=== PATIENT | female | born 1960 ===

== ENCOUNTER 2017-07-20 13:53 | Inpatient (IN) | payer MEDICARE, MEDICAID ==
[2017-07-20 13:53] VITALS: BMI 21.1
[2017-07-20] MEDS ORDERED: Sodium Chloride 0.9% 1,000 ML IV ONE ×2 (14:57→16:52)
--- NOTE | 2017-07-20 15:04 | C.PDOC ---
History Of Present Illness Patient is a 56 y/o F with hx of HIV, CD4 unknown (documented in chart but no positive serology, non-compliant with meds x 2 weeks, SVT (documented on 2016 in chart, no prior EKG to confirm), schizophrenia c/o "pain all over." When attempting to further elicit complaints she reports new R sided foot pain, L foot pain x 6 years, and palpitations. Patient is agitated, with flight of ideas , and nonsensical speech hence further history is unable to be obtained. Time Seen by Provider: 07/20/17 14:16 Chief Complaint (Nursing): Lower Extremity Problem/Injury History Per: Patient History/Exam Limitations: other (agitation, nonsensical speech) Onset/Duration Of Symptoms: Days Current Symptoms Are (Timing): Still Present Recent travel outside of the [place]: No Additional History Per: Patient Past Medical History Reviewed: Historical Data, Nursing Documentation, Vital Signs Vital Signs: Last Vital Signs Temp 101.7 F H 07/20/17 15:20 Pulse 94 H 07/20/17 15:57 Resp 14 07/20/17 15:57 BP 106/69 07/20/17 15:57 Pulse Ox 100 07/20/17 17:10 - Medical History PMH: Anxiety, Bipolar Disorder, HIV, Schizophrenia Denies: Diabetes, Hepatitis, HTN, Seizures, Sexually Transmitted Disease Surgical History: No Surg Hx Family History: States: Unknown Family Hx - Social History Hx Tobacco Use: Yes Hx Alcohol Use: No Hx Substance Use: Yes (LAST USE 5 WEEKS AGO) - Immunization History Hx Tetanus Toxoid Vaccination: No Hx Influenza Vaccination: No Hx Pneumococcal Vaccination: No Review Of Systems Review Of Systems: ROS cannot be obtained secondary to pt's inabilty to answer questions. Physical Exam - Physical Exam Appears: Non-toxic, Agitated, Other (nonsensical speech) Skin: Normal Color, Warm, Dry Head: Atraumatic, Normacephalic Eye(s): bilateral: Normal Inspection, PERRL, EOMI Nose: No Discharge Oral Mucosa: Moist Neck: Normal ROM, Supple Chest: Symmetrical Cardiovascular: Rhythm Regular (Tachycardic), No Murmur Respiratory: Normal Breath Sounds, No Rales, No Rhonchi, No Wheezing Gastrointestinal/Abdominal: Soft, No Tenderness, No Distention, No Rebound Back: Normal Inspection, No CVA Tenderness Extremity: Normal ROM ( X4), No Pedal Edema, No Calf Tenderness, Capillary Refill (< 2 seconds), No Deformity, No Swelling, Other (well healed right toe amputation, no cellulitis, edema, tenderness. distal pulses intact.) Neurological/Psych: Other (flight of ideas, non-sensical speech, emotionally labile, agitated) Disoriented To: Place, Time ED Course And Treatment - Laboratory Results Result Diagrams: 07/20/17 15:07 07/20/17 15:07 O2 Sat by Pulse Oximetry: 100 (On RA) Pulse Ox Interpretation: Normal - Other Rad Foot X-Ray X-Ray: Interpreted by Me, Viewed By Me Interpretation: HISTORY: R foot pain. COMPARISON: 12/05/2014. FINDINGS: BONES: Interval amputation -mid 1st proximal phalangeal shaft level. No periosteal reaction. No subcutaneous emphysema. JOINTS: Normal. SOFT TISSUES : Normal. OTHER FINDINGS: None. IMPRESSION: Interval amputation 1st digit as above. Otherwise unremarkable Progress Note: Plan: -VBG shock panel, EKG, CXR, adenosine 6 mg IVP, IV fluids , Tylenol 650 mg PO, Blood culture, urine culture, Foot X-Ray, UA Critical Care Time - Critical Care Note Total Time (in mins): 30 Documented critical care: time excludes all time spent performing seperately billable procedures. Medical Decision Making Medical Decision Making: MD was called to bed site immediately on triage. EKG showed SVT at 204 bpm, adenosine was given with repeat EKG now showing NSR at 99 BPM, with incomplete RBBB, non specific ST changes, and isolated ST depression in V4 less than 2 mm. Repeat BP was 100/67. Rectal temp showed temp:101.7. Blood and urine cultures ordered. Vbg with lactate ordered. 3:52PM Cxray shows R sided infiltrate. Read officially as "Interval bilateral patchy infiltrate -more conspicuous in the mid right lung zone" LDH WNL. Covered with azithromycin and ceftriaxone. Flu negative. Lactate WNL. Normal O2 saturation. BP WNL. 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 ID and pysch consult placed. Patient is less agitated on reevaluation and seems to understand the need for admission for pneumonia. She reports that she usually follows up at [facility] Disposition - Disposition Disposition: HOSPITALIZED Disposition Time: 14:25 Condition: FAIR Forms: [facility] (Uzbek) - Clinical Impression Clinical Impression: Fever, SVT (supraventricular tachycardia), Schizophrenia, Pneumonia - Scribe Statement The provider has reviewed the documentation as recorded by the Scribe Derrick Mendes All medical record entries made by the Scribe were at my direction and personally dictated by me. I have reviewed the chart and agree that the record accurately reflects my personal performance of the history, physical exam, medical decision making, and the department course for this patient. I have also personally directed, reviewed, and agree with the discharge instructions and disposition.
[2017-07-20 15:12] LABS: BASO # 0.1 K/uL (0.0-0.2); BASO % 0.7 % (0.0-2.0); EOS % 0.1 % (0.0-4.0); HEMATOCRIT 31.6 % (34.0-47.0); LYMPH # 2.8 K/uL (1.0-4.3); LYMPH % 24.3 % (20.0-40.0); MEAN CELL VOLUME 85.7 fL (81.0-99.0); MEAN CORPUSCULAR HEMOGLOBIN 27.9 pg (27.0-31.0); MEAN CORPUSCULAR HGB CONC 32.5 g/dL (33.0-37.0); MEAN PLATELET VOLUME 7.9 fL (7.2-11.7); MONO # 1.2 K/uL (0.0-0.8); MONO % 10.1 % (0.0-10.0); NRBC % 0.1 % (0.0-2.0); WHITE BLOOD COUNT 11.7 K/uL (4.8-10.8)
[2017-07-20 15:28] LABS: ALCOHOL SERUM < 10 mg/dl (0-10); BILIRUBIN,TOTAL 0.7 mg/dL (0.2-1.3); CALCIUM 7.9 mg/dl (8.6-10.4); GFR AFRICAN-AMERICAN > 60; GLUCOSE,RANDOM 99 mg/dL (65-105)
[2017-07-20 15:31] LABS: ALB/GLOB RATIO 0.8 (1.0-2.1); INR 1.2
[2017-07-20 15:33] LABS: AST/SGOT 63 U/L (14-36); BLOOD UREA NITROGEN 29 mg/dL (7-17); CARBON DIOXIDE 22 mmol/L (22-30); CHLORIDE 103 mmol/L (98-107); MAGNESIUM 1.9 mg/dL (1.6-2.3); PHOSPHOROUS 4.5 mg/dL (2.5-4.5); POTASSIUM 5.2 mmol/L (3.6-5.2); SODIUM 133 mmol/L (132-148); TOTAL PROTEIN 7.1 g/dL (6.3-8.3)
[2017-07-20 15:34] LABS: ALKALINE PHOSPHATASE 91 U/L (38-126); ALT/SGPT 54 U/L (9-52)
[2017-07-20] MEDS ORDERED: cefTRIAXone IV 1 gm in Dextros 50 ML IVPB ONE (15:51)
[2017-07-20] MEDS ORDERED: Azithromycin 500 MG in Sodium Chloride 0.9% 250 ML IVPB STA (15:51)
[2017-07-20 16:23] LABS: VENOUS BLOOD GAS BASE EXCESS -7.1 mmol/L (0.0-2.0); VENOUS BLOOD GAS PCO2 29 mmHg (40-60); VENOUS BLOOD PH 7.37 (7.32-7.43)
--- NOTE | 2017-07-20 16:28 | RAD ---
PROCEDURE: Right Foot Radiographs. HISTORY: R foot pain COMPARISON: 12/05/2014 FINDINGS: BONES: Interval amputation -mid 1st proximal phalangeal shaft level. No periosteal reaction. No subcutaneous emphysema. JOINTS: Normal. SOFT TISSUES: Normal. OTHER FINDINGS: None. IMPRESSION: Interval amputation 1st digit as above. Otherwise unremarkable
--- NOTE | 2017-07-20 16:40 | RAD ---
HISTORY: chest tightness COMPARISON: 08/28/2015 FINDINGS: LUNGS: Interval patchy infiltrates -mid right lung zone and left lung base noted PLEURA: No significant pleural effusion identified, no pneumothorax apparent. CARDIOVASCULAR: Minimal cardiomegaly-similar OSSEOUS STRUCTURES: No significant abnormalities. VISUALIZED UPPER ABDOMEN: Normal. OTHER FINDINGS: None. IMPRESSION: Interval bilateral patchy infiltrate -more conspicuous in the mid right lung zone
[2017-07-20 16:54] LABS: RBC URINE < 1 /hpf (0-3); URINE BACTERIA RARE (<OCC); URINE BILIRUBIN NEGATIVE (NEGATIVE); URINE BLOOD NEGATIVE (NEGATIVE); URINE COLOR Yellow (YELLOW); URINE GLUCOSE (UA) NORMAL (Normal); URINE KETONE TRACE mg/dL (NEGATIVE); URINE LEUKOCYTE ESTERASE NEG Leu/uL (Negative); URINE PROTEIN 1+ mg/dL (NEGATIVE); WBC URINE 1 /hpf (0-5)
[2017-07-21 07:51] LABS: BASO % 0.5 % (0.0-2.0); EOS # 0.1 K/uL (0.0-0.7); EOS % 1.2 % (0.0-4.0); HEMATOCRIT 31.1 % (34.0-47.0); LYMPH # 1.3 K/uL (1.0-4.3); LYMPH % 24.7 % (20.0-40.0); MEAN CELL VOLUME 86.5 fL (81.0-99.0); MEAN CORPUSCULAR HEMOGLOBIN 27.8 pg (27.0-31.0); MEAN CORPUSCULAR HGB CONC 32.1 g/dL (33.0-37.0); MEAN PLATELET VOLUME 7.8 fL (7.2-11.7); MONO # 0.5 K/uL (0.0-0.8); MONO % 9.2 % (0.0-10.0)
[2017-07-21 07:54] LABS: WHITE BLOOD COUNT 5.5 K/uL (4.8-10.8)
[2017-07-21 08:27] LABS: ALB/GLOB RATIO 0.9 (1.0-2.1); ALKALINE PHOSPHATASE 90 U/L (38-126); ALT/SGPT 57 U/L (9-52); AST/SGOT 44 U/L (14-36); BILIRUBIN,TOTAL 0.2 mg/dL (0.2-1.3); BLOOD UREA NITROGEN 19 mg/dL (7-17); CALCIUM 7.9 mg/dl (8.6-10.4); CARBON DIOXIDE 24 mmol/L (22-30); CHLORIDE 112 mmol/L (98-107); GFR AFRICAN-AMERICAN > 60; GLUCOSE,RANDOM 129 mg/dL (65-105); POTASSIUM 3.9 mmol/L (3.6-5.2); SODIUM 142 mmol/L (132-148); TOTAL PROTEIN 5.9 g/dL (6.3-8.3)
[2017-07-21] MEDS: Enoxaparin 40 mg Syringe SC SCH (10:47)
--- NOTE | 2017-07-21 15:02 | PCM.PSYCH ---
Initial Psychiatric Evaluation - Initial Psychiatric Evaluation Type of Admission: Voluntary Legal Status: Capacity Chief Complaint (in patient's own words): " My foot just hurts" History of Present Illness and Precipitating Events: The pt is seen, chart reviewed, case discussed with staff Pt is a 56 y/o single female with a history HIV, SVT, Schizophrenia presents to the ED for generalized pain. As per the ED note, Patient c/o "pain all over." When attempting to further elicit complaints she reports new R sided foot pain, L foot pain x 6 years, and palpitations. Patient is agitated, with flight of ideas, and nonsensical speech hence further history is unable to be obtained Pt reports that she is homeless and unemployed. Pt appears disorganized, disheveled, and experiencing Tardive Dyskinesia. Pt reports feelings of anxiety. Pt denies suicidal and homicidal ideations. Pt denies feleing depressed and paranoia at the moment. Pt stated that she slept great and her appetite was good. The pt is a poor historian. Pt reports crack cocaine use 5 weeks ago. She used to smoke "$20-40 worth of crack cocaine for 5 and 1/2 years occasionally. Pt reports smoking 1/2 pack of cigarettes a day for an unspecified amount of time. Pt denies use of other illicit drugs. Pt has a constricted affect and disorganized speech pattern. Pt is AAOx3. Past MHX: HIV, SVT, Schizophrenia Current Medications: Active Medications Generic Name Dose Route Start Last Admin Trade Name Freq PRN Reason Stop Dose Admin Acetaminophen 650 mg 07/20/17 22:59 Tylenol 325mg Tab PO Q6 PRN temp >100.4 or pain Albuterol Sulfate 1.25 mg 07/21/17 16:00 Albuterol 0.042% Inhal Nicol (1.25mg/3ml) Ud INH RQ6 [facility] Enoxaparin Sodium 40 mg 07/21/17 10:30 07/21/17 10:47 Lovenox SC 40 mg DAILY [facility]I Administration Azithromycin 500 mg/ Sodium 250 mls @ 250 mls/hr 07/21/17 17:00 Chloride IVPB DAILY@1700 [facility] Ceftriaxone Sodium 1 gm/ 100 mls @ 100 mls/hr 07/21/17 18:00 Sodium Chloride IVPB BID [facility] Pneumococcal Polyvalent Vaccine 0.5 ml 07/24/17 10:00 Pneumovax 23 Vaccine IM 07/24/17 10:01 .ONCE ONE Past Psychiatric History - Past Psychiatric History Previous Treatment History: Inpatient Pertinent Medical Hx (Current Medical&Sleep Prob, Allergies): Allergies Allergy/AdvReac Type Severity Reaction Status Date / Time ibuprofen Allergy ANAPHYLAXIS Verified 07/20/17 14:48 Gabapentin 300 tab PO TID 06/06/14 Adderall 30 mg PO BID 01/29/15 Ibuprofen 1 tab PO Q6H PRN #15 tab 01/29/15 Benztropine [Cogentin] 1 mg PO BID #60 tab 07/29/15 QUEtiapine [Seroquel] 100 mg PO HS #30 tab 07/29/15 fluPHENAZine [Prolixin] 10 mg PO BID #60 tab 07/29/15 Ibuprofen [Motrin] 400 mg PO Q6 #30 tab 06/11/16 Naproxen [Naprosyn] 1 tab PO BID PRN #25 tab 12/20/16 Unobtainable 03/20/17 Review of Systems - Review of Systems All systems: reviewed and no additional remarkable complaints except - Psychiatric Psychiatric: Anxiety, Irritability, Mood Swings, Paranoia Mental Status Examination - Personal Presentation Personal Presentation: Looks stated age - Affect Affect: Constricted - Motor Activity Motor Activity: Calm - Reliability in Providing Information Reliability in Providing Information: Poor, due to altered mood - Speech Speech: Disorganized - Mood Mood: Depressed - Formal Thought Process Formal Thought Process: Loosening of associations - Obsessions/Compulsions Obsessions: No Compulsions: No - Cognitive Functions Orientation: Person, Place, Situation, Time Sensorium: Alert Attention/Concentration: Attentive Abstract Thinking: [place] Estimate of Intelligence: Below average Judgement: Imparied, as evidence by: Poor judgement, Imparied, as evidence by: Lack of insight into illness - Risk Risk: Diminished functioning DSM 5 DX - DSM 5 DSM 5 Diagnosis: Cocaine use disorder SCPT - Recommended/Plan of Treatment Treatment Recommendations and Plan of Treatment: Hold all psych meds. - Smoking Cessation Smoking Cessation Initiated: No
[2017-07-21] MEDS: Albuterol 0.042% Inhal Sol (1.25 mg/3 mL) UD INH SCH ×2 (16:23→19:34)
[2017-07-21] MEDS: Azithromycin 500 MG in Sodium Chloride 0.9% 250 ML IVPB SCH (17:20)
--- NOTE | 2017-07-21 22:12 | CP.PCM.CON ---
History of Present Illness - History of Present Illness History of Present Illness: dictated Past Patient History - Infectious Disease Hx of Infectious Diseases: None - Past Social History Smoking Status: Heavy Smoker > 10 Cigarettes Daily - CARDIAC Hx Cardiac Disorders: No Hx Hypertension: No - PULMONARY Hx Respiratory Disorders: No Hx Tuberculosis: No - NEUROLOGICAL Hx Neurological Disorder: No Hx Seizures: No - HEENT Hx HEENT Problems: No - RENAL Hx Chronic Kidney Disease: No - ENDOCRINE/METABOLIC Hx Endocrine Disorders: No - HEMATOLOGICAL/ONCOLOGICAL Hx Blood Disorders: Yes Hx Human Immunodeficiency Virus (HIV): Yes - INTEGUMENTARY Hx Dermatological Problems: No - MUSCULOSKELETAL/RHEUMATOLOGICAL Hx Musculoskeletal Disorders: No Hx Falls: No - GASTROINTESTINAL Hx Gastrointestinal Disorders: No - GENITOURINARY/GYNECOLOGICAL Hx Genitourinary Disorders: No Hx Sexually Transmitted Disorders: No - PSYCHIATRIC Hx Anxiety: Yes Hx Bipolar Disorder: Yes Hx Paranoia: Yes Hx Schizophrenia: Yes Hx Substance Use: Yes (Per pt) - SURGICAL HISTORY Hx Surgeries: No - ANESTHESIA Hx Anesthesia: No Meds Allergies/Adverse Reactions: Allergies Allergy/AdvReac Type Severity Reaction Status Date / Time ibuprofen Allergy ANAPHYLAXIS Verified 07/20/17 14:48 - Medications Medications: Current Medications Acetaminophen (Tylenol 325mg Tab) 650 mg PO Q6 PRN PRN Reason: temp >100.4 or pain Albuterol Sulfate (Albuterol 0.042% Inhal Nicol (1.25mg/3ml) Ud) 1.25 mg INH RQ6 [facility] Last Admin: 07/21/17 19:34 Dose: 1.25 mg Enoxaparin Sodium (Lovenox) 40 mg SC DAILY [facility] Last Admin: 07/21/17 10:47 Dose: 40 mg Azithromycin 500 mg/ Sodium (Chloride) 250 mls @ 250 mls/hr IVPB DAILY@1700 [facility] Last Admin: 07/21/17 17:20 Dose: 250 mls/hr Ceftriaxone Sodium 1 gm/ (Sodium Chloride) 100 mls @ 100 mls/hr IVPB BID [facility] Last Admin: 07/21/17 17:19 Dose: 100 mls/hr Pneumococcal Polyvalent Vaccine (Pneumovax 23 Vaccine) 0.5 ml IM .ONCE ONE Stop: 07/24/17 10:01 Results - Vital Signs Recent Vital Signs: Last Vital Signs Temp 98.6 F 07/21/17 15:00 Pulse 93 H 07/21/17 16:25 Resp 20 07/21/17 15:00 BP 105/68 07/21/17 15:00 Pulse Ox 97 07/21/17 15:00 - Labs Result Diagrams: 07/21/17 07:18 07/21/17 07:18 Labs: Laboratory Results - last 24 hr 07/21/17 07/21/17 07/21/17 07:18 07:18 11:34 WBC 5.5 D RBC 3.59 L Hgb 10.0 L Hct 31.1 L MCV 86.5 MCH 27.8 MCHC 32.1 L RDW 14.0 Plt Count 324 MPV 7.8 Neut % (Auto) 64.4 Lymph % (Auto) 24.7 [place] % (Auto) 9.2 Eos % (Auto) 1.2 Baso % (Auto) 0.5 Neut # 3.5 Lymph # 1.3 [place] # 0.5 Eos # 0.1 Baso # 0.0 Sodium 142 Potassium 3.9 Chloride 112 H Carbon Dioxide 24 Anion Gap 10 BUN 19 H Creatinine 0.7 Est GFR ( Amer) > 60 Est GFR (Non-Af Amer) > 60 POC Glucose (mg/dL) 102 Random Glucose 129 H Calcium 7.9 L Total Bilirubin 0.2 AST 44 H D ALT 57 H Alkaline Phosphatase 90 Total Protein 5.9 L Albumin 2.7 L Globulin 3.2 Albumin/Globulin Ratio 0.9 L
[2017-07-22] MEDS: Albuterol 0.042% Inhal Sol (1.25 mg/3 mL) UD INH SCH ×4 (01:31→19:28)
--- NOTE | 2017-07-22 05:57 | CON ---
INFECTIOUS DISEASE CONSULTATION REQUESTED BY: Precious Cannon MD HISTORY OF PRESENT ILLNESS: This patient is a 56-year-old female. She has a history of HIV disease. She does not remember her CD4 count. She states she ran out of her prescriptions; her prescriptions come from [facility] she states which is close by. She was not able to tell me the town. She was awake and alert when I saw her today and she states she has also had SVT in 2013 and schizophrenia. She came in with pain allover, and she states she has right side foot pain. She showed me her second toe with the ulcer and was painful. She is status post amputation of the great toe, but that was also soft. She also has had previously foot pain on the left side six years ago. She does complain of some cough, denies any fevers, and comes in with lower extremity pain and she was able to give me that history. She did have a fever of 101.7. She also gives me a history of being homeless. Pulse is 94 and blood pressure was 106/69 in the emergency room. PAST MEDICAL HISTORY: Significant for bipolar disorder, HIV, schizophrenia, and anxiety, and there is no history of diabetes. She denies any STDs. She does admit to having HIV disease. PAST SURGICAL HISTORY: Great toe amputation on the right foot. FAMILY HISTORY: Unknown. SOCIAL HISTORY: Significant for tobacco use. She also said she smoked coke and denied any alcohol abuse. Substance abuse, she has not done for the last five weeks. REVIEW OF SYSTEMS: She denied any headaches, denies any nose or throat problems. Did have cough, denies chest pain. Denies any abdominal pain. No nausea, no vomiting. She did complain of pain allover, more on the right foot and she said she stepped on somebody and then she was putting BenGay and after that not much, and we will try to reach the [facility] tomorrow. MEDICATIONS: She is on Tylenol, she is on albuterol, Zithromax, and Rocephin and on Lovenox. She got a Pneumovax vaccine today, which is active. She did not get it; I think she is going to get it on . PHYSICAL EXAMINATION: VITAL SIGNS: T-max is 98.6, pulse is 93, blood pressure 105/68, and respirations are 20. HEENT: Head is atraumatic, normocephalic. Pupils are reacting to light. Eye movements are unremarkable. NECK: Supple. LUNGS: Clear. Decreased breath sounds bilaterally. HEART: S1 and S2 are regular. No murmurs appreciated, ABDOMEN: Soft, nontender. No guarding. No rigidity present. PSYCHIATRIC: She is depressed. EXTREMITIES: Right foot second toe has tenderness, ulcer, and even the first toe post amputation shows bogginess. Left foot is unremarkable, so we will get x-ray of the foot done and may be an MRI later. LABORATORY DATA: White count is 5.5, hemoglobin 10, hematocrit 31.1, and platelet count is 324. She had an ABG done, which was 7.37, CO2 was 29, and pO2 was 27, it is probably venous. Lactate level was 1.5. Sodium 142, potassium 3.9, chloride is 112, anion gap is 10, BUN is 19 today, it was 29, and creatinine is 0.7. Her liver enzymes are elevated. AST is 44, ALT is 57, potassium was 3.2 yesterday, it is 3.9 today. LDH level is 618, and 618 is the higher; normal range, it is from 313 to 618, so that is normal. Her chest x-ray shows interval bilateral fatty infiltrate, diffuse, more conspicuous in the mid-right lung field. The foot x-ray shows interval amputation of the first digit, otherwise unremarkable. So it does not say anything about the second toe, which appears to be more tender and bent over with ulcer, but we will re-evaluate and treat her for pneumonia. ASSESSMENT AND PLAN: She does have leg ulcer and status post amputation of the first toe, and human immunodeficiency virus. Plan to get a CD4 and CD8 count, HIV viral load, hepatitis profile, and we will see if we can get hold of the pharmacy, and find out what antiviral she was on, to restart that and see with the CD4 count, what opportunistic infections we can prevent by giving prophylaxis. We will follow. Izabel Roberto MD
--- NOTE | 2017-07-22 09:02 | CP.PCM.PN ---
Subjective - Date & Time of Evaluation Date of Evaluation: 07/22/17 Time of Evaluation: 08:59 - Subjective Subjective: still coughing sob has pain both legs and thigh Objective - Vital Signs/Intake and Output Vital Signs (last 24 hours): Temp Pulse Resp BP Pulse Ox 99.3 F 85 20 99/62 L 97 07/21/17 23:00 07/22/17 00:00 07/21/17 23:00 07/21/17 23:00 07/21/17 23:00 Intake and Output: 07/22/17 07/22/17 06:59 18:59 Intake Total 880 Output Total 800 Balance 80 - Medications Medications: Current Medications Acetaminophen (Tylenol 325mg Tab) 650 mg PO Q6 PRN PRN Reason: temp >100.4 or pain Albuterol Sulfate (Albuterol 0.042% Inhal Nicol (1.25mg/3ml) Ud) 1.25 mg INH RQ6 [facility] Last Admin: 07/22/17 01:31 Dose: 1.25 mg Enoxaparin Sodium (Lovenox) 40 mg SC DAILY [facility] Last Admin: 07/21/17 10:47 Dose: 40 mg Azithromycin 500 mg/ Sodium (Chloride) 250 mls @ 250 mls/hr IVPB DAILY@1700 [facility] Last Admin: 07/21/17 17:20 Dose: 250 mls/hr Ceftriaxone Sodium 1 gm/ (Sodium Chloride) 100 mls @ 100 mls/hr IVPB BID [facility] Last Admin: 07/21/17 17:19 Dose: 100 mls/hr Pneumococcal Polyvalent Vaccine (Pneumovax 23 Vaccine) 0.5 ml IM .ONCE ONE Stop: 07/24/17 10:01 - Labs Labs: 07/21/17 07:18 07/21/17 07:18 PT 13.2 SECONDS (9.7-12.2) H 07/20/17 15:07 INR 1.2 07/20/17 15:07 APTT 32 SECONDS (21-34) 07/20/17 15:07 - Constitutional Appears: Non-toxic, In Acute Distress - Head Exam Head Exam: NORMOCEPHALIC - Eye Exam Eye Exam: Normal appearance Pupil Exam: NORMAL ACCOMODATION - ENT Exam ENT Exam: Mucous Membranes Moist - Neck Exam Neck Exam: Full ROM - Respiratory Exam Respiratory Exam: Decreased Breath Sounds, Rales - Cardiovascular Exam Cardiovascular Exam: REGULAR RHYTHM - GI/Abdominal Exam GI & Abdominal Exam: Soft - Rectal Exam Rectal Exam: NORMAL INSPECTION - Extremities Exam Extremities Exam: Calf Tenderness - Back Exam Back Exam: NORMAL INSPECTION - Neurological Exam Neurological Exam: Normal Gait - Psychiatric Exam Psychiatric exam: Normal Affect - Skin Skin Exam: Pallor Assessment and Plan - Assessment and Plan (Free Text) Assessment: ac bilateral pnumonia chf pain legs Plan: as per orders
[2017-07-22] MEDS: Enoxaparin 40 mg Syringe SC SCH (10:40)
[2017-07-22] MEDS: Azithromycin 500 MG in Sodium Chloride 0.9% 250 ML IVPB SCH (17:31)
[2017-07-22 18:59] LABS: % CD3 (MATURE T CELL) 74 Percent (57-85)
[2017-07-23] MEDS: Albuterol 0.042% Inhal Sol (1.25 mg/3 mL) UD INH SCH ×4 (01:54→19:41)
--- NOTE | 2017-07-23 03:49 | CON ---
DATE: CARDIOLOGY CONSULTATION REASON FOR CONSULTATION: SVT. HISTORY OF PRESENT ILLNESS: The patient is a 56-year-old homeless female who has a history of HIV, history of schizophrenia, who presented because of right foot pain as well as left foot pain and palpitationIn the ER, the patient was noted to be in SVT with a heart rate of 204, which was terminated with IV adenosine. When the patient was asked about any prior cardiac history or history of palpitation, the patient was not cooperative in answering my questions. SOCIAL HISTORY: The patient is a smoker, occasional drinker. MEDICATIONS: Albuterol inhaler q. 6 hours, Zithromax 500 mg intravenously daily, Rocephin 1 g intravenously twice a day, Lovenox 40 mg subcutaneously once a day. Pneumococcal vaccine was given. Tylenol 650 mg q. 6 hours p.r.n. for fever. REVIEW OF SYSTEMS: The patient was reported to have had fever of 101.7 yesterday. No reported ventricular tachycardia. No reported hypotension. No reported suicidal ideations. PAST MEDICAL HISTORY: Schizophrenia, HIV positive. PHYSICAL EXAMINATION GENERAL: The patient is a middle-aged female, who is restless and cooperative but does not appear to be in any respiratory distress. VITAL SIGNS: Blood pressure 101/67, heart rate 76, temperature 97.8, respirations 18. HEENT: Pale conjunctivae. CHEST: Bilateral rhonchi. HEART: S1 and S2 regular. ABDOMEN: Soft. EXTREMITIES: No edema. LABORATORY DATA: Yesterday's hemoglobin and hematocrit 10 and 31.1, white count and platelet count are within normal limits. Yesterday's SMA-7: Sodium 142, potassium 3.9, chloride 112, CO2 24, glucose 129, BUN 19, creatinine 0.7. INR is 1.2. Urine drug screen is negative. HIV-1 and 2 antibody screen is reactive. I did review the initial EKG in the Emergency Room, which revealed SVT at the rate of 104, incomplete right bundle-branch block and lateral ST segment depression. Foot x-ray revealed an interval amputation at the mid first proximal phalangeal shaft level of the right foot. Chest x-ray revealed prominent bronchovascular markings. ASSESSMENT: 1. Reentrant supraventricular tachycardia. 2. Schizophrenia. 3. Consider underlying pneumonia. RECOMMENDATIONS: Continue current IV Zithromax and IV Rocephin. I will start Cardizem at 60 mg p.o. q. 8 hours. Obtain an echocardiogram and TSH level. Cornelio Degroot MD
[2017-07-23] MEDS: Enoxaparin 40 mg Syringe SC SCH (10:12)
--- NOTE | 2017-07-23 10:47 | CP.PCM.PN ---
Subjective - Date & Time of Evaluation Date of Evaluation: 07/23/17 Time of Evaluation: 10:44 - Subjective Subjective: pt roshni all night sob weeke Objective - Vital Signs/Intake and Output Vital Signs (last 24 hours): Temp Pulse Resp BP Pulse Ox 97.6 F 80 20 115/76 96 07/23/17 08:51 07/23/17 08:51 07/23/17 08:51 07/23/17 08:51 07/23/17 08:51 Intake and Output: 07/23/17 07/23/17 06:59 18:59 Intake Total 750 Output Total 700 Balance 50 - Medications Medications: Current Medications Acetaminophen (Tylenol 325mg Tab) 650 mg PO Q6 PRN PRN Reason: temp >100.4 or pain Albuterol Sulfate (Albuterol 0.042% Inhal Nicol (1.25mg/3ml) Ud) 1.25 mg INH RQ6 [facility]S AT [facility] Last Admin: 07/23/17 08:48 Dose: Not Given Diltiazem HCl (Cardizem) 60 mg PO TID [facility]S [facility]CLUDE 234 BEDS AT THE [facility] Last Admin: 07/23/17 10:10 Dose: 60 mg Enoxaparin Sodium (Lovenox) 40 mg SC DAILY [facility]S [facility]CLUDE 234 BEDS AT THE [facility] Last Admin: 07/23/17 10:12 Dose: Not Given Azithromycin 500 mg/ Sodium (Chloride) 250 mls @ 250 mls/hr IVPB DAILY@1700 [facility]CLUDE 234 BEDS AT THE [facility] Last Admin: 07/22/17 17:31 Dose: 250 mls/hr Ceftriaxone Sodium 1 gm/ (Sodium Chloride) 100 mls @ 100 mls/hr IVPB BID [facility]S [facility]CLUDE 234 BEDS AT THE [facility] Last Admin: 07/23/17 10:10 Dose: 100 mls/hr Pneumococcal Polyvalent Vaccine (Pneumovax 23 Vaccine) 0.5 ml IM .ONCE ONE Stop: 07/24/17 10:01 - Labs Labs: 07/21/17 07:18 07/21/17 07:18 PT 13.2 SECONDS (9.7-12.2) H 07/20/17 15:07 INR 1.2 07/20/17 15:07 APTT 32 SECONDS (21-34) 07/20/17 15:07 - Constitutional Appears: Non-toxic - Head Exam Head Exam: ATRAUMATIC - Eye Exam Eye Exam: Normal appearance Pupil Exam: NORMAL ACCOMODATION - ENT Exam ENT Exam: Normal Exam - Neck Exam Neck Exam: Full ROM - Respiratory Exam Respiratory Exam: Decreased Breath Sounds, Rales - Cardiovascular Exam Cardiovascular Exam: REGULAR RHYTHM - GI/Abdominal Exam GI & Abdominal Exam: Soft - Rectal Exam Rectal Exam: NORMAL INSPECTION - Extremities Exam Extremities Exam: Normal Inspection - Neurological Exam Neurological Exam: Oriented x3 - Psychiatric Exam Psychiatric exam: Normal Mood - Skin Skin Exam: Pallor Assessment and Plan - Assessment and Plan (Free Text) Assessment: ac bilateral pnumonia hiv malnutrition Plan: as per orders
--- NOTE | 2017-07-23 16:41 | PN ---
DATE: FOLLOWUP SUBJECTIVE: There is no reported SVT. The patient denies any chest pain. PHYSICAL EXAMINATION: VITAL SIGNS: Blood pressure 150/76, heart rate 80, temperature 97.6, respirations 20. HEENT: Normocephalic. CHEST: Clear. HEART: S1 and S2 regular. EXTREMITIES: No edema. ASSESSMENT: 1. Paroxysmal reentrant supraventricular tachycardia. 2. Schizophrenia. 3. Consider underlying pneumonia. RECOMMENDATIONS: Continue current albuterol inhaler, IV Zithromax 500 mg daily, IV Rocephin at 1 g twice a day, subcutaneous Lovenox is 40 mg once a day. Oral Cardizem three times a day. Awaiting to see the family to discuss the further medical details of the patient's condition. Cornelio Dgeroot MD
[2017-07-23] MEDS: Azithromycin 500 MG in Sodium Chloride 0.9% 250 ML IVPB SCH (18:35)
[2017-07-24] MEDS: Albuterol 0.042% Inhal Sol (1.25 mg/3 mL) UD INH SCH ×5 (01:44→20:25)
[2017-07-24] MEDS ORDERED: Pneumococcal 23-Valent Vaccine IM ONE (10:00)
[2017-07-24] MEDS ORDERED: Influenza Vaccine 60 mcg/0.5 mL SYR (4YR UP) IM ONE (10:00)
[2017-07-24] MEDS: Enoxaparin 40 mg Syringe SC SCH (11:00)
--- NOTE | 2017-07-24 12:42 | CARD ---
APPROVED REPORT EXAM: Two-dimensional and M-mode echocardiogram with Doppler and color Doppler. Other Information Quality : GoodRhythm : INDICATION Congestive Heart Failure 2D DIMENSIONS IVSd0.9 (0.7-1.1cm)LVDd3.8 (3.9-5.9cm) PWd0.8 (0.7-1.1cm)LVDs2.0 (2.5-4.0cm) FS (%) 46.1 %LVEF (%)78.2 (>50%) M-Mode DIMENSIONS RVDd2.23 (2.1-3.2cm)Left Atrium (MM)3.11 (2.5-4.0cm) IVSd0.93 (0.7-1.1cm)Aortic Root3.07 (2.2-3.7cm) LVDd4.03 (4.0-5.6cm)Aortic Cusp Exc.1.85 (1.5-2.0cm) PWd0.85 (0.7-1.1cm)FS (%) 44 % LVDs2.26 (2.0-3.8cm)LVEF (%)76 (>50%) Aortic Valve AI P 1/2 [id number] Mitral Valve MV E Leagtsfy17.4cm/sMV A Fmqykomz36.7cm/sE/A ratio1.1 TDI E/Lateral E'0.0E/Medial E'0.0 Tricuspid Valve TR Peak [id number]/sTR Peak Gr.[id number] LEFT VENTRICLE The left ventricle is normal size. There is normal left ventricular wall thickness. Left ventricle systolic function is normal. The Ejection Fraction is 65-70%. There is normal LV segmental wall motion. The left ventricular diastolic function is normal. There is no ventricular septal defect visualized. RIGHT VENTRICLE The right ventricle is normal size. The right ventricular systolic function is normal. ATRIA The left atrium size is normal. The right atrium size is normal. AORTIC VALVE The aortic valve is mildly sclerotic. The aortic valve is tri-cuspid. There is mild to moderate aortic regurgitation. There is no aortic valvular stenosis. MITRAL VALVE The mitral valve is normal in structure. There is no evidence of mitral valve prolapse. Mitral regurgitation is mild. TRICUSPID VALVE The tricuspid valve is normal in structure. There is trace to mild tricuspid regurgitation. Right ventricular systolic pressure is estimated at 40-50 mmHg. There is mild-moderate pulmonary hypertension. PULMONIC VALVE The pulmonary valve is normal in structure. There is no pulmonic valvular regurgitation. GREAT VESSELS The aortic root is normal in size. The ascending aorta is normal in size. The IVC is normal in size and collapses >50% with inspiration. PERICARDIAL EFFUSION There is no pericardial effusion. <Conclusion> Left ventricle systolic function is normal. The Ejection Fraction is 65-70%. The left ventricular diastolic function is normal. There is mild to moderate aortic regurgitation. Mitral regurgitation is mild. There is mild-moderate pulmonary hypertension.
--- NOTE | 2017-07-24 17:35 | CP.PCM.PN ---
Subjective - Date & Time of Evaluation Date of Evaluation: 07/24/17 Time of Evaluation: 17:32 - Subjective Subjective: pt feels bad still has alot of cough sob bacl pain leg pain Objective - Vital Signs/Intake and Output Vital Signs (last 24 hours): Temp Pulse Resp BP Pulse Ox 97.3 F L 99 H 20 94/60 L 97 07/24/17 16:00 07/24/17 16:00 07/24/17 16:00 07/24/17 16:00 07/24/17 16:00 Intake and Output: 07/24/17 07/24/17 06:59 18:59 Intake Total 1300 Output Total 1550 Balance -250 - Medications Medications: Current Medications Acetaminophen (Tylenol 325mg Tab) 650 mg PO Q6 PRN PRN Reason: temp >100.4 or pain Albuterol Sulfate (Albuterol 0.042% Inhal Nicol (1.25mg/3ml) Ud) 1.25 mg INH RQ6 [facility] Last Admin: 07/24/17 14:14 Dose: 1.25 mg Enoxaparin Sodium (Lovenox) 40 mg SC DAILY [facility] Last Admin: 07/24/17 11:00 Dose: Not Given Azithromycin 500 mg/ Sodium (Chloride) 250 mls @ 250 mls/hr IVPB DAILY@1700 [facility] Last Admin: 07/23/17 18:35 Dose: 250 mls/hr Ceftriaxone Sodium 1 gm/ (Sodium Chloride) 100 mls @ 100 mls/hr IVPB BID [facility] Last Admin: 07/24/17 13:49 Dose: 100 mls/hr - Labs Labs: 07/21/17 07:18 07/21/17 07:18 PT 13.2 SECONDS (9.7-12.2) H 07/20/17 15:07 INR 1.2 07/20/17 15:07 APTT 32 SECONDS (21-34) 07/20/17 15:07 - Constitutional Appears: In Acute Distress - Head Exam Head Exam: NORMAL INSPECTION - Eye Exam Eye Exam: EOMI Pupil Exam: NORMAL ACCOMODATION - ENT Exam ENT Exam: Mucous Membranes Moist - Neck Exam Neck Exam: Full ROM - Respiratory Exam Respiratory Exam: Clear to Ausculation Bilateral - Cardiovascular Exam Cardiovascular Exam: REGULAR RHYTHM - GI/Abdominal Exam GI & Abdominal Exam: Normal Bowel Sounds - Rectal Exam Rectal Exam: NORMAL INSPECTION - Exam Exam: NORMAL INSPECTION - Extremities Exam Extremities Exam: Normal Inspection - Back Exam Back Exam: NORMAL INSPECTION - Neurological Exam Neurological Exam: Normal Gait - Psychiatric Exam Psychiatric exam: Normal Affect - Skin Skin Exam: Pallor Assessment and Plan - Assessment and Plan (Free Text) Assessment: ac persistant cough bilateral pnumonia sob hiv back pain leg pain Plan: as per orders
[2017-07-24] MEDS: Azithromycin 500 MG in Sodium Chloride 0.9% 250 ML IVPB SCH (17:55)
--- NOTE | 2017-07-24 19:18 | CARD ---
APPROVED REPORT EKG Measurement Heart [id number] NJ [id number] <Conclusion> Sinus rhythm with short NJ Right atrial enlargement Incomplete right bundle branch block Nonspecific ST abnormality Abnormal ECG
--- NOTE | 2017-07-24 19:18 | CARD ---
APPROVED REPORT EKG Measurement Heart [id number] <Conclusion> Supraventricular tachycardia ST & T wave abnormality, consider inferior ischemia Abnormal ECG
--- NOTE | 2017-07-24 19:50 | CP.PCM.PN ---
Subjective - Date & Time of Evaluation Date of Evaluation: 07/24/17 Time of Evaluation: 03:00 - Subjective Subjective: dictated Objective - Vital Signs/Intake and Output Vital Signs (last 24 hours): Temp Pulse Resp BP Pulse Ox 97.3 F L 99 H 20 94/60 L 97 07/24/17 16:00 07/24/17 16:00 07/24/17 16:00 07/24/17 16:00 07/24/17 16:00 - Medications Medications: Current Medications Acetaminophen (Tylenol 325mg Tab) 650 mg PO Q6 PRN PRN Reason: temp >100.4 or pain Last Admin: 07/24/17 17:53 Dose: 650 mg Albuterol Sulfate (Albuterol 0.042% Inhal Nicol (1.25mg/3ml) Ud) 1.25 mg INH RQ6 [facility] Last Admin: 07/24/17 14:14 Dose: 1.25 mg Enoxaparin Sodium (Lovenox) 40 mg SC DAILY [facility] Last Admin: 07/24/17 11:00 Dose: Not Given Azithromycin 500 mg/ Sodium (Chloride) 250 mls @ 250 mls/hr IVPB DAILY@1700 [facility] Last Admin: 07/24/17 17:55 Dose: 250 mls/hr Ceftriaxone Sodium 1 gm/ (Sodium Chloride) 100 mls @ 100 mls/hr IVPB BID [facility] Last Admin: 07/24/17 17:54 Dose: 100 mls/hr - Labs Labs: 07/21/17 07:18 07/21/17 07:18 PT 13.2 SECONDS (9.7-12.2) H 07/20/17 15:07 INR 1.2 07/20/17 15:07 APTT 32 SECONDS (21-34) 07/20/17 15:07
--- NOTE | 2017-07-24 21:47 | PN ---
SUBJECTIVE: The patient is uncooperative today. No reported SVT. PHYSICAL EXAMINATION: VITAL SIGNS: Blood pressure 94/60, heart rate 99, temperature 97.3, respirations 20. HEENT: Normocephalic. CHEST: Bilateral rhonchi. HEART: S1 and S2 regular. EXTREMITIES: No edema. ASSESSMENT: 1. Paroxysmal reentrant supraventricular tachycardia. 2. Schizophrenia. 3. Human immunodeficiency virus positive. 4. Ouzq-df-jwzxxvgx pulmonary hypertension. 5. Tqck-jb-xkuxpwam aortic insufficiency. 6. Reduced left ventricular diastolic dysfunction. RECOMMENDATIONS: Continue albuterol inhaler, reduce Cardizem to 30 mg t.i.d. Continue IV Rocephin and IV Zithromax. I attempted to call the patient's mother with the phone number listed on the chart; however, that number is not functioning and I did ask if the patient can search for the correct number and inform the [employer]. Cornelio Degroot MD
--- NOTE | 2017-07-24 23:12 | PN ---
DATE: SUBJECTIVE: The patient was seen today. She still continues to cough and she was getting her medicines. I found out from her pharmacy that she was on Complera. We will give her a prescription tomorrow as this is nonformulary in [facility] and she can get it filled up. Her relative can get it filled up. PHYSICAL EXAMINATION: VITAL SIGNS: T-max is 97.3, pulse 99, blood pressure 94/64, respirations are 20. HEENT: Head is atraumatic, normocephalic. NECK: Supple. LUNGS: Decreased breath sounds bilaterally. ABDOMEN: Soft, nontender. No guarding. No rigidity present. EXTREMITIES: She still has a lot of pain in the right foot. We will get an MRI done of the right foot to rule out any infection as she is very tender in the second toe. PSYCHIATRIC: She has psych issues also. LABORATORY DATA: At this time, labs are noted. Labs show white count is 5.5, hemoglobin 10, hematocrit 31.1, platelet count is 324 and BUN is 19, creatinine 0.7. AST, ALT are elevated a little bit. Her potassium was better today at 3.9. New orders, we will do MRI of the right leg as well to rule out any osteomyelitis on the second toe, which is also curved and bent and also to continue present antibiotics for the pneumonia and we are waiting for the CD4, CD8 count. If that was done, we will need the CD4, CD8 count and HIV viral load, so we will order that and we will follow. Izabel Roberto MD
[2017-07-25] MEDS: Albuterol 0.042% Inhal Sol (1.25 mg/3 mL) UD INH SCH ×4 (01:12→19:49)
--- NOTE | 2017-07-25 02:26 | PCM.RRT ---
<Jessica Corey - Last Filed: 07/25/17 02:32> [employer] Nurses Assessment - Situation Date: 07/25/17 [employer] Called By: RN New IV Insertion Tolerance: Good - Ventilator Settings SAO2 %: 95 I.Reason for [employer] - A) Acute Change in Patient: (Select all that apply): Acute change in heart rate less than 50 or greater than 120 Subjective: Rapid response was called at 02:10 by Jodi, the patient's nurse for SVT. Upon arrival patient says she was having substernal chest pain and could feel her heart beating fast. Vitals were as follows: BP: 92/66, P: 204, O2: 100% TYLER and EKG were ordered. Adenosine 6mg IV given. Vitals taken after adenosine were as follows: BP: 125/86, P: 82, O2:100% - Constitutional Appears: Non-toxic Additional Comments: combative - Head Head Exam: NORMAL INSPECTION - Eyes Eye Exam: EOMI, PERRL - Respiratory Exam Respiratory Exam: Clear to Ausculation Bilateral, NORMAL BREATHING PATTERN - Cardiovascular Exam Cardiovascular Exam: Tachycardia, +S1, +S2 - Neurological Exam Neurological Exam: Alert, Oriented x3 - Extremities Exam Extremities Exam: Normal Inspection Plan - Assessment of Findings&Treatment Plan 6 mg Adenosine given during rapid Continue to monitor on telemetry <Tomas Zhou - Last Filed: 07/25/17 06:32> [employer] Nurses Assessment - Vital Signs Vital Signs: Rapid Response Vital Sign Blood Pressure 92/66 Pulse Rate 206 Respiratory Rate 20 Temperature 98.2 F Oxygen Saturation 100 - Vital Signs at end of [employer] Vital Signs at end of [employer]: Rapid Response End Vital Sign Blood Pressure 115/68 Pulse Rate 86 Respiratory Rate 20 Temperature 98.3 F O2 Sat by Pulse Oximetry 100 Attending/Attestation - Attestation I have personally seen and examined this patient.: Yes I have fully participated in the care of the patient.: Yes I have reviewed all pertinent clinical information, including history, physical exam and plan: Yes Notes (Text): Primary team will be informed by nursing, may need preventive meds or EP studies.
[2017-07-25] MEDS: Enoxaparin 40 mg Syringe SC SCH (10:32)
--- NOTE | 2017-07-25 10:44 | CP.PCM.PN ---
Subjective - Date & Time of Evaluation Date of Evaluation: 07/25/17 Time of Evaluation: 10:41 - Subjective Subjective: had rapid respose her ht rate was 200 still sob cough weeke pain Objective - Vital Signs/Intake and Output Vital Signs (last 24 hours): Temp Pulse Resp BP Pulse Ox 97.8 F 79 18 94/63 L 98 07/25/17 07:00 07/25/17 07:00 07/25/17 07:00 07/25/17 07:00 07/25/17 07:00 - Medications Medications: Current Medications Acetaminophen (Tylenol 325mg Tab) 650 mg PO Q6 PRN PRN Reason: temp >100.4 or pain Last Admin: 07/25/17 10:28 Dose: 650 mg Albuterol Sulfate (Albuterol 0.042% Inhal Nicol (1.25mg/3ml) Ud) 1.25 mg INH RQ6 [facility] Last Admin: 07/25/17 07:20 Dose: 1.25 mg Diltiazem HCl (Cardizem) 30 mg PO TID [facility] Last Admin: 07/25/17 10:29 Dose: 30 mg Enoxaparin Sodium (Lovenox) 40 mg SC DAILY [facility] Last Admin: 07/25/17 10:32 Dose: Not Given Azithromycin 500 mg/ Sodium (Chloride) 250 mls @ 250 mls/hr IVPB DAILY@1700 [facility] Last Admin: 07/24/17 17:55 Dose: 250 mls/hr Ceftriaxone Sodium 1 gm/ (Sodium Chloride) 100 mls @ 100 mls/hr IVPB BID [facility] Last Admin: 07/25/17 10:29 Dose: 100 mls/hr - Labs Labs: 07/21/17 07:18 07/21/17 07:18 PT 13.2 SECONDS (9.7-12.2) H 07/20/17 15:07 INR 1.2 07/20/17 15:07 APTT 32 SECONDS (21-34) 07/20/17 15:07 - Constitutional Appears: In Acute Distress - Head Exam Head Exam: NORMAL INSPECTION - Eye Exam Eye Exam: Normal appearance - ENT Exam ENT Exam: Mucous Membranes Moist - Neck Exam Neck Exam: Full ROM - Respiratory Exam Respiratory Exam: Decreased Breath Sounds, Rales - Cardiovascular Exam Cardiovascular Exam: Tachycardia - GI/Abdominal Exam GI & Abdominal Exam: Normal Bowel Sounds - Rectal Exam Rectal Exam: Deferred - Extremities Exam Extremities Exam: Normal Inspection - Back Exam Back Exam: NORMAL INSPECTION - Neurological Exam Neurological Exam: Oriented x3 - Psychiatric Exam Psychiatric exam: Normal Affect - Skin Skin Exam: Warm Assessment and Plan - Assessment and Plan (Free Text) Assessment: bilateral pnumonia aneamia tachycardia hiv Plan: seen by pulmonary consult cont as per ordees
--- NOTE | 2017-07-25 15:13 | CT ---
CT chest without IV contrast Indication: Pneumonia Technique: Contiguous axial images were obtained through the chest without intravenous contrast enhancement. Sagittal and coronal reconstructions were generated and reviewed. This CT exam was performed using 1 or more of the falling dose reduction techniques: Automated exposure control, adjustment of the MAA and/or kV according to patient size, and/or use of iterative reconstruction technique. Radiation dose (DLP): 310.90 MGy-cm. Comparison: Chest x-ray performed 07/20/17 Findings: Visualized portions of the inferior thyroid gland appear unremarkable. The unenhanced mediastinal and hilar vascular structures appear grossly unremarkable. The heart appears within normal limits of size. Right middle lobe and left lower lobe consolidations consistent with pneumonia. Correlate clinically. No pleural effusion. No pneumothorax. 3 mm right upper lobe calcified granuloma. Limited visualization of the noncontrast upper abdomen demonstrates evidence of cholelithiasis. Ingested debris within and visualized portions of the stomach. No acute osseous abnormality is detected. Impression: Right middle lobe and left lower lobe consolidations consistent with pneumonia. Correlate clinically. Recommend follow-up upon completion of treatment of acute symptoms in order to assess for complete resolution.
--- NOTE | 2017-07-25 16:00 | PN ---
DATE: FOLLOWUP SUBJECTIVE: The patient developed some left ventricular tachycardia early this morning at the rate of total of 102, which was terminated by IV adenosine. The patient refused to take her oral Cardizem the day before. She is still uncooperative and refuses to keep telemetry most of the time. PHYSICAL EXAMINATION: VITAL SIGNS: Blood pressure 94/63, heart rate 79, temperature 97.8, respirations 18. HEENT: Normocephalic. CHEST: Clear. HEART: S1 and S2 regular. EXTREMITIES: No edema. LABORATORY DATA: Chest CT scan was performed, the report is still pending. Echocardiographic study revealed normal ejection fraction. Otcn-wo-useqikts aortic insufficiency. Iaiu-tb-rghvvqiu pulmonary hypertension. ASSESSMENT: 1. Paroxysmal reentrant supraventricular tachycardia. 2. Schizophrenia. 3. Lqzt-zg-ktazamqt aortic insufficiency. 4. Gtzu-bh-thvherir pulmonary hypertension. RECOMMENDATIONS: Continue current albuterol inhaler, continue IV Zithromax 500 mg daily. I did restart Cardizem at 300 mg p.o. t.i.d. Continue IV Rocephin 1 g daily, subcutaneous Lovenox is 40 mg once a day. Cornelio Degroot MD
[2017-07-25] MEDS: Azithromycin 500 MG in Sodium Chloride 0.9% 250 ML IVPB SCH (17:40)
[2017-07-26] MEDS: Albuterol 0.042% Inhal Sol (1.25 mg/3 mL) UD INH SCH ×4 (01:10→19:26)
--- NOTE | 2017-07-26 07:16 | CON ---
DATE: 07/25/2017 HISTORY OF PRESENT ILLNESS: A 56-year-old female, active HIV, schizophrenia, chief complaint weakness, fatigue, tiredness, supraventricular tachycardia. Patient came to the ER, advised admission. Patient was admitted to the ICU. Patient was transferred to the floor. Patient is a smoker. PHYSICAL EXAMINATION: GENERAL: Patient is awake, alert, oriented. VITAL SIGNS: Temperature 98, pulse 70. HEENT: Within normal limits. NECK: Supple. CHEST: Symmetrical with diffuse air entry. HEART: Regular. ABDOMEN: Soft. EXTREMITIES: No edema. IMPRESSION: The patient suffers from pneumonia, began IV antibiotics. CT of the chest, bronchodilators. Dari García MD
[2017-07-26] MEDS: COMPLERA PO SCH (09:34)
[2017-07-26] MEDS: Enoxaparin 40 mg Syringe SC SCH (09:34)
[2017-07-26 10:48] LABS: % CD3 (MATURE T CELL) 78 Percent (57-85)
--- NOTE | 2017-07-26 11:27 | CP.PCM.PN ---
Subjective - Date & Time of Evaluation Date of Evaluation: 07/26/17 Time of Evaluation: 11:23 - Subjective Subjective: less cough less pain less sob Objective - Vital Signs/Intake and Output Vital Signs (last 24 hours): Temp Pulse Resp BP Pulse Ox 98 F 92 H 20 96/64 L 100 07/26/17 07:00 07/26/17 07:00 07/26/17 07:00 07/26/17 07:00 07/26/17 07:00 - Medications Medications: Current Medications Acetaminophen (Tylenol 325mg Tab) 650 mg PO Q6 PRN PRN Reason: temp >100.4 or pain Last Admin: 07/25/17 10:28 Dose: 650 mg Albuterol Sulfate (Albuterol 0.042% Inhal Nicol (1.25mg/3ml) Ud) 1.25 mg INH RQ6 [facility] Last Admin: 07/26/17 07:15 Dose: 1.25 mg Diltiazem HCl (Cardizem) 30 mg PO TID [facility] Last Admin: 07/26/17 09:34 Dose: 30 mg Enoxaparin Sodium (Lovenox) 40 mg SC DAILY [facility] Last Admin: 07/26/17 09:34 Dose: 40 mg Home Med (Patient's Own Medication) 1 tab PO DAILY [facility] Last Admin: 07/26/17 09:34 Dose: 1 tab Azithromycin 500 mg/ Sodium (Chloride) 250 mls @ 250 mls/hr IVPB DAILY@1700 [facility] Last Admin: 07/25/17 17:40 Dose: 250 mls/hr Ceftriaxone Sodium 1 gm/ (Sodium Chloride) 100 mls @ 100 mls/hr IVPB BID [facility] Last Admin: 07/26/17 09:34 Dose: 100 mls/hr - Labs Labs: 07/21/17 07:18 07/21/17 07:18 PT 13.2 SECONDS (9.7-12.2) H 07/20/17 15:07 INR 1.2 07/20/17 15:07 APTT 32 SECONDS (21-34) 07/20/17 15:07 - Constitutional Appears: Non-toxic - Head Exam Head Exam: NORMAL INSPECTION - ENT Exam ENT Exam: Normal Exam - Neck Exam Neck Exam: Normal Inspection - Respiratory Exam Respiratory Exam: NORMAL BREATHING PATTERN - Cardiovascular Exam Cardiovascular Exam: REGULAR RHYTHM - GI/Abdominal Exam GI & Abdominal Exam: Normal Bowel Sounds - Rectal Exam Rectal Exam: NORMAL INSPECTION - Exam External exam: NORMAL EXTERNAL EXAM - Back Exam Back Exam: NORMAL INSPECTION - Neurological Exam Neurological Exam: Normal Gait - Psychiatric Exam Psychiatric exam: Normal Affect - Skin Skin Exam: Pallor Assessment and Plan - Assessment and Plan (Free Text) Assessment: s/p tachy arrythmia bilateral pnumonia improvind hiv aneamia hyperglyceamia cont current treatment and my d/c soon soscial servisce consult
[2017-07-26] MEDS ORDERED: diltiaZEM 180 mg/24 Hours CD Cap PO SCH (16:45)
[2017-07-26] MEDS: Azithromycin 500 MG in Sodium Chloride 0.9% 250 ML IVPB SCH (17:00)
--- NOTE | 2017-07-26 21:52 | PN ---
SUBJECTIVE: The patient denies any chest pain or shortness of breath. No reported supraventricular tachycardia. PHYSICAL EXAMINATION: VITAL SIGNS: Blood pressure 96/64, heart rate 92, temperature 98, respirations 20. HEENT: Normocephalic. CHEST: Clear. HEART: S1 and S2 regular. EXTREMITIES: No edema. LABORATORY DATA: Chest CT scan, right middle lobe and lower lobe consolidation consistent with pneumonia. ASSESSMENT AND PLAN: 1. Paroxysmal reentrant supraventricular tachycardia. 2. Right middle and lower lobe pneumonia. 3. Schizophrenia. 4. Human immunodeficiency virus positive. RECOMMENDATIONS: Continue current IV Zithromax and IV Rocephin. Continue albuterol inhaler. Continue subcutaneous Lovenox mg once a day. Change Cardizem to CD at 180 because of the patient's poor cooperation with all medications while on inpatient. The patient is still not able to provide the phone number of her mother. Cornelio Degroot MD
[2017-07-27] MEDS: Albuterol 0.042% Inhal Sol (1.25 mg/3 mL) UD INH SCH ×5 (01:10→19:27)
[2017-07-27] MEDS: Enoxaparin 40 mg Syringe SC SCH (10:27)
[2017-07-27] MEDS: COMPLERA PO SCH (10:38)
[2017-07-27] MEDS ORDERED: diltiaZEM 120 mg/24 Hours CD Cap PO SCH (10:51)
--- NOTE | 2017-07-27 16:53 | CP.PCM.PN ---
Subjective - Date & Time of Evaluation Date of Evaluation: 07/27/17 Time of Evaluation: 16:50 - Subjective Subjective: no cough less sob no tachycardia oob ambulatory foot pain toe deformity Objective - Vital Signs/Intake and Output Vital Signs (last 24 hours): Temp Pulse Resp BP Pulse Ox 98.0 F 81 20 95/57 L 99 07/27/17 07:35 07/27/17 10:59 07/27/17 10:25 07/27/17 10:59 07/27/17 10:25 Intake and Output: 07/27/17 07/27/17 06:59 18:59 Intake Total 850 900 Output Total 1100 Balance 850 -200 - Medications Medications: Current Medications Acetaminophen (Tylenol 325mg Tab) 650 mg PO Q6 PRN PRN Reason: temp >100.4 or pain Last Admin: 07/25/17 10:28 Dose: 650 mg Albuterol Sulfate (Albuterol 0.042% Inhal Nicol (1.25mg/3ml) Ud) 1.25 mg INH RQ6 [facility] Last Admin: 07/27/17 13:33 Dose: 1.25 mg Diltiazem HCl (Cardizem Cd) 120 mg PO DAILY [facility] Last Admin: 07/27/17 10:59 Dose: 120 mg Enoxaparin Sodium (Lovenox) 40 mg SC DAILY [facility] Last Admin: 07/27/17 10:27 Dose: 40 mg Home Med (Patient's Own Medication) 1 tab PO DAILY [facility] Last Admin: 07/27/17 10:38 Dose: 1 tab Azithromycin 500 mg/ Sodium (Chloride) 250 mls @ 250 mls/hr IVPB DAILY@1700 [facility] Last Admin: 07/26/17 17:00 Dose: 250 mls/hr Ceftriaxone Sodium 1 gm/ (Sodium Chloride) 100 mls @ 100 mls/hr IVPB BID [facility] Last Admin: 07/27/17 10:27 Dose: 100 mls/hr - Labs Labs: 07/21/17 07:18 07/21/17 07:18 PT 13.2 SECONDS (9.7-12.2) H 07/20/17 15:07 INR 1.2 07/20/17 15:07 APTT 32 SECONDS (21-34) 07/20/17 15:07 - Constitutional Appears: Non-toxic - Head Exam Head Exam: NORMAL INSPECTION - Eye Exam Eye Exam: Normal appearance Pupil Exam: NORMAL ACCOMODATION - ENT Exam ENT Exam: Mucous Membranes Moist - Neck Exam Neck Exam: Full ROM - Respiratory Exam Respiratory Exam: Clear to Ausculation Bilateral - Cardiovascular Exam Cardiovascular Exam: REGULAR RHYTHM - GI/Abdominal Exam GI & Abdominal Exam: Normal Bowel Sounds - Rectal Exam Rectal Exam: NORMAL INSPECTION - Exam Exam: NORMAL INSPECTION External exam: NORMAL EXTERNAL EXAM - Extremities Exam Extremities Exam: Normal Inspection Additional comments: toe deformity - Back Exam Back Exam: NORMAL INSPECTION - Neurological Exam Neurological Exam: Alert, Normal Gait, Oriented x3 - Psychiatric Exam Psychiatric exam: Normal Affect - Skin Skin Exam: Normal Color Assessment and Plan - Assessment and Plan (Free Text) Assessment: s/p bilateral pnumonia hiv hack pain toe deformiy Plan: as per orders
--- NOTE | 2017-07-27 17:44 | PN ---
DATE: SUBJECTIVE: There is no reported supraventricular tachycardia. PHYSICAL EXAMINATION VITAL SIGNS: Blood pressure 95/57, heart rate 81, temperature 98, respirations 20. HEENT: Normocephalic. NECK: No JVD. CHEST: Clear. HEART: S1 and S2 regular. EXTREMITIES: No edema. ASSESSMENT: 1. Paroxysmal reentrant supraventricular tachycardia. 2. Human immunodeficiency virus positive. 3. Schizophrenia. 4. Homelessness. 5. [id number] pulmonary hypertension. RECOMMENDATIONS: Continue albuterol inhaler. Continue IV Zithromax at 500 mg daily. I did reduce the Cardizem CD 120 mg once a day. Continue subcutaneous Lovenox 20 mg once a day. I had a lengthy discussion with the nurse case manager. The patient before discharge needs clearance for competence by psychiatrist. Otherwise, the patient may require long-term placement in view of her psychological and cardiac problems. Cornelio Degroot MD
[2017-07-27] MEDS: Azithromycin 500 MG in Sodium Chloride 0.9% 250 ML IVPB SCH (18:00)
[2017-07-27] MEDS ORDERED: Calamine-Zinc Oxide Lotion (120 ml) TOP SCH (19:43)
[2017-07-27] MEDS ORDERED: Calamine-Zinc Oxide Lotion (120 ml) TOP PRN (20:00)
[2017-07-28] MEDS: Albuterol 0.042% Inhal Sol (1.25 mg/3 mL) UD INH SCH ×4 (01:30→19:53)
[2017-07-28] MEDS: COMPLERA PO SCH (09:48)
[2017-07-28] MEDS: Enoxaparin 40 mg Syringe SC SCH (09:48)
--- NOTE | 2017-07-28 12:54 | CP.PCM.PN ---
Subjective - Date & Time of Evaluation Date of Evaluation: 07/28/17 Time of Evaluation: 12:51 - Subjective Subjective: has chest pain today back pain sorness and deformity toes Objective - Vital Signs/Intake and Output Vital Signs (last 24 hours): Temp Pulse Resp BP Pulse Ox 98.3 F 69 20 103/62 97 07/28/17 07:00 07/28/17 07:00 07/28/17 07:00 07/28/17 07:00 07/28/17 07:00 - Medications Medications: Current Medications Acetaminophen (Tylenol 325mg Tab) 650 mg PO Q6 PRN PRN Reason: temp >100.4 or pain Last Admin: 07/28/17 00:56 Dose: 650 mg Albuterol Sulfate (Albuterol 0.042% Inhal Nicol (1.25mg/3ml) Ud) 1.25 mg INH RQ6 [facility] Last Admin: 07/28/17 07:16 Dose: 1.25 mg Calamine (Calamine Lotion) 1 ml TOP Q8 PRN Last Admin: 07/27/17 20:37 Dose: 1 ml Home Med (Patient's Own Medication) 1 tab PO DAILY [facility] Last Admin: 07/28/17 09:48 Dose: 1 tab Azithromycin 500 mg/ Sodium (Chloride) 250 mls @ 250 mls/hr IVPB DAILY@1700 [facility] Last Admin: 07/27/17 18:00 Dose: 250 mls/hr Ceftriaxone Sodium 1 gm/ (Sodium Chloride) 100 mls @ 100 mls/hr IVPB BID [facility] Last Admin: 07/28/17 09:47 Dose: 100 mls/hr - Labs Labs: 07/21/17 07:18 07/21/17 07:18 PT 13.2 SECONDS (9.7-12.2) H 07/20/17 15:07 INR 1.2 07/20/17 15:07 APTT 32 SECONDS (21-34) 07/20/17 15:07 - Constitutional Appears: Non-toxic - Head Exam Head Exam: NORMAL INSPECTION - Eye Exam Eye Exam: Periorbital tenderness - ENT Exam ENT Exam: Normal Exam - Respiratory Exam Respiratory Exam: Decreased Breath Sounds - Cardiovascular Exam Cardiovascular Exam: REGULAR RHYTHM - GI/Abdominal Exam GI & Abdominal Exam: Normal Bowel Sounds - Rectal Exam Rectal Exam: NORMAL INSPECTION - Exam Speculum exam: NORMAL SPECULUM EXAM - Extremities Exam Extremities Exam: Normal Capillary Refill Additional comments: small ulcer and toe defprmity and painful - Neurological Exam Neurological Exam: Normal Gait - Psychiatric Exam Psychiatric exam: Normal Affect - Skin Skin Exam: Normal Color Assessment and Plan - Assessment and Plan (Free Text) Assessment: s/p bilateral ac pnumonia chf back pain toe ulcer and debormity hiv infection Plan: as per orders
[2017-07-28] MEDS ORDERED: Gadodiamide 287 MG/ML VIAL (15ML) IV ONE (14:35)
--- NOTE | 2017-07-28 15:27 | CP.PCM.CON ---
History of Present Illness - History of Present Illness History of Present Illness: Podiatry Consult note for Dr. Lyn 56 year old female with PMHx including HIV, schizophrenia was seen regarding right 2nd digit pain. She states that her toe has been bothering her for years but has gotten worse in the past 8 months. 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 She states that she is currently homeless and walks a lot on her feet. She states that when she wears 3 pairs of socks her feet hurt the most. Admits to wearing sneakers. States that tylenol helps her pain. She currently denies any n/v/f/sob/cp but admits to some chills Past Patient History - Infectious Disease Hx of Infectious Diseases: None - Past Social History Smoking Status: Heavy Smoker > 10 Cigarettes Daily - CARDIAC Hx Cardiac Disorders: No Hx Hypertension: No - PULMONARY Hx Respiratory Disorders: No Hx Tuberculosis: No - NEUROLOGICAL Hx Neurological Disorder: No Hx Seizures: No - HEENT Hx HEENT Problems: No - RENAL Hx Chronic Kidney Disease: No - ENDOCRINE/METABOLIC Hx Endocrine Disorders: No - HEMATOLOGICAL/ONCOLOGICAL Hx Blood Disorders: Yes Hx Human Immunodeficiency Virus (HIV): Yes - INTEGUMENTARY Hx Dermatological Problems: No - MUSCULOSKELETAL/RHEUMATOLOGICAL Hx Musculoskeletal Disorders: No Hx Falls: No - GASTROINTESTINAL Hx Gastrointestinal Disorders: No - GENITOURINARY/GYNECOLOGICAL Hx Genitourinary Disorders: No Hx Sexually Transmitted Disorders: No - PSYCHIATRIC Hx Anxiety: Yes Hx Bipolar Disorder: Yes Hx Paranoia: Yes Hx Schizophrenia: Yes Hx Substance Use: Yes (Per pt) - SURGICAL HISTORY Hx Surgeries: No - ANESTHESIA Hx Anesthesia: No Meds Allergies/Adverse Reactions: Allergies Allergy/AdvReac Type Severity Reaction Status Date / Time ibuprofen Allergy ANAPHYLAXIS Verified 07/20/17 14:48 - Medications Medications: Current Medications Acetaminophen (Tylenol 325mg Tab) 650 mg PO Q6 PRN PRN Reason: temp >100.4 or pain Last Admin: 07/28/17 00:56 Dose: 650 mg Albuterol Sulfate (Albuterol 0.042% Inhal Nicol (1.25mg/3ml) Ud) 1.25 mg INH RQ6 [facility] Last Admin: 07/28/17 13:38 Dose: 1.25 mg Calamine (Calamine Lotion) 1 ml TOP Q8 PRN Last Admin: 07/27/17 20:37 Dose: 1 ml Digoxin (Lanoxin) 0.25 mg PO DAILY@1800 [facility] Home Med (Patient's Own Medication) 1 tab PO DAILY [facility] Last Admin: 07/28/17 09:48 Dose: 1 tab Azithromycin 500 mg/ Sodium (Chloride) 250 mls @ 250 mls/hr IVPB DAILY@1700 [facility] Last Admin: 07/27/17 18:00 Dose: 250 mls/hr Ceftriaxone Sodium 1 gm/ (Sodium Chloride) 100 mls @ 100 mls/hr IVPB BID [facility] Last Admin: 07/28/17 09:47 Dose: 100 mls/hr Physical Exam - Constitutional Appears: Well, Non-toxic, No Acute Distress - Extremities Exam Additional comments: lower extremity focused exam: Vasc:DP pulses palpable 2/4 b/l, PT pulses palpble 1/4 b/l. CFT < 3 seconds to all digits b/l. Skin temperature warm to warm from proximal to distal b/l. Neuro: Gross sensation intact b/l. Derm: Skin is dry, nails are trimmed to a hygenic length 1-5 L, 2-5 R. No open lesions noted Ortho: Right foot 2nd digit is contracted. Amputation noted to right hallux. Tenderness on palpation to all digits and plantar aspect of metatarsal heads 1- 5 on the right. - Neurological Exam Neurological exam: Alert, Oriented x3 - Psychiatric Exam Psychiatric exam: Normal Affect, Normal Mood Results - Vital Signs Recent Vital Signs: Last Vital Signs Temp 98.3 F 07/28/17 07:00 Pulse 69 07/28/17 07:00 Resp 20 07/28/17 07:00 BP 103/62 07/28/17 07:00 Pulse Ox 97 07/28/17 07:00 - Labs Result Diagrams: 07/21/17 07:18 07/21/17 07:18 Assessment & Plan - Assessment and Plan (Free Text) Assessment: 56 year old female with right foot 2nd contracted digit and diffuse pain to digits Plan: patient examined and evaluated discussed in detail with attending, Dr. Lyn lab, chart, vitals reviewed radiographs reviewed: impressions:interval amputation of right 1st digit, otherwise unremarkable MRI pending cont IV abx per ID podiatry will continue to follow patient while in house
--- NOTE | 2017-07-28 15:47 | PN ---
DATE: SUBJECTIVE: The patient denies chest pain. No reported SVT. PHYSICAL EXAMINATION VITAL SIGNS: Blood pressure , heart rate 69, temperature 98.3 and respirations 20. HEENT: Normocephalic. CHEST: Clear. HEART: S1 and S2 regular. EXTREMITIES: No edema. ASSESSMENT: 1. Paroxysmal reentrant supraventricular tachycardia. 2. Human immunodeficiency virus positive. 3. Homelessness. RECOMMENDATIONS: Continue IV Zithromax and IV Rocephin. Cardizem was discontinued. I will start digoxin 0.25 mg orally daily. Cornelio Degroot MD
--- NOTE | 2017-07-28 16:34 | MRI ---
PROCEDURE: MRI of the right foot without and with IV contrast administration HISTORY: right foot 2nd toe r/o fracture r/o osteomyelitis COMPARISON: Comparison is made to the previous x-ray of the right foot dated 07/20/2017. No prior MRI available for comparison. TECHNIQUE: Axial coronal and sagittal MRI images of the right foot were obtained before and after IV contrast administration. 12 mL of Omniscan was injected intravenously. FINDINGS: The patient is status post amputation of the 1st toe through the mid to distal proximal phalanx of the big toe. No evidence of significant bone marrow edema at the proximal phalanx of the big toe. No evidence of bony destruction or significant bone marrow edema at the 2nd 3rd 4th and 5th toes. There are subluxation at the interphalangeal joint of the toes more prominent at the 2nd and 3rd toes. Mild heterogeneous increased signal in the soft tissue around the 1st and 2nd toe may represent inflammatory changes. There is no evidence of drainable fluid collection. Subcutaneous inflammatory changes and trace of fluid noted at the lateral aspect of the proximal Navjot toe adjacent to the site of the amputation. The possibility of infectious process is not totally excluded. IMPRESSION: No evidence of cortical erosion or bone marrow edema at the 2nd toe to suggest active osteomyelitis.Heterogeneous increase signal and enhancement noted in the soft tissue of the 1st and 2nd toe more prominent at the lateral and distal portion of the 1st toe adjacent to the site of the previous amputation through the proximal phalanx of the big toe. The possibility of infection or inflammatory process should be excluded. No definite evidence of osteomyelitis at the right foot in this exam.
[2017-07-28] MEDS: Azithromycin 500 MG in Sodium Chloride 0.9% 250 ML IVPB SCH (18:21)
[2017-07-28] MEDS: Digoxin 250 mcg (0.25 mg) Tab PO SCH (18:21)
[2017-07-29] MEDS: Albuterol 0.042% Inhal Sol (1.25 mg/3 mL) UD INH SCH ×4 (02:08→20:27)
[2017-07-29] MEDS: COMPLERA PO SCH (10:28)
--- NOTE | 2017-07-29 10:42 | CP.PCM.PN ---
Subjective - Date & Time of Evaluation Date of Evaluation: 07/29/17 Time of Evaluation: 10:35 - Subjective Subjective: Podiatry Progress note for Dr. Lyn 56 year old female with PMHx including HIV, schizophrenia seen at bedside. Patient is seen resting comfortably in bed, in NAD, and AAOx3. She denies any overnight acute events. Patient reports that her pain today has gotten better. She denies n/v/sob/cp/chills/f or d. Objective - Vital Signs/Intake and Output Vital Signs (last 24 hours): Temp Pulse Resp BP Pulse Ox 97.6 F 83 20 97/56 L 100 07/29/17 08:50 07/29/17 08:50 07/29/17 08:50 07/29/17 08:50 07/29/17 08:50 Intake and Output: 07/29/17 07/29/17 06:59 18:59 Intake Total 780 Balance 780 - Medications Medications: Current Medications Acetaminophen (Tylenol 325mg Tab) 650 mg PO Q6 PRN PRN Reason: temp >100.4 or pain Last Admin: 07/28/17 18:29 Dose: 650 mg Albuterol Sulfate (Albuterol 0.042% Inhal Nicol (1.25mg/3ml) Ud) 1.25 mg INH RQ6 [facility] Last Admin: 07/29/17 07:24 Dose: 1.25 mg Calamine (Calamine Lotion) 1 ml TOP Q8 PRN Last Admin: 07/27/17 20:37 Dose: 1 ml Digoxin (Lanoxin) 0.25 mg PO DAILY@1800 [facility] Last Admin: 07/28/17 18:21 Dose: 0.25 mg Home Med (Patient's Own Medication) 1 tab PO DAILY [facility] Last Admin: 07/29/17 10:28 Dose: 1 tab Azithromycin 500 mg/ Sodium (Chloride) 250 mls @ 250 mls/hr IVPB DAILY@1700 [facility] Last Admin: 07/28/17 18:21 Dose: 250 mls/hr Ceftriaxone Sodium 1 gm/ (Sodium Chloride) 100 mls @ 100 mls/hr IVPB BID [facility] Last Admin: 07/29/17 10:29 Dose: 100 mls/hr - Labs Labs: 07/21/17 07:18 07/21/17 07:18 PT 13.2 SECONDS (9.7-12.2) H 07/20/17 15:07 INR 1.2 07/20/17 15:07 APTT 32 SECONDS (21-34) 07/20/17 15:07 - Constitutional Appears: Well, Non-toxic, No Acute Distress - Extremities Exam Additional comments: Lower extremity focused exam: Vasc:DP pulses palpable 2/4 b/l, PT pulses palpble 1/4 b/l. CFT < 3 seconds to all digits b/l. Skin temperature warm to warm from proximal to distal b/l. Neuro: Gross sensation intact b/l. Derm: Skin is dry, nails are trimmed to a hygenic length 1-5 L, 2-5 R. No open lesions noted Ortho: Right foot 2nd digit is contracted. Amputation noted to right hallux. Tenderness on palpation to all digits and plantar aspect of metatarsal heads 1- 5 on the right.l Assessment and Plan - Assessment and Plan (Free Text) Assessment: 56 year old female with right foot 2nd contracted digit and diffuse pain to digits Plan: Patient examined and evaluated at bedside Discussed in detail with attending, Dr. Lyn Lab, chart, vitals reviewed X-ray reviewed: impressions:interval amputation of right 1st digit, otherwise unremarkable MRI results- no OM, no infection/inflammatory process cont IV abx per ID podiatry will continue to follow patient while in house
--- NOTE | 2017-07-29 11:35 | CP.PCM.PN ---
Subjective - Date & Time of Evaluation Date of Evaluation: 07/29/17 Time of Evaluation: 11:32 - Subjective Subjective: still has cough chest pain pain toes Objective - Vital Signs/Intake and Output Vital Signs (last 24 hours): Temp Pulse Resp BP Pulse Ox 97.6 F 83 20 97/56 L 100 07/29/17 08:50 07/29/17 08:50 07/29/17 08:50 07/29/17 08:50 07/29/17 08:50 Intake and Output: 07/29/17 07/29/17 06:59 18:59 Intake Total 780 Balance 780 - Medications Medications: Current Medications Acetaminophen (Tylenol 325mg Tab) 650 mg PO Q6 PRN PRN Reason: temp >100.4 or pain Last Admin: 07/28/17 18:29 Dose: 650 mg Albuterol Sulfate (Albuterol 0.042% Inhal Nicol (1.25mg/3ml) Ud) 1.25 mg INH RQ6 [facility] Last Admin: 07/29/17 07:24 Dose: 1.25 mg Calamine (Calamine Lotion) 1 ml TOP Q8 PRN Last Admin: 07/27/17 20:37 Dose: 1 ml Digoxin (Lanoxin) 0.25 mg PO DAILY@1800 [facility] Last Admin: 07/28/17 18:21 Dose: 0.25 mg Home Med (Patient's Own Medication) 1 tab PO DAILY [facility] Last Admin: 07/29/17 10:28 Dose: 1 tab Azithromycin 500 mg/ Sodium (Chloride) 250 mls @ 250 mls/hr IVPB DAILY@1700 [facility] Last Admin: 07/28/17 18:21 Dose: 250 mls/hr Ceftriaxone Sodium 1 gm/ (Sodium Chloride) 100 mls @ 100 mls/hr IVPB BID [facility] Last Admin: 07/29/17 10:29 Dose: 100 mls/hr - Labs Labs: 07/21/17 07:18 07/21/17 07:18 PT 13.2 SECONDS (9.7-12.2) H 07/20/17 15:07 INR 1.2 07/20/17 15:07 APTT 32 SECONDS (21-34) 07/20/17 15:07 - Constitutional Appears: Non-toxic - Head Exam Head Exam: NORMAL INSPECTION - Eye Exam Eye Exam: Normal appearance Pupil Exam: NORMAL ACCOMODATION - ENT Exam ENT Exam: Normal Exam - Neck Exam Neck Exam: Normal Inspection - Respiratory Exam Respiratory Exam: Decreased Breath Sounds, Rales - Cardiovascular Exam Cardiovascular Exam: REGULAR RHYTHM - GI/Abdominal Exam GI & Abdominal Exam: Soft, Tenderness - Rectal Exam Rectal Exam: NORMAL INSPECTION - Extremities Exam Additional comments: toe 2 and 3 swalen painful - Back Exam Back Exam: CVA tenderness (L) - Neurological Exam Neurological Exam: Normal Gait - Psychiatric Exam Psychiatric exam: Normal Affect - Skin Skin Exam: Normal Color, Pallor Assessment and Plan - Assessment and Plan (Free Text) Assessment: pnumonia persistant midle and uper lobe inflamation toes hiv back pain abd pain Plan: cont treatment
[2017-07-29] MEDS: Tmp-Smz 800 mg-160 mg DS Tab PO SCH ×2 (12:40→21:36)
--- NOTE | 2017-07-29 16:03 | PN ---
DATE: SUBJECTIVE: No reported supraventricular arrhythmia. PHYSICAL EXAMINATION VITAL SIGNS: Blood pressure 97/56, heart rate 83, temperature 97.6, respiration 20. HEENT: Normocephalic. CHEST: Bilateral rhonchi. HEART: S1 and S2 regular. EXTREMITIES: No edema. ASSESSMENT: 1. Paroxysmal reentrant supraventricular tachycardia. 2. Schizophrenia. RECOMMENDATIONS: I did review the lower extremity MRI, which revealed no evidence of cortical erosion or bone marrow edema at the second toe to suggest osteomyelitis. and enhancement noted in the soft tissue of the first and second toe, more prominent at the lateral and distal portion of the first toe adjacent to the site of the previous amputation through the proximal phalanx of the big toe. The possibility of infection or inflammation process should be excluded. Continue current IV Zithromax and IV Rocephin. Continue digoxin 0.25 mg daily. I discussed the case with the Psychiatrist, Dr. Quintero, who will evaluated the patient at a later time. In the meantime, I will obtain serum digoxin level in the a.m. Cornelio Degroot MD
[2017-07-29] MEDS: Digoxin 250 mcg (0.25 mg) Tab PO SCH (17:21)
[2017-07-29] MEDS: Azithromycin 500 MG in Sodium Chloride 0.9% 250 ML IVPB SCH (17:22)
[2017-07-30] MEDS: Albuterol 0.042% Inhal Sol (1.25 mg/3 mL) UD INH SCH ×4 (01:49→19:34)
--- NOTE | 2017-07-30 09:42 | CARD ---
APPROVED REPORT EKG Measurement Heart [id number] <Conclusion> Normal sinus rhythm Possible Left atrial enlargement Borderline ECG
[2017-07-30] MEDS: COMPLERA PO SCH (09:53)
[2017-07-30] MEDS: Tmp-Smz 800 mg-160 mg DS Tab PO SCH (09:53)
--- NOTE | 2017-07-30 11:57 | PN ---
DATE: FOLLOWUP SUBJECTIVE: No reported SVT. PHYSICAL EXAMINATION: VITAL SIGNS: Blood pressure 99/63, heart rate 61, temperature 98, respirations 20. HEENT: Normocephalic. NECK: No JVD. CHEST: Minimal rhonchi. HEART: S1 and S2 regular. EXTREMITIES: No edema. ASSESSMENT: 1. Paroxysmal reentrant supraventricular tachycardia. 2. Schizophrenia. 3. Mild to moderate pulmonary hypertension. 4. Mild to moderate aortic insufficiency. 5. Diastolic left ventricular dysfunction. 6. Human immunodeficiency virus positive. RECOMMENDATIONS: Continue albuterol inhaler. Continue IV Zithromax and IV Rocephin. Continue Bactrim at 1 tablet twice a day. Digoxin 0.25 mg daily. Cornelio Degroot MD
--- NOTE | 2017-07-30 12:29 | CP.PCM.PN ---
Subjective - Date & Time of Evaluation Date of Evaluation: 07/30/17 Time of Evaluation: 12:26 - Subjective Subjective: c/o pain foot less cough less sob Objective - Vital Signs/Intake and Output Vital Signs (last 24 hours): Temp Pulse Resp BP Pulse Ox 98 F 61 20 99/63 L 0 L 07/30/17 08:00 07/30/17 08:00 07/30/17 08:00 07/30/17 08:00 07/30/17 08:00 - Medications Medications: Current Medications Acetaminophen (Tylenol 325mg Tab) 650 mg PO Q6 PRN PRN Reason: temp >100.4 or pain Last Admin: 07/29/17 12:40 Dose: 650 mg Albuterol Sulfate (Albuterol 0.042% Inhal Nicol (1.25mg/3ml) Ud) 1.25 mg INH RQ6 [facility] Last Admin: 07/30/17 07:21 Dose: 1.25 mg Calamine (Calamine Lotion) 1 ml TOP Q8 PRN Last Admin: 07/27/17 20:37 Dose: 1 ml Digoxin (Lanoxin) 0.25 mg PO DAILY@1800 [facility] Last Admin: 07/29/17 17:21 Dose: 0.25 mg Home Med (Patient's Own Medication) 1 tab PO DAILY [facility] Last Admin: 07/30/17 09:53 Dose: 1 tab Azithromycin 500 mg/ Sodium (Chloride) 250 mls @ 250 mls/hr IVPB DAILY@1700 [facility] Last Admin: 07/29/17 17:22 Dose: 250 mls/hr Ceftriaxone Sodium 1 gm/ (Dextrose) 50 mls @ 100 mls/hr IVPB Q12 [facility] Last Admin: 07/30/17 09:55 Dose: 100 mls/hr Ibuprofen (Motrin Tab) 400 mg PO TIDPC [facility] Last Admin: 07/30/17 10:00 Dose: 400 mg Trimethoprim/Sulfamethoxazole (Bactrim Ds Tab) 1 tab PO Q12 [facility] Last Admin: 07/30/17 09:53 Dose: 1 tab - Labs Labs: 07/21/17 07:18 07/21/17 07:18 PT 13.2 SECONDS (9.7-12.2) H 07/20/17 15:07 INR 1.2 07/20/17 15:07 APTT 32 SECONDS (21-34) 07/20/17 15:07 - Constitutional Appears: Non-toxic - Head Exam Head Exam: NORMAL INSPECTION - Eye Exam Eye Exam: Normal appearance Pupil Exam: NORMAL ACCOMODATION - ENT Exam ENT Exam: Mucous Membranes Moist - Respiratory Exam Respiratory Exam: Decreased Breath Sounds, Rales - Cardiovascular Exam Cardiovascular Exam: REGULAR RHYTHM - GI/Abdominal Exam GI & Abdominal Exam: Normal Bowel Sounds - Rectal Exam Rectal Exam: NORMAL INSPECTION - Extremities Exam Extremities Exam: Full ROM Additional comments: toe deformity ulcer and pain - Psychiatric Exam Psychiatric exam: Normal Affect - Skin Skin Exam: Pallor Assessment and Plan - Assessment and Plan (Free Text) Assessment: pnumonia hiv toe inflamation aneamia Plan: cont treatmenrt
[2017-07-30] MEDS: Digoxin 250 mcg (0.25 mg) Tab PO SCH (18:57)
[2017-07-30 18:59] VITALS: PULSE 90
[2017-07-30] MEDS: Azithromycin 500 MG in Sodium Chloride 0.9% 250 ML IVPB SCH ×2 (18:59→19:00)
[2017-07-31] MEDS: cefTRIAXone 1 gm in Water For Injection 2.1 ML IM SCH ×3 (00:01→21:42)
[2017-07-31] MEDS: Albuterol 0.042% Inhal Sol (1.25 mg/3 mL) UD INH SCH ×2 (01:44→07:43)
[2017-07-31 08:43] VITALS: RESP 20
--- NOTE | 2017-07-31 09:29 | CP.PCM.PN ---
Subjective - Date & Time of Evaluation Date of Evaluation: 07/31/17 Time of Evaluation: 09:29 - Subjective Subjective: Podiatry Progress note for Dr. Lyn 56 year old female was seen at bedside with attending, Dr. Lyn regarding bilateral foot pain. Patient is seen resting comfortably in bed, in NAD, and AAOx3. She denies any overnight acute events. Patient reports that her pain today has gotten better on the right side, but hurts more on the left. She denies any n/v/f/c/sob/cp. Objective - Vital Signs/Intake and Output Vital Signs (last 24 hours): Temp Pulse Resp BP Pulse Ox 97.5 F L 69 20 104/69 100 07/31/17 08:00 07/31/17 08:00 07/31/17 08:00 07/31/17 08:00 07/31/17 08:00 - Medications Medications: Current Medications Acetaminophen (Tylenol 325mg Tab) 650 mg PO Q6 PRN PRN Reason: temp >100.4 or pain Last Admin: 07/30/17 19:08 Dose: 650 mg Albuterol Sulfate (Albuterol 0.042% Inhal Nicol (1.25mg/3ml) Ud) 1.25 mg INH RQ6 [facility] Last Admin: 07/31/17 07:43 Dose: Not Given Azithromycin (Zithromax) 500 mg PO DAILY [facility] Last Admin: 07/31/17 00:01 Dose: 500 mg Calamine (Calamine Lotion) 1 ml TOP Q8 PRN Last Admin: 07/27/17 20:37 Dose: 1 ml Digoxin (Lanoxin) 0.25 mg PO DAILY@1800 [facility] Last Admin: 07/30/17 18:57 Dose: 0.25 mg Home Med (Patient's Own Medication) 1 tab PO DAILY [facility] Last Admin: 07/30/17 09:53 Dose: 1 tab Ceftriaxone Sodium 1 gm/ (Sterile Water) 2.1 mls @ 0 mls/hr IM Q12H [facility] Last Admin: 07/31/17 00:01 Dose: 1 mls/hr Ibuprofen (Motrin Tab) 400 mg PO TIDPC [facility] Last Admin: 07/30/17 19:02 Dose: Not Given Trimethoprim/Sulfamethoxazole (Bactrim Ds Tab) 1 tab PO Q12 [facility] Last Admin: 07/31/17 00:00 Dose: 1 tab - Labs Labs: 07/21/17 07:18 07/21/17 07:18 PT 13.2 SECONDS (9.7-12.2) H 07/20/17 15:07 INR 1.2 07/20/17 15:07 APTT 32 SECONDS (21-34) 07/20/17 15:07 - Constitutional Appears: Non-toxic, No Acute Distress - Extremities Exam Additional comments: Lower extremity focused exam: Vasc: DP pulses palpable 2/4 b/l, PT pulses palpable 1/4 b/l. CFT < 3 seconds to all digits b/l. Skin temperature warm to warm from proximal to distal b/l. Neuro: Gross sensation intact b/l. Derm: Skin is dry, nails are trimmed to a hygenic length 1-5 L, 2-5 R. No open lesions noted. Ortho: Right foot 2nd digit is contracted. Amputation noted to right hallux. Tenderness on palpation to all digits and plantar aspect of metatarsal heads 1- 5 on the right and all digits on the left. - Neurological Exam Neurological Exam: Alert, Awake, Oriented x3 - Psychiatric Exam Psychiatric exam: Normal Affect, Normal Mood Assessment and Plan - Assessment and Plan (Free Text) Assessment: 56 year old female with right foot 2nd contracted digit and diffuse pain to digits Plan: Patient examined and evaluated with attending, Dr. Lyn Lab, chart, vitals reviewed X-ray reviewed: impressions:interval amputation of right 1st digit, otherwise unremarkable MRI results- no OM, no infection/inflammatory process cont IV abx per ID cont pain medication per primary No surgical intervention at this time Patient to follow up on an out patient bases Please re-consult as necessary
[2017-07-31] MEDS: Tmp-Smz 800 mg-160 mg DS Tab PO SCH ×2 (09:56)
[2017-07-31] MEDS: COMPLERA PO SCH (09:57)
--- NOTE | 2017-07-31 11:31 | CON ---
DATE: REQUESTING PHYSICIAN: Dr. Precious Cannon. This is a 56-year-old female with a history of pain and discomfort about both lower extremities. Upon evaluation of both lower extremities, we find that she has had a prior hallux amputation at [facility] in the past. Neurovascular structures to the lower extremities appear to be intact with palpable dorsalis pedis and tibialis posterior pulses. No signs of obvious ulcerations or ischemic changes. Hammer toe deformities are noted about the right second and third digit. No open ulcers, no signs of trauma. No significant surgical procedures should be entertained at this particular time. We will follow up her on an outpatient basis. Johann Lion DPM
[2017-07-31] MEDS ORDERED: Tmp-Smz 800 mg-160 mg DS Tab PO SCH (16:00)
--- NOTE | 2017-07-31 16:07 | CP.PCM.PN ---
Subjective - Date & Time of Evaluation Date of Evaluation: 07/31/17 Time of Evaluation: 04:00 - Subjective Subjective: dictated Objective - Vital Signs/Intake and Output Vital Signs (last 24 hours): Temp Pulse Resp BP Pulse Ox 97.5 F L 69 20 104/69 100 07/31/17 08:00 07/31/17 08:00 07/31/17 08:00 07/31/17 08:00 07/31/17 08:00 - Medications Medications: Current Medications Acetaminophen (Tylenol 325mg Tab) 650 mg PO Q6 PRN PRN Reason: temp >100.4 or pain Last Admin: 07/30/17 19:08 Dose: 650 mg Azithromycin (Zithromax) 500 mg PO DAILY [facility] Last Admin: 07/31/17 09:56 Dose: 500 mg Calamine (Calamine Lotion) 1 ml TOP Q8 PRN Last Admin: 07/27/17 20:37 Dose: 1 ml Digoxin (Lanoxin) 0.25 mg PO DAILY@1800 [facility] Last Admin: 07/30/17 18:57 Dose: 0.25 mg Home Med (Patient's Own Medication) 1 tab PO DAILY [facility] Last Admin: 07/31/17 09:57 Dose: 1 tab Ceftriaxone Sodium 1 gm/ (Sterile Water) 2.1 mls @ 0 mls/hr IM Q12H [facility] Last Admin: 07/31/17 09:58 Dose: 2.1 mls/hr Ibuprofen (Motrin Tab) 400 mg PO TIDPC [facility] Last Admin: 07/31/17 13:57 Dose: Not Given Trimethoprim/Sulfamethoxazole (Bactrim Ds Tab) 1 tab PO Q24H [facility] - Labs Labs: 07/21/17 07:18 07/21/17 07:18 PT 13.2 SECONDS (9.7-12.2) H 07/20/17 15:07 INR 1.2 07/20/17 15:07 APTT 32 SECONDS (21-34) 07/20/17 15:07
--- NOTE | 2017-07-31 16:27 | RAD ---
PROCEDURE: CHEST RADIOGRAPH, 1 VIEW HISTORY: follow up COMPARISON: 07/20/2017. FINDINGS: LUNGS: There are low lung volumes. There is interval improvement in right lower lobe airspace disease. There is no focal consolidation in the left lung. Interval improved aeration in the left lung base. PLEURA: No pneumothorax or pleural fluid seen. CARDIOVASCULAR: Normal. OSSEOUS STRUCTURES: No significant abnormalities. VISUALIZED UPPER ABDOMEN: Normal. OTHER FINDINGS: None. IMPRESSION: Improving right lower lobe pneumonia. Interval resolution of left basilar atelectasis.
--- NOTE | 2017-07-31 16:27 | PN ---
FOLLOWUP SUBJECTIVE: The patient denies chest pain. No reported SVT. PHYSICAL EXAMINATION: VITAL SIGNS: Blood pressure 104/69, heart rate 69, temperature 97.5, respirations 20. HEENT: Normocephalic. CHEST: Clear. HEART: S1 and S2 regular. EXTREMITIES: No edema. ASSESSMENT: 1. Paroxysmal reentrant supraventricular tachycardia. 2. Human immunodeficiency virus positive. 3. Schizophrenia. 4. Homelessness. RECOMMENDATIONS: Continue digoxin 0.25 mg daily. Continue IV Rocephin and oral Zithromax. Continue Bactrim at 1 tablet twice a day. Cornelio Degroot MD
--- NOTE | 2017-07-31 17:11 | PN ---
INFECTIOUS DISEASE FOLLOWUP SUBJECTIVE: I was away from Monday until today and Ms. Aiken was covered by Dr. Rosenbaum; however she has been on IV antibiotics and is improving right now. She denies any cough, but she has removed all her clothing. She says it is too hot and she does have psych issues, so I am not sure. I do want a chest x-ray to follow up on the chest PT, which was abnormal and was being treated for pneumonia. She also has HIV disease. Her medicine used to be Complera 1 tablet daily and that tablet was not available on our formulary. Hence, when she goes, she can start on Complera and right now she also had foot problems as the second toe has a hammertoe, but has no ulcers and is nontender, but she does not want me to me to remove the stocks at this time. I had seen it before. 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 PHYSICAL EXAMINATION: GENERAL: She is awake, alert, appears to be in no acute respiratory distress. VITAL SIGNS: T-max is 97.5, pulse 69, blood pressure 104/69, respirations are 20. HEENT: Tongue is moist. No thrush noted. NECK: Supple. JVP is flat. LUNGS: Have coarse breath sounds, however. HEART: S1, S2 is regular. ABDOMEN: Soft, nontender. No guarding. No rigidity present. EXTREMITIES: She has amputation of the right first toe. Second toe appears hammertoed that we know of and left foot is unremarkable at this time. LABORATORY DATA: Labs are noted. Labs show white count was only done on 07/21/2017. I am going to repeat those labs tomorrow and I would decrease the Bactrim to 1 tablet daily, which is for the prophylaxis per PCP. Her labs show HIV viral load is 1.30, not detected. CD4 count is 201 and 181, so it may be good to leave her on Bactrim once a day. Her CAT scan which we did to chest, chest CT showed on 07/25/2017 right middle lobe and left lower lobe consolidation consistent with pneumonia. Hence I am going to repeat it. ASSESSMENT AND PLAN: She is homeless. She is going to go to the half-way, that is what she tells me once she is released, MRI shows no osteomyelitis. There is no open wound. She was seen by Dr. Gipson also and he will call her as an outpatient if she does go to his office. At this time, I am going to repeat just the labs since we have no new labs done after 07/21/2017. I will discuss the plan with the nurse practitioner. Izabel Roberto MD
--- NOTE | 2017-07-31 17:50 | CP.PCM.PN ---
Subjective - Date & Time of Evaluation Date of Evaluation: 07/31/17 Time of Evaluation: 17:47 - Subjective Subjective: pain back and foot less cough less soh Objective - Vital Signs/Intake and Output Vital Signs (last 24 hours): Temp Pulse Resp BP Pulse Ox 97.5 F L 69 20 104/69 100 07/31/17 08:00 07/31/17 08:00 07/31/17 08:00 07/31/17 08:00 07/31/17 08:00 - Medications Medications: Current Medications Acetaminophen (Tylenol 325mg Tab) 650 mg PO Q6 PRN PRN Reason: temp >100.4 or pain Last Admin: 07/30/17 19:08 Dose: 650 mg Azithromycin (Zithromax) 500 mg PO DAILY [facility] Last Admin: 07/31/17 09:56 Dose: 500 mg Calamine (Calamine Lotion) 1 ml TOP Q8 PRN Last Admin: 07/27/17 20:37 Dose: 1 ml Digoxin (Lanoxin) 0.25 mg PO DAILY@1800 [facility] Last Admin: 07/30/17 18:57 Dose: 0.25 mg Home Med (Patient's Own Medication) 1 tab PO DAILY [facility] Last Admin: 07/31/17 09:57 Dose: 1 tab Ceftriaxone Sodium 1 gm/ (Sterile Water) 2.1 mls @ 0 mls/hr IM Q12H [facility] Last Admin: 07/31/17 09:58 Dose: 2.1 mls/hr Ibuprofen (Motrin Tab) 400 mg PO TIDPC [facility] Last Admin: 07/31/17 13:57 Dose: Not Given Trimethoprim/Sulfamethoxazole (Bactrim Ds Tab) 1 tab PO Q24H [facility] - Labs Labs: 07/21/17 07:18 07/21/17 07:18 PT 13.2 SECONDS (9.7-12.2) H 07/20/17 15:07 INR 1.2 07/20/17 15:07 APTT 32 SECONDS (21-34) 07/20/17 15:07 - Constitutional Appears: Non-toxic - Head Exam Head Exam: NORMAL INSPECTION - Eye Exam Eye Exam: Normal appearance Pupil Exam: NORMAL ACCOMODATION - ENT Exam ENT Exam: Normal Exam - Respiratory Exam Respiratory Exam: Decreased Breath Sounds, Rales - Cardiovascular Exam Cardiovascular Exam: REGULAR RHYTHM - GI/Abdominal Exam GI & Abdominal Exam: Soft - Rectal Exam Rectal Exam: NORMAL INSPECTION - Extremities Exam Extremities Exam: Normal Capillary Refill Additional comments: toe deformity cmall ulcer - Neurological Exam Neurological Exam: Alert, Normal Gait, Oriented x3 - Psychiatric Exam Psychiatric exam: Normal Mood - Skin Skin Exam: Normal Color, Pallor Assessment and Plan - Assessment and Plan (Free Text) Assessment: bilateral pnumonia hiv toe arthritis aneamia Plan: cont rx as ordered
[2017-07-31] MEDS: Digoxin 250 mcg (0.25 mg) Tab PO SCH (18:36)
[2017-08-01 08:16] VITALS: BP 103/66; PULSE 63; TEMP 98; O2SAT 98
[2017-08-01 08:36] LABS: BASO % 0.9 % (0.0-2.0); EOS # 0.1 K/uL (0.0-0.7); EOS % 2.3 % (0.0-4.0); HEMATOCRIT 38.9 % (34.0-47.0); LYMPH # 1.7 K/uL (1.0-4.3); LYMPH % 41.3 % (20.0-40.0); MEAN CELL VOLUME 86.9 fL (81.0-99.0); MEAN CORPUSCULAR HEMOGLOBIN 28.3 pg (27.0-31.0); MEAN CORPUSCULAR HGB CONC 32.5 g/dL (33.0-37.0); MEAN PLATELET VOLUME 7.3 fL (7.2-11.7); MONO # 0.5 K/uL (0.0-0.8); MONO % 11.6 % (0.0-10.0); NRBC % 0.1 % (0.0-2.0); RED CELL DISTRIBUTION WIDTH 14.7 % (11.5-14.5); WHITE BLOOD COUNT 4.1 K/uL (4.8-10.8)
[2017-08-01 09:04] LABS: ALB/GLOB RATIO 0.7 (1.0-2.1); ALKALINE PHOSPHATASE 101 U/L (38-126); ALT/SGPT 43 U/L (9-52); AST/SGOT 28 U/L (14-36); BILIRUBIN,TOTAL 0.3 mg/dL (0.2-1.3); BLOOD UREA NITROGEN 30 mg/dL (7-17); CALCIUM 9.1 mg/dl (8.6-10.4); CARBON DIOXIDE 26 mmol/L (22-30); CHLORIDE 101 mmol/L (98-107); GFR AFRICAN-AMERICAN > 60; GLUCOSE,RANDOM 87 mg/dL (65-105); POTASSIUM 4.4 mmol/L (3.6-5.2); SODIUM 135 mmol/L (132-148); TOTAL PROTEIN 9.3 g/dL (6.3-8.3)
[2017-08-01] MEDS: COMPLERA PO SCH (09:26)
[2017-08-01] MEDS: cefTRIAXone 1 gm in Water For Injection 2.1 ML IM SCH (09:30)
[2017-08-01] MEDS ORDERED: Pneumococcal 23-Valent Vaccine IM ONE (10:24)
[2017-08-01] MEDS ORDERED: Influenza Vaccine 60 mcg/0.5 mL SYR (4YR UP) IM ONE (10:24)
--- NOTE | 2017-08-01 10:27 | CP.PCM.PN ---
Subjective - Date & Time of Evaluation Date of Evaluation: 08/01/17 Time of Evaluation: 10:24 - Subjective Subjective: pt feels beter afebrile no discomfort no cough no sob Objective - Vital Signs/Intake and Output Vital Signs (last 24 hours): Temp Pulse Resp BP Pulse Ox 98 F 63 20 103/66 98 08/01/17 07:00 08/01/17 07:00 08/01/17 07:00 08/01/17 07:00 08/01/17 07:00 Intake and Output: 08/01/17 08/01/17 06:59 18:59 Intake Total 480 Balance 480 - Medications Medications: Current Medications Acetaminophen (Tylenol 325mg Tab) 650 mg PO Q6 PRN PRN Reason: temp >100.4 or pain Last Admin: 07/30/17 19:08 Dose: 650 mg Azithromycin (Zithromax) 500 mg PO DAILY [facility] Last Admin: 08/01/17 09:38 Dose: 500 mg Calamine (Calamine Lotion) 1 ml TOP Q8 PRN Last Admin: 07/27/17 20:37 Dose: 1 ml Digoxin (Lanoxin) 0.25 mg PO DAILY@1800 [facility] Last Admin: 07/31/17 18:36 Dose: 0.25 mg Home Med (Patient's Own Medication) 1 tab PO DAILY [facility] Last Admin: 08/01/17 09:26 Dose: 1 tab Ceftriaxone Sodium 1 gm/ (Sterile Water) 2.1 mls @ 0 mls/hr IM Q12H [facility] Last Admin: 08/01/17 09:30 Dose: 2.1 mls/hr Ibuprofen (Motrin Tab) 400 mg PO TIDPC [facility] Last Admin: 08/01/17 09:39 Dose: 400 mg Trimethoprim/Sulfamethoxazole (Bactrim Ds Tab) 1 tab PO Q24H [facility] Last Admin: 07/31/17 16:45 Dose: 1 tab - Labs Labs: 08/01/17 08:17 08/01/17 08:28 PT 13.2 SECONDS (9.7-12.2) H 07/20/17 15:07 INR 1.2 07/20/17 15:07 APTT 32 SECONDS (21-34) 07/20/17 15:07 - Constitutional Appears: Non-toxic - Head Exam Head Exam: NORMAL INSPECTION - Eye Exam Eye Exam: Normal appearance Pupil Exam: NORMAL ACCOMODATION - ENT Exam ENT Exam: Normal Exam - Respiratory Exam Respiratory Exam: Clear to Ausculation Bilateral - Cardiovascular Exam Cardiovascular Exam: REGULAR RHYTHM - Rectal Exam Rectal Exam: NORMAL INSPECTION - Exam Exam: NORMAL INSPECTION - Neurological Exam Neurological Exam: Alert, Awake, Normal Gait, Oriented x3 - Psychiatric Exam Psychiatric exam: Normal Affect - Skin Skin Exam: Normal Color Assessment and Plan - Assessment and Plan (Free Text) Assessment: s/p ac pnumonia hiv toe pain and small clean ylcer arthritis toe Plan: d/c today with med f/u by her
--- NOTE | 2017-08-01 11:52 | CP.PCM.PN ---
Subjective - Date & Time of Evaluation Date of Evaluation: 08/01/17 Time of Evaluation: 11:52 - Subjective Subjective: PT SEEN BY DR. ROBERTS AND CLEARED FOR D/C TO THE [facility] TODAY. I SPOKE WITH DR. CLEMENTS AND SHE IS ALSO CLEARING THE PT. PER DR. ROBERTS, RX BACTRIM DS 1 TAB PO BID X2 WEEKS AND COMPLERA QD. OK PER DR. CLEMENTS, AND WILL CONTINUE BACTRIM DS 1 TAB PO QD FOR LIFE AFTER THE 2 WEEK REGIMEN. PT TO ALSO F/U WITH PODIATRY IN THE OFFICE. THE FOLLOWING INFORMATION GIVEN TO PT ON D/C PAPERWORK AND DISCUSSED WITH PT. VERBALIZES UNDERSTANDING. NO FURTHER ORDERS. FOLLOW UP WITH DR. ROBERTS OR THE CLINIC WITHIN 1 WEEK---CALL FOR APPT TIME. FOLLOW UP WITH THE HIV CLINIC WITHIN [address] UP WITH DR. PA (PODIATRY) IN THE OFFICE WITHIN 1-2 WEEKS FOR YOUR TOE PROBLEM---CALL FOR APPT TIME. YOU HAVE BEEN PRESCRIBED AN ANTIBIOTIC. TAKE EXACTLY PRESCRIBED: BACTRIM DS (TAKE 1 TABLET) BY MOUTH EVERY 12 HOURS FOR 2 WEEKS (START ON 08/01/17 AND LAST DOSE TO BE TAKEN ON 08/15/17). STARTING ON 08/16/17, YOU WILL TAKE BACTRIM DS (TAKE 1 TABLET) BY MOUTH EVERY DAY FOR THE REST OF YOUR LIFE. YOU HAVE BEEN GIVEN A 1 MONTH PRESCRIPTION OF THIS, BEFORE YOU RUN OUT YOU HAVE TO SEE THE CLINIC!!! FOR YOU HIV, YOU MUST TAKE COMPLERA 1 TABLET EVERY DAY. IF YOU HAVE ANY FURTHER QUESTIONS OR CONCERNS, CONTACT DR. ROBERTS OR THE HIV CLINIC. Objective - Vital Signs/Intake and Output Vital Signs (last 24 hours): Temp Pulse Resp BP Pulse Ox 98 F 63 20 103/66 98 08/01/17 07:00 08/01/17 07:00 08/01/17 07:00 08/01/17 07:00 08/01/17 07:00 Intake and Output: 08/01/17 08/01/17 06:59 18:59 Intake Total 480 Balance 480 - Medications Medications: Current Medications Acetaminophen (Tylenol 325mg Tab) 650 mg PO Q6 PRN PRN Reason: temp >100.4 or pain Last Admin: 07/30/17 19:08 Dose: 650 mg Azithromycin (Zithromax) 500 mg PO DAILY [facility] Last Admin: 08/01/17 09:38 Dose: 500 mg Calamine (Calamine Lotion) 1 ml TOP Q8 PRN Last Admin: 07/27/17 20:37 Dose: 1 ml Digoxin (Lanoxin) 0.25 mg PO DAILY@1800 [facility] Last Admin: 07/31/17 18:36 Dose: 0.25 mg Home Med (Patient's Own Medication) 1 tab PO DAILY [facility] Last Admin: 08/01/17 09:26 Dose: 1 tab Ceftriaxone Sodium 1 gm/ (Sterile Water) 2.1 mls @ 0 mls/hr IM Q12H [facility] Last Admin: 08/01/17 09:30 Dose: 2.1 mls/hr Ibuprofen (Motrin Tab) 400 mg PO TIDPC [facility] Last Admin: 08/01/17 09:39 Dose: 400 mg Trimethoprim/Sulfamethoxazole (Bactrim Ds Tab) 1 tab PO Q24H [facility] Last Admin: 07/31/17 16:45 Dose: 1 tab - Labs Labs: 08/01/17 08:17 08/01/17 08:28 PT 13.2 SECONDS (9.7-12.2) H 07/20/17 15:07 INR 1.2 07/20/17 15:07 APTT 32 SECONDS (21-34) 07/20/17 15:07
--- NOTE | 2017-08-09 18:06 | HP ---
HISTORY OF PRESENT ILLNESS: The patient came into the emergency room and admitted on 07/20/2017. She came in with palpitation and she was having short of breath and she has a little bit of chest discomfort and coughing. She had history of HIV and she went into rapid heart rate up to 100 and she had rapid response on the floor. She was taking acetaminophen and albuterol and diltiazem and antibiotics. She was started on Rocephin and Zithromax on admission because of possible bilateral pneumonia. Her x-ray and her CAT scan of the chest so beside that she was feeling weak. Her CAT scan shows normal, but she has right lobe pneumonia. She was started on Rocephin and Zithromax and oxygen and her medications. ASSESSMENT: On admission, acute pneumonia and palpitation and human immunodeficiency virus. Precious Terrazas MD
--- NOTE | 2017-08-10 03:42 | DS ---
HOSPITAL COURSE: She came in because she was feeling weak, coughing, and was short of breath, and she has pneumonia on her x-ray. She has also HIV history. She was started on Zithromax and Rocephin. She was seen in consultation by . She had pain in her foot and had an MRI of her foot, which showed some deformities of the toes and some arthritis. There was not any osteomyelitis. She has inflammation. No osteomyelitis as I said. She was seen by Infectious Disease as well. She was improving with treatment and she was seen by Dr. Lion for her foot ulcer. She has less shortness of breath. She was comfortable. She has vital signs stable. Her lungs were more clear. CBC was normal. Her sugar was normal. Her BUN was 30, and creatinine 0.9. This is the last blood test before she leaves. She has arrangements done by the Social Service to help her on discharge and she was discharged on the medications. To be followed up by her Infectious Disease doctor, in the medical center. She will continue on Bactrim Double Strength twice a day for two more weeks. FINAL DIAGNOSES: 1. Acute pneumonia. 2. Acute arrhythmia. 3. Generalized weakness. 4. Human immunodeficiency virus. Precious Terrazas MD
== END 2017-08-01 13:38 | disposition home or self-care (01) | DRG 975 ==
LOC: C.ER 13:53 → C.9E 16:44 → C.6T 20:11
PROVIDERS: ADMIT Internal Medicine; ATTEND Internal Medicine
DX: J18.9 Pneumonia, unspecified organism (principal); B20 Human immunodeficiency virus [HIV] disease; I47.1 Supraventricular tachycardia; E46 Unspecified protein-calorie malnutrition; I11.0 Hypertensive heart disease with heart failure; I50.9 Heart failure, unspecified; I27.20 Pulmonary hypertension, unspecified; F20.9 Schizophrenia, unspecified; Z21 Asymptomatic human immunodeficiency virus [HIV] infection status; F31.9 Bipolar disorder, unspecified; F41.9 Anxiety disorder, unspecified; F17.210 Nicotine dependence, cigarettes, uncomplicated; F14.10 Cocaine abuse, uncomplicated; Z59.0 Homelessness; L97.519 Non-pressure chronic ulcer of other part of right foot with unspecified severity; I35.1 Nonrheumatic aortic (valve) insufficiency; L97.509 Non-pressure chronic ulcer of other part of unspecified foot with unspecified severity

== ENCOUNTER 2017-10-17 19:09 | Inpatient (IN) | payer MEDICARE, MEDICAID ==
[2017-10-17 19:09] VITALS: PULSE 90; BMI 21.1
[2017-10-17 20:00] LABS: BASO % 0.7 % (0.0-2.0); EOS % 0.7 % (0.0-4.0); HEMOGLOBIN 11.4 g/dL (11.0-16.0); LYMPH # 2.5 K/uL (1.0-4.3); LYMPH % 40.7 % (20.0-40.0); MEAN CELL VOLUME 85.7 fL (81.0-99.0); MEAN CORPUSCULAR HEMOGLOBIN 27.6 pg (27.0-31.0); MEAN CORPUSCULAR HGB CONC 32.3 g/dL (33.0-37.0); MEAN PLATELET VOLUME 7.4 fL (7.2-11.7); MONO # 0.5 K/uL (0.0-0.8); MONO % 8.5 % (0.0-10.0); NEUT # 3.1 K/uL (1.8-7.0); NEUT % 49.4 % (50.0-75.0); RBC 4.12 Mil/uL (3.80-5.20); RED CELL DISTRIBUTION WIDTH 14.3 % (11.5-14.5); WHITE BLOOD COUNT 6.2 K/uL (4.8-10.8)
[2017-10-17 20:02] LABS: HCG,QUALITATIVE URINE NEGATIVE (NEGATIVE)
[2017-10-17 20:03] LABS: SQUAMOUS EPITHIAL 4 /hpf (0-5); URINE BILIRUBIN NEGATIVE (NEGATIVE); URINE BLOOD NEGATIVE (NEGATIVE); URINE CLARITY Hazy (Clear); URINE COLOR Yellow (YELLOW); URINE GLUCOSE (UA) NORMAL (Normal); URINE LEUKOCYTE ESTERASE TRACE Leu/uL (Negative); URINE PROTEIN NEGATIVE (NEGATIVE); URINE UROBILINOGEN NORMAL mg/dL (0.2-1.0)
[2017-10-17 20:14] LABS: ALB/GLOB RATIO 0.7 (1.0-2.1); ALBUMIN 3.6 g/dL (3.5-5.0); ALT/SGPT 32 U/L (9-52); AST/SGOT 38 U/L (14-36); BLOOD UREA NITROGEN 20 mg/dL (7-17); CALCIUM 9.1 mg/dl (8.6-10.4); GFR AFRICAN-AMERICAN > 60; GFR NON-AFRICAN AMERICAN > 60
[2017-10-17 20:19] LABS: BARBITURATES, UR NEGATIVE (NEGATIVE); BENZODIAZEPINES, UR NEGATIVE (NEGATIVE); OPIATES, UR NEGATIVE (NEGATIVE); PHENCYCLIDINE, UR NEGATIVE (NEGATIVE)
--- NOTE | 2017-10-17 21:38 | C.PDOC ---
History Of Present Illness <Kayla Reddy - Last Filed: 10/17/17 22:15> <Remy Harding - Last Filed: 10/18/17 00:03> 56-year-old female, presents to the emergency department complaining of not feeling well. Patient has not taken psychiatric meds in a few days. Admits to being homeless and states it is cold outside. Denies following with psychiatrist since prior admission. Patient denies any SI/HI, auditory or visual hallucinations. (Kayla Reddy) History Per: Patient History/Exam Limitations: no limitations Onset/Duration Of Symptoms: Days <Kayla Reddy - Last Filed: 10/17/17 22:15> <Remy Harding - Last Filed: 10/18/17 00:03> Time Seen by Provider: 10/17/17 19:34 Chief Complaint (Nursing): Med Refill Past Medical History Reviewed: Historical Data, Nursing Documentation, Vital Signs - Medical History PMH: Anxiety, Bipolar Disorder, HIV, Paranoia, Schizophrenia Family History: States: No Known Family Hx - Social History Hx Tobacco Use: Yes Hx Alcohol Use: No (Per pt) Hx Substance Use: Yes (Per pt) - Immunization History Hx Tetanus Toxoid Vaccination: No Hx Influenza Vaccination: No Hx Pneumococcal Vaccination: No <FrankdebKayla - Last Filed: 10/17/17 22:15> Vital Signs: Last Vital Signs Temp 98.8 F 10/17/17 19:38 Pulse 100 H 10/17/17 19:38 Resp 20 10/17/17 19:38 BP 104/72 10/17/17 19:38 Pulse Ox 100 10/17/17 22:17 - [facility] Procedures INDIVIDUAL PSYCHOTHERAPY, SUPPORTIVE (09/06/17) Review Of Systems Cardiovascular: Negative for: Chest Pain Respiratory: Negative for: Shortness of Breath Gastrointestinal: Negative for: Vomiting Psych: Negative for: Psychosis, Suicidal ideation <FrankKayla boyd - Last Filed: 10/17/17 22:15> Physical Exam - Physical Exam Appears: Non-toxic, No Acute Distress, Unkempt Skin: Warm, No Diaphoretic, No Jaundice Head: Normacephalic Eye(s): bilateral: Normal Inspection, EOMI Nose: Normal Oral Mucosa: Moist Neck: Normal ROM Chest: Symmetrical Cardiovascular: Rhythm Regular Respiratory: Normal Breath Sounds, No Accessory Muscle Use Extremity: Normal ROM, Capillary Refill (<2 seconds), No Deformity, No Swelling Neurological/Psych: Normal Speech (flight of ideas) <Kayla Reddy - Last Filed: 10/17/17 22:15> ED Course And Treatment - Laboratory Results Result Diagrams: 10/17/17 19:56 10/17/17 19:56 O2 Sat by Pulse Oximetry: 100 (RA) Pulse Ox Interpretation: Normal Progress Note: Bloodwork ordered and reviewed. Pending crisis evaluation. Dr Harding took over pts care at 10pm. <Kayla Reddy - Last Filed: 10/17/17 22:15> - Laboratory Results Result Diagrams: 10/17/17 19:56 10/17/17 19:56 <Remy Harding - Last Filed: 10/18/17 00:03> Medical Decision Making <Kayla Reddy - Last Filed: 10/17/17 22:15> <Remy Harding - Last Filed: 10/18/17 00:03> Medical Decision Making: discussed with Dr. Singh and will admit to psych unit. patient evaluated by crisis team. (Remy Harding) Disposition - Disposition Disposition Time: 22:16 <Kayla Reddy - Last Filed: 10/17/17 22:15> Discussed With DrRosalva: Meño Singh Doctor Will See Patient In The: Hospital Counseled Patient/Family Regarding: Studies Performed, Diagnosis - Disposition Disposition Time: 23:58 <Remy Harding - Last Filed: 10/18/17 00:03> - Disposition Disposition: HOSPITALIZED Condition: FAIR Forms: [employer] (Thai) - Clinical Impression Clinical Impression: Schizophrenia, Cocaine abuse - Scribe Statement The provider has reviewed the documentation as recorded by the Scribe (Renato Damon) <Kayla eRddy - Last Filed: 10/17/17 22:15> <Remy Harding - Last Filed: 10/18/17 00:03> - Scribe Statement All medical record entries made by the Scribe were at my direction and personally dictated by me. I have reviewed the chart and agree that the record accurately reflects my personal performance of the history, physical exam, medical decision making, and the department course for this patient. I have also personally directed, reviewed, and agree with the discharge instructions and disposition. (Kayla Reddy)
--- NOTE | 2017-10-18 01:59 | PCM.BM ---
<Gonzalo Srinivasan - Last Filed: 10/18/17 01:56> Treatment Plan Problems - Problems identified on initial assessmt HOPELESSNESS/ HELPLESSNESS Date Initiated: 10/18/17 Time Initiated: 01:10 Assessment reference: NA Status: Active SUBSTANCE ABUSE Date Initiated: 10/18/17 Time Initiated: 01:10 Assessment reference: NA Status: Active Treatment assets and liabiliti Patient Assests: cooperative, self-reliant, ADL independent, negotiates basic needs Patient Liabilities: live alone, financial problems, poor support system, substance abuse, medical problems - Milieu Protocol Maintain good personal hygiene: daily Encourage regular showers, daily Remind patient to perform daily oral care, daily Assist patient to perform ADL's Maintain personal safety: every shift Educate patient to report safety concerns to staff, every shift Monitor environment for contraband/sharps Medication safety: Monitor for expected outcome, potential side effects: every shift, Assess barriers to learning: every shift, Assess readiness for medication education: every shift <Jocelyn Mitchell - Last Filed: 10/18/17 16:37> - Diagnosis (1) Schizoaffective disorder Status: Acute Interventions: 10/18/17 16:40 * Assess/adjust medications daily and /or as needed * Discuss risks, benefits, sided effects and alternatives of medications * See patient on an individual basis 7x/week to assess level of delusional thoughts/ideation * * Assess/adjust medications daily and /or as needed * See patient on an individual basis 7x/week to assess symptoms of depression * Monitor for side effects & effectiveness of medications * (2) Cocaine use disorder, severe, dependence Status: Acute Interventions: 10/18/17 16:41 * Assess 7x/week regarding severity of withdrawal * Educate regarding risks, benefits, side effects and alternatives of medications * Use Motivational Interviewing for abstinence * Use CBT for relapse prevention * Medication management for withdrawal symptoms * Encourage medication assisted treatment * <Marija Almeida - Last Filed: 10/20/17 10:55> Family Contact Family involvement: Famliy/SO not involved - Goals for Treatment Patient goals for treatment: "I don't know." Discharge/Continuing Care - Education Needs Education Needs: Patient Medication, Patient Coping Skills, Patient Placement options, Patient Community resources - Discharge Discharge Criteria: Tolerates medication w/o severe side effects, Reduction of target symptoms Discharge to:: Senior Living - Treatment Team Participation Discussed with Family/SO: No Was Patient/Family/SO present at Treatment Team Meeting: Yes
--- NOTE | 2017-10-18 12:49 | PCM.PSYCH ---
Initial Psychiatric Evaluation - Initial Psychiatric Evaluation Type of Admission: Voluntary Legal Status: Capacity Chief Complaint (in patient's own words): "I was cold and they stole my medications" History of Present Illness and Precipitating Events: 56 yo F, homeless, with PMHx significant for schizophrenia, cocaine abuse, SVT and HIV, who presented to the ED last night stating that she was cold and hasn' t been able to take her medications over the last few days. This morning when asked about why she came in she said "They stole my medication, I went to get coffee and they just...". Patient remains very drowsy and lethargic and responds minimally to questioning. She denies feeling depressed, having SI/HI or any hallucinations at this time. As per chart review, patient has been admitted here back in August and July, for schizophrenia. At that time, patient was found by police, naked, disorganized and with bizarre behavior. She was admitted to our service, where she progressively improved, mood was stabilized and she began attending group therapy sessions and socializing well. Patient was subsequently discharged with prescriptions for Paxil, Prolixin, Neurontin, Trazodone and Cogentin, and referred to follow-up with various clinical social worker. At this time, patient is in NAD. No other complaints are noted. Current Medications: Active Medications Generic Name Dose Route Start Last Admin Trade Name Freq PRN Reason Stop Dose Admin Benztropine Mesylate 1 mg 10/18/17 18:00 Cogentin PO BID KHARI Escitalopram Oxalate 5 mg 10/18/17 11:45 Lexapro PO DAILY KHARI Hydroxyzine HCl 25 mg 10/18/17 01:49 Atarax PO Q6 PRN Anxiety Pneumococcal Polyvalent Vaccine 0.5 ml 10/20/17 10:30 Pneumovax 23 Vaccine IM 10/20/17 10:31 .ONCE ONE Risperidone 1 mg 10/18/17 18:00 Risperdal Tab PO BID KHARI Trazodone HCl 100 mg 10/18/17 22:00 Desyrel PO HS PRN Sleep Past Psychiatric History - Past Psychiatric History Pertinent Medical Hx (Current Medical&Sleep Prob, Allergies): Allergies Allergy/AdvReac Type Severity Reaction Status Date / Time ibuprofen Allergy ANAPHYLAXIS Verified 10/17/17 19:41 Gabapentin [Neurontin] 300 mg PO BID #60 cap 09/11/17 PARoxetine [Paxil] 10 mg PO DAILY #30 tab 09/11/17 fluPHENAZine [Prolixin] 10 mg PO BID #60 tab 09/11/17 traZODone [Desyrel] 50 mg PO HS #30 tab 09/11/17 Divalproex [Depakote ER(ONCE DAILY)] 1 tab PO BID 10/17/17 Risperidone [Risperdal] 1 tab PO DAILY 10/17/17 Review of Systems - Psychiatric Psychiatric: absent: Confusion, Depression, Hallucinations, Homicidal Ideation, Irritability, Paranoia, Suicidal Ideation, Visual Hallucinations Mental Status Examination - Personal Presentation Personal Presentation: Looks older than stated age - Affect Affect: Constricted - Motor Activity Motor Activity: Calm - Reliability in Providing Information Reliability in Providing Information: Poor, due to altered mood - Speech Speech: Irrelevant, Incoherent - Mood Mood: Depressed - Formal Thought Process Formal Thought Process: Loosening of associations - Obsessions/Compulsions Obsessions: No Compulsions: No - Cognitive Functions Orientation: Person, Place Sensorium: Drowsy, Lethargic Estimate of Intelligence: Below average Judgement: Imparied, as evidence by: Lack of insight into illness Memory: Recent impaired, as evidence by: Inability to recall events of the day, Remote impaired as evidenced by: Inability to recall sig life events - Risk Risk: Withdrawal, Diminished functioning - Strength & Assets Inventory Strength & Assets Inventory: Cooperative - Limitations Limitations: Living alone, Other (homeless) DSM 5 DX - DSM 5 DSM 5 Diagnosis: Schizoaffective d/o - depressed Cocaine use d/o - severe - Recommended/Plan of Treatment Treatment Recommendations and Plan of Treatment: Schizoaffective d/o: Risperidone/cogentin for psychosis Lexapro fr depression As needed medications Will monitor for acute changes Will re-evaluate after patient's orientation improves Attend groups and activities Therapy Cocaine use d/o: Gabpentin if needed SC for abstinence Refer to rehab 34 min Projected ELOS: 6 days Prognosis: Good with treatment - Smoking Cessation Smoking Cessation Initiated: No
--- NOTE | 2017-10-19 13:05 | PCM.PYCHPN ---
Psychiatric Progress Note - Psychiatric Progress Note Patient seen today, length of contact: 15 min Patient Chief Complaint: "I slept okay" Problems Identified/Issues Discussed: The pt is seen, chart reviewed, case discussed with staff. The pt is compliant with medications and reports no side-effects. Patient reports sleeping fine last night and that her mood is okay today. She does admit to some feelings of depression but denies any SI or hallucinations. Additionally patient, admits to mild, intermittent palpitations that occurred this morning, but have spontaneously resolved. Denies any chest pain, SOB, n/v/d, abdominal pain, diaphoresis or any other complaints. Symptoms otherwise improving and patient needs more time to stabilize. After care discussed, support and psychoeducation given. Medication Change: Yes (psych changes daily) Medical Record Reviewed: Yes Mental Status Examination - Cognitive Function Orientation: Person, Place Attention: Poor Concentration: Poor Association: Loose Fund of Knowledge: Poor - Mood Mood: Depressed - Affect Affect: Constricted - Speech Speech: Slurred, Soft - Language Language: Word Retrieval - Formal Thought Process Formal Thought Process: Loosening of associations - Homicidal Ideation Homicidal Ideation: No Goal/Treatment Plan - Goal/Treatment Plan Need for Continued Stay: Remain at risks for inpatient hospitalization, Severe depression anxiety, Discharge may exacerbated symptoms, Severe functional impairment Progress Toward Problem(s) and Goals/Treatment Plan: Schizoaffective d/o: Risperidone/cogentin for psychosis Lexapro for depression As needed medications Will monitor for acute changes Will re-evaluate after patient's orientation improves Attend groups and activities Therapy Cocaine use d/o: Gabapentin if needed NC for abstinence Refer to rehab - Smoking Cessation Smoking Cessation Initiated: No
[2017-10-20] MEDS ORDERED: Influenza Vaccine 60 mcg/0.5 mL SYR (4YR UP) IM ONE (10:10)
[2017-10-20] MEDS ORDERED: Pneumococcal 23-Valent Vaccine IM ONE (10:30)
--- NOTE | 2017-10-20 11:07 | PCM.PYCHPN ---
Psychiatric Progress Note - Psychiatric Progress Note Patient seen today, length of contact: 15 min Patient Chief Complaint: "I am better" Problems Identified/Issues Discussed: The pt is seen, chart reviewed, case discussed with staff. Support given, CBT and NE used briefly No new symptoms reported, improving slowly and needs more time No SEs from medications, risks discussed. After care discussed - she claims to be enrolled with an outpt clinic but doesn' t recall name: "[facility]?" Likely [facility] [place] Medication Change: Yes (psych changes daily) Medical Record Reviewed: Yes Mental Status Examination - Cognitive Function Orientation: Person, Place Attention: Poor Concentration: Poor Association: Loose Fund of Knowledge: Poor - Mood Mood: Depressed - Affect Affect: Constricted - Speech Speech: Slurred, Soft - Language Language: Word Retrieval - Formal Thought Process Formal Thought Process: Loosening of associations - Homicidal Ideation Homicidal Ideation: No Goal/Treatment Plan - Goal/Treatment Plan Need for Continued Stay: Remain at risks for inpatient hospitalization, Severe depression anxiety, Discharge may exacerbated symptoms, Severe functional impairment Progress Toward Problem(s) and Goals/Treatment Plan: Schizoaffective d/o: Risperidone/cogentin for psychosis Lexapro for depression As needed medications Will monitor for acute changes Will re-evaluate after patient's orientation improves Attend groups and activities Therapy Cocaine use d/o: Gabapentin if needed NE for abstinence Refer to rehab Estimated Date of D/C: 10/23/17
[2017-10-20 14:00] LABS: ALB/GLOB RATIO 0.8 (1.0-2.1); ALBUMIN 3.6 g/dL (3.5-5.0); ALT/SGPT 27 U/L (9-52); AST/SGOT 27 U/L (14-36); BLOOD UREA NITROGEN 18 mg/dL (7-17); CALCIUM 8.8 mg/dl (8.6-10.4); GFR AFRICAN-AMERICAN > 60; GFR NON-AFRICAN AMERICAN > 60
[2017-10-20 14:19] LABS: FREE T4 1.07 ng/dL (0.78-2.19)
[2017-10-22 07:16] VITALS: RESP 20; O2SAT 100
[2017-10-22] MEDS: Naproxen 275 mg Tab PO SCH (18:21)
--- NOTE | 2017-10-22 23:04 | CARD ---
APPROVED REPORT EKG Measurement Heart [id number] <Conclusion> Normal sinus rhythm Normal ECG
[2017-10-23 05:48] VITALS: BP 104/64; PULSE 80; TEMP 98.5
--- NOTE | 2017-10-23 10:12 | PCM.PYCHPN ---
Psychiatric Progress Note - Psychiatric Progress Note Patient seen today, length of contact: 15 min Patient Chief Complaint: "I am better" Problems Identified/Issues Discussed: The pt is seen, chart reviewed, case discussed with staff. Support given, CBT and IA used briefly No new symptoms reported, improving slowly and needs more time No SEs from medications, risks discussed. After care discussed - she claims to be enrolled with an outpt clinic but doesn' t recall name: "[facility]?" Likely [facility] [place] Medication Change: Yes (psych changes daily) Medical Record Reviewed: Yes Mental Status Examination - Cognitive Function Orientation: Person, Place Attention: Poor Concentration: Poor Association: Loose Fund of Knowledge: Poor - Mood Mood: Depressed - Affect Affect: Constricted - Speech Speech: Slurred, Soft - Language Language: Word Retrieval - Formal Thought Process Formal Thought Process: Loosening of associations - Homicidal Ideation Homicidal Ideation: No Goal/Treatment Plan - Goal/Treatment Plan Need for Continued Stay: Remain at risks for inpatient hospitalization, Severe depression anxiety, Discharge may exacerbated symptoms, Severe functional impairment Progress Toward Problem(s) and Goals/Treatment Plan: Schizoaffective d/o: Risperidone/cogentin for psychosis Lexapro for depression As needed medications Will monitor for acute changes Will re-evaluate after patient's orientation improves Attend groups and activities Therapy Cocaine use d/o: Gabapentin if needed IA for abstinence Refer to rehab Estimated Date of D/C: 10/23/17
[2017-10-23] MEDS: Naproxen 275 mg Tab PO SCH (10:27)
--- NOTE | 2017-10-23 12:54 | PCM.PYCHDC ---
Mental Status Examination - Mental Status Examination Orientation: Person Discharge Summary - Discharge Note Consultations:: List each consultation separately and include: 1. Reason for request. 2. Findings. 3. Follow-up Summary of Hospital Course include:: 1. Description of specific treatment plan utilized for patients during their course of treatmen. 2. Summarize the time- course for resolution of acute symptoms and/or regressed behaviors. 3. Describe issues identified and worked on during hospitalization. 4. Describe medication utilized. 5. Describe medical problems identified and treated. 6. Reassessment of suicide risk Summary of Hospital Course: 56 yo F, homeless, with PMHx significant for schizophrenia, cocaine abuse, SVT and HIV, who presented to the ED last night stating that she was cold and hasn' t been able to take her medications over the last few days. This morning when asked about why she came in she said "They stole my medication, I went to get coffee and they just...". Patient remains very drowsy and lethargic and responds minimally to questioning. She denies feeling depressed, having SI/HI or any hallucinations at this time. As per chart review, patient has been admitted here back in August and July, for schizophrenia. At that time, patient was found by police, naked, disorganized and with bizarre behavior. She was admitted to our service, where she progressively improved, mood was stabilized and she began attending group therapy sessions and socializing well. Patient was subsequently discharged with prescriptions for Paxil, Prolixin, Neurontin, Trazodone and Cogentin, and referred to follow-up with various psychiatric social worker supervisor. At this time, patient is in NAD. No other complaints are noted. - Diagnosis (1) Schizoaffective disorder Current Visit: Yes Status: Acute (2) Cocaine use disorder, severe, dependence Current Visit: No Status: Acute - Final Diagnosis (DSM 5) Condition upon Discharge: FAIR Disposition: HOME/ ROUTINE Prescriptions/Medication Reconciliation: Benztropine [Cogentin] 1 mg PO DAILY #30 tab Escitalopram [Lexapro] 10 mg PO DAILY #30 tab OLANZapine [Zyprexa] 10 mg PO QPM #30 tab
== END 2017-10-23 13:00 | disposition home or self-care (01) | DRG 885 ==
LOC: C.ER 19:09 → C.5E 23:57
PROC: GZ3ZZZZ Medication Management (ICD-10-PCS; principal; 2017-10-17)
PROC: GZHZZZZ Group Psychotherapy (ICD-10-PCS; 2017-10-17)
PROC: GZ56ZZZ Individual Psychotherapy, Supportive (ICD-10-PCS; 2017-10-17)
PROC: HZ89ZZZ Medication Management for Substance Abuse Treatment, Other Replacement Medication (ICD-10-PCS; 2017-10-17)
DX: F25.1 Schizoaffective disorder, depressive type (principal); F14.20 Cocaine dependence, uncomplicated; F17.210 Nicotine dependence, cigarettes, uncomplicated; Z59.0 Homelessness

== ENCOUNTER 2017-11-16 18:17 | Inpatient (IN) | payer MEDICARE, MEDICAID ==
[2017-11-16 18:17] VITALS: PULSE 90; BMI 21.1
--- NOTE | 2017-11-16 19:08 | C.PDOC ---
History Of Present Illness Patient presents to the ER stating she has not taken her meds in approximately 6 weeks and has been experiencing some chest discomfort. Patient is also requesting a refill of his psych meds. Patient is homeless, pleasant, and cooperative. Denies fever, chills, nausea, or vomiting. Time Seen by Provider: 11/16/17 19:07 Chief Complaint (Nursing): Chest Pain History Per: Patient History/Exam Limitations: no limitations Onset/Duration Of Symptoms: Days Current Symptoms Are (Timing): Still Present Context: Other Severity: Mild Pain Scale Rating Of: 4 Quality: Other (Discomfort) Associated Symptoms: denies: Nausea, Dyspnea, Diaphoresis, Syncope Modifying Factors: None Exacerbating Factors: None Alleviating Factors: None Recent travel outside of the [place]: No Additional History Per: Patient Past Medical History Reviewed: Historical Data, Nursing Documentation, Vital Signs Vital Signs: Last Vital Signs Temp 101.2 F H 11/16/17 20:09 Pulse 120 H 11/16/17 18:55 Resp 20 11/16/17 18:55 BP 117/77 11/16/17 18:55 Pulse Ox 97 11/16/17 19:56 - Medical History PMH: Anxiety, Bipolar Disorder, HIV, Paranoia, Schizophrenia - [facility] Procedures GROUP PSYCHOTHERAPY (10/17/17) INDIVIDUAL PSYCHOTHERAPY, SUPPORTIVE (10/17/17) MEDICATION MANAGEMENT (10/17/17) MEDS MGMT FOR SUBSTANCE ABUSE TREATMENT, OTH REPL MED (10/17/17) Family History: States: No Known Family Hx - Social History Hx Tobacco Use: Yes Hx Alcohol Use: No Hx Substance Use: Yes - Immunization History Hx Tetanus Toxoid Vaccination: No Hx Influenza Vaccination: No Hx Pneumococcal Vaccination: No Review Of Systems Constitutional: Negative for: Fever, Chills Cardiovascular: Positive for: Other (Chest discomfort) Respiratory: Negative for: Shortness of Breath Gastrointestinal: Negative for: Nausea, Vomiting Physical Exam - Physical Exam Appears: Non-toxic, Other (Flat affect) Skin: Warm, Dry Head: Normacephalic Eye(s): bilateral: Normal Inspection Oral Mucosa: Moist Teeth: Other (poor dentition) Neck: Trachea Midline, Supple Chest: Symmetrical, No Tenderness Cardiovascular: Rhythm Regular Respiratory: No Rales, No Rhonchi, No Wheezing Gastrointestinal/Abdominal: Bowel Sounds (Active), Soft, No Tenderness Back: No CVA Tenderness Extremity: No Tenderness Extremity: Bilateral: Atraumatic, Normal Color And Temperature Pulses: Left Dorsalis Pedis: Normal, Right Dorsalis Pedis: Normal Neurological/Psych: Oriented x3 Gait: Steady ED Course And Treatment - Laboratory Results Result Diagrams: 11/16/17 19:27 11/16/17 19:27 ECG: Interpreted By Me, Viewed By Me ECG Rhythm: Sinus Rhythm (119), Nonspecific Changes O2 Sat by Pulse Oximetry: 97 (Room air) Pulse Ox Interpretation: Normal - Radiology CXR: Interpreted by Me, Viewed By Me CXR Interpretation: Yes: Infiltrates (rll infiltrate). No: COPD, Cardiomegaly Progress Note: Blood work, CXR, EKG, and urinalysis ordered. Tylenol administered. Crisis notified. Disposition Discussed With : Isiah Tapia Comment: accepted the pt on his service and took over the care at 9:20 PM Doctor Will See Patient In The: Hospital Counseled Patient/Family Regarding: Studies Performed, Diagnosis - Disposition Disposition: HOSPITALIZED Disposition Time: 19:08 Condition: FAIR Forms: [employer] ([employer]) - Clinical Impression Clinical Impression: Chest pain, Schizophrenia, CHF (congestive heart failure), Pneumonia - Scribe Statement The provider has reviewed the documentation as recorded by the Scribkaitlyn Sevilla All medical record entries made by the Scribe were at my direction and personally dictated by me. I have reviewed the chart and agree that the record accurately reflects my personal performance of the history, physical exam, medical decision making, and the department course for this patient. I have also personally directed, reviewed, and agree with the discharge instructions and disposition. Decision To Admit - Pt Status Changed To: Hospital Disposition Of: Inpatient - Admit Certification Admit to Inpatient:: After my assessment, the patient will require hospitalization for at least two midnights. This is because of the severity of symptoms shown, intensity of services needed, and/or the medical risk in this patient being treated as an outpatient. - InPatient: Physician Admission Certification: I certify that this patient requires 2 or more midnights of care for the following reason:: After my assessment, the patient will require hospitalization for at least two midnights. This is because of the severity of symptoms shown, intensity of services needed, and/or the medical risk in this patient being treated as an outpatient. - . Bed Request Type: Telemetry Admitting Physician: Isiah Tapia Patient Diagnosis: Chest pain, Schizophrenia, CHF (congestive heart failure)
[2017-11-16 19:30] LABS: BASO # 0.1 K/uL (0.0-0.2); BASO % 0.5 % (0.0-2.0); HEMOGLOBIN 11.5 g/dL (11.0-16.0); MEAN CELL VOLUME 84.4 fL (81.0-99.0); MEAN CORPUSCULAR HGB CONC 33.2 g/dL (33.0-37.0); MEAN PLATELET VOLUME 7.9 fL (7.2-11.7); MONO # 1.1 K/uL (0.0-0.8); MONO % 7.8 % (0.0-10.0); NEUT # 7.5 K/uL (1.8-7.0); NEUT % 54.7 % (50.0-75.0); RBC 4.12 Mil/uL (3.80-5.20); RED CELL DISTRIBUTION WIDTH 14.1 % (11.5-14.5); WHITE BLOOD COUNT 13.6 K/uL (4.8-10.8)
[2017-11-16 19:42] LABS: INR 1.2; PROTHROMBIN TIME 13.1 SECONDS (9.7-12.2)
[2017-11-16 19:43] LABS: ALB/GLOB RATIO 0.7 (1.0-2.1); ALBUMIN 3.8 g/dL (3.5-5.0); ALT/SGPT 19 U/L (9-52); AST/SGOT 33 U/L (14-36); BLOOD UREA NITROGEN 15 mg/dL (7-17); CALCIUM 8.7 mg/dl (8.6-10.4); GFR AFRICAN-AMERICAN > 60; GFR NON-AFRICAN AMERICAN > 60
[2017-11-16 19:55] LABS: B-TYPE NATRIURETIC PEPTIDE 1100 pg/mL (0-900)
[2017-11-16 19:59] LABS: VENOUS BLOOD GAS BASE EXCESS -3.4 mmol/L (0.0-2.0); VENOUS BLOOD GAS PCO2 32 mmHg (40-60); VENOUS BLOOD GAS PO2 46 mm/Hg (30-55); VENOUS BLOOD PH 7.41 (7.32-7.43)
[2017-11-16] MEDS ORDERED: Piperacillin/Tazobact 3.375 gm 100 ML IVPB STA (19:59)
[2017-11-16] MEDS ORDERED: Piperacillin/Tazobact 3.375 gm 100 ML IVPB ONE (20:07)
[2017-11-16 20:08] LABS: HCG,QUALITATIVE URINE NEGATIVE (NEGATIVE)
[2017-11-16 20:11] LABS: URINE BILIRUBIN NEGATIVE (NEGATIVE); URINE CLARITY Clear (Clear); URINE COLOR Yellow (YELLOW); URINE GLUCOSE (UA) NORMAL (Normal); URINE LEUKOCYTE ESTERASE NEG Leu/uL (Negative); URINE PROTEIN NEGATIVE (NEGATIVE); URINE UROBILINOGEN NORMAL mg/dL (0.2-1.0)
[2017-11-16 20:16] LABS: URINE BLOOD NEGATIVE (NEGATIVE)
[2017-11-16 20:22] LABS: BARBITURATES, UR NEGATIVE (NEGATIVE); BENZODIAZEPINES, UR NEGATIVE (NEGATIVE); OPIATES, UR NEGATIVE (NEGATIVE); PHENCYCLIDINE, UR NEGATIVE (NEGATIVE)
[2017-11-17] MEDS ORDERED: Azithromycin 500mg/250ML NS 500 MG/250 ML BAG IVPB ONE (00:10)
[2017-11-17] MEDS: Azithromycin 500 MG in Sodium Chloride 0.9% 250 ML IVPB SCH (01:11)
[2017-11-17 04:16] LABS: CK-MB 0.49 ng/mL (0.0-3.38); TROPONIN I 0.024 ng/mL (0.00-0.120)
--- NOTE | 2017-11-17 08:33 | RAD ---
Chest x-ray single frontal view History: Chest pain. Comparison: 07/20/2017 Findings: Patchy increased markings at the lung bases which may represent mild atelectasis and or infiltrate. Clinical correlation. Persistent small nodular density at the right lung apex. Heart size within normal limits. Impression: Patchy increased markings at the lung bases which may represent mild atelectasis and or infiltrate. Clinical correlation. Persistent small nodular density at the right lung apex.
[2017-11-17] MEDS ORDERED: Azithromycin 500 MG in Sodium Chloride 0.9% 250 ML IVPB SCH (10:00)
[2017-11-17] MEDS: cefTRIAXone IV 1 gm in Dextros 50 ML IVPB SCH (10:00)
[2017-11-17] MEDS: Pantoprazole 40 mg EC Tab PO SCH (10:51)
[2017-11-17] MEDS: Enoxaparin 40 mg Syringe SC SCH (10:55)
--- NOTE | 2017-11-17 15:05 | PCM.PSYCH ---
Initial Psychiatric Evaluation - Initial Psychiatric Evaluation Type of Admission: Voluntary Legal Status: Capacity Chief Complaint (in patient's own words): Consult for History of Schizophrenia History of Present Illness and Precipitating Events: Patient seen, chart reviewed, and discussed with staff. This is a 57 year old female, who is unemployed and homeless, who came to the ED on 11/16/2017 for chest pain. Patient states she has been homeless and not been taking her medications. Patient has a past history of Schizophrenia and has not been taking her medications. Patient states she also used [facility]. Patient states she has not been using any other substances. Patient denies alcohol use and tobacco use. Patient states she has not heard any voices. Patient denies depression, anxiety, hallucinations, paranoia, or suicidal ideation. Patient has past history of hospitalization for Schizophrenia. According to EMR , patient has been hospitalized her in August and July for Schizophrenia. psych history: Schizophrenia, Cocaine Use Disorder medial history: SVT, HIV Allergies: Ibuprofen Current Medications: Active Medications Generic Name Dose Route Start Last Admin Trade Name Ramanaq PRN Reason Stop Dose Admin Aspirin 81 mg 11/18/17 10:00 Aspirin Chewable PO DAILY KHARI Benztropine Mesylate 1 mg 11/17/17 18:00 Cogentin PO BID KHARI Enoxaparin Sodium 40 mg 11/17/17 10:00 11/17/17 10:55 Lovenox SC 40 mg DAILY KHARI Administration Escitalopram Oxalate 10 mg 11/17/17 10:00 11/17/17 10:55 Lexapro PO 10 mg DAILY KHARI Administration Fluphenazine HCl 5 mg 11/17/17 14:01 Prolixin PO BID KHARI Gabapentin 300 mg 11/17/17 10:00 11/17/17 10:51 Neurontin PO 300 mg BID KHARI Administration Ceftriaxone Sodium 50 mls @ 50 mls/30 min 11/17/17 10:00 11/17/17 10:00 Rocephin Iv 1 Gm Duplex IVPB 50 mls/30 min DAILY KHARI Administration Protocol Azithromycin 500 mg/ Sodium 250 mls @ 250 mls/hr 11/17/17 00:00 11/17/17 01: 11 Chloride IVPB 250 mls/hr Q24H KHARI Administration Protocol Olanzapine 10 mg 11/17/17 22:00 Zyprexa PO HS KHARI Pantoprazole Sodium 40 mg 11/17/17 10:00 11/17/17 10:51 Protonix Ec Tab PO 40 mg DAILY [facility] Administration Pneumococcal Polyvalent Vaccine 0.5 ml 11/18/17 10:00 Pneumovax 23 Vaccine SC 11/18/17 10:01 .ONCE ONE Trazodone HCl 50 mg 11/17/17 22:00 Desyrel PO HS [facility] Past Psychiatric History - Past Psychiatric History Previous Treatment History: Inpatient At [facility]: [facility] Nature of Treatment: Schizophrenia History of ETOH/Drug Use: Cocaine Use Pertinent Medical Hx (Current Medical&Sleep Prob, Allergies): Allergies Allergy/AdvReac Type Severity Reaction Status Date / Time ibuprofen Allergy ANAPHYLAXIS Verified 10/17/17 19:41 Gabapentin [Neurontin] 300 mg PO BID #60 cap 09/11/17 PARoxetine [Paxil] 10 mg PO DAILY #30 tab 09/11/17 fluPHENAZine [Prolixin] 10 mg PO BID #60 tab 09/11/17 traZODone [Desyrel] 50 mg PO HS #30 tab 09/11/17 Divalproex [Depakote ER(ONCE DAILY)] 1 tab PO BID 10/17/17 Risperidone [Risperdal] 1 tab PO DAILY 10/17/17 Benztropine [Cogentin] 1 mg PO DAILY #30 tab 10/23/17 Escitalopram [Lexapro] 10 mg PO DAILY #30 tab 10/23/17 OLANZapine [Zyprexa] 10 mg PO QPM #30 tab 10/23/17 Review of Systems - Review of Systems All systems: reviewed and no additional remarkable complaints except - Psychiatric Psychiatric: absent: Anxiety, Depression, Hallucinations, Hopelessness, Paranoia , Suicidal Ideation Mental Status Examination - Personal Presentation Personal Presentation: Looks older than stated age - Affect Affect: Flat - Motor Activity Motor Activity: Calm - Reliability in Providing Information Reliability in Providing Information: Fair - Speech Speech: Disorganized - Mood Mood: Neutral - Formal Thought Process Formal Thought Process: Loosening of associations - Obsessions/Compulsions Obsessions: No Compulsions: No - Cognitive Functions Orientation: Person, Place, Situation Sensorium: Drowsy - Limitations Limitations: Living alone DSM 5 DX - DSM 5 DSM 5 Diagnosis: Schizophrenia Cocaine Use Disorder - Recommended/Plan of Treatment Treatment Recommendations and Plan of Treatment: Start Lexapro 10mg Start Zyprexa 10mg Start Prolixin 5mg BID and cogentin All risks, benefits and alternatives of the meds discussed, and the pt agreed and understood. Psychoeducation and support daily Encourage compliance with meds and after care Refer to outpatient program with addiction component Teach healthy lifestyle methods, i.e. diet, exercise, meditation 32 min
--- NOTE | 2017-11-17 18:00 | CP.PCM.HP ---
Past Patient History - Infectious Disease Hx of Infectious Diseases: None - Past Medical History & Family History Past Medical History?: Yes - Past Social History Smoking Status: Heavy Smoker > 10 Cigarettes Daily - CARDIAC Hx Hypertension: No - PULMONARY Hx Respiratory Disorders: No Hx Tuberculosis: No - NEUROLOGICAL Hx Seizures: No - HEENT Hx HEENT Problems: No - RENAL Hx Chronic Kidney Disease: No - ENDOCRINE/METABOLIC Hx Endocrine Disorders: No - HEMATOLOGICAL/ONCOLOGICAL Hx Human Immunodeficiency Virus (HIV): Yes - INTEGUMENTARY Hx Dermatological Problems: No - MUSCULOSKELETAL/RHEUMATOLOGICAL Hx Musculoskeletal Disorders: No Hx Falls: No - GASTROINTESTINAL Hx Gastrointestinal Disorders: No - GENITOURINARY/GYNECOLOGICAL Hx Sexually Transmitted Disorders: No - PSYCHIATRIC Hx Anxiety: Yes Hx Bipolar Disorder: Yes Hx Paranoia: Yes Hx Schizophrenia: Yes Hx Substance Use: Yes (cocaine) - SURGICAL HISTORY Hx Amputation: Yes (R Big Toe) - ANESTHESIA Hx Anesthesia: Yes Hx Anesthesia Reactions: No Meds Allergies/Adverse Reactions: Allergies Allergy/AdvReac Type Severity Reaction Status Date / Time ibuprofen Allergy ANAPHYLAXIS Verified 10/17/17 19:41 Physical Exam - Constitutional Appears: Well - Head Exam Head Exam: ATRAUMATIC, NORMAL INSPECTION, NORMOCEPHALIC - Eye Exam Eye Exam: EOMI, Normal appearance, PERRL Pupil Exam: NORMAL ACCOMODATION, PERRL - ENT Exam ENT Exam: Mucous Membranes Moist, Normal Exam - Neck Exam Neck exam: Positive for: Normal Inspection - Respiratory Exam Respiratory Exam: Decreased Breath Sounds - Cardiovascular Exam Cardiovascular Exam: REGULAR RHYTHM, +S1, +S2 - GI/Abdominal Exam GI & Abdominal Exam: Diminished Bowel Sounds, Soft - Rectal Exam Rectal Exam: Deferred Results - Vital Signs Recent Vital Signs: Last Vital Signs Temp 97.4 F L 11/17/17 15:05 Pulse 91 H 11/17/17 15:05 Resp 20 11/17/17 15:05 BP 90/54 L 11/17/17 15:05 Pulse Ox 98 11/17/17 15:05 - Labs Result Diagrams: 11/16/17 19:27 11/16/17 19:27 Labs: Laboratory Results - last 24 hr 11/16/17 11/16/17 11/16/17 19:27 19:27 19:27 WBC 13.6 H D RBC 4.12 Hgb 11.5 Hct 34.7 MCV 84.4 MCH 28.0 MCHC 33.2 RDW 14.1 Plt Count 250 MPV 7.9 Neut % (Auto) 54.7 Lymph % (Auto) 37.0 [place] % (Auto) 7.8 Eos % (Auto) 0.0 Baso % (Auto) 0.5 Neut # (Auto) 7.5 H Lymph # (Auto) 5.0 H [place] # (Auto) 1.1 H Eos # (Auto) 0.0 Baso # (Auto) 0.1 PT 13.1 H INR 1.2 APTT 34 pO2 VBG pH VBG pCO2 VBG HCO3 VBG Total CO2 VBG O2 Sat (Calc) VBG Base Excess VBG Potassium Glucose Lactate Sodium 136 Potassium 3.5 L Chloride 103 Carbon Dioxide 22 Anion Gap 15 BUN 15 Creatinine 0.8 Est GFR ( Amer) > 60 Est GFR (Non-Af Amer) > 60 Random Glucose 80 Calcium 8.7 Total Bilirubin 0.4 AST 33 ALT 19 Alkaline Phosphatase 90 Total Creatine Kinase CK-MB (Mass) Troponin I 0.0230 NT-Pro-B Natriuret Pep 1100 H Total Protein 9.5 H Albumin 3.8 Globulin 5.7 H Albumin/Globulin Ratio 0.7 L Venous Blood Potassium Urine Color Urine Clarity Urine pH Ur Specific [place] Urine Protein Urine Glucose (UA) Urine Ketones Urine Blood Urine Nitrate Urine Bilirubin Urine Urobilinogen Ur Leukocyte Esterase Urine WBC (Auto) Urine RBC (Auto) Urine HCG, Qual Urine Opiates Screen Urine Methadone Screen Ur Barbiturates Screen Ur Phencyclidine Scrn Ur Amphetamines Screen U Benzodiazepines Scrn U Oth Cocaine Metabols U Cannabinoids Screen 11/16/17 11/16/17 11/16/17 19:50 19:50 19:56 WBC RBC Hgb Hct MCV MCH MCHC RDW Plt Count MPV Neut % (Auto) Lymph % (Auto) [place] % (Auto) Eos % (Auto) Baso % (Auto) Neut # (Auto) Lymph # (Auto) [place] # (Auto) Eos # (Auto) Baso # (Auto) PT INR APTT pO2 46 VBG pH 7.41 VBG pCO2 32 L VBG HCO3 21.9 VBG Total CO2 21.3 L VBG O2 Sat (Calc) 88.0 H VBG Base Excess -3.4 L VBG Potassium 3.1 L Glucose 112 H Lactate 1.1 Sodium 134.0 Potassium Chloride 108.0 H Carbon Dioxide Anion Gap BUN Creatinine Est GFR ( Amer) Est GFR (Non-Af Amer) Random Glucose Calcium Total Bilirubin AST ALT Alkaline Phosphatase Total Creatine Kinase CK-MB (Mass) Troponin I NT-Pro-B Natriuret Pep Total Protein Albumin Globulin Albumin/Globulin Ratio Venous Blood Potassium 3.1 L Urine Color Yellow Urine Clarity Clear Urine pH 5.0 Ur Specific [place] 1.015 Urine Protein Negative Urine Glucose (UA) Normal Urine Ketones Negative Urine Blood Negative Urine Nitrate Negative Urine Bilirubin Negative Urine Urobilinogen Normal Ur Leukocyte Esterase Neg Urine WBC (Auto) < 1 Urine RBC (Auto) < 1 Urine HCG, Qual Negative Urine Opiates Screen Negative Urine Methadone Screen Negative Ur Barbiturates Screen Negative Ur Phencyclidine Scrn Negative Ur Amphetamines Screen Negative U Benzodiazepines Scrn Negative U Oth Cocaine Metabols Positive H U Cannabinoids Screen Negative 11/17/17 11/17/17 03:46 11:09 WBC RBC Hgb Hct MCV MCH MCHC RDW Plt Count MPV Neut % (Auto) Lymph % (Auto) [place] % (Auto) Eos % (Auto) Baso % (Auto) Neut # (Auto) Lymph # (Auto) [place] # (Auto) Eos # (Auto) Baso # (Auto) PT INR APTT pO2 VBG pH VBG pCO2 VBG HCO3 VBG Total CO2 VBG O2 Sat (Calc) VBG Base Excess VBG Potassium Glucose Lactate Sodium Potassium Chloride Carbon Dioxide Anion Gap BUN Creatinine Est GFR ( Amer) Est GFR (Non-Af Amer) Random Glucose Calcium Total Bilirubin AST ALT Alkaline Phosphatase Total Creatine Kinase 108 86 CK-MB (Mass) 0.49 0.30 Troponin I 0.0240 < 0.0120 NT-Pro-B Natriuret Pep Total Protein Albumin Globulin Albumin/Globulin Ratio Venous Blood Potassium Urine Color Urine Clarity Urine pH Ur Specific [place] Urine Protein Urine Glucose (UA) Urine Ketones Urine Blood Urine Nitrate Urine Bilirubin Urine Urobilinogen Ur Leukocyte Esterase Urine WBC (Auto) Urine RBC (Auto) Urine HCG, Qual Urine Opiates Screen Urine Methadone Screen Ur Barbiturates Screen Ur Phencyclidine Scrn Ur Amphetamines Screen U Benzodiazepines Scrn U Oth Cocaine Metabols U Cannabinoids Screen
[2017-11-17] MEDS: Dextrose 5%/0.45% NS 1,000 ML IV SCH (18:18)
[2017-11-17] MEDS ORDERED: Naloxone 0.4 mg/ml Inj (Adult) IVP ONE (18:22)
[2017-11-17 18:29] LABS: ABG ALLEN TEST POS; ARTERIAL BLOOD GAS HCO3 25.1 mmol/L (21-28); ARTERIAL BLOOD GAS O2 SAT 99.6 % (95-98); ARTERIAL BLOOD GAS PCO2 35 mm/Hg (35-45); ARTERIAL BLOOD GAS PH 7.44 (7.35-7.45); ARTERIAL BLOOD GAS PO2 126 mm/Hg (80-100); ARTERIAL BLOOD GAS TCO2 24.9 mmol/L (22-28)
--- NOTE | 2017-11-17 18:39 | CP.PCM.CON ---
History of Present Illness - History of Present Illness History of Present Illness: 57 y/o female with pmx of cocaine abuse, h/o hiv, h/o schizophrenia [facility]. Patient was started on her anti-psychotic medications and was later found to be drowsy. ICU consulted for evaluation. Patient drowsy. opens eyes, did not verbalize, follows simple commands. limited history 2nd above clinical findings Review of Systems - Review of Systems Review of Systems: ROS reviwed: limited - Constitutional Constitutional: As Per HPI Past Patient History - Infectious Disease Hx of Infectious Diseases: None - Tetanus Immunizations Tetanus Immunization: Unknown - Past Medical History & Family History Past Medical History?: Yes Past Family History: Reviewed and not pertinent - Past Social History Smoking Status: Heavy Smoker > 10 Cigarettes Daily - CARDIAC Hx Hypertension: No - PULMONARY Hx Respiratory Disorders: No Hx Tuberculosis: No - NEUROLOGICAL Hx Seizures: No - HEENT Hx HEENT Problems: No - RENAL Hx Chronic Kidney Disease: No - ENDOCRINE/METABOLIC Hx Endocrine Disorders: No - HEMATOLOGICAL/ONCOLOGICAL Hx Human Immunodeficiency Virus (HIV): Yes - INTEGUMENTARY Hx Dermatological Problems: No - MUSCULOSKELETAL/RHEUMATOLOGICAL Hx Musculoskeletal Disorders: No Hx Falls: No - GASTROINTESTINAL Hx Gastrointestinal Disorders: No - GENITOURINARY/GYNECOLOGICAL Hx Sexually Transmitted Disorders: No - PSYCHIATRIC Hx Anxiety: Yes Hx Bipolar Disorder: Yes Hx Paranoia: Yes Hx Schizophrenia: Yes Hx Substance Use: Yes (cocaine) - SURGICAL HISTORY Hx Amputation: Yes (R Big Toe) - ANESTHESIA Hx Anesthesia: Yes Hx Anesthesia Reactions: No Meds Allergies/Adverse Reactions: Allergies Allergy/AdvReac Type Severity Reaction Status Date / Time ibuprofen Allergy ANAPHYLAXIS Verified 10/17/17 19:41 - Medications Medications: Current Medications Aspirin (Aspirin Chewable) 81 mg PO DAILY [facility] Benztropine Mesylate (Cogentin) 1 mg PO BID [facility] Enoxaparin Sodium (Lovenox) 40 mg SC DAILY [facility] Last Admin: 11/17/17 10:55 Dose: 40 mg Escitalopram Oxalate (Lexapro) 10 mg PO DAILY [facility] Last Admin: 11/17/17 10:55 Dose: 10 mg Fluphenazine HCl (Prolixin) 5 mg PO BID [facility] Gabapentin (Neurontin) 300 mg PO BID [facility] Last Admin: 11/17/17 10:51 Dose: 300 mg Ceftriaxone Sodium (Rocephin Iv 1 Gm Duplex) 50 mls @ 50 mls/30 min IVPB DAILY KHARI PRN Reason: Protocol Last Admin: 11/17/17 10:00 Dose: 50 mls/30 min Azithromycin 500 mg/ Sodium (Chloride) 250 mls @ 250 mls/hr IVPB Q24H KHARI PRN Reason: Protocol Last Admin: 11/17/17 01:11 Dose: 250 mls/hr Dextrose/Sodium Chloride (Dextrose 5%/0.45% Ns 1000 Ml) 1,000 mls @ 100 mls/hr IV .Q10H [facility] Last Admin: 11/17/17 18:18 Dose: 100 mls/hr Olanzapine (Zyprexa) 10 mg PO HS [facility] Pantoprazole Sodium (Protonix Ec Tab) 40 mg PO DAILY [facility] Last Admin: 11/17/17 10:51 Dose: 40 mg Pneumococcal Polyvalent Vaccine (Pneumovax 23 Vaccine) 0.5 ml SC .ONCE ONE Stop: 11/18/17 10:01 Trazodone HCl (Desyrel) 50 mg PO [facility] Physical Exam - Head Exam Head Exam: ATRAUMATIC, NORMAL INSPECTION, NORMOCEPHALIC - Eye Exam Eye Exam: EOMI Pupil Exam: NORMAL ACCOMODATION - ENT Exam ENT Exam: Mucous Membranes Moist - Neck Exam Neck exam: Negative for: Meningismus - Respiratory Exam Respiratory Exam: NORMAL BREATHING PATTERN - Cardiovascular Exam Cardiovascular Exam: REGULAR RHYTHM, +S1, +S2, +S4 - GI/Abdominal Exam GI & Abdominal Exam: Normal Bowel Sounds, Soft - Extremities Exam Extremities exam: Positive for: normal inspection Results - Vital Signs Recent Vital Signs: Last Vital Signs Temp 97.4 F L 11/17/17 15:05 Pulse 91 H 11/17/17 15:05 Resp 20 11/17/17 15:05 BP 90/54 L 11/17/17 15:05 Pulse Ox 98 11/17/17 15:05 - Labs Result Diagrams: 11/16/17 19:27 11/16/17 19:27 Labs: Laboratory Results - last 24 hr 11/16/17 11/16/17 11/16/17 19:27 19:27 19:27 WBC 13.6 H D RBC 4.12 Hgb 11.5 Hct 34.7 MCV 84.4 MCH 28.0 MCHC 33.2 RDW 14.1 Plt Count 250 MPV 7.9 Neut % (Auto) 54.7 Lymph % (Auto) 37.0 [place] % (Auto) 7.8 Eos % (Auto) 0.0 Baso % (Auto) 0.5 Neut # (Auto) 7.5 H Lymph # (Auto) 5.0 H [place] # (Auto) 1.1 H Eos # (Auto) 0.0 Baso # (Auto) 0.1 PT 13.1 H INR 1.2 APTT 34 Puncture Site pCO2 pO2 HCO3 ABG pH ABG Total CO2 ABG O2 Saturation ABG Base Excess [place] Test ABG Potassium VBG pH VBG pCO2 VBG HCO3 VBG Total CO2 VBG O2 Sat (Calc) VBG Base Excess VBG Potassium A-a O2 Difference Respiratory Index Glucose Lactate Liter Flow FiO2 Sodium 136 Potassium 3.5 L Chloride 103 Carbon Dioxide 22 Anion Gap 15 BUN 15 Creatinine 0.8 Est GFR ( Amer) > 60 Est GFR (Non-Af Amer) > 60 Random Glucose 80 Calcium 8.7 Total Bilirubin 0.4 AST 33 ALT 19 Alkaline Phosphatase 90 Total Creatine Kinase CK-MB (Mass) Troponin I 0.0230 NT-Pro-B Natriuret Pep 1100 H Total Protein 9.5 H Albumin 3.8 Globulin 5.7 H Albumin/Globulin Ratio 0.7 L Arterial Blood Potassium Venous Blood Potassium Urine Color Urine Clarity Urine pH Ur Specific [place] Urine Protein Urine Glucose (UA) Urine Ketones Urine Blood Urine Nitrate Urine Bilirubin Urine Urobilinogen Ur Leukocyte Esterase Urine WBC (Auto) Urine RBC (Auto) Urine HCG, Qual Urine Opiates Screen Urine Methadone Screen Ur Barbiturates Screen Ur Phencyclidine Scrn Ur Amphetamines Screen U Benzodiazepines Scrn U Oth Cocaine Metabols U Cannabinoids Screen 11/16/17 11/16/17 11/16/17 19:50 19:50 19:56 WBC RBC Hgb Hct MCV MCH MCHC RDW Plt Count MPV Neut % (Auto) Lymph % (Auto) [place] % (Auto) Eos % (Auto) Baso % (Auto) Neut # (Auto) Lymph # (Auto) [place] # (Auto) Eos # (Auto) Baso # (Auto) PT INR APTT Puncture Site pCO2 pO2 46 HCO3 ABG pH ABG Total CO2 ABG O2 Saturation ABG Base Excess [place] Test ABG Potassium VBG pH 7.41 VBG pCO2 32 L VBG HCO3 21.9 VBG Total CO2 21.3 L VBG O2 Sat (Calc) 88.0 H VBG Base Excess -3.4 L VBG Potassium 3.1 L A-a O2 Difference Respiratory Index Glucose 112 H Lactate 1.1 Liter Flow FiO2 Sodium 134.0 Potassium Chloride 108.0 H Carbon Dioxide Anion Gap BUN Creatinine Est GFR ( Amer) Est GFR (Non-Af Amer) Random Glucose Calcium Total Bilirubin AST ALT Alkaline Phosphatase Total Creatine Kinase CK-MB (Mass) Troponin I NT-Pro-B Natriuret Pep Total Protein Albumin Globulin Albumin/Globulin Ratio Arterial Blood Potassium Venous Blood Potassium 3.1 L Urine Color Yellow Urine Clarity Clear Urine pH 5.0 Ur Specific [place] 1.015 Urine Protein Negative Urine Glucose (UA) Normal Urine Ketones Negative Urine Blood Negative Urine Nitrate Negative Urine Bilirubin Negative Urine Urobilinogen Normal Ur Leukocyte Esterase Neg Urine WBC (Auto) < 1 Urine RBC (Auto) < 1 Urine HCG, Qual Negative Urine Opiates Screen Negative Urine Methadone Screen Negative Ur Barbiturates Screen Negative Ur Phencyclidine Scrn Negative Ur Amphetamines Screen Negative U Benzodiazepines Scrn Negative U Oth Cocaine Metabols Positive H U Cannabinoids Screen Negative 11/17/17 11/17/17 11/17/17 03:46 11:09 16:25 WBC RBC Hgb Hct MCV MCH MCHC RDW Plt Count MPV Neut % (Auto) Lymph % (Auto) [place] % (Auto) Eos % (Auto) Baso % (Auto) Neut # (Auto) Lymph # (Auto) [place] # (Auto) Eos # (Auto) Baso # (Auto) PT INR APTT Puncture Site Rra pCO2 35 pO2 126 H HCO3 25.1 ABG pH 7.44 ABG Total CO2 24.9 ABG O2 Saturation 99.6 H ABG Base Excess 0.1 [place] Test Pos ABG Potassium 3.1 L VBG pH VBG pCO2 VBG HCO3 VBG Total CO2 VBG O2 Sat (Calc) VBG Base Excess VBG Potassium A-a O2 Difference 30.0 Respiratory Index 0.2 Glucose 97 Lactate 0.5 L Liter Flow 2.0 FiO2 28.0 Sodium 138.0 Potassium Chloride 108.0 H Carbon Dioxide Anion Gap BUN Creatinine Est GFR ( Amer) Est GFR (Non-Af Amer) Random Glucose Calcium Total Bilirubin AST ALT Alkaline Phosphatase Total Creatine Kinase 108 86 CK-MB (Mass) 0.49 0.30 Troponin I 0.0240 < 0.0120 NT-Pro-B Natriuret Pep Total Protein Albumin Globulin Albumin/Globulin Ratio Arterial Blood Potassium 3.1 L Venous Blood Potassium Urine Color Urine Clarity Urine pH Ur Specific [place] Urine Protein Urine Glucose (UA) Urine Ketones Urine Blood Urine Nitrate Urine Bilirubin Urine Urobilinogen Ur Leukocyte Esterase Urine WBC (Auto) Urine RBC (Auto) Urine HCG, Qual Urine Opiates Screen Urine Methadone Screen Ur Barbiturates Screen Ur Phencyclidine Scrn Ur Amphetamines Screen U Benzodiazepines Scrn U Oth Cocaine Metabols U Cannabinoids Screen Assessment & Plan - Assessment and Plan (Free Text) Assessment: AMS: suspect 2nd medications: hold all antipsychotic medications as all can cause drowsiness, obtain utox, drugn serum screen, CT head, motor function intact, -Leukocytosis: suspect sepsis: however lactic normal, check UA/urine culure, procalcitonin, rx empirically as PNA: with vanco/zosyn/doxy -h/o HIV: obtain infectious disease consult -COPD: no wheezing, breathing without difficulty, obtain pulmonary consult -continue bronchodilators -narcan pushed with good response. -Patient remains hemodyanmically stable. Please obtain End Tidal CO2 q4hrs Multiple diagnostic tests pending, inclduing CT head, trop/ekg and drug screen Patient remains hemodynamically stable -keep NC to 2 liters to keep saturation b.w 90-92 (NOT 100% SPO2) Please call ICU if patient's clinical status worsens. d/w nursing - Date & Time Date: 11/17/17 Time: 18:43
--- NOTE | 2017-11-17 19:26 | CT ---
EXAM: CT Head Without Intravenous Contrast EXAM DATE/TIME: Exam ordered 11/17/2017 6:11 PM CLINICAL HISTORY: 57 years old, female; Signs and symptoms; Altered mental status/memory loss and weakness, extremity; Additional info: AMS TECHNIQUE: Axial computed tomography images of the head/brain without intravenous contrast. All CT scans at this facility use one or more dose reduction techniques, viz.: automated exposure control; ma/kV adjustment per patient size (including targeted exams where dose is matched to indication; i.e. head); or iterative reconstruction technique. COMPARISON: CT - HEAD W/O CONTRAST 2015-08-28 13:33 FINDINGS: Brain: The the calcifications are seen in the basal ganglia on the right. No hemorrhage. No significant white matter disease. Ventricles: Unremarkable. No ventriculomegaly. Bones/joints: Unremarkable. No acute fracture. Soft tissues: Unremarkable. Sinuses: There is severe mucosal thickening in the right maxillary sinus. Mild mucosal thickening is seen in the ethmoid air cells Mastoid air cells: Unremarkable as visualized. No mastoid effusion. IMPRESSION: 1. No acute findings. 2. Chronic sinusitis in the right maxillary and the ethmoid air cells and the
--- NOTE | 2017-11-17 22:26 | CARD ---
APPROVED REPORT EKG Measurement Heart [id number] <Conclusion> Sinus tachycardia Possible Left atrial enlargement Borderline ECG
--- NOTE | 2017-11-17 23:17 | CP.PCM.CON ---
History of Present Illness - History of Present Illness History of Present Illness: INFECTIOUS DISEASE CONSULT; SEE REPORT. dICTATED DICTATION NUMBER; [id number]. SEE ORDERS Past Patient History - Infectious Disease Hx of Infectious Diseases: None - Tetanus Immunizations Tetanus Immunization: Unknown - Past Medical History & Family History Past Medical History?: Yes Past Family History: Reviewed and not pertinent - Past Social History Smoking Status: Heavy Smoker > 10 Cigarettes Daily - CARDIAC Hx Hypertension: No - PULMONARY Hx Respiratory Disorders: No Hx Tuberculosis: No - NEUROLOGICAL Hx Seizures: No - HEENT Hx HEENT Problems: No - RENAL Hx Chronic Kidney Disease: No - ENDOCRINE/METABOLIC Hx Endocrine Disorders: No - HEMATOLOGICAL/ONCOLOGICAL Hx Human Immunodeficiency Virus (HIV): Yes - INTEGUMENTARY Hx Dermatological Problems: No - MUSCULOSKELETAL/RHEUMATOLOGICAL Hx Musculoskeletal Disorders: No Hx Falls: No - GASTROINTESTINAL Hx Gastrointestinal Disorders: No - GENITOURINARY/GYNECOLOGICAL Hx Sexually Transmitted Disorders: No - PSYCHIATRIC Hx Anxiety: Yes Hx Bipolar Disorder: Yes Hx Paranoia: Yes Hx Schizophrenia: Yes Hx Substance Use: Yes (cocaine) - SURGICAL HISTORY Hx Amputation: Yes (R Big Toe) - ANESTHESIA Hx Anesthesia: Yes Hx Anesthesia Reactions: No Meds Allergies/Adverse Reactions: Allergies Allergy/AdvReac Type Severity Reaction Status Date / Time ibuprofen Allergy ANAPHYLAXIS Verified 10/17/17 19:41 - Medications Medications: Current Medications Aspirin (Aspirin Chewable) 81 mg PO DAILY [facility] Benztropine Mesylate (Cogentin) 1 mg PO BID [facility] Last Admin: 11/17/17 18:00 Dose: Not Given Enoxaparin Sodium (Lovenox) 40 mg SC DAILY [facility] Last Admin: 11/17/17 10:55 Dose: 40 mg Escitalopram Oxalate (Lexapro) 10 mg PO DAILY [facility] Last Admin: 11/17/17 10:55 Dose: 10 mg Ceftriaxone Sodium (Rocephin Iv 1 Gm Duplex) 50 mls @ 50 mls/30 min IVPB DAILY [facility] PRN Reason: Protocol Last Admin: 11/17/17 10:00 Dose: 50 mls/30 min Azithromycin 500 mg/ Sodium (Chloride) 250 mls @ 250 mls/hr IVPB Q24H [facility] PRN Reason: Protocol Last Admin: 11/17/17 01:11 Dose: 250 mls/hr Dextrose/Sodium Chloride (Dextrose 5%/0.45% Ns 1000 Ml) 1,000 mls @ 100 mls/hr IV .Q10H [facility] Last Admin: 11/17/17 18:18 Dose: 100 mls/hr Pantoprazole Sodium (Protonix Ec Tab) 40 mg PO DAILY [facility] Last Admin: 11/17/17 10:51 Dose: 40 mg Pneumococcal Polyvalent Vaccine (Pneumovax 23 Vaccine) 0.5 ml SC .ONCE ONE Stop: 11/18/17 10:01 Results - Vital Signs Recent Vital Signs: Last Vital Signs Temp 97.4 F L 11/17/17 15:05 Pulse 91 H 11/17/17 15:05 Resp 22 11/17/17 19:43 BP 90/54 L 11/17/17 15:05 Pulse Ox 99 11/17/17 19:43 - Labs Result Diagrams: 11/16/17 19:27 11/16/17 19:27 Labs: Laboratory Results - last 24 hr 11/17/17 11/17/17 11/17/17 03:46 11:09 16:25 Puncture Site Rra pCO2 35 pO2 126 H HCO3 25.1 ABG pH 7.44 ABG Total CO2 24.9 ABG O2 Saturation 99.6 H ABG Base Excess 0.1 Blayne Test Pos ABG Potassium 3.1 L A-a O2 Difference 30.0 Respiratory Index 0.2 Sodium 138.0 Chloride 108.0 H Glucose 97 Lactate 0.5 L Liter Flow 2.0 FiO2 28.0 POC Glucose (mg/dL) Total Creatine Kinase 108 86 CK-MB (Mass) 0.49 0.30 Troponin I 0.0240 < 0.0120 Arterial Blood Potassium 3.1 L 11/17/17 11/17/17 17:02 19:01 Puncture Site pCO2 pO2 HCO3 ABG pH ABG Total CO2 ABG O2 Saturation ABG Base Excess Blayne Test ABG Potassium A-a O2 Difference Respiratory Index Sodium Chloride Glucose Lactate Liter Flow FiO2 POC Glucose (mg/dL) 86 Total Creatine Kinase CK-MB (Mass) Troponin I < 0.0120 Arterial Blood Potassium
[2017-11-18] MEDS: Azithromycin 500 MG in Sodium Chloride 0.9% 250 ML IVPB SCH (00:16)
[2017-11-18] MEDS: Sulfamethoxazole/Trimethoprim 160 MG in Dextrose 5% In Water 250 ML IVPB SCH ×3 (02:07→17:24)
[2017-11-18] MEDS: Dextrose 5%/0.45% NS 1,000 ML IV SCH ×2 (05:27→14:10)
[2017-11-18 07:02] LABS: ALB/GLOB RATIO 0.6 (1.0-2.1); ALBUMIN 3.2 g/dL (3.5-5.0); BILIRUBIN,DIRECT 0.3 mg/dL (0.0-0.4)
[2017-11-18 07:14] LABS: BASO % 0.3 % (0.0-2.0); EOS % 0.6 % (0.0-4.0); HEMOGLOBIN 11.3 g/dL (11.0-16.0); LYMPH % 28.1 % (20.0-40.0); MEAN CELL VOLUME 84.3 fL (81.0-99.0); MEAN CORPUSCULAR HEMOGLOBIN 27.8 pg (27.0-31.0); MEAN PLATELET VOLUME 8.1 fL (7.2-11.7); MONO # 0.4 K/uL (0.0-0.8); MONO % 5.6 % (0.0-10.0); NEUT # 4.8 K/uL (1.8-7.0); NEUT % 65.4 % (50.0-75.0); NRBC % 0.1 % (0.0-2.0); RBC 4.04 Mil/uL (3.80-5.20); WHITE BLOOD COUNT 7.3 K/uL (4.8-10.8)
--- NOTE | 2017-11-18 08:07 | CON ---
DATE: INFECTIOUS DISEASE CONSULTATION REQUESTED BY: Dr. Barbra Tapia. REASON FOR CONSULTATION: HIV positive, schizophrenia, congestive heart failure, and chest pain. HISTORY OF PRESENT ILLNESS: The patient is a 57-year-old female with known history of HIV, on questionable Complera as revealed from her old chart, presently came in [facility], complaining of chest pain. The patient was started on her anti-psych medications as she has history of schizophrenia and was later found to be very drowsy. The details cannot be obtained. The patient was very drowsy and not answering verbally or by touch. Opens eyes for a little while but does not concentrate or follows any commands. History obtained mainly from the chart whichever is available from the clinical findings. The patient has never been seen by me before. PAST MEDICAL HISTORY: As above, history of bipolar disorder, schizophrenia, also history of cocaine abuse, HIV positive, how long not known. REVIEW OF SYSTEMS: Cannot be obtained, very limited. The patient is poorly arousable with no concentration, mostly drowsy. Reported by the nurse that she woke up for a while and had breakfast and then went to sleep. Presently not able to arouse, except opens her eyes and closes them. RN was with me while doing the examination. ALLERGIES: NOTED, THE PATIENT IS ALLERGIC TO IBUPROFEN. SOCIAL HISTORY: As reported, probably history of drug abuse, cocaine abuse, smoking as noted by chart, heavy smoker, more than 10 cigarettes daily. IMMUNIZATIONS: Unknown. PAST MEDICAL HISTORY: Limited as reported by the chart. PHYSICAL EXAMINATION: GENERAL: The patient is drowsy, poorly arousable. VITAL SIGNS: Blood pressure 105/70, respirations 20, pulse of 91 per minute, T-max of 98.3. Oxygen saturation 98% to 99% on room air. HEENT: Pupils equal and reactive to light and accommodation. Extraocular movements could not be tested. NECK: Appears to be supple. LUNGS: Diminished breath sounds at the bases. CARDIOVASCULAR SYSTEM: Sinus tachycardia, regular. S1, S2. No murmur or gallop. ABDOMEN: Soft, nontender. No masses. Bowel sounds are present. EXTREMITIES: No cyanosis, clubbing, or edema. No calf tenderness noted. VEGETABLE BUNCHER: Difficult to evaluate. Withdrawal reflex present. VEGETABLE BUNCHER examination is limited. LABORATORY DATA: WBC 13.6, H and H of 11.5 and 34.7, platelets are 250. Creatinine 0.8, BUN of 15. Liver function tests are normal. Pro-BNP is 1100. Serum lactate was 1.1, presently 0.5. Blood gases as noted, pH of 7.41, pCO2 of 32, and pO2 of 88. Chest x-ray, reported patchy interstitial markings at lung bases consistent with atelectasis versus infiltrate, also noted persistent small nodular densities, right lung apex as reported by chest x-ray. CT of the head on the patient without contrast showed no acute findings except for chronic sinusitis, right maxillary and ethmoid air cells. IMPRESSION: 1. Altered mental status, most likely secondary to polypharmacy psych medications. Questionable cocaine abuse. 2. Human immunodeficiency virus positive. Human immunodeficiency virus viral load unknown, lymphocyte count unknown. Medication, questionable Complera in the past as noted. 3. Leukocytosis, possible source pneumonia, rule out atypical pneumonia. 4. Right maxillary sinusitis, chronic as reported by CT scan of the head. 5. Bipolar disorder and schizophrenia by history. PLAN: Pancultures, UA and urine cultures. We will also get cryptococcal antigen, VDRL, FTA, sed rate. Continue IV ceftriaxone 1 gm every 24 hours for now and IV Zithromax 500 every 24 hours as ordered, day 1. We will add IV Bactrim one 60 mg (trimethoprim-sulfamethoxazole) every 8 hours for pneumocystis jiroveci coverage. Follow up HIV-1 RNA quantitative levels and lymphocyte subset studies. Hold all psych medications as noted and suggested by judicial clerk on-call. As reported multiple diagnostic tests have been sent and pending. Hold ICU eval as noted. Case discussed with the staff and nursing on-call. We will follow along with you and make any further recommendations as needed. Please get old chart if possible from medical center. Jolly Wolfe MD
[2017-11-18] MEDS: Pantoprazole 40 mg EC Tab PO SCH (09:45)
[2017-11-18] MEDS: Enoxaparin 40 mg Syringe SC SCH (09:45)
[2017-11-18] MEDS: cefTRIAXone IV 1 gm in Dextros 50 ML IVPB SCH (09:45)
[2017-11-18] MEDS ORDERED: Pneumococcal 23-Valent Vaccine SC ONE (10:00)
[2017-11-18 16:28] VITALS: RESP 20
--- NOTE | 2017-11-18 18:16 | CP.PCM.PN ---
Subjective - Date & Time of Evaluation Date of Evaluation: 11/18/17 Time of Evaluation: 13:20 - Subjective Subjective: clinically same Objective - Vital Signs/Intake and Output Vital Signs (last 24 hours): Temp Pulse Resp BP Pulse Ox 99.1 F 88 20 89/53 L 99 11/18/17 15:27 11/18/17 15:27 11/18/17 15:27 11/18/17 15:27 11/18/17 15:27 Intake and Output: 11/18/17 11/18/17 06:59 18:59 Intake Total 650 Balance 650 - Medications Medications: Current Medications Aspirin (Aspirin Chewable) 81 mg PO DAILY [facility] Last Admin: 11/18/17 09:45 Dose: 81 mg Benztropine Mesylate (Cogentin) 1 mg PO BID [facility] Last Admin: 11/18/17 17:51 Dose: 1 mg Enoxaparin Sodium (Lovenox) 40 mg SC DAILY [facility] Last Admin: 11/18/17 09:45 Dose: 40 mg Escitalopram Oxalate (Lexapro) 10 mg PO DAILY [facility] Last Admin: 11/18/17 09:42 Dose: 10 mg Ceftriaxone Sodium (Rocephin Iv 1 Gm Duplex) 50 mls @ 50 mls/30 min IVPB DAILY [facility] PRN Reason: Protocol Last Admin: 11/18/17 09:45 Dose: 50 mls/30 min Azithromycin 500 mg/ Sodium (Chloride) 250 mls @ 250 mls/hr IVPB Q24H [facility] PRN Reason: Protocol Last Admin: 11/18/17 00:16 Dose: 250 mls/hr Dextrose/Sodium Chloride (Dextrose 5%/0.45% Ns 1000 Ml) 1,000 mls @ 100 mls/hr IV .Q10H [facility] Last Admin: 11/18/17 14:10 Dose: 100 mls/hr Trimethoprim/Sulfamethoxazole (160 mg/ Dextrose) 250 mls @ 250 mls/hr IVPB Q8H [facility] PRN Reason: Protocol Last Admin: 11/18/17 17:24 Dose: 250 mls/hr Potassium Chloride (Potassium Chloride 20 Meq/100 Ml) 20 meq in 100 mls @ 50 mls/hr IVPB ONCE ONE Stop: 11/18/17 19:37 Pantoprazole Sodium (Protonix Ec Tab) 40 mg PO DAILY [facility] Last Admin: 11/18/17 09:45 Dose: 40 mg - Labs Labs: 11/18/17 06:30 11/16/17 19:27 PT 13.1 SECONDS (9.7-12.2) H 11/16/17 19:27 INR 1.2 11/16/17 19:27 APTT 34 SECONDS (21-34) 11/16/17 19:27 - Constitutional Appears: Well - Head Exam Head Exam: ATRAUMATIC, NORMAL INSPECTION, NORMOCEPHALIC - Eye Exam Eye Exam: EOMI, Normal appearance, PERRL Pupil Exam: NORMAL ACCOMODATION, PERRL - ENT Exam ENT Exam: Mucous Membranes Moist, Normal Exam - Neck Exam Neck Exam: Full ROM, Normal Inspection. absent: Lymphadenopathy - Respiratory Exam Respiratory Exam: Decreased Breath Sounds - Cardiovascular Exam Cardiovascular Exam: REGULAR RHYTHM, +S1, +S2 - GI/Abdominal Exam GI & Abdominal Exam: Soft, Diminished Bowel Sounds - Rectal Exam Rectal Exam: Deferred
[2017-11-18] MEDS ORDERED: Metoprolol 1 mg/ml Inj IVP ONE (21:15)
[2017-11-18 21:53] LABS: ALB/GLOB RATIO 0.6 (1.0-2.1); ALBUMIN 3.1 g/dL (3.5-5.0); ALT/SGPT 14 U/L (9-52); AST/SGOT 21 U/L (14-36); BLOOD UREA NITROGEN 14 mg/dL (7-17); GFR AFRICAN-AMERICAN > 60; GFR NON-AFRICAN AMERICAN > 60
--- NOTE | 2017-11-18 21:54 | CP.PCM.PN ---
Subjective - Date & Time of Evaluation Date of Evaluation: 11/18/17 Time of Evaluation: 09:30 - Subjective Subjective: House Doctor Note: I was paged for this patient with tachycardia in the 180s. Stat EKG revealed supraventricular tachycardia. Patient was placed on a monitor and Lopressor 2.5 mg IV followed by Adenosine 6 mg IV were given which converted the patient back to NSR which was confirmed with follow up EKG. Nursing staff notified admitting provider Dr. Nicholas Tapia. Boom Worker on the case Dr. Abrams was notified by me and requested morning labs as well as changing the patient's fluids to D5 NS @100cc/hr for 24 hours and adding Cardizem 30 mg PO Q6H with holding parameters. He also requested an echocardiogram as well. All order requests were carried out. Objective - Vital Signs/Intake and Output Vital Signs (last 24 hours): Temp Pulse Resp BP Pulse Ox 99.1 F 88 20 89/53 L 99 11/18/17 15:27 11/18/17 15:27 11/18/17 15:27 11/18/17 15:27 11/18/17 15:27 - Medications Medications: Current Medications Aspirin (Aspirin Chewable) 81 mg PO DAILY [facility] Last Admin: 11/18/17 09:45 Dose: 81 mg Benztropine Mesylate (Cogentin) 1 mg PO BID [facility] Last Admin: 11/18/17 17:51 Dose: 1 mg Enoxaparin Sodium (Lovenox) 40 mg SC DAILY [facility] Last Admin: 11/18/17 09:45 Dose: 40 mg Escitalopram Oxalate (Lexapro) 10 mg PO DAILY [facility] Last Admin: 11/18/17 09:42 Dose: 10 mg Ceftriaxone Sodium (Rocephin Iv 1 Gm Duplex) 50 mls @ 50 mls/30 min IVPB DAILY [facility] PRN Reason: Protocol Last Admin: 11/18/17 09:45 Dose: 50 mls/30 min Azithromycin 500 mg/ Sodium (Chloride) 250 mls @ 250 mls/hr IVPB Q24H [facility] PRN Reason: Protocol Last Admin: 11/18/17 00:16 Dose: 250 mls/hr Trimethoprim/Sulfamethoxazole (160 mg/ Dextrose) 250 mls @ 250 mls/hr IVPB Q8H [facility] PRN Reason: Protocol Last Admin: 11/18/17 17:24 Dose: 250 mls/hr Pantoprazole Sodium (Protonix Ec Tab) 40 mg PO DAILY [facility] Last Admin: 11/18/17 09:45 Dose: 40 mg - Labs Labs: 11/18/17 06:30 11/16/17 19:27 PT 13.1 SECONDS (9.7-12.2) H 11/16/17 19:27 INR 1.2 11/16/17 19:27 APTT 34 SECONDS (21-34) 11/16/17 19:27
[2017-11-18 22:04] LABS: CK-MB 0.34 ng/mL (0.0-3.38)
[2017-11-18] MEDS: Dextrose 5%/0.9% NS 1,000 ML IV SCH (23:30)
--- NOTE | 2017-11-18 23:48 | CP.PCM.PN ---
Subjective - Date & Time of Evaluation Date of Evaluation: 11/18/17 Time of Evaluation: 23:48 - Subjective Subjective: CHIEF COMPLAINTS TODAY : EVENTS NOTED. S/P VT. More awake and responsive. C/O COUGH Denies headache or any visual problems States has not taken her HIV meds for 3 months f/u at [facility]. ? ON COMPLERA. ROS. HEENT : N. Resp : +VE DRY COUGH , NO wheezing ,pleuritic CP ,or hemoptysis Cardio : No anginal CP, PND, orthopnea, palpitation GI : No abd.pain, n/v ,diarrhea or GI bleeding . 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 Musculoskel : No joint swelling , Derm : No rash Psych : Normal affect. Ext : No swelling ,calf pain PE. Pt. is alert awake in no distress. V.S As noted in the chart Head ,ear nose,throat and eyes : Normal. Neck : Supple with normal carotids. Lungs: SCATTERED RHONCHI Heart : S1 & S2 normal with S4. No murmur. Abd : Soft non tender with normal bowel sounds. Neuro : Moves all ext. with no localized deficit. Ext : No edema with intact pulses.Non tender calves Derm : No rashes or decubitus ulcer. LABS/RADIOLOGY: LABS REVIEWED BLOOD CULTURES NEGATIVE TO DATE. Objective - Vital Signs/Intake and Output Vital Signs (last 24 hours): Temp Pulse Resp BP Pulse Ox 99.1 F 88 20 89/53 L 99 11/18/17 15:27 11/18/17 15:27 11/18/17 15:27 11/18/17 15:27 11/18/17 15:27 - Medications Medications: Current Medications Aspirin (Aspirin Chewable) 81 mg PO DAILY [facility] Last Admin: 11/18/17 09:45 Dose: 81 mg Benztropine Mesylate (Cogentin) 1 mg PO BID [facility] Last Admin: 11/18/17 17:51 Dose: 1 mg Diltiazem HCl (Cardizem) 30 mg PO QID [facility] Last Admin: 11/18/17 23:27 Dose: 30 mg Enoxaparin Sodium (Lovenox) 40 mg SC DAILY [facility] Last Admin: 11/18/17 09:45 Dose: 40 mg Escitalopram Oxalate (Lexapro) 10 mg PO DAILY [facility] Last Admin: 11/18/17 09:42 Dose: 10 mg Ceftriaxone Sodium (Rocephin Iv 1 Gm Duplex) 50 mls @ 50 mls/30 min IVPB DAILY [facility] PRN Reason: Protocol Last Admin: 11/18/17 09:45 Dose: 50 mls/30 min Azithromycin 500 mg/ Sodium (Chloride) 250 mls @ 250 mls/hr IVPB Q24H [facility] PRN Reason: Protocol Last Admin: 11/18/17 00:16 Dose: 250 mls/hr Trimethoprim/Sulfamethoxazole (160 mg/ Dextrose) 250 mls @ 250 mls/hr IVPB Q8H [facility] PRN Reason: Protocol Last Admin: 11/18/17 17:24 Dose: 250 mls/hr Dextrose/Sodium Chloride (Dextrose 5%/0.9% Ns 1000 Ml) 1,000 mls @ 100 mls/hr IV .Q10H [facility] Stop: 11/19/17 22:00 Last Admin: 11/18/17 23:30 Dose: 100 mls/hr Pantoprazole Sodium (Protonix Ec Tab) 40 mg PO DAILY [facility] Last Admin: 11/18/17 09:45 Dose: 40 mg - Labs Labs: 11/18/17 06:30 11/18/17 21:37 PT 13.1 SECONDS (9.7-12.2) H 11/16/17 19:27 INR 1.2 11/16/17 19:27 APTT 34 SECONDS (21-34) 11/16/17 19:27 - Constitutional Appears: No Acute Distress - Head Exam Head Exam: NORMAL INSPECTION - Eye Exam Eye Exam: EOMI, PERRL - ENT Exam ENT Exam: Mucous Membranes Moist, Normal Oropharynx Additional comments: NO THRUSH. - Neck Exam Neck Exam: Normal Inspection. absent: Lymphadenopathy, Meningismus - Respiratory Exam Respiratory Exam: Clear to Ausculation Bilateral - Cardiovascular Exam Cardiovascular Exam: REGULAR RHYTHM, +S1, +S2 - GI/Abdominal Exam GI & Abdominal Exam: Soft, Normal Bowel Sounds - Extremities Exam Extremities Exam: absent: Calf Tenderness, Pedal Edema - Neurological Exam Neurological Exam: Awake, CN II-XII Intact, Oriented x3, Reflexes Normal - Psychiatric Exam Psychiatric exam: Normal Mood - Skin Skin Exam: Normal Color, Warm Assessment and Plan (1) HIV (human immunodeficiency virus infection) Status: Acute (2) Altered mental state Status: Acute (3) Fever Status: Acute (4) Pneumonia Status: Acute (5) Schizophrenia Status: Acute (6) Cocaine use disorder, severe, dependence Status: Acute - Assessment and Plan (Free Text) Plan: HIV W/U IN PROGRESS. ALL PSYCH MEDS ON HOLD. WILL NEED TO GET HER HAART RX INFO FROM [facility]OR PHARMACY SHE USES. SPUTUM CULTURE/GM STAIN. CONTINUE IV ZOSYN 3.375 EVERY 8 HOURLY 11/17/17 CONTINUE iv BACTRIM 160 MG TMP/SMX iv PIGGYBACK EVERY 8 HOURLY. 11/17/17. DC ZITHROMAX IN VIEW OF CARDIAC ARRHYTHMIA START IV DOXYCYCLINE 100MG IV Q 12HRLY. 11/19/17
[2017-11-19] MEDS: Azithromycin 500 MG in Sodium Chloride 0.9% 250 ML IVPB SCH (00:48)
[2017-11-19] MEDS: Sulfamethoxazole/Trimethoprim 160 MG in Dextrose 5% In Water 250 ML IVPB SCH ×3 (00:58→16:53)
[2017-11-19] MEDS: Dextrose 5%/0.9% NS 1,000 ML IV SCH ×2 (08:00→17:02)
[2017-11-19 08:47] LABS: BASO % 0.5 % (0.0-2.0); EOS % 0.8 % (0.0-4.0); HEMOGLOBIN 10.6 g/dL (11.0-16.0); LYMPH # 2.1 K/uL (1.0-4.3); LYMPH % 47.5 % (20.0-40.0); MEAN CELL VOLUME 84.1 fL (81.0-99.0); MEAN CORPUSCULAR HEMOGLOBIN 27.4 pg (27.0-31.0); MEAN CORPUSCULAR HGB CONC 32.6 g/dL (33.0-37.0); MEAN PLATELET VOLUME 7.8 fL (7.2-11.7); MONO # 0.4 K/uL (0.0-0.8); NEUT # 1.8 K/uL (1.8-7.0); NEUT % 42.2 % (50.0-75.0); NRBC % 0.1 % (0.0-2.0); RBC 3.88 Mil/uL (3.80-5.20); RED CELL DISTRIBUTION WIDTH 13.7 % (11.5-14.5); WHITE BLOOD COUNT 4.4 K/uL (4.8-10.8)
[2017-11-19 09:12] LABS: ALB/GLOB RATIO 0.7 (1.0-2.1); ALBUMIN 3.1 g/dL (3.5-5.0); ALT/SGPT 14 U/L (9-52); AST/SGOT 21 U/L (14-36); BLOOD UREA NITROGEN 10 mg/dL (7-17); CALCIUM 8.8 mg/dl (8.6-10.4); GFR AFRICAN-AMERICAN > 60; GFR NON-AFRICAN AMERICAN > 60
[2017-11-19] MEDS: cefTRIAXone IV 1 gm in Dextros 50 ML IVPB SCH (10:00)
[2017-11-19 10:41] LABS: BARBITURATES, UR NEGATIVE (NEGATIVE); BENZODIAZEPINES, UR NEGATIVE (NEGATIVE); OPIATES, UR NEGATIVE (NEGATIVE); PHENCYCLIDINE, UR NEGATIVE (NEGATIVE)
[2017-11-19] MEDS: Pantoprazole 40 mg EC Tab PO SCH (10:50)
[2017-11-19] MEDS: Enoxaparin 40 mg Syringe SC SCH (10:59)
--- NOTE | 2017-11-19 15:28 | CP.PCM.PN ---
Subjective - Date & Time of Evaluation Date of Evaluation: 11/19/17 Time of Evaluation: 12:40 - Subjective Subjective: clinically same Objective - Vital Signs/Intake and Output Vital Signs (last 24 hours): Temp Pulse Resp BP Pulse Ox 98.6 F 86 20 102/61 98 11/19/17 09:00 11/19/17 09:00 11/19/17 09:00 11/19/17 09:00 11/19/17 09:00 - Medications Medications: Current Medications Aspirin (Aspirin Chewable) 81 mg PO DAILY [facility] Last Admin: 11/19/17 11:10 Dose: 81 mg Benztropine Mesylate (Cogentin) 1 mg PO BID [facility] Last Admin: 11/19/17 10:59 Dose: 1 mg Diltiazem HCl (Cardizem) 30 mg PO QID [facility] Last Admin: 11/19/17 11:10 Dose: 30 mg Enoxaparin Sodium (Lovenox) 40 mg SC DAILY [facility] Last Admin: 11/19/17 10:59 Dose: 40 mg Escitalopram Oxalate (Lexapro) 10 mg PO DAILY [facility] Last Admin: 11/19/17 10:59 Dose: 10 mg Ceftriaxone Sodium (Rocephin Iv 1 Gm Duplex) 50 mls @ 50 mls/30 min IVPB DAILY [facility] PRN Reason: Protocol Last Admin: 11/19/17 10:00 Dose: 50 mls/30 min Trimethoprim/Sulfamethoxazole (160 mg/ Dextrose) 250 mls @ 250 mls/hr IVPB Q8H [facility] PRN Reason: Protocol Last Admin: 11/19/17 10:57 Dose: 250 mls/hr Dextrose/Sodium Chloride (Dextrose 5%/0.9% Ns 1000 Ml) 1,000 mls @ 100 mls/hr IV .Q10H [facility] Stop: 11/19/17 22:00 Last Admin: 11/19/17 08:00 Dose: 100 mls/hr Doxycycline Hyclate 100 mg/ (Sodium Chloride) 100 mls @ 100 mls/hr IVPB Q12H [facility] PRN Reason: Protocol Last Admin: 11/19/17 10:00 Dose: 100 mls/hr Pantoprazole Sodium (Protonix Ec Tab) 40 mg PO DAILY [facility] Last Admin: 11/19/17 10:50 Dose: 40 mg - Labs Labs: 11/19/17 08:40 11/19/17 08:40 PT 13.1 SECONDS (9.7-12.2) H 11/16/17 19:27 INR 1.2 11/16/17 19:27 APTT 34 SECONDS (21-34) 11/16/17 19:27 - Constitutional Appears: Well - Head Exam Head Exam: ATRAUMATIC, NORMAL INSPECTION, NORMOCEPHALIC - Eye Exam Eye Exam: EOMI, Normal appearance, PERRL Pupil Exam: NORMAL ACCOMODATION, PERRL - ENT Exam ENT Exam: Mucous Membranes Moist, Normal Exam - Neck Exam Neck Exam: Full ROM, Normal Inspection. absent: Lymphadenopathy - Respiratory Exam Respiratory Exam: Decreased Breath Sounds - Cardiovascular Exam Cardiovascular Exam: REGULAR RHYTHM, +S1, +S2 - GI/Abdominal Exam GI & Abdominal Exam: Soft, Diminished Bowel Sounds - Rectal Exam Rectal Exam: Deferred
--- NOTE | 2017-11-19 22:57 | CP.PCM.CON ---
History of Present Illness - History of Present Illness History of Present Illness: Patient seen and evaluated Episode of SVT On Cardizem stable Chest pain. Troponin negative Check ECHO and stress test Past Patient History - Infectious Disease Hx of Infectious Diseases: None - Tetanus Immunizations Tetanus Immunization: Unknown - Past Medical History & Family History Past Medical History?: Yes Past Family History: Reviewed and not pertinent - Past Social History Smoking Status: Heavy Smoker > 10 Cigarettes Daily - CARDIAC Hx Hypertension: No - PULMONARY Hx Respiratory Disorders: No Hx Tuberculosis: No - NEUROLOGICAL Hx Seizures: No - HEENT Hx HEENT Problems: No - RENAL Hx Chronic Kidney Disease: No - ENDOCRINE/METABOLIC Hx Endocrine Disorders: No - HEMATOLOGICAL/ONCOLOGICAL Hx Human Immunodeficiency Virus (HIV): Yes - INTEGUMENTARY Hx Dermatological Problems: No - MUSCULOSKELETAL/RHEUMATOLOGICAL Hx Musculoskeletal Disorders: No Hx Falls: No - GASTROINTESTINAL Hx Gastrointestinal Disorders: No - GENITOURINARY/GYNECOLOGICAL Hx Sexually Transmitted Disorders: No - PSYCHIATRIC Hx Anxiety: Yes Hx Bipolar Disorder: Yes Hx Paranoia: Yes Hx Schizophrenia: Yes Hx Substance Use: Yes (cocaine) - SURGICAL HISTORY Hx Amputation: Yes (R Big Toe) - ANESTHESIA Hx Anesthesia: Yes Hx Anesthesia Reactions: No Meds Allergies/Adverse Reactions: Allergies Allergy/AdvReac Type Severity Reaction Status Date / Time ibuprofen Allergy ANAPHYLAXIS Verified 10/17/17 19:41 - Medications Medications: Current Medications Aspirin (Aspirin Chewable) 81 mg PO DAILY [facility] Last Admin: 11/19/17 11:10 Dose: 81 mg Benztropine Mesylate (Cogentin) 1 mg PO BID [facility] Last Admin: 11/19/17 20:51 Dose: 1 mg Diltiazem HCl (Cardizem) 30 mg PO QID [facility] Last Admin: 11/19/17 22:17 Dose: Not Given Enoxaparin Sodium (Lovenox) 40 mg SC DAILY [facility] Last Admin: 11/19/17 10:59 Dose: 40 mg Escitalopram Oxalate (Lexapro) 10 mg PO DAILY [facility] Last Admin: 11/19/17 10:59 Dose: 10 mg Ceftriaxone Sodium (Rocephin Iv 1 Gm Duplex) 50 mls @ 50 mls/30 min IVPB DAILY [facility] PRN Reason: Protocol Last Admin: 11/19/17 10:00 Dose: 50 mls/30 min Trimethoprim/Sulfamethoxazole (160 mg/ Dextrose) 250 mls @ 250 mls/hr IVPB Q8H [facility] PRN Reason: Protocol Last Admin: 11/19/17 16:53 Dose: 250 mls/hr Doxycycline Hyclate 100 mg/ (Sodium Chloride) 100 mls @ 100 mls/hr IVPB Q12H [facility] PRN Reason: Protocol Last Admin: 11/19/17 22:18 Dose: 100 mls/hr Pantoprazole Sodium (Protonix Ec Tab) 40 mg PO DAILY [facility] Last Admin: 11/19/17 10:50 Dose: 40 mg Results - Vital Signs Recent Vital Signs: Last Vital Signs Temp 98.6 F 11/19/17 09:00 Pulse 86 11/19/17 09:00 Resp 20 11/19/17 09:00 BP 102/61 11/19/17 09:00 Pulse Ox 98 11/19/17 09:00 - Labs Result Diagrams: 11/19/17 08:40 11/19/17 08:40 Labs: Laboratory Results - last 24 hr 11/19/17 11/19/17 11/19/17 05:00 08:40 08:40 WBC 4.4 L RBC 3.88 Hgb 10.6 L Hct 32.6 L MCV 84.1 MCH 27.4 MCHC 32.6 L RDW 13.7 Plt Count 218 MPV 7.8 Neut % (Auto) 42.2 L Lymph % (Auto) 47.5 H [place] % (Auto) 9.0 Eos % (Auto) 0.8 Baso % (Auto) 0.5 Neut # (Auto) 1.8 Lymph # (Auto) 2.1 [place] # (Auto) 0.4 Eos # (Auto) 0.0 Baso # (Auto) 0.0 Sodium 142 Potassium 4.1 Chloride 111 H Carbon Dioxide 21 L Anion Gap 14 BUN 10 Creatinine 0.7 Est GFR ( Amer) > 60 Est GFR (Non-Af Amer) > 60 Random Glucose 130 H Calcium 8.8 Magnesium 1.9 Total Bilirubin 0.3 AST 21 ALT 14 Alkaline Phosphatase 63 Total Protein 7.8 Albumin 3.1 L Globulin 4.6 H Albumin/Globulin Ratio 0.7 L TSH 3rd Generation 1.99 Urine Opiates Screen Negative Urine Methadone Screen Negative Ur Barbiturates Screen Negative Ur Phencyclidine Scrn Negative Ur Amphetamines Screen Negative U Benzodiazepines Scrn Negative U Oth Cocaine Metabols Negative U Cannabinoids Screen Negative
--- NOTE | 2017-11-19 23:03 | CP.PCM.PN ---
Subjective - Date & Time of Evaluation Date of Evaluation: 11/19/17 Time of Evaluation: 14:10 - Subjective Subjective: Patient for stress test in am Comfortable Objective - Vital Signs/Intake and Output Vital Signs (last 24 hours): Temp Pulse Resp BP Pulse Ox 98.6 F 83 20 97/60 L 98 11/19/17 09:00 11/19/17 20:30 11/19/17 20:30 11/19/17 20:30 11/19/17 09:00 - Medications Medications: Current Medications Aspirin (Aspirin Chewable) 81 mg PO DAILY [facility] Last Admin: 11/19/17 11:10 Dose: 81 mg Benztropine Mesylate (Cogentin) 1 mg PO BID [facility] Last Admin: 11/19/17 20:51 Dose: 1 mg Diltiazem HCl (Cardizem) 30 mg PO QID [facility] Last Admin: 11/19/17 22:17 Dose: Not Given Enoxaparin Sodium (Lovenox) 40 mg SC DAILY [facility] Last Admin: 11/19/17 10:59 Dose: 40 mg Escitalopram Oxalate (Lexapro) 10 mg PO DAILY [facility] Last Admin: 11/19/17 10:59 Dose: 10 mg Ceftriaxone Sodium (Rocephin Iv 1 Gm Duplex) 50 mls @ 50 mls/30 min IVPB DAILY [facility] PRN Reason: Protocol Last Admin: 11/19/17 10:00 Dose: 50 mls/30 min Trimethoprim/Sulfamethoxazole (160 mg/ Dextrose) 250 mls @ 250 mls/hr IVPB Q8H [facility] PRN Reason: Protocol Last Admin: 11/19/17 16:53 Dose: 250 mls/hr Doxycycline Hyclate 100 mg/ (Sodium Chloride) 100 mls @ 100 mls/hr IVPB Q12H [facility] PRN Reason: Protocol Last Admin: 11/19/17 22:18 Dose: 100 mls/hr Pantoprazole Sodium (Protonix Ec Tab) 40 mg PO DAILY [facility] Last Admin: 11/19/17 10:50 Dose: 40 mg - Labs Labs: 11/19/17 08:40 11/19/17 08:40 PT 13.1 SECONDS (9.7-12.2) H 11/16/17 19:27 INR 1.2 11/16/17 19:27 APTT 34 SECONDS (21-34) 11/16/17 19:27
[2017-11-20] MEDS: Sulfamethoxazole/Trimethoprim 160 MG in Dextrose 5% In Water 250 ML IVPB SCH ×2 (07:59)
[2017-11-20 08:13] LABS: HEPATITIS B SURFACE AG Negative (NEGATIVE)
[2017-11-20 08:18] LABS: HEPATITIS A IGM NEGATIVE (NEGATIVE); HEPATITIS B CORE AB NEGATIVE (NEGATIVE)
[2017-11-20 08:18] LABS: OXYCODONE SCREEN negative
[2017-11-20 08:30] LABS: HEPATITIS C ANTIBODY NEGATIVE (NEGATIVE)
[2017-11-20] MEDS: cefTRIAXone IV 1 gm in Dextros 50 ML IVPB SCH (10:50)
[2017-11-20] MEDS: Pantoprazole 40 mg EC Tab PO SCH (10:53)
[2017-11-20] MEDS: Enoxaparin 40 mg Syringe SC SCH (10:53)
[2017-11-20 16:00] VITALS: BP 96/61; PULSE 68; TEMP 97.6; O2SAT 100
--- NOTE | 2017-11-20 17:04 | CARD ---
APPROVED REPORT EKG Measurement Heart [id number] IA [id number] [id number] <Conclusion> Normal sinus rhythm Prolonged QT Abnormal ECG
--- NOTE | 2017-11-21 02:48 | CARD ---
APPROVED REPORT EXAM: Two-dimensional and M-mode echocardiogram with Doppler and color Doppler. Other Information Quality : GoodRhythm : INDICATION Abnormal EKG/Arrhythmia Congestive Heart Failure HIV RISK FACTORS Hypertension Smoking 2D DIMENSIONS IVSd0.9 (0.7-1.1cm)LVDd4.2 (3.9-5.9cm) PWd0.7 (0.7-1.1cm)LVDs3.0 (2.5-4.0cm) FS (%) 27.8 %LVEF (%)54.2 (>50%) M-Mode DIMENSIONS RVDd2.51 (2.1-3.2cm)Left Atrium (MM)2.88 (2.5-4.0cm) IVSd0.91 (0.7-1.1cm)Aortic Root3.13 (2.2-3.7cm) LVDd4.68 (4.0-5.6cm)Aortic Cusp Exc.2.08 (1.5-2.0cm) PWd0.59 (0.7-1.1cm)FS (%) 40 % LVDs2.83 (2.0-3.8cm)LVEF (%)70 (>50%) Aortic Valve AI P 1/2 Mcve150im Mitral Valve MV E Szwubokk68.8cm/sMV A Nwlqyccs69.3cm/sE/A ratio1.2 TDI E/Lateral E'0.0E/Medial E'0.0 Tricuspid Valve TR Peak Chldtffm127cr/sTR Peak Gr.01mvDdAYYB22roGm LEFT VENTRICLE The left ventricle is normal size. There is normal left ventricular wall thickness. Left ventricle systolic function is normal. The Ejection Fraction is 65-70%. There is normal LV segmental wall motion. The left ventricular diastolic function is normal. No left ventricle thrombus noted on this study. RIGHT VENTRICLE The right ventricle is normal size. The right ventricular systolic function is normal. ATRIA The left atrium size is normal. The right atrium size is normal. AORTIC VALVE The aortic valve is mildly thickened. The aortic valve is trileaflet. There is mild aortic regurgitation. There is no aortic valvular stenosis. There is no aortic valvular vegetation. MITRAL VALVE Mitral annular calcification is mild. There is no evidence of mitral valve prolapse. There is no mitral valve stenosis. Mitral regurgitation is mild. TRICUSPID VALVE The tricuspid valve is normal in structure. There is mild to moderate tricuspid regurgitation. Right ventricular systolic pressure is estimated at 30-40 mmHg. There is no pulmonary hypertension. There is no tricuspid valve prolapse or vegetation. There is no tricuspid valve stenosis. PULMONIC VALVE The pulmonary valve is normal in structure. There is no pulmonic valvular regurgitation. GREAT VESSELS The aortic root is normal in size. The IVC is normal in size and collapses >50% with inspiration. PERICARDIAL EFFUSION There is no pericardial effusion. There is no pleural effusion. <Conclusion> The left ventricle is normal size. Left ventricle systolic function is normal. The Ejection Fraction is 65-70%. The left ventricular diastolic function is normal. The right ventricle is normal size. The right ventricular systolic function is normal. The left atrium size is normal. The right atrium size is normal. There is mild aortic regurgitation. Mitral regurgitation is mild. There is mild to moderate tricuspid regurgitation.
[2017-11-21 07:38] LABS: % CD4 (T HELPER CELL) 4 Percent (30-61); % CD8 (SUPPRESSOR T CELL) 87 Percent (12-42); ABSOLUTE CD4 CELLS 64 Cells/mcL (490-1740); ABSOLUTE CD8 CELLS 1375 Cells/mcL (180-1170); ABSOLUTE LYMPHOCYTES 1581 Cells/mcL (850-3900); HELPER/SUPPRESSOR RATIO 0.05 Ratio (0.86-5.00)
--- NOTE | 2017-11-21 08:17 | CARD ---
APPROVED REPORT Protocol: LEXISCAN Test Type: LEXISCAN STRESS Test Indications: CHEST PAIN Medical History: CHEST PAIN Target HR: 165 bpm Resting ECG: NSR Resting Heart Rate: 76 bpm Resting Blood Pressure: 128/80mmHg submaximum (85%): 140 bpm TEST SUMMARY PREINFSNHYPERV.16:[id number]/80.0. INFUSIONDOSE 100:300.00.01.075/.0. MSKCLYPDL73:[id number]/80.0. PROCEDURE Pharmacologic stress testing was performed using 0.4mg per 5ml of regadenoson given intravenously over 7-10 seconds. Reversal agent aminophyline 100 mg, given intravenously for Headache. POST EXERCISE Reason for Termination: Protocol Completed Target HR: No Max HR: 75 bpm 69% of Maximum Predicted HR: 165 bpm Exercise duration: 00:30 min:sec, 0 Stage Exercise capacity: 1.0METs Max Blood Pressure: 128/80mmHg Blood Pressure response to exercise: normal resting BP - appropriate response Heart Rate response to exercise: appropriate Chest Pain: No, none Angina index: 0 Arrhythmia: No, none ST Change: No, none Deviation: 0 mm INTERPRETATION Stress EKG Conclusion: NEGATIVE LEXISCAN STRESS TEST NORMAL BP RESPONSE TO LEXISCAN NUCLEAR STUDIES TO BE READ SEPARATELY EXAM: Myocardial Perfusion STRESS/REST Imaging Protocol The imaging protocol used to acquire images was Stress Tc-99m/rest Tc-99m 1 day Stress Spect myocardial perfusion imaging was performed in supine position 45 minutes following the injection of 13.2 mCi of Tc-99 Myoview. Gated Rest Spect was performed 42 minutes after intravenous 32.4 mCi Tc-99 Myoview injection. The images were gated to evaluate regional wall motion and calculate ventricular ejection fraction.Images were reconstructed using backfilter projection method in short horizontal and verticle long axis. Spect slices were generated. RESTING DATA EDV73.32syFD8.70L/min ESV19.00mlMyocardial Xqxt921.00g Av. Heart Rate68.00bpm EF74.00% STRESS DATA EDV81.69vjGK2.90L/min ESV24.00mlMyocardial Vkup586.00g EF70.00% Regional WT score at stress:0.00 Regional WM score at stress:0.00 Summed WT score at stress:3.00 Av. Heart Rate68.00bpmSummed WM score at stress:0.00 LV Perf. Quant 17 Seg. SSS0.00 17 Seg. SRS0.00 17 Seg. SDS0.00 Stress Defect Extent (% LAD)0.00Rest Defect Extent (% LAD)0.00Rev. Defect Extent (% LAD)0.00 Stress Defect Extent (% LCX)0.00Rest Defect Extent (% LCX)0.00Rev. Defect Extent (% LCX)0.00 Stress Defect Extent (% RCA)0.00Rest Defect Extent (% RCA)0.00Rev. Defect Extent (% RCA)0.00 Stress Defect Extent (% RAFY)0.00Rest Defect Extent (% RAFY)0.00Rev. Defect Extent (% RAFY)0.00 IMPRESSION Normal Myocardial Perfusion exercise stress study Left Ventricle LV Size/Shape: The left ventricle is normal size. LV Function:Left ventricle systolic function is normal. The Ejection Fraction is 70%. Regional Wall Motion:There is normal left ventricular wall motion. Metabolism/Perfusion Defects: There is no scan evidence of reversible ischemia noted. There are no perfusion/metabolism defects. Conclusion 1. There is no scan evidence of reversible ischemia noted. 2. Left ventricle systolic function is normal. 3. The Ejection Fraction is 70%.
== END 2017-11-20 17:00 | disposition left against medical advice (07) | DRG 975 ==
LOC: C.ER 18:17 → C.6T 21:20
PROVIDERS: ADMIT Internal Medicine Nephrology; ATTEND Internal Medicine Nephrology
DX: J18.9 Pneumonia, unspecified organism (principal); B20 Human immunodeficiency virus [HIV] disease; F14.20 Cocaine dependence, uncomplicated; J44.0 Chronic obstructive pulmonary disease with (acute) lower respiratory infection; I47.1 Supraventricular tachycardia; F20.9 Schizophrenia, unspecified; Z59.0 Homelessness; F17.210 Nicotine dependence, cigarettes, uncomplicated; J32.0 Chronic maxillary sinusitis; I50.9 Heart failure, unspecified

== ENCOUNTER 2017-12-17 08:53 | Emergency (ER) | payer MEDICARE, MEDICAID ==
[2017-12-17 08:54] VITALS: PULSE 90; BMI 21.1
--- NOTE | 2017-12-17 09:02 | C.PDOC ---
History Of Present Illness 57-YEAR-OLD FEMALE, PRESENTS TO THE EMERGENCY DEPARTMENT WITH COMPLAINTS OF SVT LOIN TRIMMER. PER EMS, PT FOUND IN SVT AND SBP @ 90. S/P ADENOSINE 6 MG LOIN TRIMMER NOW IN NSR. PT IMPROVED PER EMS. ADMISSION 11/2017 FOR SVT. S/P NUCLEAR STRESS, ECHO. EXAM NAD NONTOXIC CV RRR Time Seen by Provider: 12/17/17 08:57 History Per: Patient History/Exam Limitations: no limitations Past Medical History Reviewed: Historical Data, Nursing Documentation, Vital Signs Vital Signs: Last Vital Signs Temp 98.3 F 12/17/17 09:06 Pulse 102 H 12/17/17 09:06 Resp 18 12/17/17 09:06 BP 98/65 L 12/17/17 09:06 Pulse Ox 95 12/17/17 09:06 - Medical History PMH: Anxiety, Bipolar Disorder, HIV, Paranoia, Schizophrenia Denies: Diabetes, Hepatitis, HTN, Chronic Kidney Disease, Seizures, Sexually Transmitted Disease - [facility] Procedures GROUP PSYCHOTHERAPY (10/17/17) INDIVIDUAL PSYCHOTHERAPY, SUPPORTIVE (10/17/17) MEDICATION MANAGEMENT (10/17/17) MEDS MGMT FOR SUBSTANCE ABUSE TREATMENT, OTH REPL MED (10/17/17) Family History: States: No Known Family Hx - Social History Hx Tobacco Use: Yes Hx Alcohol Use: No Hx Substance Use: Yes (cocaine) - Immunization History Hx Tetanus Toxoid Vaccination: No Hx Influenza Vaccination: No Hx Pneumococcal Vaccination: No Review Of Systems Cardiovascular: Positive for: Other (SVT). Negative for: Chest Pain Respiratory: Negative for: Shortness of Breath Gastrointestinal: Negative for: Vomiting Physical Exam - Physical Exam Appears: Non-toxic, No Acute Distress Skin: Normal Color, Warm, Dry, No Rash Head: Normacephalic Eye(s): bilateral: PERRL Nose: Normal Oral Mucosa: Moist Lips: Normal Appearing Neck: Normal ROM Cardiovascular: Rhythm Regular, No Murmur Respiratory: Normal Breath Sounds, No Accessory Muscle Use Gastrointestinal/Abdominal: Soft, No Tenderness Extremity: Normal ROM, No Deformity, No Swelling Neurological/Psych: Oriented x3, Normal Speech ED Course And Treatment - Laboratory Results Result Diagrams: 12/17/17 09:32 12/17/17 09:32 ECG: Interpreted By Me ECG Rhythm: Sinus Tachycardia ECG Interpretation: Normal Rate From EC Progress - Re-Evaluation Re-evaluation Note: 12/17/17 11:16 APPEARS COMFORTABLE NAD REMAINS NSR. OLD RECORDS REVIEWED: PT BASELINE SBP AVG 98. - Data Reviewed Data Reviewed: Lab, Diagnostic imaging, EKG, Old records Disposition Counseled Patient/Family Regarding: Studies Performed, Diagnosis, Need For Followup - Disposition Referrals: Isiah Tapia MD [Staff Provider] - Disposition: HOME/ ROUTINE Disposition Time: 11:17 Condition: IMPROVED Instructions: Supraventricular Tachycardia (SVT) - Clinical Impression Clinical Impression: SVT (supraventricular tachycardia) - Scribe Statement The provider has reviewed the documentation as recorded by the Scribe (Renato Damon) All medical record entries made by the Scribe were at my direction and personally dictated by me. I have reviewed the chart and agree that the record accurately reflects my personal performance of the history, physical exam, medical decision making, and the department course for this patient. I have also personally directed, reviewed, and agree with the discharge instructions and disposition.
[2017-12-17 09:14] VITALS: TEMP 98.3
[2017-12-17 09:40] LABS: BASO % 0.2 % (0.0-2.0); EOS % 0.7 % (0.0-4.0); HEMOGLOBIN 13.1 g/dL (11.0-16.0); LYMPH # 2.4 K/uL (1.0-4.3); LYMPH % 46.2 % (20.0-40.0); MEAN CELL VOLUME 84.3 fL (81.0-99.0); MEAN CORPUSCULAR HEMOGLOBIN 27.8 pg (27.0-31.0); MEAN PLATELET VOLUME 7.7 fL (7.2-11.7); MONO # 0.6 K/uL (0.0-0.8); MONO % 11.9 % (0.0-10.0); NEUT # 2.1 K/uL (1.8-7.0); NRBC % 0.1 % (0.0-2.0); RBC 4.71 Mil/uL (3.80-5.20); WHITE BLOOD COUNT 5.1 K/uL (4.8-10.8)
[2017-12-17 10:34] LABS: ALB/GLOB RATIO 0.7 (1.0-2.1); ALBUMIN 3.8 g/dL (3.5-5.0); ALT/SGPT 28 U/L (9-52); AST/SGOT 43 U/L (14-36); BLOOD UREA NITROGEN 13 mg/dL (7-17); CALCIUM 9.1 mg/dl (8.6-10.4); GFR AFRICAN-AMERICAN > 60; GFR NON-AFRICAN AMERICAN > 60
--- NOTE | 2017-12-17 10:56 | RAD ---
PROCEDURE: CHEST RADIOGRAPH, 1 VIEW HISTORY: Palpations COMPARISON: 11/16/2017 FINDINGS: LUNGS: Interval improvement of right lower lobe infiltrate Minor bibasilar atelectasis. There is a small calcified granuloma again seen right lung apex. PLEURA: No pneumothorax or pleural fluid seen. CARDIOVASCULAR: Normal. OSSEOUS STRUCTURES: No significant abnormalities. VISUALIZED UPPER ABDOMEN: Normal. OTHER FINDINGS: None. IMPRESSION: Interval improvement of right lower lobe infiltrate Minor bibasilar atelectasis. There is a small calcified granuloma again seen right lung apex.
[2017-12-17 11:51] VITALS: BP 97/59; PULSE 79; RESP 20; O2SAT 99
--- NOTE | 2017-12-18 16:19 | CARD ---
APPROVED REPORT EKG Measurement Heart Tiop701BYPE NE 132P-9 [id number] <Conclusion> Sinus tachycardia Otherwise normal ECG
== END 2017-12-17 12:05 | disposition home or self-care (01) ==
LOC: C.ER 08:53
DX: I47.1 Supraventricular tachycardia (principal); F20.9 Schizophrenia, unspecified; Z72.0 Tobacco use
CPT/HCPCS: 71045; 80053; 84484; 85025; 93005; 99285; G0480

== ENCOUNTER 2018-06-24 20:54 | Inpatient (IN) | payer MEDICARE, MEDICAID ==
[2018-06-24 20:54] VITALS: PULSE 90; BMI 21.1
[2018-06-24] MEDS ORDERED: Sodium Chloride 0.9% 1,000 ML IV ONE ×3 (22:11→23:45)
[2018-06-24] MEDS ORDERED: Cefepime IV 2 gm in Dextrose 2 GM/100 ML BAG IVPB STA (22:16)
[2018-06-24] MEDS ORDERED: Sodium Chloride 0.9% 1,000 ML ONE (22:38)
[2018-06-24 22:46] LABS: BASO % 0.1 % (0.0-2.0); HEMOGLOBIN 10.7 g/dL (11.0-16.0); LYMPH # 0.2 K/uL (1.0-4.3); LYMPH % 6.6 % (20.0-40.0); MEAN CELL VOLUME 83.5 fL (81.0-99.0); MEAN CORPUSCULAR HEMOGLOBIN 27.5 pg (27.0-31.0); MEAN PLATELET VOLUME 8.7 fL (7.2-11.7); MONO # 0.5 K/uL (0.0-0.8); NEUT # 2.9 K/uL (1.8-7.0); NEUT % 79.3 % (50.0-75.0); NRBC % 0.1 % (0.0-2.0); PLATELET COUNT 279 K/uL (130-400); RBC 3.88 Mil/uL (3.80-5.20); RED CELL DISTRIBUTION WIDTH 14.4 % (11.5-14.5); WHITE BLOOD COUNT 3.6 K/uL (4.8-10.8)
[2018-06-24 22:46] LABS: VENOUS BLOOD GAS BASE EXCESS -5.3 mmol/L (0.0-2.0); VENOUS BLOOD GAS PCO2 44 mmHg (40-60); VENOUS BLOOD GAS PO2 22 mm/Hg (30-55); VENOUS BLOOD PH 7.29 (7.32-7.43)
[2018-06-24 22:47] LABS: LYMPHOCYTE 6 % (20-40); MONOCYTE 12 % (0-10); NEUTROPHIL 82 % (50-75); PLATELET ESTIMATE NORMAL (NORMAL); TOTAL CELLS COUNTED 100
[2018-06-24 22:52] LABS: INR 1.2; PROTHROMBIN TIME 13.4 SECONDS (9.7-12.2)
--- NOTE | 2018-06-24 22:54 | C.PDOC ---
History Of Present Illness 57 year old female with PMHx of schizophrenia, HIV, and bipolar disorder presents to the ED BIBA status post being found outside on the curb shivering. Patient arrived tachycardic and SVT. Denies any sore throat, fever, chills, cough, SOB, or any other symptoms. Time Seen by Provider: 06/24/18 21:56 Chief Complaint (Nursing): Medical Clearance History Per: Patient, EMS History/Exam Limitations: no limitations Onset/Duration Of Symptoms: Hrs Current Symptoms Are (Timing): Still Present Past Medical History Reviewed: Historical Data, Nursing Documentation, Vital Signs Vital Signs: Last Vital Signs Temp 103.0 F H 06/24/18 22:28 Pulse 234 H 06/24/18 21:35 Resp 28 H 06/24/18 21:35 BP 103/64 06/24/18 22:10 Pulse Ox 92 L 06/24/18 21:35 - Medical History PMH: Anxiety, Bipolar Disorder, HIV, Paranoia, Schizophrenia Denies: Diabetes, Hepatitis, HTN, Chronic Kidney Disease, Seizures, Sexually Transmitted Disease Surgical History: No Surg Hx - [facility] Procedures GROUP PSYCHOTHERAPY (10/17/17) INDIVIDUAL PSYCHOTHERAPY, SUPPORTIVE (10/17/17) MEDICATION MANAGEMENT (10/17/17) MEDS MGMT FOR SUBSTANCE ABUSE TREATMENT, OTH REPL MED (10/17/17) Family History: States: No Known Family Hx, Unknown Family Hx - Social History Hx Tobacco Use: Yes Hx Alcohol Use: No Hx Substance Use: Yes (cocaine) - Immunization History Hx Tetanus Toxoid Vaccination: No Hx Influenza Vaccination: No Hx Pneumococcal Vaccination: No Review Of Systems Except As Marked, All Systems Reviewed And Found Negative. Constitutional: Negative for: Fever, Chills ENT: Negative for: Throat Pain Respiratory: Negative for: Cough, Shortness of Breath Physical Exam - Physical Exam Appears: Non-toxic Skin: Warm, Dry, No Rash Head: Normacephalic Eye(s): bilateral: Normal Inspection Nose: Normal Oral Mucosa: Dry, Other (pink) Neck: Normal ROM, Supple Chest: Symmetrical Cardiovascular: Rhythm Regular, Other (tachycardic) Respiratory: Rales (bibasilar crackles b/l) Gastrointestinal/Abdominal: Soft, No Tenderness Extremity: Normal ROM Neurological/Psych: Oriented x3, Normal Speech Gait: Steady ED Course And Treatment - Laboratory Results Result Diagrams: 07/02/18 06:05 07/02/18 06:03 ECG: Interpreted By Me, Viewed By Me ECG Rhythm: SVT ECG Interpretation: Abnormal Rate From EC O2 Sat by Pulse Oximetry: 92 (RA) Pulse Ox Interpretation: Normal Medical Decision Making Medical Decision Making: Plan - Bloodwork - EKG - CXR - Tylenol 975mg PO - Adenosine 6mg IVP - IV fluids - Cefepime IVPB - O2 via NC - UA Results: EKG after Adenosine 6mg IVP - Sinus Tachycardia, 131 bpm, Normal intervals. Normal axis. No ST elevations. Labs - Hgb 10.7, BMP 29.8, Magnesium 2.7, AST 64, Creatinine 1.5. [address] Tapia, IM. Agrees to admit patient under his service. 2340 Patient is SVT. Administered Adenosine 6mg IVP. 2348 Patient still SVT. Administered Adenosine 12mg IVP. 2350 Patient now hypotensive, Dr. Zhou, [facility] evaluating patient at bedside, recommends Cardizem 5mg every 10 minutes. Patient will be admitted to ICU. Disposition - Disposition Disposition: HOSPITALIZED Disposition Time: 23:50 Condition: FAIR - Clinical Impression Clinical Impression: SVT (supraventricular tachycardia), ARF (acute renal failure), Anemia - Scribe Statement The provider has reviewed the documentation as recorded by the Scribkaitlyn Stallings All medical record entries made by the Scribe were at my direction and per sonally dictated by me. I have reviewed the chart and agree that the record accurately reflects my personal performance of the history, physical exam, medical decision making, and the department course for this patient. I have also personally directed, reviewed, and agree with the discharge instructions and disposition.
[2018-06-24 23:03] LABS: ALB/GLOB RATIO 0.7 (1.0-2.1); ALBUMIN 3.4 g/dL (3.5-5.0); CALCIUM 8.4 mg/dl (8.6-10.4)
[2018-06-24 23:17] LABS: TROPONIN I 0.054 ng/mL (0.00-0.120)
[2018-06-24 23:34] LABS: HCG,QUALITATIVE URINE NEGATIVE (NEGATIVE); SQUAMOUS EPITHIAL 1 /hpf (0-5); URINE BACTERIA OCC (<OCC); URINE BILIRUBIN NEGATIVE (NEGATIVE); URINE BLOOD 2+ (NEGATIVE); URINE CLARITY Hazy (Clear); URINE COLOR Yellow (YELLOW); URINE GLUCOSE (UA) NORMAL (Normal); URINE LEUKOCYTE ESTERASE NEG Leu/uL (Negative); URINE PROTEIN 2+ mg/dL (NEGATIVE); URINE UROBILINOGEN NORMAL mg/dL (0.2-1.0)
[2018-06-24 23:45] LABS: BARBITURATES, UR NEGATIVE (NEGATIVE); BENZODIAZEPINES, UR NEGATIVE (NEGATIVE); OPIATES, UR NEGATIVE (NEGATIVE); PHENCYCLIDINE, UR NEGATIVE (NEGATIVE)
[2018-06-25] MEDS ORDERED: Metoprolol 1 mg/ml Inj IVP ONE (00:15)
[2018-06-25] MEDS ORDERED: Metoprolol 1 mg/ml Inj ONE (00:16)
[2018-06-25] MEDS ORDERED: Sodium Chloride 0.9% 1,000 ML IV ONE ×2 (00:19→02:35)
[2018-06-25] MEDS ORDERED: Sodium Chloride 0.9% 500 ML IV ONE (00:19)
[2018-06-25 00:54] LABS: ARTERIAL BLOOD GAS HCO3 17.6 mmol/L (21-28); ARTERIAL BLOOD GAS O2 SAT 96.7 % (95-98); ARTERIAL BLOOD GAS PCO2 38 mm/Hg (35-45); ARTERIAL BLOOD GAS PH 7.26 (7.35-7.45); ARTERIAL BLOOD GAS PO2 89 mm/Hg (80-100); ARTERIAL BLOOD GAS TCO2 18.3 mmol/L (22-28)
[2018-06-25] MEDS: Sulfamethoxazole/Trimethoprim 240 MG in Dextrose 5% In Water 250 ML IVPB SCH ×5 (01:15→23:33)
--- NOTE | 2018-06-25 03:03 | CP.PCM.CON ---
History of Present Illness - History of Present Illness History of Present Illness: 57 F with h/o schizophrenia, h/o svt, HIV/AIDS, non compliance with the treatment, tobacco, cocaine abuse, as per information available in the chart as patient was sob and had difficulty in speaking due to dry mouth, she was found in grocery store, sob and EMS called. In ER patient's HR in mid 200s, she was treated with adenosine and initially responded to sinus rhythm but then reverted back and would not respond. She was found to be dehydrated, hypotensive, b/l PNA on the CXR, increased RR, OSVALDO, urine showing cocaine +. In ER I gave her cardizem 5mg x2, followed by metoprolol 2.5mg iv, which broke her rhythm to sinus, still increased RR CT chest done showed motion artifect, multilobar infiltrates, she was dry as well on exam during my eval. PMH as above Family history not contributory Allergies reviewed Meds unknown at time of exam Social tobacco abuse, cocaine abuse Review of Systems - Review of Systems All systems: reviewed and no additional remarkable complaints except (HPI) Past Patient History - Infectious Disease Hx of Infectious Diseases: None - Tetanus Immunizations Tetanus Immunization: Unknown - Past Medical History & Family History Past Medical History?: Yes - Past Social History Smoking Status: Heavy Smoker > 10 Cigarettes Daily Drugs: Cocaine - CARDIAC Hx Hypertension: No - PULMONARY Hx Respiratory Disorders: No Hx Tuberculosis: No - NEUROLOGICAL Hx Seizures: No - HEENT Hx HEENT Problems: No - RENAL Hx Chronic Kidney Disease: No - ENDOCRINE/METABOLIC Hx Endocrine Disorders: No - HEMATOLOGICAL/ONCOLOGICAL Hx Human Immunodeficiency Virus (HIV): Yes - INTEGUMENTARY Hx Dermatological Problems: No - MUSCULOSKELETAL/RHEUMATOLOGICAL Hx Musculoskeletal Disorders: No Hx Falls: No - GASTROINTESTINAL Hx Gastrointestinal Disorders: No - GENITOURINARY/GYNECOLOGICAL Hx Sexually Transmitted Disorders: No - PSYCHIATRIC Hx Anxiety: Yes Hx Bipolar Disorder: Yes Hx Paranoia: Yes Hx Schizophrenia: Yes Hx Substance Use: Yes (cocaine) - SURGICAL HISTORY Hx Amputation: Yes (R Big Toe) - ANESTHESIA Hx Anesthesia: Yes Hx Anesthesia Reactions: No Meds Allergies/Adverse Reactions: Allergies Allergy/AdvReac Type Severity Reaction Status Date / Time ibuprofen Allergy ANAPHYLAXIS Verified 10/17/17 19:41 - Medications Medications: Current Medications Acetaminophen (Tylenol 325mg Tab) 975 mg PO ONCE PRN PRN Reason: Fever >100.4 F Last Admin: 06/24/18 22:28 Dose: 975 mg Heparin Sodium (Porcine) (Heparin) 5,000 units SC Q12 K[facility]I Trimethoprim/Sulfamethoxazole (240 mg/ Dextrose) 250 mls @ 250 mls/hr IVPB Q6H [facility]; Protocol Last Admin: 06/25/18 01:15 Dose: 250 mls/hr Vancomycin HCl 1 gm/ Sodium (Chloride) 250 mls @ 166.7 mls/hr IVPB Q24H [facility]; Protocol Lactated Ringer's (Lactated Ringer's) 1,000 mls @ 100 mls/hr IV .Q10H [facility] Cefepime HCl 1 gm/ Dextrose 50 mls @ 100 mls/hr IVPB Q8H [facility]I; Protocol Methylprednisolone (Solu-Medrol) 40 mg IVP Q12H [facility] Pantoprazole Sodium (Protonix Ec Tab) 40 mg PO DAILY K[facility]I Physical Exam - Additional Findings Additional findings: * HEENT NAILA, no thrush * Neck Supple * Chest b/l some rattling noise in lower lobes, no wheezing, RR in 40's * CVS sinus vs MAT * PA soft, nt bs present * Ext no edema * Skin dry, reduced turgor * [employer] awake oriented x3 no fnd * Results - Vital Signs Recent Vital Signs: Last Vital Signs Temp 100.0 F H 06/24/18 23:55 Pulse 230 H 06/24/18 22:00 Resp 28 H 06/24/18 22:00 BP 103/64 06/24/18 22:10 Pulse Ox 92 L 06/25/18 00:06 - Labs Result Diagrams: 06/24/18 22:42 06/24/18 22:42 Labs: Laboratory Results - last 24 hr 06/24/18 06/24/18 06/24/18 22:40 22:42 22:42 WBC 3.6 L RBC 3.88 Hgb 10.7 L D Hct 32.4 L MCV 83.5 MCH 27.5 MCHC 33.0 RDW 14.4 Plt Count 279 MPV 8.7 Neut % (Auto) 79.3 H Lymph % (Auto) 6.6 L Fleming % (Auto) 14.0 H Eos % (Auto) 0.0 Baso % (Auto) 0.1 Neut # (Auto) 2.9 Lymph # (Auto) 0.2 L Fleming # (Auto) 0.5 Eos # (Auto) 0.0 Baso # (Auto) 0.0 Neutrophils % (Manual) 82 H Lymphocytes % (Manual) 6 L Monocytes % (Manual) 12 H Platelet Estimate Normal PT INR APTT Puncture Site pCO2 pO2 22 L HCO3 ABG pH ABG Total CO2 ABG O2 Saturation ABG Base Excess Blayne Test ABG Potassium VBG pH 7.29 L VBG pCO2 44 VBG HCO3 19.0 VBG Total CO2 22.6 VBG O2 Sat (Calc) 31.0 L VBG Base Excess -5.3 L VBG Potassium 3.2 L Sodium 141.0 140 Chloride 111.0 H 110 H Glucose 102 Lactate 2.1 Liter Flow Potassium 3.5 L Carbon Dioxide 21 L Anion Gap 13 BUN 64 H Creatinine 1.5 H Est GFR ( Amer) 44 Est GFR (Non-Af Amer) 36 Random Glucose 114 H Calcium 8.4 L Phosphorus 2.1 L Magnesium 2.7 H Total Bilirubin 0.6 AST 64 H D ALT 46 Alkaline Phosphatase 84 Troponin I 0.0540 NT-Pro-B Natriuret Pep 2980 H Total Protein 8.4 H Albumin 3.4 L Globulin 4.9 H Albumin/Globulin Ratio 0.7 L Arterial Blood Potassium Venous Blood Potassium 3.2 L Urine Color Urine Clarity Urine pH Ur Specific [place] Urine Protein Urine Glucose (UA) Urine Ketones Urine Blood Urine Nitrate Urine Bilirubin Urine Urobilinogen Ur Leukocyte Esterase Urine WBC (Auto) Urine RBC (Auto) Ur Squamous Epith Cells Urine Bacteria Hyaline Casts Urine HCG, Qual Urine Opiates Screen Urine Methadone Screen Ur Barbiturates Screen Ur Phencyclidine Scrn Ur Amphetamines Screen U Benzodiazepines Scrn U Oth Cocaine Metabols U Cannabinoids Screen 06/24/18 06/24/18 06/24/18 22:42 23:25 23:25 WBC RBC Hgb Hct MCV MCH MCHC RDW Plt Count MPV Neut % (Auto) Lymph % (Auto) Fleming % (Auto) Eos % (Auto) Baso % (Auto) Neut # (Auto) Lymph # (Auto) Fleming # (Auto) Eos # (Auto) Baso # (Auto) Neutrophils % (Manual) Lymphocytes % (Manual) Monocytes % (Manual) Platelet Estimate PT 13.4 H INR 1.2 APTT 29 Puncture Site pCO2 pO2 HCO3 ABG pH ABG Total CO2 ABG O2 Saturation ABG Base Excess Blayne Test ABG Potassium VBG pH VBG pCO2 VBG HCO3 VBG Total CO2 VBG O2 Sat (Calc) VBG Base Excess VBG Potassium Sodium Chloride Glucose Lactate Liter Flow Potassium Carbon Dioxide Anion Gap BUN Creatinine Est GFR ( Amer) Est GFR (Non-Af Amer) Random Glucose Calcium Phosphorus Magnesium Total Bilirubin AST ALT Alkaline Phosphatase Troponin I NT-Pro-B Natriuret Pep Total Protein Albumin Globulin Albumin/Globulin Ratio Arterial Blood Potassium Venous Blood Potassium Urine Color Yellow Urine Clarity Hazy Urine pH 6.0 Ur Specific [place] 1.019 Urine Protein 2+ H Urine Glucose (UA) Normal Urine Ketones Negative Urine Blood 2+ H Urine Nitrate Negative Urine Bilirubin Negative Urine Urobilinogen Normal Ur Leukocyte Esterase Neg Urine WBC (Auto) 3 Urine RBC (Auto) 12 H Ur Squamous Epith Cells 1 Urine Bacteria Occ H Hyaline Casts 3-5 H Urine HCG, Qual Negative Urine Opiates Screen Negative Urine Methadone Screen Negative Ur Barbiturates Screen Negative Ur Phencyclidine Scrn Negative Ur Amphetamines Screen Negative U Benzodiazepines Scrn Negative U Oth Cocaine Metabols Positive H U Cannabinoids Screen Negative 06/25/18 00:43 WBC RBC Hgb Hct MCV MCH MCHC RDW Plt Count MPV Neut % (Auto) Lymph % (Auto) Fleming % (Auto) Eos % (Auto) Baso % (Auto) Neut # (Auto) Lymph # (Auto) Fleming # (Auto) Eos # (Auto) Baso # (Auto) Neutrophils % (Manual) Lymphocytes % (Manual) Monocytes % (Manual) Platelet Estimate PT INR APTT Puncture Site R brac pCO2 38 pO2 89 HCO3 17.6 L ABG pH 7.26 L ABG Total CO2 18.3 L ABG O2 Saturation 96.7 ABG Base Excess -9.3 L Blayne Test Na ABG Potassium 3.2 L VBG pH VBG pCO2 VBG HCO3 VBG Total CO2 VBG O2 Sat (Calc) VBG Base Excess VBG Potassium Sodium 140.0 Chloride 119.0 H Glucose 123 H Lactate 1.0 Liter Flow 3.0 Potassium Carbon Dioxide Anion Gap BUN Creatinine Est GFR ( Amer) Est GFR (Non-Af Amer) Random Glucose Calcium Phosphorus Magnesium Total Bilirubin AST ALT Alkaline Phosphatase Troponin I NT-Pro-B Natriuret Pep Total Protein Albumin Globulin Albumin/Globulin Ratio Arterial Blood Potassium 3.2 L Venous Blood Potassium Urine Color Urine Clarity Urine pH Ur Specific [place] Urine Protein Urine Glucose (UA) Urine Ketones Urine Blood Urine Nitrate Urine Bilirubin Urine Urobilinogen Ur Leukocyte Esterase Urine WBC (Auto) Urine RBC (Auto) Ur Squamous Epith Cells Urine Bacteria Hyaline Casts Urine HCG, Qual Urine Opiates Screen Urine Methadone Screen Ur Barbiturates Screen Ur Phencyclidine Scrn Ur Amphetamines Screen U Benzodiazepines Scrn U Oth Cocaine Metabols U Cannabinoids Screen Assessment & Plan - Assessment and Plan (Free Text) Assessment: * Multilobar pna * Sepsis * HIV/AIDS, noncompliance * SVT, MAT * OSVALDO * Dehydration * Hypotension * Cocaine abuse * Schizopherenia * Immunochrompomised. Plan: * Cefepime, vanco, bactrim * IV steroid * prn, betablocker to control rhythm * CD4 panel * IVF aggressive * GI/DVT prophylaxis * Admit to ICU, see orders for detail.
[2018-06-25] MEDS ORDERED: Lactated Ringer's 1,000 ML IV ONE ×3 (03:27→07:47)
[2018-06-25] MEDS ORDERED: Lactated Ringer's 1,000 ML ONE (03:40)
[2018-06-25] MEDS ORDERED: Dexamethasone 4 mg/1 ml IV STA (04:02)
[2018-06-25] MEDS ORDERED: Dexamethasone 4 mg/1 ml ONE (04:26)
[2018-06-25 05:17] LABS: VENOUS BLOOD GAS BASE EXCESS -11.1 mmol/L (0.0-2.0); VENOUS BLOOD GAS PCO2 44 mmHg (40-60); VENOUS BLOOD GAS PO2 50 mm/Hg (30-55); VENOUS BLOOD PH 7.19 (7.32-7.43)
[2018-06-25 05:26] LABS: BASO % 0.1 % (0.0-2.0); HEMOGLOBIN 8.5 g/dL (11.0-16.0); LYMPH # 0.4 K/uL (1.0-4.3); LYMPH % 8.8 % (20.0-40.0); MEAN CELL VOLUME 85.2 fL (81.0-99.0); MEAN CORPUSCULAR HEMOGLOBIN 26.9 pg (27.0-31.0); MEAN CORPUSCULAR HGB CONC 31.5 g/dL (33.0-37.0); MEAN PLATELET VOLUME 9.2 fL (7.2-11.7); MONO # 0.5 K/uL (0.0-0.8); MONO % 10.6 % (0.0-10.0); NEUT # 3.5 K/uL (1.8-7.0); NEUT % 80.5 % (50.0-75.0); PLATELET COUNT 206 K/uL (130-400); RBC 3.18 Mil/uL (3.80-5.20); RED CELL DISTRIBUTION WIDTH 14.3 % (11.5-14.5); WHITE BLOOD COUNT 4.3 K/uL (4.8-10.8)
[2018-06-25 05:50] LABS: ALB/GLOB RATIO 0.6 (1.0-2.1); ALBUMIN 2.4 g/dL (3.5-5.0); ALT/SGPT 39 U/L (9-52); AST/SGOT 56 U/L (14-36); BLOOD UREA NITROGEN 49 mg/dL (7-17); CALCIUM 6.9 mg/dl (8.6-10.4); GFR NON-AFRICAN AMERICAN > 60
[2018-06-25] MEDS: Lactated Ringer's 1,000 ML IV SCH ×5 (06:07→12:33)
[2018-06-25 08:46] LABS: ANISOCYTOSIS SLIGHT; BANDS 35 % (0-2); BURR CELLS SLIGHT; HYPOCHROMIC SLIGHT; LYMPHOCYTE 6 % (20-40); MONOCYTE 14 % (0-10); NEUTROPHIL 45 % (50-75); OVALOCYTES SLIGHT; PLATELET ESTIMATE NORMAL (NORMAL); POIKILOCYTOSIS SLIGHT; TOTAL CELLS COUNTED 100
--- NOTE | 2018-06-25 09:06 | RAD ---
Date of service: 06/24/2018 HISTORY: Pneumonia COMPARISON: None available. FINDINGS: LUNGS: Diffuse patchy consolidative opacity seen throughout both lungs with associated moderate to severe venous congestion. PLEURA: No significant pleural effusion identified, no pneumothorax apparent. CARDIOVASCULAR: No aortic atherosclerotic calcification present. Tortuous ectatic aorta. Normal cardiac size. OSSEOUS STRUCTURES: No significant abnormalities. VISUALIZED UPPER ABDOMEN: Normal. OTHER FINDINGS: None. IMPRESSION: Diffuse patchy consolidative opacity seen throughout both lungs with associated moderate to severe venous congestion.
[2018-06-25] MEDS ORDERED: Pantoprazole 40 mg EC Tab PO SCH (10:00)
[2018-06-25] MEDS ORDERED: Lactated Ringer's 1,000 ML IV SCH (11:00)
--- NOTE | 2018-06-25 11:05 | CP.CCUPN ---
CCU Subjective - Physician Review Subjective (Free Text): 06/25/18 11:01 Pt seen and examined at bedside. Pt unable to provide adequate ROS but responds to simple questions. CCU Objective - Vital Signs / Intake & Output Vital Signs (Last 4 hours): Vital Signs Temp Pulse Resp BP Pulse Ox 06/25/18 10:45 55 L 06/25/18 10:06 62 36 H 75/50 L 100 06/25/18 10:05 95.9 F L 67 32 H 75/50 L 06/25/18 10:00 70 35 H 100 06/25/18 09:51 70 35 H 73/49 L 100 06/25/18 09:50 95.8 F L 72 39 H 73/49 L 100 06/25/18 09:36 69 38 H 74/47 L 100 06/25/18 09:35 96.0 F L 68 30 H 72/51 L 06/25/18 09:32 60 34 H 72/51 L 100 06/25/18 09:17 68 31 H 84/55 L 100 06/25/18 09:02 61 33 H 80/50 L 100 06/25/18 09:00 95.2 F L 63 33 H 100 06/25/18 08:47 69 32 H 77/40 L 98 06/25/18 08:32 73 28 H 71/46 L 96 06/25/18 08:17 74 39 H 70/43 L 100 06/25/18 08:02 70 33 H 76/44 L 99 06/25/18 08:00 95.7 F L 68 35 H 100 06/25/18 07:47 69 38 H 73/49 L 100 06/25/18 07:36 69 37 H 76/49 L 100 06/25/18 07:32 72 34 H 73/48 L 100 Intake and Output (Last 8hrs): Intake & Output 06/24/18 06/25/18 06/25/18 22:59 06:59 14:59 Intake Total 1350 Output Total 450 150 Balance -450 1200 Weight 145 lb Intake: Intake, IV Amount 1350 Left Hand 350 Left Wrist 1000 Oral 0 Blood Product 0 Red Blood Cells Cpd As1 0 Lr Unit [id number] Output: Urine 450 150 Urethral (Queen) 150 Other: # Bowel Movements 0 - Physical Exam Physical Exam Limitations: Positive for: Altered Mental Status Head: Positive for: Atraumatic, Normocephalic Pupils: Positive for: PERRL Extroacular Muscles: Positive for: EOMI Conjunctiva: Positive for: Normal Mouth: Positive for: Moist Mucous Membranes, Normal Tounge Pharnyx: Negative for: Uvular Deviation Respiratory/Chest: Positive for: Decreased Breath Sounds (bilateral upper lobes). Negative for: Wheezes, Rales, Rhonchi Cardiovascular: Positive for: Regular Rate and Rhythm, Normal S1, S2 Abdomen: Negative for: Tenderness, Distention Upper Extremity: Positive for: Normal Inspection. Negative for: Edema Lower Extremity: Positive for: Normal Inspection. Negative for: Edema Neurological: Positive for: CN II-XII Intact Skin: Positive for: Warm, Diaphoretic Psychiatric: Positive for: Lethargic - Medications Active Medications: Active Medications Generic Name Dose Route Start Last Admin Trade Name Freq PRN Reason Stop Dose Admin Acetaminophen 975 mg 06/24/18 22:16 06/24/18 22:28 Tylenol 325mg Tab PO 975 mg ONCE PRN Administration Fever >100.4 F Albuterol/Ipratropium 3 ml 06/25/18 14:00 Duoneb 3 Mg/0.5 Mg (3 Ml) Ud INH RQ6 KHARI Heparin Sodium (Porcine) 5,000 units 06/25/18 10:00 06/25/18 10:50 Heparin SC 5,000 units Q12 KHARI Administration Trimethoprim/Sulfamethoxazole 250 mls @ 250 mls/hr 06/25/18 00:30 06/25/18 08:03 240 mg/ Dextrose IVPB 250 mls/hr Q6H KHARI Administration Protocol Vancomycin HCl 1 gm/ Sodium 250 mls @ 166.7 mls/hr 06/25/18 00:30 06/25/18 03:10 Chloride IVPB 166.7 mls/hr Q24H KHARI Administration Protocol Lactated Ringer's 1,000 mls @ 100 mls/hr 06/25/18 01:30 06/25/18 06:07 Lactated Ringer's IV 100 mls/hr .Q10H KHARI Administration Cefepime HCl 1 gm/ Dextrose 50 mls @ 100 mls/hr 06/25/18 07:00 06/25/18 07:50 IVPB 100 mls/hr Q8H KHARI Administration Protocol Methylprednisolone 40 mg 06/25/18 12:00 Solu-Medrol IVP Q12H KHARI Pantoprazole Sodium 40 mg 06/25/18 10:45 06/25/18 10:50 Protonix Inj IVP 40 mg DAILY KHARI Administration - Patient Studies Lab Studies: Lab Studies 06/25/18 06/25/18 06/25/18 Range/Units 05:17 05:17 05:17 WBC (4.8-10.8) K/uL RBC (3.80-5.20) Mil/uL Hgb (11.0-16.0) g/dL Hct (34.0-47.0) % MCV (81.0-99.0) fL MCH (27.0-31.0) pg MCHC (33.0-37.0) g/dL RDW (11.5-14.5) % Plt Count (130-400) K/uL MPV (7.2-11.7) fL Neut % (Auto) (50.0-75.0) % Lymph % (Auto) (20.0-40.0) % [place] % (Auto) (0.0-10.0) % Eos % (Auto) (0.0-4.0) % Baso % (Auto) (0.0-2.0) % Neut # (Auto) (1.8-7.0) K/uL Lymph # (Auto) (1.0-4.3) K/uL [place] # (Auto) (0.0-0.8) K/uL Eos # (Auto) (0.0-0.7) K/uL Baso # (Auto) (0.0-0.2) K/uL Neutrophils % (Manual) (50-75) % Band Neutrophils % (0-2) % Lymphocytes % (Manual) (20-40) % Monocytes % (Manual) (0-10) % Platelet Estimate (NORMAL) Hypochromasia (manual) Poikilocytosis (manual Anisocytosis (manual) Ovalocytes [place] Cells PT (9.7-12.2) SECONDS INR APTT (21-34) SECONDS Puncture Site pCO2 (35-45) mm/Hg pO2 (30-55) mm/Hg HCO3 (21-28) mmol/L ABG pH (7.35-7.45) ABG Total CO2 (22-28) mmol/L ABG O2 Saturation (95-98) % ABG Base Excess (-2.0-3.0) mmol/L [place] Test ABG Potassium (3.6-5.2) mmol/L VBG pH (7.32-7.43) VBG pCO2 (40-60) mmHg VBG HCO3 mmol/L VBG Total CO2 (22-28) mmol/L VBG O2 Sat (Calc) (40-65) % VBG Base Excess (0.0-2.0) mmol/L VBG Potassium (3.6-5.2) mmol/L Sodium 140 (132-148) mmol/l Chloride 117 H (98-107) mmol/L Glucose (65-105) mg/dl Lactate (0.7-2.1) mmol/L Liter Flow Blood Gas Comments Crit Value Called To Crit Value Called By Crit Value Read Back Blood Gas Notified Time Potassium 3.7 (3.6-5.2) mmol/L Carbon Dioxide 15 L (22-30) mmol/L Anion Gap 11 (10-20) BUN 49 H (7-17) mg/dL Creatinine 0.9 (0.7-1.2) mg/dL Est GFR ( Amer) > 60 Est GFR (Non-Af Amer) > 60 Random Glucose 124 H (65-105) mg/dL Calcium 6.9 L (8.6-10.4) mg/dl Phosphorus 3.5 (2.5-4.5) mg/dL Magnesium 2.4 H (1.6-2.3) mg/dL Total Bilirubin 0.3 (0.2-1.3) mg/dL AST 56 H (14-36) U/L ALT 39 (9-52) U/L Alkaline Phosphatase 68 (38-126) U/L Troponin I (0.00-0.120) ng/mL NT-Pro-B Natriuret Pep (0-900) pg/mL Total Protein 6.3 (6.3-8.3) g/dL Albumin 2.4 L D (3.5-5.0) g/dL Globulin 3.9 (2.2-3.9) gm/dL Albumin/Globulin Ratio 0.6 L (1.0-2.1) Cortisol AM Sample 43.8 H (4.46-22.7) ug/dL Arterial Blood Potassium (3.6-5.2) mmol/L Venous Blood Potassium (3.6-5.2) mmol/L Urine Color (YELLOW) Urine Clarity (Clear) Urine pH (5.0-8.0) Ur Specific [place] (1.003-1.030) Urine Protein (NEGATIVE) mg/dL Urine Glucose (UA) (Normal) mg/dL Urine Ketones (NEGATIVE) mg/dL Urine Blood (NEGATIVE) Urine Nitrate (NEGATIVE) Urine Bilirubin (NEGATIVE) Urine Urobilinogen (0.2-1.0) mg/dL Ur Leukocyte Esterase (Negative) Lisa/uL Urine WBC (Auto) (0-5) /hpf Urine RBC (Auto) (0-3) /hpf Ur Squamous Epith Cells (0-5) /hpf Urine Bacteria (<OCC) Hyaline Casts (0-2) /lpf Urine HCG, Qual (NEGATIVE) Urine Opiates Screen (NEGATIVE) Urine Methadone Screen (NEGATIVE) Ur Barbiturates Screen (NEGATIVE) Ur Phencyclidine Scrn (NEGATIVE) Ur Amphetamines Screen (NEGATIVE) U Benzodiazepines Scrn (NEGATIVE) U Oth Cocaine Metabols (NEGATIVE) U Cannabinoids Screen (NEGATIVE) Blood Type A POSITIVE Antibody Screen Negative 06/25/18 06/25/18 06/25/18 Range/Units 05:17 05:10 00:43 WBC 4.3 L (4.8-10.8) K/uL RBC 3.18 L (3.80-5.20) Mil/uL Hgb 8.5 L D (11.0-16.0) g/dL Hct 27.1 L (34.0-47.0) % MCV 85.2 (81.0-99.0) fL MCH 26.9 L (27.0-31.0) pg MCHC 31.5 L (33.0-37.0) g/dL RDW 14.3 (11.5-14.5) % Plt Count 206 (130-400) K/uL MPV 9.2 (7.2-11.7) fL Neut % (Auto) 80.5 H (50.0-75.0) % Lymph % (Auto) 8.8 L (20.0-40.0) % [place] % (Auto) 10.6 H (0.0-10.0) % Eos % (Auto) 0.0 (0.0-4.0) % Baso % (Auto) 0.1 (0.0-2.0) % Neut # (Auto) 3.5 (1.8-7.0) K/uL Lymph # (Auto) 0.4 L (1.0-4.3) K/uL [place] # (Auto) 0.5 (0.0-0.8) K/uL Eos # (Auto) 0.0 (0.0-0.7) K/uL Baso # (Auto) 0.0 (0.0-0.2) K/uL Neutrophils % (Manual) 45 L (50-75) % Band Neutrophils % 35 H* (0-2) % Lymphocytes % (Manual) 6 L (20-40) % Monocytes % (Manual) 14 H (0-10) % Platelet Estimate Normal (NORMAL) Hypochromasia (manual) Slight Poikilocytosis (manual Slight Anisocytosis (manual) Slight Ovalocytes Slight [place] Cells Slight PT (9.7-12.2) SECONDS INR APTT (21-34) SECONDS Puncture Site R brac pCO2 38 (35-45) mm/Hg pO2 50 89 (30-55) mm/Hg HCO3 17.6 L (21-28) mmol/L ABG pH 7.26 L (7.35-7.45) ABG Total CO2 18.3 L (22-28) mmol/L ABG O2 Saturation 96.7 (95-98) % ABG Base Excess -9.3 L (-2.0-3.0) mmol/L [place]ne Test Na ABG Potassium 3.2 L (3.6-5.2) mmol/L VBG pH 7.19 L* (7.32-7.43) VBG pCO2 44 (40-60) mmHg VBG HCO3 15.6 mmol/L VBG Total CO2 18.2 L (22-28) mmol/L VBG O2 Sat (Calc) 82.8 H (40-65) % VBG Base Excess -11.1 L (0.0-2.0) mmol/L VBG Potassium 3.3 L (3.6-5.2) mmol/L Sodium 141.0 140.0 (132-148) mmol/l Chloride 118.0 H 119.0 H (98-107) mmol/L Glucose 120 H 123 H (65-105) mg/dl Lactate 1.2 1.0 (0.7-2.1) mmol/L Liter Flow 3.0 Blood Gas Comments Low ph value 7.19 Crit Value Called To Crit Value Called By [place] dash Crit Value Read Back Y Blood Gas Notified Time 516 Potassium (3.6-5.2) mmol/L Carbon Dioxide (22-30) mmol/L Anion Gap (10-20) BUN (7-17) mg/dL Creatinine (0.7-1.2) mg/dL Est GFR ( Amer) Est GFR (Non-Af Amer) Random Glucose (65-105) mg/dL Calcium (8.6-10.4) mg/dl Phosphorus (2.5-4.5) mg/dL Magnesium (1.6-2.3) mg/dL Total Bilirubin (0.2-1.3) mg/dL AST (14-36) U/L ALT (9-52) U/L Alkaline Phosphatase (38-126) U/L Troponin I (0.00-0.120) ng/mL NT-Pro-B Natriuret Pep (0-900) pg/mL Total Protein (6.3-8.3) g/dL Albumin (3.5-5.0) g/dL Globulin (2.2-3.9) gm/dL Albumin/Globulin Ratio (1.0-2.1) Cortisol AM Sample (4.46-22.7) ug/dL Arterial Blood Potassium 3.2 L (3.6-5.2) mmol/L Venous Blood Potassium 3.3 L (3.6-5.2) mmol/L Urine Color (YELLOW) Urine Clarity (Clear) Urine pH (5.0-8.0) Ur Specific [place] (1.003-1.030) Urine Protein (NEGATIVE) mg/dL Urine Glucose (UA) (Normal) mg/dL Urine Ketones (NEGATIVE) mg/dL Urine Blood (NEGATIVE) Urine Nitrate (NEGATIVE) Urine Bilirubin (NEGATIVE) Urine Urobilinogen (0.2-1.0) mg/dL Ur Leukocyte Esterase (Negative) Lisa/uL Urine WBC (Auto) (0-5) /hpf Urine RBC (Auto) (0-3) /hpf Ur Squamous Epith Cells (0-5) /hpf Urine Bacteria (<OCC) Hyaline Casts (0-2) /lpf Urine HCG, Qual (NEGATIVE) Urine Opiates Screen (NEGATIVE) Urine Methadone Screen (NEGATIVE) Ur Barbiturates Screen (NEGATIVE) Ur Phencyclidine Scrn (NEGATIVE) Ur Amphetamines Screen (NEGATIVE) U Benzodiazepines Scrn (NEGATIVE) U Oth Cocaine Metabols (NEGATIVE) U Cannabinoids Screen (NEGATIVE) Blood Type Antibody Screen 06/24/18 06/24/18 06/24/18 Range/Units 23:25 23:25 22:42 WBC (4.8-10.8) K/uL RBC (3.80-5.20) Mil/uL Hgb (11.0-16.0) g/dL Hct (34.0-47.0) % MCV (81.0-99.0) fL MCH (27.0-31.0) pg MCHC (33.0-37.0) g/dL RDW (11.5-14.5) % Plt Count (130-400) K/uL MPV (7.2-11.7) fL Neut % (Auto) (50.0-75.0) % Lymph % (Auto) (20.0-40.0) % [place] % (Auto) (0.0-10.0) % Eos % (Auto) (0.0-4.0) % Baso % (Auto) (0.0-2.0) % Neut # (Auto) (1.8-7.0) K/uL Lymph # (Auto) (1.0-4.3) K/uL [place] # (Auto) (0.0-0.8) K/uL Eos # (Auto) (0.0-0.7) K/uL Baso # (Auto) (0.0-0.2) K/uL Neutrophils % (Manual) (50-75) % Band Neutrophils % (0-2) % Lymphocytes % (Manual) (20-40) % Monocytes % (Manual) (0-10) % Platelet Estimate (NORMAL) Hypochromasia (manual) Poikilocytosis (manual Anisocytosis (manual) Ovalocytes [place] Cells PT 13.4 H (9.7-12.2) SECONDS INR 1.2 APTT 29 (21-34) SECONDS Puncture Site pCO2 (35-45) mm/Hg pO2 (30-55) mm/Hg HCO3 (21-28) mmol/L ABG pH (7.35-7.45) ABG Total CO2 (22-28) mmol/L ABG O2 Saturation (95-98) % ABG Base Excess (-2.0-3.0) mmol/L [place]ne Test ABG Potassium (3.6-5.2) mmol/L VBG pH (7.32-7.43) VBG pCO2 (40-60) mmHg VBG HCO3 mmol/L VBG Total CO2 (22-28) mmol/L VBG O2 Sat (Calc) (40-65) % VBG Base Excess (0.0-2.0) mmol/L VBG Potassium (3.6-5.2) mmol/L Sodium (132-148) mmol/l Chloride (98-107) mmol/L Glucose (65-105) mg/dl Lactate (0.7-2.1) mmol/L Liter Flow Blood Gas Comments Crit Value Called To Crit Value Called By Crit Value Read Back Blood Gas Notified Time Potassium (3.6-5.2) mmol/L Carbon Dioxide (22-30) mmol/L Anion Gap (10-20) BUN (7-17) mg/dL Creatinine (0.7-1.2) mg/dL Est GFR ( Amer) Est GFR (Non-Af Amer) Random Glucose (65-105) mg/dL Calcium (8.6-10.4) mg/dl Phosphorus (2.5-4.5) mg/dL Magnesium (1.6-2.3) mg/dL Total Bilirubin (0.2-1.3) mg/dL AST (14-36) U/L ALT (9-52) U/L Alkaline Phosphatase (38-126) U/L Troponin I (0.00-0.120) ng/mL NT-Pro-B Natriuret Pep (0-900) pg/mL Total Protein (6.3-8.3) g/dL Albumin (3.5-5.0) g/dL Globulin (2.2-3.9) gm/dL Albumin/Globulin Ratio (1.0-2.1) Cortisol AM Sample (4.46-22.7) ug/dL Arterial Blood Potassium (3.6-5.2) mmol/L Venous Blood Potassium (3.6-5.2) mmol/L Urine Color Yellow (YELLOW) Urine Clarity Hazy (Clear) Urine pH 6.0 (5.0-8.0) Ur Specific [place] 1.019 (1.003-1.030) Urine Protein 2+ H (NEGATIVE) mg/dL Urine Glucose (UA) Normal (Normal) mg/dL Urine Ketones Negative (NEGATIVE) mg/dL Urine Blood 2+ H (NEGATIVE) Urine Nitrate Negative (NEGATIVE) Urine Bilirubin Negative (NEGATIVE) Urine Urobilinogen Normal (0.2-1.0) mg/dL Ur Leukocyte Esterase Neg (Negative) Lisa/uL Urine WBC (Auto) 3 (0-5) /hpf Urine RBC (Auto) 12 H (0-3) /hpf Ur Squamous Epith Cells 1 (0-5) /hpf Urine Bacteria Occ H (<OCC) Hyaline Casts 3-5 H (0-2) /lpf Urine HCG, Qual Negative (NEGATIVE) Urine Opiates Screen Negative (NEGATIVE) Urine Methadone Screen Negative (NEGATIVE) Ur Barbiturates Screen Negative (NEGATIVE) Ur Phencyclidine Scrn Negative (NEGATIVE) Ur Amphetamines Screen Negative (NEGATIVE) U Benzodiazepines Scrn Negative (NEGATIVE) U Oth Cocaine Metabols Positive H (NEGATIVE) U Cannabinoids Screen Negative (NEGATIVE) Blood Type Antibody Screen 06/24/18 06/24/18 06/24/18 Range/Units 22:42 22:42 22:40 WBC 3.6 L (4.8-10.8) K/uL RBC 3.88 (3.80-5.20) Mil/uL Hgb 10.7 L D (11.0-16.0) g/dL Hct 32.4 L (34.0-47.0) % MCV 83.5 (81.0-99.0) fL MCH 27.5 (27.0-31.0) pg MCHC 33.0 (33.0-37.0) g/dL RDW 14.4 (11.5-14.5) % Plt Count 279 (130-400) K/uL MPV 8.7 (7.2-11.7) fL Neut % (Auto) 79.3 H (50.0-75.0) % Lymph % (Auto) 6.6 L (20.0-40.0) % [place] % (Auto) 14.0 H (0.0-10.0) % Eos % (Auto) 0.0 (0.0-4.0) % Baso % (Auto) 0.1 (0.0-2.0) % Neut # (Auto) 2.9 (1.8-7.0) K/uL Lymph # (Auto) 0.2 L (1.0-4.3) K/uL [place] # (Auto) 0.5 (0.0-0.8) K/uL Eos # (Auto) 0.0 (0.0-0.7) K/uL Baso # (Auto) 0.0 (0.0-0.2) K/uL Neutrophils % (Manual) 82 H (50-75) % Band Neutrophils % (0-2) % Lymphocytes % (Manual) 6 L (20-40) % Monocytes % (Manual) 12 H (0-10) % Platelet Estimate Normal (NORMAL) Hypochromasia (manual) Poikilocytosis (manual Anisocytosis (manual) Ovalocytes [place] Cells PT (9.7-12.2) SECONDS INR APTT (21-34) SECONDS Puncture Site pCO2 (35-45) mm/Hg pO2 22 L (30-55) mm/Hg HCO3 (21-28) mmol/L ABG pH (7.35-7.45) ABG Total CO2 (22-28) mmol/L ABG O2 Saturation (95-98) % ABG Base Excess (-2.0-3.0) mmol/L [place]ne Test ABG Potassium (3.6-5.2) mmol/L VBG pH 7.29 L (7.32-7.43) VBG pCO2 44 (40-60) mmHg VBG HCO3 19.0 mmol/L VBG Total CO2 22.6 (22-28) mmol/L VBG O2 Sat (Calc) 31.0 L (40-65) % VBG Base Excess -5.3 L (0.0-2.0) mmol/L VBG Potassium 3.2 L (3.6-5.2) mmol/L Sodium 140 141.0 (132-148) mmol/l Chloride 110 H 111.0 H (98-107) mmol/L Glucose 102 (65-105) mg/dl Lactate 2.1 (0.7-2.1) mmol/L Liter Flow Blood Gas Comments Crit Value Called To Crit Value Called By Crit Value Read Back Blood Gas Notified Time Potassium 3.5 L (3.6-5.2) mmol/L Carbon Dioxide 21 L (22-30) mmol/L Anion Gap 13 (10-20) BUN 64 H (7-17) mg/dL Creatinine 1.5 H (0.7-1.2) mg/dL Est GFR ( Amer) 44 Est GFR (Non-Af Amer) 36 Random Glucose 114 H (65-105) mg/dL Calcium 8.4 L (8.6-10.4) mg/dl Phosphorus 2.1 L (2.5-4.5) mg/dL Magnesium 2.7 H (1.6-2.3) mg/dL Total Bilirubin 0.6 (0.2-1.3) mg/dL AST 64 H D (14-36) U/L ALT 46 (9-52) U/L Alkaline Phosphatase 84 (38-126) U/L Troponin I 0.0540 (0.00-0.120) ng/mL NT-Pro-B Natriuret Pep 2980 H (0-900) pg/mL Total Protein 8.4 H (6.3-8.3) g/dL Albumin 3.4 L (3.5-5.0) g/dL Globulin 4.9 H (2.2-3.9) gm/dL Albumin/Globulin Ratio 0.7 L (1.0-2.1) Cortisol AM Sample (4.46-22.7) ug/dL Arterial Blood Potassium (3.6-5.2) mmol/L Venous Blood Potassium 3.2 L (3.6-5.2) mmol/L Urine Color (YELLOW) Urine Clarity (Clear) Urine pH (5.0-8.0) Ur Specific [place] (1.003-1.030) Urine Protein (NEGATIVE) mg/dL Urine Glucose (UA) (Normal) mg/dL Urine Ketones (NEGATIVE) mg/dL Urine Blood (NEGATIVE) Urine Nitrate (NEGATIVE) Urine Bilirubin (NEGATIVE) Urine Urobilinogen (0.2-1.0) mg/dL Ur Leukocyte Esterase (Negative) Lisa/uL Urine WBC (Auto) (0-5) /hpf Urine RBC (Auto) (0-3) /hpf Ur Squamous Epith Cells (0-5) /hpf Urine Bacteria (<OCC) Hyaline Casts (0-2) /lpf Urine HCG, Qual (NEGATIVE) Urine Opiates Screen (NEGATIVE) Urine Methadone Screen (NEGATIVE) Ur Barbiturates Screen (NEGATIVE) Ur Phencyclidine Scrn (NEGATIVE) Ur Amphetamines Screen (NEGATIVE) U Benzodiazepines Scrn (NEGATIVE) U Oth Cocaine Metabols (NEGATIVE) U Cannabinoids Screen (NEGATIVE) Blood Type Antibody Screen Laboratory Results - last 24 hr 06/24/18 06/24/18 06/24/18 22:40 22:42 22:42 WBC 3.6 L RBC 3.88 Hgb 10.7 L D Hct 32.4 L MCV 83.5 MCH 27.5 MCHC 33.0 RDW 14.4 Plt Count 279 MPV 8.7 Neut % (Auto) 79.3 H Lymph % (Auto) 6.6 L [place] % (Auto) 14.0 H Eos % (Auto) 0.0 Baso % (Auto) 0.1 Neut # (Auto) 2.9 Lymph # (Auto) 0.2 L [place] # (Auto) 0.5 Eos # (Auto) 0.0 Baso # (Auto) 0.0 Neutrophils % (Manual) 82 H Band Neutrophils % Lymphocytes % (Manual) 6 L Monocytes % (Manual) 12 H Platelet Estimate Normal Hypochromasia (manual) Poikilocytosis (manual Anisocytosis (manual) Ovalocytes [place] Cells PT INR APTT Puncture Site pCO2 pO2 22 L HCO3 ABG pH ABG Total CO2 ABG O2 Saturation ABG Base Excess [place] Test ABG Potassium VBG pH 7.29 L VBG pCO2 44 VBG HCO3 19.0 VBG Total CO2 22.6 VBG O2 Sat (Calc) 31.0 L VBG Base Excess -5.3 L VBG Potassium 3.2 L Sodium 141.0 140 Chloride 111.0 H 110 H Glucose 102 Lactate 2.1 Liter Flow Blood Gas Comments Crit Value Called To Crit Value Called By Crit Value Read Back Blood Gas Notified Time Potassium 3.5 L Carbon Dioxide 21 L Anion Gap 13 BUN 64 H Creatinine 1.5 H Est GFR ( Amer) 44 Est GFR (Non-Af Amer) 36 Random Glucose 114 H Calcium 8.4 L Phosphorus 2.1 L Magnesium 2.7 H Total Bilirubin 0.6 AST 64 H D ALT 46 Alkaline Phosphatase 84 Troponin I 0.0540 NT-Pro-B Natriuret Pep 2980 H Total Protein 8.4 H Albumin 3.4 L Globulin 4.9 H Albumin/Globulin Ratio 0.7 L Cortisol AM Sample Arterial Blood Potassium Venous Blood Potassium 3.2 L Urine Color Urine Clarity Urine pH Ur Specific [place] Urine Protein Urine Glucose (UA) Urine Ketones Urine Blood Urine Nitrate Urine Bilirubin Urine Urobilinogen Ur Leukocyte Esterase Urine WBC (Auto) Urine RBC (Auto) Ur Squamous Epith Cells Urine Bacteria Hyaline Casts Urine HCG, Qual Urine Opiates Screen Urine Methadone Screen Ur Barbiturates Screen Ur Phencyclidine Scrn Ur Amphetamines Screen U Benzodiazepines Scrn U Oth Cocaine Metabols U Cannabinoids Screen Blood Type Antibody Screen 06/24/18 06/24/18 06/24/18 22:42 23:25 23:25 WBC RBC Hgb Hct MCV MCH MCHC RDW Plt Count MPV Neut % (Auto) Lymph % (Auto) [place] % (Auto) Eos % (Auto) Baso % (Auto) Neut # (Auto) Lymph # (Auto) [place] # (Auto) Eos # (Auto) Baso # (Auto) Neutrophils % (Manual) Band Neutrophils % Lymphocytes % (Manual) Monocytes % (Manual) Platelet Estimate Hypochromasia (manual) Poikilocytosis (manual Anisocytosis (manual) Ovalocytes [place] Cells PT 13.4 H INR 1.2 APTT 29 Puncture Site pCO2 pO2 HCO3 ABG pH ABG Total CO2 ABG O2 Saturation ABG Base Excess [place] Test ABG Potassium VBG pH VBG pCO2 VBG HCO3 VBG Total CO2 VBG O2 Sat (Calc) VBG Base Excess VBG Potassium Sodium Chloride Glucose Lactate Liter Flow Blood Gas Comments Crit Value Called To Crit Value Called By Crit Value Read Back Blood Gas Notified Time Potassium Carbon Dioxide Anion Gap BUN Creatinine Est GFR ( Amer) Est GFR (Non-Af Amer) Random Glucose Calcium Phosphorus Magnesium Total Bilirubin AST ALT Alkaline Phosphatase Troponin I NT-Pro-B Natriuret Pep Total Protein Albumin Globulin Albumin/Globulin Ratio Cortisol AM Sample Arterial Blood Potassium Venous Blood Potassium Urine Color Yellow Urine Clarity Hazy Urine pH 6.0 Ur Specific [place] 1.019 Urine Protein 2+ H Urine Glucose (UA) Normal Urine Ketones Negative Urine Blood 2+ H Urine Nitrate Negative Urine Bilirubin Negative Urine Urobilinogen Normal Ur Leukocyte Esterase Neg Urine WBC (Auto) 3 Urine RBC (Auto) 12 H Ur Squamous Epith Cells 1 Urine Bacteria Occ H Hyaline Casts 3-5 H Urine HCG, Qual Negative Urine Opiates Screen Negative Urine Methadone Screen Negative Ur Barbiturates Screen Negative Ur Phencyclidine Scrn Negative Ur Amphetamines Screen Negative U Benzodiazepines Scrn Negative U Oth Cocaine Metabols Positive H U Cannabinoids Screen Negative Blood Type Antibody Screen 06/25/18 06/25/18 06/25/18 00:43 05:10 05:17 WBC 4.3 L RBC 3.18 L Hgb 8.5 L D Hct 27.1 L MCV 85.2 MCH 26.9 L MCHC 31.5 L RDW 14.3 Plt Count 206 MPV 9.2 Neut % (Auto) 80.5 H Lymph % (Auto) 8.8 L [place] % (Auto) 10.6 H Eos % (Auto) 0.0 Baso % (Auto) 0.1 Neut # (Auto) 3.5 Lymph # (Auto) 0.4 L [place] # (Auto) 0.5 Eos # (Auto) 0.0 Baso # (Auto) 0.0 Neutrophils % (Manual) 45 L Band Neutrophils % 35 H* Lymphocytes % (Manual) 6 L Monocytes % (Manual) 14 H Platelet Estimate Normal Hypochromasia (manual) Slight Poikilocytosis (manual Slight Anisocytosis (manual) Slight Ovalocytes Slight [place] Cells Slight PT INR APTT Puncture Site R brac pCO2 38 pO2 89 50 HCO3 17.6 L ABG pH 7.26 L ABG Total CO2 18.3 L ABG O2 Saturation 96.7 ABG Base Excess -9.3 L Blayne Test Na ABG Potassium 3.2 L VBG pH 7.19 L* VBG pCO2 44 VBG HCO3 15.6 VBG Total CO2 18.2 L VBG O2 Sat (Calc) 82.8 H VBG Base Excess -11.1 L VBG Potassium 3.3 L Sodium 140.0 141.0 Chloride 119.0 H 118.0 H Glucose 123 H 120 H Lactate 1.0 1.2 Liter Flow 3.0 Blood Gas Comments Low ph value 7.19 Crit Value Called To Crit Value Called By [place] dash Crit Value Read Back Y Blood Gas Notified Time 516 Potassium Carbon Dioxide Anion Gap BUN Creatinine Est GFR ( Amer) Est GFR (Non-Af Amer) Random Glucose Calcium Phosphorus Magnesium Total Bilirubin AST ALT Alkaline Phosphatase Troponin I NT-Pro-B Natriuret Pep Total Protein Albumin Globulin Albumin/Globulin Ratio Cortisol AM Sample Arterial Blood Potassium 3.2 L Venous Blood Potassium 3.3 L Urine Color Urine Clarity Urine pH Ur Specific [place] Urine Protein Urine Glucose (UA) Urine Ketones Urine Blood Urine Nitrate Urine Bilirubin Urine Urobilinogen Ur Leukocyte Esterase Urine WBC (Auto) Urine RBC (Auto) Ur Squamous Epith Cells Urine Bacteria Hyaline Casts Urine HCG, Qual Urine Opiates Screen Urine Methadone Screen Ur Barbiturates Screen Ur Phencyclidine Scrn Ur Amphetamines Screen U Benzodiazepines Scrn U Oth Cocaine Metabols U Cannabinoids Screen Blood Type Antibody Screen 06/25/18 06/25/18 06/25/18 05:17 05:17 05:17 WBC RBC Hgb Hct MCV MCH MCHC RDW Plt Count MPV Neut % (Auto) Lymph % (Auto) [place] % (Auto) Eos % (Auto) Baso % (Auto) Neut # (Auto) Lymph # (Auto) [place] # (Auto) Eos # (Auto) Baso # (Auto) Neutrophils % (Manual) Band Neutrophils % Lymphocytes % (Manual) Monocytes % (Manual) Platelet Estimate Hypochromasia (manual) Poikilocytosis (manual Anisocytosis (manual) Ovalocytes [place] Cells PT INR APTT Puncture Site pCO2 pO2 HCO3 ABG pH ABG Total CO2 ABG O2 Saturation ABG Base Excess [place] Test ABG Potassium VBG pH VBG pCO2 VBG HCO3 VBG Total CO2 VBG O2 Sat (Calc) VBG Base Excess VBG Potassium Sodium 140 Chloride 117 H Glucose Lactate Liter Flow Blood Gas Comments Crit Value Called To Crit Value Called By Crit Value Read Back Blood Gas Notified Time Potassium 3.7 Carbon Dioxide 15 L Anion Gap 11 BUN 49 H Creatinine 0.9 Est GFR ( Amer) > 60 Est GFR (Non-Af Amer) > 60 Random Glucose 124 H Calcium 6.9 L Phosphorus 3.5 Magnesium 2.4 H Total Bilirubin 0.3 AST 56 H ALT 39 Alkaline Phosphatase 68 Troponin I NT-Pro-B Natriuret Pep Total Protein 6.3 Albumin 2.4 L D Globulin 3.9 Albumin/Globulin Ratio 0.6 L Cortisol AM Sample 43.8 H Arterial Blood Potassium Venous Blood Potassium Urine Color Urine Clarity Urine pH Ur Specific [place] Urine Protein Urine Glucose (UA) Urine Ketones Urine Blood Urine Nitrate Urine Bilirubin Urine Urobilinogen Ur Leukocyte Esterase Urine WBC (Auto) Urine RBC (Auto) Ur Squamous Epith Cells Urine Bacteria Hyaline Casts Urine HCG, Qual Urine Opiates Screen Urine Methadone Screen Ur Barbiturates Screen Ur Phencyclidine Scrn Ur Amphetamines Screen U Benzodiazepines Scrn U Oth Cocaine Metabols U Cannabinoids Screen Blood Type A POSITIVE Antibody Screen Negative EKG/Cardiology Studies: Cardiology / EKG Studies 06/24/18 22:16 ELECTROCARDIOGRAM Stat Comment: Mode Of Transportation: Reason For Exam: Sepsis Patient Review of Systems - Review of Systems Systems not reviewed;Unavailable: Acuity of Condition Critical Care Progress Note - Prophylaxis GI Prophylaxis GI: PPI - Prophylaxis DVT Prophylaxis DVT: Heparin SQ Assessment/Plan - Assessment and Plan (Free Text) Assessment: 57 yo F bilateral pna code sepsis called Neuro: -Aletered -monitor mental status -not currently on sedation Cardio Vasc: Hypotension -Maintain MAP >60 -Recieved cardizem x2 ivp and toprol 2.5 when admitted -1 L [place] bolus -transfuse 1 unit of PRBCs Pulm: Multilobar pna -Cefepime -Vanco -Bactrim -BIPAP -Duonebs q6 -Solu-medrol 40 IVP -Maintain spO2 >92% -Dr Rosenbaum ID consulted f/u recs: Renal OSVALDO -resolved -monitor I&Os Dehydration -[place] @ 100ml/hr ID Possible sepsis -IV Cefepime, Vanco and Bactrim -Dr Rosenbaum Consulted HIV/AIDS, noncompliance -f/u CD4 Endo -maintain euglycemia 120-180 glucose GI/ PPX -IV ptx -Heparin 5000u sq d/w Dr Eduardo Gallo PGY1
--- NOTE | 2018-06-25 11:26 | CP.PCM.CON ---
History of Present Illness - History of Present Illness History of Present Illness: 57 F with h/o schizophrenia, HIV/AIDS, non compliance cocaine abuse, admitted with sepsis possible drug overdose SVT and abnormal CXR Empiric IV rx in progress Cultures pending Family history N/A Allergies reviewed Meds unknown at time of exam Social tobacco abuse, cocaine abuse Review of Systems - Review of Systems Systems not reviewed;Unavailable: Altered Mental Status All systems: reviewed and no additional remarkable complaints except - Constitutional Constitutional: As Per HPI - EENT Eyes: absent: As Per HPI, Blind Spots, Blurred Vision, Change in Vision, Decreased Night Vision, Diplopia, Discharge, Dry Eye, Exophthalmos, Floaters, Irritation, Itchy Eyes, Loss of Peripheral Vision, Pain, Photophobia, Requires Corrective Lenses, Sees Flashes, Spots in Vision, Tunnel Vision, Other Visual Disturbances, Loss of Vision, Other Ears: absent: As Per HPI, Decreased Hearing, Ear Discharge, Ear Pain, Tinnitus, Abnormal Hearing, Disequilibrium, Dizziness, Other Nose/Mouth/Throat: absent: As Per HPI, Epistaxis, Nasal Congestion, Nasal Discharge, Nasal Obstruction, Nasal Trauma, Nose Pain, Post Nasal Drip, Sinus Pain, Sinus Pressure, Bleeding Gums, Change in Voice, Dental Pain, Dry Mouth, Dysphagia, Halitosis, Hoarsness, Lip Swelling, Mouth Lesions, Mouth Pain, Odynophagia, Sore Throat, Throat Swelling, Tongue Swelling, Facial Pain, Neck Pain, Neck Mass, Other - Breasts Breasts: absent: As Per HPI, Change in Shape, Mass, Pain, Nipple Discharge, Nipp le Inversion, Skin Changes, Swelling, Other - Cardiovascular Cardiovascular: absent: As Per HPI, Acrocyanosis, Chest Pain, Chest Pain at Rest, Chest Pain with Activity, Claudication, Diaphoresis, Dyspnea, Dyspnea on Exertion, Edema, Irregular Heart Rhythm, Pain Radiating to Arm/Neck/Jaw, Leg Edema, Leg Ulcers, Lightheadedness, Orthopnea, Palpitations, Paroxysmal Nocturnal Dyspnea, Pedal Edema, Radiating Pain, Rapid Heart Rate, Slow Heart Rate, Syncope, Other - Respiratory Respiratory: absent: As Per HPI, Cough, Dyspnea, Hemoptysis, Dyspnea on Exertion, Wheezing, Snoring, Stridor, Pain on Inspiration, Chest Congestion, Excessive Mucous Production, Change in Mucous Color, Pain with Coughing, Other - Gastrointestinal Gastrointestinal: absent: As Per HPI, Abdominal Pain, Belching, Bloating, Change in Bowel Habits, Change in Stool Character, Coffee Ground Emesis, Constipation, Cramping, Diarrhea, Dyspepsia, Dysphagia, Early Satiety, Excessive Flatus, Fecal Incontinence, Heartburn, Hematemesis, Hematochezia, Loose Stools, Melena, Nausea, Odynophagia, Temesmus, Vomiting, Other - Reproductive: Female Reproductive:Female: absent: As Per HPI, Amenorrhea, Amenorrhea/ Control, Currently Menstual, Cycle <21 Days, Cycle >35 Days, Cycle Variable, Menses 1-7 Days, Menses >/= 8 Days, Menses Variable, Cycle > 4 Weeks Between, No Menses for 6 Months, Heavy Menses, Light Menses, Normal Menses, Spotting Between Cycles, S/P Hysterectomy, Menopausal, Post Menopausal, Premenarche, Abnormal Vaginal Bleeding, Dysmenorrhea, Dyspareunia, Genital Lesions, Genital Pruritis, Pelvic Pain, Prolapse Symptoms, Sexual Dysfunction, Vaginal Discharge, Vaginal Dryness, Vaginal Odor, Vaginal Pruritis, Other - Menstruation Menstruation: absent: As Per HPI, Amenorrhea, Amenorrhea/ Control, Currently Menstual, Cycle <21 Days, Cycle >35 Days, Cycle Variable, Menses 1-7 Days, Menses >/= 8 Days, Menses Variable, Cycle > 4 Weeks Between, No Menses for 6 Months, Heavy Menses, Light Menses, Normal Menses, Spotting Between Cycles, S/P Hysterectomy, Menopausal, Post Menopausal, Premenarche, Abnormal Vaginal B leeding, Dysmenorrhea, Other - Neurological Neurological: absent: As Per HPI, Abnormal Gait, Abnormal Hearing, Abnormal Movements, Abnormal Speech, Behavioral Changes, Burning Sensations, Confusion, Convulsions, Disequilibrium, Dizziness, Numbness, Focal Weakness, Frequent Falls, Headaches, Lack of Coordination, Loss of Vision, Memory Loss, Paresthesias, Radicular Pain, Restless Legs, Sensory Deficit, Syncope, Tingling, Tremor, Vertigo, Weakness, Other Visual Disturbances, Other - Psychiatric Psychiatric: absent: As Per HPI, Abnormal Sleep Pattern, Anhedonia, Anxiety, Auditory Hallucinations, Behavioral Changes, Change in Appetite, Change in Libido, Confusion, Depression, Difficulty Concentrating, Hallucinations, Homicidal Ideation, Hopelessness, Irritability, Memory Loss, Mood Swings, Panic Attacks, Paranoia, Suicidal Ideation, Visual Hallucinations, Tactile Hallucinations, Other - Endocrine Endocrine: absent: As Per HPI, Change in Body Appearance, Change in Libido, Cold Intolorance, Deepening of Voice, Excessive Sweating, Fatigue, Flushing, Heat Intolorance, Increase in Ring/Shoe/Hat Size, Palpitations, Polydipsia, Polyphagia, Polyuria, Other - Hematologic/Lymphatic Hematologic: absent: As Per HPI, Easy Bleeding, Easy Bruising, Lymphadenopathy, Other Past Patient History - Infectious Disease Hx of Infectious Diseases: None - Tetanus Immunizations Tetanus Immunization: Unknown - Past Medical History & Family History Past Medical History?: Yes - Past Social History Smoking Status: Heavy Smoker > 10 Cigarettes Daily Drugs: Cocaine - CARDIAC Hx Hypertension: No - PULMONARY Hx Respiratory Disorders: No Hx Tuberculosis: No - NEUROLOGICAL Hx Seizures: No - HEENT Hx HEENT Problems: No - RENAL Hx Chronic Kidney Disease: No - ENDOCRINE/METABOLIC Hx Endocrine Disorders: No - HEMATOLOGICAL/ONCOLOGICAL Hx Human Immunodeficiency Virus (HIV): Yes - INTEGUMENTARY Hx Dermatological Problems: No - MUSCULOSKELETAL/RHEUMATOLOGICAL Hx Musculoskeletal Disorders: No Hx Falls: No - GASTROINTESTINAL Hx Gastrointestinal Disorders: No - GENITOURINARY/GYNECOLOGICAL Hx Sexually Transmitted Disorders: No - PSYCHIATRIC Hx Anxiety: Yes Hx Bipolar Disorder: Yes Hx Paranoia: Yes Hx Schizophrenia: Yes Hx Substance Use: Yes (cocaine) - SURGICAL HISTORY Hx Amputation: Yes (R Big Toe) - ANESTHESIA Hx Anesthesia: Yes Hx Anesthesia Reactions: No Meds Allergies/Adverse Reactions: Allergies Allergy/AdvReac Type Severity Reaction Status Date / Time ibuprofen Allergy ANAPHYLAXIS Verified 10/17/17 19:41 - Medications Medications: Current Medications Acetaminophen (Tylenol 325mg Tab) 975 mg PO ONCE PRN PRN Reason: Fever >100.4 F Last Admin: 06/24/18 22:28 Dose: 975 mg Albuterol/Ipratropium (Duoneb 3 Mg/0.5 Mg (3 Ml) Ud) 3 ml INH RQ6 [facility] Heparin Sodium (Porcine) (Heparin) 5,000 units SC Q12 [facility] Last Admin: 06/25/18 10:50 Dose: 5,000 units Trimethoprim/Sulfamethoxazole (240 mg/ Dextrose) 250 mls @ 250 mls/hr IVPB Q6H [facility]; Protocol Last Admin: 06/25/18 08:03 Dose: 250 mls/hr Vancomycin HCl 1 gm/ Sodium (Chloride) 250 mls @ 166.7 mls/hr IVPB Q24H [facility]; Protocol Last Admin: 06/25/18 03:10 Dose: 166.7 mls/hr Lactated Ringer's (Lactated Ringer's) 1,000 mls @ 100 mls/hr IV .Q10H [facility] Last Admin: 06/25/18 06:07 Dose: 100 mls/hr Cefepime HCl 1 gm/ Dextrose 50 mls @ 100 mls/hr IVPB Q8H [facility]; Protocol Last Admin: 06/25/18 07:50 Dose: 100 mls/hr Methylprednisolone (Solu-Medrol) 40 mg IVP Q12H [facility] Pantoprazole Sodium (Protonix Inj) 40 mg IVP DAILY [facility] Last Admin: 06/25/18 10:50 Dose: 40 mg Physical Exam - Constitutional Appears: Confused, Cachectic, Chronically Ill - Head Exam Head Exam: ATRAUMATIC, NORMAL INSPECTION, NORMOCEPHALIC - Eye Exam Eye Exam: PERRL Pupil Exam: NORMAL ACCOMODATION - ENT Exam ENT Exam: Mucous Membranes Dry, Normal External Ear Exam - Neck Exam Neck exam: Positive for: Full Rom - Respiratory Exam Respiratory Exam: Decreased Breath Sounds, Prolonged Expiratory Phase, Rhonchi - Cardiovascular Exam Cardiovascular Exam: Tachycardia, REGULAR RHYTHM, +S1, +S2 - GI/Abdominal Exam GI & Abdominal Exam: Diminished Bowel Sounds, Distended, Soft - Rectal Exam Rectal Exam: Deferred - Exam Exam: NORMAL INSPECTION - Extremities Exam Extremities exam: Positive for: full ROM, pedal pulses present - Back Exam Back exam: NORMAL INSPECTION - Neurological Exam Neurological exam: Alert, Altered, CN II-XII Intact, Reflexes Normal - Psychiatric Exam Psychiatric exam: Depressed - Skin Skin Exam: Dry Results - Vital Signs Recent Vital Signs: Last Vital Signs Temp 95.6 F L 06/25/18 10:35 Pulse 70 06/25/18 11:06 Resp 36 H 06/25/18 11:06 BP 81/57 L 06/25/18 11:06 Pulse Ox 100 06/25/18 11:06 - Labs Result Diagrams: 06/25/18 16:51 06/25/18 16:51 Labs: Laboratory Results - last 24 hr 06/24/18 06/24/18 06/24/18 22:40 22:42 22:42 WBC 3.6 L RBC 3.88 Hgb 10.7 L D Hct 32.4 L MCV 83.5 MCH 27.5 MCHC 33.0 RDW 14.4 Plt Count 279 MPV 8.7 Neut % (Auto) 79.3 H Lymph % (Auto) 6.6 L [place] % (Auto) 14.0 H Eos % (Auto) 0.0 Baso % (Auto) 0.1 Neut # (Auto) 2.9 Lymph # (Auto) 0.2 L [place] # (Auto) 0.5 Eos # (Auto) 0.0 Baso # (Auto) 0.0 Neutrophils % (Manual) 82 H Band Neutrophils % Lymphocytes % (Manual) 6 L Monocytes % (Manual) 12 H Platelet Estimate Normal Hypochromasia (manual) Poikilocytosis (manual Anisocytosis (manual) Ovalocytes [place] Cells PT INR APTT Puncture Site pCO2 pO2 22 L HCO3 ABG pH ABG Total CO2 ABG O2 Saturation ABG Base Excess [place] Test ABG Potassium VBG pH 7.29 L VBG pCO2 44 VBG HCO3 19.0 VBG Total CO2 22.6 VBG O2 Sat (Calc) 31.0 L VBG Base Excess -5.3 L VBG Potassium 3.2 L Sodium 141.0 140 Chloride 111.0 H 110 H Glucose 102 Lactate 2.1 Liter Flow Blood Gas Comments Crit Value Called To Crit Value Called By Crit Value Read Back Blood Gas Notified Time Potassium 3.5 L Carbon Dioxide 21 L Anion Gap 13 BUN 64 H Creatinine 1.5 H Est GFR ( Amer) 44 Est GFR (Non-Af Amer) 36 Random Glucose 114 H Calcium 8.4 L Phosphorus 2.1 L Magnesium 2.7 H Total Bilirubin 0.6 AST 64 H D ALT 46 Alkaline Phosphatase 84 Troponin I 0.0540 NT-Pro-B Natriuret Pep 2980 H Total Protein 8.4 H Albumin 3.4 L Globulin 4.9 H Albumin/Globulin Ratio 0.7 L Cortisol AM Sample Arterial Blood Potassium Venous Blood Potassium 3.2 L Urine Color Urine Clarity Urine pH Ur Specific [place] Urine Protein Urine Glucose (UA) Urine Ketones Urine Blood Urine Nitrate Urine Bilirubin Urine Urobilinogen Ur Leukocyte Esterase Urine WBC (Auto) Urine RBC (Auto) Ur Squamous Epith Cells Urine Bacteria Hyaline Casts Urine HCG, Qual Urine Opiates Screen Urine Methadone Screen Ur Barbiturates Screen Ur Phencyclidine Scrn Ur Amphetamines Screen U Benzodiazepines Scrn U Oth Cocaine Metabols U Cannabinoids Screen Blood Type Antibody Screen 06/24/18 06/24/18 06/24/18 22:42 23:25 23:25 WBC RBC Hgb Hct MCV MCH MCHC RDW Plt Count MPV Neut % (Auto) Lymph % (Auto) [place] % (Auto) Eos % (Auto) Baso % (Auto) Neut # (Auto) Lymph # (Auto) [place] # (Auto) Eos # (Auto) Baso # (Auto) Neutrophils % (Manual) Band Neutrophils % Lymphocytes % (Manual) Monocytes % (Manual) Platelet Estimate Hypochromasia (manual) Poikilocytosis (manual Anisocytosis (manual) Ovalocytes [place] Cells PT 13.4 H INR 1.2 APTT 29 Puncture Site pCO2 pO2 HCO3 ABG pH ABG Total CO2 ABG O2 Saturation ABG Base Excess [place] Test ABG Potassium VBG pH VBG pCO2 VBG HCO3 VBG Total CO2 VBG O2 Sat (Calc) VBG Base Excess VBG Potassium Sodium Chloride Glucose Lactate Liter Flow Blood Gas Comments Crit Value Called To Crit Value Called By Crit Value Read Back Blood Gas Notified Time Potassium Carbon Dioxide Anion Gap BUN Creatinine Est GFR ( Amer) Est GFR (Non-Af Amer) Random Glucose Calcium Phosphorus Magnesium Total Bilirubin AST ALT Alkaline Phosphatase Troponin I NT-Pro-B Natriuret Pep Total Protein Albumin Globulin Albumin/Globulin Ratio Cortisol AM Sample Arterial Blood Potassium Venous Blood Potassium Urine Color Yellow Urine Clarity Hazy Urine pH 6.0 Ur Specific [place] 1.019 Urine Protein 2+ H Urine Glucose (UA) Normal Urine Ketones Negative Urine Blood 2+ H Urine Nitrate Negative Urine Bilirubin Negative Urine Urobilinogen Normal Ur Leukocyte Esterase Neg Urine WBC (Auto) 3 Urine RBC (Auto) 12 H Ur Squamous Epith Cells 1 Urine Bacteria Occ H Hyaline Casts 3-5 H Urine HCG, Qual Negative Urine Opiates Screen Negative Urine Methadone Screen Negative Ur Barbiturates Screen Negative Ur Phencyclidine Scrn Negative Ur Amphetamines Screen Negative U Benzodiazepines Scrn Negative U Oth Cocaine Metabols Positive H U Cannabinoids Screen Negative Blood Type Antibody Screen 06/25/18 06/25/18 06/25/18 00:43 05:10 05:17 WBC 4.3 L RBC 3.18 L Hgb 8.5 L D Hct 27.1 L MCV 85.2 MCH 26.9 L MCHC 31.5 L RDW 14.3 Plt Count 206 MPV 9.2 Neut % (Auto) 80.5 H Lymph % (Auto) 8.8 L [place] % (Auto) 10.6 H Eos % (Auto) 0.0 Baso % (Auto) 0.1 Neut # (Auto) 3.5 Lymph # (Auto) 0.4 L [place] # (Auto) 0.5 Eos # (Auto) 0.0 Baso # (Auto) 0.0 Neutrophils % (Manual) 45 L Band Neutrophils % 35 H* Lymphocytes % (Manual) 6 L Monocytes % (Manual) 14 H Platelet Estimate Normal Hypochromasia (manual) Slight Poikilocytosis (manual Slight Anisocytosis (manual) Slight Ovalocytes Slight [place] Cells Slight PT INR APTT Puncture Site R brac pCO2 38 pO2 89 50 HCO3 17.6 L ABG pH 7.26 L ABG Total CO2 18.3 L ABG O2 Saturation 96.7 ABG Base Excess -9.3 L [place] Test Na ABG Potassium 3.2 L VBG pH 7.19 L* VBG pCO2 44 VBG HCO3 15.6 VBG Total CO2 18.2 L VBG O2 Sat (Calc) 82.8 H VBG Base Excess -11.1 L VBG Potassium 3.3 L Sodium 140.0 141.0 Chloride 119.0 H 118.0 H Glucose 123 H 120 H Lactate 1.0 1.2 Liter Flow 3.0 Blood Gas Comments Low ph value 7.19 Crit Value Called To Crit Value Called By Bonilla dash Crit Value Read Back Y Blood Gas Notified Time 516 Potassium Carbon Dioxide Anion Gap BUN Creatinine Est GFR ( Amer) Est GFR (Non-Af Amer) Random Glucose Calcium Phosphorus Magnesium Total Bilirubin AST ALT Alkaline Phosphatase Troponin I NT-Pro-B Natriuret Pep Total Protein Albumin Globulin Albumin/Globulin Ratio Cortisol AM Sample Arterial Blood Potassium 3.2 L Venous Blood Potassium 3.3 L Urine Color Urine Clarity Urine pH Ur Specific [place] Urine Protein Urine Glucose (UA) Urine Ketones Urine Blood Urine Nitrate Urine Bilirubin Urine Urobilinogen Ur Leukocyte Esterase Urine WBC (Auto) Urine RBC (Auto) Ur Squamous Epith Cells Urine Bacteria Hyaline Casts Urine HCG, Qual Urine Opiates Screen Urine Methadone Screen Ur Barbiturates Screen Ur Phencyclidine Scrn Ur Amphetamines Screen U Benzodiazepines Scrn U Oth Cocaine Metabols U Cannabinoids Screen Blood Type Antibody Screen 06/25/18 06/25/18 06/25/18 05:17 05:17 05:17 WBC RBC Hgb Hct MCV MCH MCHC RDW Plt Count MPV Neut % (Auto) Lymph % (Auto) [place] % (Auto) Eos % (Auto) Baso % (Auto) Neut # (Auto) Lymph # (Auto) [place] # (Auto) Eos # (Auto) Baso # (Auto) Neutrophils % (Manual) Band Neutrophils % Lymphocytes % (Manual) Monocytes % (Manual) Platelet Estimate Hypochromasia (manual) Poikilocytosis (manual Anisocytosis (manual) Ovalocytes [place] Cells PT INR APTT Puncture Site pCO2 pO2 HCO3 ABG pH ABG Total CO2 ABG O2 Saturation ABG Base Excess [place] Test ABG Potassium VBG pH VBG pCO2 VBG HCO3 VBG Total CO2 VBG O2 Sat (Calc) VBG Base Excess VBG Potassium Sodium 140 Chloride 117 H Glucose Lactate Liter Flow Blood Gas Comments Crit Value Called To Crit Value Called By Crit Value Read Back Blood Gas Notified Time Potassium 3.7 Carbon Dioxide 15 L Anion Gap 11 BUN 49 H Creatinine 0.9 Est GFR ( Amer) > 60 Est GFR (Non-Af Amer) > 60 Random Glucose 124 H Calcium 6.9 L Phosphorus 3.5 Magnesium 2.4 H Total Bilirubin 0.3 AST 56 H ALT 39 Alkaline Phosphatase 68 Troponin I NT-Pro-B Natriuret Pep Total Protein 6.3 Albumin 2.4 L D Globulin 3.9 Albumin/Globulin Ratio 0.6 L Cortisol AM Sample 43.8 H Arterial Blood Potassium Venous Blood Potassium Urine Color Urine Clarity Urine pH Ur Specific [place] Urine Protein Urine Glucose (UA) Urine Ketones Urine Blood Urine Nitrate Urine Bilirubin Urine Urobilinogen Ur Leukocyte Esterase Urine WBC (Auto) Urine RBC (Auto) Ur Squamous Epith Cells Urine Bacteria Hyaline Casts Urine HCG, Qual Urine Opiates Screen Urine Methadone Screen Ur Barbiturates Screen Ur Phencyclidine Scrn Ur Amphetamines Screen U Benzodiazepines Scrn U Oth Cocaine Metabols U Cannabinoids Screen Blood Type A POSITIVE Antibody Screen Negative Assessment & Plan (1) Altered mental state Status: Acute (2) CHF (congestive heart failure) Status: Acute (3) Cocaine abuse Status: Acute (4) HIV (human immunodeficiency virus infection) Status: Acute (5) Pneumonia Status: Acute (6) SVT (supraventricular tachycardia) Status: Acute (7) Schizophrenia Status: Acute - Assessment and Plan (Free Text) Assessment: 57 yo female with hx of HIV/ AIDS, schizoaffective disorder is admitted with AMS after being found down by EMS Now in ICU with resp failure secondary to pneumonia and possible sepsis Diagnostic considerations include aspiration syndromne , CAP, as well as PCP pneumonia Cultures and serologies will be sent Will obtain T cell count and HIV Viral RNA will review records and resume HAART rx when stable
[2018-06-25 11:32] LABS: ARTERIAL BLOOD GAS HCO3 17.3 mmol/L (21-28); ARTERIAL BLOOD GAS O2 SAT 98.8 % (95-98); ARTERIAL BLOOD GAS PCO2 35 mm/Hg (35-45); ARTERIAL BLOOD GAS PH 7.27 (7.35-7.45); ARTERIAL BLOOD GAS PO2 194 mm/Hg (80-100); ARTERIAL BLOOD GAS TCO2 17.2 mmol/L (22-28)
--- NOTE | 2018-06-25 12:01 | VASCLAB ---
Date of service: 06/25/2018 PROCEDURE: Lower Extremity Venous Duplex Exam. HISTORY: Shortness of breath. PRIORS: Last exam 07/26/2017, normal. TECHNIQUE: Bilateral common femoral, femoral, popliteal and posterior tibial, peroneal and great saphenous veins were evaluated. Flow was assessed with color Doppler, compressibility, assessment of phasic flow and augmentation response. Report prepared by DILSHAD Alatorre FINDINGS: RIGHT: 1. Common Femoral Vein: 1.1. Compressibility - Fully compressible: Thrombus - None : Flow - Phasic: Augmentation -Normal: Reflux - None. 2. Femoral Vein: 2.1. Compressibility - Fully compressible: Thrombus - None : Flow - Phasic: Augmentation -Normal: Reflux - None. 3. Popliteal Vein: 3.1. Compressibility - Fully compressible: Thrombus - None : Flow - Phasic: Augmentation -Normal: Reflux - None. 4. Posterior Tibial Vein: 4.1. Compressibility - Fully compressible: Thrombus - None: Flow - Phasic: Augmentation -Normal: Reflux - None. 5. Peroneal Vein: 5.1. Compressibility - Fully compressible: Thrombus - None: Flow - Phasic: Augmentation -Normal: Reflux - None. 6. Great Saphenous Vein: 6.1. Compressibility - Fully compressible: Thrombus - None: Flow - Phasic: Augmentation - Normal: Reflux - None. LEFT: 1. Common Femoral Vein: 1.1. Compressibility - Fully compressible: Thrombus - None: Flow - Phasic: Augmentation -Normal: Reflux - None. 2. Femoral Vein: 2.1. Compressibility - Fully compressible: Thrombus - None: Flow - Phasic: Augmentation -Normal: Reflux - None. 3. Popliteal Vein: 3.1. Compressibility - Fully compressible: Thrombus - None : Flow - Phasic: Augmentation -Normal: Reflux - None. 4. Posterior Tibial Vein: 4.1. Compressibility - Fully compressible: Thrombus - None: Flow - Phasic: Augmentation -Normal: Reflux - None. 5. Peroneal Vein: 5.1. Compressibility - Fully compressible: Thrombus - None: Flow - Phasic: Augmentation -Normal: Reflux - None. 6. Great Saphenous Vein: 6.1. Compressibility - Fully compressible: Thrombus - None: Flow - Phasic: Augmentation - Normal: Reflux - None. OTHER FINDINGS: Right: None significant. Left: None significant. IMPRESSION: Right: No evidence of deep or superficial vein thrombosis of the right lower extremity. Normal valve function noted of the right side. Left: No evidence of deep or superficial vein thrombosis of the left lower extremity. Normal valve function noted of the left side.
[2018-06-25] MEDS: MethylPREDNISolone 40 mg Vial IVP SCH ×2 (12:38→23:37)
[2018-06-25] MEDS: Albuterol-Ipratrop 3 mg / 0.5 (3 ml) UD INH SCH ×2 (13:31→20:03)
[2018-06-25] MEDS: Sodium Chloride 0.9% 1,000 ML IV SCH ×2 (14:00→23:15)
--- NOTE | 2018-06-25 14:07 | CT ---
Date of service: 06/25/2018 CT chest without IV contrast Indication: b/l pna, sob Technique: Contiguous axial images were obtained through the chest without intravenous contrast enhancement. Sagittal and coronal reconstructions were generated and reviewed. This CT exam was performed using 1 or more of the following dose reduction techniques: Automated exposure control, adjustment of the MAA and/or kV according to patient size, and/or use of iterative reconstruction technique. Radiation dose (DLP): 293.93 MGy-cm. Comparison: Chest x-ray performed 06/25/18, CT chest without IV contrast performed 06/21/18 Findings: Visualized portions of the inferior thyroid gland appear unremarkable. The unenhanced mediastinal and hilar vascular structures appear grossly unremarkable. The heart appears within normal limits of size. Atherosclerotic calcification of the aorta present. Probable small calcified lymph nodes (right mediastinum, precarinal) The. Diffuse reticular nodular, tree-in-bud, and scattered ground-glass opacities throughout bilateral lung fine. More focal consolidations within the dependent left upper lobe, right middle lobe, and lingula. No pleural effusion. No pneumothorax. 3 mm right upper lobe calcified granuloma. Limited visualization of the noncontrast upper abdomen appears grossly unremarkable. No acute osseous abnormality is detected. Impression: Diffuse reticular nodular, tree-in-bud, and scattered ground-glass opacities throughout bilateral lung fine. More focal consolidations within the dependent left upper lobe, right middle lobe, and lingula. Overall appearance suspected to represent bilateral widespread multifocal bronchopneumonia. Recommend short-term follow-up upon completion of treatment of acute symptoms in order to assess for complete resolution. Preliminary impression was provided by [email or web address].
--- NOTE | 2018-06-25 14:25 | RAD ---
HISTORY: Post TLC insertion COMPARISON: Chest x-ray performed 06/24/18 TECHNIQUE: Chest, one view. FINDINGS: Right IJ approach central venous catheter extends the cavoatrial junction. LUNGS: Moderate pulmonary venous congestion. Patchy right hilar/infrahilar infiltrate or atelectasis. Punctate right upper lobe calcified granuloma. Please note that chest x-ray has limited sensitivity for the detection of pulmonary masses. PLEURA: No significant pleural effusion identified. No definite pneumothorax . CARDIOVASCULAR: Mild cardiomegaly. Faint atherosclerotic calcification present. OSSEOUS STRUCTURES: Degenerative changes. VISUALIZED UPPER ABDOMEN: Unremarkable. OTHER FINDINGS: None. IMPRESSION: Right IJ approach central venous catheter extends to the cavoatrial junction. Moderate pulmonary venous congestion. Patchy right hilar/infrahilar infiltrate or atelectasis. Punctate right upper lobe calcified granuloma.
[2018-06-25 16:58] LABS: BASO % 0.1 % (0.0-2.0); LYMPH # 0.4 K/uL (1.0-4.3); LYMPH % 7.7 % (20.0-40.0); MEAN CELL VOLUME 86.4 fL (81.0-99.0); MEAN CORPUSCULAR HEMOGLOBIN 28.1 pg (27.0-31.0); MEAN CORPUSCULAR HGB CONC 32.5 g/dL (33.0-37.0); MEAN PLATELET VOLUME 8.9 fL (7.2-11.7); MONO # 0.4 K/uL (0.0-0.8); MONO % 6.6 % (0.0-10.0); NEUT # 4.8 K/uL (1.8-7.0); NEUT % 85.6 % (50.0-75.0); NRBC % 0.1 % (0.0-2.0); PLATELET COUNT 253 K/uL (130-400); RBC 4.06 Mil/uL (3.80-5.20); RED CELL DISTRIBUTION WIDTH 15.5 % (11.5-14.5); WHITE BLOOD COUNT 5.6 K/uL (4.8-10.8)
[2018-06-25 16:59] LABS: HEMOGLOBIN 11.4 g/dL (11.0-16.0)
[2018-06-25 17:17] LABS: ALB/GLOB RATIO 0.6 (1.0-2.1); ALBUMIN 2.3 g/dL (3.5-5.0); ALT/SGPT 31 U/L (9-52); AST/SGOT 38 U/L (14-36); BLOOD UREA NITROGEN 39 mg/dL (7-17); CALCIUM 7.5 mg/dl (8.6-10.4); GFR NON-AFRICAN AMERICAN > 60
[2018-06-25 17:31] LABS: ANISOCYTOSIS SLIGHT; BANDS 20 % (0-2); BURR CELLS SLIGHT; LYMPHOCYTE 5 % (20-40); MONOCYTE 4 % (0-10); NEUTROPHIL 70 % (50-75); OVALOCYTES SLIGHT; PLATELET ESTIMATE NORMAL (NORMAL); POIKILOCYTOSIS SLIGHT; REACTIVE LYMPHOCYTES 1 % (0-0); TOTAL CELLS COUNTED 100
--- NOTE | 2018-06-25 18:20 | CP.PCM.HP ---
Past Patient History - Infectious Disease Hx of Infectious Diseases: None - Tetanus Immunizations Tetanus Immunization: Unknown - Past Medical History & Family History Past Medical History?: Yes - Past Social History Smoking Status: Heavy Smoker > 10 Cigarettes Daily Drugs: Cocaine - CARDIAC Hx Congestive Heart Failure: Yes Hx Hypertension: No - PULMONARY Hx Respiratory Disorders: No Hx Tuberculosis: No - NEUROLOGICAL Hx Seizures: No - HEENT Hx HEENT Problems: No - RENAL Hx Chronic Kidney Disease: No - ENDOCRINE/METABOLIC Hx Endocrine Disorders: No - HEMATOLOGICAL/ONCOLOGICAL Hx Human Immunodeficiency Virus (HIV): Yes - INTEGUMENTARY Hx Dermatological Problems: No - MUSCULOSKELETAL/RHEUMATOLOGICAL Hx Falls: No - GASTROINTESTINAL Hx Gastrointestinal Disorders: No - GENITOURINARY/GYNECOLOGICAL Hx Sexually Transmitted Disorders: No - PSYCHIATRIC Hx Anxiety: Yes Hx Bipolar Disorder: Yes Hx Paranoia: Yes Hx Schizophrenia: Yes Hx Substance Use: Yes (cocaine) - SURGICAL HISTORY Hx Amputation: Yes (R [place]) - ANESTHESIA Hx Anesthesia: Yes Hx Anesthesia Reactions: No Meds Allergies/Adverse Reactions: Allergies Allergy/AdvReac Type Severity Reaction Status Date / Time ibuprofen Allergy ANAPHYLAXIS Verified 10/17/17 19:41 Physical Exam - Constitutional Appears: Well - Head Exam Head Exam: ATRAUMATIC, NORMAL INSPECTION, NORMOCEPHALIC - Eye Exam Eye Exam: EOMI, Normal appearance, PERRL Pupil Exam: NORMAL ACCOMODATION, PERRL - ENT Exam ENT Exam: Mucous Membranes Moist, Normal Exam - Neck Exam Neck exam: Positive for: Normal Inspection - Respiratory Exam Respiratory Exam: Decreased Breath Sounds - Cardiovascular Exam Cardiovascular Exam: REGULAR RHYTHM, +S1, +S2 - GI/Abdominal Exam GI & Abdominal Exam: Diminished Bowel Sounds, Soft - Rectal Exam Rectal Exam: Deferred Results - Vital Signs Recent Vital Signs: Last Vital Signs Temp 96.4 F L 06/25/18 16:00 Pulse 56 L 06/25/18 18:00 Resp 28 H 06/25/18 18:00 BP 118/76 06/25/18 17:51 Pulse Ox 100 06/25/18 18:00 - Labs Result Diagrams: 06/25/18 16:51 06/25/18 16:51 Labs: Laboratory Results - last 24 hr 06/24/18 06/24/18 06/24/18 22:40 22:42 22:42 WBC 3.6 L RBC 3.88 Hgb 10.7 L D Hct 32.4 L MCV 83.5 MCH 27.5 MCHC 33.0 RDW 14.4 Plt Count 279 MPV 8.7 Neut % (Auto) 79.3 H Lymph % (Auto) 6.6 L [place] % (Auto) 14.0 H Eos % (Auto) 0.0 Baso % (Auto) 0.1 Neut # (Auto) 2.9 Lymph # (Auto) 0.2 L [place] # (Auto) 0.5 Eos # (Auto) 0.0 Baso # (Auto) 0.0 Neutrophils % (Manual) 82 H Band Neutrophils % Lymphocytes % (Manual) 6 L Reactive Lymphs % Monocytes % (Manual) 12 H Platelet Estimate Normal Hypochromasia (manual) Poikilocytosis (manual Anisocytosis (manual) Ovalocytes [place] Cells PT INR APTT Puncture Site pCO2 pO2 22 L HCO3 ABG pH ABG Total CO2 ABG O2 Saturation ABG Base Excess [place] Test ABG Potassium VBG pH 7.29 L VBG pCO2 44 VBG HCO3 19.0 VBG Total CO2 22.6 VBG O2 Sat (Calc) 31.0 L VBG Base Excess -5.3 L VBG Potassium 3.2 L A-a O2 Difference Respiratory Index Sodium 141.0 140 Chloride 111.0 H 110 H Glucose 102 Lactate 2.1 Liter Flow Vent Mode FiO2 Inspiratory BiPAP Expiratory BiPAP Blood Gas Comments Crit Value Called To Crit Value Called By Crit Value Read Back Blood Gas Notified Time Potassium 3.5 L Carbon Dioxide 21 L Anion Gap 13 BUN 64 H Creatinine 1.5 H Est GFR ( Amer) 44 Est GFR (Non-Af Amer) 36 Random Glucose 114 H Calcium 8.4 L Phosphorus 2.1 L Magnesium 2.7 H Total Bilirubin 0.6 AST 64 H D ALT 46 Alkaline Phosphatase 84 Lactate Dehydrogenase Troponin I 0.0540 NT-Pro-B Natriuret Pep 2980 H Total Protein 8.4 H Albumin 3.4 L Globulin 4.9 H Albumin/Globulin Ratio 0.7 L Cortisol AM Sample Arterial Blood Potassium Venous Blood Potassium 3.2 L Urine Color Urine Clarity Urine pH Ur Specific [place] Urine Protein Urine Glucose (UA) Urine Ketones Urine Blood Urine Nitrate Urine Bilirubin Urine Urobilinogen Ur Leukocyte Esterase Urine WBC (Auto) Urine RBC (Auto) Ur Squamous Epith Cells Urine Bacteria Hyaline Casts Urine HCG, Qual Urine Opiates Screen Urine Methadone Screen Ur Barbiturates Screen Ur Phencyclidine Scrn Ur Amphetamines Screen U Benzodiazepines Scrn U Oth Cocaine Metabols U Cannabinoids Screen Blood Type Blood Type Confirm Antibody Screen 06/24/18 06/24/18 06/24/18 22:42 23:25 23:25 WBC RBC Hgb Hct MCV MCH MCHC RDW Plt Count MPV Neut % (Auto) Lymph % (Auto) [place] % (Auto) Eos % (Auto) Baso % (Auto) Neut # (Auto) Lymph # (Auto) [place] # (Auto) Eos # (Auto) Baso # (Auto) Neutrophils % (Manual) Band Neutrophils % Lymphocytes % (Manual) Reactive Lymphs % Monocytes % (Manual) Platelet Estimate Hypochromasia (manual) Poikilocytosis (manual Anisocytosis (manual) Ovalocytes [place] Cells PT 13.4 H INR 1.2 APTT 29 Puncture Site pCO2 pO2 HCO3 ABG pH ABG Total CO2 ABG O2 Saturation ABG Base Excess [place] Test ABG Potassium VBG pH VBG pCO2 VBG HCO3 VBG Total CO2 VBG O2 Sat (Calc) VBG Base Excess VBG Potassium A-a O2 Difference Respiratory Index Sodium Chloride Glucose Lactate Liter Flow Vent Mode FiO2 Inspiratory BiPAP Expiratory BiPAP Blood Gas Comments Crit Value Called To Crit Value Called By Crit Value Read Back Blood Gas Notified Time Potassium Carbon Dioxide Anion Gap BUN Creatinine Est GFR ( Amer) Est GFR (Non-Af Amer) Random Glucose Calcium Phosphorus Magnesium Total Bilirubin AST ALT Alkaline Phosphatase Lactate Dehydrogenase Troponin I NT-Pro-B Natriuret Pep Total Protein Albumin Globulin Albumin/Globulin Ratio Cortisol AM Sample Arterial Blood Potassium Venous Blood Potassium Urine Color Yellow Urine Clarity Hazy Urine pH 6.0 Ur Specific [place] 1.019 Urine Protein 2+ H Urine Glucose (UA) Normal Urine Ketones Negative Urine Blood 2+ H Urine Nitrate Negative Urine Bilirubin Negative Urine Urobilinogen Normal Ur Leukocyte Esterase Neg Urine WBC (Auto) 3 Urine RBC (Auto) 12 H Ur Squamous Epith Cells 1 Urine Bacteria Occ H Hyaline Casts 3-5 H Urine HCG, Qual Negative Urine Opiates Screen Negative Urine Methadone Screen Negative Ur Barbiturates Screen Negative Ur Phencyclidine Scrn Negative Ur Amphetamines Screen Negative U Benzodiazepines Scrn Negative U Oth Cocaine Metabols Positive H U Cannabinoids Screen Negative Blood Type Blood Type Confirm Antibody Screen 06/25/18 06/25/1818 00:43 05:10 05:17 WBC 4.3 L RBC 3.18 L Hgb 8.5 L D Hct 27.1 L MCV 85.2 MCH 26.9 L MCHC 31.5 L RDW 14.3 Plt Count 206 MPV 9.2 Neut % (Auto) 80.5 H Lymph % (Auto) 8.8 L [place] % (Auto) 10.6 H Eos % (Auto) 0.0 Baso % (Auto) 0.1 Neut # (Auto) 3.5 Lymph # (Auto) 0.4 L [place] # (Auto) 0.5 Eos # (Auto) 0.0 Baso # (Auto) 0.0 Neutrophils % (Manual) 45 L Band Neutrophils % 35 H* Lymphocytes % (Manual) 6 L Reactive Lymphs % Monocytes % (Manual) 14 H Platelet Estimate Normal Hypochromasia (manual) Slight Poikilocytosis (manual Slight Anisocytosis (manual) Slight Ovalocytes Slight [place] Cells Slight PT INR APTT Puncture Site R brac pCO2 38 pO2 89 50 HCO3 17.6 L ABG pH 7.26 L ABG Total CO2 18.3 L ABG O2 Saturation 96.7 ABG Base Excess -9.3 L [place] Test Na ABG Potassium 3.2 L VBG pH 7.19 L* VBG pCO2 44 VBG HCO3 15.6 VBG Total CO2 18.2 L VBG O2 Sat (Calc) 82.8 H VBG Base Excess -11.1 L VBG Potassium 3.3 L A-a O2 Difference Respiratory Index Sodium 140.0 141.0 Chloride 119.0 H 118.0 H Glucose 123 H 120 H Lactate 1.0 1.2 Liter Flow 3.0 Vent Mode FiO2 Inspiratory BiPAP Expiratory BiPAP Blood Gas Comments Low ph value 7.19 Crit Value Called To Crit Value Called By [place] dash Crit Value Read Back Y Blood Gas Notified Time 516 Potassium Carbon Dioxide Anion Gap BUN Creatinine Est GFR ( Amer) Est GFR (Non-Af Amer) Random Glucose Calcium Phosphorus Magnesium Total Bilirubin AST ALT Alkaline Phosphatase Lactate Dehydrogenase Troponin I NT-Pro-B Natriuret Pep Total Protein Albumin Globulin Albumin/Globulin Ratio Cortisol AM Sample Arterial Blood Potassium 3.2 L Venous Blood Potassium 3.3 L Urine Color Urine Clarity Urine pH Ur Specific [place] Urine Protein Urine Glucose (UA) Urine Ketones Urine Blood Urine Nitrate Urine Bilirubin Urine Urobilinogen Ur Leukocyte Esterase Urine WBC (Auto) Urine RBC (Auto) Ur Squamous Epith Cells Urine Bacteria Hyaline Casts Urine HCG, Qual Urine Opiates Screen Urine Methadone Screen Ur Barbiturates Screen Ur Phencyclidine Scrn Ur Amphetamines Screen U Benzodiazepines Scrn U Oth Cocaine Metabols U Cannabinoids Screen Blood Type Blood Type Confirm Antibody Screen 06/25/18 06/25/18 06/25/18 05:17 05:17 05:17 WBC RBC Hgb Hct MCV MCH MCHC RDW Plt Count MPV Neut % (Auto) Lymph % (Auto) [place] % (Auto) Eos % (Auto) Baso % (Auto) Neut # (Auto) Lymph # (Auto) [place] # (Auto) Eos # (Auto) Baso # (Auto) Neutrophils % (Manual) Band Neutrophils % Lymphocytes % (Manual) Reactive Lymphs % Monocytes % (Manual) Platelet Estimate Hypochromasia (manual) Poikilocytosis (manual Anisocytosis (manual) Ovalocytes [place] Cells PT INR APTT Puncture Site pCO2 pO2 HCO3 ABG pH ABG Total CO2 ABG O2 Saturation ABG Base Excess [place] Test ABG Potassium VBG pH VBG pCO2 VBG HCO3 VBG Total CO2 VBG O2 Sat (Calc) VBG Base Excess VBG Potassium A-a O2 Difference Respiratory Index Sodium 140 Chloride 117 H Glucose Lactate Liter Flow Vent Mode FiO2 Inspiratory BiPAP Expiratory BiPAP Blood Gas Comments Crit Value Called To Crit Value Called By Crit Value Read Back Blood Gas Notified Time Potassium 3.7 Carbon Dioxide 15 L Anion Gap 11 BUN 49 H Creatinine 0.9 Est GFR ( Amer) > 60 Est GFR (Non-Af Amer) > 60 Random Glucose 124 H Calcium 6.9 L Phosphorus 3.5 Magnesium 2.4 H Total Bilirubin 0.3 AST 56 H ALT 39 Alkaline Phosphatase 68 Lactate Dehydrogenase 727 H Troponin I NT-Pro-B Natriuret Pep Total Protein 6.3 Albumin 2.4 L D Globulin 3.9 Albumin/Globulin Ratio 0.6 L Cortisol AM Sample 43.8 H Arterial Blood Potassium Venous Blood Potassium Urine Color Urine Clarity Urine pH Ur Specific [place] Urine Protein Urine Glucose (UA) Urine Ketones Urine Blood Urine Nitrate Urine Bilirubin Urine Urobilinogen Ur Leukocyte Esterase Urine WBC (Auto) Urine RBC (Auto) Ur Squamous Epith Cells Urine Bacteria Hyaline Casts Urine HCG, Qual Urine Opiates Screen Urine Methadone Screen Ur Barbiturates Screen Ur Phencyclidine Scrn Ur Amphetamines Screen U Benzodiazepines Scrn U Oth Cocaine Metabols U Cannabinoids Screen Blood Type A POSITIVE Blood Type Confirm A POSITIVE Antibody Screen Negative 06/25/18 06/25/18 06/25/18 11:29 16:51 16:51 WBC 5.6 RBC 4.06 Hgb 11.4 D Hct 35.1 MCV 86.4 MCH 28.1 MCHC 32.5 L RDW 15.5 H Plt Count 253 MPV 8.9 Neut % (Auto) 85.6 H Lymph % (Auto) 7.7 L [place] % (Auto) 6.6 Eos % (Auto) 0.0 Baso % (Auto) 0.1 Neut # (Auto) 4.8 Lymph # (Auto) 0.4 L [place] # (Auto) 0.4 Eos # (Auto) 0.0 Baso # (Auto) 0.0 Neutrophils % (Manual) 70 Band Neutrophils % 20 H* Lymphocytes % (Manual) 5 L Reactive Lymphs % 1 H Monocytes % (Manual) 4 Platelet Estimate Normal Hypochromasia (manual) Poikilocytosis (manual Slight Anisocytosis (manual) Slight Ovalocytes Slight [place] Cells Slight PT INR APTT Puncture Site Rba pCO2 35 pO2 194 H HCO3 17.3 L ABG pH 7.27 L ABG Total CO2 17.2 L ABG O2 Saturation 98.8 H ABG Base Excess -9.9 L [place] Test Na ABG Potassium 3.3 L VBG pH VBG pCO2 VBG HCO3 VBG Total CO2 VBG O2 Sat (Calc) VBG Base Excess VBG Potassium A-a O2 Difference 47.0 Respiratory Index 0.2 Sodium 142.0 139 Chloride 121.0 H 116 H Glucose 128 H Lactate 0.9 Liter Flow Vent Mode Bipap FiO2 40.0 Inspiratory BiPAP 12 Expiratory BiPAP 6 Blood Gas Comments Crit Value Called To Crit Value Called By Crit Value Read Back Blood Gas Notified Time Potassium 3.7 Carbon Dioxide 17 L Anion Gap 9 L BUN 39 H Creatinine 0.8 Est GFR ( Amer) > 60 Est GFR (Non-Af Amer) > 60 Random Glucose 173 H Calcium 7.5 L Phosphorus 3.0 Magnesium 2.3 Total Bilirubin 0.3 AST 38 H D ALT 31 Alkaline Phosphatase 58 Lactate Dehydrogenase Troponin I NT-Pro-B Natriuret Pep Total Protein 6.2 L Albumin 2.3 L Globulin 3.9 Albumin/Globulin Ratio 0.6 L Cortisol AM Sample Arterial Blood Potassium 3.3 L Venous Blood Potassium Urine Color Urine Clarity Urine pH Ur Specific [place] Urine Protein Urine Glucose (UA) Urine Ketones Urine Blood Urine Nitrate Urine Bilirubin Urine Urobilinogen Ur Leukocyte Esterase Urine WBC (Auto) Urine RBC (Auto) Ur Squamous Epith Cells Urine Bacteria Hyaline Casts Urine HCG, Qual Urine Opiates Screen Urine Methadone Screen Ur Barbiturates Screen Ur Phencyclidine Scrn Ur Amphetamines Screen U Benzodiazepines Scrn U Oth Cocaine Metabols U Cannabinoids Screen Blood Type Blood Type Confirm Antibody Screen
[2018-06-25 21:09] LABS: VENOUS BLOOD GAS BASE EXCESS -7.9 mmol/L (0.0-2.0); VENOUS BLOOD GAS PCO2 39 mmHg (40-60); VENOUS BLOOD GAS PO2 43 mm/Hg (30-55); VENOUS BLOOD PH 7.28 (7.32-7.43)
[2018-06-26] MEDS: Albuterol-Ipratrop 3 mg / 0.5 (3 ml) UD INH SCH ×4 (03:12→19:28)
[2018-06-26 05:10] LABS: BASO % 0.3 % (0.0-2.0); HEMOGLOBIN 10.7 g/dL (11.0-16.0); LYMPH # 0.4 K/uL (1.0-4.3); LYMPH % 7.7 % (20.0-40.0); MEAN CORPUSCULAR HEMOGLOBIN 27.9 pg (27.0-31.0); MEAN CORPUSCULAR HGB CONC 32.4 g/dL (33.0-37.0); MONO # 0.4 K/uL (0.0-0.8); MONO % 7.2 % (0.0-10.0); NEUT # 4.8 K/uL (1.8-7.0); NEUT % 84.8 % (50.0-75.0); NRBC % 0.2 % (0.0-2.0); PLATELET COUNT 216 K/uL (130-400); RBC 3.85 Mil/uL (3.80-5.20); RED CELL DISTRIBUTION WIDTH 15.5 % (11.5-14.5); WHITE BLOOD COUNT 5.6 K/uL (4.8-10.8)
[2018-06-26 05:29] LABS: ALB/GLOB RATIO 0.6 (1.0-2.1); ALBUMIN 2.2 g/dL (3.5-5.0); ALT/SGPT 33 U/L (9-52); AST/SGOT 29 U/L (14-36); BLOOD UREA NITROGEN 32 mg/dL (7-17); CALCIUM 7.5 mg/dl (8.6-10.4); GFR NON-AFRICAN AMERICAN > 60
[2018-06-26] MEDS: Sulfamethoxazole/Trimethoprim 240 MG in Dextrose 5% In Water 250 ML IVPB SCH ×3 (05:31→17:36)
[2018-06-26] MEDS: Sodium Chloride 0.9% 1,000 ML IV SCH ×4 (05:34→22:56)
[2018-06-26] MEDS ORDERED: Potassium & Sodium Phosphate PO ONE (08:00)
[2018-06-26 08:23] LABS: ANISOCYTOSIS SLIGHT; BANDS 8 % (0-2); BURR CELLS SLIGHT; HYPOCHROMIC SLIGHT; LYMPHOCYTE 4 % (20-40); MONOCYTE 5 % (0-10); NEUTROPHIL 83 % (50-75); NUCLEATED RED BLOOD CELL 1 % (0-0); OVALOCYTES SLIGHT; PLATELET ESTIMATE NORMAL (NORMAL); POIKILOCYTOSIS SLIGHT; TOTAL CELLS COUNTED 100
[2018-06-26 08:25] LABS: LARGE PLATELETS PRESENT
[2018-06-26] MEDS ORDERED: Acetylcysteine 20% Inhal Soln (4ml) INH SCH (09:00)
[2018-06-26 09:06] LABS: ARTERIAL BLOOD GAS HCO3 18.6 mmol/L (21-28); ARTERIAL BLOOD GAS HEMOGLOBIN 10.7 g/dL (11.7-17.4); ARTERIAL BLOOD GAS O2 SAT 90.7 % (95-98); ARTERIAL BLOOD GAS PCO2 26 mm/Hg (35-45); ARTERIAL BLOOD GAS PH 7.39 (7.35-7.45); ARTERIAL BLOOD GAS PO2 52 mm/Hg (80-100); ARTERIAL BLOOD GAS TCO2 16.5 mmol/L (22-28)
[2018-06-26] MEDS: MethylPREDNISolone 40 mg Vial IVP SCH (12:17)
--- NOTE | 2018-06-26 13:21 | CP.PCM.PN ---
Subjective - Date & Time of Evaluation Date of Evaluation: 06/26/18 Time of Evaluation: 08:00 - Subjective Subjective: less sob weak bedridden Objective - Vital Signs/Intake and Output Vital Signs (last 24 hours): Temp Pulse Resp BP Pulse Ox 97.5 F L 72 28 H 100/53 L 92 L 06/26/18 12:00 06/26/18 12:01 06/26/18 13:17 06/26/18 12:01 06/26/18 12:01 Intake and Output: 06/26/18 06/26/18 06:59 18:59 Intake Total 1858.2 890.2 Output Total 920 280 Balance 938.2 610.2 - Medications Medications: Current Medications Acetaminophen (Tylenol 325mg Tab) 975 mg PO ONCE PRN PRN Reason: Fever >100.4 F Last Admin: 06/24/18 22:28 Dose: 975 mg Acetylcysteine (Acetylcysteine 20%) 4 ml INH Q6H KHARI Last Admin: 06/26/18 13:15 Dose: 4 ml Albuterol/Ipratropium (Duoneb 3 Mg/0.5 Mg (3 Ml) Ud) 3 ml INH RQ6 KHARI Last Admin: 06/26/18 13:15 Dose: 3 ml Guaifenesin (Mucinex [place]) 600 mg PO BID KHARI Heparin Sodium (Porcine) (Heparin) 5,000 units SC Q12 KHARI Last Admin: 06/26/18 09:08 Dose: 5,000 units Trimethoprim/Sulfamethoxazole (240 mg/ Dextrose) 250 mls @ 250 mls/hr IVPB Q6H K[facility]ARI; Protocol Last Admin: 06/26/18 05:31 Dose: 250 mls/hr Cefepime HCl 1 gm/ Dextrose 50 mls @ 100 mls/hr IVPB Q8H [facility]I; Protocol Last Admin: 06/26/18 06:56 Dose: 100 mls/hr Norepinephrine Bitartrate 4 mg (/ Sodium Chloride) 250 mls @ 15 mls/hr IV .[id number] PRN; Protocol PRN Reason: TITRATE PER MD ORDER Last Titration: 06/26/18 05:23 Dose: 1.01 mcg/min, 3.8 mls/hr Sodium Chloride (Sodium Chloride 0.9%) 1,000 mls @ 125 mls/hr IV .Q8H KHARI Last Admin: 06/26/18 05:34 Dose: 125 mls/hr Vancomycin HCl 1 gm/ Sodium (Chloride) 250 mls @ 166.7 mls/hr IVPB Q24H [facility]; Protocol Last Admin: 06/26/18 02:31 Dose: 166.7 mls/hr Influenza Virus Vaccine (Fluzone Quad [id number]) 60 mcg IM .ONCE ONE Stop: 06/27/18 10:01 Methylprednisolone (Solu-Medrol) 40 mg IVP Q12H [facility] Last Admin: 06/26/18 12:17 Dose: 40 mg Pantoprazole Sodium (Protonix Inj) 40 mg IVP DAILY [facility] Last Admin: 06/26/18 09:08 Dose: 40 mg Pneumococcal Polyvalent Vaccine (Pneumovax 23 Vaccine) 0.5 ml IM .ONCE ONE Stop: 06/27/18 10:01 - Labs Labs: 06/26/18 05:03 06/26/18 05:03 PT 13.4 SECONDS (9.7-12.2) H 06/24/18 22:42 INR 1.2 06/24/18 22:42 APTT 29 SECONDS (21-34) 06/24/18 22:42 - Constitutional Appears: Non-toxic, Chronically Ill - Head Exam Head Exam: NORMOCEPHALIC - Eye Exam Eye Exam: absent: Scleral icterus - ENT Exam ENT Exam: Mucous Membranes Dry - Neck Exam Neck Exam: absent: Lymphadenopathy - Respiratory Exam Respiratory Exam: Decreased Breath Sounds - Cardiovascular Exam Cardiovascular Exam: REGULAR RHYTHM - GI/Abdominal Exam GI & Abdominal Exam: Distended Assessment and Plan (1) Altered mental state Status: Acute (2) CHF (congestive heart failure) Status: Acute (3) Cocaine abuse Status: Acute (4) HIV (human immunodeficiency virus infection) Status: Acute (5) Pneumonia Status: Acute (6) SVT (supraventricular tachycardia) Status: Acute (7) Schizophrenia Status: Acute
[2018-06-26] MEDS: guaiFENesin 600 mg ER Tab PO SCH (17:36)
--- NOTE | 2018-06-26 18:05 | CP.CCUPN ---
<Evon Bañuelos - Last Filed: 06/26/18 17:55> CCU Subjective - Physician Review Events Since Last Encounter (Free Text): 06/26/18 17:55 No acute events overnight Subjective (Free Text): 06/26/18 17:55 Patient seen and evaluated at bedside this morning. No acute events. Patient is alert. Patient denies chest pain, shortness of breath, dizziness, fever, chills, nausea and/or vomiting. Levophed is being tapered. Critical Care Time Spent (in minutes): 35 CCU Objective - Vital Signs / Intake & Output Vital Signs (Last 4 hours): Vital Signs Temp Pulse Resp BP Pulse Ox 06/26/18 17:01 95 H 43 H 93/55 L 95 06/26/18 17:00 98 H 45 H 97 06/26/18 16:36 31 H 06/26/18 16:01 99 H 27 H 92/64 L 96 06/26/18 16:00 97.7 F 102 H 13 98 06/26/18 15:15 90 27 H 90/43 L 97 06/26/18 15:01 78 34 H 86/47 L 96 06/26/18 15:00 84 34 H 97 06/26/18 14:01 92 H 24 95/57 L 96 06/26/18 14:00 91 H 43 H 97 Intake and Output (Last 8hrs): Intake & Output 06/26/18 06/26/18 06/26/18 06:59 14:59 22:59 Intake Total 1467.7 1167.2 745 Output Total 700 390 100 Balance 767.7 777.2 645 Weight 138 lb 0.15 oz Intake: IV 65 27 Intake, IV Amount 1402.7 1090.2 375 Left Forearm 0 0 0 Right Distal Port 52.7 15.2 0 Internal Jugular Right Medial Port 1350 1075 375 Internal Jugular Right Wrist 0 0 0 Oral 0 50 370 Output: Urine 700 390 100 Urethral (Queen) 700 390 Urine, Voided 100 Other: # Voids Urine, Voided 0 # Bowel Movements 0 0 0 - Physical Exam Head: Positive for: Atraumatic, Normocephalic Pupils: Positive for: PERRL Extroacular Muscles: Positive for: EOMI Conjunctiva: Positive for: Normal Mouth: Positive for: Moist Mucous Membranes, Normal Tounge Pharnyx: Negative for: Uvular Deviation Respiratory/Chest: Positive for: Decreased Breath Sounds (bilateral upper lobes). Negative for: Wheezes, Rales, Rhonchi Cardiovascular: Positive for: Regular Rate and Rhythm, Normal S1, S2 Abdomen: Negative for: Tenderness, Distention Upper Extremity: Positive for: Normal Inspection. Negative for: Edema Lower Extremity: Positive for: Normal Inspection. Negative for: Edema Neurological: Positive for: CN II-XII Intact Skin: Positive for: Warm, Diaphoretic Psychiatric: Positive for: Lethargic - Medications Active Medications: Active Medications Generic Name Dose Route Start Last Admin Trade Name Freq PRN Reason Stop Dose Admin Acetaminophen 975 mg 06/24/18 22:16 06/24/18 22:28 Tylenol 325mg Tab PO 975 mg ONCE PRN Administration Fever >100.4 F Acetylcysteine 4 ml 06/26/18 20:00 Acetylcysteine 20% INH RQ6 KHARI Albuterol/Ipratropium 3 ml 06/25/18 14:00 06/26/18 13:15 Duoneb 3 Mg/0.5 Mg (3 Ml) Ud INH 3 ml RQ6 KHARI Administration Guaifenesin 600 mg 06/26/18 18:00 06/26/18 17:36 Mucinex La PO 600 mg BID KHARI Administration Heparin Sodium (Porcine) 5,000 units 06/25/18 10:00 06/26/18 09:08 Heparin SC 5,000 units Q12 KHARI Administration Trimethoprim/Sulfamethoxazole 250 mls @ 250 mls/hr 06/25/18 00:30 06/26/18 17:36 240 mg/ Dextrose IVPB 250 mls/hr Q6H KHARI Administration Protocol Cefepime HCl 1 gm/ Dextrose 50 mls @ 100 mls/hr 06/25/18 07:00 06/26/18 15:08 IVPB 100 mls/hr Q8H KHARI Administration Protocol Norepinephrine Bitartrate 4 mg 250 mls @ 15 mls/hr 06/25/18 12:35 06/26/18 11:10 / Sodium Chloride IV 0 mcg/min .[id number] PRN 0 mls/hr TITRATE PER MD ORDER Titration Protocol 4 MCG/MIN Sodium Chloride 1,000 mls @ 125 mls/hr 06/25/18 14:00 06/26/18 17:37 Sodium Chloride 0.9% IV 125 mls/hr .Q8H KHARI Administration Vancomycin HCl 1 gm/ Sodium 250 mls @ 166.7 mls/hr 06/26/18 03:00 06/26/18 02:31 Chloride IVPB 166.7 mls/hr Q24H KHARI Administration Protocol Influenza Virus Vaccine 60 mcg 06/27/18 10:00 Fluzone Quad [id number] IM 06/27/18 10:01 .ONCE ONE Methylprednisolone 40 mg 06/25/18 12:00 06/26/18 12:17 Solu-Medrol IVP 40 mg Q12H KHARI Administration Pantoprazole Sodium 40 mg 06/25/18 10:45 06/26/18 09:08 Protonix Inj IVP 40 mg DAILY KHARI Administration Pneumococcal Polyvalent Vaccine 0.5 ml 06/27/18 10:00 Pneumovax 23 Vaccine IM 06/27/18 10:01 .ONCE ONE - Patient Studies Lab Studies: Microbiology Studies 06/24/18 23:25 Urine Culture - Final Urine,Catheterized No Growth (<1,000 CFU/ML) 06/24/18 20:00 Blood Culture - Preliminary Blood NO GROWTH AFTER 24 HOURS 06/24/18 22:30 Blood Culture - Preliminary Blood NO GROWTH AFTER 24 HOURS 06/25/18 07:41 MRSA Culture (Admit) - Final Naris MRSA NOT DETECTED Lab Studies 06/26/18 06/26/18 06/26/18 Range/Units 09:03 05:03 05:03 WBC 5.6 (4.8-10.8) K/uL RBC 3.85 (3.80-5.20) Mil/uL Hgb 10.7 L (11.0-16.0) g/dL Hct 33.1 L (34.0-47.0) % MCV 86.0 (81.0-99.0) fL MCH 27.9 (27.0-31.0) pg MCHC 32.4 L (33.0-37.0) g/dL RDW 15.5 H (11.5-14.5) % Plt Count 216 (130-400) K/uL MPV 9.0 (7.2-11.7) fL Neut % (Auto) 84.8 H (50.0-75.0) % Lymph % (Auto) 7.7 L (20.0-40.0) % Cherry % (Auto) 7.2 (0.0-10.0) % Eos % (Auto) 0.0 (0.0-4.0) % Baso % (Auto) 0.3 (0.0-2.0) % Neut # (Auto) 4.8 (1.8-7.0) K/uL Lymph # (Auto) 0.4 L (1.0-4.3) K/uL Cherry # (Auto) 0.4 (0.0-0.8) K/uL Eos # (Auto) 0.0 (0.0-0.7) K/uL Baso # (Auto) 0.0 (0.0-0.2) K/uL Neutrophils % (Manual) 83 H (50-75) % Band Neutrophils % 8 H (0-2) % Lymphocytes % (Manual) 4 L (20-40) % Monocytes % (Manual) 5 (0-10) % Nucleated RBC % 1 H (0-0) % Platelet Estimate Normal (NORMAL) Large Platelets Present Hypochromasia (manual) Slight Poikilocytosis (manual Slight Anisocytosis (manual) Slight Ovalocytes Slight [place] Cells Slight Puncture Site Rba pCO2 26 L (35-45) mm/Hg pO2 52 L (30-55) mm/Hg HCO3 18.6 L (21-28) mmol/L ABG pH 7.39 (7.35-7.45) ABG Total CO2 16.5 L (22-28) mmol/L ABG O2 Saturation 90.7 L (95-98) % ABG Base Excess -7.9 L (-2.0-3.0) mmol/L ABG Hemoglobin 10.7 L (11.7-17.4) g/dL ABG Carboxyhemoglobin 1.3 (0.5-1.5) % POC ABG HHb (Measured) 9.1 H (0.0-5.0) % ABG Methemoglobin 1.0 (0.0-3.0) % Blay[place] Test Na VBG pH (7.32-7.43) VBG pCO2 (40-60) mmHg VBG HCO3 mmol/L VBG Total CO2 (22-28) mmol/L VBG O2 Sat (Calc) (40-65) % VBG Base Excess (0.0-2.0) mmol/L VBG Potassium (3.6-5.2) mmol/L A-a O2 Difference 165.0 mm/Hg Respiratory Index 3.2 Hgb O2 Saturation 88.6 L (95.0-98.0) % Sodium 141 (132-148) mmol/l Chloride 119 H (98-107) mmol/L Glucose (65-105) mg/dl Lactate (0.7-2.1) mmol/L Liter Flow 4.0 FiO2 35.0 % Potassium 3.3 L (3.6-5.2) mmol/L Carbon Dioxide 16 L (22-30) mmol/L Anion Gap 10 (10-20) BUN 32 H (7-17) mg/dL Creatinine 0.8 (0.7-1.2) mg/dL Est GFR ( Amer) > 60 Est GFR (Non-Af Amer) > 60 Random Glucose 129 H (65-105) mg/dL Calcium 7.5 L (8.6-10.4) mg/dl Phosphorus 2.2 L (2.5-4.5) mg/dL Magnesium 2.2 (1.6-2.3) mg/dL Total Bilirubin 0.2 (0.2-1.3) mg/dL AST 29 (14-36) U/L ALT 33 (9-52) U/L Alkaline Phosphatase 63 (38-126) U/L Lactate Dehydrogenase 628 H (313-618) U/L Total Protein 5.7 L (6.3-8.3) g/dL Albumin 2.2 L (3.5-5.0) g/dL Globulin 3.5 (2.2-3.9) gm/dL Albumin/Globulin Ratio 0.6 L (1.0-2.1) Venous Blood Potassium (3.6-5.2) mmol/L 06/25/18 Range/Units 21:06 WBC (4.8-10.8) K/uL RBC (3.80-5.20) Mil/uL Hgb (11.0-16.0) g/dL Hct (34.0-47.0) % MCV (81.0-99.0) fL MCH (27.0-31.0) pg MCHC (33.0-37.0) g/dL RDW (11.5-14.5) % Plt Count (130-400) K/uL MPV (7.2-11.7) fL Neut % (Auto) (50.0-75.0) % Lymph % (Auto) (20.0-40.0) % Cherry % (Auto) (0.0-10.0) % Eos % (Auto) (0.0-4.0) % Baso % (Auto) (0.0-2.0) % Neut # (Auto) (1.8-7.0) K/uL Lymph # (Auto) (1.0-4.3) K/uL Cherry # (Auto) (0.0-0.8) K/uL Eos # (Auto) (0.0-0.7) K/uL Baso # (Auto) (0.0-0.2) K/uL Neutrophils % (Manual) (50-75) % Band Neutrophils % (0-2) % Lymphocytes % (Manual) (20-40) % Monocytes % (Manual) (0-10) % Nucleated RBC % (0-0) % Platelet Estimate (NORMAL) Large Platelets Hypochromasia (manual) Poikilocytosis (manual Anisocytosis (manual) Ovalocytes [place] Cells Puncture Site pCO2 (35-45) mm/Hg pO2 43 (30-55) mm/Hg HCO3 (21-28) mmol/L ABG pH (7.35-7.45) ABG Total CO2 (22-28) mmol/L ABG O2 Saturation (95-98) % ABG Base Excess (-2.0-3.0) mmol/L ABG Hemoglobin (11.7-17.4) g/dL ABG Carboxyhemoglobin (0.5-1.5) % POC ABG HHb (Measured) (0.0-5.0) % ABG Methemoglobin (0.0-3.0) % Blayne Test VBG pH 7.28 L (7.32-7.43) VBG pCO2 39 L (40-60) mmHg VBG HCO3 18.1 mmol/L VBG Total CO2 19.5 L (22-28) mmol/L VBG O2 Sat (Calc) 81.6 H (40-65) % VBG Base Excess -7.9 L (0.0-2.0) mmol/L VBG Potassium 3.5 L (3.6-5.2) mmol/L A-a O2 Difference mm/Hg Respiratory Index Hgb O2 Saturation (95.0-98.0) % Sodium 140.0 (132-148) mmol/l Chloride 118.0 H (98-107) mmol/L Glucose 144 H (65-105) mg/dl Lactate 1.1 (0.7-2.1) mmol/L Liter Flow FiO2 % Potassium (3.6-5.2) mmol/L Carbon Dioxide (22-30) mmol/L Anion Gap (10-20) BUN (7-17) mg/dL Creatinine (0.7-1.2) mg/dL Est GFR ( Amer) Est GFR (Non-Af Amer) Random Glucose (65-105) mg/dL Calcium (8.6-10.4) mg/dl Phosphorus (2.5-4.5) mg/dL Magnesium (1.6-2.3) mg/dL Total Bilirubin (0.2-1.3) mg/dL AST (14-36) U/L ALT (9-52) U/L Alkaline Phosphatase (38-126) U/L Lactate Dehydrogenase (313-618) U/L Total Protein (6.3-8.3) g/dL Albumin (3.5-5.0) g/dL Globulin (2.2-3.9) gm/dL Albumin/Globulin Ratio (1.0-2.1) Venous Blood Potassium 3.5 L (3.6-5.2) mmol/L Laboratory Results - last 24 hr 06/25/18 06/26/18 06/26/18 21:06 05:03 05:03 WBC 5.6 RBC 3.85 Hgb 10.7 L Hct 33.1 L MCV 86.0 MCH 27.9 MCHC 32.4 L RDW 15.5 H Plt Count 216 MPV 9.0 Neut % (Auto) 84.8 H Lymph % (Auto) 7.7 L Cherry % (Auto) 7.2 Eos % (Auto) 0.0 Baso % (Auto) 0.3 Neut # (Auto) 4.8 Lymph # (Auto) 0.4 L Cherry # (Auto) 0.4 Eos # (Auto) 0.0 Baso # (Auto) 0.0 Neutrophils % (Manual) 83 H Band Neutrophils % 8 H Lymphocytes % (Manual) 4 L Monocytes % (Manual) 5 Nucleated RBC % 1 H Platelet Estimate Normal Large Platelets Present Hypochromasia (manual) Slight Poikilocytosis (manual Slight Anisocytosis (manual) Slight Ovalocytes Slight [place] Cells Slight Puncture Site pCO2 pO2 43 HCO3 ABG pH ABG Total CO2 ABG O2 Saturation ABG Base Excess ABG Hemoglobin ABG Carboxyhemoglobin POC ABG HHb (Measured) ABG Methemoglobin Blayne Test VBG pH 7.28 L VBG pCO2 39 L VBG HCO3 18.1 VBG Total CO2 19.5 L VBG O2 Sat (Calc) 81.6 H VBG Base Excess -7.9 L VBG Potassium 3.5 L A-a O2 Difference Respiratory Index Hgb O2 Saturation Sodium 140.0 141 Chloride 118.0 H 119 H Glucose 144 H Lactate 1.1 Liter Flow FiO2 Potassium 3.3 L Carbon Dioxide 16 L Anion Gap 10 BUN 32 H Creatinine 0.8 Est GFR ( Amer) > 60 Est GFR (Non-Af Amer) > 60 Random Glucose 129 H Calcium 7.5 L Phosphorus 2.2 L Magnesium 2.2 Total Bilirubin 0.2 AST 29 ALT 33 Alkaline Phosphatase 63 Lactate Dehydrogenase 628 H Total Protein 5.7 L Albumin 2.2 L Globulin 3.5 Albumin/Globulin Ratio 0.6 L Venous Blood Potassium 3.5 L 06/26/18 09:03 WBC RBC Hgb Hct MCV MCH MCHC RDW Plt Count MPV Neut % (Auto) Lymph % (Auto) Cherry % (Auto) Eos % (Auto) Baso % (Auto) Neut # (Auto) Lymph # (Auto) Cherry # (Auto) Eos # (Auto) Baso # (Auto) Neutrophils % (Manual) Band Neutrophils % Lymphocytes % (Manual) Monocytes % (Manual) Nucleated RBC % Platelet Estimate Large Platelets Hypochromasia (manual) Poikilocytosis (manual Anisocytosis (manual) Ovalocytes [place] Cells Puncture Site Rba pCO2 26 L pO2 52 L HCO3 18.6 L ABG pH 7.39 ABG Total CO2 16.5 L ABG O2 Saturation 90.7 L ABG Base Excess -7.9 L ABG Hemoglobin 10.7 L ABG Carboxyhemoglobin 1.3 POC ABG HHb (Measured) 9.1 H ABG Methemoglobin 1.0 Blayne Test Na VBG pH VBG pCO2 VBG HCO3 VBG Total CO2 VBG O2 Sat (Calc) VBG Base Excess VBG Potassium A-a O2 Difference 165.0 Respiratory Index 3.2 Hgb O2 Saturation 88.6 L Sodium Chloride Glucose Lactate Liter Flow 4.0 FiO2 35.0 Potassium Carbon Dioxide Anion Gap BUN Creatinine Est GFR ( Amer) Est GFR (Non-Af Amer) Random Glucose Calcium Phosphorus Magnesium Total Bilirubin AST ALT Alkaline Phosphatase Lactate Dehydrogenase Total Protein Albumin Globulin Albumin/Globulin Ratio Venous Blood Potassium Review of Systems - Review of Systems All systems: reviewed and no additional remarkable complaints except - EENT Eyes: As Per HPI - Cardiovascular Cardiovascular: As Per HPI - Respiratory Respiratory: As Per HPI - Gastrointestinal Gastrointestinal: As Per HPI Critical Care Progress Note - Nutrition Nutrition: Nutrition Category Date Time Status Regular Diet [DIET] Diets 06/26/18 Breakfast Active Assessment/Plan - Assessment and Plan (Free Text) Assessment: 57 yo F presents with bilateral pneumonia shown on CT scan 06/25/18. Patient was treated with Levophed, which was tapered down. Currently off levophed. Patient monitored closely and treated in ICU. Neuro: - Alert and orientedx3 - Monitor mental status - Not currently on sedation Cardio Vasc: Hypotension - Maintain MAP >60 - Recieved cardizem x2 ivp and toprol 2.5 when admitted - 1 L [place] bolus - Transfuse 1 unit of PRBCs Pulm: Multilobar pna - Cefepime - Vanco - Bactrim - BIPAP - Duonebs q6 - Solu-medrol 40 IVP - Maintain spO2 >92% - Dr Rosenbaum ID consulted recommendations appreciated - ABG obtained - Start Mucomist Q6 - Start Guaifenesin 600mg PO BID - Start Chest physical therapy - Start incentive spirometry - Start High Flow O2 Renal OSVALDO - Resolved - Monitor I&Os - ABG obtained - Monitor CMP, Mg, Phos Dehydration - [place] @ 100ml/hr ID Possible sepsis - IV Cefepime, Vanco and Bactrim - Dr Rosenbaum Consulted; Recommendations appreciated - Monitor CBC with diff HIV/AIDS, noncompliance -Follow-up CD4 GI: - No acute issues - Started diet Endo - No acute issues - Maintain euglycemia 120-180 glucose GI/ PPX - Protonix IV - Heparin 5000u sq Patient seen and case discussed in detail with Dr. Pablo Bañuelos PGY1 <Farzad Shah - Last Filed: 06/26/18 20:35> CCU Objective - Vital Signs / Intake & Output Vital Signs (Last 4 hours): Vital Signs Pulse Resp BP Pulse Ox 06/26/18 19:01 85 28 H 101/60 95 06/26/18 19:00 80 37 H 98 06/26/18 18:46 200 H 32 H 92/50 L 98 06/26/18 18:29 91 H 21 105/55 L 99 06/26/18 18:01 80 41 H 87/57 L 96 06/26/18 18:00 94 H 34 H 98 06/26/18 17:01 95 H 43 H 93/55 L 95 06/26/18 17:00 98 H 45 H 97 06/26/18 16:36 31 H Intake and Output (Last 8hrs): Intake & Output 06/26/18 06/26/18 06/26/18 06:59 14:59 22:59 Intake Total 1467.7 1167.2 1240 Output Total 700 390 200 Balance 767.7 777.2 1040 Weight 138 lb 0.15 oz Intake: IV 65 27 Intake, IV Amount 1402.7 1090.2 750 Left Forearm 0 0 0 Right Distal Port 52.7 15.2 0 Internal Jugular Right Medial Port 1350 1075 750 Internal Jugular Right Wrist 0 0 0 Oral 0 50 490 Output: Urine 700 390 200 Urethral (Queen) 700 390 Urine, Voided 200 Other: # Voids Urine, Voided 0 # Bowel Movements 0 0 0 - Medications Active Medications: Active Medications Generic Name Dose Route Start Last Admin Trade Name Freq PRN Reason Stop Dose Admin Acetaminophen 975 mg 06/24/18 22:16 06/24/18 22:28 Tylenol 325mg Tab PO 975 mg ONCE PRN Administration Fever >100.4 F Acetylcysteine 4 ml 06/26/18 20:00 06/26/18 19:28 Acetylcysteine 20% INH 4 ml RQ6 KHARI Administration Albuterol/Ipratropium 3 ml 06/25/18 14:00 06/26/18 19:28 Duoneb 3 Mg/0.5 Mg (3 Ml) Ud INH 3 ml RQ6 KHARI Administration Guaifenesin 600 mg 06/26/18 18:00 06/26/18 17:36 Mucinex La PO 600 mg BID KHARI Administration Heparin Sodium (Porcine) 5,000 units 06/25/18 10:00 06/26/18 09:08 Heparin SC 5,000 units Q12 KHARI Administration Trimethoprim/Sulfamethoxazole 250 mls @ 250 mls/hr 06/25/18 00:30 06/26/18 17:36 240 mg/ Dextrose IVPB 250 mls/hr Q6H KHARI Administration Protocol Cefepime HCl 1 gm/ Dextrose 50 mls @ 100 mls/hr 06/25/18 07:00 06/26/18 15:08 IVPB 100 mls/hr Q8H KHARI Administration Protocol Norepinephrine Bitartrate 4 mg 250 mls @ 15 mls/hr 06/25/18 12:35 06/26/18 11:10 / Sodium Chloride IV 0 mcg/min .[id number] PRN 0 mls/hr TITRATE PER MD ORDER Titration Protocol 4 MCG/MIN Sodium Chloride 1,000 mls @ 125 mls/hr 06/25/18 14:00 06/26/18 17:37 Sodium Chloride 0.9% IV 125 mls/hr .Q8H KHARI Administration Vancomycin HCl 1 gm/ Sodium 250 mls @ 166.7 mls/hr 06/26/18 03:00 06/26/18 02:31 Chloride IVPB 166.7 mls/hr Q24H KHARI Administration Protocol Influenza Virus Vaccine 60 mcg 06/27/18 10:00 Fluzone Quad [id number] IM 06/27/18 10:01 .ONCE ONE Methylprednisolone 40 mg 06/25/18 12:00 06/26/18 12:17 Solu-Medrol IVP 40 mg Q12H KHARI Administration Metoprolol Tartrate 2.5 mg 06/27/18 00:00 Lopressor IVP Q6 KHARI Pantoprazole Sodium 40 mg 06/25/18 10:45 06/26/18 09:08 Protonix Inj IVP 40 mg DAILY KHARI Administration Pneumococcal Polyvalent Vaccine 0.5 ml 06/27/18 10:00 Pneumovax 23 Vaccine IM 06/27/18 10:01 .ONCE ONE - Patient Studies Lab Studies: Microbiology Studies 06/24/18 23:25 Urine Culture - Final Urine,Catheterized No Growth (<1,000 CFU/ML) 06/24/18 20:00 Blood Culture - Preliminary Blood NO GROWTH AFTER 24 HOURS 06/24/18 22:30 Blood Culture - Preliminary Blood NO GROWTH AFTER 24 HOURS Lab Studies 06/26/18 06/26/18 06/26/18 Range/Units 09:03 05:03 05:03 WBC 5.6 (4.8-10.8) K/uL RBC 3.85 (3.80-5.20) Mil/uL Hgb 10.7 L (11.0-16.0) g/dL Hct 33.1 L (34.0-47.0) % MCV 86.0 (81.0-99.0) fL MCH 27.9 (27.0-31.0) pg MCHC 32.4 L (33.0-37.0) g/dL RDW 15.5 H (11.5-14.5) % Plt Count 216 (130-400) K/uL MPV 9.0 (7.2-11.7) fL Neut % (Auto) 84.8 H (50.0-75.0) % Lymph % (Auto) 7.7 L (20.0-40.0) % Cherry % (Auto) 7.2 (0.0-10.0) % Eos % (Auto) 0.0 (0.0-4.0) % Baso % (Auto) 0.3 (0.0-2.0) % Neut # (Auto) 4.8 (1.8-7.0) K/uL Lymph # (Auto) 0.4 L (1.0-4.3) K/uL Cherry # (Auto) 0.4 (0.0-0.8) K/uL Eos # (Auto) 0.0 (0.0-0.7) K/uL Baso # (Auto) 0.0 (0.0-0.2) K/uL Neutrophils % (Manual) 83 H (50-75) % Band Neutrophils % 8 H (0-2) % Lymphocytes % (Manual) 4 L (20-40) % Monocytes % (Manual) 5 (0-10) % Nucleated RBC % 1 H (0-0) % Platelet Estimate Normal (NORMAL) Large Platelets Present Hypochromasia (manual) Slight Poikilocytosis (manual Slight Anisocytosis (manual) Slight Ovalocytes Slight [place] Cells Slight Puncture Site Rba pCO2 26 L (35-45) mm/Hg pO2 52 L (30-55) mm/Hg HCO3 18.6 L (21-28) mmol/L ABG pH 7.39 (7.35-7.45) ABG Total CO2 16.5 L (22-28) mmol/L ABG O2 Saturation 90.7 L (95-98) % ABG Base Excess -7.9 L (-2.0-3.0) mmol/L ABG Hemoglobin 10.7 L (11.7-17.4) g/dL ABG Carboxyhemoglobin 1.3 (0.5-1.5) % POC ABG HHb (Measured) 9.1 H (0.0-5.0) % ABG Methemoglobin 1.0 (0.0-3.0) % Blayne Test Na VBG pH (7.32-7.43) VBG pCO2 (40-60) mmHg VBG HCO3 mmol/L VBG Total CO2 (22-28) mmol/L VBG O2 Sat (Calc) (40-65) % VBG Base Excess (0.0-2.0) mmol/L VBG Potassium (3.6-5.2) mmol/L A-a O2 Difference 165.0 mm/Hg Respiratory Index 3.2 Hgb O2 Saturation 88.6 L (95.0-98.0) % Sodium 141 (132-148) mmol/l Chloride 119 H (98-107) mmol/L Glucose (65-105) mg/dl Lactate (0.7-2.1) mmol/L Liter Flow 4.0 FiO2 35.0 % Potassium 3.3 L (3.6-5.2) mmol/L Carbon Dioxide 16 L (22-30) mmol/L Anion Gap 10 (10-20) BUN 32 H (7-17) mg/dL Creatinine 0.8 (0.7-1.2) mg/dL Est GFR ( Amer) > 60 Est GFR (Non-Af Amer) > 60 Random Glucose 129 H (65-105) mg/dL Calcium 7.5 L (8.6-10.4) mg/dl Phosphorus 2.2 L (2.5-4.5) mg/dL Magnesium 2.2 (1.6-2.3) mg/dL Total Bilirubin 0.2 (0.2-1.3) mg/dL AST 29 (14-36) U/L ALT 33 (9-52) U/L Alkaline Phosphatase 63 (38-126) U/L Lactate Dehydrogenase 628 H (313-618) U/L Total Protein 5.7 L (6.3-8.3) g/dL Albumin 2.2 L (3.5-5.0) g/dL Globulin 3.5 (2.2-3.9) gm/dL Albumin/Globulin Ratio 0.6 L (1.0-2.1) Venous Blood Potassium (3.6-5.2) mmol/L Ur L.pneumophila Ag (NEGATIVE) 06/26/18 06/25/18 Range/Units 00:27 21:06 WBC (4.8-10.8) K/uL RBC (3.80-5.20) Mil/uL Hgb (11.0-16.0) g/dL Hct (34.0-47.0) % MCV (81.0-99.0) fL MCH (27.0-31.0) pg MCHC (33.0-37.0) g/dL RDW (11.5-14.5) % Plt Count (130-400) K/uL MPV (7.2-11.7) fL Neut % (Auto) (50.0-75.0) % Lymph % (Auto) (20.0-40.0) % Cherry % (Auto) (0.0-10.0) % Eos % (Auto) (0.0-4.0) % Baso % (Auto) (0.0-2.0) % Neut # (Auto) (1.8-7.0) K/uL Lymph # (Auto) (1.0-4.3) K/uL Cherry # (Auto) (0.0-0.8) K/uL Eos # (Auto) (0.0-0.7) K/uL Baso # (Auto) (0.0-0.2) K/uL Neutrophils % (Manual) (50-75) % Band Neutrophils % (0-2) % Lymphocytes % (Manual) (20-40) % Monocytes % (Manual) (0-10) % Nucleated RBC % (0-0) % Platelet Estimate (NORMAL) Large Platelets Hypochromasia (manual) Poikilocytosis (manual Anisocytosis (manual) Ovalocytes [place] Cells Puncture Site pCO2 (35-45) mm/Hg pO2 43 (30-55) mm/Hg HCO3 (21-28) mmol/L ABG pH (7.35-7.45) ABG Total CO2 (22-28) mmol/L ABG O2 Saturation (95-98) % ABG Base Excess (-2.0-3.0) mmol/L ABG Hemoglobin (11.7-17.4) g/dL ABG Carboxyhemoglobin (0.5-1.5) % POC ABG HHb (Measured) (0.0-5.0) % ABG Methemoglobin (0.0-3.0) % Blayne Test VBG pH 7.28 L (7.32-7.43) VBG pCO2 39 L (40-60) mmHg VBG HCO3 18.1 mmol/L VBG Total CO2 19.5 L (22-28) mmol/L VBG O2 Sat (Calc) 81.6 H (40-65) % VBG Base Excess -7.9 L (0.0-2.0) mmol/L VBG Potassium 3.5 L (3.6-5.2) mmol/L A-a O2 Difference mm/Hg Respiratory Index Hgb O2 Saturation (95.0-98.0) % Sodium 140.0 (132-148) mmol/l Chloride 118.0 H (98-107) mmol/L Glucose 144 H (65-105) mg/dl Lactate 1.1 (0.7-2.1) mmol/L Liter Flow FiO2 % Potassium (3.6-5.2) mmol/L Carbon Dioxide (22-30) mmol/L Anion Gap (10-20) BUN (7-17) mg/dL Creatinine (0.7-1.2) mg/dL Est GFR ( Amer) Est GFR (Non-Af Amer) Random Glucose (65-105) mg/dL Calcium (8.6-10.4) mg/dl Phosphorus (2.5-4.5) mg/dL Magnesium (1.6-2.3) mg/dL Total Bilirubin (0.2-1.3) mg/dL AST (14-36) U/L ALT (9-52) U/L Alkaline Phosphatase (38-126) U/L Lactate Dehydrogenase (313-618) U/L Total Protein (6.3-8.3) g/dL Albumin (3.5-5.0) g/dL Globulin (2.2-3.9) gm/dL Albumin/Globulin Ratio (1.0-2.1) Venous Blood Potassium 3.5 L (3.6-5.2) mmol/L Ur L.pneumophila Ag Negative (NEGATIVE) Laboratory Results - last 24 hr 06/25/18 06/26/18 06/26/18 21:06 00:27 05:03 WBC 5.6 RBC 3.85 Hgb 10.7 L Hct 33.1 L MCV 86.0 MCH 27.9 MCHC 32.4 L RDW 15.5 H Plt Count 216 MPV 9.0 Neut % (Auto) 84.8 H Lymph % (Auto) 7.7 L Cherry % (Auto) 7.2 Eos % (Auto) 0.0 Baso % (Auto) 0.3 Neut # (Auto) 4.8 Lymph # (Auto) 0.4 L Cherry # (Auto) 0.4 Eos # (Auto) 0.0 Baso # (Auto) 0.0 Neutrophils % (Manual) 83 H Band Neutrophils % 8 H Lymphocytes % (Manual) 4 L Monocytes % (Manual) 5 Nucleated RBC % 1 H Platelet Estimate Normal Large Platelets Present Hypochromasia (manual) Slight Poikilocytosis (manual Slight Anisocytosis (manual) Slight Ovalocytes Slight [place] Cells Slight Puncture Site pCO2 pO2 43 HCO3 ABG pH ABG Total CO2 ABG O2 Saturation ABG Base Excess ABG Hemoglobin ABG Carboxyhemoglobin POC ABG HHb (Measured) ABG Methemoglobin Blayne Test VBG pH 7.28 L VBG pCO2 39 L VBG HCO3 18.1 VBG Total CO2 19.5 L VBG O2 Sat (Calc) 81.6 H VBG Base Excess -7.9 L VBG Potassium 3.5 L A-a O2 Difference Respiratory Index Hgb O2 Saturation Sodium 140.0 Chloride 118.0 H Glucose 144 H Lactate 1.1 Liter Flow FiO2 Potassium Carbon Dioxide Anion Gap BUN Creatinine Est GFR ( Amer) Est GFR (Non-Af Amer) Random Glucose Calcium Phosphorus Magnesium Total Bilirubin AST ALT Alkaline Phosphatase Lactate Dehydrogenase Total Protein Albumin Globulin Albumin/Globulin Ratio Venous Blood Potassium 3.5 L Ur L.pneumophila Ag Negative 06/26/18 06/26/18 05:03 09:03 WBC RBC Hgb Hct MCV MCH MCHC RDW Plt Count MPV Neut % (Auto) Lymph % (Auto) Cherry % (Auto) Eos % (Auto) Baso % (Auto) Neut # (Auto) Lymph # (Auto) Cherry # (Auto) Eos # (Auto) Baso # (Auto) Neutrophils % (Manual) Band Neutrophils % Lymphocytes % (Manual) Monocytes % (Manual) Nucleated RBC % Platelet Estimate Large Platelets Hypochromasia (manual) Poikilocytosis (manual Anisocytosis (manual) Ovalocytes [place] Cells Puncture Site Rba pCO2 26 L pO2 52 L HCO3 18.6 L ABG pH 7.39 ABG Total CO2 16.5 L ABG O2 Saturation 90.7 L ABG Base Excess -7.9 L ABG Hemoglobin 10.7 L ABG Carboxyhemoglobin 1.3 POC ABG HHb (Measured) 9.1 H ABG Methemoglobin 1.0 Blayne Test Na VBG pH VBG pCO2 VBG HCO3 VBG Total CO2 VBG O2 Sat (Calc) VBG Base Excess VBG Potassium A-a O2 Difference 165.0 Respiratory Index 3.2 Hgb O2 Saturation 88.6 L Sodium 141 Chloride 119 H Glucose Lactate Liter Flow 4.0 FiO2 35.0 Potassium 3.3 L Carbon Dioxide 16 L Anion Gap 10 BUN 32 H Creatinine 0.8 Est GFR ( Amer) > 60 Est GFR (Non-Af Amer) > 60 Random Glucose 129 H Calcium 7.5 L Phosphorus 2.2 L Magnesium 2.2 Total Bilirubin 0.2 AST 29 ALT 33 Alkaline Phosphatase 63 Lactate Dehydrogenase 628 H Total Protein 5.7 L Albumin 2.2 L Globulin 3.5 Albumin/Globulin Ratio 0.6 L Venous Blood Potassium Ur L.pneumophila Ag EKG/Cardiology Studies: Cardiology / EKG Studies 06/26/18 18:53 EKG [ELECTROCARDIOGRAM] Stat Comment: Mode Of Transportation: PORTABLE Reason For Exam: SVT Critical Care Progress Note - Nutrition Nutrition: Nutrition Category Date Time Status Regular Diet [DIET] Diets 06/26/18 Breakfast Active Attending/Attestation - Attestation I have personally seen and examined this patient.: Yes I have fully participated in the care of the patient.: Yes I have reviewed all pertinent clinical information: Yes Notes (Text): 06/26/18 20:19 I have seen and examined the patient. Medical records, lab studies, and imaging were reviewed by me and a management plan was formulated on multidisciplinary rounds with resident Dr. Bañuelos. I agree with their documented assessment and plan. Patient has a pneumonia, and is oliguric. added mucolytics, incentive spirometer, cpt. patient also went into SVT today, requiring adenosine, which broke with 6mg; this was not her first run of SVT. Continuing metoprolol 2.5mg IV q6h. When discharging will transition to metoprolol 25mg po bid. Critical Care Time 35 minutes. Multi-disciplinary rounds were performed with house staff, nursing, speech therapy, respiratory therapy, pharmacy and nutrition with integrated input from the primary team/attending and other consulting services. The documented time is cumulative and includes review of patient data/exams/labs/chart review and examination of the patient on rounds and throughout the day; time is exclusive of any procedures or teaching time.
--- NOTE | 2018-06-26 18:22 | CP.PCM.PN ---
Subjective - Date & Time of Evaluation Date of Evaluation: 06/26/18 Time of Evaluation: 13:00 - Subjective Subjective: clinically same Objective - Vital Signs/Intake and Output Vital Signs (last 24 hours): Temp Pulse Resp BP Pulse Ox 97.7 F 80 41 H 87/57 L 96 06/26/18 16:00 06/26/18 18:01 06/26/18 18:01 06/26/18 18:01 06/26/18 18:01 Intake and Output: 06/26/18 06/26/18 06:59 18:59 Intake Total 1858.2 2282.2 Output Total 920 590 Balance 938.2 1692.2 - Medications Medications: Current Medications Acetaminophen (Tylenol 325mg Tab) 975 mg PO ONCE PRN PRN Reason: Fever >100.4 F Last Admin: 06/24/18 22:28 Dose: 975 mg Acetylcysteine (Acetylcysteine 20%) 4 ml INH RQ6 [facility] Albuterol/Ipratropium (Duoneb 3 Mg/0.5 Mg (3 Ml) Ud) 3 ml INH RQ6 [facility] Last Admin: 06/26/18 13:15 Dose: 3 ml Guaifenesin (Mucinex La) 600 mg PO BID [facility] Last Admin: 06/26/18 17:36 Dose: 600 mg Heparin Sodium (Porcine) (Heparin) 5,000 units SC Q12 [facility] Last Admin: 06/26/18 09:08 Dose: 5,000 units Trimethoprim/Sulfamethoxazole (240 mg/ Dextrose) 250 mls @ 250 mls/hr IVPB Q6H [facility]; Protocol Last Admin: 06/26/18 17:36 Dose: 250 mls/hr Cefepime HCl 1 gm/ Dextrose 50 mls @ 100 mls/hr IVPB Q8H [facility]; Protocol Last Admin: 06/26/18 15:08 Dose: 100 mls/hr Norepinephrine Bitartrate 4 mg (/ Sodium Chloride) 250 mls @ 15 mls/hr IV .[id number] PRN; Protocol PRN Reason: TITRATE PER MD ORDER Last Titration: 06/26/18 11:10 Dose: 0 mcg/min, 0 mls/hr Sodium Chloride (Sodium Chloride 0.9%) 1,000 mls @ 125 mls/hr IV .Q8H [facility] Last Admin: 06/26/18 17:37 Dose: 125 mls/hr Vancomycin HCl 1 gm/ Sodium (Chloride) 250 mls @ 166.7 mls/hr IVPB Q24H [facility]; Protocol Last Admin: 06/26/18 02:31 Dose: 166.7 mls/hr Influenza Virus Vaccine (Fluzone Quad [id number]) 60 mcg IM .ONCE ONE Stop: 06/27/18 10:01 Methylprednisolone (Solu-Medrol) 40 mg IVP Q12H [facility] Last Admin: 06/26/18 12:17 Dose: 40 mg Pantoprazole Sodium (Protonix Inj) 40 mg IVP DAILY [facility] Last Admin: 06/26/18 09:08 Dose: 40 mg Pneumococcal Polyvalent Vaccine (Pneumovax 23 Vaccine) 0.5 ml IM .ONCE ONE Stop: 06/27/18 10:01 - Labs Labs: 06/26/18 05:03 06/26/18 05:03 PT 13.4 SECONDS (9.7-12.2) H 06/24/18 22:42 INR 1.2 06/24/18 22:42 APTT 29 SECONDS (21-34) 06/24/18 22:42 - Constitutional Appears: Well - Head Exam Head Exam: ATRAUMATIC, NORMAL INSPECTION, NORMOCEPHALIC - Eye Exam Eye Exam: EOMI, Normal appearance, PERRL Pupil Exam: NORMAL ACCOMODATION, PERRL - ENT Exam ENT Exam: Mucous Membranes Moist, Normal Exam - Neck Exam Neck Exam: Full ROM, Normal Inspection. absent: Lymphadenopathy - Respiratory Exam Respiratory Exam: Decreased Breath Sounds - Cardiovascular Exam Cardiovascular Exam: REGULAR RHYTHM, +S1, +S2 - GI/Abdominal Exam GI & Abdominal Exam: Soft, Diminished Bowel Sounds - Rectal Exam Rectal Exam: Deferred
[2018-06-26] MEDS: Acetylcysteine 20% Inhal Soln (4ml) INH SCH (19:28)
[2018-06-27] MEDS: MethylPREDNISolone 40 mg Vial IVP SCH ×2 (00:20→11:47)
[2018-06-27] MEDS: Metoprolol 1 mg/ml Inj IVP SCH ×2 (00:20→06:22)
[2018-06-27] MEDS: Sulfamethoxazole/Trimethoprim 240 MG in Dextrose 5% In Water 250 ML IVPB SCH ×4 (00:20→19:32)
[2018-06-27] MEDS: Acetylcysteine 20% Inhal Soln (4ml) INH SCH ×4 (01:16→19:33)
[2018-06-27] MEDS: Albuterol-Ipratrop 3 mg / 0.5 (3 ml) UD INH SCH ×4 (01:16→19:33)
[2018-06-27 05:40] LABS: BASO % 0.2 % (0.0-2.0); EOS % 0.1 % (0.0-4.0); HEMOGLOBIN 9.5 g/dL (11.0-16.0); LYMPH # 0.5 K/uL (1.0-4.3); LYMPH % 7.4 % (20.0-40.0); MEAN CELL VOLUME 86.1 fL (81.0-99.0); MEAN CORPUSCULAR HEMOGLOBIN 28.5 pg (27.0-31.0); MEAN CORPUSCULAR HGB CONC 33.1 g/dL (33.0-37.0); MONO # 0.3 K/uL (0.0-0.8); MONO % 5.4 % (0.0-10.0); NEUT # 5.4 K/uL (1.8-7.0); NEUT % 86.9 % (50.0-75.0); NRBC % 0.1 % (0.0-2.0); PLATELET COUNT 236 K/uL (130-400); RBC 3.35 Mil/uL (3.80-5.20); RED CELL DISTRIBUTION WIDTH 15.2 % (11.5-14.5); WHITE BLOOD COUNT 6.2 K/uL (4.8-10.8)
[2018-06-27] MEDS: Sodium Chloride 0.9% 1,000 ML IV SCH ×2 (06:29→17:45)
[2018-06-27 06:37] LABS: ALB/GLOB RATIO 0.6 (1.0-2.1); ALBUMIN 2.1 g/dL (3.5-5.0); ALT/SGPT 35 U/L (9-52); AST/SGOT 32 U/L (14-36); BLOOD UREA NITROGEN 24 mg/dL (7-17); CALCIUM 7.8 mg/dl (8.6-10.4); GFR NON-AFRICAN AMERICAN > 60
[2018-06-27 08:19] LABS: BANDS 9 % (0-2); LYMPHOCYTE 5 % (20-40); METAMYELOCYTE 1 % (0-0); MONOCYTE 6 % (0-10); NEUTROPHIL 77 % (50-75); REACTIVE LYMPHOCYTES 2 % (0-0); TOTAL CELLS COUNTED 100
[2018-06-27 08:20] LABS: ANISOCYTOSIS SLIGHT; PLATELET ESTIMATE NORMAL (NORMAL)
[2018-06-27 08:21] LABS: HYPOCHROMIC SLIGHT; OVALOCYTES SLIGHT
[2018-06-27 08:59] LABS: % CD4 (T HELPER CELL) 2 Percent (30-61); % CD8 (SUPPRESSOR T CELL) 73 Percent (12-42); ABSOLUTE CD4 CELLS <20 Cells/mcL (490-1740); ABSOLUTE CD8 CELLS 304 Cells/mcL (180-1170); ABSOLUTE LYMPHOCYTES 418 Cells/mcL (850-3900); HELPER/SUPPRESSOR RATIO 0.03 Ratio (0.86-5.00)
[2018-06-27] MEDS: guaiFENesin 600 mg ER Tab PO SCH ×2 (09:33→17:50)
[2018-06-27] MEDS ORDERED: Influenza Vaccine 60 MCG/0.5 ML SYR (3 yr & up) IM ONE (10:00)
[2018-06-27] MEDS ORDERED: Pneumococcal 23-Valent Vaccine IM ONE (10:00)
[2018-06-27] MEDS: Pantoprazole 40 mg EC Tab PO SCH (11:47)
--- NOTE | 2018-06-27 15:59 | CP.PCM.PN ---
Subjective - Date & Time of Evaluation Date of Evaluation: 06/27/18 Time of Evaluation: 07:00 - Subjective Subjective: awake alert less SOB no fever Objective - Vital Signs/Intake and Output Vital Signs (last 24 hours): Temp Pulse Resp BP Pulse Ox 97 F L 65 39 H 105/65 99 06/27/18 12:00 06/27/18 15:00 06/27/18 15:00 06/27/18 15:01 06/27/18 15:00 Intake and Output: 06/27/18 06/27/18 06:59 18:59 Intake Total 2215 1490 Output Total 950 500 Balance 1265 990 - Medications Medications: Current Medications Acetaminophen (Tylenol 325mg Tab) 975 mg PO ONCE PRN PRN Reason: Fever >100.4 F Last Admin: 06/24/18 22:28 Dose: 975 mg Acetylcysteine (Acetylcysteine 20%) 4 ml INH RQ6 [facility] Last Admin: 06/27/18 13:11 Dose: Not Given Albuterol/Ipratropium (Duoneb 3 Mg/0.5 Mg (3 Ml) Ud) 3 ml INH RQ6 [facility] Last Admin: 06/27/18 13:11 Dose: Not Given Guaifenesin (Mucinex La) 600 mg PO BID [facility] Last Admin: 06/27/18 09:33 Dose: 600 mg Heparin Sodium (Porcine) (Heparin) 5,000 units SC Q12 [facility] Last Admin: 06/27/18 09:32 Dose: 5,000 units Trimethoprim/Sulfamethoxazole (240 mg/ Dextrose) 250 mls @ 250 mls/hr IVPB Q6H [facility]; Protocol Last Admin: 06/27/18 14:00 Dose: 250 mls/hr Cefepime HCl 1 gm/ Dextrose 50 mls @ 100 mls/hr IVPB Q8H [facility]; Protocol Last Admin: 06/27/18 14:47 Dose: 100 mls/hr Sodium Chloride (Sodium Chloride 0.9%) 1,000 mls @ 125 mls/hr IV .Q8H [facility] Last Admin: 06/27/18 06:29 Dose: 125 mls/hr Vancomycin HCl 1 gm/ Sodium (Chloride) 250 mls @ 166.7 mls/hr IVPB Q24H [facility]; Protocol Last Admin: 06/27/18 03:00 Dose: 166.7 mls/hr Methylprednisolone (Solu-Medrol) 40 mg IVP Q12H [facility] Last Admin: 06/27/18 11:47 Dose: 40 mg Metoprolol Tartrate (Lopressor) 25 mg PO BID [facility] Pantoprazole Sodium (Protonix Ec Tab) 40 mg PO DAILY [facility] Last Admin: 06/27/18 11:47 Dose: 40 mg - Labs Labs: 06/27/18 04:00 06/27/18 05:43 PT 13.4 SECONDS (9.7-12.2) H 06/24/18 22:42 INR 1.2 06/24/18 22:42 APTT 29 SECONDS (21-34) 06/24/18 22:42 - Constitutional Appears: Non-toxic, Chronically Ill - Head Exam Head Exam: NORMOCEPHALIC - Eye Exam Eye Exam: absent: Scleral icterus - ENT Exam ENT Exam: Mucous Membranes Dry - Neck Exam Neck Exam: absent: Lymphadenopathy - Respiratory Exam Respiratory Exam: Decreased Breath Sounds - Cardiovascular Exam Cardiovascular Exam: REGULAR RHYTHM - GI/Abdominal Exam GI & Abdominal Exam: Distended - Rectal Exam Rectal Exam: Deferred - Exam Exam: NORMAL INSPECTION - Extremities Exam Extremities Exam: absent: Pedal Edema - Back Exam Back Exam: absent: CVA tenderness (L), CVA tenderness (R) - Neurological Exam Neurological Exam: Alert, Awake Assessment and Plan (1) Altered mental state Status: Acute (2) CHF (congestive heart failure) Status: Acute (3) Cocaine abuse Status: Acute (4) HIV (human immunodeficiency virus infection) Status: Acute (5) Pneumonia Status: Acute (6) SVT (supraventricular tachycardia) Status: Acute (7) Schizophrenia Status: Acute - Assessment and Plan (Free Text) Assessment: HIV/AIDS CD4 < 20 grave prognosis cont rx pneumonia/ ? PCP add zithromax prophylaxis HAART rx
[2018-06-27] MEDS: Emtricitabine-Tenofovir 200 mg-300 mg Tab PO SCH (17:47)
--- NOTE | 2018-06-27 18:26 | CP.CCUPN ---
<Evon Bañuelos - Last Filed: 06/27/18 18:22> CCU Subjective - Physician Review Events Since Last Encounter (Free Text): 06/27/18 18:26 No acute events overnight Subjective (Free Text): 06/27/18 18:22 PGY1 Critical Care Progress Note for Dr. Hassan Patient seen and evaluated at bedside this morning. No acute events. Patient is alert. Patient denies chest pain, shortness of breath, dizziness, fever, chills, nausea and/or vomiting. Patient currently off pressors. Critical Care Time Spent (in minutes): 35 CCU Objective - Vital Signs / Intake & Output Vital Signs (Last 4 hours): Vital Signs Temp Pulse Resp BP Pulse Ox 06/27/18 17:48 110/50 L 06/27/18 17:01 67 22 110/71 99 06/27/18 17:00 83 24 95 06/27/18 16:01 89 25 H 99/66 L 94 L 06/27/18 16:00 97.3 F L 64 28 H 98 06/27/18 15:01 105/65 06/27/18 15:00 65 39 H 99 Intake and Output (Last 8hrs): Intake & Output 06/27/18 06/27/18 06/27/18 06:59 14:59 22:59 Intake Total 1840 1240 475 Output Total 700 500 200 Balance 1140 740 275 Weight 141 lb 5 oz Intake: Intake, IV Amount 1600 1000 475 Right Medial Port 1600 1000 475 Internal Jugular Oral 240 240 Output: Urine 700 500 200 Urine, Voided 700 500 200 Other: # Bowel Movements 0 - Physical Exam Head: Positive for: Atraumatic, Normocephalic Pupils: Positive for: PERRL Extroacular Muscles: Positive for: EOMI Conjunctiva: Positive for: Normal Mouth: Positive for: Moist Mucous Membranes, Normal Tounge Pharnyx: Negative for: Uvular Deviation Respiratory/Chest: Positive for: Decreased Breath Sounds (bilateral upper lobes). Negative for: Wheezes, Rales, Rhonchi Cardiovascular: Positive for: Regular Rate and Rhythm, Normal S1, S2 Abdomen: Negative for: Tenderness, Distention Upper Extremity: Positive for: Normal Inspection. Negative for: Edema Lower Extremity: Positive for: Normal Inspection. Negative for: Edema Neurological: Positive for: CN II-XII Intact Skin: Positive for: Warm, Diaphoretic Psychiatric: Positive for: Lethargic - Medications Active Medications: Active Medications Generic Name Dose Route Start Last Admin Trade Name Freq PRN Reason Stop Dose Admin Acetaminophen 975 mg 06/24/18 22:16 06/24/18 22:28 Tylenol 325mg Tab PO 975 mg ONCE PRN Administration Fever >100.4 F Acetylcysteine 4 ml 06/26/18 20:00 06/27/18 13:11 Acetylcysteine 20% INH Not Given RQ6 KHARI Albuterol/Ipratropium 3 ml 06/25/18 14:00 06/27/18 13:11 Duoneb 3 Mg/0.5 Mg (3 Ml) Ud INH Not Given RQ6 KHARI Azithromycin 1,200 mg 06/27/18 16:15 06/27/18 17:47 Zithromax PO 1,200 mg Q7D KHARI Administration Protocol Darunavir 600 mg 06/27/18 18:00 06/27/18 17:46 Prezista PO 600 mg BID KHARI Administration Protocol Emtricitabine/Tenofovir 1 tab 06/27/18 16:15 06/27/18 17:47 Truvada 200 Mg-300 Mg PO 1 tab Q24H KHARI Administration Protocol Guaifenesin 600 mg 06/26/18 18:00 06/27/18 17:50 Mucinex La PO 600 mg BID KHARI Administration Heparin Sodium (Porcine) 5,000 units 06/25/18 10:00 06/27/18 09:32 Heparin SC 5,000 units Q12 KHARI Administration Trimethoprim/Sulfamethoxazole 250 mls @ 250 mls/hr 06/25/18 00:30 06/27/18 14:00 240 mg/ Dextrose IVPB 250 mls/hr Q6H KHARI Administration Protocol Cefepime HCl 1 gm/ Dextrose 50 mls @ 100 mls/hr 06/25/18 07:00 06/27/18 14:47 IVPB 100 mls/hr Q8H KHARI Administration Protocol Sodium Chloride 1,000 mls @ 125 mls/hr 06/25/18 14:00 06/27/18 17:45 Sodium Chloride 0.9% IV 125 mls/hr .Q8H KHARI Administration Methylprednisolone 40 mg 06/25/18 12:00 06/27/18 11:47 Solu-Medrol IVP 40 mg Q12H KHARI Administration Metoprolol Tartrate 25 mg 06/27/18 18:00 06/27/18 17:48 Lopressor PO 25 mg BID KHARI Administration Pantoprazole Sodium 40 mg 06/27/18 11:30 06/27/18 11:47 Protonix Ec Tab PO 40 mg DAILY KHARI Administration Ritonavir 100 mg 06/27/18 16:30 06/27/18 17:46 Norvir PO 100 mg BIDBS KHARI Administration Protocol - Patient Studies Lab Studies: Microbiology Studies 06/24/18 20:00 Blood Culture - Preliminary Blood NO GROWTH AFTER 48 HOURS 06/24/18 22:30 Blood Culture - Preliminary Blood NO GROWTH AFTER 48 HOURS 06/24/18 23:25 Urine Culture - Final Urine,Catheterized No Growth (<1,000 CFU/ML) Lab Studies 06/27/18 06/27/18 06/26/18 Range/Units 05:43 04:00 00:27 WBC 6.2 (4.8-10.8) K/uL RBC 3.35 L (3.80-5.20) Mil/uL Hgb 9.5 L (11.0-16.0) g/dL Hct 28.9 L (34.0-47.0) % MCV 86.1 (81.0-99.0) fL MCH 28.5 (27.0-31.0) pg MCHC 33.1 (33.0-37.0) g/dL RDW 15.2 H (11.5-14.5) % Plt Count 236 (130-400) K/uL MPV 9.0 (7.2-11.7) fL Neut % (Auto) 86.9 H (50.0-75.0) % Lymph % (Auto) 7.4 L (20.0-40.0) % [place] % (Auto) 5.4 (0.0-10.0) % Eos % (Auto) 0.1 (0.0-4.0) % Baso % (Auto) 0.2 (0.0-2.0) % Neut # (Auto) 5.4 (1.8-7.0) K/uL Lymph # (Auto) 0.5 L (1.0-4.3) K/uL [place] # (Auto) 0.3 (0.0-0.8) K/uL Eos # (Auto) 0.0 (0.0-0.7) K/uL Baso # (Auto) 0.0 (0.0-0.2) K/uL Neutrophils % (Manual) 77 H (50-75) % Band Neutrophils % 9 H (0-2) % Lymphocytes % (Manual) 5 L (20-40) % Reactive Lymphs % 2 H (0-0) % Monocytes % (Manual) 6 (0-10) % Metamyelocytes % 1 H (0-0) % Platelet Estimate Normal (NORMAL) Hypochromasia (manual) Slight Anisocytosis (manual) Slight Ovalocytes Slight Sodium 139 (132-148) mmol/L Potassium 4.0 (3.6-5.2) mmol/L Chloride 118 H (98-107) mmol/L Carbon Dioxide 16 L (22-30) mmol/L Anion Gap 9 L (10-20) BUN 24 H (7-17) mg/dL Creatinine 0.8 (0.7-1.2) mg/dL Est GFR ( Amer) > 60 Est GFR (Non-Af Amer) > 60 Random Glucose 118 H (65-105) mg/dL Calcium 7.8 L (8.6-10.4) mg/dl Phosphorus 2.3 L (2.5-4.5) mg/dL Magnesium 2.2 (1.6-2.3) mg/dL Total Bilirubin 0.2 (0.2-1.3) mg/dL AST 32 (14-36) U/L ALT 35 (9-52) U/L Alkaline Phosphatase 52 (38-126) U/L Total Protein 5.7 L (6.3-8.3) g/dL Albumin 2.1 L (3.5-5.0) g/dL Globulin 3.6 (2.2-3.9) gm/dL Albumin/Globulin Ratio 0.6 L (1.0-2.1) Absolute Lymphs (Flow) (850-3900) Cells/mcL % CD4 Cells (30-61) Percent Absolute CD4 Count (490-1740) Cells/mcL T-Help/Suppress Ratio (0.86-5.00) Ratio % CD8 Cells (12-42) Percent Absolute CD8 Count (180-1170) Cells/mcL T-Lymph Analys Comment Ur L.pneumophila Ag Negative (NEGATIVE) 06/25/18 Range/Units 05:17 WBC (4.8-10.8) K/uL RBC (3.80-5.20) Mil/uL Hgb (11.0-16.0) g/dL Hct (34.0-47.0) % MCV (81.0-99.0) fL MCH (27.0-31.0) pg MCHC (33.0-37.0) g/dL RDW (11.5-14.5) % Plt Count (130-400) K/uL MPV (7.2-11.7) fL Neut % (Auto) (50.0-75.0) % Lymph % (Auto) (20.0-40.0) % [place] % (Auto) (0.0-10.0) % Eos % (Auto) (0.0-4.0) % Baso % (Auto) (0.0-2.0) % Neut # (Auto) (1.8-7.0) K/uL Lymph # (Auto) (1.0-4.3) K/uL [place] # (Auto) (0.0-0.8) K/uL Eos # (Auto) (0.0-0.7) K/uL Baso # (Auto) (0.0-0.2) K/uL Neutrophils % (Manual) (50-75) % Band Neutrophils % (0-2) % Lymphocytes % (Manual) (20-40) % Reactive Lymphs % (0-0) % Monocytes % (Manual) (0-10) % Metamyelocytes % (0-0) % Platelet Estimate (NORMAL) Hypochromasia (manual) Anisocytosis (manual) Ovalocytes Sodium (132-148) mmol/L Potassium (3.6-5.2) mmol/L Chloride (98-107) mmol/L Carbon Dioxide (22-30) mmol/L Anion Gap (10-20) BUN (7-17) mg/dL Creatinine (0.7-1.2) mg/dL Est GFR ( Amer) Est GFR (Non-Af Amer) Random Glucose (65-105) mg/dL Calcium (8.6-10.4) mg/dl Phosphorus (2.5-4.5) mg/dL Magnesium (1.6-2.3) mg/dL Total Bilirubin (0.2-1.3) mg/dL AST (14-36) U/L ALT (9-52) U/L Alkaline Phosphatase (38-126) U/L Total Protein (6.3-8.3) g/dL Albumin (3.5-5.0) g/dL Globulin (2.2-3.9) gm/dL Albumin/Globulin Ratio (1.0-2.1) Absolute Lymphs (Flow) 418 L (850-3900) Cells/mcL % CD4 Cells 2 L (30-61) Percent Absolute CD4 Count <20 L (490-1740) Cells/mcL T-Help/Suppress Ratio 0.03 L (0.86-5.00) Ratio % CD8 Cells 73 H (12-42) Percent Absolute CD8 Count 304 (180-1170) Cells/mcL T-Lymph Analys Comment See note Ur L.pneumophila Ag (NEGATIVE) Laboratory Results - last 24 hr 06/25/18 06/26/18 06/27/18 05:17 00:27 04:00 WBC 6.2 RBC 3.35 L Hgb 9.5 L Hct 28.9 L MCV 86.1 MCH 28.5 MCHC 33.1 RDW 15.2 H Plt Count 236 MPV 9.0 Neut % (Auto) 86.9 H Lymph % (Auto) 7.4 L [place] % (Auto) 5.4 Eos % (Auto) 0.1 Baso % (Auto) 0.2 Neut # (Auto) 5.4 Lymph # (Auto) 0.5 L [place] # (Auto) 0.3 Eos # (Auto) 0.0 Baso # (Auto) 0.0 Neutrophils % (Manual) 77 H Band Neutrophils % 9 H Lymphocytes % (Manual) 5 L Reactive Lymphs % 2 H Monocytes % (Manual) 6 Metamyelocytes % 1 H Platelet Estimate Normal Hypochromasia (manual) Slight Anisocytosis (manual) Slight Ovalocytes Slight Sodium Potassium Chloride Carbon Dioxide Anion Gap BUN Creatinine Est GFR ( Amer) Est GFR (Non-Af Amer) Random Glucose Calcium Phosphorus Magnesium Total Bilirubin AST ALT Alkaline Phosphatase Total Protein Albumin Globulin Albumin/Globulin Ratio Absolute Lymphs (Flow) 418 L % CD4 Cells 2 L Absolute CD4 Count <20 L T-Help/Suppress Ratio 0.03 L % CD8 Cells 73 H Absolute CD8 Count 304 T-Lymph Analys Comment See note Ur L.pneumophila Ag Negative 06/27/18 05:43 WBC RBC Hgb Hct MCV MCH MCHC RDW Plt Count MPV Neut % (Auto) Lymph % (Auto) [place] % (Auto) Eos % (Auto) Baso % (Auto) Neut # (Auto) Lymph # (Auto) [place] # (Auto) Eos # (Auto) Baso # (Auto) Neutrophils % (Manual) Band Neutrophils % Lymphocytes % (Manual) Reactive Lymphs % Monocytes % (Manual) Metamyelocytes % Platelet Estimate Hypochromasia (manual) Anisocytosis (manual) Ovalocytes Sodium 139 Potassium 4.0 Chloride 118 H Carbon Dioxide 16 L Anion Gap 9 L BUN 24 H Creatinine 0.8 Est GFR ( Amer) > 60 Est GFR (Non-Af Amer) > 60 Random Glucose 118 H Calcium 7.8 L Phosphorus 2.3 L Magnesium 2.2 Total Bilirubin 0.2 AST 32 ALT 35 Alkaline Phosphatase 52 Total Protein 5.7 L Albumin 2.1 L Globulin 3.6 Albumin/Globulin Ratio 0.6 L Absolute Lymphs (Flow) % CD4 Cells Absolute CD4 Count T-Help/Suppress Ratio % CD8 Cells Absolute CD8 Count T-Lymph Analys Comment Ur L.pneumophila Ag EKG/Cardiology Studies: Cardiology / EKG Studies 06/26/18 18:53 EKG [ELECTROCARDIOGRAM] Stat Comment: Mode Of Transportation: PORTABLE Reason For Exam: SVT Review of Systems - Review of Systems All systems: reviewed and no additional remarkable complaints except Critical Care Progress Note - Nutrition Nutrition: Nutrition Category Date Time Status Regular Diet [DIET] Diets 06/26/18 Breakfast Active Assessment/Plan - Assessment and Plan (Free Text) Assessment: 57 yo F presents with bilateral pneumonia shown on CT scan 06/25/18. Patient was treated with Levophed, which was tapered down. Currently off levophed. Patient monitored closely and treated in ICU. PICC line placed 06/27. Central line removed 06/27 Neuro: - Alert and orientedx3 - Monitor mental status - Not currently on sedation Cardio Vasc: Hypotension - Maintain MAP >60 - Recieved cardizem x2 ivp and toprol 2.5 when admitted - 1 L [place] bolus - Transfuse 1 unit of PRBCs Pulm: Multilobar pna - Cefepime - Vanco - Bactrim - BIPAP - Duonebs q6 - Solu-medrol 40 IVP - Maintain spO2 >92% - Dr Rosenbaum ID consulted recommendations appreciated - ABG obtained - Start Mucomist Q6 - Start Guaifenesin 600mg PO BID - Start Chest physical therapy - Start incentive spirometry - Start High Flow O2 Renal OSVALDO - Resolved - Monitor I&Os - ABG obtained - Monitor CMP, Mg, Phos Dehydration - [place] @ 100ml/hr ID Possible sepsis - IV Cefepime, Vanco and Bactrim - Dr Rosenbaum Consulted; Recommendations appreciated - Monitor CBC with diff HIV/AIDS, noncompliance -Follow-up CD4 GI: - No acute issues - Started diet Endo - No acute issues - Maintain euglycemia 120-180 glucose GI/ PPX - Protonix IV - Heparin 5000u sq Patient seen and case discussed in detail with Dr. Mo Bañuelos PGY1 <Smith Hassan S - Last Filed: 06/27/18 18:48> CCU Objective - Vital Signs / Intake & Output Vital Signs (Last 4 hours): Vital Signs Temp Pulse Resp BP Pulse Ox 06/27/18 18:01 88 45 H 117/68 94 L 06/27/18 18:00 89 46 H 100 06/27/18 17:48 110/50 L 06/27/18 17:01 67 22 110/71 99 06/27/18 17:00 83 24 95 06/27/18 16:01 89 25 H 99/66 L 94 L 06/27/18 16:00 97.3 F L 64 28 H 98 06/27/18 15:01 105/65 06/27/18 15:00 65 39 H 99 Intake and Output (Last 8hrs): Intake & Output 06/27/18 06/27/18 06/27/18 06:59 14:59 22:59 Intake Total 1840 1240 1200 Output Total 700 500 400 Balance 1140 740 800 Weight 141 lb 5 oz Intake: Intake, IV Amount 1600 1000 600 Right Medial Port 1600 1000 600 Internal Jugular Oral 240 240 600 Output: Urine 700 500 400 Urine, Voided 700 500 400 Other: # Bowel Movements 0 - Medications Active Medications: Active Medications Generic Name Dose Route Start Last Admin Trade Name Freq PRN Reason Stop Dose Admin Acetaminophen 975 mg 06/24/18 22:16 06/24/18 22:28 Tylenol 325mg Tab PO 975 mg ONCE PRN Administration Fever >100.4 F Acetylcysteine 4 ml 06/26/18 20:00 06/27/18 13:11 Acetylcysteine 20% INH Not Given RQ6 KHARI Albuterol/Ipratropium 3 ml 06/25/18 14:00 06/27/18 13:11 Duoneb 3 Mg/0.5 Mg (3 Ml) Ud INH Not Given RQ6 KHARI Azithromycin 1,200 mg 06/27/18 16:15 06/27/18 17:47 Zithromax PO 1,200 mg Q7D KHARI Administration Protocol Darunavir 600 mg 06/27/18 18:00 06/27/18 17:46 Prezista PO 600 mg BID KHARI Administration Protocol Emtricitabine/Tenofovir 1 tab 06/27/18 16:15 06/27/18 17:47 Truvada 200 Mg-300 Mg PO 1 tab Q24H KHARI Administration Protocol Guaifenesin 600 mg 06/26/18 18:00 06/27/18 17:50 Mucinex La PO 600 mg BID KHARI Administration Heparin Sodium (Porcine) 5,000 units 06/25/18 10:00 06/27/18 09:32 Heparin SC 5,000 units Q12 KHARI Administration Trimethoprim/Sulfamethoxazole 250 mls @ 250 mls/hr 06/25/18 00:30 06/27/18 14:00 240 mg/ Dextrose IVPB 250 mls/hr Q6H KHARI Administration Protocol Cefepime HCl 1 gm/ Dextrose 50 mls @ 100 mls/hr 06/25/18 07:00 06/27/18 14:47 IVPB 100 mls/hr Q8H KHARI Administration Protocol Sodium Chloride 1,000 mls @ 125 mls/hr 06/25/18 14:00 06/27/18 17:45 Sodium Chloride 0.9% IV 125 mls/hr .Q8H KHARI Administration Methylprednisolone 40 mg 06/25/18 12:00 06/27/18 11:47 Solu-Medrol IVP 40 mg Q12H KHARI Administration Metoprolol Tartrate 25 mg 06/27/18 18:00 06/27/18 17:48 Lopressor PO 25 mg BID KHARI Administration Pantoprazole Sodium 40 mg 06/27/18 11:30 06/27/18 11:47 Protonix Ec Tab PO 40 mg DAILY KHARI Administration Ritonavir 100 mg 06/27/18 16:30 06/27/18 17:46 Norvir PO 100 mg BIDBS KHARI Administration Protocol - Patient Studies Lab Studies: Microbiology Studies 06/24/18 20:00 Blood Culture - Preliminary Blood NO GROWTH AFTER 48 HOURS 06/24/18 22:30 Blood Culture - Preliminary Blood NO GROWTH AFTER 48 HOURS 06/24/18 23:25 Urine Culture - Final Urine,Catheterized No Growth (<1,000 CFU/ML) Lab Studies 06/27/18 06/27/18 06/26/18 Range/Units 05:43 04:00 00:27 WBC 6.2 (4.8-10.8) K/uL RBC 3.35 L (3.80-5.20) Mil/uL Hgb 9.5 L (11.0-16.0) g/dL Hct 28.9 L (34.0-47.0) % MCV 86.1 (81.0-99.0) fL MCH 28.5 (27.0-31.0) pg MCHC 33.1 (33.0-37.0) g/dL RDW 15.2 H (11.5-14.5) % Plt Count 236 (130-400) K/uL MPV 9.0 (7.2-11.7) fL Neut % (Auto) 86.9 H (50.0-75.0) % Lymph % (Auto) 7.4 L (20.0-40.0) % [place] % (Auto) 5.4 (0.0-10.0) % Eos % (Auto) 0.1 (0.0-4.0) % Baso % (Auto) 0.2 (0.0-2.0) % Neut # (Auto) 5.4 (1.8-7.0) K/uL Lymph # (Auto) 0.5 L (1.0-4.3) K/uL [place] # (Auto) 0.3 (0.0-0.8) K/uL Eos # (Auto) 0.0 (0.0-0.7) K/uL Baso # (Auto) 0.0 (0.0-0.2) K/uL Neutrophils % (Manual) 77 H (50-75) % Band Neutrophils % 9 H (0-2) % Lymphocytes % (Manual) 5 L (20-40) % Reactive Lymphs % 2 H (0-0) % Monocytes % (Manual) 6 (0-10) % Metamyelocytes % 1 H (0-0) % Platelet Estimate Normal (NORMAL) Hypochromasia (manual) Slight Anisocytosis (manual) Slight Ovalocytes Slight Sodium 139 (132-148) mmol/L Potassium 4.0 (3.6-5.2) mmol/L Chloride 118 H (98-107) mmol/L Carbon Dioxide 16 L (22-30) mmol/L Anion Gap 9 L (10-20) BUN 24 H (7-17) mg/dL Creatinine 0.8 (0.7-1.2) mg/dL Est GFR ( Amer) > 60 Est GFR (Non-Af Amer) > 60 Random Glucose 118 H (65-105) mg/dL Calcium 7.8 L (8.6-10.4) mg/dl Phosphorus 2.3 L (2.5-4.5) mg/dL Magnesium 2.2 (1.6-2.3) mg/dL Total Bilirubin 0.2 (0.2-1.3) mg/dL AST 32 (14-36) U/L ALT 35 (9-52) U/L Alkaline Phosphatase 52 (38-126) U/L Total Protein 5.7 L (6.3-8.3) g/dL Albumin 2.1 L (3.5-5.0) g/dL Globulin 3.6 (2.2-3.9) gm/dL Albumin/Globulin Ratio 0.6 L (1.0-2.1) Absolute Lymphs (Flow) (850-3900) Cells/mcL % CD4 Cells (30-61) Percent Absolute CD4 Count (490-1740) Cells/mcL T-Help/Suppress Ratio (0.86-5.00) Ratio % CD8 Cells (12-42) Percent Absolute CD8 Count (180-1170) Cells/mcL T-Lymph Analys Comment Ur L.pneumophila Ag Negative (NEGATIVE) 06/25/18 Range/Units 05:17 WBC (4.8-10.8) K/uL RBC (3.80-5.20) Mil/uL Hgb (11.0-16.0) g/dL Hct (34.0-47.0) % MCV (81.0-99.0) fL MCH (27.0-31.0) pg MCHC (33.0-37.0) g/dL RDW (11.5-14.5) % Plt Count (130-400) K/uL MPV (7.2-11.7) fL Neut % (Auto) (50.0-75.0) % Lymph % (Auto) (20.0-40.0) % [place] % (Auto) (0.0-10.0) % Eos % (Auto) (0.0-4.0) % Baso % (Auto) (0.0-2.0) % Neut # (Auto) (1.8-7.0) K/uL Lymph # (Auto) (1.0-4.3) K/uL [place] # (Auto) (0.0-0.8) K/uL Eos # (Auto) (0.0-0.7) K/uL Baso # (Auto) (0.0-0.2) K/uL Neutrophils % (Manual) (50-75) % Band Neutrophils % (0-2) % Lymphocytes % (Manual) (20-40) % Reactive Lymphs % (0-0) % Monocytes % (Manual) (0-10) % Metamyelocytes % (0-0) % Platelet Estimate (NORMAL) Hypochromasia (manual) Anisocytosis (manual) Ovalocytes Sodium (132-148) mmol/L Potassium (3.6-5.2) mmol/L Chloride (98-107) mmol/L Carbon Dioxide (22-30) mmol/L Anion Gap (10-20) BUN (7-17) mg/dL Creatinine (0.7-1.2) mg/dL Est GFR ( Amer) Est GFR (Non-Af Amer) Random Glucose (65-105) mg/dL Calcium (8.6-10.4) mg/dl Phosphorus (2.5-4.5) mg/dL Magnesium (1.6-2.3) mg/dL Total Bilirubin (0.2-1.3) mg/dL AST (14-36) U/L ALT (9-52) U/L Alkaline Phosphatase (38-126) U/L Total Protein (6.3-8.3) g/dL Albumin (3.5-5.0) g/dL Globulin (2.2-3.9) gm/dL Albumin/Globulin Ratio (1.0-2.1) Absolute Lymphs (Flow) 418 L (850-3900) Cells/mcL % CD4 Cells 2 L (30-61) Percent Absolute CD4 Count <20 L (490-1740) Cells/mcL T-Help/Suppress Ratio 0.03 L (0.86-5.00) Ratio % CD8 Cells 73 H (12-42) Percent Absolute CD8 Count 304 (180-1170) Cells/mcL T-Lymph Analys Comment See note Ur L.pneumophila Ag (NEGATIVE) Laboratory Results - last 24 hr 06/25/18 06/26/18 06/27/18 05:17 00:27 04:00 WBC 6.2 RBC 3.35 L Hgb 9.5 L Hct 28.9 L MCV 86.1 MCH 28.5 MCHC 33.1 RDW 15.2 H Plt Count 236 MPV 9.0 Neut % (Auto) 86.9 H Lymph % (Auto) 7.4 L [place] % (Auto) 5.4 Eos % (Auto) 0.1 Baso % (Auto) 0.2 Neut # (Auto) 5.4 Lymph # (Auto) 0.5 L [place] # (Auto) 0.3 Eos # (Auto) 0.0 Baso # (Auto) 0.0 Neutrophils % (Manual) 77 H Band Neutrophils % 9 H Lymphocytes % (Manual) 5 L Reactive Lymphs % 2 H Monocytes % (Manual) 6 Metamyelocytes % 1 H Platelet Estimate Normal Hypochromasia (manual) Slight Anisocytosis (manual) Slight Ovalocytes Slight Sodium Potassium Chloride Carbon Dioxide Anion Gap BUN Creatinine Est GFR ( Amer) Est GFR (Non-Af Amer) Random Glucose Calcium Phosphorus Magnesium Total Bilirubin AST ALT Alkaline Phosphatase Total Protein Albumin Globulin Albumin/Globulin Ratio Absolute Lymphs (Flow) 418 L % CD4 Cells 2 L Absolute CD4 Count <20 L T-Help/Suppress Ratio 0.03 L % CD8 Cells 73 H Absolute CD8 Count 304 T-Lymph Analys Comment See note Ur L.pneumophila Ag Negative 06/27/18 05:43 WBC RBC Hgb Hct MCV MCH MCHC RDW Plt Count MPV Neut % (Auto) Lymph % (Auto) [place] % (Auto) Eos % (Auto) Baso % (Auto) Neut # (Auto) Lymph # (Auto) [place] # (Auto) Eos # (Auto) Baso # (Auto) Neutrophils % (Manual) Band Neutrophils % Lymphocytes % (Manual) Reactive Lymphs % Monocytes % (Manual) Metamyelocytes % Platelet Estimate Hypochromasia (manual) Anisocytosis (manual) Ovalocytes Sodium 139 Potassium 4.0 Chloride 118 H Carbon Dioxide 16 L Anion Gap 9 L BUN 24 H Creatinine 0.8 Est GFR ( Amer) > 60 Est GFR (Non-Af Amer) > 60 Random Glucose 118 H Calcium 7.8 L Phosphorus 2.3 L Magnesium 2.2 Total Bilirubin 0.2 AST 32 ALT 35 Alkaline Phosphatase 52 Total Protein 5.7 L Albumin 2.1 L Globulin 3.6 Albumin/Globulin Ratio 0.6 L Absolute Lymphs (Flow) % CD4 Cells Absolute CD4 Count T-Help/Suppress Ratio % CD8 Cells Absolute CD8 Count T-Lymph Analys Comment Ur L.pneumophila Ag EKG/Cardiology Studies: Cardiology / EKG Studies 06/26/18 18:53 EKG [ELECTROCARDIOGRAM] Stat Comment: Mode Of Transportation: PORTABLE Reason For Exam: SVT Critical Care Progress Note - Nutrition Nutrition: Nutrition Category Date Time Status Regular Diet [DIET] Diets 06/26/18 Breakfast Active Attending/Attestation - Attestation I have personally seen and examined this patient.: Yes I have fully participated in the care of the patient.: Yes I have reviewed all pertinent clinical information: Yes Notes (Text): 06/27/18 18:47 patient seen and examined in the intensive care unit. Continue IV antibiotics Patient is off pressors Follow-up chest x-ray and ABG
--- NOTE | 2018-06-27 21:23 | CP.PCM.PN ---
Subjective - Date & Time of Evaluation Date of Evaluation: 06/27/18 Time of Evaluation: 13:15 - Subjective Subjective: clinically same Objective - Vital Signs/Intake and Output Vital Signs (last 24 hours): Temp Pulse Resp BP Pulse Ox 97.7 F 77 40 H 96/53 L 91 L 06/27/18 20:00 06/27/18 20:01 06/27/18 20:01 06/27/18 20:01 06/27/18 20:01 Intake and Output: 06/27/18 06/28/18 18:59 06:59 Intake Total 2440 500 Output Total 900 Balance 1540 500 - Medications Medications: Current Medications Acetaminophen (Tylenol 325mg Tab) 975 mg PO ONCE PRN PRN Reason: Fever >100.4 F Last Admin: 06/24/18 22:28 Dose: 975 mg Acetylcysteine (Acetylcysteine 20%) 4 ml INH RQ6 KHARI Last Admin: 06/27/18 19:33 Dose: Not Given Albuterol/Ipratropium (Duoneb 3 Mg/0.5 Mg (3 Ml) Ud) 3 ml INH RQ6 [facility]I Last Admin: 06/27/18 19:33 Dose: Not Given Azithromycin (Zithromax) 1,200 mg PO Q7D [facility]; Protocol Last Admin: 06/27/18 17:47 Dose: 1,200 mg Darunavir (Prezista) 600 mg PO BID [facility]; Protocol Last Admin: 06/27/18 17:46 Dose: 600 mg Emtricitabine/Tenofovir (Truvada 200 Mg-300 Mg) 1 tab PO Q24H [facility]; Protocol Last Admin: 06/27/18 17:47 Dose: 1 tab Guaifenesin (Mucinex La) 600 mg PO BID [facility] Last Admin: 06/27/18 17:50 Dose: 600 mg Heparin Sodium (Porcine) (Heparin) 5,000 units SC Q12 [facility] Last Admin: 06/27/18 09:32 Dose: 5,000 units Trimethoprim/Sulfamethoxazole (240 mg/ Dextrose) 250 mls @ 250 mls/hr IVPB Q6H [facility]; Protocol Last Admin: 06/27/18 19:32 Dose: 250 mls/hr Cefepime HCl 1 gm/ Dextrose 50 mls @ 100 mls/hr IVPB Q8H [facility]; Protocol Last Admin: 06/27/18 14:47 Dose: 100 mls/hr Sodium Chloride (Sodium Chloride 0.9%) 1,000 mls @ 125 mls/hr IV .Q8H [facility] Last Admin: 06/27/18 17:45 Dose: 125 mls/hr Methylprednisolone (Solu-Medrol) 40 mg IVP Q12H [facility] Last Admin: 06/27/18 11:47 Dose: 40 mg Metoprolol Tartrate (Lopressor) 25 mg PO BID [facility] Last Admin: 06/27/18 17:48 Dose: 25 mg Pantoprazole Sodium (Protonix Ec Tab) 40 mg PO DAILY [facility] Last Admin: 06/27/18 11:47 Dose: 40 mg Ritonavir (Norvir) 100 mg PO BIDBS [facility]; Protocol Last Admin: 06/27/18 17:46 Dose: 100 mg - Labs Labs: 06/27/18 04:00 06/27/18 05:43 PT 13.4 SECONDS (9.7-12.2) H 06/24/18 22:42 INR 1.2 06/24/18 22:42 APTT 29 SECONDS (21-34) 06/24/18 22:42 - Constitutional Appears: Well - Head Exam Head Exam: ATRAUMATIC, NORMAL INSPECTION, NORMOCEPHALIC - Eye Exam Eye Exam: EOMI, Normal appearance, PERRL Pupil Exam: NORMAL ACCOMODATION, PERRL - ENT Exam ENT Exam: Mucous Membranes Moist, Normal Exam - Neck Exam Neck Exam: Full ROM, Normal Inspection. absent: Lymphadenopathy - Respiratory Exam Respiratory Exam: Decreased Breath Sounds - Cardiovascular Exam Cardiovascular Exam: REGULAR RHYTHM, +S1, +S2 - GI/Abdominal Exam GI & Abdominal Exam: Soft, Diminished Bowel Sounds - Rectal Exam Rectal Exam: Deferred
[2018-06-28] MEDS: Sulfamethoxazole/Trimethoprim 240 MG in Dextrose 5% In Water 250 ML IVPB SCH ×3 (00:15→21:12)
[2018-06-28] MEDS: MethylPREDNISolone 40 mg Vial IVP SCH ×3 (00:45→23:53)
[2018-06-28] MEDS: Acetylcysteine 20% Inhal Soln (4ml) INH SCH ×4 (01:08→20:06)
[2018-06-28] MEDS: Albuterol-Ipratrop 3 mg / 0.5 (3 ml) UD INH SCH ×4 (01:24→20:06)
[2018-06-28 05:42] LABS: EOS % 0.1 % (0.0-4.0); HEMOGLOBIN 9.9 g/dL (11.0-16.0); LYMPH # 0.5 K/uL (1.0-4.3); MEAN CELL VOLUME 86.2 fL (81.0-99.0); MEAN CORPUSCULAR HEMOGLOBIN 28.4 pg (27.0-31.0); MEAN CORPUSCULAR HGB CONC 32.9 g/dL (33.0-37.0); MEAN PLATELET VOLUME 8.7 fL (7.2-11.7); MONO # 0.4 K/uL (0.0-0.8); MONO % 5.4 % (0.0-10.0); NEUT # 6.9 K/uL (1.8-7.0); NEUT % 88.5 % (50.0-75.0); NRBC % 0.2 % (0.0-2.0); PLATELET COUNT 239 K/uL (130-400); RBC 3.49 Mil/uL (3.80-5.20); RED CELL DISTRIBUTION WIDTH 15.5 % (11.5-14.5); WHITE BLOOD COUNT 7.8 K/uL (4.8-10.8)
[2018-06-28 06:10] LABS: ALB/GLOB RATIO 0.6 (1.0-2.1); ALBUMIN 2.3 g/dL (3.5-5.0); ALT/SGPT 39 U/L (9-52); AST/SGOT 46 U/L (14-36); BLOOD UREA NITROGEN 22 mg/dL (7-17); CALCIUM 8.1 mg/dl (8.6-10.4); GFR NON-AFRICAN AMERICAN > 60
[2018-06-28] MEDS: Sodium Chloride 0.9% 1,000 ML IV SCH ×3 (07:02→14:00)
[2018-06-28 08:28] LABS: BANDS 2 % (0-2); BASOPHIL 1 % (0-2); EOSINOPHIL 1 % (0-4); LYMPHOCYTE 7 % (20-40); MONOCYTE 5 % (0-10); NEUTROPHIL 84 % (50-75); PLATELET ESTIMATE NORMAL (NORMAL); TOTAL CELLS COUNTED 100
[2018-06-28 08:29] LABS: ANISOCYTOSIS SLIGHT; POIKILOCYTOSIS SLIGHT
--- NOTE | 2018-06-28 08:29 | RAD ---
Chest x-ray single frontal view HISTORY: Post PICC line insertion. COMPARISON: 11/16/2017 FINDINGS: Right PICC line with tip extending to the distal right SVC. Suggestion of an additional right central venous catheter and or tubing projecting over the medial right hemithorax extending to the level of the cavoatrial junction. Clinical correlation. Additional tubing projecting over the right hemithorax. Moderate venous congestion. Prominent patchy bilateral airspace opacities with a suggestion of a small right pleural effusion. Cardiomegaly. Degenerative changes in the spine. Impression: Right PICC line with tip extending to the distal right SVC. Suggestion of an additional right central venous catheter and or tubing projecting over the medial right hemithorax extending to the level of the cavoatrial junction. Clinical correlation. Additional tubing projecting over the right hemithorax. Moderate venous congestion. Prominent patchy bilateral airspace opacities with a suggestion of a small right pleural effusion. Cardiomegaly.
[2018-06-28 08:30] LABS: GIANT PLATELETS PRESENT; HYPOCHROMIC SLIGHT; OVALOCYTES SLIGHT
--- NOTE | 2018-06-28 08:59 | CP.CCUPN ---
<HelenaHolly - Last Filed: 06/28/18 16:13> CCU Subjective - Physician Review Events Since Last Encounter (Free Text): 06/28/18 08:53 no over night events Subjective (Free Text): 06/28/18 16:13 Patient was seen and examined this morning. She has no acute complaints. She is saturating well on vaptherm- no acute distress. She is alert but speech is slow and nonspontaneous. Critical Care Time Spent (in minutes): 35 CCU Objective - Vital Signs / Intake & Output Vital Signs (Last 4 hours): Vital Signs Temp Pulse Resp BP Pulse Ox 06/28/18 08:01 108/70 06/28/18 08:00 97.4 F L 76 38 H 100 06/28/18 07:33 24 06/28/18 07:01 71 15 91/62 L 100 06/28/18 07:00 80 22 99 06/28/18 06:01 64 19 92/62 L 98 06/28/18 06:00 68 28 H 98 06/28/18 05:20 27 H 06/28/18 05:01 61 35 H 105/69 97 06/28/18 05:00 65 33 H Intake and Output (Last 8hrs): Intake & Output 06/27/18 06/28/18 06/28/18 22:59 06:59 14:59 Intake Total 1825 850 250 Output Total 800 750 300 Balance 1025 100 -50 Intake: Intake, IV Amount 1225 850 250 Right Medial Port 1225 850 250 Internal Jugular Oral 600 Output: Urine 800 750 300 Urine, Voided 800 750 300 Other: # Voids Urine, Voided 1 1 - Physical Exam Head: Positive for: Atraumatic, Normocephalic Pupils: Positive for: PERRL Extroacular Muscles: Positive for: EOMI Conjunctiva: Positive for: Normal Mouth: Positive for: Moist Mucous Membranes, Normal Tounge Pharnyx: Negative for: Uvular Deviation Respiratory/Chest: Positive for: Decreased Breath Sounds (bilateral upper lobes). Negative for: Wheezes, Rales, Rhonchi Cardiovascular: Positive for: Regular Rate and Rhythm, Normal S1, S2 Abdomen: Negative for: Tenderness, Distention Upper Extremity: Positive for: Normal Inspection. Negative for: Edema Lower Extremity: Positive for: Normal Inspection. Negative for: Edema Neurological: Positive for: CN II-XII Intact Skin: Positive for: Warm, Diaphoretic Psychiatric: Positive for: Lethargic - Medications Active Medications: Active Medications Generic Name Dose Route Start Last Admin Trade Name Freq PRN Reason Stop Dose Admin Acetaminophen 975 mg 06/24/18 22:16 06/24/18 22:28 Tylenol 325mg Tab PO 975 mg ONCE PRN Administration Fever >100.4 F Acetylcysteine 4 ml 06/26/18 20:00 06/28/18 07:30 Acetylcysteine 20% INH 4 ml RQ6 KHARI Administration Albuterol/Ipratropium 3 ml 06/25/18 14:00 06/28/18 07:30 Duoneb 3 Mg/0.5 Mg (3 Ml) Ud INH 3 ml RQ6 KHARI Administration Azithromycin 1,200 mg 06/27/18 16:15 06/27/18 17:47 Zithromax PO 1,200 mg Q7D KHARI Administration Protocol Darunavir 600 mg 06/27/18 18:00 06/27/18 17:46 Prezista PO 600 mg BID KHARI Administration Protocol Emtricitabine/Tenofovir 1 tab 06/27/18 16:15 06/27/18 17:47 Truvada 200 Mg-300 Mg PO 1 tab Q24H KHARI Administration Protocol Guaifenesin 600 mg 06/26/18 18:00 06/27/18 17:50 Mucinex La PO 600 mg BID KHARI Administration Heparin Sodium (Porcine) 5,000 units 06/25/18 10:00 06/27/18 22:27 Heparin SC 5,000 units Q12 KHARI Administration Cefepime HCl 1 gm/ Dextrose 50 mls @ 100 mls/hr 06/25/18 07:00 06/28/18 06:45 IVPB 100 mls/hr Q8H KHARI Administration Protocol Sodium Chloride 1,000 mls @ 125 mls/hr 06/25/18 14:00 06/28/18 07:02 Sodium Chloride 0.9% IV Not Given .Q8H KHARI Methylprednisolone 40 mg 06/25/18 12:00 06/28/18 00:45 Solu-Medrol IVP 40 mg Q12H KHARI Administration Metoprolol Tartrate 25 mg 06/27/18 18:00 06/27/18 17:48 Lopressor PO 25 mg BID KHARI Administration Pantoprazole Sodium 40 mg 06/27/18 11:30 06/27/18 11:47 Protonix Ec Tab PO 40 mg DAILY KHARI Administration Ritonavir 100 mg 06/27/18 16:30 06/27/18 17:46 Norvir PO 100 mg BIDBS KHARI Administration Protocol - Patient Studies Lab Studies: Microbiology Studies 06/24/18 20:00 Blood Culture - Preliminary Blood NO GROWTH AFTER 3 DAYS 06/24/18 22:30 Blood Culture - Preliminary Blood NO GROWTH AFTER 3 DAYS 06/25/18 21:26 Gram Stain - Final Sputum Induced Lab Studies 06/28/18 06/28/18 06/25/18 Range/Units 05:30 05:30 05:17 WBC 7.8 (4.8-10.8) K/uL RBC 3.49 L (3.80-5.20) Mil/uL Hgb 9.9 L (11.0-16.0) g/dL Hct 30.1 L (34.0-47.0) % MCV 86.2 (81.0-99.0) fL MCH 28.4 (27.0-31.0) pg MCHC 32.9 L (33.0-37.0) g/dL RDW 15.5 H (11.5-14.5) % Plt Count 239 (130-400) K/uL MPV 8.7 (7.2-11.7) fL Neut % (Auto) 88.5 H (50.0-75.0) % Lymph % (Auto) 6.0 L (20.0-40.0) % [place] % (Auto) 5.4 (0.0-10.0) % Eos % (Auto) 0.1 (0.0-4.0) % Baso % (Auto) 0.0 (0.0-2.0) % Neut # (Auto) 6.9 (1.8-7.0) K/uL Lymph # (Auto) 0.5 L (1.0-4.3) K/uL [place] # (Auto) 0.4 (0.0-0.8) K/uL Eos # (Auto) 0.0 (0.0-0.7) K/uL Baso # (Auto) 0.0 (0.0-0.2) K/uL Neutrophils % (Manual) 84 H (50-75) % Band Neutrophils % 2 (0-2) % Lymphocytes % (Manual) 7 L (20-40) % Monocytes % (Manual) 5 (0-10) % Eosinophils % (Manual) 1 (0-4) % Basophils % (Manual) 1 (0-2) % Platelet Estimate Normal (NORMAL) Giant Platelets Present Hypochromasia (manual) Slight Poikilocytosis (manual Slight Anisocytosis (manual) Slight Ovalocytes Slight Sodium 137 (132-148) mmol/L Potassium 4.7 (3.6-5.2) mmol/L Chloride 117 H (98-107) mmol/L Carbon Dioxide 17 L (22-30) mmol/L Anion Gap 8 L (10-20) BUN 22 H (7-17) mg/dL Creatinine 0.7 (0.7-1.2) mg/dL Est GFR ( Amer) > 60 Est GFR (Non-Af Amer) > 60 Random Glucose 114 H (65-105) mg/dL Calcium 8.1 L (8.6-10.4) mg/dl Phosphorus 2.3 L (2.5-4.5) mg/dL Magnesium 2.1 (1.6-2.3) mg/dL Total Bilirubin 0.2 (0.2-1.3) mg/dL AST 46 H D (14-36) U/L ALT 39 (9-52) U/L Alkaline Phosphatase 65 (38-126) U/L Total Protein 5.8 L (6.3-8.3) g/dL Albumin 2.3 L (3.5-5.0) g/dL Globulin 3.5 (2.2-3.9) gm/dL Albumin/Globulin Ratio 0.6 L (1.0-2.1) Absolute Lymphs (Flow) 418 L (850-3900) Cells/mcL % CD4 Cells 2 L (30-61) Percent Absolute CD4 Count <20 L (490-1740) Cells/mcL T-Help/Suppress Ratio 0.03 L (0.86-5.00) Ratio % CD8 Cells 73 H (12-42) Percent Absolute CD8 Count 304 (180-1170) Cells/mcL T-Lymph Analys Comment See note Laboratory Results - last 24 hr 06/25/18 06/28/1806/28/18 05:17 05:30 05:30 WBC 7.8 RBC 3.49 L Hgb 9.9 L Hct 30.1 L MCV 86.2 MCH 28.4 MCHC 32.9 L RDW 15.5 H Plt Count 239 MPV 8.7 Neut % (Auto) 88.5 H Lymph % (Auto) 6.0 L [place] % (Auto) 5.4 Eos % (Auto) 0.1 Baso % (Auto) 0.0 Neut # (Auto) 6.9 Lymph # (Auto) 0.5 L [place] # (Auto) 0.4 Eos # (Auto) 0.0 Baso # (Auto) 0.0 Neutrophils % (Manual) 84 H Band Neutrophils % 2 Lymphocytes % (Manual) 7 L Monocytes % (Manual) 5 Eosinophils % (Manual) 1 Basophils % (Manual) 1 Platelet Estimate Normal Giant Platelets Present Hypochromasia (manual) Slight Poikilocytosis (manual Slight Anisocytosis (manual) Slight Ovalocytes Slight Sodium 137 Potassium 4.7 Chloride 117 H Carbon Dioxide 17 L Anion Gap 8 L BUN 22 H Creatinine 0.7 Est GFR ( Amer) > 60 Est GFR (Non-Af Amer) > 60 Random Glucose 114 H Calcium 8.1 L Phosphorus 2.3 L Magnesium 2.1 Total Bilirubin 0.2 AST 46 H D ALT 39 Alkaline Phosphatase 65 Total Protein 5.8 L Albumin 2.3 L Globulin 3.5 Albumin/Globulin Ratio 0.6 L Absolute Lymphs (Flow) 418 L % CD4 Cells 2 L Absolute CD4 Count <20 L T-Help/Suppress Ratio 0.03 L % CD8 Cells 73 H Absolute CD8 Count 304 T-Lymph Analys Comment See note Results Reviewed to Date: Yes Review of Systems - Review of Systems All systems: reviewed and no additional remarkable complaints except - Constitutional Constitutional: absent: Fever, Chills, Sweats - EENT Eyes: absent: Change in Vision - Cardiovascular Cardiovascular: absent: Chest Pain, Diaphoresis, Dyspnea - Respiratory Respiratory: absent: Cough, Dyspnea - Genitourinary Genitourinary: absent: Dysuria, Hematuria - Musculoskeletal Musculoskeletal: UNREMARKABLE - Integumentary Integumentary: UNREMARKABLE. absent: Lesions - Neurological Neurological: UNREMARKABLE - Psychiatric Psychiatric: UNREMARKABLE - Endocrine Endocrine: UNREMARKABLE - Hematologic/Lymphatic Hematologic: UNREMARKABLE. absent: Easy Bleeding, Easy Bruising, Lymphadenopathy Critical Care Progress Note - Extremities/Vascular Does the Patient have a Central Venous Catheter?: No Does the Patient need a Central Venous Catheter?: No Does the Patient have a Queen Catheter?: No Does the Patient need a Queen Catheter?: No - Prophylaxis GI Prophylaxis GI: PPI - Prophylaxis DVT Prophylaxis DVT: Heparin SQ - Nutrition Nutrition: Nutrition Category Date Time Status Regular Diet [DIET] Diets 06/26/18 Breakfast Active Assessment/Plan - Assessment and Plan (Free Text) Assessment: Patient is a 57 yo female with a history of AIDS, schizophrenia, and cocaine abuse who presented after being found in a store with SOB and elevated HR. Code sepsis was called for fever, hypotension, and AMS. She was found to have multifocal PNA. She required Levophed drip and PRBC transfusion. She is now off pressors. Has R PICC for IV abx. Plan: Neuro: AMS- suspect 2/2 sepsis and/or medication noncompliance - AMS on presentation- improving, still lethargic - Monitor mental status CV: Hypotension - Off pressors - Maintain MAP >60 - Cardiology consulted (Jose Alberto) - B/l LE Dopplers: no DVT Pulm: Multilobar PNA- suspect PCP - CXR: prominent patchy b/l airspace opacities, small R pleural effusion, cardiomegaly - Bactrim 240 mg IV Q6H- started 06/25 (will need 21 days then ppx) - Cefepime 1 g IV Q8H- started 06/25 - Duonebs Q6H - Solu-medrol 40 mg IV Q12H - Maintain spO2 >92% - Acetylcysteine Q6H - Guaifenesin 600mg PO BID - Chest physiotherapy - Incentive spirometry - Maintain spO2>92%- high flow O2 - Consider pulm consult for bronchoscopy GI: - Regular diet : OSVALDO- resolved - Monitor I&Os - Consistently positive- last 24 hrs +905 mL - Replace electrolytes PRN - NS @ 75 mL/hr Endo: - Maintain euglycemia Heme: Anemia - 1 u PRBC (Hgb 8.5->11.4) - Hgb stable at 9.9 - Monitor H&H ID: Septic shock - Temp initially 103, then 94.9, now resolved to 97s - Tylenol 650 mg PO Q6H PRN - Blood Cx no growth >3 days - MRSA screen negative - Bactrim 240 mg IV Q6H- started 06/25 (will need 21 days then ppx) - Cefepime 1 g IV Q8H- started 06/25 - Discontinue vancomycin AIDS - CD4<20 - Truvada 200 mg/300 mg PO daily - Ritanavir 100 mg PO BID - Darunavir 600 mg PO BID - Azithromycin 1200 mg PO QWK - ID consulted (Roib) Psych: Substance use disorder- cocaine, tobacco - UDS positive for cocaine Schizophrenia - Reported h/o schizophrenia and medication noncompliance - Confirmed most recent meds with [facility] - Paxil 40 mg PO daily- will start 10 mg - Olanzapine 20 mg PO QHS- will start 10 mg - Trazodone 100 mg PO QHS- will start 50 mg PPx: VTE: heparin 5000 units SC Q12H GI: PTX 40 mg PO daily Case discussed with attending, Dr. Hidalgo. PGY-1 Holly Malik D.O. <Axel Hidalgo - Last Filed: 06/28/18 21:23> CCU Objective - Vital Signs / Intake & Output Vital Signs (Last 4 hours): Vital Signs Pulse Resp BP Pulse Ox 06/28/18 20:06 22 06/28/18 20:01 63 32 H 100/61 92 L 06/28/18 20:00 66 24 99 06/28/18 19:01 57 L 34 H 99/69 L 100 06/28/18 19:00 53 L 33 H 100 06/28/18 18:01 59 L 34 H 107/65 99 06/28/18 18:00 58 L 30 H 100 Intake and Output (Last 8hrs): Intake & Output 06/28/18 06/28/18 06/28/18 06:59 14:59 22:59 Intake Total 850 1555 965 Output Total 750 650 200 Balance 100 905 765 Intake: Intake, IV Amount 850 1075 525 Right Medial Port 850 1075 525 Internal Jugular Oral 480 440 Output: Urine 750 650 200 Urine, Voided 750 650 200 Other: # Voids Urine, Voided 1 1 # Bowel Movements 1 - Medications Active Medications: Active Medications Generic Name Dose Route Start Last Admin Trade Name Freq PRN Reason Stop Dose Admin Acetaminophen 975 mg 06/24/18 22:16 06/24/18 22:28 Tylenol 325mg Tab PO 975 mg ONCE PRN Administration Fever >100.4 F Acetylcysteine 4 ml 06/26/18 20:00 06/28/18 20:06 Acetylcysteine 20% INH 4 ml RQ6 KHARI Administration Albuterol/Ipratropium 3 ml 06/25/18 14:00 06/28/18 20:06 Duoneb 3 Mg/0.5 Mg (3 Ml) Ud INH 3 ml RQ6 KHARI Administration Azithromycin 1,200 mg 06/27/18 16:15 06/27/18 17:47 Zithromax PO 1,200 mg Q7D KHARI Administration Protocol Darunavir 600 mg 06/27/18 18:00 06/28/18 17:45 Prezista PO Not Given BID [facility] Protocol Diltiazem HCl 30 mg 06/28/18 22:00 06/28/18 21:12 Cardizem PO Not Given Q8H KHARI Emtricitabine/Tenofovir 1 tab 06/27/18 16:15 06/28/18 17:46 Truvada 200 Mg-300 Mg PO Not Given Q24H [facility] Protocol Guaifenesin 600 mg 06/26/18 18:00 06/28/18 17:45 Mucinex La PO Not Given BID [facility] Heparin Sodium (Porcine) 5,000 units 06/28/18 22:00 06/28/18 21:12 Heparin SC Not Given Q12 KHARI Cefepime HCl 1 gm/ Dextrose 50 mls @ 100 mls/hr 06/25/18 07:00 06/28/18 16:53 IVPB 100 mls/hr Q8H KHARI Administration Protocol Sodium Chloride 1,000 mls @ 75 mls/hr 06/28/18 12:33 06/28/18 14:00 Sodium Chloride 0.9% IV 75 mls/hr .[id number] KHARI Administration Trimethoprim/Sulfamethoxazole 250 mls @ 100 mls/hr 06/28/18 14:00 06/28/18 21:12 240 mg/ Dextrose IVPB 100 mls/hr Q6H KHARI Administration Protocol Methylprednisolone 40 mg 06/25/18 12:00 06/28/18 12:04 Solu-Medrol IVP 40 mg Q12H KHARI Administration Olanzapine 10 mg 06/28/18 18:00 06/28/18 17:46 Zyprexa PO Not Given QPM KHARI Pantoprazole Sodium 40 mg 06/27/18 11:30 06/28/18 09:40 Protonix Ec Tab PO 40 mg DAILY KHARI Administration Paroxetine HCl 10 mg 06/29/18 10:00 Paxil PO DAILY KHARI Ritonavir 100 mg 06/27/18 16:30 06/28/18 16:54 Norvir PO 100 mg BIDBS KHARI Administration Protocol Trazodone HCl 50 mg 06/28/18 22:00 06/28/18 21:12 Desyrel PO Not Given HS KHARI - Patient Studies Lab Studies: Microbiology Studies 06/24/18 20:00 Blood Culture - Preliminary Blood NO GROWTH AFTER 3 DAYS 06/24/18 22:30 Blood Culture - Preliminary Blood NO GROWTH AFTER 3 DAYS 06/25/18 21:26 Gram Stain - Final Sputum Induced Lab Studies 06/28/18 06/28/18 Range/Units 05:30 05:30 WBC 7.8 (4.8-10.8) K/uL RBC 3.49 L (3.80-5.20) Mil/uL Hgb 9.9 L (11.0-16.0) g/dL Hct 30.1 L (34.0-47.0) % MCV 86.2 (81.0-99.0) fL MCH 28.4 (27.0-31.0) pg MCHC 32.9 L (33.0-37.0) g/dL RDW 15.5 H (11.5-14.5) % Plt Count 239 (130-400) K/uL MPV 8.7 (7.2-11.7) fL Neut % (Auto) 88.5 H (50.0-75.0) % Lymph % (Auto) 6.0 L (20.0-40.0) % [place] % (Auto) 5.4 (0.0-10.0) % Eos % (Auto) 0.1 (0.0-4.0) % Baso % (Auto) 0.0 (0.0-2.0) % Neut # (Auto) 6.9 (1.8-7.0) K/uL Lymph # (Auto) 0.5 L (1.0-4.3) K/uL [place] # (Auto) 0.4 (0.0-0.8) K/uL Eos # (Auto) 0.0 (0.0-0.7) K/uL Baso # (Auto) 0.0 (0.0-0.2) K/uL Neutrophils % (Manual) 84 H (50-75) % Band Neutrophils % 2 (0-2) % Lymphocytes % (Manual) 7 L (20-40) % Monocytes % (Manual) 5 (0-10) % Eosinophils % (Manual) 1 (0-4) % Basophils % (Manual) 1 (0-2) % Platelet Estimate Normal (NORMAL) Giant Platelets Present Hypochromasia (manual) Slight Poikilocytosis (manual Slight Anisocytosis (manual) Slight Ovalocytes Slight Sodium 137 (132-148) mmol/L Potassium 4.7 (3.6-5.2) mmol/L Chloride 117 H (98-107) mmol/L Carbon Dioxide 17 L (22-30) mmol/L Anion Gap 8 L (10-20) BUN 22 H (7-17) mg/dL Creatinine 0.7 (0.7-1.2) mg/dL Est GFR ( Amer) > 60 Est GFR (Non-Af Amer) > 60 Random Glucose 114 H (65-105) mg/dL Calcium 8.1 L (8.6-10.4) mg/dl Phosphorus 2.3 L (2.5-4.5) mg/dL Magnesium 2.1 (1.6-2.3) mg/dL Total Bilirubin 0.2 (0.2-1.3) mg/dL AST 46 H D (14-36) U/L ALT 39 (9-52) U/L Alkaline Phosphatase 65 (38-126) U/L Total Protein 5.8 L (6.3-8.3) g/dL Albumin 2.3 L (3.5-5.0) g/dL Globulin 3.5 (2.2-3.9) gm/dL Albumin/Globulin Ratio 0.6 L (1.0-2.1) Laboratory Results - last 24 hr 06/28/18 06/28/18 05:30 05:30 WBC 7.8 RBC 3.49 L Hgb 9.9 L Hct 30.1 L MCV 86.2 MCH 28.4 MCHC 32.9 L RDW 15.5 H Plt Count 239 MPV 8.7 Neut % (Auto) 88.5 H Lymph % (Auto) 6.0 L [place] % (Auto) 5.4 Eos % (Auto) 0.1 Baso % (Auto) 0.0 Neut # (Auto) 6.9 Lymph # (Auto) 0.5 L [place] # (Auto) 0.4 Eos # (Auto) 0.0 Baso # (Auto) 0.0 Neutrophils % (Manual) 84 H Band Neutrophils % 2 Lymphocytes % (Manual) 7 L Monocytes % (Manual) 5 Eosinophils % (Manual) 1 Basophils % (Manual) 1 Platelet Estimate Normal Giant Platelets Present Hypochromasia (manual) Slight Poikilocytosis (manual Slight Anisocytosis (manual) Slight Ovalocytes Slight Sodium 137 Potassium 4.7 Chloride 117 H Carbon Dioxide 17 L Anion Gap 8 L BUN 22 H Creatinine 0.7 Est GFR ( Amer) > 60 Est GFR (Non-Af Amer) > 60 Random Glucose 114 H Calcium 8.1 L Phosphorus 2.3 L Magnesium 2.1 Total Bilirubin 0.2 AST 46 H D ALT 39 Alkaline Phosphatase 65 Total Protein 5.8 L Albumin 2.3 L Globulin 3.5 Albumin/Globulin Ratio 0.6 L Critical Care Progress Note - Nutrition Nutrition: Nutrition Category Date Time Status Regular Diet [DIET] Diets 06/26/18 Breakfast Active Attending/Attestation - Attestation I have personally seen and examined this patient.: Yes I have fully participated in the care of the patient.: Yes I have reviewed all pertinent clinical information: Yes Notes (Text): 06/28/18 21:23 The Patient was seen and examined at the bedside, Medical records reviewed, and management issues were discussed and formulated with the house staff. I have reviewed all the relevant clinical, laboratory, hemodynamic, radiographic data and medications Events reviewed Pain issues, skin care, head of the bed elevation, glycemic control were addressed. Agree with above resident's assessment and treatment plans of care as transcribed in Dr. Malik's note.
[2018-06-28] MEDS: Pantoprazole 40 mg EC Tab PO SCH (09:40)
[2018-06-28] MEDS: guaiFENesin 600 mg ER Tab PO SCH ×2 (09:40→17:45)
[2018-06-28] MEDS ORDERED: SULFAMETHOXAZOLE IVPB SCH (12:45)
[2018-06-28] MEDS ORDERED: TRIMETHOPRIM IVPB SCH (12:45)
[2018-06-28] MEDS ORDERED: DEXTROSE 5% IVPB SCH (12:45)
[2018-06-28] MEDS ORDERED: WATER IVPB SCH (12:45)
--- NOTE | 2018-06-28 12:57 | PQF ---
PROVIDER RESPONSE TEXT: Metabolic encephaopathy secondayr to underlying med conditions REVIEWER QUERY TEXT: Encephalopathy Type AMS is documented in the Medical Record. Please specify type Such as: -- Alcoholic -- Anoxic -- Due to medications or drugs (please specify) -- Hepatic failure (please specify if with or without coma) -- Hypertensive -- Metabolic -- Septic -- Toxic -- Wernicke?s -- Other, please specify The patient's Clinical Indicators include: ?57 year old female with PMHx of schizophrenia, HIV, and bipolar disorder presents to the ED BIBA sta tus post being found outside on the curb shivering. Patient arrived tachycardic and SVT?. Per Consult Note patient with diagnosis of Sepsis, PNA, HIV, Possible overdose of Opioids. AMS documented in the present admission. Please consider verify and document Encephalopathy with belo w scenarios, if agree. Query created by: Abhijeet Stevenson on 06/27/2018 12:02 PM Electronically signed by: Isiah RUIZ 06/28/2018 12:55 PM
--- NOTE | 2018-06-28 15:00 | CP.PCM.PN ---
Subjective - Date & Time of Evaluation Date of Evaluation: 06/28/18 Time of Evaluation: 08:00 - Subjective Subjective: afeb less SOB On IV Bactrim for PCP rx will need 21 days Bactrim IV / PO at therapeutic doses then prophylaxis HAART rx restarted Objective - Vital Signs/Intake and Output Vital Signs (last 24 hours): Temp Pulse Resp BP Pulse Ox 98 F 81 27 H 102/66 99 06/28/18 12:00 06/28/18 14:00 06/28/18 14:00 06/28/18 14:01 06/28/18 14:00 Intake and Output: 06/28/18 06/28/18 06:59 18:59 Intake Total 1475 1555 Output Total 1150 650 Balance 325 905 - Medications Medications: Current Medications Acetaminophen (Tylenol 325mg Tab) 975 mg PO ONCE PRN PRN Reason: Fever >100.4 F Last Admin: 06/24/18 22:28 Dose: 975 mg Acetylcysteine (Acetylcysteine 20%) 4 ml INH RQ6 KHARI Last Admin: 06/28/18 13:09 Dose: 4 ml Albuterol/Ipratropium (Duoneb 3 Mg/0.5 Mg (3 Ml) Ud) 3 ml INH RQ6 KHARI Last Admin: 06/28/18 13:09 Dose: 3 ml Azithromycin (Zithromax) 1,200 mg PO Q7D KHARI; Protocol Last Admin: 06/27/18 17:47 Dose: 1,200 mg Darunavir (Prezista) 600 mg PO BID KHARI; Protocol Last Admin: 06/28/18 09:42 Dose: 600 mg Emtricitabine/Tenofovir (Truvada 200 Mg-300 Mg) 1 tab PO Q24H KHARI; Protocol Last Admin: 06/27/18 17:47 Dose: 1 tab Guaifenesin (Mucinex La) 600 mg PO BID KHARI Last Admin: 06/28/18 09:40 Dose: 600 mg Cefepime HCl 1 gm/ Dextrose 50 mls @ 100 mls/hr IVPB Q8H K[facility]ARI; Protocol Last Admin: 06/28/18 06:45 Dose: 100 mls/hr Sodium Chloride (Sodium Chloride 0.9%) 1,000 mls @ 75 mls/hr IV .[id number] KHARI Last Admin: 06/28/18 14:00 Dose: 75 mls/hr Trimethoprim/Sulfamethoxazole (240 mg/ Dextrose) 250 mls @ 100 mls/hr IVPB Q6H [facility]; Protocol Last Admin: 06/28/18 14:01 Dose: 100 mls/hr Methylprednisolone (Solu-Medrol) 40 mg IVP Q12H [facility] Last Admin: 06/28/18 12:04 Dose: 40 mg Metoprolol Tartrate (Lopressor) 25 mg PO BID [facility] Last Admin: 06/28/18 09:40 Dose: 25 mg Olanzapine (Zyprexa) 10 mg PO QPM [facility] Pantoprazole Sodium (Protonix Ec Tab) 40 mg PO DAILY [facility] Last Admin: 06/28/18 09:40 Dose: 40 mg Paroxetine HCl (Paxil) 10 mg PO DAILY [facility]I Ritonavir (Norvir) 100 mg PO BIDBS [facility]; Protocol Last Admin: 06/28/18 09:40 Dose: 100 mg Trazodone HCl (Desyrel) 50 mg PO HS [facility] - Labs Labs: 06/28/18 05:30 06/28/18 05:30 PT 13.4 SECONDS (9.7-12.2) H 06/24/18 22:42 INR 1.2 06/24/18 22:42 APTT 29 SECONDS (21-34) 06/24/18 22:42 - Constitutional Appears: Non-toxic, Chronically Ill - Head Exam Head Exam: NORMOCEPHALIC - Eye Exam Eye Exam: absent: Scleral icterus - ENT Exam ENT Exam: Mucous Membranes Dry - Neck Exam Neck Exam: absent: Lymphadenopathy - Respiratory Exam Respiratory Exam: Decreased Breath Sounds - Cardiovascular Exam Cardiovascular Exam: REGULAR RHYTHM - GI/Abdominal Exam GI & Abdominal Exam: Distended - Rectal Exam Rectal Exam: Deferred - Exam Exam: NORMAL INSPECTION - Extremities Exam Extremities Exam: absent: Pedal Edema - Back Exam Back Exam: absent: CVA tenderness (L), CVA tenderness (R) - Neurological Exam Neurological Exam: Alert, Awake Assessment and Plan (1) Altered mental state Status: Acute (2) CHF (congestive heart failure) Status: Acute (3) Cocaine abuse Status: Acute (4) HIV (human immunodeficiency virus infection) Status: Acute (5) Pneumonia Status: Acute (6) SVT (supraventricular tachycardia) Status: Acute (7) Schizophrenia Status: Acute - Assessment and Plan (Free Text) Assessment: On IV Bactrim for PCP rx will need 21 days Bactrim IV / PO at therapeutic doses then prophylaxis HAART rx restarted
--- NOTE | 2018-06-28 17:11 | CARD ---
APPROVED REPORT Date of service: 06/24/2018 EKG Measurement Heart [id number] <Conclusion> Supraventricular tachycardia Marked ST abnormality, possible inferior subendocardial injury Abnormal ECG
[2018-06-28] MEDS: Emtricitabine-Tenofovir 200 mg-300 mg Tab PO SCH (17:46)
--- NOTE | 2018-06-28 21:03 | CP.PCM.PN ---
Subjective - Date & Time of Evaluation Date of Evaluation: 06/28/18 Time of Evaluation: 11:30 - Subjective Subjective: clinically same Objective - Vital Signs/Intake and Output Vital Signs (last 24 hours): Temp Pulse Resp BP Pulse Ox 97.7 F 63 22 100/61 92 L 06/28/18 16:00 06/28/18 20:01 06/28/18 20:06 06/28/18 20:01 06/28/18 20:01 Intake and Output: 06/28/18 06/29/18 18:59 06:59 Intake Total 2075 445 Output Total 650 200 Balance 1425 245 - Medications Medications: Current Medications Acetaminophen (Tylenol 325mg Tab) 975 mg PO ONCE PRN PRN Reason: Fever >100.4 F Last Admin: 06/24/18 22:28 Dose: 975 mg Acetylcysteine (Acetylcysteine 20%) 4 ml INH RQ6 KHARI Last Admin: 06/28/18 20:06 Dose: 4 ml Albuterol/Ipratropium (Duoneb 3 Mg/0.5 Mg (3 Ml) Ud) 3 ml INH RQ6 KHARI Last Admin: 06/28/18 20:06 Dose: 3 ml Azithromycin (Zithromax) 1,200 mg PO Q7D [facility]; Protocol Last Admin: 06/27/18 17:47 Dose: 1,200 mg Darunavir (Prezista) 600 mg PO BID [facility]; Protocol Last Admin: 06/28/18 17:45 Dose: Not Given Diltiazem HCl (Cardizem) 30 mg PO Q8H [facility]I Emtricitabine/Tenofovir (Truvada 200 Mg-300 Mg) 1 tab PO Q24H [facility]; Protocol Last Admin: 06/28/18 17:46 Dose: Not Given Guaifenesin (Mucinex La) 600 mg PO BID [facility] Last Admin: 06/28/18 17:45 Dose: Not Given Heparin Sodium (Porcine) (Heparin) 5,000 units SC Q12 [facility]I Cefepime HCl 1 gm/ Dextrose 50 mls @ 100 mls/hr IVPB Q8H [facility]; Protocol Last Admin: 06/28/18 16:53 Dose: 100 mls/hr Sodium Chloride (Sodium Chloride 0.9%) 1,000 mls @ 75 mls/hr IV .[id number] [facility] Last Admin: 06/28/18 14:00 Dose: 75 mls/hr Trimethoprim/Sulfamethoxazole (240 mg/ Dextrose) 250 mls @ 100 mls/hr IVPB Q6H [facility]; Protocol Last Admin: 06/28/18 14:01 Dose: 100 mls/hr Methylprednisolone (Solu-Medrol) 40 mg IVP Q12H [facility] Last Admin: 06/28/18 12:04 Dose: 40 mg Olanzapine (Zyprexa) 10 mg PO QPM [facility]I Last Admin: 06/28/18 17:46 Dose: Not Given Pantoprazole Sodium (Protonix Ec Tab) 40 mg PO DAILY [facility]I Last Admin: 06/28/18 09:40 Dose: 40 mg Paroxetine HCl (Paxil) 10 mg PO DAILY [facility] Ritonavir (Norvir) 100 mg PO BIDBS [facility]; Protocol Last Admin: 06/28/18 16:54 Dose: 100 mg Trazodone HCl (Desyrel) 50 mg PO HS [facility] - Labs Labs: 06/28/18 05:30 06/28/18 05:30 PT 13.4 SECONDS (9.7-12.2) H 06/24/18 22:42 INR 1.2 06/24/18 22:42 APTT 29 SECONDS (21-34) 06/24/18 22:42
[2018-06-29] MEDS: Albuterol-Ipratrop 3 mg / 0.5 (3 ml) UD INH SCH ×4 (01:18→20:26)
[2018-06-29] MEDS: Acetylcysteine 20% Inhal Soln (4ml) INH SCH ×4 (01:18→20:26)
[2018-06-29] MEDS: Sodium Chloride 0.9% 1,000 ML IV SCH (02:34)
[2018-06-29] MEDS: Sulfamethoxazole/Trimethoprim 240 MG in Dextrose 5% In Water 250 ML IVPB SCH ×4 (02:34→20:45)
[2018-06-29 06:20] LABS: BASO % 0.3 % (0.0-2.0); HEMOGLOBIN 10.8 g/dL (11.0-16.0); LYMPH # 0.6 K/uL (1.0-4.3); LYMPH % 8.9 % (20.0-40.0); MEAN CELL VOLUME 85.4 fL (81.0-99.0); MEAN CORPUSCULAR HEMOGLOBIN 28.1 pg (27.0-31.0); MEAN CORPUSCULAR HGB CONC 32.9 g/dL (33.0-37.0); MEAN PLATELET VOLUME 8.4 fL (7.2-11.7); MONO # 0.3 K/uL (0.0-0.8); MONO % 3.6 % (0.0-10.0); NEUT # 6.3 K/uL (1.8-7.0); NEUT % 87.2 % (50.0-75.0); NRBC % 0.1 % (0.0-2.0); PLATELET COUNT 266 K/uL (130-400); RBC 3.84 Mil/uL (3.80-5.20); RED CELL DISTRIBUTION WIDTH 15.5 % (11.5-14.5); WHITE BLOOD COUNT 7.2 K/uL (4.8-10.8)
[2018-06-29 06:41] LABS: ALB/GLOB RATIO 0.7 (1.0-2.1); ALBUMIN 2.4 g/dL (3.5-5.0); ALT/SGPT 42 U/L (9-52); AST/SGOT 37 U/L (14-36); BLOOD UREA NITROGEN 18 mg/dL (7-17); CALCIUM 8.2 mg/dl (8.6-10.4); GFR NON-AFRICAN AMERICAN > 60
--- NOTE | 2018-06-29 08:17 | CP.CCUPN ---
CCU Subjective - Physician Review Events Since Last Encounter (Free Text): 06/29/18 08:16 Patient remains on high flow O2. No acute events. Subjective (Free Text): 06/29/18 08:16 Patient was seen and examined this morning. Critical Care Time Spent (in minutes): 35 CCU Objective - Vital Signs / Intake & Output Vital Signs (Last 4 hours): Vital Signs Pulse Resp BP Pulse Ox 06/29/18 06:01 56 L 36 H 94/63 L 06/29/18 05:22 62 28 H 97/60 L 96 Intake and Output (Last 8hrs): Intake & Output 06/28/18 06/29/18 06/29/18 22:59 06:59 14:59 Intake Total 1202.5 725.0 Output Total 200 1000 Balance 1002.5 -275.0 Weight 131 lb 13.383 oz Intake: Intake, IV Amount 562.5 625.0 Left Forearm 37.5 625.0 Right Medial Port 525 Internal Jugular Oral 640 100 Output: Urine 200 1000 Urine, Voided 200 1000 - Physical Exam Head: Positive for: Atraumatic, Normocephalic Pupils: Positive for: PERRL Extroacular Muscles: Positive for: EOMI Conjunctiva: Positive for: Normal Mouth: Positive for: Moist Mucous Membranes, Normal Tounge Pharnyx: Negative for: Uvular Deviation Respiratory/Chest: Positive for: Decreased Breath Sounds (bilateral upper lobes). Negative for: Wheezes, Rales, Rhonchi Cardiovascular: Positive for: Regular Rate and Rhythm, Normal S1, S2 Abdomen: Negative for: Tenderness, Distention Upper Extremity: Positive for: Normal Inspection. Negative for: Edema Lower Extremity: Positive for: Normal Inspection. Negative for: Edema Neurological: Positive for: CN II-XII Intact Skin: Positive for: Warm, Diaphoretic Psychiatric: Positive for: Lethargic - Medications Active Medications: Active Medications Generic Name Dose Route Start Last Admin Trade Name Freq PRN Reason Stop Dose Admin Acetaminophen 975 mg 06/24/18 22:16 06/24/18 22:28 Tylenol 325mg Tab PO 975 mg ONCE PRN Administration Fever >100.4 F Acetylcysteine 4 ml 06/26/18 20:00 06/29/18 07:31 Acetylcysteine 20% INH 4 ml RQ6 KHARI Administration Albuterol/Ipratropium 3 ml 06/25/18 14:00 06/29/18 07:31 Duoneb 3 Mg/0.5 Mg (3 Ml) Ud INH 3 ml RQ6 KHARI Administration Azithromycin 1,200 mg 06/27/18 16:15 06/27/18 17:47 Zithromax PO 1,200 mg Q7D K[facility]ARI Administration Protocol Darunavir 600 mg 06/27/18 18:00 06/28/18 17:45 Prezista PO Not Given BID [facility] Protocol Diltiazem HCl 30 mg 06/28/18 22:00 06/29/18 05:42 Cardizem PO 30 mg Q8H KHARI Administration Emtricitabine/Tenofovir 1 tab 06/27/18 16:15 06/28/18 17:46 Truvada 200 Mg-300 Mg PO Not Given Q24H [facility] Protocol Guaifenesin 600 mg 06/26/18 18:00 06/28/18 17:45 Mucinex La PO Not Given BID K[facility]I Heparin Sodium (Porcine) 5,000 units 06/28/18 22:00 06/28/18 22:26 Heparin SC 5,000 units Q12 K[facility]ARI Administration Cefepime HCl 1 gm/ Dextrose 50 mls @ 100 mls/hr 06/25/18 07:00 06/29/18 06:15 IVPB 100 mls/hr Q8H KHARI Administration Protocol Sodium Chloride 1,000 mls @ 75 mls/hr 06/28/18 12:33 06/29/18 02:34 Sodium Chloride 0.9% IV Not Given .[id number] KHARI Trimethoprim/Sulfamethoxazole 250 mls @ 100 mls/hr 06/28/18 14:00 06/29/18 02:34 240 mg/ Dextrose IVPB 100 mls/hr Q6H KHARI Administration Protocol Methylprednisolone 40 mg 06/25/18 12:00 06/28/18 23:53 Solu-Medrol IVP 40 mg Q12H K[facility]ARI Administration Olanzapine 10 mg 06/28/18 18:00 06/28/18 17:46 Zyprexa PO Not Given QPM KHARI Pantoprazole Sodium 40 mg 06/27/18 11:30 06/28/18 09:40 Protonix Ec Tab PO 40 mg DAILY K[facility]I Administration Paroxetine HCl 10 mg 06/29/18 10:00 Paxil PO DAILY KHARI Ritonavir 100 mg 06/27/18 16:30 06/28/18 16:54 Norvir PO 100 mg BIDBS KHARI Administration Protocol Trazodone HCl 50 mg 06/28/18 22:00 06/28/18 22:26 Desyrel PO 50 mg HS KHARI Administration - Patient Studies Lab Studies: Microbiology Studies 06/25/18 21:26 Gram Stain - Final Sputum Induced Sputum Culture - Final Yeast Species 06/24/18 20:00 Blood Culture - Preliminary Blood NO GROWTH AFTER 4 DAYS 06/24/18 22:30 Blood Culture - Preliminary Blood NO GROWTH AFTER 4 DAYS Lab Studies 06/29/18 06/29/18 06/28/18 Range/Units 06:12 06:12 05:30 WBC 7.2 (4.8-10.8) K/uL RBC 3.84 (3.80-5.20) Mil/uL Hgb 10.8 L (11.0-16.0) g/dL Hct 32.8 L (34.0-47.0) % MCV 85.4 (81.0-99.0) fL MCH 28.1 (27.0-31.0) pg MCHC 32.9 L (33.0-37.0) g/dL RDW 15.5 H (11.5-14.5) % Plt Count 266 (130-400) K/uL MPV 8.4 (7.2-11.7) fL Neut % (Auto) 87.2 H (50.0-75.0) % Lymph % (Auto) 8.9 L (20.0-40.0) % [place] % (Auto) 3.6 (0.0-10.0) % Eos % (Auto) 0.0 (0.0-4.0) % Baso % (Auto) 0.3 (0.0-2.0) % Neut # (Auto) 6.3 (1.8-7.0) K/uL Lymph # (Auto) 0.6 L (1.0-4.3) K/uL [place] # (Auto) 0.3 (0.0-0.8) K/uL Eos # (Auto) 0.0 (0.0-0.7) K/uL Baso # (Auto) 0.0 (0.0-0.2) K/uL Neutrophils % (Manual) 84 H (50-75) % Band Neutrophils % 2 (0-2) % Lymphocytes % (Manual) 7 L (20-40) % Monocytes % (Manual) 5 (0-10) % Eosinophils % (Manual) 1 (0-4) % Basophils % (Manual) 1 (0-2) % Platelet Estimate Normal (NORMAL) Giant Platelets Present Hypochromasia (manual) Slight Poikilocytosis (manual Slight Anisocytosis (manual) Slight Ovalocytes Slight Sodium 135 (132-148) mmol/L Potassium 4.4 (3.6-5.2) mmol/L Chloride 113 H (98-107) mmol/L Carbon Dioxide 16 L (22-30) mmol/L Anion Gap 10 (10-20) BUN 18 H (7-17) mg/dL Creatinine 0.8 (0.7-1.2) mg/dL Est GFR ( Amer) > 60 Est GFR (Non-Af Amer) > 60 Random Glucose 136 H (65-105) mg/dL Calcium 8.2 L (8.6-10.4) mg/dl Phosphorus 2.6 (2.5-4.5) mg/dL Magnesium 2.1 (1.6-2.3) mg/dL Total Bilirubin 0.2 (0.2-1.3) mg/dL AST 37 H (14-36) U/L ALT 42 (9-52) U/L Alkaline Phosphatase 73 (38-126) U/L Total Protein 5.9 L (6.3-8.3) g/dL Albumin 2.4 L (3.5-5.0) g/dL Globulin 3.5 (2.2-3.9) gm/dL Albumin/Globulin Ratio 0.7 L (1.0-2.1) TSH 3rd Generation 0.34 L (0.46-4.68) mIU/L Laboratory Results - last 24 hr 06/28/18 06/29/18 06/29/18 05:30 06:12 06:12 WBC 7.2 RBC 3.84 Hgb 10.8 L Hct 32.8 L MCV 85.4 MCH 28.1 MCHC 32.9 L RDW 15.5 H Plt Count 266 MPV 8.4 Neut % (Auto) 87.2 H Lymph % (Auto) 8.9 L [place] % (Auto) 3.6 Eos % (Auto) 0.0 Baso % (Auto) 0.3 Neut # (Auto) 6.3 Lymph # (Auto) 0.6 L [place] # (Auto) 0.3 Eos # (Auto) 0.0 Baso # (Auto) 0.0 Neutrophils % (Manual) 84 H Band Neutrophils % 2 Lymphocytes % (Manual) 7 L Monocytes % (Manual) 5 Eosinophils % (Manual) 1 Basophils % (Manual) 1 Platelet Estimate Normal Giant Platelets Present Hypochromasia (manual) Slight Poikilocytosis (manual Slight Anisocytosis (manual) Slight Ovalocytes Slight Sodium 135 Potassium 4.4 Chloride 113 H Carbon Dioxide 16 L Anion Gap 10 BUN 18 H Creatinine 0.8 Est GFR ( Amer) > 60 Est GFR (Non-Af Amer) > 60 Random Glucose 136 H Calcium 8.2 L Phosphorus 2.6 Magnesium 2.1 Total Bilirubin 0.2 AST 37 H ALT 42 Alkaline Phosphatase 73 Total Protein 5.9 L Albumin 2.4 L Globulin 3.5 Albumin/Globulin Ratio 0.7 L TSH 3rd Generation 0.34 L Critical Care Progress Note - Nutrition Nutrition: Nutrition Category Date Time Status Regular Diet [DIET] Diets 06/26/18 Breakfast Active Assessment/Plan - Assessment and Plan (Free Text) Assessment: Patient is a 57 yo female with a history of AIDS, schizophrenia, and cocaine abuse who presented after being found in a store with SOB and elevated HR. Code sepsis was called for fever, hypotension, and AMS. She was found to have multifocal PNA. She required Levophed drip and PRBC transfusion. She is now off pressors. Has R PICC for IV abx. Plan: Neuro: AMS- suspect 2/2 sepsis and/or medication noncompliance - AMS on presentation- improving, still lethargic - Monitor mental status CV: Hypotension - Off pressors - Maintain MAP >60 - Cardiology consulted (Jose Alberto) - B/l LE Dopplers: no DVT Pulm: Multilobar PNA- suspect PCP - CXR: prominent patchy b/l airspace opacities, small R pleural effusion, cardiomegaly - Bactrim 240 mg IV Q6H- started 06/25 (will need 21 days then ppx) - Cefepime 1 g IV Q8H- started 06/25 - Duonebs Q6H - Solu-medrol 40 mg IV Q12H - Maintain spO2 >92% - Acetylcysteine Q6H - Guaifenesin 600mg PO BID - Chest physiotherapy - Incentive spirometry - Maintain spO2>92%- high flow O2 - Consider pulm consult for bronchoscopy GI: - Regular diet : OSVALDO- resolved - Monitor I&Os - Consistently positive- last 24 hrs +905 mL - Replace electrolytes PRN - NS @ 75 mL/hr Endo: - Maintain euglycemia Heme: Anemia - 1 u PRBC (Hgb 8.5->11.4) - Hgb stable at 9.9 - Monitor H&H ID: Septic shock - Temp initially 103, then 94.9, now resolved to 97s - Tylenol 650 mg PO Q6H PRN - Blood Cx no growth >3 days - MRSA screen negative - Bactrim 240 mg IV Q6H- started 06/25 (will need 21 days then ppx) - Cefepime 1 g IV Q8H- started 06/25 - Discontinue vancomycin AIDS - CD4<20 - Truvada 200 mg/300 mg PO daily - Ritanavir 100 mg PO BID - Darunavir 600 mg PO BID - Azithromycin 1200 mg PO QWK - ID consulted (Robi) Psych: Substance use disorder- cocaine, tobacco - UDS positive for cocaine Schizophrenia - Reported h/o schizophrenia and medication noncompliance - Confirmed most recent meds with [facility] - Paxil 40 mg PO daily- will start 10 mg - Olanzapine 20 mg PO QHS- will start 10 mg - Trazodone 100 mg PO QHS- will start 50 mg PPx: VTE: heparin 5000 units SC Q12H GI: PTX 40 mg PO daily Case discussed with attending, Dr. Shah. PGY-1 Holly Malik D.O.
[2018-06-29 08:41] LABS: ANISOCYTOSIS SLIGHT; LYMPHOCYTE 9 % (20-40); METAMYELOCYTE 1 % (0-0); MONOCYTE 1 % (0-10); MYELOCYTE 1 % (0-0); NEUTROPHIL 88 % (50-75); NUCLEATED RED BLOOD CELL 1 % (0-0); PLATELET ESTIMATE NORMAL (NORMAL); POIKILOCYTOSIS SLIGHT; TOTAL CELLS COUNTED 100
[2018-06-29 08:42] LABS: HYPOCHROMIC SLIGHT
--- NOTE | 2018-06-29 08:55 | CP.PCM.CON ---
History of Present Illness - History of Present Illness History of Present Illness: Reason For Consultation: SVT 57 F with h/o schizophrenia, h/o svt, HIV/AIDS, non compliance with the treatment, tobacco, cocaine abuse, as per information available in the chart as patient was sob and had difficulty in speaking due to dry mouth, she was found in grocery store, sob and EMS called. In ER patient's HR in mid 200s, she was treated with adenosine and initially responded to sinus rhythm but then reverted back and would not respond. She was found to be dehydrated, hypotensive, b/l PNA on the CXR, increased RR, OSVALDO, urine showing cocaine +. PMH as above Family history not contributory Allergies reviewed Meds unknown at time of exam Social tobacco abuse, cocaine abuse Review of Systems - Review of Systems All systems: reviewed and no additional remarkable complaints except (HPI) Physical Exam - Additional Findings Additional findings: * HEENT NAILA, no thrush * Neck Supple * Chest b/l some rattling noise in lower lobes, no wheezing, RR in 40's * CVS sinus vs MAT * PA soft, nt bs present * Ext no edema * Skin dry, reduced turgor * COLORS CUSTODIAN awake oriented x3 no fnd * Assessment & Plan - Assessment and Plan (Free Text) Assessment: * Multilobar pna * Sepsis * HIV/AIDS, noncompliance * SVT, MAT * OSVALDO * Dehydration * Hypotension * Cocaine abuse * Schizopherenia * Immunochrompomised. Plan: * Cefepime, vanco, bactrim * IV steroid * prn, betablocker to control rhythm * CD4 panel * IVF aggressive * GI/DVT prophylaxis * Patient on B blockers Due to Cacaine history will change it to Cardizem Past Patient History - Infectious Disease Hx of Infectious Diseases: None - Tetanus Immunizations Tetanus Immunization: Unknown - Past Medical History & Family History Past Medical History?: Yes - Past Social History Smoking Status: Heavy Smoker > 10 Cigarettes Daily Drugs: Cocaine - CARDIAC Hx Hypertension: No - PULMONARY Hx Respiratory Disorders: No Hx Tuberculosis: No - NEUROLOGICAL Hx Seizures: No - HEENT Hx HEENT Problems: No - RENAL Hx Chronic Kidney Disease: No - ENDOCRINE/METABOLIC Hx Endocrine Disorders: No - HEMATOLOGICAL/ONCOLOGICAL Hx Human Immunodeficiency Virus (HIV): Yes - INTEGUMENTARY Hx Dermatological Problems: No - MUSCULOSKELETAL/RHEUMATOLOGICAL Hx Musculoskeletal Disorders: No Hx Falls: No - GASTROINTESTINAL Hx Gastrointestinal Disorders: No - GENITOURINARY/GYNECOLOGICAL Hx Sexually Transmitted Disorders: No - PSYCHIATRIC Hx Anxiety: Yes Hx Bipolar Disorder: Yes Hx Paranoia: Yes Hx Schizophrenia: Yes Hx Substance Use: Yes (cocaine) - SURGICAL HISTORY Hx Amputation: Yes (R [place]) - ANESTHESIA Hx Anesthesia: Yes Hx Anesthesia Reactions: No Meds Allergies/Adverse Reactions: Allergies Allergy/AdvReac Type Severity Reaction Status Date / Time ibuprofen Allergy ANAPHYLAXIS Verified 10/17/17 19:41 - Medications Medications: Current Medications Acetaminophen (Tylenol 325mg Tab) 975 mg PO ONCE PRN PRN Reason: Fever >100.4 F Last Admin: 06/24/18 22:28 Dose: 975 mg Acetylcysteine (Acetylcysteine 20%) 4 ml INH RQ6 KHARI Last Admin: 06/29/18 07:31 Dose: 4 ml Albuterol/Ipratropium (Duoneb 3 Mg/0.5 Mg (3 Ml) Ud) 3 ml INH RQ6 KHARI Last Admin: 06/29/18 07:31 Dose: 3 ml Azithromycin (Zithromax) 1,200 mg PO Q7D [facility]; Protocol Last Admin: 06/27/18 17:47 Dose: 1,200 mg Darunavir (Prezista) 600 mg PO BID [facility]; Protocol Last Admin: 06/28/18 17:45 Dose: Not Given Diltiazem HCl (Cardizem) 30 mg PO Q8H [facility]I Last Admin: 06/29/18 05:42 Dose: 30 mg Emtricitabine/Tenofovir (Truvada 200 Mg-300 Mg) 1 tab PO Q24H [facility]; Protocol Last Admin: 06/28/18 17:46 Dose: Not Given Guaifenesin (Mucinex La) 600 mg PO BID [facility] Last Admin: 06/28/18 17:45 Dose: Not Given Heparin Sodium (Porcine) (Heparin) 5,000 units SC Q12 K[facility]ARI Last Admin: 06/28/18 22:26 Dose: 5,000 units Cefepime HCl 1 gm/ Dextrose 50 mls @ 100 mls/hr IVPB Q8H [facility]; Protocol Last Admin: 06/29/18 06:15 Dose: 100 mls/hr Trimethoprim/Sulfamethoxazole (240 mg/ Dextrose) 250 mls @ 100 mls/hr IVPB Q6H [facility]; Protocol Last Admin: 06/29/18 08:35 Dose: 100 mls/hr Methylprednisolone (Solu-Medrol) 40 mg IVP Q12H [facility]I Last Admin: 06/28/18 23:53 Dose: 40 mg Olanzapine (Zyprexa) 10 mg PO QPM [facility]I Last Admin: 06/28/18 17:46 Dose: Not Given Pantoprazole Sodium (Protonix Ec Tab) 40 mg PO DAILY [facility]I Last Admin: 06/28/18 09:40 Dose: 40 mg Paroxetine HCl (Paxil) 10 mg PO DAILY [facility] Ritonavir (Norvir) 100 mg PO BIDBS [facility]I; Protocol Last Admin: 06/29/18 08:35 Dose: 100 mg Trazodone HCl (Desyrel) 50 mg PO HS [facility] Last Admin: 06/28/18 22:26 Dose: 50 mg Results - Vital Signs Recent Vital Signs: Last Vital Signs Temp 98 F 06/29/18 04:00 Pulse 56 L 06/29/18 06:01 Resp 36 H 06/29/18 06:01 BP 94/63 L 06/29/18 06:01 Pulse Ox 96 06/29/18 05:22 - Labs Result Diagrams: 06/29/18 06:12 06/29/18 06:12 Labs: Laboratory Results - last 24 hr 06/29/18 06/29/18 06:12 06:12 WBC 7.2 RBC 3.84 Hgb 10.8 L Hct 32.8 L MCV 85.4 MCH 28.1 MCHC 32.9 L RDW 15.5 H Plt Count 266 MPV 8.4 Neut % (Auto) 87.2 H Lymph % (Auto) 8.9 L [place] % (Auto) 3.6 Eos % (Auto) 0.0 Baso % (Auto) 0.3 Neut # (Auto) 6.3 Lymph # (Auto) 0.6 L [place] # (Auto) 0.3 Eos # (Auto) 0.0 Baso # (Auto) 0.0 Neutrophils % (Manual) 88 H Lymphocytes % (Manual) 9 L Monocytes % (Manual) 1 Metamyelocytes % 1 H Myelocytes % 1 H Nucleated RBC % 1 H Platelet Estimate Normal Hypochromasia (manual) Slight Poikilocytosis (manual Slight Anisocytosis (manual) Slight Sodium 135 Potassium 4.4 Chloride 113 H Carbon Dioxide 16 L Anion Gap 10 BUN 18 H Creatinine 0.8 Est GFR ( Amer) > 60 Est GFR (Non-Af Amer) > 60 Random Glucose 136 H Calcium 8.2 L Phosphorus 2.6 Magnesium 2.1 Total Bilirubin 0.2 AST 37 H ALT 42 Alkaline Phosphatase 73 Total Protein 5.9 L Albumin 2.4 L Globulin 3.5 Albumin/Globulin Ratio 0.7 L TSH 3rd Generation 0.34 L
[2018-06-29] MEDS: Pantoprazole 40 mg EC Tab PO SCH (10:02)
--- NOTE | 2018-06-29 10:25 | RAD ---
Date of service: 06/29/2018 HISTORY: PNA COMPARISON: No prior. FINDINGS: In situ right-sided PICC line, the distal aspect of which extends superiorly overlying the right aspect of the neck presumably within the right jugular vein.. This should be repositioned. Previously noted presumed right IJ central line is no longer visible. LUNGS: Mild diffuse infiltrates with more confluent opacity seen in the lower lung fine. Rule out pulmonary venous congestion and/or pneumonia.. Bilateral effusions right greater than left. PLEURA: No significant pleural effusion identified, no pneumothorax apparent. CARDIOVASCULAR: No aortic atherosclerotic calcification present. Normal cardiac size. No pulmonary vascular congestion. OSSEOUS STRUCTURES: No significant abnormalities. VISUALIZED UPPER ABDOMEN: Normal. OTHER FINDINGS: None. IMPRESSION: In situ right-sided PICC line, the distal aspect of which now extends superiorly overlying the right aspect of the neck presumably within the right jugular vein.. This should be repositioned. Previously noted right IJ central line is no longer visible. Mild diffuse infiltrates with more confluent opacity seen in the lower lung fine. Rule out pulmonary venous congestion and/or pneumonia.. Bilateral effusions right greater than left. These findings were discussed with Dr. Shah at approximately 10:15 a.m. with written down and read back verification.
[2018-06-29] MEDS: guaiFENesin 600 mg ER Tab PO SCH (10:56)
[2018-06-29 12:15] LABS: ARTERIAL BLOOD GAS HCO3 20.7 mmol/L (21-28); ARTERIAL BLOOD GAS O2 SAT 95.1 % (95-98); ARTERIAL BLOOD GAS PCO2 20 mm/Hg (35-45); ARTERIAL BLOOD GAS PO2 68 mm/Hg (80-100); ARTERIAL BLOOD GAS TCO2 16.2 mmol/L (22-28)
--- NOTE | 2018-06-29 13:00 | CP.PCM.CON ---
History of Present Illness - History of Present Illness History of Present Illness: Patient is a 57-year-old female with PMHx of AIDS, schizophrenia, and cocaine use who presented with SOB and elevated HR. Code sepsis was called for fever, hypotension, and AMS. Patient was found to have multifocal PNA. Patient has R P ICC for IV antibiotics. Patient required Levophed drip and PRBC transfusion. Patient remains on high flow O2 to maintain spO2>92%. Pulmonology was consulted for possible bronchoscopy. Patient afebrile and in no acute distress during exam. CXR 06/29 - In situ right-sided PICC line, the distal aspect of which now extends superiorly overlying the right aspect of the neck presumably within the right jugular vein. This should be repositioned. Previously noted right IJ central line is no longer visible. Mild diffuse infiltrates with more confluent opacity seen in the lower lung fine. Rule out pulmonary venous congestion and/or pneumonia. Bilateral effusions right greater than left. PMHx: AIDS, schizophrenia, cocaine use disorder PSHx: unknown Allergies: ibuprofen Social Hx: tobacco and cocaine user Review of Systems - Review of Systems All systems: reviewed and no additional remarkable complaints except (shortness of breath) Past Patient History - Infectious Disease Hx of Infectious Diseases: None - Tetanus Immunizations Tetanus Immunization: Unknown - Past Medical History & Family History Past Medical History?: Yes - Past Social History Smoking Status: Heavy Smoker > 10 Cigarettes Daily Drugs: Cocaine - CARDIAC Hx Hypertension: No - PULMONARY Hx Respiratory Disorders: No Hx Tuberculosis: No - NEUROLOGICAL Hx Seizures: No - HEENT Hx HEENT Problems: No - RENAL Hx Chronic Kidney Disease: No - ENDOCRINE/METABOLIC Hx Endocrine Disorders: No - HEMATOLOGICAL/ONCOLOGICAL Hx Human Immunodeficiency Virus (HIV): Yes - INTEGUMENTARY Hx Dermatological Problems: No - MUSCULOSKELETAL/RHEUMATOLOGICAL Hx Musculoskeletal Disorders: No Hx Falls: No - GASTROINTESTINAL Hx Gastrointestinal Disorders: No - GENITOURINARY/GYNECOLOGICAL Hx Sexually Transmitted Disorders: No - PSYCHIATRIC Hx Anxiety: Yes Hx Bipolar Disorder: Yes Hx Paranoia: Yes Hx Schizophrenia: Yes Hx Substance Use: Yes (cocaine) - SURGICAL HISTORY Hx Amputation: Yes (R Big Toe) - ANESTHESIA Hx Anesthesia: Yes Hx Anesthesia Reactions: No Meds Allergies/Adverse Reactions: Allergies Allergy/AdvReac Type Severity Reaction Status Date / Time ibuprofen Allergy ANAPHYLAXIS Verified 10/17/17 19:41 - Medications Medications: Current Medications Acetaminophen (Tylenol 325mg Tab) 975 mg PO ONCE PRN PRN Reason: Fever >100.4 F Last Admin: 06/24/18 22:28 Dose: 975 mg Acetylcysteine (Acetylcysteine 20%) 4 ml INH RQ6 [facility] Last Admin: 06/29/18 07:31 Dose: 4 ml Albuterol/Ipratropium (Duoneb 3 Mg/0.5 Mg (3 Ml) Ud) 3 ml INH RQ6 [facility] Last Admin: 06/29/18 07:31 Dose: 3 ml Azithromycin (Zithromax) 1,200 mg PO Q7D [facility]; Protocol Last Admin: 06/27/18 17:47 Dose: 1,200 mg Darunavir (Prezista) 600 mg PO BID [facility]; Protocol Last Admin: 06/29/18 10:02 Dose: 600 mg Diltiazem HCl (Cardizem) 30 mg PO Q8H [facility] Last Admin: 06/29/18 05:42 Dose: 30 mg Emtricitabine/Tenofovir (Truvada 200 Mg-300 Mg) 1 tab PO Q24H [facility]; Protocol Last Admin: 06/28/18 17:46 Dose: Not Given Guaifenesin (Mucinex La) 600 mg PO BID [facility] Last Admin: 06/29/18 10:56 Dose: 600 mg Heparin Sodium (Porcine) (Heparin) 5,000 units SC Q12 [facility] Last Admin: 06/29/18 10:01 Dose: 5,000 units Cefepime HCl 1 gm/ Dextrose 50 mls @ 100 mls/hr IVPB Q8H [facility]; Protocol Last Admin: 06/29/18 06:15 Dose: 100 mls/hr Trimethoprim/Sulfamethoxazole (240 mg/ Dextrose) 250 mls @ 100 mls/hr IVPB Q6H [facility]; Protocol Last Admin: 06/29/18 08:35 Dose: 100 mls/hr Methylprednisolone (Solu-Medrol) 40 mg IVP Q12H [facility] Last Admin: 06/28/18 23:53 Dose: 40 mg Olanzapine (Zyprexa) 10 mg PO QPM [facility] Last Admin: 06/28/18 17:46 Dose: Not Given Pantoprazole Sodium (Protonix Ec Tab) 40 mg PO DAILY COUNT INCLUDES [facility] Last Admin: 06/29/18 10:02 Dose: 40 mg Paroxetine HCl (Paxil) 10 mg PO DAILY [facility] Last Admin: 06/29/18 10:02 Dose: 10 mg Ritonavir (Norvir) 100 mg PO BIDBS [facility]; Protocol Last Admin: 06/29/18 08:35 Dose: 100 mg Trazodone HCl (Desyrel) 50 mg PO HS COUNT INCLUDES [facility] Last Admin: 06/28/18 22:26 Dose: 50 mg Physical Exam - Head Exam Head Exam: ATRAUMATIC, NORMOCEPHALIC - ENT Exam ENT Exam: Mucous Membranes Moist - Neck Exam Neck exam: Positive for: Normal Inspection - Respiratory Exam Respiratory Exam: Rales - Cardiovascular Exam Cardiovascular Exam: REGULAR RHYTHM Results - Vital Signs Recent Vital Signs: Last Vital Signs Temp 97.5 F L 06/29/18 08:00 Pulse 60 06/29/18 12:01 Resp 29 H 06/29/18 12:01 BP 92/51 L 06/29/18 12:01 Pulse Ox 96 06/29/18 12:01 - Labs Result Diagrams: 06/29/18 06:12 06/29/18 06:12 Labs: Laboratory Results - last 24 hr 06/29/18 06/29/18 06/29/18 06:12 06:12 12:12 WBC 7.2 RBC 3.84 Hgb 10.8 L Hct 32.8 L MCV 85.4 MCH 28.1 MCHC 32.9 L RDW 15.5 H Plt Count 266 MPV 8.4 Neut % (Auto) 87.2 H Lymph % (Auto) 8.9 L [place] % (Auto) 3.6 Eos % (Auto) 0.0 Baso % (Auto) 0.3 Neut # (Auto) 6.3 Lymph # (Auto) 0.6 L [place] # (Auto) 0.3 Eos # (Auto) 0.0 Baso # (Auto) 0.0 Neutrophils % (Manual) 88 H Lymphocytes % (Manual) 9 L Monocytes % (Manual) 1 Metamyelocytes % 1 H Myelocytes % 1 H Nucleated RBC % 1 H Platelet Estimate Normal Hypochromasia (manual) Slight Poikilocytosis (manual Slight Anisocytosis (manual) Slight Puncture Site Rbaa pCO2 20 L pO2 68 L HCO3 20.7 L ABG pH 7.50 H ABG Total CO2 16.2 L ABG O2 Saturation 95.1 ABG Base Excess -5.3 L Blayne Test Na ABG Potassium 3.6 A-a O2 Difference 192.0 Respiratory Index 2.8 Glucose 172 H Lactate 2.8 H FiO2 40.0 Sodium 135 138.0 Potassium 4.4 Chloride 113 H 113.0 H Carbon Dioxide 16 L Anion Gap 10 BUN 18 H Creatinine 0.8 Est GFR ( Amer) > 60 Est GFR (Non-Af Amer) > 60 Random Glucose 136 H Calcium 8.2 L Phosphorus 2.6 Magnesium 2.1 Total Bilirubin 0.2 AST 37 H ALT 42 Alkaline Phosphatase 73 Lactate Dehydrogenase 643 H Total Protein 5.9 L Albumin 2.4 L Globulin 3.5 Albumin/Globulin Ratio 0.7 L TSH 3rd Generation 0.34 L Arterial Blood Potassium 3.6 Assessment & Plan (1) Respiratory failure Status: Acute Comment: patient severely hypoxemic. Being treated for pneumocystis. Continue antibiotics. High risk for bronchoscopy because of severe hypoxemia (2) HIV (human immunodeficiency virus infection) Status: Acute (3) Pneumonia Status: Acute
[2018-06-29] MEDS: MethylPREDNISolone 40 mg Vial IVP SCH (13:16)
--- NOTE | 2018-06-29 15:24 | CP.PCM.PN ---
Subjective - Date & Time of Evaluation Date of Evaluation: 06/29/18 Time of Evaluation: 12:00 - Subjective Subjective: clinically same Objective - Vital Signs/Intake and Output Vital Signs (last 24 hours): Temp Pulse Resp BP Pulse Ox 97.5 F L 60 29 H 92/51 L 96 06/29/18 08:00 06/29/18 12:01 06/29/18 12:01 06/29/18 12:01 06/29/18 12:01 Intake and Output: 06/29/18 06/29/18 06:59 18:59 Intake Total 1407.5 550 Output Total 1200 400 Balance 207.5 150 - Medications Medications: Current Medications Acetaminophen (Tylenol 325mg Tab) 975 mg PO ONCE PRN PRN Reason: Fever >100.4 F Last Admin: 06/24/18 22:28 Dose: 975 mg Acetylcysteine (Acetylcysteine 20%) 4 ml INH RQ6 [facility] Last Admin: 06/29/18 13:25 Dose: Not Given Albuterol/Ipratropium (Duoneb 3 Mg/0.5 Mg (3 Ml) Ud) 3 ml INH RQ6 [facility] Last Admin: 06/29/18 13:25 Dose: Not Given Azithromycin (Zithromax) 1,200 mg PO Q7D [facility]; Protocol Last Admin: 06/27/18 17:47 Dose: 1,200 mg Darunavir (Prezista) 600 mg PO BID [facility]; Protocol Last Admin: 06/29/18 10:02 Dose: 600 mg Diltiazem HCl (Cardizem) 30 mg PO Q8H [facility] Last Admin: 06/29/18 14:04 Dose: 30 mg Emtricitabine/Tenofovir (Truvada 200 Mg-300 Mg) 1 tab PO Q24H [facility]; Protocol Last Admin: 06/28/18 17:46 Dose: Not Given Guaifenesin (Mucinex La) 600 mg PO BID [facility] Last Admin: 06/29/18 10:56 Dose: 600 mg Heparin Sodium (Porcine) (Heparin) 5,000 units SC Q12 [facility] Last Admin: 06/29/18 10:01 Dose: 5,000 units Cefepime HCl 1 gm/ Dextrose 50 mls @ 100 mls/hr IVPB Q8H [facility]; Protocol Last Admin: 06/29/18 14:04 Dose: 100 mls/hr Trimethoprim/Sulfamethoxazole (240 mg/ Dextrose) 250 mls @ 100 mls/hr IVPB Q6H [facility]; Protocol Last Admin: 06/29/18 08:35 Dose: 100 mls/hr Methylprednisolone (Solu-Medrol) 40 mg IVP Q12H [facility] Last Admin: 06/29/18 13:16 Dose: 40 mg Olanzapine (Zyprexa) 10 mg PO QPM [facility] Last Admin: 06/28/18 17:46 Dose: Not Given Pantoprazole Sodium (Protonix Ec Tab) 40 mg PO DAILY [facility] Last Admin: 06/29/18 10:02 Dose: 40 mg Paroxetine HCl (Paxil) 10 mg PO DAILY [facility] Last Admin: 06/29/18 10:02 Dose: 10 mg Ritonavir (Norvir) 100 mg PO BIDBS [facility]; Protocol Last Admin: 06/29/18 08:35 Dose: 100 mg Trazodone HCl (Desyrel) 50 mg PO HS [facility] Last Admin: 06/28/18 22:26 Dose: 50 mg - Labs Labs: 06/29/18 06:12 06/29/18 06:12 PT 13.4 SECONDS (9.7-12.2) H 06/24/18 22:42 INR 1.2 06/24/18 22:42 APTT 29 SECONDS (21-34) 06/24/18 22:42 - Constitutional Appears: Well - Head Exam Head Exam: ATRAUMATIC, NORMAL INSPECTION, NORMOCEPHALIC - Eye Exam Eye Exam: EOMI, Normal appearance, PERRL Pupil Exam: NORMAL ACCOMODATION, PERRL - ENT Exam ENT Exam: Mucous Membranes Moist, Normal Exam - Neck Exam Neck Exam: Full ROM, Normal Inspection. absent: Lymphadenopathy - Respiratory Exam Respiratory Exam: Decreased Breath Sounds - Cardiovascular Exam Cardiovascular Exam: REGULAR RHYTHM, +S1, +S2 - GI/Abdominal Exam GI & Abdominal Exam: Soft, Diminished Bowel Sounds - Rectal Exam Rectal Exam: Deferred
--- NOTE | 2018-06-29 16:15 | RAD ---
HISTORY: shortness of breath COMPARISON: Chest x-ray performed 06/29/18 at 931 hr TECHNIQUE: Chest, one view. FINDINGS: Right-sided PICC extends to the expected location of the cavoatrial junction. LUNGS: Re-identified infiltrates noted throughout the right greater than left mid to lower lung fine. Mild pulmonary venous congestion. Probable small right effusion; right costophrenic angle incompletely imaged. No definite pneumothorax. Please note that chest x-ray has limited sensitivity for the detection of pulmonary masses. CARDIOVASCULAR: Borderline cardiomegaly. Faint atherosclerotic calcification present. OSSEOUS STRUCTURES: No acute osseous abnormality is detected. VISUALIZED UPPER ABDOMEN: Unremarkable. OTHER FINDINGS: None. IMPRESSION: Re-identified infiltrates noted throughout the right greater than left mid to lower lung fine. Mild pulmonary venous congestion. Probable small right effusion; right costophrenic angle incompletely imaged. Right-sided PICC extends expected location of the cavoatrial junction.
[2018-06-29] MEDS: Emtricitabine-Tenofovir 200 mg-300 mg Tab PO SCH (16:23)
[2018-06-29] MEDS: guaiFENesin DM 100 mg-10 mg/5 ml UD PO PRN (18:03)
--- NOTE | 2018-06-29 18:43 | CP.PCM.PN ---
Subjective - Date & Time of Evaluation Date of Evaluation: 06/29/18 Time of Evaluation: 07:00 - Subjective Subjective: awake alert confused less sob no fever rx for PCP in progress Objective - Vital Signs/Intake and Output Vital Signs (last 24 hours): Temp Pulse Resp BP Pulse Ox 97.5 F L 61 30 H 93/52 L 94 L 06/29/18 16:00 06/29/18 17:01 06/29/18 17:01 06/29/18 17:01 06/29/18 17:01 Intake and Output: 06/29/18 06/29/18 06:59 18:59 Intake Total 1407.5 940 Output Total 1200 400 Balance 207.5 540 - Medications Medications: Current Medications Acetaminophen (Tylenol 325mg Tab) 975 mg PO ONCE PRN PRN Reason: Fever >100.4 F Last Admin: 06/24/18 22:28 Dose: 975 mg Acetylcysteine (Acetylcysteine 20%) 4 ml INH RQ6 [facility] Last Admin: 06/29/18 13:25 Dose: Not Given Albuterol/Ipratropium (Duoneb 3 Mg/0.5 Mg (3 Ml) Ud) 3 ml INH RQ6 [facility] Last Admin: 06/29/18 13:25 Dose: Not Given Azithromycin (Zithromax) 1,200 mg PO Q7D [facility]; Protocol Last Admin: 06/27/18 17:47 Dose: 1,200 mg Darunavir (Prezista) 600 mg PO BID [facility]; Protocol Last Admin: 06/29/18 18:03 Dose: 600 mg Diltiazem HCl (Cardizem) 30 mg PO Q8H [facility] Last Admin: 06/29/18 14:04 Dose: 30 mg Emtricitabine/Tenofovir (Truvada 200 Mg-300 Mg) 1 tab PO Q24H [facility]; Protocol Last Admin: 06/29/18 16:23 Dose: 1 tab Guaifenesin/Dextromethorphan (Robitussin Dm) 5 ml PO Q4H PRN PRN Reason: Cough Last Admin: 06/29/18 18:03 Dose: 5 ml Heparin Sodium (Porcine) (Heparin) 5,000 units SC Q12 [facility] Last Admin: 06/29/18 10:01 Dose: 5,000 units Cefepime HCl 1 gm/ Dextrose 50 mls @ 100 mls/hr IVPB Q8H [facility]; Protocol Last Admin: 06/29/18 14:04 Dose: 100 mls/hr Trimethoprim/Sulfamethoxazole (240 mg/ Dextrose) 250 mls @ 100 mls/hr IVPB Q6H [facility]; Protocol Last Admin: 06/29/18 16:23 Dose: 100 mls/hr Methylprednisolone (Solu-Medrol) 40 mg IVP Q12H [facility] Last Admin: 06/29/18 13:16 Dose: 40 mg Olanzapine (Zyprexa) 10 mg PO QPM [facility] Last Admin: 06/29/18 18:03 Dose: 10 mg Pantoprazole Sodium (Protonix Ec Tab) 40 mg PO DAILY [facility] Last Admin: 06/29/18 10:02 Dose: 40 mg Paroxetine HCl (Paxil) 10 mg PO DAILY [facility] Last Admin: 06/29/18 10:02 Dose: 10 mg Ritonavir (Norvir) 100 mg PO BIDBS [facility]; Protocol Last Admin: 06/29/18 16:23 Dose: 100 mg Trazodone HCl (Desyrel) 50 mg PO HS [facility] Last Admin: 06/28/18 22:26 Dose: 50 mg - Labs Labs: 06/29/18 06:12 06/29/18 06:12 PT 13.4 SECONDS (9.7-12.2) H 06/24/18 22:42 INR 1.2 06/24/18 22:42 APTT 29 SECONDS (21-34) 06/24/18 22:42 - Constitutional Appears: Non-toxic, Chronically Ill - Head Exam Head Exam: NORMOCEPHALIC - Eye Exam Eye Exam: absent: Scleral icterus - ENT Exam ENT Exam: Mucous Membranes Dry - Neck Exam Neck Exam: absent: Lymphadenopathy - Respiratory Exam Respiratory Exam: Decreased Breath Sounds, Prolonged Expiratory Phase, Rhonchi - Cardiovascular Exam Cardiovascular Exam: REGULAR RHYTHM, +S1, +S2 - GI/Abdominal Exam GI & Abdominal Exam: Distended, Soft. absent: Tenderness - Rectal Exam Rectal Exam: Deferred - Exam Exam: NORMAL INSPECTION - Extremities Exam Extremities Exam: absent: Pedal Edema - Back Exam Back Exam: absent: CVA tenderness (L), CVA tenderness (R) - Neurological Exam Neurological Exam: Altered Assessment and Plan (1) Altered mental state Status: Acute (2) CHF (congestive heart failure) Status: Acute (3) Cocaine abuse Status: Acute (4) HIV (human immunodeficiency virus infection) Status: Acute (5) Pneumonia Status: Acute (6) SVT (supraventricular tachycardia) Status: Acute (7) Schizophrenia Status: Acute
--- NOTE | 2018-06-29 22:11 | CP.PCM.PN ---
Subjective - Date & Time of Evaluation Date of Evaluation: 06/29/18 Time of Evaluation: 08:05 - Subjective Subjective: Patient is a 57-year-old female with PMHx of AIDS, schizophrenia, and cocaine use who presented with SOB and elevated HR. Code sepsis was called for fever, hypotension, and AMS. Patient was found to have multifocal PNA. Patient has R PI CC for IV antibiotics. Patient required Levophed drip and PRBC transfusion. Patient remains on high flow O2 to maintain spO2>92%. Pulmonology was consulted for possible bronchoscopy. Patient afebrile and in no acute distress during exam. CXR 06/29 - In situ right-sided PICC line, the distal aspect of which now extends superiorly overlying the right aspect of the neck presumably within the right jugular vein. This should be repositioned. Previously noted right IJ central line is no longer visible. Mild diffuse infiltrates with more confluent opacity seen in the lower lung fine. Rule out pulmonary venous congestion and/or pneumonia. Bilateral effusions right greater than left. PMHx: AIDS, schizophrenia, cocaine use disorder PSHx: unknown Allergies: ibuprofen Social Hx: tobacco and cocaine user Review of Systems - Review of Systems All systems: reviewed and no additional remarkable complaints except (shortness of breath) Past Patient History - Infectious Disease Hx of Infectious Diseases: None - Tetanus Immunizations Tetanus Immunization: Unknown - Past Medical History & Family History Past Medical History?: Yes - Past Social History Smoking Status: Heavy Smoker > 10 Cigarettes Daily Drugs: Cocaine - CARDIAC Hx Hypertension: No - PULMONARY Hx Respiratory Disorders: No Hx Tuberculosis: No - NEUROLOGICAL Hx Seizures: No - HEENT Hx HEENT Problems: No - RENAL Hx Chronic Kidney Disease: No - ENDOCRINE/METABOLIC Hx Endocrine Disorders: No - HEMATOLOGICAL/ONCOLOGICAL Hx Human Immunodeficiency Virus (HIV): Yes - INTEGUMENTARY Hx Dermatological Problems: No - MUSCULOSKELETAL/RHEUMATOLOGICAL Hx Musculoskeletal Disorders: No Hx Falls: No - GASTROINTESTINAL Hx Gastrointestinal Disorders: No - GENITOURINARY/GYNECOLOGICAL Hx Sexually Transmitted Disorders: No - PSYCHIATRIC Hx Anxiety: Yes Hx Bipolar Disorder: Yes Hx Paranoia: Yes Hx Schizophrenia: Yes Hx Substance Use: Yes (cocaine) - SURGICAL HISTORY Hx Amputation: Yes (R Big Toe) - ANESTHESIA Hx Anesthesia: Yes Hx Anesthesia Reactions: No Meds Allergies/Adverse Reactions: Allergies Allergy/AdvReac Type Severity Reaction Status Date / Time ibuprofen Allergy ANAPHYLAXIS Verified 10/17/17 19:41 - Medications Medications: Current Medications Acetaminophen (Tylenol 325mg Tab) 975 mg PO ONCE PRN PRN Reason: Fever >100.4 F Last Admin: 06/24/18 22:28 Dose: 975 mg Acetylcysteine (Acetylcysteine 20%) 4 ml INH RQ6 [facility] Last Admin: 06/29/18 07:31 Dose: 4 ml Albuterol/Ipratropium (Duoneb 3 Mg/0.5 Mg (3 Ml) Ud) 3 ml INH RQ6 [facility] Last Admin: 06/29/18 07:31 Dose: 3 ml Azithromycin (Zithromax) 1,200 mg PO Q7D [facility]; Protocol Last Admin: 06/27/18 17:47 Dose: 1,200 mg Darunavir (Prezista) 600 mg PO BID [facility]; Protocol Last Admin: 06/29/18 10:02 Dose: 600 mg Diltiazem HCl (Cardizem) 30 mg PO Q8H [facility] Last Admin: 06/29/18 05:42 Dose: 30 mg Emtricitabine/Tenofovir (Truvada 200 Mg-300 Mg) 1 tab PO Q24H [facility]; Protocol Last Admin: 06/28/18 17:46 Dose: Not Given Guaifenesin (Mucinex La) 600 mg PO BID [facility] Last Admin: 06/29/18 10:56 Dose: 600 mg Heparin Sodium (Porcine) (Heparin) 5,000 units SC Q12 [facility] Last Admin: 06/29/18 10:01 Dose: 5,000 units Cefepime HCl 1 gm/ Dextrose 50 mls @ 100 mls/hr IVPB Q8H [facility]; Protocol Last Admin: 06/29/18 06:15 Dose: 100 mls/hr Trimethoprim/Sulfamethoxazole (240 mg/ Dextrose) 250 mls @ 100 mls/hr IVPB Q6H [facility]; Protocol Last Admin: 06/29/18 08:35 Dose: 100 mls/hr Methylprednisolone (Solu-Medrol) 40 mg IVP Q12H [facility] Last Admin: 06/28/18 23:53 Dose: 40 mg Olanzapine (Zyprexa) 10 mg PO QPM [facility] Last Admin: 06/28/18 17:46 Dose: Not Given Pantoprazole Sodium (Protonix Ec Tab) 40 mg PO DAILY [facility] Last Admin: 06/29/18 10:02 Dose: 40 mg Paroxetine HCl (Paxil) 10 mg PO DAILY [facility] Last Admin: 06/29/18 10:02 Dose: 10 mg Ritonavir (Norvir) 100 mg PO BIDBS [facility]; Protocol Last Admin: 06/29/18 08:35 Dose: 100 mg Trazodone HCl (Desyrel) 50 mg PO HS [facility] Last Admin: 06/28/18 22:26 Dose: 50 mg Physical Exam - Head Exam Head Exam: ATRAUMATIC, NORMOCEPHALIC - ENT Exam ENT Exam: Mucous Membranes Moist - Neck Exam Neck exam: Positive for: Normal Inspection - Respiratory Exam Respiratory Exam: Rales - Cardiovascular Exam Cardiovascular Exam: REGULAR RHYTHM Results - Vital Signs Recent Vital Signs: Last Vital Signs Temp 97.5 F L 06/29/18 08:00 Pulse 60 06/29/18 12:01 Resp 29 H 06/29/18 12:01 BP 92/51 L 06/29/18 12:01 Pulse Ox 96 06/29/18 12:01 - Labs Result Diagrams: 06/29/18 06:12 06/29/18 06:12 Labs: Laboratory Results - last 24 hr 06/29/18 06/29/18 06/29/18 06:12 06:12 12:12 WBC 7.2 RBC 3.84 Hgb 10.8 L Hct 32.8 L MCV 85.4 MCH 28.1 MCHC 32.9 L RDW 15.5 H Plt Count 266 MPV 8.4 Neut % (Auto) 87.2 H Lymph % (Auto) 8.9 L [place] % (Auto) 3.6 Eos % (Auto) 0.0 Baso % (Auto) 0.3 Neut # (Auto) 6.3 Lymph # (Auto) 0.6 L [place] # (Auto) 0.3 Eos # (Auto) 0.0 Baso # (Auto) 0.0 Neutrophils % (Manual) 88 H Lymphocytes % (Manual) 9 L Monocytes % (Manual) 1 Metamyelocytes % 1 H Myelocytes % 1 H Nucleated RBC % 1 H Platelet Estimate Normal Hypochromasia (manual) Slight Poikilocytosis (manual Slight Anisocytosis (manual) Slight Puncture Site Rbaa pCO2 20 L pO2 68 L HCO3 20.7 L ABG pH 7.50 H ABG Total CO2 16.2 L ABG O2 Saturation 95.1 ABG Base Excess -5.3 L Blayne Test Na ABG Potassium 3.6 A-a O2 Difference 192.0 Respiratory Index 2.8 Glucose 172 H Lactate 2.8 H FiO2 40.0 Sodium 135 138.0 Potassium 4.4 Chloride 113 H 113.0 H Carbon Dioxide 16 L Anion Gap 10 BUN 18 H Creatinine 0.8 Est GFR ( Amer) > 60 Est GFR (Non-Af Amer) > 60 Random Glucose 136 H Calcium 8.2 L Phosphorus 2.6 Magnesium 2.1 Total Bilirubin 0.2 AST 37 H ALT 42 Alkaline Phosphatase 73 Lactate Dehydrogenase 643 H Total Protein 5.9 L Albumin 2.4 L Globulin 3.5 Albumin/Globulin Ratio 0.7 L TSH 3rd Generation 0.34 L Arterial Blood Potassium 3.6 Assessment & Plan (1) Respiratory failure Status: Acute Comment: patient severely hypoxemic. Being treated for pneumocystis. Continue antibiotics. High risk for bronchoscopy because of severe hypoxemia (2) HIV (human immunodeficiency virus infection) Status: Acute (3) s/p SVT Status: Acute Objective - Vital Signs/Intake and Output Vital Signs (last 24 hours): Temp Pulse Resp BP Pulse Ox 97.5 F L 73 28 H 99/53 L 97 06/29/18 16:00 06/29/18 18:01 06/29/18 20:27 06/29/18 18:01 06/29/18 18:01 Intake and Output: 06/29/18 06/30/18 18:59 06:59 Intake Total 1210 0 Output Total 650 Balance 560 0 - Medications Medications: Current Medications Acetaminophen (Tylenol 325mg Tab) 975 mg PO ONCE PRN PRN Reason: Fever >100.4 F Last Admin: 06/24/18 22:28 Dose: 975 mg Acetylcysteine (Acetylcysteine 20%) 4 ml INH RQ6 [facility] Last Admin: 06/29/18 20:26 Dose: 4 ml Albuterol/Ipratropium (Duoneb 3 Mg/0.5 Mg (3 Ml) Ud) 3 ml INH RQ6 [facility] Last Admin: 06/29/18 20:26 Dose: 3 ml Azithromycin (Zithromax) 1,200 mg PO Q7D [facility]; Protocol Last Admin: 06/27/18 17:47 Dose: 1,200 mg Darunavir (Prezista) 600 mg PO BID [facility]; Protocol Last Admin: 06/29/18 18:03 Dose: 600 mg Diltiazem HCl (Cardizem) 30 mg PO Q8H [facility] Last Admin: 06/29/18 21:59 Dose: Not Given Emtricitabine/Tenofovir (Truvada 200 Mg-300 Mg) 1 tab PO Q24H [facility]; Protocol Last Admin: 06/29/18 16:23 Dose: 1 tab Guaifenesin/Dextromethorphan (Robitussin Dm) 5 ml PO Q4H PRN PRN Reason: Cough Last Admin: 06/29/18 18:03 Dose: 5 ml Heparin Sodium (Porcine) (Heparin) 5,000 units SC Q12 [facility] Last Admin: 06/29/18 22:03 Dose: 5,000 units Cefepime HCl 1 gm/ Dextrose 50 mls @ 100 mls/hr IVPB Q8H [facility]; Protocol Last Admin: 06/29/18 14:04 Dose: 100 mls/hr Trimethoprim/Sulfamethoxazole (240 mg/ Dextrose) 250 mls @ 100 mls/hr IVPB Q6H [facility]; Protocol Last Admin: 06/29/18 20:45 Dose: 100 mls/hr Methylprednisolone (Solu-Medrol) 40 mg IVP Q12H [facility] Last Admin: 06/29/18 13:16 Dose: 40 mg Olanzapine (Zyprexa) 10 mg PO QPM [facility] Last Admin: 06/29/18 18:03 Dose: 10 mg Pantoprazole Sodium (Protonix Ec Tab) 40 mg PO DAILY [facility] Last Admin: 06/29/18 10:02 Dose: 40 mg Paroxetine HCl (Paxil) 10 mg PO DAILY [facility] Last Admin: 06/29/18 10:02 Dose: 10 mg Ritonavir (Norvir) 100 mg PO BIDBS [facility]; Protocol Last Admin: 06/29/18 16:23 Dose: 100 mg Trazodone HCl (Desyrel) 50 mg PO HS [facility] Last Admin: 06/29/18 22:03 Dose: 50 mg - Labs Labs: 06/29/18 06:12 06/29/18 06:12 PT 13.4 SECONDS (9.7-12.2) H 06/24/18 22:42 INR 1.2 06/24/18 22:42 APTT 29 SECONDS (21-34) 06/24/18 22:42
[2018-06-30] MEDS: MethylPREDNISolone 40 mg Vial IVP SCH ×2 (00:18→11:43)
[2018-06-30 00:45] LABS: URINE BILIRUBIN NEGATIVE (NEGATIVE); URINE BLOOD NEGATIVE (NEGATIVE); URINE CLARITY Clear (Clear); URINE COLOR Yellow (YELLOW); URINE GLUCOSE (UA) NORMAL (Normal); URINE LEUKOCYTE ESTERASE NEG Leu/uL (Negative); URINE PROTEIN NEGATIVE (NEGATIVE); URINE UROBILINOGEN NORMAL mg/dL (0.2-1.0)
[2018-06-30] MEDS: Acetylcysteine 20% Inhal Soln (4ml) INH SCH ×4 (01:46→19:41)
[2018-06-30] MEDS: Albuterol-Ipratrop 3 mg / 0.5 (3 ml) UD INH SCH ×3 (01:46→13:52)
[2018-06-30] MEDS: Sulfamethoxazole/Trimethoprim 240 MG in Dextrose 5% In Water 250 ML IVPB SCH ×4 (02:22→22:40)
[2018-06-30 06:27] LABS: EOS % 0.1 % (0.0-4.0); HEMOGLOBIN 10.8 g/dL (11.0-16.0); LYMPH # 0.6 K/uL (1.0-4.3); LYMPH % 5.7 % (20.0-40.0); MEAN CELL VOLUME 85.3 fL (81.0-99.0); MEAN CORPUSCULAR HEMOGLOBIN 28.6 pg (27.0-31.0); MEAN CORPUSCULAR HGB CONC 33.6 g/dL (33.0-37.0); MEAN PLATELET VOLUME 8.1 fL (7.2-11.7); MONO # 0.3 K/uL (0.0-0.8); MONO % 2.8 % (0.0-10.0); NEUT # 8.9 K/uL (1.8-7.0); NEUT % 91.4 % (50.0-75.0); PLATELET COUNT 272 K/uL (130-400); RBC 3.75 Mil/uL (3.80-5.20); RED CELL DISTRIBUTION WIDTH 15.2 % (11.5-14.5); WHITE BLOOD COUNT 9.8 K/uL (4.8-10.8)
[2018-06-30 06:53] LABS: ALB/GLOB RATIO 0.6 (1.0-2.1); ALBUMIN 2.3 g/dL (3.5-5.0); ALT/SGPT 47 U/L (9-52); AST/SGOT 43 U/L (14-36); BLOOD UREA NITROGEN 25 mg/dL (7-17); CALCIUM 8.6 mg/dl (8.6-10.4); GFR NON-AFRICAN AMERICAN > 60
[2018-06-30 09:11] LABS: BANDS 2 % (0-2); LYMPHOCYTE 5 % (20-40); MONOCYTE 2 % (0-10); NEUTROPHIL 91 % (50-75); PLATELET ESTIMATE NORMAL (NORMAL); TOTAL CELLS COUNTED 100
[2018-06-30 09:12] LABS: ANISOCYTOSIS SLIGHT; HYPOCHROMIC SLIGHT; POLYCHROMIC SLIGHT; TOXIC GRANULATION PRESENT
[2018-06-30 09:13] LABS: LARGE PLATELETS PRESENT
[2018-06-30] MEDS: Pantoprazole 40 mg EC Tab PO SCH (09:13)
--- NOTE | 2018-06-30 14:38 | CP.PCM.CON ---
History of Present Illness - History of Present Illness History of Present Illness: Patient is a 57-year-old female with PMHx of AIDS, schizophrenia, and cocaine use who presented with SOB and elevated HR. Code sepsis was called for fever, hypotension, and AMS. Patient has R PICC for IV antibiotics. Patient required Levophed drip and PRBC transfusion. Patient remains on high flow O2 to maintain spO2>92%. Cardiology was consulted for SVT. At the time of examination she is in sinus rhythm. Denies any palpitation. Past Patient History - Infectious Disease Hx of Infectious Diseases: None - Tetanus Immunizations Tetanus Immunization: Unknown - Past Medical History & Family History Past Medical History?: Yes - Past Social History Smoking Status: Heavy Smoker > 10 Cigarettes Daily Drugs: Cocaine - CARDIAC Hx Hypertension: No - PULMONARY Hx Respiratory Disorders: No Hx Tuberculosis: No - NEUROLOGICAL Hx Seizures: No - HEENT Hx HEENT Problems: No - RENAL Hx Chronic Kidney Disease: No - ENDOCRINE/METABOLIC Hx Endocrine Disorders: No - HEMATOLOGICAL/ONCOLOGICAL Hx Human Immunodeficiency Virus (HIV): Yes - INTEGUMENTARY Hx Dermatological Problems: No - MUSCULOSKELETAL/RHEUMATOLOGICAL Hx Musculoskeletal Disorders: No Hx Falls: No - GASTROINTESTINAL Hx Gastrointestinal Disorders: No - GENITOURINARY/GYNECOLOGICAL Hx Sexually Transmitted Disorders: No - PSYCHIATRIC Hx Anxiety: Yes Hx Bipolar Disorder: Yes Hx Paranoia: Yes Hx Schizophrenia: Yes Hx Substance Use: Yes (cocaine) - SURGICAL HISTORY Hx Amputation: Yes (R [place]) - ANESTHESIA Hx Anesthesia: Yes Hx Anesthesia Reactions: No Meds Allergies/Adverse Reactions: Allergies Allergy/AdvReac Type Severity Reaction Status Date / Time ibuprofen Allergy ANAPHYLAXIS Verified 10/17/17 19:41 - Medications Medications: Current Medications Acetaminophen (Tylenol 325mg Tab) 975 mg PO ONCE PRN PRN Reason: Fever >100.4 F Last Admin: 06/24/18 22:28 Dose: 975 mg Acetylcysteine (Acetylcysteine 20%) 4 ml INH RQ6 [facility] Last Admin: 06/30/18 13:52 Dose: 4 ml Albuterol/Ipratropium (Duoneb 3 Mg/0.5 Mg (3 Ml) Ud) 3 ml INH RQ6 [facility] Last Admin: 06/30/18 13:52 Dose: 3 ml Darunavir (Prezista) 600 mg PO BID [facility]; Protocol Last Admin: 11/17/18 09:14 Dose: 600 mg Diltiazem HCl (Cardizem) 30 mg PO Q8H [facility] Last Admin: 06/30/18 14:12 Dose: 30 mg Emtricitabine/Tenofovir (Truvada 200 Mg-300 Mg) 1 tab PO Q24H [facility]; Protocol Last Admin: 06/29/18 16:23 Dose: 1 tab Guaifenesin/Dextromethorphan (Robitussin Dm) 5 ml PO Q4H PRN PRN Reason: Cough Last Admin: 06/29/18 18:03 Dose: 5 ml Heparin Sodium (Porcine) (Heparin) 5,000 units SC Q12 [facility] Last Admin: 06/30/18 09:13 Dose: 5,000 units Cefepime HCl 1 gm/ Dextrose 50 mls @ 100 mls/hr IVPB Q8H [facility]; Protocol Last Admin: 06/30/18 14:14 Dose: 100 mls/hr Trimethoprim/Sulfamethoxazole (240 mg/ Dextrose) 250 mls @ 250 mls/hr IVPB Q6H [facility]; Protocol Last Admin: 06/30/18 10:27 Dose: 250 mls/hr Methylprednisolone (Solu-Medrol) 40 mg IVP Q12H [facility] Last Admin: 06/30/18 11:43 Dose: 40 mg Olanzapine (Zyprexa) 10 mg PO QPM [facility] Last Admin: 06/29/18 18:03 Dose: 10 mg Pantoprazole Sodium (Protonix Ec Tab) 40 mg PO DAILY [facility] Last Admin: 06/30/18 09:13 Dose: 40 mg Paroxetine HCl (Paxil) 10 mg PO DAILY [facility] Last Admin: 06/30/18 09:13 Dose: 10 mg Ritonavir (Norvir) 100 mg PO BIDBS [facility]; Protocol Last Admin: 06/30/18 08:21 Dose: 100 mg Trazodone HCl (Desyrel) 50 mg PO HS [facility] Last Admin: 06/29/18 22:03 Dose: 50 mg Physical Exam - Head Exam Head Exam: NORMAL INSPECTION - Neck Exam Neck exam: Positive for: Normal Inspection - Respiratory Exam Respiratory Exam: NORMAL BREATHING PATTERN - Cardiovascular Exam Cardiovascular Exam: REGULAR RHYTHM - Extremities Exam Extremities exam: Positive for: normal inspection - Neurological Exam Neurological exam: Alert, Oriented x3 Results - Vital Signs Recent Vital Signs: Last Vital Signs Temp 98.7 F 06/30/18 12:00 Pulse 87 06/30/18 13:01 Resp 30 H 06/30/18 13:53 BP 92/55 L 06/30/18 13:01 Pulse Ox 93 L 06/30/18 13:01 - Labs Result Diagrams: 07/01/18 06:43 07/01/18 06:43 Labs: Laboratory Results - last 24 hr 06/30/18 06/30/18 06/30/18 00:39 06:19 06:19 WBC 9.8 RBC 3.75 L Hgb 10.8 L Hct 32.0 L MCV 85.3 MCH 28.6 MCHC 33.6 RDW 15.2 H Plt Count 272 MPV 8.1 Neut % (Auto) 91.4 H Lymph % (Auto) 5.7 L Hardy % (Auto) 2.8 Eos % (Auto) 0.1 Baso % (Auto) 0.0 Neut # (Auto) 8.9 H Lymph # (Auto) 0.6 L Hardy # (Auto) 0.3 Eos # (Auto) 0.0 Baso # (Auto) 0.0 Neutrophils % (Manual) 91 H Band Neutrophils % 2 Lymphocytes % (Manual) 5 L Monocytes % (Manual) 2 Toxic Granulation Present Platelet Estimate Normal Large Platelets Present Polychromasia Slight Hypochromasia (manual) Slight Anisocytosis (manual) Slight Sodium 137 Potassium 4.5 Chloride 108 H Carbon Dioxide 19 L Anion Gap 14 BUN 25 H Creatinine 0.8 Est GFR ( Amer) > 60 Est GFR (Non-Af Amer) > 60 Random Glucose 124 H Calcium 8.6 Phosphorus 2.7 Magnesium 2.1 Total Bilirubin 0.2 AST 43 H ALT 47 Alkaline Phosphatase 53 Total Protein 5.9 L Albumin 2.3 L Globulin 3.6 Albumin/Globulin Ratio 0.6 L Urine Color Yellow Urine Clarity Clear Urine pH 6.0 Ur Specific [place] 1.013 Urine Protein Negative Urine Glucose (UA) Normal Urine Ketones Negative Urine Blood Negative Urine Nitrate Negative Urine Bilirubin Negative Urine Urobilinogen Normal Ur Leukocyte Esterase Neg Urine WBC (Auto) < 1 Urine RBC (Auto) 1 Assessment & Plan (1) Aortic regurgitation Assessment and Plan: stable, watch for fluid overload. Status: Acute (2) Mitral regurgitation Assessment and Plan: Stable with stable CHF. Status: Acute (3) SVT (supraventricular tachycardia) Assessment and Plan: In sinus rhythm now.Continue monitoring. Maintain electrolyte balance. Status: Acute
--- NOTE | 2018-06-30 15:29 | CP.PCM.PN ---
Subjective - Date & Time of Evaluation Date of Evaluation: 06/30/18 Time of Evaluation: 11:45 - Subjective Subjective: clinically same Objective - Vital Signs/Intake and Output Vital Signs (last 24 hours): Temp Pulse Resp BP Pulse Ox 98.7 F 76 29 H 100/54 L 93 L 06/30/18 12:00 06/30/18 15:00 06/30/18 15:00 06/30/18 15:00 06/30/18 15:00 Intake and Output: 06/30/18 06/30/18 06:59 18:59 Intake Total 1080 670 Output Total 1400 500 Balance -320 170 - Medications Medications: Current Medications Acetaminophen (Tylenol 325mg Tab) 975 mg PO ONCE PRN PRN Reason: Fever >100.4 F Last Admin: 06/24/18 22:28 Dose: 975 mg Acetylcysteine (Acetylcysteine 20%) 4 ml INH RQ6 [facility] Last Admin: 06/30/18 13:52 Dose: 4 ml Darunavir (Prezista) 600 mg PO BID [facility]; Protocol Last Admin: 06/30/18 09:14 Dose: 600 mg Diltiazem HCl (Cardizem) 30 mg PO Q8H [facility] Last Admin: 06/30/18 14:12 Dose: 30 mg Emtricitabine/Tenofovir (Truvada 200 Mg-300 Mg) 1 tab PO Q24H [facility]; Protocol Last Admin: 06/29/18 16:23 Dose: 1 tab Guaifenesin/Dextromethorphan (Robitussin Dm) 5 ml PO Q4H PRN PRN Reason: Cough Last Admin: 06/29/18 18:03 Dose: 5 ml Heparin Sodium (Porcine) (Heparin) 5,000 units SC Q12 [facility] Last Admin: 06/30/18 09:13 Dose: 5,000 units Cefepime HCl 1 gm/ Dextrose 50 mls @ 100 mls/hr IVPB Q8H [facility]; Protocol Last Admin: 06/30/18 14:14 Dose: 100 mls/hr Trimethoprim/Sulfamethoxazole (240 mg/ Dextrose) 250 mls @ 250 mls/hr IVPB Q6H [facility]; Protocol Last Admin: 06/30/18 10:27 Dose: 250 mls/hr Methylprednisolone (Solu-Medrol) 40 mg IVP Q12H [facility] Last Admin: 06/30/18 11:43 Dose: 40 mg Olanzapine (Zyprexa) 10 mg PO QPM [facility] Last Admin: 06/29/18 18:03 Dose: 10 mg Pantoprazole Sodium (Protonix Ec Tab) 40 mg PO DAILY [facility] Last Admin: 06/30/18 09:13 Dose: 40 mg Paroxetine HCl (Paxil) 10 mg PO DAILY [facility] Last Admin: 06/30/18 09:13 Dose: 10 mg Ritonavir (Norvir) 100 mg PO BIDBS [facility]; Protocol Last Admin: 06/30/18 08:21 Dose: 100 mg Trazodone HCl (Desyrel) 50 mg PO HS [facility] Last Admin: 06/29/18 22:03 Dose: 50 mg - Labs Labs: 06/30/18 06:19 06/30/18 06:19 PT 13.4 SECONDS (9.7-12.2) H 06/24/18 22:42 INR 1.2 06/24/18 22:42 APTT 29 SECONDS (21-34) 06/24/18 22:42 - Constitutional Appears: Well - Head Exam Head Exam: ATRAUMATIC, NORMAL INSPECTION, NORMOCEPHALIC - Eye Exam Eye Exam: EOMI, Normal appearance, PERRL Pupil Exam: NORMAL ACCOMODATION, PERRL - ENT Exam ENT Exam: Mucous Membranes Moist, Normal Exam - Neck Exam Neck Exam: Full ROM, Normal Inspection. absent: Lymphadenopathy - Respiratory Exam Respiratory Exam: Decreased Breath Sounds - Cardiovascular Exam Cardiovascular Exam: REGULAR RHYTHM, +S1, +S2 - GI/Abdominal Exam GI & Abdominal Exam: Soft, Diminished Bowel Sounds - Rectal Exam Rectal Exam: Deferred
--- NOTE | 2018-06-30 15:33 | CP.PCM.PN ---
Subjective - Date & Time of Evaluation Date of Evaluation: 06/30/18 Time of Evaluation: 12:00 - Subjective Subjective: clinically same Objective - Vital Signs/Intake and Output Vital Signs (last 24 hours): Temp Pulse Resp BP Pulse Ox 98.7 F 76 29 H 100/54 L 93 L 06/30/18 12:00 06/30/18 15:00 06/30/18 15:00 06/30/18 15:00 06/30/18 15:00 Intake and Output: 06/30/18 06/30/18 06:59 18:59 Intake Total 1080 670 Output Total 1400 500 Balance -320 170 - Medications Medications: Current Medications Acetaminophen (Tylenol 325mg Tab) 975 mg PO ONCE PRN PRN Reason: Fever >100.4 F Last Admin: 06/24/18 22:28 Dose: 975 mg Acetylcysteine (Acetylcysteine 20%) 4 ml INH RQ6 [facility] Last Admin: 06/30/18 13:52 Dose: 4 ml Darunavir (Prezista) 600 mg PO BID [facility]; Protocol Last Admin: 06/30/18 09:14 Dose: 600 mg Diltiazem HCl (Cardizem) 30 mg PO Q8H [facility] Last Admin: 06/30/18 14:12 Dose: 30 mg Emtricitabine/Tenofovir (Truvada 200 Mg-300 Mg) 1 tab PO Q24H [facility]; Protocol Last Admin: 06/29/18 16:23 Dose: 1 tab Guaifenesin/Dextromethorphan (Robitussin Dm) 5 ml PO Q4H PRN PRN Reason: Cough Last Admin: 06/29/18 18:03 Dose: 5 ml Heparin Sodium (Porcine) (Heparin) 5,000 units SC Q12 [facility] Last Admin: 06/30/18 09:13 Dose: 5,000 units Cefepime HCl 1 gm/ Dextrose 50 mls @ 100 mls/hr IVPB Q8H [facility]; Protocol Last Admin: 06/30/18 14:14 Dose: 100 mls/hr Trimethoprim/Sulfamethoxazole (240 mg/ Dextrose) 250 mls @ 250 mls/hr IVPB Q6H [facility]; Protocol Last Admin: 06/30/18 10:27 Dose: 250 mls/hr Methylprednisolone (Solu-Medrol) 40 mg IVP Q12H [facility] Last Admin: 06/30/18 11:43 Dose: 40 mg Olanzapine (Zyprexa) 10 mg PO QPM [facility] Last Admin: 06/29/18 18:03 Dose: 10 mg Pantoprazole Sodium (Protonix Ec Tab) 40 mg PO DAILY [facility] Last Admin: 06/30/18 09:13 Dose: 40 mg Paroxetine HCl (Paxil) 10 mg PO DAILY [facility] Last Admin: 06/30/18 09:13 Dose: 10 mg Ritonavir (Norvir) 100 mg PO BIDBS [facility]; Protocol Last Admin: 06/30/18 08:21 Dose: 100 mg Trazodone HCl (Desyrel) 50 mg PO HS [facility] Last Admin: 06/29/18 22:03 Dose: 50 mg - Labs Labs: 06/30/18 06:19 06/30/18 06:19 PT 13.4 SECONDS (9.7-12.2) H 06/24/18 22:42 INR 1.2 06/24/18 22:42 APTT 29 SECONDS (21-34) 06/24/18 22:42 - Constitutional Appears: Well - Head Exam Head Exam: ATRAUMATIC, NORMAL INSPECTION, NORMOCEPHALIC - Eye Exam Eye Exam: EOMI, Normal appearance, PERRL Pupil Exam: NORMAL ACCOMODATION, PERRL - ENT Exam ENT Exam: Mucous Membranes Moist, Normal Exam - Neck Exam Neck Exam: Full ROM, Normal Inspection. absent: Lymphadenopathy - Respiratory Exam Respiratory Exam: Decreased Breath Sounds - Cardiovascular Exam Cardiovascular Exam: REGULAR RHYTHM, +S1, +S2 - GI/Abdominal Exam GI & Abdominal Exam: Soft, Diminished Bowel Sounds - Rectal Exam Rectal Exam: Deferred
[2018-06-30] MEDS: Emtricitabine-Tenofovir 200 mg-300 mg Tab PO SCH (16:14)
--- NOTE | 2018-06-30 18:31 | CP.PCM.PN ---
Subjective - Date & Time of Evaluation Date of Evaluation: 06/30/18 Time of Evaluation: 17:50 - Subjective Subjective: patient seen and examined Less short of breath Afebrile Clinically improving Objective - Vital Signs/Intake and Output Vital Signs (last 24 hours): Temp Pulse Resp BP Pulse Ox 98.0 F 76 28 H 97/53 L 97 06/30/18 16:00 06/30/18 18:01 06/30/18 18:01 06/30/18 18:01 06/30/18 18:00 Intake and Output: 06/30/18 06/30/18 06:59 18:59 Intake Total 1080 1120 Output Total 1400 1020 Balance -320 100 - Medications Medications: Current Medications Acetaminophen (Tylenol 325mg Tab) 975 mg PO ONCE PRN PRN Reason: Fever >100.4 F Last Admin: 06/24/18 22:28 Dose: 975 mg Acetylcysteine (Acetylcysteine 20%) 4 ml INH RQ6 [facility] Last Admin: 06/30/18 13:52 Dose: 4 ml Darunavir (Prezista) 600 mg PO BID [facility]; Protocol Last Admin: 06/30/18 17:20 Dose: 600 mg Diltiazem HCl (Cardizem) 30 mg PO Q8H [facility] Last Admin: 06/30/18 14:12 Dose: 30 mg Emtricitabine/Tenofovir (Truvada 200 Mg-300 Mg) 1 tab PO Q24H [facility]; Protocol Last Admin: 06/30/18 16:14 Dose: 1 tab Guaifenesin/Dextromethorphan (Robitussin Dm) 5 ml PO Q4H PRN PRN Reason: Cough Last Admin: 06/29/18 18:03 Dose: 5 ml Heparin Sodium (Porcine) (Heparin) 5,000 units SC Q12 [facility] Last Admin: 06/30/18 09:13 Dose: 5,000 units Cefepime HCl 1 gm/ Dextrose 50 mls @ 100 mls/hr IVPB Q8H [facility]; Protocol Last Admin: 06/30/18 14:14 Dose: 100 mls/hr Trimethoprim/Sulfamethoxazole (240 mg/ Dextrose) 250 mls @ 250 mls/hr IVPB Q6H [facility]; Protocol Last Admin: 06/30/18 16:15 Dose: 250 mls/hr Methylprednisolone (Solu-Medrol) 40 mg IVP Q12H [facility] Last Admin: 06/30/18 11:43 Dose: 40 mg Olanzapine (Zyprexa) 10 mg PO QPM [facility] Last Admin: 06/30/18 17:20 Dose: 10 mg Pantoprazole Sodium (Protonix Ec Tab) 40 mg PO DAILY [facility] Last Admin: 06/30/18 09:13 Dose: 40 mg Paroxetine HCl (Paxil) 10 mg PO DAILY [facility] Last Admin: 06/30/18 09:13 Dose: 10 mg Ritonavir (Norvir) 100 mg PO BIDBS [facility]; Protocol Last Admin: 06/30/18 16:14 Dose: 100 mg Trazodone HCl (Desyrel) 50 mg PO HS [facility] Last Admin: 06/29/18 22:03 Dose: 50 mg - Labs Labs: 06/30/18 06:19 06/30/18 06:19 PT 13.4 SECONDS (9.7-12.2) H 06/24/18 22:42 INR 1.2 06/24/18 22:42 APTT 29 SECONDS (21-34) 06/24/18 22:42 - Head Exam Head Exam: ATRAUMATIC, NORMOCEPHALIC - ENT Exam ENT Exam: Mucous Membranes Moist - Respiratory Exam Respiratory Exam: Rales - Cardiovascular Exam Cardiovascular Exam: REGULAR RHYTHM - GI/Abdominal Exam GI & Abdominal Exam: Soft, Normal Bowel Sounds - Extremities Exam Extremities Exam: Normal Inspection Assessment and Plan (1) Respiratory failure Assessment & Plan: Continue antibiotics/bactrim And steroids followup chest x-ray and ABg Status: Acute (2) HIV (human immunodeficiency virus infection) Status: Acute (3) Pneumonia Status: Acute
[2018-07-01] MEDS: MethylPREDNISolone 40 mg Vial IVP SCH ×3 (00:47→23:48)
[2018-07-01] MEDS: Albuterol-Ipratrop 3 mg / 0.5 (3 ml) UD INH SCH ×4 (01:45→19:42)
[2018-07-01] MEDS: Sulfamethoxazole/Trimethoprim 240 MG in Dextrose 5% In Water 250 ML IVPB SCH ×4 (04:23→21:15)
[2018-07-01 06:48] LABS: BASO % 0.1 % (0.0-2.0); HEMOGLOBIN 10.6 g/dL (11.0-16.0); LYMPH # 0.5 K/uL (1.0-4.3); LYMPH % 5.8 % (20.0-40.0); MEAN CELL VOLUME 85.8 fL (81.0-99.0); MEAN CORPUSCULAR HEMOGLOBIN 28.3 pg (27.0-31.0); MEAN CORPUSCULAR HGB CONC 32.9 g/dL (33.0-37.0); MEAN PLATELET VOLUME 7.9 fL (7.2-11.7); MONO # 0.2 K/uL (0.0-0.8); NEUT # 8.5 K/uL (1.8-7.0); NEUT % 92.1 % (50.0-75.0); NRBC % 0.1 % (0.0-2.0); PLATELET COUNT 232 K/uL (130-400); RBC 3.74 Mil/uL (3.80-5.20); RED CELL DISTRIBUTION WIDTH 15.3 % (11.5-14.5); WHITE BLOOD COUNT 9.3 K/uL (4.8-10.8)
[2018-07-01 07:07] LABS: ALB/GLOB RATIO 0.7 (1.0-2.1); ALBUMIN 2.3 g/dL (3.5-5.0); ALT/SGPT 51 U/L (9-52); AST/SGOT 31 U/L (14-36); BLOOD UREA NITROGEN 24 mg/dL (7-17); CALCIUM 8.3 mg/dl (8.6-10.4); GFR NON-AFRICAN AMERICAN > 60
[2018-07-01 08:26] LABS: BANDS 3 % (0-2); LYMPHOCYTE 6 % (20-40); MONOCYTE 2 % (0-10); NEUTROPHIL 89 % (50-75); PLATELET ESTIMATE NORMAL (NORMAL); TOTAL CELLS COUNTED 100
[2018-07-01 08:28] LABS: HYPOCHROMIC SLIGHT
[2018-07-01 08:29] LABS: ANISOCYTOSIS SLIGHT; BURR CELLS SLIGHT; OVALOCYTES SLIGHT; POIKILOCYTOSIS SLIGHT; POLYCHROMIC SLIGHT; SCHISTOCYTES SLIGHT
[2018-07-01 08:30] LABS: TOXIC GRANULATION PRESENT
[2018-07-01] MEDS: Pantoprazole 40 mg EC Tab PO SCH (09:36)
--- NOTE | 2018-07-01 12:57 | CP.PCM.PN ---
Subjective - Date & Time of Evaluation Date of Evaluation: 07/01/18 Time of Evaluation: 11:00 - Subjective Subjective: clinically same Objective - Vital Signs/Intake and Output Vital Signs (last 24 hours): Temp Pulse Resp BP Pulse Ox 97.8 F 62 20 107/59 L 97 07/01/18 04:00 07/01/18 07:01 07/01/18 08:49 07/01/18 07:01 07/01/18 07:01 Intake and Output: 07/01/18 07/01/18 06:59 18:59 Intake Total 900 Output Total 700 Balance 200 - Medications Medications: Current Medications Acetaminophen (Tylenol 325mg Tab) 975 mg PO ONCE PRN PRN Reason: Fever >100.4 F Last Admin: 06/24/18 22:28 Dose: 975 mg Albuterol/Ipratropium (Duoneb 3 Mg/0.5 Mg (3 Ml) Ud) 3 ml INH RQ6 [facility] Last Admin: 07/01/18 08:48 Dose: 3 ml Darunavir (Prezista) 600 mg PO BID [facility]; Protocol Last Admin: 07/01/18 09:37 Dose: 600 mg Diltiazem HCl (Cardizem) 30 mg PO Q8H [facility] Last Admin: 07/01/18 06:14 Dose: Not Given Emtricitabine/Tenofovir (Truvada 200 Mg-300 Mg) 1 tab PO Q24H [facility]; Protocol Last Admin: 06/30/18 16:14 Dose: 1 tab Guaifenesin/Dextromethorphan (Robitussin Dm) 5 ml PO Q4H PRN PRN Reason: Cough Last Admin: 06/29/18 18:03 Dose: 5 ml Heparin Sodium (Porcine) (Heparin) 5,000 units SC Q12 [facility] Last Admin: 07/01/18 09:36 Dose: 5,000 units Cefepime HCl 1 gm/ Dextrose 50 mls @ 100 mls/hr IVPB Q8H [facility]; Protocol Last Admin: 07/01/18 06:14 Dose: 100 mls/hr Trimethoprim/Sulfamethoxazole (240 mg/ Dextrose) 250 mls @ 250 mls/hr IVPB Q6H [facility]; Protocol Last Admin: 07/01/18 09:39 Dose: 250 mls/hr Methylprednisolone (Solu-Medrol) 40 mg IVP Q12H [facility] Last Admin: 07/01/18 00:47 Dose: 40 mg Olanzapine (Zyprexa) 10 mg PO QPM [facility] Last Admin: 06/30/18 17:20 Dose: 10 mg Pantoprazole Sodium (Protonix Ec Tab) 40 mg PO DAILY [facility] Last Admin: 07/01/18 09:36 Dose: 40 mg Paroxetine HCl (Paxil) 10 mg PO DAILY [facility] Last Admin: 07/01/18 09:37 Dose: 10 mg Ritonavir (Norvir) 100 mg PO BIDBS [facility]; Protocol Last Admin: 07/01/18 09:37 Dose: 100 mg Trazodone HCl (Desyrel) 50 mg PO HS [facility] Last Admin: 06/30/18 22:51 Dose: 50 mg - Labs Labs: 07/01/18 06:43 07/01/18 06:43 PT 13.4 SECONDS (9.7-12.2) H 06/24/18 22:42 INR 1.2 06/24/18 22:42 APTT 29 SECONDS (21-34) 06/24/18 22:42 - Constitutional Appears: Well - Head Exam Head Exam: ATRAUMATIC, NORMAL INSPECTION, NORMOCEPHALIC - Eye Exam Eye Exam: EOMI, Normal appearance, PERRL Pupil Exam: NORMAL ACCOMODATION, PERRL - ENT Exam ENT Exam: Mucous Membranes Moist, Normal Exam - Neck Exam Neck Exam: Full ROM, Normal Inspection. absent: Lymphadenopathy - Respiratory Exam Respiratory Exam: Decreased Breath Sounds - Cardiovascular Exam Cardiovascular Exam: REGULAR RHYTHM, +S1, +S2 - GI/Abdominal Exam GI & Abdominal Exam: Soft, Diminished Bowel Sounds - Rectal Exam Rectal Exam: Deferred
--- NOTE | 2018-07-01 13:58 | CP.PCM.PN ---
Subjective - Date & Time of Evaluation Date of Evaluation: 07/01/18 Time of Evaluation: 13:56 - Subjective Subjective: Feeling better, still SOB. when I can go home. Objective - Vital Signs/Intake and Output Vital Signs (last 24 hours): Temp Pulse Resp BP Pulse Ox 97.8 F 62 21 107/59 L 97 07/01/18 04:00 07/01/18 07:01 07/01/18 13:30 07/01/18 07:01 07/01/18 07:01 Intake and Output: 07/01/18 07/01/18 06:59 18:59 Intake Total 900 Output Total 700 Balance 200 - Medications Medications: Current Medications Acetaminophen (Tylenol 325mg Tab) 975 mg PO ONCE PRN PRN Reason: Fever >100.4 F Last Admin: 06/24/18 22:28 Dose: 975 mg Albuterol/Ipratropium (Duoneb 3 Mg/0.5 Mg (3 Ml) Ud) 3 ml INH RQ6 [facility] Last Admin: 07/01/18 13:28 Dose: 3 ml Darunavir (Prezista) 600 mg PO BID [facility]; Protocol Last Admin: 07/01/18 09:37 Dose: 600 mg Diltiazem HCl (Cardizem) 30 mg PO Q8H [facility] Last Admin: 07/01/18 06:14 Dose: Not Given Emtricitabine/Tenofovir (Truvada 200 Mg-300 Mg) 1 tab PO Q24H [facility]; Protocol Last Admin: 06/30/18 16:14 Dose: 1 tab Guaifenesin/Dextromethorphan (Robitussin Dm) 5 ml PO Q4H PRN PRN Reason: Cough Last Admin: 06/29/18 18:03 Dose: 5 ml Heparin Sodium (Porcine) (Heparin) 5,000 units SC Q12 [facility] Last Admin: 07/01/18 09:36 Dose: 5,000 units Cefepime HCl 1 gm/ Dextrose 50 mls @ 100 mls/hr IVPB Q8H [facility]; Protocol Last Admin: 07/01/18 06:14 Dose: 100 mls/hr Trimethoprim/Sulfamethoxazole (240 mg/ Dextrose) 250 mls @ 250 mls/hr IVPB Q6H [facility]; Protocol Last Admin: 07/01/18 09:39 Dose: 250 mls/hr Methylprednisolone (Solu-Medrol) 40 mg IVP Q12H [facility] Last Admin: 07/01/18 00:47 Dose: 40 mg Olanzapine (Zyprexa) 10 mg PO QPM [facility] Last Admin: 06/30/18 17:20 Dose: 10 mg Pantoprazole Sodium (Protonix Ec Tab) 40 mg PO DAILY [facility] Last Admin: 07/01/18 09:36 Dose: 40 mg Paroxetine HCl (Paxil) 10 mg PO DAILY [facility] Last Admin: 07/01/18 09:37 Dose: 10 mg Ritonavir (Norvir) 100 mg PO BIDBS [facility]; Protocol Last Admin: 07/01/18 09:37 Dose: 100 mg Trazodone HCl (Desyrel) 50 mg PO HS [facility] Last Admin: 06/30/18 22:51 Dose: 50 mg - Labs Labs: 07/01/18 06:43 07/01/18 06:43 PT 13.4 SECONDS (9.7-12.2) H 06/24/18 22:42 INR 1.2 06/24/18 22:42 APTT 29 SECONDS (21-34) 06/24/18 22:42 - Head Exam Head Exam: NORMOCEPHALIC - Neck Exam Neck Exam: Normal Inspection - Respiratory Exam Respiratory Exam: NORMAL BREATHING PATTERN - Cardiovascular Exam Cardiovascular Exam: REGULAR RHYTHM - Extremities Exam Extremities Exam: Normal Inspection Assessment and Plan (1) Aortic regurgitation Assessment & Plan: Stable. Status: Acute (2) Mitral regurgitation Status: Acute (3) SVT (supraventricular tachycardia) Assessment & Plan: No new episodes. Plans for EP study when other issues are resolved. Status: Acute
--- NOTE | 2018-07-01 16:29 | CP.PCM.PN ---
Subjective - Date & Time of Evaluation Date of Evaluation: 07/01/18 Time of Evaluation: 05:00 - Subjective Subjective: awake alert OOB to chair IV rx in progress Objective - Vital Signs/Intake and Output Vital Signs (last 24 hours): Temp Pulse Resp BP Pulse Ox 97.8 F 62 21 107/59 L 97 07/01/18 04:00 07/01/18 07:01 07/01/18 13:30 07/01/18 07:01 07/01/18 07:01 Intake and Output: 07/01/18 07/01/18 06:59 18:59 Intake Total 900 Output Total 700 Balance 200 - Medications Medications: Current Medications Acetaminophen (Tylenol 325mg Tab) 975 mg PO ONCE PRN PRN Reason: Fever >100.4 F Last Admin: 06/24/18 22:28 Dose: 975 mg Albuterol/Ipratropium (Duoneb 3 Mg/0.5 Mg (3 Ml) Ud) 3 ml INH RQ6 [facility] Last Admin: 07/01/18 13:28 Dose: 3 ml Darunavir (Prezista) 600 mg PO BID [facility]; Protocol Last Admin: 07/01/18 09:37 Dose: 600 mg Diltiazem HCl (Cardizem) 30 mg PO Q8H [facility] Last Admin: 07/01/18 15:08 Dose: 30 mg Emtricitabine/Tenofovir (Truvada 200 Mg-300 Mg) 1 tab PO Q24H [facility]; Protocol Last Admin: 06/30/18 16:14 Dose: 1 tab Guaifenesin/Dextromethorphan (Robitussin Dm) 5 ml PO Q4H PRN PRN Reason: Cough Last Admin: 06/29/18 18:03 Dose: 5 ml Heparin Sodium (Porcine) (Heparin) 5,000 units SC Q12 [facility] Last Admin: 07/01/18 09:36 Dose: 5,000 units Cefepime HCl 1 gm/ Dextrose 50 mls @ 100 mls/hr IVPB Q8H [facility]; Protocol Last Admin: 07/01/18 15:08 Dose: 100 mls/hr Trimethoprim/Sulfamethoxazole (240 mg/ Dextrose) 250 mls @ 250 mls/hr IVPB Q6H [facility]; Protocol Last Admin: 07/01/18 09:39 Dose: 250 mls/hr Methylprednisolone (Solu-Medrol) 40 mg IVP Q12H [facility] Last Admin: 07/01/18 15:08 Dose: 40 mg Olanzapine (Zyprexa) 10 mg PO QPM [facility] Last Admin: 06/30/18 17:20 Dose: 10 mg Pantoprazole Sodium (Protonix Ec Tab) 40 mg PO DAILY [facility] Last Admin: 07/01/18 09:36 Dose: 40 mg Paroxetine HCl (Paxil) 10 mg PO DAILY [facility] Last Admin: 07/01/18 09:37 Dose: 10 mg Ritonavir (Norvir) 100 mg PO BIDBS [facility]; Protocol Last Admin: 07/01/18 09:37 Dose: 100 mg Trazodone HCl (Desyrel) 50 mg PO HS [facility] Last Admin: 06/30/18 22:51 Dose: 50 mg - Labs Labs: 07/01/18 06:43 07/01/18 06:43 PT 13.4 SECONDS (9.7-12.2) H 06/24/18 22:42 INR 1.2 06/24/18 22:42 APTT 29 SECONDS (21-34) 06/24/18 22:42 - Constitutional Appears: Non-toxic, Cachectic, Chronically Ill - Head Exam Head Exam: NORMOCEPHALIC - Eye Exam Eye Exam: absent: Scleral icterus - ENT Exam ENT Exam: Mucous Membranes Dry - Neck Exam Neck Exam: absent: Lymphadenopathy - Respiratory Exam Respiratory Exam: Decreased Breath Sounds - Cardiovascular Exam Cardiovascular Exam: REGULAR RHYTHM - GI/Abdominal Exam GI & Abdominal Exam: Distended, Soft - Rectal Exam Rectal Exam: Deferred - Exam Exam: NORMAL INSPECTION - Extremities Exam Extremities Exam: absent: Pedal Edema - Back Exam Back Exam: absent: CVA tenderness (L), CVA tenderness (R) - Neurological Exam Neurological Exam: Alert, Awake Assessment and Plan (1) Altered mental state Status: Acute (2) CHF (congestive heart failure) Status: Acute (3) Cocaine abuse Status: Acute (4) HIV (human immunodeficiency virus infection) Status: Acute (5) Pneumonia Status: Acute (6) SVT (supraventricular tachycardia) Status: Acute (7) Schizophrenia Status: Acute - Assessment and Plan (Free Text) Assessment: IV bactrim renewed cont rx for 21 days
[2018-07-01] MEDS: Emtricitabine-Tenofovir 200 mg-300 mg Tab PO SCH (17:12)
[2018-07-01] MEDS: cefTRIAXone 2 GM in Sodium Chloride 0.9% 100 ML IVPB SCH (17:20)
--- NOTE | 2018-07-01 21:14 | CP.PCM.PN ---
Subjective - Date & Time of Evaluation Date of Evaluation: 06/30/18 Time of Evaluation: 20:30 - Subjective Subjective: Patient seen and evaluated Denies chest pain and dyspnea Physical Exam - Head Exam Head Exam: ATRAUMATIC, NORMOCEPHALIC - ENT Exam ENT Exam: Mucous Membranes Moist - Neck Exam Neck exam: Positive for: Normal Inspection - Respiratory Exam Respiratory Exam: Rales - Cardiovascular Exam Cardiovascular Exam: REGULAR RHYTHM Assessment & Plan (1) Respiratory failure Status: Acute Comment: patient severely hypoxemic. Being treated for pneumocystis. Continue antibiotics. High risk for bronchoscopy because of severe hypoxemia (2) HIV (human immunodeficiency virus infection) Status: Acute (3) s/p SVT Status: Acute EP evaluation pending Objective - Vital Signs/Intake and Output Vital Signs (last 24 hours): Temp Pulse Resp BP Pulse Ox 97.7 F 85 24 96/45 L 100 07/01/18 20:00 07/01/18 20:01 07/01/18 20:01 07/01/18 20:01 07/01/18 20:01 - Medications Medications: Current Medications Acetaminophen (Tylenol 325mg Tab) 975 mg PO ONCE PRN PRN Reason: Fever >100.4 F Last Admin: 06/24/18 22:28 Dose: 975 mg Albuterol/Ipratropium (Duoneb 3 Mg/0.5 Mg (3 Ml) Ud) 3 ml INH RQ6 [facility] Last Admin: 07/01/18 19:42 Dose: 3 ml Darunavir (Prezista) 600 mg PO BID [facility]; Protocol Last Admin: 07/01/18 17:12 Dose: 600 mg Diltiazem HCl (Cardizem) 30 mg PO Q8H [facility] Last Admin: 07/01/18 15:08 Dose: 30 mg Emtricitabine/Tenofovir (Truvada 200 Mg-300 Mg) 1 tab PO Q24H [facility]; Protocol Last Admin: 07/01/18 17:12 Dose: 1 tab Guaifenesin/Dextromethorphan (Robitussin Dm) 5 ml PO Q4H PRN PRN Reason: Cough Last Admin: 06/29/18 18:03 Dose: 5 ml Heparin Sodium (Porcine) (Heparin) 5,000 units SC Q12 [facility] Last Admin: 07/01/18 09:36 Dose: 5,000 units Trimethoprim/Sulfamethoxazole (240 mg/ Dextrose) 250 mls @ 250 mls/hr IVPB Q6H [facility]; Protocol Last Admin: 07/01/18 17:11 Dose: 250 mls/hr Ceftriaxone Sodium 2 gm/ (Sodium Chloride) 100 mls @ 100 mls/hr IVPB Q24H [facility]; Protocol Last Admin: 07/01/18 17:20 Dose: 100 mls/hr Methylprednisolone (Solu-Medrol) 40 mg IVP Q12H [facility] Last Admin: 07/01/18 15:08 Dose: 40 mg Olanzapine (Zyprexa) 10 mg PO QPM [facility] Last Admin: 07/01/18 17:13 Dose: 10 mg Pantoprazole Sodium (Protonix Ec Tab) 40 mg PO DAILY [facility] Last Admin: 07/01/18 09:36 Dose: 40 mg Paroxetine HCl (Paxil) 10 mg PO DAILY [facility] Last Admin: 07/01/18 09:37 Dose: 10 mg Ritonavir (Norvir) 100 mg PO BIDBS [facility]; Protocol Last Admin: 07/01/18 17:12 Dose: 100 mg Trazodone HCl (Desyrel) 50 mg PO HS [facility] Last Admin: 06/30/18 22:51 Dose: 50 mg - Labs Labs: 07/01/18 06:43 07/01/18 06:43 PT 13.4 SECONDS (9.7-12.2) H 06/24/18 22:42 INR 1.2 06/24/18 22:42 APTT 29 SECONDS (21-34) 06/24/18 22:42
--- NOTE | 2018-07-01 21:15 | CP.PCM.PN ---
Subjective - Date & Time of Evaluation Date of Evaluation: 07/01/18 Time of Evaluation: 07:35 - Subjective Subjective: Patient seen and evaluated No new complaints S/P SVT Physical Exam - Head Exam Head Exam: ATRAUMATIC, NORMOCEPHALIC - ENT Exam ENT Exam: Mucous Membranes Moist - Neck Exam Neck exam: Positive for: Normal Inspection - Respiratory Exam Respiratory Exam: Rales - Cardiovascular Exam Cardiovascular Exam: REGULAR RHYTHM Assessment & Plan (1) Respiratory failure Status: Acute Comment: patient severely hypoxemic. Being treated for pneumocystis. Continue antibiotics. High risk for bronchoscopy because of severe hypoxemia (2) HIV (human immunodeficiency virus infection) Status: Acute (3) s/p SVT Status: Acute EP evaluation pending Objective - Vital Signs/Intake and Output Vital Signs (last 24 hours): Temp Pulse Resp BP Pulse Ox 97.7 F 85 24 96/45 L 100 07/01/18 20:00 07/01/18 20:01 07/01/18 20:01 07/01/18 20:01 07/01/18 20:01 - Medications Medications: Current Medications Acetaminophen (Tylenol 325mg Tab) 975 mg PO ONCE PRN PRN Reason: Fever >100.4 F Last Admin: 06/24/18 22:28 Dose: 975 mg Albuterol/Ipratropium (Duoneb 3 Mg/0.5 Mg (3 Ml) Ud) 3 ml INH RQ6 [facility] Last Admin: 07/01/18 19:42 Dose: 3 ml Darunavir (Prezista) 600 mg PO BID [facility]; Protocol Last Admin: 07/01/18 17:12 Dose: 600 mg Diltiazem HCl (Cardizem) 30 mg PO Q8H [facility] Last Admin: 07/01/18 15:08 Dose: 30 mg Emtricitabine/Tenofovir (Truvada 200 Mg-300 Mg) 1 tab PO Q24H [facility]; Protocol Last Admin: 07/01/18 17:12 Dose: 1 tab Guaifenesin/Dextromethorphan (Robitussin Dm) 5 ml PO Q4H PRN PRN Reason: Cough Last Admin: 06/29/18 18:03 Dose: 5 ml Heparin Sodium (Porcine) (Heparin) 5,000 units SC Q12 [facility] Last Admin: 07/01/18 09:36 Dose: 5,000 units Trimethoprim/Sulfamethoxazole (240 mg/ Dextrose) 250 mls @ 250 mls/hr IVPB Q6H [facility]; Protocol Last Admin: 07/01/18 17:11 Dose: 250 mls/hr Ceftriaxone Sodium 2 gm/ (Sodium Chloride) 100 mls @ 100 mls/hr IVPB Q24H [facility]; Protocol Last Admin: 07/01/18 17:20 Dose: 100 mls/hr Methylprednisolone (Solu-Medrol) 40 mg IVP Q12H [facility] Last Admin: 07/01/18 15:08 Dose: 40 mg Olanzapine (Zyprexa) 10 mg PO QPM [facility] Last Admin: 07/01/18 17:13 Dose: 10 mg Pantoprazole Sodium (Protonix Ec Tab) 40 mg PO DAILY [facility] Last Admin: 07/01/18 09:36 Dose: 40 mg Paroxetine HCl (Paxil) 10 mg PO DAILY [facility] Last Admin: 07/01/18 09:37 Dose: 10 mg Ritonavir (Norvir) 100 mg PO BIDBS [facility]; Protocol Last Admin: 07/01/18 17:12 Dose: 100 mg Trazodone HCl (Desyrel) 50 mg PO HS [facility] Last Admin: 06/30/18 22:51 Dose: 50 mg - Labs Labs: 07/01/18 06:43 07/01/18 06:43 PT 13.4 SECONDS (9.7-12.2) H 06/24/18 22:42 INR 1.2 06/24/18 22:42 APTT 29 SECONDS (21-34) 06/24/18 22:42
[2018-07-02] MEDS: Albuterol-Ipratrop 3 mg / 0.5 (3 ml) UD INH SCH ×3 (01:17→13:05)
[2018-07-02] MEDS: Sulfamethoxazole/Trimethoprim 240 MG in Dextrose 5% In Water 250 ML IVPB SCH ×4 (05:00→22:34)
[2018-07-02 06:19] LABS: BASO % 0.1 % (0.0-2.0); EOS % 0.3 % (0.0-4.0); HEMOGLOBIN 10.5 g/dL (11.0-16.0); LYMPH # 0.4 K/uL (1.0-4.3); LYMPH % 4.4 % (20.0-40.0); MEAN CELL VOLUME 85.7 fL (81.0-99.0); MEAN CORPUSCULAR HEMOGLOBIN 28.6 pg (27.0-31.0); MEAN CORPUSCULAR HGB CONC 33.4 g/dL (33.0-37.0); MEAN PLATELET VOLUME 8.1 fL (7.2-11.7); MONO # 0.2 K/uL (0.0-0.8); MONO % 1.8 % (0.0-10.0); NEUT # 8.6 K/uL (1.8-7.0); NEUT % 93.4 % (50.0-75.0); NRBC % 0.1 % (0.0-2.0); PLATELET COUNT 234 K/uL (130-400); RBC 3.68 Mil/uL (3.80-5.20); RED CELL DISTRIBUTION WIDTH 15.3 % (11.5-14.5); WHITE BLOOD COUNT 9.3 K/uL (4.8-10.8)
[2018-07-02 06:24] LABS: ALB/GLOB RATIO 0.7 (1.0-2.1); ALBUMIN 2.5 g/dL (3.5-5.0); ALT/SGPT 46 U/L (9-52); AST/SGOT 26 U/L (14-36); BLOOD UREA NITROGEN 20 mg/dL (7-17); GFR NON-AFRICAN AMERICAN > 60
[2018-07-02 08:41] LABS: LYMPHOCYTE 2 % (20-40); MONOCYTE 1 % (0-10); NEUTROPHIL 97 % (50-75); TOTAL CELLS COUNTED 100
[2018-07-02 08:42] LABS: ANISOCYTOSIS SLIGHT; PLATELET ESTIMATE NORMAL (NORMAL)
[2018-07-02 08:43] LABS: HYPOCHROMIC SLIGHT; OVALOCYTES SLIGHT; POLYCHROMIC SLIGHT
[2018-07-02] MEDS: Pantoprazole 40 mg EC Tab PO SCH (09:34)
--- NOTE | 2018-07-02 11:19 | CP.PCM.PN ---
Subjective - Date & Time of Evaluation Date of Evaluation: 07/02/18 Time of Evaluation: 09:00 - Subjective Subjective: less confused breathing improved afeb Objective - Vital Signs/Intake and Output Vital Signs (last 24 hours): Temp Pulse Resp BP Pulse Ox 97.3 F L 58 L 23 110/68 98 07/02/18 08:00 07/02/18 08:00 07/02/18 10:36 07/02/18 07:01 07/02/18 08:00 Intake and Output: 07/02/18 07/02/18 06:59 18:59 Intake Total 500 Output Total 400 Balance 100 - Medications Medications: Current Medications Acetaminophen (Tylenol 325mg Tab) 975 mg PO ONCE PRN PRN Reason: Fever >100.4 F Last Admin: 06/24/18 22:28 Dose: 975 mg Albuterol/Ipratropium (Duoneb 3 Mg/0.5 Mg (3 Ml) Ud) 3 ml INH RQ6 [facility] Last Admin: 07/02/18 07:40 Dose: 3 ml Darunavir (Prezista) 600 mg PO BID [facility]; Protocol Last Admin: 07/02/18 09:34 Dose: 600 mg Diltiazem HCl (Cardizem) 30 mg PO Q8H [facility] Last Admin: 07/02/18 06:45 Dose: Not Given Emtricitabine/Tenofovir (Truvada 200 Mg-300 Mg) 1 tab PO Q24H [facility]; Protocol Last Admin: 07/01/18 17:12 Dose: 1 tab Guaifenesin/Dextromethorphan (Robitussin Dm) 5 ml PO Q4H PRN PRN Reason: Cough Last Admin: 06/29/18 18:03 Dose: 5 ml Trimethoprim/Sulfamethoxazole (240 mg/ Dextrose) 250 mls @ 250 mls/hr IVPB Q6H [facility]; Protocol Last Admin: 07/02/18 09:34 Dose: 250 mls/hr Ceftriaxone Sodium 2 gm/ (Sodium Chloride) 100 mls @ 100 mls/hr IVPB Q24H [facility]; Protocol Last Admin: 07/01/18 17:20 Dose: 100 mls/hr Methylprednisolone (Solu-Medrol) 40 mg IVP Q12H [facility] Last Admin: 07/01/18 23:48 Dose: 40 mg Olanzapine (Zyprexa) 10 mg PO QPM [facility] Last Admin: 07/01/18 17:13 Dose: 10 mg Pantoprazole Sodium (Protonix Ec Tab) 40 mg PO DAILY [facility] Last Admin: 07/02/18 09:34 Dose: 40 mg Paroxetine HCl (Paxil) 10 mg PO DAILY [facility] Last Admin: 07/02/18 09:34 Dose: 10 mg Ritonavir (Norvir) 100 mg PO BIDBS [facility]; Protocol Last Admin: 07/02/18 08:24 Dose: 100 mg Trazodone HCl (Desyrel) 50 mg PO [facility] Last Admin: 07/01/18 21:59 Dose: 50 mg - Labs Labs: 07/02/18 06:05 07/02/18 06:03 PT 13.4 SECONDS (9.7-12.2) H 06/24/18 22:42 INR 1.2 06/24/18 22:42 APTT 29 SECONDS (21-34) 06/24/18 22:42 - Constitutional Appears: Non-toxic, Chronically Ill - Head Exam Head Exam: NORMOCEPHALIC - Eye Exam Eye Exam: absent: Scleral icterus - ENT Exam ENT Exam: Mucous Membranes Dry - Neck Exam Neck Exam: absent: Lymphadenopathy - Respiratory Exam Respiratory Exam: Decreased Breath Sounds - Cardiovascular Exam Cardiovascular Exam: REGULAR RHYTHM - GI/Abdominal Exam GI & Abdominal Exam: Distended, Soft - Rectal Exam Rectal Exam: Deferred - Exam Exam: NORMAL INSPECTION - Extremities Exam Extremities Exam: absent: Pedal Edema - Back Exam Back Exam: absent: CVA tenderness (L), CVA tenderness (R) - Neurological Exam Neurological Exam: Alert, Awake - Psychiatric Exam Psychiatric exam: Depressed Assessment and Plan (1) Altered mental state Status: Acute (2) CHF (congestive heart failure) Status: Acute (3) Cocaine abuse Status: Acute (4) HIV (human immunodeficiency virus infection) Status: Acute (5) Pneumonia Status: Acute (6) SVT (supraventricular tachycardia) Status: Acute (7) Schizophrenia Status: Acute
--- NOTE | 2018-07-02 12:15 | CP.PCM.PN ---
Subjective - Date & Time of Evaluation Date of Evaluation: 07/02/18 Time of Evaluation: 09:00 - Subjective Subjective: patient seen and examined breathing better On high flow oxygen sat in the upper 90s Afebrile Awake and responsive Denies any chest pain Objective - Vital Signs/Intake and Output Vital Signs (last 24 hours): Temp Pulse Resp BP Pulse Ox 97.3 F L 68 23 110/68 98 07/02/18 08:00 07/02/18 08:05 07/02/18 10:36 07/02/18 07:01 07/02/18 08:00 Intake and Output: 07/02/18 07/02/18 06:59 18:59 Intake Total 500 Output Total 400 Balance 100 - Medications Medications: Current Medications Acetaminophen (Tylenol 325mg Tab) 975 mg PO ONCE PRN PRN Reason: Fever >100.4 F Last Admin: 06/24/18 22:28 Dose: 975 mg Albuterol/Ipratropium (Duoneb 3 Mg/0.5 Mg (3 Ml) Ud) 3 ml INH RQ6 [facility] Last Admin: 07/02/18 07:40 Dose: 3 ml Darunavir (Prezista) 600 mg PO BID [facility]; Protocol Last Admin: 07/02/18 09:34 Dose: 600 mg Diltiazem HCl (Cardizem) 30 mg PO Q8H [facility] Last Admin: 07/02/18 06:45 Dose: Not Given Emtricitabine/Tenofovir (Truvada 200 Mg-300 Mg) 1 tab PO Q24H [facility]; Protocol Last Admin: 07/01/18 17:12 Dose: 1 tab Guaifenesin/Dextromethorphan (Robitussin Dm) 5 ml PO Q4H PRN PRN Reason: Cough Last Admin: 06/29/18 18:03 Dose: 5 ml Trimethoprim/Sulfamethoxazole (240 mg/ Dextrose) 250 mls @ 250 mls/hr IVPB Q6H [facility]; Protocol Last Admin: 07/02/18 09:34 Dose: 250 mls/hr Ceftriaxone Sodium 2 gm/ (Sodium Chloride) 100 mls @ 100 mls/hr IVPB Q24H [facility]; Protocol Last Admin: 07/01/18 17:20 Dose: 100 mls/hr Methylprednisolone (Solu-Medrol) 40 mg IVP Q12H [facility] Last Admin: 07/01/18 23:48 Dose: 40 mg Olanzapine (Zyprexa) 10 mg PO QPM [facility] Last Admin: 07/01/18 17:13 Dose: 10 mg Pantoprazole Sodium (Protonix Ec Tab) 40 mg PO DAILY [facility] Last Admin: 07/02/18 09:34 Dose: 40 mg Paroxetine HCl (Paxil) 10 mg PO DAILY [facility] Last Admin: 07/02/18 09:34 Dose: 10 mg Ritonavir (Norvir) 100 mg PO BIDBS [facility]; Protocol Last Admin: 07/02/18 08:24 Dose: 100 mg Trazodone HCl (Desyrel) 50 mg PO HS [facility] Last Admin: 07/01/18 21:59 Dose: 50 mg - Labs Labs: 07/02/18 06:05 07/02/18 06:03 PT 13.4 SECONDS (9.7-12.2) H 06/24/18 22:42 INR 1.2 06/24/18 22:42 APTT 29 SECONDS (21-34) 06/24/18 22:42 - Head Exam Head Exam: ATRAUMATIC, NORMOCEPHALIC - ENT Exam ENT Exam: Mucous Membranes Moist - Neck Exam Neck Exam: Normal Inspection - Respiratory Exam Respiratory Exam: Decreased Breath Sounds, Rales - Cardiovascular Exam Cardiovascular Exam: REGULAR RHYTHM - GI/Abdominal Exam GI & Abdominal Exam: Soft, Normal Bowel Sounds - Extremities Exam Extremities Exam: Normal Inspection - Neurological Exam Neurological Exam: Alert Assessment and Plan (1) Pneumonia Assessment & Plan: Continue antibiotics Followup chest x-ray Followup ABG Continue nebuliser treatment switch to nasal cannula and discontine high flow oxygen Status: Acute (2) Respiratory failure Status: Acute (3) HIV (human immunodeficiency virus infection) Status: Acute
[2018-07-02] MEDS: MethylPREDNISolone 40 mg Vial IVP SCH (12:53)
[2018-07-02] MEDS: cefTRIAXone 2 GM in Sodium Chloride 0.9% 100 ML IVPB SCH (18:11)
[2018-07-02] MEDS: Emtricitabine-Tenofovir 200 mg-300 mg Tab PO SCH (18:12)
--- NOTE | 2018-07-02 18:31 | CP.PCM.PN ---
Subjective - Date & Time of Evaluation Date of Evaluation: 07/02/18 Time of Evaluation: 09:00 - Subjective Subjective: clinically same Objective - Vital Signs/Intake and Output Vital Signs (last 24 hours): Temp Pulse Resp BP Pulse Ox 97.7 F 95 H 22 100/61 97 07/02/18 14:22 07/02/18 15:59 07/02/18 14:22 07/02/18 14:22 07/02/18 14:22 Intake and Output: 07/02/18 07/02/18 06:59 18:59 Intake Total 500 Output Total 400 Balance 100 - Medications Medications: Current Medications Acetaminophen (Tylenol 325mg Tab) 975 mg PO ONCE PRN PRN Reason: Fever >100.4 F Last Admin: 06/24/18 22:28 Dose: 975 mg Albuterol/Ipratropium (Duoneb 3 Mg/0.5 Mg (3 Ml) Ud) 3 ml INH RQ6 [facility] Last Admin: 07/02/18 13:05 Dose: Not Given Darunavir (Prezista) 600 mg PO BID [facility]; Protocol Last Admin: 07/02/18 18:12 Dose: 600 mg Diltiazem HCl (Cardizem) 30 mg PO Q8H [facility] Last Admin: 07/02/18 13:38 Dose: 30 mg Emtricitabine/Tenofovir (Truvada 200 Mg-300 Mg) 1 tab PO Q24H [facility]; Protocol Last Admin: 07/02/18 18:12 Dose: 1 tab Guaifenesin/Dextromethorphan (Robitussin Dm) 5 ml PO Q4H PRN PRN Reason: Cough Last Admin: 06/29/18 18:03 Dose: 5 ml Trimethoprim/Sulfamethoxazole (240 mg/ Dextrose) 250 mls @ 250 mls/hr IVPB Q6H [facility]; Protocol Last Admin: 07/02/18 09:34 Dose: 250 mls/hr Ceftriaxone Sodium 2 gm/ (Sodium Chloride) 100 mls @ 100 mls/hr IVPB Q24H [facility]; Protocol Last Admin: 07/02/18 18:11 Dose: 100 mls/hr Methylprednisolone (Solu-Medrol) 40 mg IVP Q12H [facility] Last Admin: 07/02/18 12:53 Dose: 40 mg Olanzapine (Zyprexa) 10 mg PO QPM [facility] Last Admin: 07/01/18 17:13 Dose: 10 mg Pantoprazole Sodium (Protonix Ec Tab) 40 mg PO DAILY [facility] Last Admin: 07/02/18 09:34 Dose: 40 mg Paroxetine HCl (Paxil) 10 mg PO DAILY [facility] Last Admin: 07/02/18 09:34 Dose: 10 mg Ritonavir (Norvir) 100 mg PO BIDBS [facility]; Protocol Last Admin: 07/02/18 18:12 Dose: 100 mg Trazodone HCl (Desyrel) 50 mg PO HS [facility] Last Admin: 07/01/18 21:59 Dose: 50 mg - Labs Labs: 07/02/18 06:05 07/02/18 06:03 PT 13.4 SECONDS (9.7-12.2) H 06/24/18 22:42 INR 1.2 06/24/18 22:42 APTT 29 SECONDS (21-34) 06/24/18 22:42
--- NOTE | 2018-07-02 21:57 | CP.PCM.PN ---
Subjective - Date & Time of Evaluation Date of Evaluation: 07/02/18 Time of Evaluation: 17:20 - Subjective Subjective: Patient seen and evaluated Denies chest pain and dyspnea EP consult pending Objective - Vital Signs/Intake and Output Vital Signs (last 24 hours): Temp Pulse Resp BP Pulse Ox 97.7 F 95 H 22 100/61 97 07/02/18 14:22 07/02/18 15:59 07/02/18 14:22 07/02/18 14:22 07/02/18 14:22 Intake and Output: 07/02/18 07/03/18 18:59 06:59 Intake Total 350 Balance 350 - Medications Medications: Current Medications Acetaminophen (Tylenol 325mg Tab) 975 mg PO ONCE PRN PRN Reason: Fever >100.4 F Last Admin: 06/24/18 22:28 Dose: 975 mg Albuterol/Ipratropium (Duoneb 3 Mg/0.5 Mg (3 Ml) Ud) 3 ml INH RQ6 [facility] Last Admin: 07/02/18 13:05 Dose: Not Given Darunavir (Prezista) 600 mg PO BID [facility]; Protocol Last Admin: 07/02/18 18:12 Dose: 600 mg Diltiazem HCl (Cardizem) 30 mg PO Q8H [facility] Last Admin: 07/02/18 21:23 Dose: 30 mg Emtricitabine/Tenofovir (Truvada 200 Mg-300 Mg) 1 tab PO Q24H [facility]; Protocol Last Admin: 07/02/18 18:12 Dose: 1 tab Guaifenesin/Dextromethorphan (Robitussin Dm) 5 ml PO Q4H PRN PRN Reason: Cough Last Admin: 06/29/18 18:03 Dose: 5 ml Trimethoprim/Sulfamethoxazole (240 mg/ Dextrose) 250 mls @ 250 mls/hr IVPB Q6H [facility]; Protocol Last Admin: 07/02/18 19:28 Dose: 250 mls/hr Ceftriaxone Sodium 2 gm/ (Sodium Chloride) 100 mls @ 100 mls/hr IVPB Q24H [facility]; Protocol Last Admin: 07/02/18 18:11 Dose: 100 mls/hr Methylprednisolone (Solu-Medrol) 40 mg IVP Q12H [facility] Last Admin: 07/02/18 12:53 Dose: 40 mg Olanzapine (Zyprexa) 10 mg PO QPM [facility] Last Admin: 07/02/18 18:44 Dose: 10 mg Pantoprazole Sodium (Protonix Ec Tab) 40 mg PO DAILY [facility] Last Admin: 07/02/18 09:34 Dose: 40 mg Paroxetine HCl (Paxil) 10 mg PO DAILY [facility] Last Admin: 07/02/18 09:34 Dose: 10 mg Ritonavir (Norvir) 100 mg PO BIDBS [facility]; Protocol Last Admin: 07/02/18 18:12 Dose: 100 mg Trazodone HCl (Desyrel) 50 mg PO HS [facility] Last Admin: 07/02/18 21:23 Dose: 50 mg - Labs Labs: 07/02/18 06:05 07/02/18 06:03 PT 13.4 SECONDS (9.7-12.2) H 06/24/18 22:42 INR 1.2 06/24/18 22:42 APTT 29 SECONDS (21-34) 06/24/18 22:42
[2018-07-03] MEDS: MethylPREDNISolone 40 mg Vial IVP SCH ×2 (00:28→11:48)
[2018-07-03] MEDS: Albuterol-Ipratrop 3 mg / 0.5 (3 ml) UD INH SCH ×4 (01:26→21:34)
[2018-07-03] MEDS: Sulfamethoxazole/Trimethoprim 240 MG in Dextrose 5% In Water 250 ML IVPB SCH ×4 (04:59→22:29)
[2018-07-03] MEDS: Pantoprazole 40 mg EC Tab PO SCH (09:06)
--- NOTE | 2018-07-03 11:43 | CP.PCM.PN ---
Subjective - Date & Time of Evaluation Date of Evaluation: 07/03/18 Time of Evaluation: 09:30 - Subjective Subjective: clinically same Objective - Vital Signs/Intake and Output Vital Signs (last 24 hours): Temp Pulse Resp BP Pulse Ox 97.6 F 86 24 130/70 97 07/03/18 07:00 07/03/18 07:00 07/03/18 07:56 07/03/18 07:00 07/03/18 07:00 Intake and Output: 07/03/18 07/03/18 06:59 18:59 Intake Total 350 Balance 350 - Medications Medications: Current Medications Acetaminophen (Tylenol 325mg Tab) 975 mg PO ONCE PRN PRN Reason: Fever >100.4 F Last Admin: 06/24/18 22:28 Dose: 975 mg Albuterol/Ipratropium (Duoneb 3 Mg/0.5 Mg (3 Ml) Ud) 3 ml INH RQ6 [facility] Last Admin: 07/03/18 07:55 Dose: 3 ml Darunavir (Prezista) 600 mg PO BID [facility]; Protocol Last Admin: 07/03/18 09:06 Dose: 600 mg Diltiazem HCl (Cardizem) 30 mg PO Q8H [facility] Last Admin: 07/03/18 05:07 Dose: Not Given Emtricitabine/Tenofovir (Truvada 200 Mg-300 Mg) 1 tab PO Q24H [facility]; Protocol Last Admin: 07/02/18 18:12 Dose: 1 tab Guaifenesin/Dextromethorphan (Robitussin Dm) 5 ml PO Q4H PRN PRN Reason: Cough Last Admin: 06/29/18 18:03 Dose: 5 ml Trimethoprim/Sulfamethoxazole (240 mg/ Dextrose) 250 mls @ 250 mls/hr IVPB Q6H [facility]; Protocol Last Admin: 07/03/18 10:48 Dose: 250 mls/hr Ceftriaxone Sodium 2 gm/ (Sodium Chloride) 100 mls @ 100 mls/hr IVPB Q24H [facility]; Protocol Last Admin: 07/02/18 18:11 Dose: 100 mls/hr Methylprednisolone (Solu-Medrol) 40 mg IVP Q12H [facility] Last Admin: 07/03/18 00:28 Dose: 40 mg Olanzapine (Zyprexa) 10 mg PO QPM [facility] Last Admin: 07/02/18 18:44 Dose: 10 mg Pantoprazole Sodium (Protonix Ec Tab) 40 mg PO DAILY [facility] Last Admin: 07/03/18 09:06 Dose: 40 mg Paroxetine HCl (Paxil) 10 mg PO DAILY [facility] Last Admin: 07/03/18 09:06 Dose: 10 mg Ritonavir (Norvir) 100 mg PO BIDBS [facility]; Protocol Last Admin: 07/03/18 08:39 Dose: 100 mg Trazodone HCl (Desyrel) 50 mg PO HS [facility] Last Admin: 07/02/18 21:23 Dose: 50 mg - Labs Labs: 07/02/18 06:05 07/02/18 06:03 PT 13.4 SECONDS (9.7-12.2) H 06/24/18 22:42 INR 1.2 06/24/18 22:42 APTT 29 SECONDS (21-34) 06/24/18 22:42 - Constitutional Appears: Well - Head Exam Head Exam: ATRAUMATIC, NORMAL INSPECTION, NORMOCEPHALIC - Eye Exam Eye Exam: EOMI, Normal appearance, PERRL Pupil Exam: NORMAL ACCOMODATION, PERRL - ENT Exam ENT Exam: Mucous Membranes Moist, Normal Exam - Neck Exam Neck Exam: Full ROM, Normal Inspection. absent: Lymphadenopathy - Respiratory Exam Respiratory Exam: Decreased Breath Sounds - Cardiovascular Exam Cardiovascular Exam: REGULAR RHYTHM, +S1, +S2 - GI/Abdominal Exam GI & Abdominal Exam: Soft, Diminished Bowel Sounds - Rectal Exam Rectal Exam: Deferred
--- NOTE | 2018-07-03 12:31 | CP.PCM.PN ---
Subjective - Date & Time of Evaluation Date of Evaluation: 07/03/18 Time of Evaluation: 10:00 - Subjective Subjective: improving Objective - Vital Signs/Intake and Output Vital Signs (last 24 hours): Temp Pulse Resp BP Pulse Ox 97.6 F 86 24 130/70 92 L 07/03/18 07:00 07/03/18 07:00 07/03/18 07:56 07/03/18 07:00 07/03/18 11:46 Intake and Output: 07/03/18 07/03/18 06:59 18:59 Intake Total 350 Balance 350 - Medications Medications: Current Medications Acetaminophen (Tylenol 325mg Tab) 975 mg PO ONCE PRN PRN Reason: Fever >100.4 F Last Admin: 06/24/18 22:28 Dose: 975 mg Albuterol/Ipratropium (Duoneb 3 Mg/0.5 Mg (3 Ml) Ud) 3 ml INH RQ6 [facility] Last Admin: 07/03/18 07:55 Dose: 3 ml Darunavir (Prezista) 600 mg PO BID [facility]; Protocol Last Admin: 07/03/18 09:06 Dose: 600 mg Diltiazem HCl (Cardizem) 30 mg PO Q8H [facility] Last Admin: 07/03/18 05:07 Dose: Not Given Emtricitabine/Tenofovir (Truvada 200 Mg-300 Mg) 1 tab PO Q24H [facility]; Protocol Last Admin: 07/02/18 18:12 Dose: 1 tab Guaifenesin/Dextromethorphan (Robitussin Dm) 5 ml PO Q4H PRN PRN Reason: Cough Last Admin: 06/29/18 18:03 Dose: 5 ml Trimethoprim/Sulfamethoxazole (240 mg/ Dextrose) 250 mls @ 250 mls/hr IVPB Q6H [facility]; Protocol Last Admin: 07/03/18 10:48 Dose: 250 mls/hr Ceftriaxone Sodium 2 gm/ (Sodium Chloride) 100 mls @ 100 mls/hr IVPB Q24H [facility]; Protocol Last Admin: 07/02/18 18:11 Dose: 100 mls/hr Methylprednisolone (Solu-Medrol) 40 mg IVP Q12H [facility] Last Admin: 07/03/18 11:48 Dose: 40 mg Olanzapine (Zyprexa) 10 mg PO QPM [facility] Last Admin: 07/02/18 18:44 Dose: 10 mg Pantoprazole Sodium (Protonix Ec Tab) 40 mg PO DAILY [facility] Last Admin: 07/03/18 09:06 Dose: 40 mg Paroxetine HCl (Paxil) 10 mg PO DAILY [facility] Last Admin: 07/03/18 09:06 Dose: 10 mg Ritonavir (Norvir) 100 mg PO BIDBS [facility]; Protocol Last Admin: 07/03/18 08:39 Dose: 100 mg Trazodone HCl (Desyrel) 50 mg PO HS [facility] Last Admin: 07/02/18 21:23 Dose: 50 mg - Labs Labs: 07/02/18 06:05 07/02/18 06:03 PT 13.4 SECONDS (9.7-12.2) H 06/24/18 22:42 INR 1.2 06/24/18 22:42 APTT 29 SECONDS (21-34) 06/24/18 22:42 - Constitutional Appears: Non-toxic, Chronically Ill - Head Exam Head Exam: NORMOCEPHALIC - Eye Exam Eye Exam: absent: Scleral icterus - ENT Exam ENT Exam: Mucous Membranes Dry - Neck Exam Neck Exam: absent: Lymphadenopathy - Respiratory Exam Respiratory Exam: Decreased Breath Sounds - Cardiovascular Exam Cardiovascular Exam: REGULAR RHYTHM - GI/Abdominal Exam GI & Abdominal Exam: Distended, Soft - Rectal Exam Rectal Exam: Deferred - Exam Exam: NORMAL INSPECTION - Extremities Exam Extremities Exam: absent: Pedal Edema - Back Exam Back Exam: absent: CVA tenderness (L), CVA tenderness (R) - Neurological Exam Neurological Exam: Alert, Awake - Psychiatric Exam Psychiatric exam: Normal Mood Assessment and Plan (1) Altered mental state Status: Acute (2) CHF (congestive heart failure) Status: Acute (3) Cocaine abuse Status: Acute (4) HIV (human immunodeficiency virus infection) Status: Acute (5) Pneumonia Status: Acute (6) SVT (supraventricular tachycardia) Status: Acute (7) Schizophrenia Status: Acute
--- NOTE | 2018-07-03 16:03 | CP.PCM.PN ---
Subjective - Date & Time of Evaluation Date of Evaluation: 07/03/18 Time of Evaluation: 10:00 - Subjective Subjective: patient seen and examined Breathing and cough much improved On nasal cannula Objective - Vital Signs/Intake and Output Vital Signs (last 24 hours): Temp Pulse Resp BP Pulse Ox 97.7 F 90 18 103/57 L 98 07/03/18 15:00 07/03/18 15:00 07/03/18 15:00 07/03/18 15:00 07/03/18 15:00 Intake and Output: 07/03/18 07/03/18 06:59 18:59 Intake Total 350 550 Balance 350 550 - Medications Medications: Current Medications Acetaminophen (Tylenol 325mg Tab) 975 mg PO ONCE PRN PRN Reason: Fever >100.4 F Last Admin: 06/24/18 22:28 Dose: 975 mg Albuterol/Ipratropium (Duoneb 3 Mg/0.5 Mg (3 Ml) Ud) 3 ml INH RQ6 [facility] Last Admin: 07/03/18 13:38 Dose: 3 ml Darunavir (Prezista) 600 mg PO BID [facility]; Protocol Last Admin: 07/03/18 09:06 Dose: 600 mg Diltiazem HCl (Cardizem) 30 mg PO Q8H [facility] Last Admin: 07/03/18 13:37 Dose: 30 mg Emtricitabine/Tenofovir (Truvada 200 Mg-300 Mg) 1 tab PO Q24H [facility]; Protocol Last Admin: 07/02/18 18:12 Dose: 1 tab Guaifenesin/Dextromethorphan (Robitussin Dm) 5 ml PO Q4H PRN PRN Reason: Cough Last Admin: 06/29/18 18:03 Dose: 5 ml Trimethoprim/Sulfamethoxazole (240 mg/ Dextrose) 250 mls @ 250 mls/hr IVPB Q6H [facility]; Protocol Last Admin: 07/03/18 10:48 Dose: 250 mls/hr Ceftriaxone Sodium 2 gm/ (Sodium Chloride) 100 mls @ 100 mls/hr IVPB Q24H [facility]; Protocol Last Admin: 07/02/18 18:11 Dose: 100 mls/hr Methylprednisolone (Solu-Medrol) 40 mg IVP Q12H [facility] Last Admin: 07/03/18 11:48 Dose: 40 mg Olanzapine (Zyprexa) 10 mg PO QPM [facility] Last Admin: 07/02/18 18:44 Dose: 10 mg Pantoprazole Sodium (Protonix Ec Tab) 40 mg PO DAILY [facility] Last Admin: 07/03/18 09:06 Dose: 40 mg Paroxetine HCl (Paxil) 10 mg PO DAILY [facility] Last Admin: 07/03/18 09:06 Dose: 10 mg Ritonavir (Norvir) 100 mg PO BIDBS [facility]; Protocol Last Admin: 07/03/18 08:39 Dose: 100 mg Trazodone HCl (Desyrel) 50 mg PO HS [facility] Last Admin: 07/02/18 21:23 Dose: 50 mg - Labs Labs: 07/02/18 06:05 07/02/18 06:03 PT 13.4 SECONDS (9.7-12.2) H 06/24/18 22:42 INR 1.2 06/24/18 22:42 APTT 29 SECONDS (21-34) 06/24/18 22:42 - Head Exam Head Exam: ATRAUMATIC, NORMOCEPHALIC - ENT Exam ENT Exam: Mucous Membranes Moist - Neck Exam Neck Exam: Normal Inspection - Respiratory Exam Respiratory Exam: Rales - Cardiovascular Exam Cardiovascular Exam: REGULAR RHYTHM - GI/Abdominal Exam GI & Abdominal Exam: Soft, Normal Bowel Sounds Assessment and Plan (1) Pneumonia Assessment & Plan: Antibiotics but infectious disease Continue oxygen follow-up chest x-ray Physical therapy Status: Acute (2) Respiratory failure Status: Acute (3) HIV (human immunodeficiency virus infection) Status: Acute
[2018-07-03] MEDS: Emtricitabine-Tenofovir 200 mg-300 mg Tab PO SCH (16:18)
[2018-07-03] MEDS: cefTRIAXone 2 GM in Sodium Chloride 0.9% 100 ML IVPB SCH (16:22)
[2018-07-03] MEDS: Vitamins A & D Oint UD Foilpak TOP SCH (17:24)
--- NOTE | 2018-07-03 19:14 | CARD ---
APPROVED REPORT Date of service: 06/26/2018 EKG Measurement Heart [id number] <Conclusion> Normal sinus rhythm Normal ECG
[2018-07-03] MEDS: guaiFENesin DM 100 mg-10 mg/5 ml UD PO PRN (19:27)
--- NOTE | 2018-07-03 20:53 | CP.PCM.PN ---
Subjective - Date & Time of Evaluation Date of Evaluation: 07/03/18 Time of Evaluation: 17:20 - Subjective Subjective: patient seen and examined Denies chest pain and dyspnea Physical Examination - Vital Signs/Intake and Output Vital Signs (last 24 hours): Temp Pulse Resp BP Pulse Ox 97.7 F 90 18 103/57 L 98 07/03/18 15:00 07/03/18 15:00 07/03/18 15:00 07/03/18 15:00 07/03/18 15:00 Intake and Output: 07/03/18 07/03/18 06:59 18:59 Intake Total 350 550 Balance 350 550 - Medications Medications: Current Medications Acetaminophen (Tylenol 325mg Tab) 975 mg PO ONCE PRN PRN Reason: Fever >100.4 F Last Admin: 06/24/18 22:28 Dose: 975 mg Albuterol/Ipratropium (Duoneb 3 Mg/0.5 Mg (3 Ml) Ud) 3 ml INH RQ6 [facility] Last Admin: 07/03/18 13:38 Dose: 3 ml Darunavir (Prezista) 600 mg PO BID [facility]; Protocol Last Admin: 07/03/18 09:06 Dose: 600 mg Diltiazem HCl (Cardizem) 30 mg PO Q8H [facility] Last Admin: 07/03/18 13:37 Dose: 30 mg Emtricitabine/Tenofovir (Truvada 200 Mg-300 Mg) 1 tab PO Q24H [facility]; Protocol Last Admin: 07/02/18 18:12 Dose: 1 tab Guaifenesin/Dextromethorphan (Robitussin Dm) 5 ml PO Q4H PRN PRN Reason: Cough Last Admin: 06/29/18 18:03 Dose: 5 ml Trimethoprim/Sulfamethoxazole (240 mg/ Dextrose) 250 mls @ 250 mls/hr IVPB Q6H [facility]; Protocol Last Admin: 07/03/18 10:48 Dose: 250 mls/hr Ceftriaxone Sodium 2 gm/ (Sodium Chloride) 100 mls @ 100 mls/hr IVPB Q24H [facility]; Protocol Last Admin: 07/02/18 18:11 Dose: 100 mls/hr Methylprednisolone (Solu-Medrol) 40 mg IVP Q12H [facility] Last Admin: 07/03/18 11:48 Dose: 40 mg Olanzapine (Zyprexa) 10 mg PO QPM [facility] Last Admin: 07/02/18 18:44 Dose: 10 mg Pantoprazole Sodium (Protonix Ec Tab) 40 mg PO DAILY [facility] Last Admin: 07/03/18 09:06 Dose: 40 mg Paroxetine HCl (Paxil) 10 mg PO DAILY [facility] Last Admin: 07/03/18 09:06 Dose: 10 mg Ritonavir (Norvir) 100 mg PO BIDBS [facility]; Protocol Last Admin: 07/03/18 08:39 Dose: 100 mg Trazodone HCl (Desyrel) 50 mg PO HS [facility] Last Admin: 07/02/18 21:23 Dose: 50 mg - Labs Labs: 07/02/18 06:05 07/02/18 06:03 PT 13.4 SECONDS (9.7-12.2) H 06/24/18 22:42 INR 1.2 06/24/18 22:42 APTT 29 SECONDS (21-34) 06/24/18 22:42 - Head Exam Head Exam: ATRAUMATIC, NORMOCEPHALIC - ENT Exam ENT Exam: Mucous Membranes Moist - Neck Exam Neck Exam: Normal Inspection - Respiratory Exam Respiratory Exam: Rales - Cardiovascular Exam Cardiovascular Exam: REGULAR RHYTHM - GI/Abdominal Exam GI & Abdominal Exam: Soft, Normal Bowel Sounds Assessment and Plan (1) Pneumonia Assessment & Plan: Antibiotics but infectious disease Continue oxygen follow-up chest x-ray Physical therapy Status: Acute (2) Respiratory failure Status: Acute (3) HIV (human immunodeficiency virus infection) Status: Acute (4) s/p SVT Status: EP eval from Dr. Faust pending Objective - Vital Signs/Intake and Output Vital Signs (last 24 hours): Temp Pulse Resp BP Pulse Ox 97.7 F 86 18 103/57 L 98 07/03/18 15:00 07/03/18 19:43 07/03/18 15:00 07/03/18 15:00 07/03/18 15:00 Intake and Output: 07/03/18 07/04/18 18:59 06:59 Intake Total 550 Balance 550 - Medications Medications: Current Medications Acetaminophen (Tylenol 325mg Tab) 975 mg PO ONCE PRN PRN Reason: Fever >100.4 F Last Admin: 06/24/18 22:28 Dose: 975 mg Albuterol/Ipratropium (Duoneb 3 Mg/0.5 Mg (3 Ml) Ud) 3 ml INH RQ6 [facility] Last Admin: 07/03/18 13:38 Dose: 3 ml Darunavir (Prezista) 600 mg PO BID [facility]; Protocol Last Admin: 07/03/18 17:24 Dose: 600 mg Diltiazem HCl (Cardizem) 30 mg PO Q8H [facility] Last Admin: 07/03/18 13:37 Dose: 30 mg Emtricitabine/Tenofovir (Truvada 200 Mg-300 Mg) 1 tab PO Q24H [facility]; Protocol Last Admin: 07/03/18 16:18 Dose: 1 tab Guaifenesin/Dextromethorphan (Robitussin Dm) 5 ml PO Q4H PRN PRN Reason: Cough Last Admin: 07/03/18 19:27 Dose: 5 ml Trimethoprim/Sulfamethoxazole (240 mg/ Dextrose) 250 mls @ 250 mls/hr IVPB Q6H [facility]; Protocol Last Admin: 07/03/18 18:15 Dose: 250 mls/hr Ceftriaxone Sodium 2 gm/ (Sodium Chloride) 100 mls @ 100 mls/hr IVPB Q24H [facility]; Protocol Last Admin: 07/03/18 16:22 Dose: 100 mls/hr Methylprednisolone (Solu-Medrol) 40 mg IVP Q12H [facility] Last Admin: 07/03/18 11:48 Dose: 40 mg Olanzapine (Zyprexa) 10 mg PO QPM [facility] Last Admin: 07/03/18 17:24 Dose: 10 mg Pantoprazole Sodium (Protonix Ec Tab) 40 mg PO DAILY [facility] Last Admin: 07/03/18 09:06 Dose: 40 mg Paroxetine HCl (Paxil) 10 mg PO DAILY [facility] Last Admin: 07/03/18 09:06 Dose: 10 mg Ritonavir (Norvir) 100 mg PO BIDBS [facility]; Protocol Last Admin: 07/03/18 16:18 Dose: 100 mg Trazodone HCl (Desyrel) 50 mg PO HS [facility] Last Admin: 07/02/18 21:23 Dose: 50 mg Vitamin A (Vitamin A & D Oint Ud Foilpak) 1 ea TOP DAILY [facility] Last Admin: 07/03/18 17:24 Dose: 1 ea - Labs Labs: 07/02/18 06:05 07/02/18 06:03 PT 13.4 SECONDS (9.7-12.2) H 06/24/18 22:42 INR 1.2 06/24/18 22:42 APTT 29 SECONDS (21-34) 06/24/18 22:42
[2018-07-04] MEDS: MethylPREDNISolone 40 mg Vial IVP SCH ×2 (00:09→12:29)
[2018-07-04] MEDS: Albuterol-Ipratrop 3 mg / 0.5 (3 ml) UD INH SCH ×4 (02:51→20:23)
[2018-07-04] MEDS: Sulfamethoxazole/Trimethoprim 240 MG in Dextrose 5% In Water 250 ML IVPB SCH ×4 (03:11→22:56)
[2018-07-04 07:32] LABS: HEMOGLOBIN 11.2 g/dL (11.0-16.0); LYMPH # 0.3 K/uL (1.0-4.3); LYMPH % 2.5 % (20.0-40.0); MEAN CELL VOLUME 87.3 fL (81.0-99.0); MEAN CORPUSCULAR HEMOGLOBIN 28.5 pg (27.0-31.0); MEAN CORPUSCULAR HGB CONC 32.7 g/dL (33.0-37.0); MEAN PLATELET VOLUME 7.2 fL (7.2-11.7); MONO # 0.2 K/uL (0.0-0.8); MONO % 1.5 % (0.0-10.0); NEUT # 10.3 K/uL (1.8-7.0); NRBC % 0.1 % (0.0-2.0); PLATELET COUNT 209 K/uL (130-400); RBC 3.93 Mil/uL (3.80-5.20); RED CELL DISTRIBUTION WIDTH 15.7 % (11.5-14.5); WHITE BLOOD COUNT 10.7 K/uL (4.8-10.8)
[2018-07-04 07:53] LABS: ALB/GLOB RATIO 0.8 (1.0-2.1); ALBUMIN 2.4 g/dL (3.5-5.0); ALT/SGPT 35 U/L (9-52); AST/SGOT 18 U/L (14-36); BLOOD UREA NITROGEN 22 mg/dL (7-17); CALCIUM 8.9 mg/dl (8.6-10.4); GFR NON-AFRICAN AMERICAN > 60
--- NOTE | 2018-07-04 09:22 | CP.PCM.PN ---
<Sharmin Live - Last Filed: 07/04/18 09:24> Subjective - Date & Time of Evaluation Date of Evaluation: 07/04/18 Time of Evaluation: 08:00 - Subjective Subjective: Cardiology Follow Up Note Patient seen and examined at bedside. Patient reports she feels fine today. Denied chest pain, palpitations, or shortness of breath. Objective - Vital Signs/Intake and Output Vital Signs (last 24 hours): Temp Pulse Resp BP Pulse Ox 97.8 F 90 20 106/59 L 98 07/04/18 08:00 07/04/18 08:00 07/04/18 08:00 07/04/18 08:00 07/04/18 08:00 Intake and Output: 07/04/18 07/04/18 06:59 18:59 Intake Total 650 Balance 650 - Medications Medications: Current Medications Acetaminophen (Tylenol 325mg Tab) 975 mg PO ONCE PRN PRN Reason: Fever >100.4 F Last Admin: 06/24/18 22:28 Dose: 975 mg Albuterol/Ipratropium (Duoneb 3 Mg/0.5 Mg (3 Ml) Ud) 3 ml INH RQ6 [facility] Last Admin: 07/04/18 07:24 Dose: 3 ml Darunavir (Prezista) 600 mg PO BID [facility]; Protocol Last Admin: 07/03/18 17:24 Dose: 600 mg Diltiazem HCl (Cardizem) 30 mg PO Q8H [facility] Last Admin: 07/04/18 05:15 Dose: 30 mg Emtricitabine/Tenofovir (Truvada 200 Mg-300 Mg) 1 tab PO Q24H [facility]; Protocol Last Admin: 07/03/18 16:18 Dose: 1 tab Guaifenesin/Dextromethorphan (Robitussin Dm) 5 ml PO Q4H PRN PRN Reason: Cough Last Admin: 07/03/18 19:27 Dose: 5 ml Trimethoprim/Sulfamethoxazole (240 mg/ Dextrose) 250 mls @ 250 mls/hr IVPB Q6H [facility]; Protocol Last Admin: 07/04/18 03:11 Dose: 250 mls/hr Ceftriaxone Sodium 2 gm/ (Sodium Chloride) 100 mls @ 100 mls/hr IVPB Q24H [facility]; Protocol Last Admin: 07/03/18 16:22 Dose: 100 mls/hr Methylprednisolone (Solu-Medrol) 40 mg IVP Q12H [facility] Last Admin: 07/04/18 00:09 Dose: 40 mg Olanzapine (Zyprexa) 10 mg PO QPM [facility] Last Admin: 07/03/18 17:24 Dose: 10 mg Pantoprazole Sodium (Protonix Ec Tab) 40 mg PO DAILY [facility] Last Admin: 07/03/18 09:06 Dose: 40 mg Paroxetine HCl (Paxil) 10 mg PO DAILY [facility] Last Admin: 07/03/18 09:06 Dose: 10 mg Ritonavir (Norvir) 100 mg PO BIDBS [facility]; Protocol Last Admin: 07/04/18 08:30 Dose: 100 mg Trazodone HCl (Desyrel) 50 mg PO HS [facility] Last Admin: 07/03/18 21:33 Dose: 50 mg Vitamin A (Vitamin A & D Oint Ud Foilpak) 1 ea TOP DAILY [facility] Last Admin: 07/03/18 17:24 Dose: 1 ea - Labs Labs: 07/04/18 07:12 07/04/18 07:12 PT 13.4 SECONDS (9.7-12.2) H 06/24/18 22:42 INR 1.2 06/24/18 22:42 APTT 29 SECONDS (21-34) 06/24/18 22:42 - Constitutional Appears: No Acute Distress - Head Exam Head Exam: NORMAL INSPECTION, NORMOCEPHALIC - Eye Exam Eye Exam: Normal appearance Pupil Exam: NORMAL ACCOMODATION - ENT Exam ENT Exam: Mucous Membranes Moist - Respiratory Exam Respiratory Exam: Decreased Breath Sounds - Cardiovascular Exam Cardiovascular Exam: +S1, +S2. absent: Tachycardia - GI/Abdominal Exam GI & Abdominal Exam: Soft, Normal Bowel Sounds - Extremities Exam Extremities Exam: Normal Inspection. absent: Pedal Edema, Tenderness - Neurological Exam Neurological Exam: Alert, Awake, Oriented x3 - Psychiatric Exam Psychiatric exam: Normal Affect, Normal Mood - Skin Skin Exam: Dry, Intact, Normal Color, Warm Assessment and Plan - Assessment and Plan (Free Text) Plan: SVTs Management: - EP consulted, pending Dr. Faust recommendations - Patient has known history of cocaine use - Beta bia was changed to Cardizem, due to cocaine history Imaging: - EKG 06/24/18: noted SVTs at rate of 206 bpm - Repeat EKG 06/26/18: NSR at 84 BPM Case discussed with Sharmin Alvares DO, PGY2 <Wong Abrams - Last Filed: 07/04/18 19:12> Objective - Vital Signs/Intake and Output Vital Signs (last 24 hours): Temp Pulse Resp BP Pulse Ox 97.9 F 90 18 103/62 97 07/04/18 15:00 07/04/18 15:00 07/04/18 15:00 07/04/18 15:00 07/04/18 15:00 - Medications Medications: Current Medications Acetaminophen (Tylenol 325mg Tab) 975 mg PO ONCE PRN PRN Reason: Fever >100.4 F Last Admin: 06/24/18 22:28 Dose: 975 mg Albuterol/Ipratropium (Duoneb 3 Mg/0.5 Mg (3 Ml) Ud) 3 ml INH RQ6 [facility] Last Admin: 07/04/18 13:15 Dose: Not Given Darunavir (Prezista) 600 mg PO BID [facility]; Protocol Last Admin: 07/04/18 18:06 Dose: 600 mg Diltiazem HCl (Cardizem) 30 mg PO Q8H [facility] Last Admin: 07/04/18 13:38 Dose: Not Given Emtricitabine/Tenofovir (Truvada 200 Mg-300 Mg) 1 tab PO Q24H [facility]; Protocol Last Admin: 07/04/18 16:22 Dose: 1 tab Guaifenesin/Dextromethorphan (Robitussin Dm) 5 ml PO Q4H PRN PRN Reason: Cough Last Admin: 07/03/18 19:27 Dose: 5 ml Trimethoprim/Sulfamethoxazole (240 mg/ Dextrose) 250 mls @ 250 mls/hr IVPB Q6H [facility]; Protocol Last Admin: 07/04/18 16:21 Dose: 250 mls/hr Ceftriaxone Sodium 2 gm/ (Sodium Chloride) 100 mls @ 100 mls/hr IVPB Q24H [facility]; Protocol Last Admin: 07/04/18 18:01 Dose: 100 mls/hr Methylprednisolone (Solu-Medrol) 40 mg IVP Q12H [facility] Last Admin: 07/04/18 12:29 Dose: 40 mg Olanzapine (Zyprexa) 10 mg PO QPM [facility] Last Admin: 07/04/18 18:01 Dose: 10 mg Pantoprazole Sodium (Protonix Ec Tab) 40 mg PO DAILY [facility] Last Admin: 07/04/18 10:32 Dose: 40 mg Paroxetine HCl (Paxil) 10 mg PO DAILY [facility] Last Admin: 07/04/18 10:32 Dose: 10 mg Ritonavir (Norvir) 100 mg PO BIDBS [facility]; Protocol Last Admin: 07/04/18 16:22 Dose: 100 mg Trazodone HCl (Desyrel) 50 mg PO HS [facility] Last Admin: 07/03/18 21:33 Dose: 50 mg Vitamin A (Vitamin A & D Oint Ud Foilpak) 1 ea TOP DAILY [facility] Last Admin: 07/04/18 10:31 Dose: 1 ea - Labs Labs: 07/04/18 07:12 07/04/18 07:12 PT 13.4 SECONDS (9.7-12.2) H 06/24/18 22:42 INR 1.2 06/24/18 22:42 APTT 29 SECONDS (21-34) 06/24/18 22:42 Assessment and Plan - Assessment and Plan (Free Text) Plan: Patient seen and evaluated personally by me Plan of care d/w the medical planner and as documented
[2018-07-04 10:13] LABS: ANISOCYTOSIS SLIGHT; LYMPHOCYTE 1 % (20-40); MONOCYTE 2 % (0-10); NEUTROPHIL 97 % (50-75); PLATELET ESTIMATE NORMAL (NORMAL); POLYCHROMIC SLIGHT; TARGET CELLS SLIGHT; TOTAL CELLS COUNTED 100
[2018-07-04] MEDS: Vitamins A & D Oint UD Foilpak TOP SCH (10:31)
[2018-07-04] MEDS: Pantoprazole 40 mg EC Tab PO SCH (10:32)
--- NOTE | 2018-07-04 14:10 | CP.PCM.PN ---
Subjective - Date & Time of Evaluation Date of Evaluation: 07/04/18 Time of Evaluation: 10:15 - Subjective Subjective: clinically same Objective - Vital Signs/Intake and Output Vital Signs (last 24 hours): Temp Pulse Resp BP Pulse Ox 97.8 F 89 20 97/55 L 98 07/04/18 08:00 07/04/18 13:38 07/04/18 08:00 07/04/18 13:38 07/04/18 08:00 Intake and Output: 07/04/18 07/04/18 06:59 18:59 Intake Total 650 Balance 650 - Medications Medications: Current Medications Acetaminophen (Tylenol 325mg Tab) 975 mg PO ONCE PRN PRN Reason: Fever >100.4 F Last Admin: 06/24/18 22:28 Dose: 975 mg Albuterol/Ipratropium (Duoneb 3 Mg/0.5 Mg (3 Ml) Ud) 3 ml INH RQ6 [facility] Last Admin: 07/04/18 13:15 Dose: Not Given Darunavir (Prezista) 600 mg PO BID [facility]; Protocol Last Admin: 07/04/18 10:32 Dose: 600 mg Diltiazem HCl (Cardizem) 30 mg PO Q8H [facility] Last Admin: 07/04/18 13:38 Dose: Not Given Emtricitabine/Tenofovir (Truvada 200 Mg-300 Mg) 1 tab PO Q24H [facility]; Protocol Last Admin: 07/03/18 16:18 Dose: 1 tab Guaifenesin/Dextromethorphan (Robitussin Dm) 5 ml PO Q4H PRN PRN Reason: Cough Last Admin: 07/03/18 19:27 Dose: 5 ml Trimethoprim/Sulfamethoxazole (240 mg/ Dextrose) 250 mls @ 250 mls/hr IVPB Q6H [facility]; Protocol Last Admin: 07/04/18 10:32 Dose: 250 mls/hr Ceftriaxone Sodium 2 gm/ (Sodium Chloride) 100 mls @ 100 mls/hr IVPB Q24H [facility]; Protocol Last Admin: 07/03/18 16:22 Dose: 100 mls/hr Methylprednisolone (Solu-Medrol) 40 mg IVP Q12H [facility] Last Admin: 07/04/18 12:29 Dose: 40 mg Olanzapine (Zyprexa) 10 mg PO QPM [facility] Last Admin: 07/03/18 17:24 Dose: 10 mg Pantoprazole Sodium (Protonix Ec Tab) 40 mg PO DAILY [facility] Last Admin: 07/04/18 10:32 Dose: 40 mg Paroxetine HCl (Paxil) 10 mg PO DAILY [facility] Last Admin: 07/04/18 10:32 Dose: 10 mg Ritonavir (Norvir) 100 mg PO BIDBS [facility]; Protocol Last Admin: 07/04/18 08:30 Dose: 100 mg Trazodone HCl (Desyrel) 50 mg PO HS [facility] Last Admin: 07/03/18 21:33 Dose: 50 mg Vitamin A (Vitamin A & D Oint Ud Foilpak) 1 ea TOP DAILY [facility] Last Admin: 07/04/18 10:31 Dose: 1 ea - Labs Labs: 07/04/18 07:12 07/04/18 07:12 PT 13.4 SECONDS (9.7-12.2) H 06/24/18 22:42 INR 1.2 06/24/18 22:42 APTT 29 SECONDS (21-34) 06/24/18 22:42 - Constitutional Appears: Well - Head Exam Head Exam: ATRAUMATIC, NORMAL INSPECTION, NORMOCEPHALIC - Eye Exam Eye Exam: EOMI, Normal appearance, PERRL Pupil Exam: NORMAL ACCOMODATION, PERRL - ENT Exam ENT Exam: Mucous Membranes Moist, Normal Exam - Neck Exam Neck Exam: Full ROM, Normal Inspection. absent: Lymphadenopathy - Respiratory Exam Respiratory Exam: Decreased Breath Sounds - Cardiovascular Exam Cardiovascular Exam: REGULAR RHYTHM, +S1, +S2 - GI/Abdominal Exam GI & Abdominal Exam: Soft, Diminished Bowel Sounds - Rectal Exam Rectal Exam: Deferred
--- NOTE | 2018-07-04 15:50 | CP.PCM.PN ---
Subjective - Date & Time of Evaluation Date of Evaluation: 07/04/18 Time of Evaluation: 11:50 - Subjective Subjective: patient seen and examined incontinence of feces Breathing better Afebrile EPS consult. For SVT Objective - Vital Signs/Intake and Output Vital Signs (last 24 hours): Temp Pulse Resp BP Pulse Ox 97.8 F 89 20 97/55 L 98 07/04/18 08:00 07/04/18 13:38 07/04/18 08:00 07/04/18 13:38 07/04/18 08:00 Intake and Output: 07/04/18 07/04/18 06:59 18:59 Intake Total 650 Balance 650 - Medications Medications: Current Medications Acetaminophen (Tylenol 325mg Tab) 975 mg PO ONCE PRN PRN Reason: Fever >100.4 F Last Admin: 06/24/18 22:28 Dose: 975 mg Albuterol/Ipratropium (Duoneb 3 Mg/0.5 Mg (3 Ml) Ud) 3 ml INH RQ6 [facility] Last Admin: 07/04/18 13:15 Dose: Not Given Darunavir (Prezista) 600 mg PO BID [facility]; Protocol Last Admin: 07/04/18 10:32 Dose: 600 mg Diltiazem HCl (Cardizem) 30 mg PO Q8H [facility] Last Admin: 07/04/18 13:38 Dose: Not Given Emtricitabine/Tenofovir (Truvada 200 Mg-300 Mg) 1 tab PO Q24H [facility]; Protocol Last Admin: 07/03/18 16:18 Dose: 1 tab Guaifenesin/Dextromethorphan (Robitussin Dm) 5 ml PO Q4H PRN PRN Reason: Cough Last Admin: 07/03/18 19:27 Dose: 5 ml Trimethoprim/Sulfamethoxazole (240 mg/ Dextrose) 250 mls @ 250 mls/hr IVPB Q6H [facility]; Protocol Last Admin: 07/04/18 10:32 Dose: 250 mls/hr Ceftriaxone Sodium 2 gm/ (Sodium Chloride) 100 mls @ 100 mls/hr IVPB Q24H [facility]; Protocol Last Admin: 07/03/18 16:22 Dose: 100 mls/hr Methylprednisolone (Solu-Medrol) 40 mg IVP Q12H [facility] Last Admin: 07/04/18 12:29 Dose: 40 mg Olanzapine (Zyprexa) 10 mg PO QPM [facility] Last Admin: 07/03/18 17:24 Dose: 10 mg Pantoprazole Sodium (Protonix Ec Tab) 40 mg PO DAILY [facility] Last Admin: 07/04/18 10:32 Dose: 40 mg Paroxetine HCl (Paxil) 10 mg PO DAILY [facility] Last Admin: 07/04/18 10:32 Dose: 10 mg Ritonavir (Norvir) 100 mg PO BIDBS [facility]; Protocol Last Admin: 07/04/18 08:30 Dose: 100 mg Trazodone HCl (Desyrel) 50 mg PO HS [facility] Last Admin: 07/03/18 21:33 Dose: 50 mg Vitamin A (Vitamin A & D Oint Ud Foilpak) 1 ea TOP DAILY [facility] Last Admin: 07/04/18 10:31 Dose: 1 ea - Labs Labs: 07/04/18 07:12 07/04/18 07:12 PT 13.4 SECONDS (9.7-12.2) H 06/24/18 22:42 INR 1.2 06/24/18 22:42 APTT 29 SECONDS (21-34) 06/24/18 22:42 - Head Exam Head Exam: ATRAUMATIC, NORMOCEPHALIC - ENT Exam ENT Exam: Mucous Membranes Moist - Neck Exam Neck Exam: Normal Inspection - Respiratory Exam Respiratory Exam: Rales - Cardiovascular Exam Cardiovascular Exam: REGULAR RHYTHM - GI/Abdominal Exam GI & Abdominal Exam: Soft, Normal Bowel Sounds - Extremities Exam Extremities Exam: Full ROM - Neurological Exam Neurological Exam: Alert Assessment and Plan (1) Pneumonia Assessment & Plan: Antibiotics Stool for C. difficile, ova and parasite Follow-up chest x-ray and ABG Status: Acute (2) HIV (human immunodeficiency virus infection) Status: Acute
--- NOTE | 2018-07-04 16:20 | RAD ---
Date of service: 07/04/2018 HISTORY: F/U COMPARISON: Portable chest 06/29/2018. FINDINGS: Right PICC not significantly changed in position. LUNGS: Diminishing airspace disease identified bilaterally fully minimal residual at the medial left base and mild residual at the right base. PLEURA: Trace right pleural effusion questioned. None on the left. No pneumothorax bilaterally. CARDIOVASCULAR: No aortic atherosclerotic calcification present. Normal cardiac size. No pulmonary vascular congestion. OSSEOUS STRUCTURES: No significant abnormalities. VISUALIZED UPPER ABDOMEN: Normal. OTHER FINDINGS: None. IMPRESSION: Significant bilateral infiltrate improvement with minimal residual the left and mild residual at the right. Trace right pleural effusion in question.
[2018-07-04] MEDS: Emtricitabine-Tenofovir 200 mg-300 mg Tab PO SCH (16:22)
[2018-07-04 18:00] LABS: ABG ALLEN TEST POS; ARTERIAL BLOOD GAS HCO3 22.5 mmol/L (21-28); ARTERIAL BLOOD GAS HEMOGLOBIN 10.4 g/dL (11.7-17.4); ARTERIAL BLOOD GAS O2 SAT 97.2 % (95-98); ARTERIAL BLOOD GAS PCO2 33 mm/Hg (35-45); ARTERIAL BLOOD GAS PH 7.41 (7.35-7.45); ARTERIAL BLOOD GAS PO2 117 mm/Hg (80-100); ARTERIAL BLOOD GAS TCO2 21.9 mmol/L (22-28)
[2018-07-04] MEDS: cefTRIAXone 2 GM in Sodium Chloride 0.9% 100 ML IVPB SCH (18:01)
--- NOTE | 2018-07-04 18:27 | CP.PCM.PN ---
Subjective - Date & Time of Evaluation Date of Evaluation: 07/04/18 Time of Evaluation: 08:00 - Subjective Subjective: less couh less SOB alert awake NAD Objective - Vital Signs/Intake and Output Vital Signs (last 24 hours): Temp Pulse Resp BP Pulse Ox 97.9 F 90 18 103/62 97 07/04/18 15:00 07/04/18 15:00 07/04/18 15:00 07/04/18 15:00 07/04/18 15:00 Intake and Output: 07/04/18 07/04/18 06:59 18:59 Intake Total 650 Balance 650 - Medications Medications: Current Medications Acetaminophen (Tylenol 325mg Tab) 975 mg PO ONCE PRN PRN Reason: Fever >100.4 F Last Admin: 06/24/18 22:28 Dose: 975 mg Albuterol/Ipratropium (Duoneb 3 Mg/0.5 Mg (3 Ml) Ud) 3 ml INH RQ6 [facility] Last Admin: 07/04/18 13:15 Dose: Not Given Darunavir (Prezista) 600 mg PO BID [facility]; Protocol Last Admin: 07/04/18 18:06 Dose: 600 mg Diltiazem HCl (Cardizem) 30 mg PO Q8H [facility] Last Admin: 07/04/18 13:38 Dose: Not Given Emtricitabine/Tenofovir (Truvada 200 Mg-300 Mg) 1 tab PO Q24H [facility]; Protocol Last Admin: 07/04/18 16:22 Dose: 1 tab Guaifenesin/Dextromethorphan (Robitussin Dm) 5 ml PO Q4H PRN PRN Reason: Cough Last Admin: 07/03/18 19:27 Dose: 5 ml Trimethoprim/Sulfamethoxazole (240 mg/ Dextrose) 250 mls @ 250 mls/hr IVPB Q6H [facility]; Protocol Last Admin: 07/04/18 16:21 Dose: 250 mls/hr Ceftriaxone Sodium 2 gm/ (Sodium Chloride) 100 mls @ 100 mls/hr IVPB Q24H K[facility]ARI; Protocol Last Admin: 07/04/18 18:01 Dose: 100 mls/hr Methylprednisolone (Solu-Medrol) 40 mg IVP Q12H K[facility]ARI Last Admin: 07/04/18 12:29 Dose: 40 mg Olanzapine (Zyprexa) 10 mg PO QPM K[facility]ARI Last Admin: 07/04/18 18:01 Dose: 10 mg Pantoprazole Sodium (Protonix Ec Tab) 40 mg PO DAILY K[facility]ARI Last Admin: 07/04/18 10:32 Dose: 40 mg Paroxetine HCl (Paxil) 10 mg PO DAILY K[facility]ARI Last Admin: 07/04/18 10:32 Dose: 10 mg Ritonavir (Norvir) 100 mg PO BIDBS KHARI; Protocol Last Admin: 07/04/18 16:22 Dose: 100 mg Trazodone HCl (Desyrel) 50 mg PO HS K[facility]ARI Last Admin: 07/03/18 21:33 Dose: 50 mg Vitamin A (Vitamin A & D Oint Ud Foilpak) 1 ea TOP DAILY K[facility]ARI Last Admin: 07/04/18 10:31 Dose: 1 ea - Labs Labs: 07/04/18 07:12 07/04/18 07:12 PT 13.4 SECONDS (9.7-12.2) H 06/24/18 22:42 INR 1.2 06/24/18 22:42 APTT 29 SECONDS (21-34) 06/24/18 22:42 - Constitutional Appears: Non-toxic, Chronically Ill - Head Exam Head Exam: NORMOCEPHALIC - Eye Exam Eye Exam: absent: Scleral icterus - ENT Exam ENT Exam: Mucous Membranes Dry - Neck Exam Neck Exam: absent: Lymphadenopathy - Respiratory Exam Respiratory Exam: Decreased Breath Sounds - Cardiovascular Exam Cardiovascular Exam: REGULAR RHYTHM - GI/Abdominal Exam GI & Abdominal Exam: Distended, Soft - Rectal Exam Rectal Exam: Deferred - Exam Exam: NORMAL INSPECTION - Extremities Exam Extremities Exam: absent: Pedal Edema - Back Exam Back Exam: absent: CVA tenderness (L), CVA tenderness (R) - Neurological Exam Neurological Exam: Alert, Awake, CN II-XII Intact - Psychiatric Exam Psychiatric exam: Depressed Assessment and Plan (1) Altered mental state Status: Acute (2) CHF (congestive heart failure) Status: Acute (3) Cocaine abuse Status: Acute (4) HIV (human immunodeficiency virus infection) Status: Acute (5) Pneumonia Status: Acute (6) SVT (supraventricular tachycardia) Status: Acute (7) Schizophrenia Status: Acute - Assessment and Plan (Free Text) Assessment: consider placement in LTCF cont iv rx 3 weeks then PO
[2018-07-05] MEDS: MethylPREDNISolone 40 mg Vial IVP SCH ×2 (00:23→11:58)
[2018-07-05] MEDS: Albuterol-Ipratrop 3 mg / 0.5 (3 ml) UD INH SCH ×4 (01:30→19:27)
[2018-07-05] MEDS: Sulfamethoxazole/Trimethoprim 240 MG in Dextrose 5% In Water 250 ML IVPB SCH ×4 (04:07→21:46)
--- NOTE | 2018-07-05 07:47 | CARD ---
APPROVED REPORT Date of service: 06/24/2018 EKG Measurement Heart [id number] <Conclusion> Supraventricular tachycardia ST & T wave abnormality, consider inferior ischemia Abnormal ECG
--- NOTE | 2018-07-05 07:47 | CARD ---
APPROVED REPORT Date of service: 06/24/2018 EKG Measurement Heart [id number] <Conclusion> Sinus tachycardia Right atrial enlargement Borderline ECG
[2018-07-05 07:52] LABS: HEMOGLOBIN 10.4 g/dL (11.0-16.0); LYMPH # 0.3 K/uL (1.0-4.3); MEAN CELL VOLUME 87.6 fL (81.0-99.0); MEAN CORPUSCULAR HGB CONC 33.1 g/dL (33.0-37.0); MEAN PLATELET VOLUME 7.4 fL (7.2-11.7); MONO # 0.2 K/uL (0.0-0.8); MONO % 2.3 % (0.0-10.0); NEUT # 8.3 K/uL (1.8-7.0); NEUT % 94.7 % (50.0-75.0); PLATELET COUNT 173 K/uL (130-400); RED CELL DISTRIBUTION WIDTH 15.1 % (11.5-14.5); WHITE BLOOD COUNT 8.8 K/uL (4.8-10.8)
[2018-07-05 08:39] LABS: ALB/GLOB RATIO 0.9 (1.0-2.1); ALBUMIN 2.6 g/dL (3.5-5.0); ALT/SGPT 32 U/L (9-52); AST/SGOT 27 U/L (14-36); BLOOD UREA NITROGEN 24 mg/dL (7-17); CALCIUM 8.9 mg/dl (8.6-10.4); GFR NON-AFRICAN AMERICAN > 60
--- NOTE | 2018-07-05 09:37 | CP.PCM.PN ---
Subjective - Date & Time of Evaluation Date of Evaluation: 07/05/18 Time of Evaluation: 07:00 - Subjective Subjective: patient seen and examined No shortness of breath Saturating well on nasal cannula Afebrile being treated for pneumonia Seen by EPS Taper steroids Objective - Vital Signs/Intake and Output Vital Signs (last 24 hours): Temp Pulse Resp BP Pulse Ox 97.6 F 100 H 18 93/59 L 97 07/05/18 07:00 07/05/18 07:34 07/05/18 07:00 07/05/18 07:00 07/05/18 07:00 Intake and Output: 07/05/18 07/05/18 06:59 18:59 Intake Total 970 Balance 970 - Medications Medications: Current Medications Acetaminophen (Tylenol 325mg Tab) 975 mg PO ONCE PRN PRN Reason: Fever >100.4 F Last Admin: 06/24/18 22:28 Dose: 975 mg Albuterol/Ipratropium (Duoneb 3 Mg/0.5 Mg (3 Ml) Ud) 3 ml INH RQ6 [facility] Last Admin: 07/05/18 01:30 Dose: 3 ml Darunavir (Prezista) 600 mg PO BID [facility]; Protocol Last Admin: 07/04/18 18:06 Dose: 600 mg Diltiazem HCl (Cardizem) 30 mg PO Q8H [facility] Last Admin: 07/05/18 06:59 Dose: 30 mg Emtricitabine/Tenofovir (Truvada 200 Mg-300 Mg) 1 tab PO Q24H [facility]; Protocol Last Admin: 07/04/18 16:22 Dose: 1 tab Guaifenesin/Dextromethorphan (Robitussin Dm) 5 ml PO Q4H PRN PRN Reason: Cough Last Admin: 07/03/18 19:27 Dose: 5 ml Trimethoprim/Sulfamethoxazole (240 mg/ Dextrose) 250 mls @ 250 mls/hr IVPB Q6H [facility]; Protocol Last Admin: 07/05/18 04:07 Dose: 250 mls/hr Ceftriaxone Sodium 2 gm/ (Sodium Chloride) 100 mls @ 100 mls/hr IVPB Q24H [facility]; Protocol Last Admin: 07/04/18 18:01 Dose: 100 mls/hr Methylprednisolone (Solu-Medrol) 40 mg IVP Q12H [facility] Last Admin: 07/05/18 00:23 Dose: 40 mg Olanzapine (Zyprexa) 10 mg PO QPM [facility] Last Admin: 07/04/18 18:01 Dose: 10 mg Pantoprazole Sodium (Protonix Ec Tab) 40 mg PO DAILY [facility] Last Admin: 07/04/18 10:32 Dose: 40 mg Paroxetine HCl (Paxil) 10 mg PO DAILY [facility] Last Admin: 07/04/18 10:32 Dose: 10 mg Ritonavir (Norvir) 100 mg PO BIDBS [facility]; Protocol Last Admin: 07/04/18 16:22 Dose: 100 mg Trazodone HCl (Desyrel) 50 mg PO HS [facility] Last Admin: 07/04/18 21:56 Dose: 50 mg Vitamin A (Vitamin A & D Oint Ud Foilpak) 1 ea TOP DAILY [facility] Last Admin: 07/04/18 10:31 Dose: 1 ea - Labs Labs: 07/05/18 07:41 07/05/18 07:41 PT 13.4 SECONDS (9.7-12.2) H 06/24/18 22:42 INR 1.2 06/24/18 22:42 APTT 29 SECONDS (21-34) 06/24/18 22:42 Assessment and Plan (1) Pneumonia Status: Acute (2) HIV (human immunodeficiency virus infection) Status: Acute
[2018-07-05] MEDS: Pantoprazole 40 mg EC Tab PO SCH (09:53)
[2018-07-05] MEDS: Vitamins A & D Oint UD Foilpak TOP SCH (09:54)
[2018-07-05 09:56] LABS: LYMPHOCYTE 4 % (20-40); MONOCYTE 3 % (0-10); NEUTROPHIL 93 % (50-75); TOTAL CELLS COUNTED 100
[2018-07-05 09:57] LABS: ANISOCYTOSIS SLIGHT; HYPOCHROMIC SLIGHT; POLYCHROMIC SLIGHT; TOXIC GRANULATION PRESENT
[2018-07-05 13:02] LABS: PLATELET ESTIMATE NORMAL (NORMAL)
[2018-07-05] MEDS: cefTRIAXone 2 GM in Sodium Chloride 0.9% 100 ML IVPB SCH (17:17)
[2018-07-05] MEDS: Emtricitabine-Tenofovir 200 mg-300 mg Tab PO SCH (17:19)
--- NOTE | 2018-07-05 19:40 | CP.PCM.PN ---
Subjective - Date & Time of Evaluation Date of Evaluation: 07/05/18 Time of Evaluation: 09:45 - Subjective Subjective: clinically same Objective - Vital Signs/Intake and Output Vital Signs (last 24 hours): Temp Pulse Resp BP Pulse Ox 98.6 F 103 H 18 96/58 L 97 07/05/18 15:19 07/05/18 15:19 07/05/18 15:19 07/05/18 15:19 07/05/18 15:19 Intake and Output: 07/05/18 07/06/18 18:59 06:59 Intake Total 700 Balance 700 - Medications Medications: Current Medications Acetaminophen (Tylenol 325mg Tab) 975 mg PO ONCE PRN PRN Reason: Fever >100.4 F Last Admin: 06/24/18 22:28 Dose: 975 mg Albuterol/Ipratropium (Duoneb 3 Mg/0.5 Mg (3 Ml) Ud) 3 ml INH RQ6 [facility] Last Admin: 07/05/18 19:27 Dose: 3 ml Darunavir (Prezista) 600 mg PO BID [facility]; Protocol Last Admin: 07/05/18 09:53 Dose: 600 mg Diltiazem HCl (Cardizem) 30 mg PO Q8H [facility] Last Admin: 07/05/18 13:24 Dose: 30 mg Emtricitabine/Tenofovir (Truvada 200 Mg-300 Mg) 1 tab PO Q24H [facility]; Protocol Last Admin: 07/05/18 17:19 Dose: 1 tab Guaifenesin/Dextromethorphan (Robitussin Dm) 5 ml PO Q4H PRN PRN Reason: Cough Last Admin: 07/03/18 19:27 Dose: 5 ml Trimethoprim/Sulfamethoxazole (240 mg/ Dextrose) 250 mls @ 250 mls/hr IVPB Q6H [facility]; Protocol Last Admin: 07/05/18 09:53 Dose: 250 mls/hr Ceftriaxone Sodium 2 gm/ (Sodium Chloride) 100 mls @ 100 mls/hr IVPB Q24H [facility]; Protocol Last Admin: 07/05/18 17:17 Dose: 100 mls/hr Methylprednisolone (Solu-Medrol) 40 mg IVP Q12H [facility] Last Admin: 07/05/18 11:58 Dose: 40 mg Olanzapine (Zyprexa) 10 mg PO QPM [facility] Last Admin: 07/05/18 17:20 Dose: 10 mg Pantoprazole Sodium (Protonix Ec Tab) 40 mg PO DAILY [facility] Last Admin: 07/05/18 09:53 Dose: 40 mg Paroxetine HCl (Paxil) 10 mg PO DAILY [facility] Last Admin: 07/05/18 09:53 Dose: 10 mg Ritonavir (Norvir) 100 mg PO BIDBS [facility]; Protocol Last Admin: 07/05/18 17:20 Dose: 100 mg Trazodone HCl (Desyrel) 50 mg PO HS [facility] Last Admin: 07/04/18 21:56 Dose: 50 mg Vitamin A (Vitamin A & D Oint Ud Foilpak) 1 ea TOP DAILY [facility] Last Admin: 07/05/18 09:54 Dose: 1 ea - Labs Labs: 07/05/18 07:41 07/05/18 07:41 PT 13.4 SECONDS (9.7-12.2) H 06/24/18 22:42 INR 1.2 06/24/18 22:42 APTT 29 SECONDS (21-34) 06/24/18 22:42 - Constitutional Appears: Well - Head Exam Head Exam: ATRAUMATIC, NORMAL INSPECTION, NORMOCEPHALIC - Eye Exam Eye Exam: EOMI, Normal appearance, PERRL Pupil Exam: NORMAL ACCOMODATION, PERRL - ENT Exam ENT Exam: Mucous Membranes Moist, Normal Exam - Neck Exam Neck Exam: Full ROM, Normal Inspection. absent: Lymphadenopathy - Respiratory Exam Respiratory Exam: Decreased Breath Sounds - Cardiovascular Exam Cardiovascular Exam: REGULAR RHYTHM, +S1, +S2 - GI/Abdominal Exam GI & Abdominal Exam: Soft, Diminished Bowel Sounds - Rectal Exam Rectal Exam: Deferred
[2018-07-06] MEDS: MethylPREDNISolone 40 mg Vial IVP SCH ×2 (01:00→12:14)
[2018-07-06] MEDS: Albuterol-Ipratrop 3 mg / 0.5 (3 ml) UD INH SCH (01:51)
[2018-07-06] MEDS: Sulfamethoxazole/Trimethoprim 240 MG in Dextrose 5% In Water 250 ML IVPB SCH ×4 (04:50→22:09)
[2018-07-06 08:19] LABS: BASO % 0.1 % (0.0-2.0); HEMOGLOBIN 10.8 g/dL (11.0-16.0); LYMPH # 0.2 K/uL (1.0-4.3); LYMPH % 2.2 % (20.0-40.0); MEAN CELL VOLUME 88.1 fL (81.0-99.0); MEAN CORPUSCULAR HEMOGLOBIN 28.4 pg (27.0-31.0); MEAN CORPUSCULAR HGB CONC 32.3 g/dL (33.0-37.0); MONO # 0.2 K/uL (0.0-0.8); MONO % 2.3 % (0.0-10.0); NEUT # 9.7 K/uL (1.8-7.0); NEUT % 95.4 % (50.0-75.0); NRBC % 0.1 % (0.0-2.0); PLATELET COUNT 152 K/uL (130-400); RED CELL DISTRIBUTION WIDTH 15.4 % (11.5-14.5); WHITE BLOOD COUNT 10.2 K/uL (4.8-10.8)
[2018-07-06 08:35] LABS: ALB/GLOB RATIO 0.9 (1.0-2.1); ALBUMIN 2.8 g/dL (3.5-5.0); ALT/SGPT 32 U/L (9-52); AST/SGOT 18 U/L (14-36); BLOOD UREA NITROGEN 24 mg/dL (7-17); GFR NON-AFRICAN AMERICAN > 60
[2018-07-06 09:15] LABS: LYMPHOCYTE 3 % (20-40); MONOCYTE 3 % (0-10); NEUTROPHIL 94 % (50-75); PLATELET ESTIMATE NORMAL (NORMAL); TOTAL CELLS COUNTED 100
[2018-07-06 09:16] LABS: ANISOCYTOSIS SLIGHT; HYPOCHROMIC SLIGHT; OVALOCYTES SLIGHT; POLYCHROMIC SLIGHT
--- NOTE | 2018-07-06 09:55 | CP.PCM.PN ---
<Sharmin Live - Last Filed: 07/06/18 09:57> Subjective - Date & Time of Evaluation Date of Evaluation: 07/06/18 Time of Evaluation: 09:00 - Subjective Subjective: Cardiology Follow Up Note Patient seen and examined at bedside. Patient reports she feels fine today. Denied chest pain, palpitations, or shortness of breath. Objective - Vital Signs/Intake and Output Vital Signs (last 24 hours): Temp Pulse Resp BP Pulse Ox 98.6 F 69 20 103/68 98 07/06/18 08:00 07/06/18 08:00 07/06/18 08:00 07/06/18 08:00 07/06/18 08:00 Intake and Output: 07/06/18 07/06/18 06:59 18:59 Intake Total 400 Balance 400 - Medications Medications: Current Medications Acetaminophen (Tylenol 325mg Tab) 975 mg PO ONCE PRN PRN Reason: Fever >100.4 F Last Admin: 06/24/18 22:28 Dose: 975 mg Darunavir (Prezista) 600 mg PO BID [facility]; Protocol Last Admin: 07/05/18 21:46 Dose: 600 mg Diltiazem HCl (Cardizem) 30 mg PO Q8H [facility] Last Admin: 07/06/18 05:42 Dose: 30 mg Emtricitabine/Tenofovir (Truvada 200 Mg-300 Mg) 1 tab PO Q24H [facility]; Protocol Last Admin: 07/05/18 17:19 Dose: 1 tab Enoxaparin Sodium (Lovenox) 40 mg SC DAILY [facility] Guaifenesin/Dextromethorphan (Robitussin Dm) 5 ml PO Q4H PRN PRN Reason: Cough Last Admin: 07/03/18 19:27 Dose: 5 ml Trimethoprim/Sulfamethoxazole (240 mg/ Dextrose) 250 mls @ 250 mls/hr IVPB Q6H [facility]; Protocol Last Admin: 07/06/18 04:50 Dose: 250 mls/hr Ceftriaxone Sodium 2 gm/ (Sodium Chloride) 100 mls @ 100 mls/hr IVPB Q24H [facility]; Protocol Last Admin: 07/05/18 17:17 Dose: 100 mls/hr Methylprednisolone (Solu-Medrol) 40 mg IVP Q12H [facility] Last Admin: 07/06/18 01:00 Dose: 40 mg Olanzapine (Zyprexa) 10 mg PO QPM [facility] Last Admin: 07/05/18 17:20 Dose: 10 mg Pantoprazole Sodium (Protonix Ec Tab) 40 mg PO DAILY [facility] Last Admin: 07/05/18 09:53 Dose: 40 mg Paroxetine HCl (Paxil) 10 mg PO DAILY [facility] Last Admin: 07/05/18 09:53 Dose: 10 mg Ritonavir (Norvir) 100 mg PO BIDBS [facility]; Protocol Last Admin: 07/05/18 17:20 Dose: 100 mg Trazodone HCl (Desyrel) 50 mg PO HS [facility] Last Admin: 07/05/18 21:45 Dose: 50 mg Vitamin A (Vitamin A & D Oint Ud Foilpak) 1 ea TOP DAILY [facility] Last Admin: 07/05/18 09:54 Dose: 1 ea - Labs Labs: 07/06/18 08:08 07/06/18 08:08 PT 13.4 SECONDS (9.7-12.2) H 06/24/18 22:42 INR 1.2 06/24/18 22:42 APTT 29 SECONDS (21-34) 06/24/18 22:42 - Additional Findings Additional findings: - Constitutional Appears: No Acute Distress - Head Exam Head Exam: NORMAL INSPECTION, NORMOCEPHALIC - Eye Exam Eye Exam: Normal appearance Pupil Exam: NORMAL ACCOMODATION - ENT Exam ENT Exam: Mucous Membranes Moist - Respiratory Exam Respiratory Exam: Decreased Breath Sounds - Cardiovascular Exam Cardiovascular Exam: +S1, +S2. absent: Tachycardia - GI/Abdominal Exam GI & Abdominal Exam: Soft, Normal Bowel Sounds - Extremities Exam Extremities Exam: Normal Inspection. absent: Pedal Edema, Tenderness - Neurological Exam Neurological Exam: Alert, Awake, Oriented x3 - Psychiatric Exam Psychiatric exam: Normal Affect, Normal Mood - Skin Skin Exam: Dry, Intact, Normal Color, Warm Assessment and Plan - Assessment and Plan (Free Text) Plan: SVTs Management: - EP consulted, most likely outpatient follow up with Dr. Faust - Patient has known history of cocaine use - Beta bia was changed to Cardizem, due to cocaine history Imaging: - EKG 06/24/18: noted SVTs at rate of 206 bpm - Repeat EKG 06/26/18: NSR at 84 BPM Case discussed with Sharmin Alvares DO, PGY2 <Wong Abrams Last Filed: 07/06/18 20:38> Objective - Vital Signs/Intake and Output Vital Signs (last 24 hours): Temp Pulse Resp BP Pulse Ox 98.3 F 85 18 110/67 96 07/06/18 14:00 07/06/18 15:25 07/06/18 14:00 07/06/18 14:00 07/06/18 14:00 Intake and Output: 07/06/18 07/07/18 18:59 06:59 Intake Total 750 Balance 750 - Medications Medications: Current Medications Acetaminophen (Tylenol 325mg Tab) 975 mg PO ONCE PRN PRN Reason: Fever >100.4 F Last Admin: 06/24/18 22:28 Dose: 975 mg Darunavir (Prezista) 600 mg PO BID [facility]; Protocol Last Admin: 07/06/18 17:19 Dose: 600 mg Diltiazem HCl (Cardizem) 30 mg PO Q8H [facility] Last Admin: 07/06/18 13:45 Dose: Not Given Emtricitabine/Tenofovir (Truvada 200 Mg-300 Mg) 1 tab PO Q24H [facility]; Protocol Last Admin: 07/06/18 16:53 Dose: 1 tab Enoxaparin Sodium (Lovenox) 40 mg SC DAILY [facility] Last Admin: 07/06/18 10:16 Dose: 40 mg Guaifenesin/Dextromethorphan (Robitussin Dm) 5 ml PO Q4H PRN PRN Reason: Cough Last Admin: 07/03/18 19:27 Dose: 5 ml Trimethoprim/Sulfamethoxazole (240 mg/ Dextrose) 250 mls @ 250 mls/hr IVPB Q6H [facility]; Protocol Last Admin: 07/06/18 16:53 Dose: 250 mls/hr Ceftriaxone Sodium 2 gm/ (Sodium Chloride) 100 mls @ 100 mls/hr IVPB Q24H [facility]; Protocol Last Admin: 07/06/18 17:36 Dose: 100 mls/hr Methylprednisolone (Solu-Medrol) 40 mg IVP Q12H [facility] Last Admin: 07/06/18 12:14 Dose: 40 mg Olanzapine (Zyprexa) 10 mg PO QPM [facility] Last Admin: 07/06/18 17:18 Dose: 10 mg Pantoprazole Sodium (Protonix Ec Tab) 40 mg PO DAILY [facility] Last Admin: 07/06/18 10:16 Dose: 40 mg Paroxetine HCl (Paxil) 10 mg PO DAILY [facility] Last Admin: 07/06/18 10:22 Dose: 10 mg Ritonavir (Norvir) 100 mg PO BIDBS [facility]; Protocol Last Admin: 07/06/18 16:53 Dose: 100 mg Trazodone HCl (Desyrel) 50 mg PO HS [facility] Last Admin: 07/05/18 21:45 Dose: 50 mg Vitamin A (Vitamin A & D Oint Ud Foilpak) 1 ea TOP DAILY [facility] Last Admin: 07/06/18 10:15 Dose: 1 ea - Labs Labs: 07/06/18 08:08 07/06/18 08:08 PT 13.4 SECONDS (9.7-12.2) H 06/24/18 22:42 INR 1.2 06/24/18 22:42 APTT 29 SECONDS (21-34) 06/24/18 22:42 Assessment and Plan - Assessment and Plan (Free Text) Plan: Patient seen and evaluated Plan of care d/w the resident and as documented
[2018-07-06] MEDS: Vitamins A & D Oint UD Foilpak TOP SCH (10:15)
[2018-07-06] MEDS: Enoxaparin 40 mg Syringe SC SCH (10:16)
[2018-07-06] MEDS: Pantoprazole 40 mg EC Tab PO SCH (10:16)
--- NOTE | 2018-07-06 16:07 | CP.PCM.PCO ---
Physician Communication Note - Physician Communication Note Physician Communication Note: need ID and pul. clearance before , for abalation as per Dr. Faust
[2018-07-06] MEDS: Emtricitabine-Tenofovir 200 mg-300 mg Tab PO SCH (16:53)
--- NOTE | 2018-07-06 17:18 | RAD ---
Date of service: 07/06/2018 HISTORY: Verify right PICC COMPARISON: Comparison chest dated 07/04/2018. FINDINGS: Interval placement situ right-sided PICC line the tip of which lies in the SVC. LUNGS: Questionable atelectasis and/or infiltrate left medial lung base associate with partial obscuration medial aspect left hemidiaphragm. Minor scarring right mid lung field with suspect atelectasis right lung base Note again made of a small calcified granuloma right upper lung field overlying the right anterior 1st rib. PLEURA: Minimal right basilar atelectasis. No significant pleural effusion identified, no pneumothorax apparent. CARDIOVASCULAR: No aortic atherosclerotic calcification present. Normal cardiac size. No pulmonary vascular congestion. OSSEOUS STRUCTURES: No significant abnormalities. VISUALIZED UPPER ABDOMEN: Normal. OTHER FINDINGS: None. IMPRESSION: Interval placement situ right-sided PICC line the tip of which lies in the SVC.. Questionable atelectasis and/or infiltrate left medial lung base associate with partial obscuration of the medial aspect left hemidiaphragm Note again made of a small calcified granuloma right upper lung field overlying the right anterior 1st rib.
--- NOTE | 2018-07-06 17:25 | CP.PCM.PN ---
Subjective - Date & Time of Evaluation Date of Evaluation: 07/06/18 Time of Evaluation: 09:30 - Subjective Subjective: clinically same Objective - Vital Signs/Intake and Output Vital Signs (last 24 hours): Temp Pulse Resp BP Pulse Ox 98.3 F 85 18 110/67 96 07/06/18 14:00 07/06/18 15:25 07/06/18 14:00 07/06/18 14:00 07/06/18 14:00 Intake and Output: 07/06/18 07/06/18 06:59 18:59 Intake Total 400 750 Balance 400 750 - Medications Medications: Current Medications Acetaminophen (Tylenol 325mg Tab) 975 mg PO ONCE PRN PRN Reason: Fever >100.4 F Last Admin: 06/24/18 22:28 Dose: 975 mg Darunavir (Prezista) 600 mg PO BID [facility]; Protocol Last Admin: 07/06/18 17:19 Dose: 600 mg Diltiazem HCl (Cardizem) 30 mg PO Q8H [facility] Last Admin: 07/06/18 13:45 Dose: Not Given Emtricitabine/Tenofovir (Truvada 200 Mg-300 Mg) 1 tab PO Q24H [facility]; Protocol Last Admin: 07/06/18 16:53 Dose: 1 tab Enoxaparin Sodium (Lovenox) 40 mg SC DAILY [facility] Last Admin: 07/06/18 10:16 Dose: 40 mg Guaifenesin/Dextromethorphan (Robitussin Dm) 5 ml PO Q4H PRN PRN Reason: Cough Last Admin: 07/03/18 19:27 Dose: 5 ml Trimethoprim/Sulfamethoxazole (240 mg/ Dextrose) 250 mls @ 250 mls/hr IVPB Q6H [facility]; Protocol Last Admin: 07/06/18 16:53 Dose: 250 mls/hr Ceftriaxone Sodium 2 gm/ (Sodium Chloride) 100 mls @ 100 mls/hr IVPB Q24H [facility]; Protocol Last Admin: 07/05/18 17:17 Dose: 100 mls/hr Methylprednisolone (Solu-Medrol) 40 mg IVP Q12H [facility] Last Admin: 07/06/18 12:14 Dose: 40 mg Olanzapine (Zyprexa) 10 mg PO QPM [facility] Last Admin: 07/06/18 17:18 Dose: 10 mg Pantoprazole Sodium (Protonix Ec Tab) 40 mg PO DAILY [facility] Last Admin: 07/06/18 10:16 Dose: 40 mg Paroxetine HCl (Paxil) 10 mg PO DAILY [facility] Last Admin: 07/06/18 10:22 Dose: 10 mg Ritonavir (Norvir) 100 mg PO BIDBS [facility]; Protocol Last Admin: 07/06/18 16:53 Dose: 100 mg Trazodone HCl (Desyrel) 50 mg PO HS [facility] Last Admin: 07/05/18 21:45 Dose: 50 mg Vitamin A (Vitamin A & D Oint Ud Foilpak) 1 ea TOP DAILY [facility] Last Admin: 07/06/18 10:15 Dose: 1 ea - Labs Labs: 07/06/18 08:08 07/06/18 08:08 PT 13.4 SECONDS (9.7-12.2) H 06/24/18 22:42 INR 1.2 06/24/18 22:42 APTT 29 SECONDS (21-34) 06/24/18 22:42 - Constitutional Appears: Well - Head Exam Head Exam: ATRAUMATIC, NORMAL INSPECTION, NORMOCEPHALIC - Eye Exam Eye Exam: EOMI, Normal appearance, PERRL Pupil Exam: NORMAL ACCOMODATION, PERRL - ENT Exam ENT Exam: Mucous Membranes Moist, Normal Exam - Neck Exam Neck Exam: Full ROM, Normal Inspection. absent: Lymphadenopathy - Respiratory Exam Respiratory Exam: Decreased Breath Sounds - Cardiovascular Exam Cardiovascular Exam: REGULAR RHYTHM, +S1, +S2 - GI/Abdominal Exam GI & Abdominal Exam: Soft, Diminished Bowel Sounds - Rectal Exam Rectal Exam: Deferred
--- NOTE | 2018-07-06 17:29 | CP.PCM.PN ---
Subjective - Date & Time of Evaluation Date of Evaluation: 07/06/18 Time of Evaluation: 07:00 - Subjective Subjective: improving for ablation rx on monday Objective - Vital Signs/Intake and Output Vital Signs (last 24 hours): Temp Pulse Resp BP Pulse Ox 98.3 F 85 18 110/67 96 07/06/18 14:00 07/06/18 15:25 07/06/18 14:00 07/06/18 14:00 07/06/18 14:00 Intake and Output: 07/06/18 07/06/18 06:59 18:59 Intake Total 400 750 Balance 400 750 - Medications Medications: Current Medications Acetaminophen (Tylenol 325mg Tab) 975 mg PO ONCE PRN PRN Reason: Fever >100.4 F Last Admin: 06/24/18 22:28 Dose: 975 mg Darunavir (Prezista) 600 mg PO BID [facility]; Protocol Last Admin: 07/06/18 17:19 Dose: 600 mg Diltiazem HCl (Cardizem) 30 mg PO Q8H [facility] Last Admin: 07/06/18 13:45 Dose: Not Given Emtricitabine/Tenofovir (Truvada 200 Mg-300 Mg) 1 tab PO Q24H [facility]; Protocol Last Admin: 07/06/18 16:53 Dose: 1 tab Enoxaparin Sodium (Lovenox) 40 mg SC DAILY [facility] Last Admin: 07/06/18 10:16 Dose: 40 mg Guaifenesin/Dextromethorphan (Robitussin Dm) 5 ml PO Q4H PRN PRN Reason: Cough Last Admin: 07/03/18 19:27 Dose: 5 ml Trimethoprim/Sulfamethoxazole (240 mg/ Dextrose) 250 mls @ 250 mls/hr IVPB Q6H [facility]; Protocol Last Admin: 07/06/18 16:53 Dose: 250 mls/hr Ceftriaxone Sodium 2 gm/ (Sodium Chloride) 100 mls @ 100 mls/hr IVPB Q24H [facility]; Protocol Last Admin: 07/05/18 17:17 Dose: 100 mls/hr Methylprednisolone (Solu-Medrol) 40 mg IVP Q12H [facility] Last Admin: 07/06/18 12:14 Dose: 40 mg Olanzapine (Zyprexa) 10 mg PO QPM [facility] Last Admin: 07/06/18 17:18 Dose: 10 mg Pantoprazole Sodium (Protonix Ec Tab) 40 mg PO DAILY [facility] Last Admin: 07/06/18 10:16 Dose: 40 mg Paroxetine HCl (Paxil) 10 mg PO DAILY [facility] Last Admin: 07/06/18 10:22 Dose: 10 mg Ritonavir (Norvir) 100 mg PO BIDBS [facility]; Protocol Last Admin: 07/06/18 16:53 Dose: 100 mg Trazodone HCl (Desyrel) 50 mg PO HS [facility] Last Admin: 07/05/18 21:45 Dose: 50 mg Vitamin A (Vitamin A & D Oint Ud Foilpak) 1 ea TOP DAILY [facility] Last Admin: 07/06/18 10:15 Dose: 1 ea - Labs Labs: 07/06/18 08:08 07/06/18 08:08 PT 13.4 SECONDS (9.7-12.2) H 06/24/18 22:42 INR 1.2 06/24/18 22:42 APTT 29 SECONDS (21-34) 06/24/18 22:42 - Constitutional Appears: Non-toxic, Chronically Ill - Head Exam Head Exam: NORMOCEPHALIC - Eye Exam Eye Exam: absent: Scleral icterus - ENT Exam ENT Exam: Mucous Membranes Dry - Neck Exam Neck Exam: absent: Lymphadenopathy - Respiratory Exam Respiratory Exam: Decreased Breath Sounds - Cardiovascular Exam Cardiovascular Exam: REGULAR RHYTHM - GI/Abdominal Exam GI & Abdominal Exam: Distended, Soft Assessment and Plan (1) Altered mental state Status: Acute (2) CHF (congestive heart failure) Status: Acute (3) Cocaine abuse Status: Acute (4) HIV (human immunodeficiency virus infection) Status: Acute (5) Pneumonia Status: Acute (6) SVT (supraventricular tachycardia) Status: Acute (7) Schizophrenia Status: Acute
[2018-07-06] MEDS: cefTRIAXone 2 GM in Sodium Chloride 0.9% 100 ML IVPB SCH (17:36)
--- NOTE | 2018-07-06 19:49 | CP.PCM.PN ---
Subjective - Date & Time of Evaluation Date of Evaluation: 07/06/18 - Subjective Subjective: condition same Seen by EPS, and ablation scheduled on Monday Continue antibiotics as per infectious disease Continue antiretroviral therapy Followup chest x-ray Objective - Vital Signs/Intake and Output Vital Signs (last 24 hours): Temp Pulse Resp BP Pulse Ox 98.3 F 85 18 110/67 96 07/06/18 14:00 07/06/18 15:25 07/06/18 14:00 07/06/18 14:00 07/06/18 14:00 Intake and Output: 07/06/18 07/07/18 18:59 06:59 Intake Total 750 Balance 750 - Medications Medications: Current Medications Acetaminophen (Tylenol 325mg Tab) 975 mg PO ONCE PRN PRN Reason: Fever >100.4 F Last Admin: 06/24/18 22:28 Dose: 975 mg Darunavir (Prezista) 600 mg PO BID [facility]; Protocol Last Admin: 07/06/18 17:19 Dose: 600 mg Diltiazem HCl (Cardizem) 30 mg PO Q8H [facility] Last Admin: 07/06/18 13:45 Dose: Not Given Emtricitabine/Tenofovir (Truvada 200 Mg-300 Mg) 1 tab PO Q24H [facility]; Protocol Last Admin: 07/06/18 16:53 Dose: 1 tab Enoxaparin Sodium (Lovenox) 40 mg SC DAILY [facility] Last Admin: 07/06/18 10:16 Dose: 40 mg Guaifenesin/Dextromethorphan (Robitussin Dm) 5 ml PO Q4H PRN PRN Reason: Cough Last Admin: 07/03/18 19:27 Dose: 5 ml Trimethoprim/Sulfamethoxazole (240 mg/ Dextrose) 250 mls @ 250 mls/hr IVPB Q6H [facility]; Protocol Last Admin: 07/06/18 16:53 Dose: 250 mls/hr Ceftriaxone Sodium 2 gm/ (Sodium Chloride) 100 mls @ 100 mls/hr IVPB Q24H [facility]; Protocol Last Admin: 07/06/18 17:36 Dose: 100 mls/hr Methylprednisolone (Solu-Medrol) 40 mg IVP Q12H [facility] Last Admin: 07/06/18 12:14 Dose: 40 mg Olanzapine (Zyprexa) 10 mg PO QPM [facility] Last Admin: 07/06/18 17:18 Dose: 10 mg Pantoprazole Sodium (Protonix Ec Tab) 40 mg PO DAILY [facility] Last Admin: 07/06/18 10:16 Dose: 40 mg Paroxetine HCl (Paxil) 10 mg PO DAILY [facility] Last Admin: 07/06/18 10:22 Dose: 10 mg Ritonavir (Norvir) 100 mg PO BIDBS [facility]; Protocol Last Admin: 07/06/18 16:53 Dose: 100 mg Trazodone HCl (Desyrel) 50 mg PO HS [facility] Last Admin: 07/05/18 21:45 Dose: 50 mg Vitamin A (Vitamin A & D Oint Ud Foilpak) 1 ea TOP DAILY [facility] Last Admin: 07/06/18 10:15 Dose: 1 ea - Labs Labs: 07/06/18 08:08 07/06/18 08:08 PT 13.4 SECONDS (9.7-12.2) H 06/24/18 22:42 INR 1.2 06/24/18 22:42 APTT 29 SECONDS (21-34) 06/24/18 22:42 Assessment and Plan (1) Pneumonia Status: Acute (2) HIV (human immunodeficiency virus infection) Status: Acute
[2018-07-07] MEDS: MethylPREDNISolone 40 mg Vial IVP SCH ×2 (00:15→14:26)
[2018-07-07] MEDS: Sulfamethoxazole/Trimethoprim 240 MG in Dextrose 5% In Water 250 ML IVPB SCH ×4 (04:12→22:23)
[2018-07-07] MEDS: Enoxaparin 40 mg Syringe SC SCH (10:01)
[2018-07-07] MEDS: Pantoprazole 40 mg EC Tab PO SCH (10:01)
[2018-07-07] MEDS: Vitamins A & D Oint UD Foilpak TOP SCH (10:14)
[2018-07-07] MEDS: Emtricitabine-Tenofovir 200 mg-300 mg Tab PO SCH (16:35)
[2018-07-07] MEDS: cefTRIAXone 2 GM in Sodium Chloride 0.9% 100 ML IVPB SCH (16:36)
--- NOTE | 2018-07-07 19:15 | CP.PCM.PN ---
Subjective - Date & Time of Evaluation Date of Evaluation: 07/07/18 Time of Evaluation: 10:45 - Subjective Subjective: clinically same Objective - Vital Signs/Intake and Output Vital Signs (last 24 hours): Temp Pulse Resp BP Pulse Ox 98.6 F 84 20 104/58 L 100 07/07/18 15:00 07/07/18 15:00 07/07/18 15:00 07/07/18 15:00 07/07/18 15:00 - Medications Medications: Current Medications Acetaminophen (Tylenol 325mg Tab) 975 mg PO ONCE PRN PRN Reason: Fever >100.4 F Last Admin: 06/24/18 22:28 Dose: 975 mg Darunavir (Prezista) 600 mg PO BID [facility]; Protocol Last Admin: 07/07/18 18:08 Dose: 600 mg Diltiazem HCl (Cardizem) 30 mg PO Q8H [facility] Last Admin: 07/07/18 14:27 Dose: 30 mg Emtricitabine/Tenofovir (Truvada 200 Mg-300 Mg) 1 tab PO Q24H [facility]; Protocol Last Admin: 07/07/18 16:35 Dose: 1 tab Enoxaparin Sodium (Lovenox) 40 mg SC DAILY [facility] Last Admin: 07/07/18 10:01 Dose: 40 mg Guaifenesin/Dextromethorphan (Robitussin Dm) 5 ml PO Q4H PRN PRN Reason: Cough Last Admin: 07/03/18 19:27 Dose: 5 ml Trimethoprim/Sulfamethoxazole (240 mg/ Dextrose) 250 mls @ 250 mls/hr IVPB Q6H [facility]; Protocol Last Admin: 07/07/18 18:07 Dose: 250 mls/hr Ceftriaxone Sodium 2 gm/ (Sodium Chloride) 100 mls @ 100 mls/hr IVPB Q24H [facility]; Protocol Last Admin: 07/07/18 16:36 Dose: 100 mls/hr Methylprednisolone (Solu-Medrol) 40 mg IVP Q12H [facility]I Last Admin: 07/07/18 14:26 Dose: 40 mg Olanzapine (Zyprexa) 10 mg PO QPM [facility]I Last Admin: 07/06/18 17:18 Dose: 10 mg Pantoprazole Sodium (Protonix Ec Tab) 40 mg PO DAILY [facility]I Last Admin: 07/07/18 10:01 Dose: 40 mg Paroxetine HCl (Paxil) 10 mg PO DAILY [facility]I Last Admin: 07/07/18 10:01 Dose: 10 mg Ritonavir (Norvir) 100 mg PO BIDBS [facility]I; Protocol Last Admin: 07/07/18 16:35 Dose: 100 mg Trazodone HCl (Desyrel) 50 mg PO HS [facility]I Last Admin: 07/06/18 22:09 Dose: 50 mg Vitamin A (Vitamin A & D Oint Ud Foilpak) 1 ea TOP DAILY [facility]I Last Admin: 07/07/18 10:14 Dose: 1 ea - Labs Labs: 07/06/18 08:08 07/06/18 08:08 PT 13.4 SECONDS (9.7-12.2) H 06/24/18 22:42 INR 1.2 06/24/18 22:42 APTT 29 SECONDS (21-34) 06/24/18 22:42 - Constitutional Appears: Well - Head Exam Head Exam: ATRAUMATIC, NORMAL INSPECTION, NORMOCEPHALIC - Eye Exam Eye Exam: EOMI, Normal appearance, PERRL Pupil Exam: NORMAL ACCOMODATION, PERRL - ENT Exam ENT Exam: Mucous Membranes Moist, Normal Exam - Neck Exam Neck Exam: Full ROM, Normal Inspection. absent: Lymphadenopathy - Respiratory Exam Respiratory Exam: Decreased Breath Sounds - Cardiovascular Exam Cardiovascular Exam: REGULAR RHYTHM, +S1, +S2 - GI/Abdominal Exam GI & Abdominal Exam: Soft, Diminished Bowel Sounds - Rectal Exam Rectal Exam: Deferred
--- NOTE | 2018-07-07 19:33 | CP.PCM.PN ---
Subjective - Date & Time of Evaluation Date of Evaluation: 07/07/18 Time of Evaluation: 18:00 - Subjective Subjective: patient seen and examined Sitting comfortably No shortness of breath Afebrile Continue antibiotics per infectious disease Nebulizer treatment EPS/ablation on Monday Taper steroids Objective - Vital Signs/Intake and Output Vital Signs (last 24 hours): Temp Pulse Resp BP Pulse Ox 98.6 F 84 20 104/58 L 100 07/07/18 15:00 07/07/18 15:00 07/07/18 15:00 07/07/18 15:00 07/07/18 15:00 - Medications Medications: Current Medications Acetaminophen (Tylenol 325mg Tab) 975 mg PO ONCE PRN PRN Reason: Fever >100.4 F Last Admin: 06/24/18 22:28 Dose: 975 mg Darunavir (Prezista) 600 mg PO BID [facility]; Protocol Last Admin: 07/07/18 18:08 Dose: 600 mg Diltiazem HCl (Cardizem) 30 mg PO Q8H [facility] Last Admin: 07/07/18 14:27 Dose: 30 mg Emtricitabine/Tenofovir (Truvada 200 Mg-300 Mg) 1 tab PO Q24H [facility]; Protocol Last Admin: 07/07/18 16:35 Dose: 1 tab Enoxaparin Sodium (Lovenox) 40 mg SC DAILY [facility] Last Admin: 07/07/18 10:01 Dose: 40 mg Guaifenesin/Dextromethorphan (Robitussin Dm) 5 ml PO Q4H PRN PRN Reason: Cough Last Admin: 07/03/18 19:27 Dose: 5 ml Trimethoprim/Sulfamethoxazole (240 mg/ Dextrose) 250 mls @ 250 mls/hr IVPB Q6H [facility]; Protocol Last Admin: 07/07/18 18:07 Dose: 250 mls/hr Ceftriaxone Sodium 2 gm/ (Sodium Chloride) 100 mls @ 100 mls/hr IVPB Q24H [facility]; Protocol Last Admin: 07/07/18 16:36 Dose: 100 mls/hr Methylprednisolone (Solu-Medrol) 40 mg IVP Q12H [facility] Last Admin: 07/07/18 14:26 Dose: 40 mg Olanzapine (Zyprexa) 10 mg PO QPM [facility] Last Admin: 07/06/18 17:18 Dose: 10 mg Pantoprazole Sodium (Protonix Ec Tab) 40 mg PO DAILY [facility] Last Admin: 07/07/18 10:01 Dose: 40 mg Paroxetine HCl (Paxil) 10 mg PO DAILY [facility] Last Admin: 07/07/18 10:01 Dose: 10 mg Ritonavir (Norvir) 100 mg PO BIDBS [facility]; Protocol Last Admin: 07/07/18 16:35 Dose: 100 mg Trazodone HCl (Desyrel) 50 mg PO HS [facility] Last Admin: 07/06/18 22:09 Dose: 50 mg Vitamin A (Vitamin A & D Oint Ud Foilpak) 1 ea TOP DAILY [facility] Last Admin: 07/07/18 10:14 Dose: 1 ea - Labs Labs: 07/06/18 08:08 07/06/18 08:08 PT 13.4 SECONDS (9.7-12.2) H 06/24/18 22:42 INR 1.2 06/24/18 22:42 APTT 29 SECONDS (21-34) 06/24/18 22:42 Assessment and Plan (1) Pneumonia Status: Acute (2) HIV (human immunodeficiency virus infection) Status: Acute
--- NOTE | 2018-07-07 21:42 | CP.PCM.PN ---
Subjective - Date & Time of Evaluation Date of Evaluation: 07/07/18 Time of Evaluation: 14:10 - Subjective Subjective: Patient seen and examined denies chest pain, palpitations, or shortness of breath. Objective - Additional Findings Additional findings: - Constitutional Appears: No Acute Distress - Head Exam Head Exam: NORMAL INSPECTION, NORMOCEPHALIC - Eye Exam Eye Exam: Normal appearance Pupil Exam: NORMAL ACCOMODATION - ENT Exam ENT Exam: Mucous Membranes Moist - Respiratory Exam Respiratory Exam: Decreased Breath Sounds - Cardiovascular Exam Cardiovascular Exam: +S1, +S2. absent: Tachycardia - GI/Abdominal Exam GI & Abdominal Exam: Soft, Normal Bowel Sounds - Extremities Exam Extremities Exam: Normal Inspection. absent: Pedal Edema, Tenderness - Neurological Exam Neurological Exam: Alert, Awake, Oriented x3 - Psychiatric Exam Psychiatric exam: Normal Affect, Normal Mood - Skin Skin Exam: Dry, Intact, Normal Color, Warm Assessment and Plan - Assessment and Plan (Free Text) Plan: SVTs Management: - EP consulted, most likely outpatient follow up with Dr. Faust - Patient has known history of cocaine use - Beta bia was changed to Cardizem, due to cocaine history Objective - Vital Signs/Intake and Output Vital Signs (last 24 hours): Temp Pulse Resp BP Pulse Ox 98.6 F 84 20 104/58 L 100 07/07/18 15:00 07/07/18 15:00 07/07/18 15:00 07/07/18 15:00 07/07/18 15:00 - Medications Medications: Current Medications Acetaminophen (Tylenol 325mg Tab) 975 mg PO ONCE PRN PRN Reason: Fever >100.4 F Last Admin: 06/24/18 22:28 Dose: 975 mg Darunavir (Prezista) 600 mg PO BID [facility]; Protocol Last Admin: 07/07/18 18:08 Dose: 600 mg Diltiazem HCl (Cardizem) 30 mg PO Q8H [facility] Last Admin: 07/07/18 14:27 Dose: 30 mg Emtricitabine/Tenofovir (Truvada 200 Mg-300 Mg) 1 tab PO Q24H [facility]; Protocol Last Admin: 07/07/18 16:35 Dose: 1 tab Enoxaparin Sodium (Lovenox) 40 mg SC DAILY [facility] Last Admin: 07/07/18 10:01 Dose: 40 mg Guaifenesin/Dextromethorphan (Robitussin Dm) 5 ml PO Q4H PRN PRN Reason: Cough Last Admin: 07/03/18 19:27 Dose: 5 ml Trimethoprim/Sulfamethoxazole (240 mg/ Dextrose) 250 mls @ 250 mls/hr IVPB Q6H [facility]; Protocol Last Admin: 07/07/18 18:07 Dose: 250 mls/hr Ceftriaxone Sodium 2 gm/ (Sodium Chloride) 100 mls @ 100 mls/hr IVPB Q24H [facility]; Protocol Last Admin: 07/07/18 16:36 Dose: 100 mls/hr Methylprednisolone (Solu-Medrol) 40 mg IVP Q12H [facility] Last Admin: 07/07/18 14:26 Dose: 40 mg Olanzapine (Zyprexa) 10 mg PO QPM [facility] Last Admin: 07/06/18 17:18 Dose: 10 mg Pantoprazole Sodium (Protonix Ec Tab) 40 mg PO DAILY [facility] Last Admin: 07/07/18 10:01 Dose: 40 mg Paroxetine HCl (Paxil) 10 mg PO DAILY [facility] Last Admin: 07/07/18 10:01 Dose: 10 mg Ritonavir (Norvir) 100 mg PO BIDBS [facility]; Protocol Last Admin: 07/07/18 16:35 Dose: 100 mg Trazodone HCl (Desyrel) 50 mg PO HS [facility] Last Admin: 07/06/18 22:09 Dose: 50 mg Vitamin A (Vitamin A & D Oint Ud Foilpak) 1 ea TOP DAILY [facility] Last Admin: 07/07/18 10:14 Dose: 1 ea - Labs Labs: 07/06/18 08:08 07/06/18 08:08 PT 13.4 SECONDS (9.7-12.2) H 06/24/18 22:42 INR 1.2 06/24/18 22:42 APTT 29 SECONDS (21-34) 06/24/18 22:42
[2018-07-08] MEDS: MethylPREDNISolone 40 mg Vial IVP SCH ×2 (00:34→14:00)
[2018-07-08] MEDS: Sulfamethoxazole/Trimethoprim 240 MG in Dextrose 5% In Water 250 ML IVPB SCH ×4 (04:11→22:56)
[2018-07-08] MEDS: Enoxaparin 40 mg Syringe SC SCH (10:10)
[2018-07-08] MEDS: Pantoprazole 40 mg EC Tab PO SCH (10:10)
[2018-07-08] MEDS: Vitamins A & D Oint UD Foilpak TOP SCH (10:11)
--- NOTE | 2018-07-08 16:09 | CP.PCM.PN ---
Subjective - Date & Time of Evaluation Date of Evaluation: 07/08/18 Time of Evaluation: 08:00 - Subjective Subjective: iv rx renewed less sob alert Objective - Vital Signs/Intake and Output Vital Signs (last 24 hours): Temp Pulse Resp BP Pulse Ox 97.5 F L 91 H 20 94/62 L 95 07/08/18 07:54 07/08/18 08:35 07/08/18 07:54 07/08/18 07:54 07/08/18 07:54 Intake and Output: 07/08/18 07/08/18 06:59 18:59 Output Total 850 Balance -850 - Medications Medications: Current Medications Acetaminophen (Tylenol 325mg Tab) 975 mg PO ONCE PRN PRN Reason: Fever >100.4 F Last Admin: 06/24/18 22:28 Dose: 975 mg Darunavir (Prezista) 600 mg PO BID [facility]; Protocol Last Admin: 07/08/18 10:09 Dose: 600 mg Diltiazem HCl (Cardizem) 30 mg PO Q8H [facility] Last Admin: 07/08/18 14:00 Dose: 30 mg Emtricitabine/Tenofovir (Truvada 200 Mg-300 Mg) 1 tab PO Q24H [facility]; Protocol Last Admin: 07/07/18 16:35 Dose: 1 tab Enoxaparin Sodium (Lovenox) 40 mg SC DAILY [facility] Last Admin: 07/08/18 10:10 Dose: 40 mg Guaifenesin/Dextromethorphan (Robitussin Dm) 5 ml PO Q4H PRN PRN Reason: Cough Last Admin: 07/03/18 19:27 Dose: 5 ml Trimethoprim/Sulfamethoxazole (240 mg/ Dextrose) 250 mls @ 250 mls/hr IVPB Q6H [facility]; Protocol Last Admin: 07/08/18 10:11 Dose: 250 mls/hr Ceftriaxone Sodium 2 gm/ (Sodium Chloride) 100 mls @ 100 mls/hr IVPB Q24H [facility]; Protocol Last Admin: 07/07/18 16:36 Dose: 100 mls/hr Methylprednisolone (Solu-Medrol) 40 mg IVP Q12H [facility] Last Admin: 07/08/18 14:00 Dose: 40 mg Olanzapine (Zyprexa) 10 mg PO QPM [facility] Last Admin: 07/07/18 18:55 Dose: 10 mg Pantoprazole Sodium (Protonix Ec Tab) 40 mg PO DAILY [facility] Last Admin: 07/08/18 10:10 Dose: 40 mg Paroxetine HCl (Paxil) 10 mg PO DAILY [facility] Last Admin: 07/08/18 10:10 Dose: 10 mg Ritonavir (Norvir) 100 mg PO BIDBS [facility]; Protocol Last Admin: 07/08/18 08:11 Dose: 100 mg Trazodone HCl (Desyrel) 50 mg PO HS [facility] Last Admin: 07/07/18 22:24 Dose: 50 mg Vitamin A (Vitamin A & D Oint Ud Foilpak) 1 ea TOP DAILY [facility] Last Admin: 07/08/18 10:11 Dose: 1 ea - Labs Labs: 07/06/18 08:08 07/06/18 08:08 PT 13.4 SECONDS (9.7-12.2) H 06/24/18 22:42 INR 1.2 06/24/18 22:42 APTT 29 SECONDS (21-34) 06/24/18 22:42 - Constitutional Appears: Non-toxic, Confused, Cachectic, Chronically Ill - Head Exam Head Exam: NORMOCEPHALIC - Eye Exam Eye Exam: absent: Scleral icterus - ENT Exam ENT Exam: Mucous Membranes Dry - Neck Exam Neck Exam: absent: Lymphadenopathy - Respiratory Exam Respiratory Exam: Decreased Breath Sounds - Cardiovascular Exam Cardiovascular Exam: REGULAR RHYTHM - GI/Abdominal Exam GI & Abdominal Exam: Distended, Soft - Exam Exam: Circumcision - Extremities Exam Extremities Exam: absent: Full ROM - Back Exam Back Exam: absent: CVA tenderness (L), CVA tenderness (R) - Neurological Exam Neurological Exam: Alert, Awake, CN II-XII Intact Assessment and Plan (1) Altered mental state Status: Acute (2) CHF (congestive heart failure) Status: Acute (3) Cocaine abuse Status: Acute (4) HIV (human immunodeficiency virus infection) Status: Acute (5) Pneumonia Status: Acute (6) SVT (supraventricular tachycardia) Status: Acute (7) Schizophrenia Status: Acute - Assessment and Plan (Free Text) Assessment: cont HAART Rx Bactrim IV x 21 days then PO
--- NOTE | 2018-07-08 16:11 | CP.PCM.PCO ---
Physician Communication Note - Physician Communication Note Physician Communication [facility]
[2018-07-08] MEDS: Emtricitabine-Tenofovir 200 mg-300 mg Tab PO SCH (16:45)
[2018-07-08] MEDS: cefTRIAXone 2 GM in Sodium Chloride 0.9% 100 ML IVPB SCH (16:45)
--- NOTE | 2018-07-08 17:28 | CP.PCM.PN ---
Subjective - Date & Time of Evaluation Date of Evaluation: 07/08/18 Time of Evaluation: 09:30 - Subjective Subjective: clinically same Objective - Vital Signs/Intake and Output Vital Signs (last 24 hours): Temp Pulse Resp BP Pulse Ox 97.4 F L 87 20 100/63 98 07/08/18 16:00 07/08/18 16:00 07/08/18 16:00 07/08/18 16:00 07/08/18 16:00 Intake and Output: 07/08/18 07/08/18 06:59 18:59 Output Total 850 Balance -850 - Medications Medications: Current Medications Acetaminophen (Tylenol 325mg Tab) 975 mg PO ONCE PRN PRN Reason: Fever >100.4 F Last Admin: 06/24/18 22:28 Dose: 975 mg Darunavir (Prezista) 600 mg PO BID [facility]; Protocol Last Admin: 07/08/18 10:09 Dose: 600 mg Diltiazem HCl (Cardizem) 30 mg PO Q8H [facility] Last Admin: 07/08/18 14:00 Dose: 30 mg Emtricitabine/Tenofovir (Truvada 200 Mg-300 Mg) 1 tab PO Q24H [facility]; Protocol Last Admin: 07/07/18 16:35 Dose: 1 tab Enoxaparin Sodium (Lovenox) 40 mg SC DAILY [facility] Last Admin: 07/08/18 10:10 Dose: 40 mg Guaifenesin/Dextromethorphan (Robitussin Dm) 5 ml PO Q4H PRN PRN Reason: Cough Last Admin: 07/03/18 19:27 Dose: 5 ml Trimethoprim/Sulfamethoxazole (240 mg/ Dextrose) 250 mls @ 250 mls/hr IVPB Q6H [facility]; Protocol Last Admin: 07/08/18 10:11 Dose: 250 mls/hr Ceftriaxone Sodium 2 gm/ (Sodium Chloride) 100 mls @ 100 mls/hr IVPB Q24H [facility]; Protocol Last Admin: 07/07/18 16:36 Dose: 100 mls/hr Methylprednisolone (Solu-Medrol) 40 mg IVP Q12H [facility] Last Admin: 07/08/18 14:00 Dose: 40 mg Olanzapine (Zyprexa) 10 mg PO QPM [facility] Last Admin: 07/07/18 18:55 Dose: 10 mg Pantoprazole Sodium (Protonix Ec Tab) 40 mg PO DAILY [facility] Last Admin: 07/08/18 10:10 Dose: 40 mg Paroxetine HCl (Paxil) 10 mg PO DAILY [facility] Last Admin: 07/08/18 10:10 Dose: 10 mg Ritonavir (Norvir) 100 mg PO BIDBS [facility]; Protocol Last Admin: 07/08/18 08:11 Dose: 100 mg Trazodone HCl (Desyrel) 50 mg PO HS [facility] Last Admin: 07/07/18 22:24 Dose: 50 mg Vitamin A (Vitamin A & D Oint Ud Foilpak) 1 ea TOP DAILY [facility] Last Admin: 07/08/18 10:11 Dose: 1 ea - Labs Labs: 07/06/18 08:08 07/06/18 08:08 PT 13.4 SECONDS (9.7-12.2) H 06/24/18 22:42 INR 1.2 06/24/18 22:42 APTT 29 SECONDS (21-34) 06/24/18 22:42 - Constitutional Appears: Well - Head Exam Head Exam: ATRAUMATIC, NORMAL INSPECTION, NORMOCEPHALIC - Eye Exam Eye Exam: EOMI, Normal appearance, PERRL Pupil Exam: NORMAL ACCOMODATION, PERRL - ENT Exam ENT Exam: Mucous Membranes Moist, Normal Exam - Neck Exam Neck Exam: Full ROM, Normal Inspection. absent: Lymphadenopathy - Respiratory Exam Respiratory Exam: Decreased Breath Sounds - Cardiovascular Exam Cardiovascular Exam: REGULAR RHYTHM, +S1, +S2 - GI/Abdominal Exam GI & Abdominal Exam: Soft, Diminished Bowel Sounds - Rectal Exam Rectal Exam: Deferred
--- NOTE | 2018-07-08 17:40 | CP.PCM.PN ---
Subjective - Date & Time of Evaluation Date of Evaluation: 07/08/18 Time of Evaluation: 12:00 - Subjective Subjective: Pulmonary Follow up, Covering Dr Hassan The patient was Seen/interviewed and examined by me at the bedside, Medical records reviewed and Management issues were discussed and formulated with the house staff. Events reviewed Paftient comfortable, NAD Denies CP,palpitations or shortness of breath. Afebrile Objective - Vital Signs/Intake and Output Vital Signs (last 24 hours): Temp Pulse Resp BP Pulse Ox 97.4 F L 87 20 100/63 98 07/08/18 16:00 07/08/18 16:00 07/08/18 16:00 07/08/18 16:00 07/08/18 16:00 Intake and Output: 07/08/18 07/08/18 06:59 18:59 Output Total 850 Balance -850 - Medications Medications: Current Medications Acetaminophen (Tylenol 325mg Tab) 975 mg PO ONCE PRN PRN Reason: Fever >100.4 F Last Admin: 06/24/18 22:28 Dose: 975 mg Darunavir (Prezista) 600 mg PO BID [facility]; Protocol Last Admin: 07/08/18 10:09 Dose: 600 mg Diltiazem HCl (Cardizem) 30 mg PO Q8H [facility] Last Admin: 07/08/18 14:00 Dose: 30 mg Emtricitabine/Tenofovir (Truvada 200 Mg-300 Mg) 1 tab PO Q24H [facility]; Protocol Last Admin: 07/07/18 16:35 Dose: 1 tab Enoxaparin Sodium (Lovenox) 40 mg SC DAILY [facility] Last Admin: 07/08/18 10:10 Dose: 40 mg Guaifenesin/Dextromethorphan (Robitussin Dm) 5 ml PO Q4H PRN PRN Reason: Cough Last Admin: 07/03/18 19:27 Dose: 5 ml Trimethoprim/Sulfamethoxazole (240 mg/ Dextrose) 250 mls @ 250 mls/hr IVPB Q6H [facility]; Protocol Last Admin: 07/08/18 10:11 Dose: 250 mls/hr Ceftriaxone Sodium 2 gm/ (Sodium Chloride) 100 mls @ 100 mls/hr IVPB Q24H [facility]; Protocol Last Admin: 07/07/18 16:36 Dose: 100 mls/hr Methylprednisolone (Solu-Medrol) 40 mg IVP Q12H [facility] Last Admin: 07/08/18 14:00 Dose: 40 mg Olanzapine (Zyprexa) 10 mg PO QPM [facility] Last Admin: 07/07/18 18:55 Dose: 10 mg Pantoprazole Sodium (Protonix Ec Tab) 40 mg PO DAILY [facility] Last Admin: 07/08/18 10:10 Dose: 40 mg Paroxetine HCl (Paxil) 10 mg PO DAILY [facility] Last Admin: 07/08/18 10:10 Dose: 10 mg Ritonavir (Norvir) 100 mg PO BIDBS [facility]; Protocol Last Admin: 07/08/18 08:11 Dose: 100 mg Trazodone HCl (Desyrel) 50 mg PO HS [facility] Last Admin: 07/07/18 22:24 Dose: 50 mg Vitamin A (Vitamin A & D Oint Ud Foilpak) 1 ea TOP DAILY [facility] Last Admin: 07/08/18 10:11 Dose: 1 ea - Labs Labs: 07/06/18 08:08 07/06/18 08:08 PT 13.4 SECONDS (9.7-12.2) H 06/24/18 22:42 INR 1.2 06/24/18 22:42 APTT 29 SECONDS (21-34) 06/24/18 22:42 - Constitutional Appears: Well, Non-toxic - Head Exam Head Exam: ATRAUMATIC, NORMAL INSPECTION - Eye Exam Eye Exam: absent: Conjunctival injection - ENT Exam ENT Exam: absent: Mucous Membranes Dry - Neck Exam Neck Exam: Full ROM - Respiratory Exam Respiratory Exam: Decreased Breath Sounds, Rales, Rhonchi. absent: Accessory Muscle Use, Chest Wall Tenderness, Wheezes - Cardiovascular Exam Cardiovascular Exam: REGULAR RHYTHM, +S1, +S2. absent: Murmur - GI/Abdominal Exam GI & Abdominal Exam: Soft, Normal Bowel Sounds. absent: Tenderness Assessment and Plan (1) Pneumonia Status: Acute (2) Human immunodeficiency virus Status: Acute - Assessment and Plan (Free Text) Assessment: Continue antibiotics per infectious disease Nebulizer treatment EPS/ablation on Monday Taper steroids
--- NOTE | 2018-07-08 18:49 | CP.PCM.PN ---
Subjective - Date & Time of Evaluation Date of Evaluation: 07/08/18 Time of Evaluation: 10:15 - Subjective Subjective: Patient seen and examined denies chest pain, palpitations, or shortness of breath. Objective - Additional Findings Additional findings: - Constitutional Appears: No Acute Distress - Head Exam Head Exam: NORMAL INSPECTION, NORMOCEPHALIC - Eye Exam Eye Exam: Normal appearance Pupil Exam: NORMAL ACCOMODATION - ENT Exam ENT Exam: Mucous Membranes Moist - Respiratory Exam Respiratory Exam: Decreased Breath Sounds - Cardiovascular Exam Cardiovascular Exam: +S1, +S2. absent: Tachycardia - GI/Abdominal Exam GI & Abdominal Exam: Soft, Normal Bowel Sounds - Extremities Exam Extremities Exam: Normal Inspection. absent: Pedal Edema, Tenderness - Neurological Exam Neurological Exam: Alert, Awake, Oriented x3 - Psychiatric Exam Psychiatric exam: Normal Affect, Normal Mood - Skin Skin Exam: Dry, Intact, Normal Color, Warm Assessment and Plan - Assessment and Plan (Free Text) Plan: SVTs Management: - EP consulted, most likely outpatient follow up with Dr. Faust - Patient has known history of cocaine use - Beta bia was changed to Cardizem, due to cocaine history Objective - Vital Signs/Intake and Output Vital Signs (last 24 hours): Temp Pulse Resp BP Pulse Ox 97.4 F L 87 20 100/63 98 07/08/18 16:00 07/08/18 16:00 07/08/18 16:00 07/08/18 16:00 07/08/18 16:00 Intake and Output: 07/08/18 07/08/18 06:59 18:59 Output Total 850 Balance -850 - Medications Medications: Current Medications Acetaminophen (Tylenol 325mg Tab) 975 mg PO ONCE PRN PRN Reason: Fever >100.4 F Last Admin: 06/24/18 22:28 Dose: 975 mg Darunavir (Prezista) 600 mg PO BID [facility]; Protocol Last Admin: 07/08/18 18:05 Dose: 600 mg Diltiazem HCl (Cardizem) 30 mg PO Q8H [facility] Last Admin: 07/08/18 14:00 Dose: 30 mg Emtricitabine/Tenofovir (Truvada 200 Mg-300 Mg) 1 tab PO Q24H [facility]; Protocol Last Admin: 07/08/18 16:45 Dose: 1 tab Enoxaparin Sodium (Lovenox) 40 mg SC DAILY [facility] Last Admin: 07/08/18 10:10 Dose: 40 mg Guaifenesin/Dextromethorphan (Robitussin Dm) 5 ml PO Q4H PRN PRN Reason: Cough Last Admin: 07/03/18 19:27 Dose: 5 ml Trimethoprim/Sulfamethoxazole (240 mg/ Dextrose) 250 mls @ 250 mls/hr IVPB Q6H [facility]; Protocol Last Admin: 07/08/18 10:11 Dose: 250 mls/hr Ceftriaxone Sodium 2 gm/ (Sodium Chloride) 100 mls @ 100 mls/hr IVPB Q24H [facility]; Protocol Last Admin: 07/08/18 16:45 Dose: 100 mls/hr Methylprednisolone (Solu-Medrol) 40 mg IVP Q12H [facility] Last Admin: 07/08/18 14:00 Dose: 40 mg Olanzapine (Zyprexa) 10 mg PO QPM [facility] Last Admin: 07/08/18 18:07 Dose: 10 mg Pantoprazole Sodium (Protonix Ec Tab) 40 mg PO DAILY [facility] Last Admin: 07/08/18 10:10 Dose: 40 mg Paroxetine HCl (Paxil) 10 mg PO DAILY [facility] Last Admin: 07/08/18 10:10 Dose: 10 mg Ritonavir (Norvir) 100 mg PO BIDBS [facility]; Protocol Last Admin: 07/08/18 16:45 Dose: 100 mg Trazodone HCl (Desyrel) 50 mg PO HS [facility] Last Admin: 07/07/18 22:24 Dose: 50 mg Vitamin A (Vitamin A & D Oint Ud Foilpak) 1 ea TOP DAILY [facility] Last Admin: 07/08/18 10:11 Dose: 1 ea - Labs Labs: 07/06/18 08:08 07/06/18 08:08 PT 13.4 SECONDS (9.7-12.2) H 06/24/18 22:42 INR 1.2 06/24/18 22:42 APTT 29 SECONDS (21-34) 06/24/18 22:42
[2018-07-09] MEDS: MethylPREDNISolone 40 mg Vial IVP SCH ×2 (00:39→12:43)
[2018-07-09] MEDS: Sulfamethoxazole/Trimethoprim 240 MG in Dextrose 5% In Water 250 ML IVPB SCH ×4 (03:59→21:00)
[2018-07-09] MEDS: Vitamins A & D Oint UD Foilpak TOP SCH (09:13)
[2018-07-09] MEDS: Pantoprazole 40 mg EC Tab PO SCH (09:13)
[2018-07-09] MEDS: Enoxaparin 40 mg Syringe SC SCH (09:13)
--- NOTE | 2018-07-09 12:07 | CP.PCM.PN ---
<Sharmin Live - Last Filed: 07/09/18 12:05> Subjective - Date & Time of Evaluation Date of Evaluation: 07/09/18 Time of Evaluation: 10:00 - Subjective Subjective: Cardiology Follow Up Note Patient seen and examined at bedside. Patient denied chest pain, palpitations, or shortness of breath. Objective - Vital Signs/Intake and Output Vital Signs (last 24 hours): Temp Pulse Resp BP Pulse Ox 97.9 F 71 20 100/59 L 95 07/09/18 07:00 07/09/18 07:20 07/09/18 07:00 07/09/18 07:00 07/09/18 07:00 - Medications Medications: Current Medications Acetaminophen (Tylenol 325mg Tab) 975 mg PO ONCE PRN PRN Reason: Fever >100.4 F Last Admin: 06/24/18 22:28 Dose: 975 mg Darunavir (Prezista) 600 mg PO BID [facility]; Protocol Last Admin: 07/09/18 09:13 Dose: 600 mg Diltiazem HCl (Cardizem) 30 mg PO Q8H [facility] Last Admin: 07/09/18 05:22 Dose: 30 mg Emtricitabine/Tenofovir (Truvada 200 Mg-300 Mg) 1 tab PO Q24H [facility]; Protocol Last Admin: 07/08/18 16:45 Dose: 1 tab Enoxaparin Sodium (Lovenox) 40 mg SC DAILY [facility] Last Admin: 07/09/18 09:13 Dose: 40 mg Guaifenesin/Dextromethorphan (Robitussin Dm) 5 ml PO Q4H PRN PRN Reason: Cough Last Admin: 07/03/18 19:27 Dose: 5 ml Trimethoprim/Sulfamethoxazole (240 mg/ Dextrose) 250 mls @ 250 mls/hr IVPB Q6H [facility]; Protocol Last Admin: 07/09/18 09:36 Dose: 250 mls/hr Ceftriaxone Sodium 2 gm/ (Sodium Chloride) 100 mls @ 100 mls/hr IVPB Q24H [facility]; Protocol Last Admin: 07/08/18 16:45 Dose: 100 mls/hr Methylprednisolone (Solu-Medrol) 40 mg IVP Q12H [facility] Last Admin: 07/09/18 00:39 Dose: 40 mg Olanzapine (Zyprexa) 10 mg PO QPM [facility] Last Admin: 07/08/18 18:07 Dose: 10 mg Pantoprazole Sodium (Protonix Ec Tab) 40 mg PO DAILY [facility] Last Admin: 07/09/18 09:13 Dose: 40 mg Paroxetine HCl (Paxil) 10 mg PO DAILY [facility] Last Admin: 07/09/18 09:13 Dose: 10 mg Ritonavir (Norvir) 100 mg PO BIDBS [facility]; Protocol Last Admin: 07/09/18 08:30 Dose: 100 mg Trazodone HCl (Desyrel) 50 mg PO HS [facility] Last Admin: 07/08/18 22:56 Dose: 50 mg Vitamin A (Vitamin A & D Oint Ud Foilpak) 1 ea TOP DAILY [facility] Last Admin: 07/09/18 09:13 Dose: 1 ea - Labs Labs: 07/06/18 08:08 07/06/18 08:08 PT 13.4 SECONDS (9.7-12.2) H 06/24/18 22:42 INR 1.2 06/24/18 22:42 APTT 29 SECONDS (21-34) 06/24/18 22:42 - Additional Findings Additional findings: - Constitutional Appears: No Acute Distress - Head Exam Head Exam: NORMAL INSPECTION, NORMOCEPHALIC - Eye Exam Eye Exam: Normal appearance Pupil Exam: NORMAL ACCOMODATION - ENT Exam ENT Exam: Mucous Membranes Moist - Respiratory Exam Respiratory Exam: Decreased Breath Sounds - Cardiovascular Exam Cardiovascular Exam: +S1, +S2. absent: Tachycardia - GI/Abdominal Exam GI & Abdominal Exam: Soft, Normal Bowel Sounds - Extremities Exam Extremities Exam: Normal Inspection. absent: Pedal Edema, Tenderness - Neurological Exam Neurological Exam: Alert, Awake, Oriented x3 - Psychiatric Exam Psychiatric exam: Normal Affect, Normal Mood - Skin Skin Exam: Dry, Intact, Normal Color, Warm Assessment and Plan - Assessment and Plan (Free Text) Plan: SVTs Imaging: - EKG 06/24/18: noted SVTs at rate of 206 bpm - Repeat EKG 06/26/18: NSR at 84 BPM Management: - EP consulted, most likely outpatient follow up with Dr. Faust - Patient has known history of cocaine use - Beta bia was changed to Cardizem, due to cocaine history Case discussed with Sharmin Alvares DO, PGY2 <Wong Abrams - Last Filed: 07/09/18 23:51> Objective - Vital Signs/Intake and Output Vital Signs (last 24 hours): Temp Pulse Resp BP Pulse Ox 98.3 F 68 20 111/65 96 07/09/18 15:00 07/09/18 20:59 07/09/18 15:00 07/09/18 20:59 07/09/18 15:00 Intake and Output: 07/09/18 07/10/18 18:59 06:59 Intake Total 1100 Balance 1100 - Medications Medications: Current Medications Darunavir (Prezista) 600 mg PO BID [facility]; Protocol Last Admin: 07/09/18 17:12 Dose: 600 mg Diltiazem HCl (Cardizem) 30 mg PO Q8H [facility] Last Admin: 07/09/18 21:00 Dose: 30 mg Emtricitabine/Tenofovir (Truvada 200 Mg-300 Mg) 1 tab PO Q24H [facility]; Protocol Last Admin: 07/09/18 17:12 Dose: 1 tab Enoxaparin Sodium (Lovenox) 40 mg SC DAILY [facility] Last Admin: 07/09/18 09:13 Dose: 40 mg Guaifenesin/Dextromethorphan (Robitussin Dm) 5 ml PO Q4H PRN PRN Reason: Cough Last Admin: 07/03/18 19:27 Dose: 5 ml Trimethoprim/Sulfamethoxazole (240 mg/ Dextrose) 250 mls @ 250 mls/hr IVPB Q6H [facility]; Protocol Last Admin: 07/09/18 21:00 Dose: 250 mls/hr Ceftriaxone Sodium 2 gm/ (Sodium Chloride) 100 mls @ 100 mls/hr IVPB Q24H [facility]; Protocol Last Admin: 07/09/18 17:10 Dose: 100 mls/hr Methylprednisolone (Solu-Medrol) 40 mg IVP Q12H [facility] Last Admin: 07/09/18 12:43 Dose: 40 mg Olanzapine (Zyprexa) 10 mg PO QPM [facility] Last Admin: 07/09/18 17:12 Dose: 10 mg Pantoprazole Sodium (Protonix Ec Tab) 40 mg PO DAILY [facility] Last Admin: 07/09/18 09:13 Dose: 40 mg Paroxetine HCl (Paxil) 10 mg PO DAILY [facility] Last Admin: 07/09/18 09:13 Dose: 10 mg Ritonavir (Norvir) 100 mg PO BIDBS [facility]; Protocol Last Admin: 07/09/18 17:12 Dose: 100 mg Trazodone HCl (Desyrel) 50 mg PO HS [facility] Last Admin: 07/09/18 21:00 Dose: 50 mg Vitamin A (Vitamin A & D Oint Ud Foilpak) 1 ea TOP DAILY [facility] Last Admin: 07/09/18 09:13 Dose: 1 ea - Labs Labs: 07/06/18 08:08 07/06/18 08:08 PT 13.4 SECONDS (9.7-12.2) H 06/24/18 22:42 INR 1.2 06/24/18 22:42 APTT 29 SECONDS (21-34) 06/24/18 22:42 Assessment and Plan - Assessment and Plan (Free Text) Plan: Patient seen and evaluated personally by me Plan of care d/w the medical observer and as documented
--- NOTE | 2018-07-09 12:30 | CP.PCM.PN ---
Subjective - Date & Time of Evaluation Date of Evaluation: 07/09/18 Time of Evaluation: 09:00 - Subjective Subjective: all blood cultures negative cleared for ablation consider eval for [facility] Objective - Vital Signs/Intake and Output Vital Signs (last 24 hours): Temp Pulse Resp BP Pulse Ox 97.9 F 71 20 100/59 L 95 07/09/18 07:00 07/09/18 07:20 07/09/18 07:00 07/09/18 07:00 07/09/18 07:00 - Medications Medications: Current Medications Acetaminophen (Tylenol 325mg Tab) 975 mg PO ONCE PRN PRN Reason: Fever >100.4 F Last Admin: 06/24/18 22:28 Dose: 975 mg Darunavir (Prezista) 600 mg PO BID [facility]; Protocol Last Admin: 07/09/18 09:13 Dose: 600 mg Diltiazem HCl (Cardizem) 30 mg PO Q8H [facility] Last Admin: 07/09/18 05:22 Dose: 30 mg Emtricitabine/Tenofovir (Truvada 200 Mg-300 Mg) 1 tab PO Q24H [facility]; Protocol Last Admin: 07/08/18 16:45 Dose: 1 tab Enoxaparin Sodium (Lovenox) 40 mg SC DAILY [facility] Last Admin: 07/09/18 09:13 Dose: 40 mg Guaifenesin/Dextromethorphan (Robitussin Dm) 5 ml PO Q4H PRN PRN Reason: Cough Last Admin: 07/03/18 19:27 Dose: 5 ml Trimethoprim/Sulfamethoxazole (240 mg/ Dextrose) 250 mls @ 250 mls/hr IVPB Q6H [facility]; Protocol Last Admin: 07/09/18 09:36 Dose: 250 mls/hr Ceftriaxone Sodium 2 gm/ (Sodium Chloride) 100 mls @ 100 mls/hr IVPB Q24H [facility]; Protocol Last Admin: 07/08/18 16:45 Dose: 100 mls/hr Methylprednisolone (Solu-Medrol) 40 mg IVP Q12H [facility] Last Admin: 07/09/18 00:39 Dose: 40 mg Olanzapine (Zyprexa) 10 mg PO QPM [facility] Last Admin: 07/08/18 18:07 Dose: 10 mg Pantoprazole Sodium (Protonix Ec Tab) 40 mg PO DAILY [facility] Last Admin: 07/09/18 09:13 Dose: 40 mg Paroxetine HCl (Paxil) 10 mg PO DAILY [facility] Last Admin: 07/09/18 09:13 Dose: 10 mg Ritonavir (Norvir) 100 mg PO BIDBS [facility]; Protocol Last Admin: 07/09/18 08:30 Dose: 100 mg Trazodone HCl (Desyrel) 50 mg PO HS [facility] Last Admin: 07/08/18 22:56 Dose: 50 mg Vitamin A (Vitamin A & D Oint Ud Foilpak) 1 ea TOP DAILY [facility] Last Admin: 07/09/18 09:13 Dose: 1 ea - Labs Labs: 07/06/18 08:08 07/06/18 08:08 PT 13.4 SECONDS (9.7-12.2) H 06/24/18 22:42 INR 1.2 06/24/18 22:42 APTT 29 SECONDS (21-34) 06/24/18 22:42 - Constitutional Appears: Non-toxic, Chronically Ill - Head Exam Head Exam: NORMOCEPHALIC - Eye Exam Eye Exam: absent: Scleral icterus - ENT Exam ENT Exam: Mucous Membranes Dry - Neck Exam Neck Exam: absent: Lymphadenopathy - Respiratory Exam Respiratory Exam: Decreased Breath Sounds - Cardiovascular Exam Cardiovascular Exam: REGULAR RHYTHM - GI/Abdominal Exam GI & Abdominal Exam: Distended - Rectal Exam Rectal Exam: Deferred Assessment and Plan (1) Altered mental state Status: Acute (2) CHF (congestive heart failure) Status: Acute (3) Cocaine abuse Status: Acute (4) HIV (human immunodeficiency virus infection) Status: Acute (5) Pneumonia Status: Acute (6) SVT (supraventricular tachycardia) Status: Acute (7) Schizophrenia Status: Acute - Assessment and Plan (Free Text) Assessment: ok for ablation rx
--- NOTE | 2018-07-09 16:37 | CP.PCM.PN ---
Subjective - Date & Time of Evaluation Date of Evaluation: 07/09/18 Time of Evaluation: 10:20 - Subjective Subjective: Patient seen and examined at bedside, lying down comfortably. Afebrile and in no acute distress. Denies shortness of breath, cough, chest pain, fever. Continue antibiotics per infectious disease. EPS/Ablation Tuesday 07/10. Nebulizer treatment. Taper Steroids. Objective - Vital Signs/Intake and Output Vital Signs (last 24 hours): Temp Pulse Resp BP Pulse Ox 98.3 F 82 20 106/60 96 07/09/18 15:00 07/09/18 15:00 07/09/18 15:00 07/09/18 15:00 07/09/18 15:00 - Medications Medications: Current Medications Acetaminophen (Tylenol 325mg Tab) 975 mg PO ONCE PRN PRN Reason: Fever >100.4 F Last Admin: 06/24/18 22:28 Dose: 975 mg Darunavir (Prezista) 600 mg PO BID [facility]; Protocol Last Admin: 07/09/18 09:13 Dose: 600 mg Diltiazem HCl (Cardizem) 30 mg PO Q8H [facility] Last Admin: 07/09/18 13:33 Dose: 30 mg Emtricitabine/Tenofovir (Truvada 200 Mg-300 Mg) 1 tab PO Q24H [facility]; Protocol Last Admin: 07/08/18 16:45 Dose: 1 tab Enoxaparin Sodium (Lovenox) 40 mg SC DAILY [facility] Last Admin: 07/09/18 09:13 Dose: 40 mg Guaifenesin/Dextromethorphan (Robitussin Dm) 5 ml PO Q4H PRN PRN Reason: Cough Last Admin: 07/03/18 19:27 Dose: 5 ml Trimethoprim/Sulfamethoxazole (240 mg/ Dextrose) 250 mls @ 250 mls/hr IVPB Q6H [facility]; Protocol Last Admin: 07/09/18 09:36 Dose: 250 mls/hr Ceftriaxone Sodium 2 gm/ (Sodium Chloride) 100 mls @ 100 mls/hr IVPB Q24H [facility]; Protocol Last Admin: 07/08/18 16:45 Dose: 100 mls/hr Methylprednisolone (Solu-Medrol) 40 mg IVP Q12H [facility] Last Admin: 07/09/18 12:43 Dose: 40 mg Olanzapine (Zyprexa) 10 mg PO QPM [facility] Last Admin: 07/08/18 18:07 Dose: 10 mg Pantoprazole Sodium (Protonix Ec Tab) 40 mg PO DAILY [facility] Last Admin: 07/09/18 09:13 Dose: 40 mg Paroxetine HCl (Paxil) 10 mg PO DAILY [facility] Last Admin: 07/09/18 09:13 Dose: 10 mg Ritonavir (Norvir) 100 mg PO BIDBS [facility]; Protocol Last Admin: 07/09/18 08:30 Dose: 100 mg Trazodone HCl (Desyrel) 50 mg PO HS [facility] Last Admin: 07/08/18 22:56 Dose: 50 mg Vitamin A (Vitamin A & D Oint Ud Foilpak) 1 ea TOP DAILY [facility] Last Admin: 07/09/18 09:13 Dose: 1 ea - Labs Labs: 07/06/18 08:08 07/06/18 08:08 PT 13.4 SECONDS (9.7-12.2) H 06/24/18 22:42 INR 1.2 06/24/18 22:42 APTT 29 SECONDS (21-34) 06/24/18 22:42 Assessment and Plan (1) Pneumonia Status: Acute (2) HIV (human immunodeficiency virus infection) Status: Acute
[2018-07-09] MEDS: cefTRIAXone 2 GM in Sodium Chloride 0.9% 100 ML IVPB SCH (17:10)
[2018-07-09] MEDS: Emtricitabine-Tenofovir 200 mg-300 mg Tab PO SCH (17:12)
--- NOTE | 2018-07-09 17:40 | CP.PCM.PN ---
Subjective - Date & Time of Evaluation Date of Evaluation: 07/09/18 Time of Evaluation: 17:36 - Subjective Subjective: patient with SVT, No new episode. Awaiting for transfer to for further management. Objective - Vital Signs/Intake and Output Vital Signs (last 24 hours): Temp Pulse Resp BP Pulse Ox 98.3 F 79 20 106/60 96 07/09/18 15:00 07/09/18 15:04 07/09/18 15:00 07/09/18 15:00 07/09/18 15:00 - Medications Medications: Current Medications Acetaminophen (Tylenol 325mg Tab) 975 mg PO ONCE PRN PRN Reason: Fever >100.4 F Last Admin: 06/24/18 22:28 Dose: 975 mg Darunavir (Prezista) 600 mg PO BID [facility]; Protocol Last Admin: 07/09/18 17:12 Dose: 600 mg Diltiazem HCl (Cardizem) 30 mg PO Q8H [facility] Last Admin: 07/09/18 13:33 Dose: 30 mg Emtricitabine/Tenofovir (Truvada 200 Mg-300 Mg) 1 tab PO Q24H [facility]; Protocol Last Admin: 07/09/18 17:12 Dose: 1 tab Enoxaparin Sodium (Lovenox) 40 mg SC DAILY [facility] Last Admin: 07/09/18 09:13 Dose: 40 mg Guaifenesin/Dextromethorphan (Robitussin Dm) 5 ml PO Q4H PRN PRN Reason: Cough Last Admin: 07/03/18 19:27 Dose: 5 ml Trimethoprim/Sulfamethoxazole (240 mg/ Dextrose) 250 mls @ 250 mls/hr IVPB Q6H [facility]; Protocol Last Admin: 07/09/18 17:00 Dose: 250 mls/hr Ceftriaxone Sodium 2 gm/ (Sodium Chloride) 100 mls @ 100 mls/hr IVPB Q24H [facility]; Protocol Last Admin: 07/09/18 17:10 Dose: 100 mls/hr Methylprednisolone (Solu-Medrol) 40 mg IVP Q12H [facility] Last Admin: 07/09/18 12:43 Dose: 40 mg Olanzapine (Zyprexa) 10 mg PO QPM [facility] Last Admin: 07/09/18 17:12 Dose: 10 mg Pantoprazole Sodium (Protonix Ec Tab) 40 mg PO DAILY [facility] Last Admin: 07/09/18 09:13 Dose: 40 mg Paroxetine HCl (Paxil) 10 mg PO DAILY [facility] Last Admin: 07/09/18 09:13 Dose: 10 mg Ritonavir (Norvir) 100 mg PO BIDBS [facility]; Protocol Last Admin: 07/09/18 17:12 Dose: 100 mg Trazodone HCl (Desyrel) 50 mg PO HS [facility] Last Admin: 07/08/18 22:56 Dose: 50 mg Vitamin A (Vitamin A & D Oint Ud Foilpak) 1 ea TOP DAILY [facility] Last Admin: 07/09/18 09:13 Dose: 1 ea - Labs Labs: 07/06/18 08:08 07/06/18 08:08 PT 13.4 SECONDS (9.7-12.2) H 06/24/18 22:42 INR 1.2 06/24/18 22:42 APTT 29 SECONDS (21-34) 06/24/18 22:42 - Neck Exam Neck Exam: Normal Inspection - Respiratory Exam Respiratory Exam: NORMAL BREATHING PATTERN - Cardiovascular Exam Cardiovascular Exam: REGULAR RHYTHM - Extremities Exam Extremities Exam: Normal Inspection - Neurological Exam Neurological Exam: Alert, Oriented x3 Assessment and Plan (1) Aortic regurgitation Assessment & Plan: Stable, follow-up as needed. Status: Acute (2) Mitral regurgitation Assessment & Plan: Stable. Status: Acute (3) SVT (supraventricular tachycardia) Assessment & Plan: Plans for transfer to for Ablation. Patient is aware IMTALA form filled. Status: Acute
--- NOTE | 2018-07-09 23:49 | CP.PCM.PN ---
Subjective - Date & Time of Evaluation Date of Evaluation: 07/09/18 Time of Evaluation: 08:40 - Subjective Subjective: clinically same Objective - Vital Signs/Intake and Output Vital Signs (last 24 hours): Temp Pulse Resp BP Pulse Ox 98.3 F 68 20 111/65 96 07/09/18 15:00 07/09/18 20:59 07/09/18 15:00 07/09/18 20:59 07/09/18 15:00 Intake and Output: 07/09/18 07/10/18 18:59 06:59 Intake Total 1100 Balance 1100 - Medications Medications: Current Medications Darunavir (Prezista) 600 mg PO BID [facility]; Protocol Last Admin: 07/09/18 17:12 Dose: 600 mg Diltiazem HCl (Cardizem) 30 mg PO Q8H [facility] Last Admin: 07/09/18 21:00 Dose: 30 mg Emtricitabine/Tenofovir (Truvada 200 Mg-300 Mg) 1 tab PO Q24H [facility]; Protocol Last Admin: 07/09/18 17:12 Dose: 1 tab Enoxaparin Sodium (Lovenox) 40 mg SC DAILY [facility] Last Admin: 07/09/18 09:13 Dose: 40 mg Guaifenesin/Dextromethorphan (Robitussin Dm) 5 ml PO Q4H PRN PRN Reason: Cough Last Admin: 07/03/18 19:27 Dose: 5 ml Trimethoprim/Sulfamethoxazole (240 mg/ Dextrose) 250 mls @ 250 mls/hr IVPB Q6H [facility]; Protocol Last Admin: 07/09/18 21:00 Dose: 250 mls/hr Ceftriaxone Sodium 2 gm/ (Sodium Chloride) 100 mls @ 100 mls/hr IVPB Q24H [facility]; Protocol Last Admin: 07/09/18 17:10 Dose: 100 mls/hr Methylprednisolone (Solu-Medrol) 40 mg IVP Q12H [facility] Last Admin: 07/09/18 12:43 Dose: 40 mg Olanzapine (Zyprexa) 10 mg PO QPM [facility] Last Admin: 07/09/18 17:12 Dose: 10 mg Pantoprazole Sodium (Protonix Ec Tab) 40 mg PO DAILY [facility] Last Admin: 07/09/18 09:13 Dose: 40 mg Paroxetine HCl (Paxil) 10 mg PO DAILY [facility] Last Admin: 07/09/18 09:13 Dose: 10 mg Ritonavir (Norvir) 100 mg PO BIDBS [facility]; Protocol Last Admin: 07/09/18 17:12 Dose: 100 mg Trazodone HCl (Desyrel) 50 mg PO HS [facility] Last Admin: 07/09/18 21:00 Dose: 50 mg Vitamin A (Vitamin A & D Oint Ud Foilpak) 1 ea TOP DAILY [facility] Last Admin: 07/09/18 09:13 Dose: 1 ea - Labs Labs: 07/06/18 08:08 07/06/18 08:08 PT 13.4 SECONDS (9.7-12.2) H 06/24/18 22:42 INR 1.2 06/24/18 22:42 APTT 29 SECONDS (21-34) 06/24/18 22:42 - Constitutional Appears: Well - Head Exam Head Exam: ATRAUMATIC, NORMAL INSPECTION, NORMOCEPHALIC - Eye Exam Eye Exam: EOMI, Normal appearance, PERRL Pupil Exam: NORMAL ACCOMODATION, PERRL - ENT Exam ENT Exam: Mucous Membranes Moist, Normal Exam - Neck Exam Neck Exam: Full ROM, Normal Inspection. absent: Lymphadenopathy - Respiratory Exam Respiratory Exam: Decreased Breath Sounds - Cardiovascular Exam Cardiovascular Exam: REGULAR RHYTHM, +S1, +S2 - GI/Abdominal Exam GI & Abdominal Exam: Soft, Diminished Bowel Sounds - Rectal Exam Rectal Exam: Deferred
[2018-07-10] MEDS: MethylPREDNISolone 40 mg Vial IVP SCH ×2 (00:02→22:09)
[2018-07-10] MEDS: Sulfamethoxazole/Trimethoprim 240 MG in Dextrose 5% In Water 250 ML IVPB SCH ×2 (04:11→22:12)
[2018-07-10 06:34] LABS: BASO % 0.2 % (0.0-2.0); HEMOGLOBIN 10.4 g/dL (11.0-16.0); LYMPH # 0.2 K/uL (1.0-4.3); LYMPH % 3.6 % (20.0-40.0); MEAN CORPUSCULAR HEMOGLOBIN 28.9 pg (27.0-31.0); MEAN CORPUSCULAR HGB CONC 32.5 g/dL (33.0-37.0); MEAN PLATELET VOLUME 7.1 fL (7.2-11.7); MONO # 0.1 K/uL (0.0-0.8); MONO % 2.4 % (0.0-10.0); NEUT # 5.5 K/uL (1.8-7.0); NEUT % 93.8 % (50.0-75.0); NRBC % 0.1 % (0.0-2.0); PLATELET COUNT 104 K/uL (130-400); RBC 3.61 Mil/uL (3.80-5.20); RED CELL DISTRIBUTION WIDTH 15.4 % (11.5-14.5); WHITE BLOOD COUNT 5.8 K/uL (4.8-10.8)
[2018-07-10 06:44] LABS: PROTHROMBIN TIME 10.7 SECONDS (9.7-12.2)
[2018-07-10 07:12] LABS: ALB/GLOB RATIO 0.9 (1.0-2.1); ALBUMIN 2.7 g/dL (3.5-5.0); ALT/SGPT 32 U/L (9-52); AST/SGOT 17 U/L (14-36); BLOOD UREA NITROGEN 28 mg/dL (7-17); CALCIUM 8.3 mg/dl (8.6-10.4); GFR NON-AFRICAN AMERICAN > 60
[2018-07-10 08:34] LABS: LYMPHOCYTE 4 % (20-40); MONOCYTE 2 % (0-10); NEUTROPHIL 94 % (50-75); TOTAL CELLS COUNTED 100
[2018-07-10 08:35] LABS: ANISOCYTOSIS SLIGHT; HYPOCHROMIC SLIGHT; MICROCYTOSIS SLIGHT; OVALOCYTES SLIGHT; PLATELET ESTIMATE DECREASED (NORMAL); POIKILOCYTOSIS SLIGHT
--- NOTE | 2018-07-10 12:50 | CP.PCM.PN ---
Subjective - Date & Time of Evaluation Date of Evaluation: 07/10/18 Time of Evaluation: 08:40 - Subjective Subjective: clinically same Objective - Vital Signs/Intake and Output Vital Signs (last 24 hours): Temp Pulse Resp BP Pulse Ox 97.9 F 66 20 109/66 98 07/10/18 07:00 07/10/18 07:18 07/10/18 07:00 07/10/18 07:00 07/10/18 07:00 Intake and Output: 07/10/18 07/10/18 06:59 18:59 Intake Total 1100 Balance 1100 - Medications Medications: Current Medications Darunavir (Prezista) 600 mg PO BID [facility]; Protocol Last Admin: 07/09/18 17:12 Dose: 600 mg Diltiazem HCl (Cardizem) 30 mg PO Q8H [facility] Last Admin: 07/10/18 05:41 Dose: 30 mg Emtricitabine/Tenofovir (Truvada 200 Mg-300 Mg) 1 tab PO Q24H [facility]; Protocol Last Admin: 07/09/18 17:12 Dose: 1 tab Enoxaparin Sodium (Lovenox) 40 mg SC DAILY [facility] Last Admin: 07/09/18 09:13 Dose: 40 mg Guaifenesin/Dextromethorphan (Robitussin Dm) 5 ml PO Q4H PRN PRN Reason: Cough Last Admin: 07/03/18 19:27 Dose: 5 ml Trimethoprim/Sulfamethoxazole (240 mg/ Dextrose) 250 mls @ 250 mls/hr IVPB Q6H [facility]; Protocol Last Admin: 07/10/18 04:11 Dose: 250 mls/hr Ceftriaxone Sodium 2 gm/ (Sodium Chloride) 100 mls @ 100 mls/hr IVPB Q24H [facility]; Protocol Last Admin: 07/09/18 17:10 Dose: 100 mls/hr Olanzapine (Zyprexa) 10 mg PO QPM [facility] Last Admin: 07/09/18 17:12 Dose: 10 mg Pantoprazole Sodium (Protonix Ec Tab) 40 mg PO DAILY [facility] Last Admin: 07/09/18 09:13 Dose: 40 mg Paroxetine HCl (Paxil) 10 mg PO DAILY [facility] Last Admin: 07/09/18 09:13 Dose: 10 mg Ritonavir (Norvir) 100 mg PO BIDBS [facility]; Protocol Last Admin: 07/10/18 08:29 Dose: 100 mg Trazodone HCl (Desyrel) 50 mg PO HS [facility] Last Admin: 07/09/18 21:00 Dose: 50 mg Vitamin A (Vitamin A & D Oint Ud Foilpak) 1 ea TOP DAILY [facility] Last Admin: 07/09/18 09:13 Dose: 1 ea - Labs Labs: 07/10/18 06:28 07/10/18 06:28 PT 10.7 SECONDS (9.7-12.2) 07/10/18 06:28 INR 1.0 07/10/18 06:28 APTT 22 SECONDS (21-34) 07/10/18 06:28 - Constitutional Appears: Well - Head Exam Head Exam: ATRAUMATIC, NORMAL INSPECTION, NORMOCEPHALIC - Eye Exam Eye Exam: EOMI, Normal appearance, PERRL Pupil Exam: NORMAL ACCOMODATION, PERRL - ENT Exam ENT Exam: Mucous Membranes Moist, Normal Exam - Neck Exam Neck Exam: Full ROM, Normal Inspection. absent: Lymphadenopathy - Respiratory Exam Respiratory Exam: Decreased Breath Sounds - Cardiovascular Exam Cardiovascular Exam: REGULAR RHYTHM, +S1, +S2 - GI/Abdominal Exam GI & Abdominal Exam: Soft, Diminished Bowel Sounds - Rectal Exam Rectal Exam: Deferred
--- NOTE | 2018-07-10 16:05 | CP.PCM.PN ---
Subjective - Date & Time of Evaluation Date of Evaluation: 07/10/18 Time of Evaluation: 11:20 - Subjective Subjective: Patient seen and examined at bedside, lying down comfortably. Afebrile and in no acute distress. Denies shortness of breath, cough, chest pain, fever. Continue antibiotics per infectious disease. EPS/Ablation performed Tuesday 07/10. Nebulizer treatment. Taper Steroids. Objective - Vital Signs/Intake and Output Vital Signs (last 24 hours): Temp Pulse Resp BP Pulse Ox 97.9 F 66 20 109/66 98 07/10/18 07:00 07/10/18 07:18 07/10/18 07:00 07/10/18 07:00 07/10/18 07:00 Intake and Output: 07/10/18 07/10/18 06:59 18:59 Intake Total 1100 Balance 1100 - Medications Medications: Current Medications Darunavir (Prezista) 600 mg PO BID [facility]; Protocol Last Admin: 07/09/18 17:12 Dose: 600 mg Diltiazem HCl (Cardizem) 30 mg PO Q8H [facility] Last Admin: 07/10/18 05:41 Dose: 30 mg Emtricitabine/Tenofovir (Truvada 200 Mg-300 Mg) 1 tab PO Q24H [facility]; Protocol Last Admin: 07/09/18 17:12 Dose: 1 tab Enoxaparin Sodium (Lovenox) 40 mg SC DAILY [facility] Last Admin: 07/09/18 09:13 Dose: 40 mg Guaifenesin/Dextromethorphan (Robitussin Dm) 5 ml PO Q4H PRN PRN Reason: Cough Last Admin: 07/03/18 19:27 Dose: 5 ml Trimethoprim/Sulfamethoxazole (240 mg/ Dextrose) 250 mls @ 250 mls/hr IVPB Q6H [facility]; Protocol Last Admin: 07/10/18 04:11 Dose: 250 mls/hr Ceftriaxone Sodium 2 gm/ (Sodium Chloride) 100 mls @ 100 mls/hr IVPB Q24H [facility]; Protocol Last Admin: 07/09/18 17:10 Dose: 100 mls/hr Olanzapine (Zyprexa) 10 mg PO QPM [facility] Last Admin: 07/09/18 17:12 Dose: 10 mg Pantoprazole Sodium (Protonix Ec Tab) 40 mg PO DAILY [facility] Last Admin: 07/09/18 09:13 Dose: 40 mg Paroxetine HCl (Paxil) 10 mg PO DAILY [facility] Last Admin: 07/09/18 09:13 Dose: 10 mg Ritonavir (Norvir) 100 mg PO BIDBS [facility]; Protocol Last Admin: 07/10/18 08:29 Dose: 100 mg Trazodone HCl (Desyrel) 50 mg PO HS [facility] Last Admin: 07/09/18 21:00 Dose: 50 mg Vitamin A (Vitamin A & D Oint Ud Foilpak) 1 ea TOP DAILY [facility] Last Admin: 07/09/18 09:13 Dose: 1 ea - Labs Labs: 07/10/18 06:28 07/10/18 06:28 PT 10.7 SECONDS (9.7-12.2) 07/10/18 06:28 INR 1.0 07/10/18 06:28 APTT 22 SECONDS (21-34) 07/10/18 06:28 Assessment and Plan (1) Pneumonia Status: Acute (2) HIV (human immunodeficiency virus infection) Status: Acute
--- NOTE | 2018-07-10 17:39 | CP.PCM.PN ---
Subjective - Date & Time of Evaluation Date of Evaluation: 07/10/18 Time of Evaluation: 09:10 - Subjective Subjective: Patient seen and evaluated Denies chest pain and dyspnea No new cardiac events noted Objective - Vital Signs/Intake and Output Vital Signs (last 24 hours): Temp Pulse Resp BP Pulse Ox 97.9 F 66 20 109/66 98 07/10/18 07:00 07/10/18 07:18 07/10/18 07:00 07/10/18 07:00 07/10/18 07:00 Intake and Output: 07/10/18 07/10/18 06:59 18:59 Intake Total 1100 Balance 1100 - Medications Medications: Current Medications Darunavir (Prezista) 600 mg PO BID [facility]; Protocol Last Admin: 07/09/18 17:12 Dose: 600 mg Diltiazem HCl (Cardizem) 30 mg PO Q8H [facility]I Last Admin: 07/10/18 05:41 Dose: 30 mg Emtricitabine/Tenofovir (Truvada 200 Mg-300 Mg) 1 tab PO Q24H [facility]ARI; Protocol Last Admin: 07/09/18 17:12 Dose: 1 tab Enoxaparin Sodium (Lovenox) 40 mg SC DAILY K[facility]ARI Last Admin: 07/09/18 09:13 Dose: 40 mg Guaifenesin/Dextromethorphan (Robitussin Dm) 5 ml PO Q4H PRN PRN Reason: Cough Last Admin: 07/03/18 19:27 Dose: 5 ml Trimethoprim/Sulfamethoxazole (240 mg/ Dextrose) 250 mls @ 250 mls/hr IVPB Q6H [facility]ARI; Protocol Last Admin: 07/10/18 04:11 Dose: 250 mls/hr Ceftriaxone Sodium 2 gm/ (Sodium Chloride) 100 mls @ 100 mls/hr IVPB Q24H [facility]I; Protocol Last Admin: 07/09/18 17:10 Dose: 100 mls/hr Olanzapine (Zyprexa) 10 mg PO QPM [facility]I Last Admin: 07/09/18 17:12 Dose: 10 mg Pantoprazole Sodium (Protonix Ec Tab) 40 mg PO DAILY K[facility]ARI Last Admin: 07/09/18 09:13 Dose: 40 mg Paroxetine HCl (Paxil) 10 mg PO DAILY K[facility]I Last Admin: 07/09/18 09:13 Dose: 10 mg Ritonavir (Norvir) 100 mg PO BIDBS K[facility]ARI; Protocol Last Admin: 07/10/18 08:29 Dose: 100 mg Trazodone HCl (Desyrel) 50 mg PO HS [facility]I Last Admin: 07/09/18 21:00 Dose: 50 mg Vitamin A (Vitamin A & D Oint Ud Foilpak) 1 ea TOP DAILY K[facility]ARI Last Admin: 07/09/18 09:13 Dose: 1 ea - Labs Labs: 07/10/18 06:28 07/10/18 06:28 PT 10.7 SECONDS (9.7-12.2) 07/10/18 06:28 INR 1.0 07/10/18 06:28 APTT 22 SECONDS (21-34) 07/10/18 06:28
[2018-07-10] MEDS: Vitamins A & D Oint UD Foilpak TOP SCH (22:08)
[2018-07-10] MEDS: cefTRIAXone 2 GM in Sodium Chloride 0.9% 100 ML IVPB SCH (22:09)
[2018-07-10] MEDS: Pantoprazole 40 mg EC Tab PO SCH (22:09)
[2018-07-10] MEDS: Emtricitabine-Tenofovir 200 mg-300 mg Tab PO SCH (22:09)
[2018-07-10] MEDS: Enoxaparin 40 mg Syringe SC SCH (22:10)
[2018-07-11] MEDS: Sulfamethoxazole/Trimethoprim 240 MG in Dextrose 5% In Water 250 ML IVPB SCH ×5 (00:03→22:12)
[2018-07-11] MEDS: Enoxaparin 40 mg Syringe SC SCH (10:13)
[2018-07-11] MEDS: Pantoprazole 40 mg EC Tab PO SCH (10:14)
[2018-07-11] MEDS: Vitamins A & D Oint UD Foilpak TOP SCH (10:14)
--- NOTE | 2018-07-11 14:28 | CP.PCM.PN ---
Subjective - Date & Time of Evaluation Date of Evaluation: 07/11/18 Time of Evaluation: 14:24 - Subjective Subjective: Patient seen and examined at bedside, lying down comfortably. Afebrile and in no acute distress. Denies shortness of breath, cough, chest pain, fever. Continue antibiotics ROCEPHIN 2G Q24H IVPB FOR 7 MORE DAYS AND BACTRIM 24MG Q6H IVPB FOR 10 MORE DAYS per infectious disease. Objective - Vital Signs/Intake and Output Vital Signs (last 24 hours): Temp Pulse Resp BP Pulse Ox 97.9 F 85 20 97/61 L 94 L 07/11/18 07:57 07/11/18 08:00 07/11/18 07:57 07/11/18 07:57 07/11/18 07:57 - Medications Medications: Current Medications Darunavir (Prezista) 600 mg PO BID [facility]; Protocol Last Admin: 07/11/18 10:14 Dose: 600 mg Diltiazem HCl (Cardizem) 30 mg PO Q8H [facility] Last Admin: 07/11/18 13:21 Dose: 30 mg Emtricitabine/Tenofovir (Truvada 200 Mg-300 Mg) 1 tab PO Q24H [facility]; Protocol Last Admin: 07/10/18 22:09 Dose: Not Given Enoxaparin Sodium (Lovenox) 40 mg SC DAILY [facility] Last Admin: 07/11/18 10:13 Dose: Not Given Guaifenesin/Dextromethorphan (Robitussin Dm) 5 ml PO Q4H PRN PRN Reason: Cough Last Admin: 07/03/18 19:27 Dose: 5 ml Trimethoprim/Sulfamethoxazole (240 mg/ Dextrose) 250 mls @ 250 mls/hr IVPB Q6H [facility]; Protocol Last Admin: 07/11/18 11:03 Dose: 250 mls/hr Ceftriaxone Sodium 2 gm/ (Sodium Chloride) 100 mls @ 100 mls/hr IVPB Q24H [facility]; Protocol Last Admin: 07/10/18 22:09 Dose: Not Given Olanzapine (Zyprexa) 10 mg PO QPM [facility] Last Admin: 07/10/18 22:08 Dose: Not Given Pantoprazole Sodium (Protonix Ec Tab) 40 mg PO DAILY [facility] Last Admin: 07/11/18 10:14 Dose: 40 mg Paroxetine HCl (Paxil) 10 mg PO DAILY [facility] Last Admin: 07/11/18 10:20 Dose: 10 mg Ritonavir (Norvir) 100 mg PO BIDBS [facility]; Protocol Last Admin: 07/11/18 08:29 Dose: 100 mg Trazodone HCl (Desyrel) 50 mg PO HS [facility] Last Admin: 07/10/18 22:12 Dose: Not Given Vitamin A (Vitamin A & D Oint Ud Foilpak) 1 ea TOP DAILY [facility] Last Admin: 07/11/18 10:14 Dose: 1 ea - Labs Labs: 07/10/18 06:28 07/10/18 06:28 PT 10.7 SECONDS (9.7-12.2) 07/10/18 06:28 INR 1.0 07/10/18 06:28 APTT 22 SECONDS (21-34) 07/10/18 06:28
--- NOTE | 2018-07-11 14:46 | CP.PCM.PN ---
Subjective - Date & Time of Evaluation Date of Evaluation: 07/12/18 Time of Evaluation: 07:00 - Subjective Subjective: seen on rounds Objective - Vital Signs/Intake and Output Vital Signs (last 24 hours): Temp Pulse Resp BP Pulse Ox 97.9 F 85 20 97/61 L 94 L 07/11/18 07:57 07/11/18 08:00 07/11/18 07:57 07/11/18 07:57 07/11/18 07:57 - Medications Medications: Current Medications Darunavir (Prezista) 600 mg PO BID [facility]; Protocol Last Admin: 07/11/18 10:14 Dose: 600 mg Diltiazem HCl (Cardizem) 30 mg PO Q8H [facility] Last Admin: 07/11/18 13:21 Dose: 30 mg Emtricitabine/Tenofovir (Truvada 200 Mg-300 Mg) 1 tab PO Q24H [facility]; Protocol Last Admin: 07/10/18 22:09 Dose: Not Given Enoxaparin Sodium (Lovenox) 40 mg SC DAILY [facility] Last Admin: 07/11/18 10:13 Dose: Not Given Guaifenesin/Dextromethorphan (Robitussin Dm) 5 ml PO Q4H PRN PRN Reason: Cough Last Admin: 07/03/18 19:27 Dose: 5 ml Trimethoprim/Sulfamethoxazole (240 mg/ Dextrose) 250 mls @ 250 mls/hr IVPB Q6H [facility]; Protocol Last Admin: 07/11/18 11:03 Dose: 250 mls/hr Ceftriaxone Sodium 2 gm/ (Sodium Chloride) 100 mls @ 100 mls/hr IVPB Q24H [facility]; Protocol Last Admin: 07/10/18 22:09 Dose: Not Given Olanzapine (Zyprexa) 10 mg PO QPM [facility] Last Admin: 07/10/18 22:08 Dose: Not Given Pantoprazole Sodium (Protonix Ec Tab) 40 mg PO DAILY [facility] Last Admin: 07/11/18 10:14 Dose: 40 mg Paroxetine HCl (Paxil) 10 mg PO DAILY [facility] Last Admin: 07/11/18 10:20 Dose: 10 mg Ritonavir (Norvir) 100 mg PO BIDBS [facility]; Protocol Last Admin: 07/11/18 08:29 Dose: 100 mg Trazodone HCl (Desyrel) 50 mg PO HS [facility] Last Admin: 07/10/18 22:12 Dose: Not Given Vitamin A (Vitamin A & D Oint Ud Foilpak) 1 ea TOP DAILY [facility] Last Admin: 07/11/18 10:14 Dose: 1 ea - Labs Labs: 07/10/18 06:28 07/10/18 06:28 PT 10.7 SECONDS (9.7-12.2) 07/10/18 06:28 INR 1.0 07/10/18 06:28 APTT 22 SECONDS (21-34) 07/10/18 06:28 - Constitutional Appears: Non-toxic, Chronically Ill - Head Exam Head Exam: NORMOCEPHALIC - Eye Exam Eye Exam: absent: Scleral icterus - ENT Exam ENT Exam: Mucous Membranes Dry - Neck Exam Neck Exam: absent: Lymphadenopathy - Respiratory Exam Respiratory Exam: Decreased Breath Sounds - Cardiovascular Exam Cardiovascular Exam: REGULAR RHYTHM - GI/Abdominal Exam GI & Abdominal Exam: Distended Assessment and Plan (1) Altered mental state Status: Acute (2) CHF (congestive heart failure) Status: Acute (3) Cocaine abuse Status: Acute (4) HIV (human immunodeficiency virus infection) Status: Acute (5) Pneumonia Status: Acute (6) SVT (supraventricular tachycardia) Status: Acute (7) Schizophrenia Status: Acute - Assessment and Plan (Free Text) Assessment: cont iv rx as ordered
--- NOTE | 2018-07-11 15:50 | CP.PCM.PN ---
Subjective - Date & Time of Evaluation Date of Evaluation: 07/11/18 Time of Evaluation: 15:00 - Subjective Subjective: Patient seen and examined at bedside, lying down comfortably. Afebrile and in no acute distress. Denies shortness of breath, cough, chest pain, fever. 07/10/18: EPS/Ablation performed Continue antibiotics per infectious disease and monitor CD4 levels (HIV pt) Nebulizer treatment. Taper Steroids. Objective - Vital Signs/Intake and Output Vital Signs (last 24 hours): Temp Pulse Resp BP Pulse Ox 98.1 F 99 H 20 114/72 98 07/11/18 15:00 07/11/18 15:00 07/11/18 15:00 07/11/18 15:00 07/11/18 15:00 Intake and Output: 07/11/18 07/11/18 06:59 18:59 Intake Total 900 Output Total 500 Balance 400 - Medications Medications: Current Medications Darunavir (Prezista) 600 mg PO BID [facility]; Protocol Last Admin: 07/11/18 10:14 Dose: 600 mg Diltiazem HCl (Cardizem) 30 mg PO Q8H [facility] Last Admin: 07/11/18 13:21 Dose: 30 mg Emtricitabine/Tenofovir (Truvada 200 Mg-300 Mg) 1 tab PO Q24H [facility]; Protocol Last Admin: 07/10/18 22:09 Dose: Not Given Enoxaparin Sodium (Lovenox) 40 mg SC DAILY [facility] Last Admin: 07/11/18 10:13 Dose: Not Given Guaifenesin/Dextromethorphan (Robitussin Dm) 5 ml PO Q4H PRN PRN Reason: Cough Last Admin: 07/03/18 19:27 Dose: 5 ml Trimethoprim/Sulfamethoxazole (240 mg/ Dextrose) 250 mls @ 250 mls/hr IVPB Q6H [facility]; Protocol Last Admin: 07/11/18 11:03 Dose: 250 mls/hr Ceftriaxone Sodium 2 gm/ (Sodium Chloride) 100 mls @ 100 mls/hr IVPB Q24H [facility]; Protocol Last Admin: 07/10/18 22:09 Dose: Not Given Olanzapine (Zyprexa) 10 mg PO QPM [facility] Last Admin: 07/10/18 22:08 Dose: Not Given Pantoprazole Sodium (Protonix Ec Tab) 40 mg PO DAILY [facility] Last Admin: 07/11/18 10:14 Dose: 40 mg Paroxetine HCl (Paxil) 10 mg PO DAILY [facility] Last Admin: 07/11/18 10:20 Dose: 10 mg Ritonavir (Norvir) 100 mg PO BIDBS [facility]; Protocol Last Admin: 07/11/18 08:29 Dose: 100 mg Trazodone HCl (Desyrel) 50 mg PO HS [facility] Last Admin: 07/10/18 22:12 Dose: Not Given Vitamin A (Vitamin A & D Oint Ud Foilpak) 1 ea TOP DAILY [facility] Last Admin: 07/11/18 10:14 Dose: 1 ea - Labs Labs: 07/10/18 06:28 07/10/18 06:28 PT 10.7 SECONDS (9.7-12.2) 07/10/18 06:28 INR 1.0 07/10/18 06:28 APTT 22 SECONDS (21-34) 07/10/18 06:28 Assessment and Plan (1) Pneumonia Status: Acute (2) HIV (human immunodeficiency virus infection) Status: Acute
--- NOTE | 2018-07-11 15:53 | CP.PCM.PN ---
<Sharmin Live - Last Filed: 07/11/18 15:52> Subjective - Date & Time of Evaluation Date of Evaluation: 07/11/18 Time of Evaluation: 15:52 - Subjective Subjective: Cardiology Follow Up Note Patient seen and examined at bedside. Patient denied chest pain, palpitations, or shortness of breath. Objective - Vital Signs/Intake and Output Vital Signs (last 24 hours): Temp Pulse Resp BP Pulse Ox 98.1 F 99 H 20 114/72 98 07/11/18 15:00 07/11/18 15:00 07/11/18 15:00 07/11/18 15:00 07/11/18 15:00 Intake and Output: 07/11/18 07/11/18 06:59 18:59 Intake Total 900 Output Total 500 Balance 400 - Medications Medications: Current Medications Darunavir (Prezista) 600 mg PO BID [facility]; Protocol Last Admin: 07/11/18 10:14 Dose: 600 mg Diltiazem HCl (Cardizem) 30 mg PO Q8H [facility] Last Admin: 07/11/18 13:21 Dose: 30 mg Emtricitabine/Tenofovir (Truvada 200 Mg-300 Mg) 1 tab PO Q24H [facility]; Protocol Last Admin: 07/10/18 22:09 Dose: Not Given Enoxaparin Sodium (Lovenox) 40 mg SC DAILY [facility] Last Admin: 07/11/18 10:13 Dose: Not Given Guaifenesin/Dextromethorphan (Robitussin Dm) 5 ml PO Q4H PRN PRN Reason: Cough Last Admin: 07/03/18 19:27 Dose: 5 ml Trimethoprim/Sulfamethoxazole (240 mg/ Dextrose) 250 mls @ 250 mls/hr IVPB Q6H [facility]; Protocol Last Admin: 07/11/18 11:03 Dose: 250 mls/hr Ceftriaxone Sodium 2 gm/ (Sodium Chloride) 100 mls @ 100 mls/hr IVPB Q24H [facility]; Protocol Last Admin: 07/10/18 22:09 Dose: Not Given Olanzapine (Zyprexa) 10 mg PO QPM [facility] Last Admin: 07/10/18 22:08 Dose: Not Given Pantoprazole Sodium (Protonix Ec Tab) 40 mg PO DAILY [facility] Last Admin: 07/11/18 10:14 Dose: 40 mg Paroxetine HCl (Paxil) 10 mg PO DAILY [facility] Last Admin: 07/11/18 10:20 Dose: 10 mg Ritonavir (Norvir) 100 mg PO BIDBS [facility]; Protocol Last Admin: 07/11/18 08:29 Dose: 100 mg Trazodone HCl (Desyrel) 50 mg PO HS [facility] Last Admin: 07/10/18 22:12 Dose: Not Given Vitamin A (Vitamin A & D Oint Ud Foilpak) 1 ea TOP DAILY [facility] Last Admin: 07/11/18 10:14 Dose: 1 ea - Labs Labs: 07/10/18 06:28 07/10/18 06:28 PT 10.7 SECONDS (9.7-12.2) 07/10/18 06:28 INR 1.0 07/10/18 06:28 APTT 22 SECONDS (21-34) 07/10/18 06:28 - Additional Findings Additional findings: - Constitutional Appears: No Acute Distress - Head Exam Head Exam: NORMAL INSPECTION, NORMOCEPHALIC - Eye Exam Eye Exam: Normal appearance Pupil Exam: NORMAL ACCOMODATION - ENT Exam ENT Exam: Mucous Membranes Moist - Respiratory Exam Respiratory Exam: Decreased Breath Sounds - Cardiovascular Exam Cardiovascular Exam: +S1, +S2. absent: Tachycardia - GI/Abdominal Exam GI & Abdominal Exam: Soft, Normal Bowel Sounds - Extremities Exam Extremities Exam: Normal Inspection. absent: Pedal Edema, Tenderness - Neurological Exam Neurological Exam: Alert, Awake, Oriented x3 - Psychiatric Exam Psychiatric exam: Normal Affect, Normal Mood - Skin Skin Exam: Dry, Intact, Normal Color, Warm Assessment and Plan - Assessment and Plan (Free Text) Plan: SVTs Imaging: - EKG 06/24/18: noted SVTs at rate of 206 bpm - Repeat EKG 06/26/18: NSR at 84 BPM Management: - EP consulted, most likely outpatient follow up with Dr. Faust - Patient has known history of cocaine use - Beta bia was changed to Cardizem, due to cocaine history Case discussed with Sharmin Alvares DO, PGY2 <Wong Abrams - Last Filed: 07/11/18 20:19> Objective - Vital Signs/Intake and Output Vital Signs (last 24 hours): Temp Pulse Resp BP Pulse Ox 98.1 F 99 H 20 114/72 98 07/11/18 15:00 07/11/18 15:00 07/11/18 15:00 07/11/18 15:00 07/11/18 15:00 Intake and Output: 07/11/18 07/12/18 18:59 06:59 Intake Total 900 Output Total 500 Balance 400 - Medications Medications: Current Medications Darunavir (Prezista) 600 mg PO BID [facility]; Protocol Last Admin: 07/11/18 10:14 Dose: 600 mg Diltiazem HCl (Cardizem) 30 mg PO Q8H [facility] Last Admin: 07/11/18 13:21 Dose: 30 mg Emtricitabine/Tenofovir (Truvada 200 Mg-300 Mg) 1 tab PO Q24H [facility]; Protocol Last Admin: 07/11/18 16:25 Dose: 1 tab Enoxaparin Sodium (Lovenox) 40 mg SC DAILY [facility] Last Admin: 07/11/18 10:13 Dose: Not Given Guaifenesin/Dextromethorphan (Robitussin Dm) 5 ml PO Q4H PRN PRN Reason: Cough Last Admin: 07/03/18 19:27 Dose: 5 ml Trimethoprim/Sulfamethoxazole (240 mg/ Dextrose) 250 mls @ 250 mls/hr IVPB Q6H [facility]; Protocol Last Admin: 07/11/18 11:03 Dose: 250 mls/hr Ceftriaxone Sodium 2 gm/ (Sodium Chloride) 100 mls @ 100 mls/hr IVPB Q24H [facility]; Protocol Last Admin: 07/11/18 16:17 Dose: 100 mls/hr Olanzapine (Zyprexa) 10 mg PO QPM [facility] Last Admin: 07/10/18 22:08 Dose: Not Given Pantoprazole Sodium (Protonix Ec Tab) 40 mg PO DAILY [facility] Last Admin: 07/11/18 10:14 Dose: 40 mg Paroxetine HCl (Paxil) 10 mg PO DAILY [facility] Last Admin: 07/11/18 10:20 Dose: 10 mg Ritonavir (Norvir) 100 mg PO BIDBS [facility]; Protocol Last Admin: 07/11/18 16:26 Dose: 100 mg Trazodone HCl (Desyrel) 50 mg PO HS [facility] Last Admin: 07/10/18 22:12 Dose: Not Given Vitamin A (Vitamin A & D Oint Ud Foilpak) 1 ea TOP DAILY [facility] Last Admin: 07/11/18 10:14 Dose: 1 ea - Labs Labs: 07/10/18 06:28 07/10/18 06:28 PT 10.7 SECONDS (9.7-12.2) 07/10/18 06:28 INR 1.0 07/10/18 06:28 APTT 22 SECONDS (21-34) 07/10/18 06:28 Assessment and Plan - Assessment and Plan (Free Text) Plan: Patient seen and evaluated personally by me Plan of care d/w the resident and as documented
[2018-07-11] MEDS: cefTRIAXone 2 GM in Sodium Chloride 0.9% 100 ML IVPB SCH (16:17)
[2018-07-11] MEDS: Emtricitabine-Tenofovir 200 mg-300 mg Tab PO SCH (16:25)
--- NOTE | 2018-07-11 21:59 | CP.PCM.PN ---
Subjective - Date & Time of Evaluation Date of Evaluation: 07/11/18 Time of Evaluation: 08:10 - Subjective Subjective: clinically same Objective - Vital Signs/Intake and Output Vital Signs (last 24 hours): Temp Pulse Resp BP Pulse Ox 98.1 F 99 H 20 114/72 98 07/11/18 15:00 07/11/18 15:00 07/11/18 15:00 07/11/18 15:00 07/11/18 15:00 Intake and Output: 07/11/18 07/12/18 18:59 06:59 Intake Total 900 Output Total 500 Balance 400 - Medications Medications: Current Medications Darunavir (Prezista) 600 mg PO BID [facility]; Protocol Last Admin: 07/11/18 18:00 Dose: Not Given Diltiazem HCl (Cardizem) 30 mg PO Q8H [facility] Last Admin: 07/11/18 13:21 Dose: 30 mg Emtricitabine/Tenofovir (Truvada 200 Mg-300 Mg) 1 tab PO Q24H [facility]; Protocol Last Admin: 07/11/18 16:25 Dose: 1 tab Enoxaparin Sodium (Lovenox) 40 mg SC DAILY [facility] Last Admin: 07/11/18 10:13 Dose: Not Given Guaifenesin/Dextromethorphan (Robitussin Dm) 5 ml PO Q4H PRN PRN Reason: Cough Last Admin: 07/03/18 19:27 Dose: 5 ml Trimethoprim/Sulfamethoxazole (240 mg/ Dextrose) 250 mls @ 250 mls/hr IVPB Q6H [facility]; Protocol Last Admin: 07/11/18 17:20 Dose: 250 mls/hr Ceftriaxone Sodium 2 gm/ (Sodium Chloride) 100 mls @ 100 mls/hr IVPB Q24H [facility]; Protocol Last Admin: 07/11/18 16:17 Dose: 100 mls/hr Olanzapine (Zyprexa) 10 mg PO QPM [facility] Last Admin: 07/11/18 18:00 Dose: Not Given Pantoprazole Sodium (Protonix Ec Tab) 40 mg PO DAILY [facility] Last Admin: 07/11/18 10:14 Dose: 40 mg Paroxetine HCl (Paxil) 10 mg PO DAILY [facility] Last Admin: 07/11/18 10:20 Dose: 10 mg Ritonavir (Norvir) 100 mg PO BIDBS [facility]; Protocol Last Admin: 07/11/18 16:26 Dose: 100 mg Trazodone HCl (Desyrel) 50 mg PO HS [facility] Last Admin: 07/10/18 22:12 Dose: Not Given Vitamin A (Vitamin A & D Oint Ud Foilpak) 1 ea TOP DAILY [facility] Last Admin: 07/11/18 10:14 Dose: 1 ea - Labs Labs: 07/10/18 06:28 07/10/18 06:28 PT 10.7 SECONDS (9.7-12.2) 07/10/18 06:28 INR 1.0 07/10/18 06:28 APTT 22 SECONDS (21-34) 07/10/18 06:28 - Constitutional Appears: Well - Head Exam Head Exam: ATRAUMATIC, NORMAL INSPECTION, NORMOCEPHALIC - Eye Exam Eye Exam: EOMI, Normal appearance, PERRL Pupil Exam: NORMAL ACCOMODATION, PERRL - ENT Exam ENT Exam: Mucous Membranes Moist, Normal Exam - Neck Exam Neck Exam: Full ROM, Normal Inspection. absent: Lymphadenopathy - Respiratory Exam Respiratory Exam: Decreased Breath Sounds - Cardiovascular Exam Cardiovascular Exam: REGULAR RHYTHM, +S1, +S2 - GI/Abdominal Exam GI & Abdominal Exam: Soft, Diminished Bowel Sounds - Rectal Exam Rectal Exam: Deferred
[2018-07-12] MEDS: Sulfamethoxazole/Trimethoprim 240 MG in Dextrose 5% In Water 250 ML IVPB SCH ×4 (04:31→22:30)
[2018-07-12 09:22] LABS: HEMOGLOBIN 10.6 g/dL (11.0-16.0); MEAN CELL VOLUME 90.1 fL (81.0-99.0); MEAN CORPUSCULAR HEMOGLOBIN 29.4 pg (27.0-31.0); MEAN CORPUSCULAR HGB CONC 32.6 g/dL (33.0-37.0); MEAN PLATELET VOLUME 7.5 fL (7.2-11.7); RBC 3.62 Mil/uL (3.80-5.20); RED CELL DISTRIBUTION WIDTH 16.7 % (11.5-14.5); WHITE BLOOD COUNT 4.5 K/uL (4.8-10.8)
[2018-07-12 09:37] LABS: BLOOD UREA NITROGEN 23 mg/dL (7-17); CALCIUM 8.1 mg/dl (8.6-10.4); GFR NON-AFRICAN AMERICAN > 60
[2018-07-12] MEDS: Pantoprazole 40 mg EC Tab PO SCH (10:09)
[2018-07-12] MEDS: Enoxaparin 40 mg Syringe SC SCH (10:09)
[2018-07-12] MEDS: Vitamins A & D Oint UD Foilpak TOP SCH (10:10)
[2018-07-12 11:50] LABS: BASO % 0.2 % (0.0-2.0); EOS % 0.7 % (0.0-4.0); HEMOGLOBIN 10.5 g/dL (11.0-16.0); LYMPH # 0.2 K/uL (1.0-4.3); LYMPH % 4.7 % (20.0-40.0); MEAN CELL VOLUME 89.9 fL (81.0-99.0); MEAN CORPUSCULAR HEMOGLOBIN 29.5 pg (27.0-31.0); MEAN CORPUSCULAR HGB CONC 32.8 g/dL (33.0-37.0); MEAN PLATELET VOLUME 7.6 fL (7.2-11.7); MONO # 0.1 K/uL (0.0-0.8); MONO % 3.3 % (0.0-10.0); NEUT # 3.9 K/uL (1.8-7.0); NEUT % 91.1 % (50.0-75.0); NRBC % 0.1 % (0.0-2.0); PLATELET COUNT 68 K/uL (130-400); RBC 3.55 Mil/uL (3.80-5.20); RED CELL DISTRIBUTION WIDTH 16.6 % (11.5-14.5); WHITE BLOOD COUNT 4.3 K/uL (4.8-10.8)
[2018-07-12 12:21] LABS: ANISOCYTOSIS SLIGHT; BANDS 2 % (0-2); EOSINOPHIL 1 % (0-4); HYPOCHROMIC SLIGHT; LYMPHOCYTE 3 % (20-40); MONOCYTE 4 % (0-10); NEUTROPHIL 90 % (50-75); PLATELET ESTIMATE DECREASED (NORMAL); POIKILOCYTOSIS SLIGHT; TOTAL CELLS COUNTED 100
[2018-07-12 12:22] LABS: BURR CELLS SLIGHT
[2018-07-12] MEDS: cefTRIAXone 2 GM in Sodium Chloride 0.9% 100 ML IVPB SCH (16:13)
[2018-07-12] MEDS: Emtricitabine-Tenofovir 200 mg-300 mg Tab PO SCH (16:13)
--- NOTE | 2018-07-12 17:38 | CP.PCM.PN ---
Subjective - Date & Time of Evaluation Date of Evaluation: 07/12/18 Time of Evaluation: 08:20 - Subjective Subjective: Patient seen and examined at bedside, lying down comfortably. Afebrile and in no acute distress. Denies shortness of breath, cough, chest pain, fever. Pt is stable from pulmonary standpoint and fit for discharge. Objective - Vital Signs/Intake and Output Vital Signs (last 24 hours): Temp Pulse Resp BP Pulse Ox 98.4 F 101 H 20 99/61 L 97 07/12/18 15:00 07/12/18 16:46 07/12/18 15:00 07/12/18 15:00 07/12/18 15:00 Intake and Output: 07/12/18 07/12/18 06:59 18:59 Intake Total 1500 Balance 1500 - Medications Medications: Current Medications Darunavir (Prezista) 600 mg PO BID [facility]; Protocol Last Admin: 07/12/18 17:24 Dose: 600 mg Diltiazem HCl (Cardizem) 30 mg PO Q8H [facility] Last Admin: 07/12/18 13:16 Dose: Not Given Emtricitabine/Tenofovir (Truvada 200 Mg-300 Mg) 1 tab PO Q24H [facility]; Protocol Last Admin: 07/12/18 16:13 Dose: 1 tab Enoxaparin Sodium (Lovenox) 40 mg SC DAILY [facility] Last Admin: 07/12/18 10:09 Dose: 40 mg Guaifenesin/Dextromethorphan (Robitussin Dm) 5 ml PO Q4H PRN PRN Reason: Cough Last Admin: 07/03/18 19:27 Dose: 5 ml Trimethoprim/Sulfamethoxazole (240 mg/ Dextrose) 250 mls @ 250 mls/hr IVPB Q6H [facility]; Protocol Last Admin: 07/12/18 17:24 Dose: 250 mls/hr Ceftriaxone Sodium 2 gm/ (Sodium Chloride) 100 mls @ 100 mls/hr IVPB Q24H [facility]; Protocol Last Admin: 07/12/18 16:13 Dose: 100 mls/hr Olanzapine (Zyprexa) 10 mg PO QPM [facility] Last Admin: 07/12/18 17:23 Dose: 10 mg Pantoprazole Sodium (Protonix Ec Tab) 40 mg PO DAILY [facility] Last Admin: 07/12/18 10:09 Dose: 40 mg Paroxetine HCl (Paxil) 10 mg PO DAILY [facility] Last Admin: 07/12/18 10:09 Dose: 10 mg Ritonavir (Norvir) 100 mg PO BIDBS [facility]; Protocol Last Admin: 07/12/18 16:13 Dose: 100 mg Trazodone HCl (Desyrel) 50 mg PO HS [facility] Last Admin: 07/11/18 22:09 Dose: 50 mg Valacyclovir HCl (Valtrex) 1,000 mg PO TID [facility]; Protocol Vitamin A (Vitamin A & D Oint Ud Foilpak) 1 ea TOP DAILY [facility] Last Admin: 07/12/18 10:10 Dose: 1 ea - Labs Labs: 07/12/18 11:41 07/12/18 08:58 PT 10.7 SECONDS (9.7-12.2) 07/10/18 06:28 INR 1.0 07/10/18 06:28 APTT 22 SECONDS (21-34) 07/10/18 06:28 Assessment and Plan (1) Pneumonia Status: Acute (2) HIV (human immunodeficiency virus infection) Status: Acute
--- NOTE | 2018-07-12 21:38 | CP.PCM.PN ---
Subjective - Date & Time of Evaluation Date of Evaluation: 07/12/18 Time of Evaluation: 07:40 - Subjective Subjective: clinically same Objective - Vital Signs/Intake and Output Vital Signs (last 24 hours): Temp Pulse Resp BP Pulse Ox 98.4 F 101 H 20 99/61 L 97 07/12/18 15:00 07/12/18 17:46 07/12/18 15:00 07/12/18 15:00 07/12/18 15:00 Intake and Output: 07/12/18 07/13/18 18:59 06:59 Intake Total 850 Balance 850 - Medications Medications: Current Medications Darunavir (Prezista) 600 mg PO BID [facility]; Protocol Last Admin: 07/12/18 17:24 Dose: 600 mg Diltiazem HCl (Cardizem) 30 mg PO Q8H [facility] Last Admin: 07/12/18 13:16 Dose: Not Given Emtricitabine/Tenofovir (Truvada 200 Mg-300 Mg) 1 tab PO Q24H [facility]; Protocol Last Admin: 07/12/18 16:13 Dose: 1 tab Enoxaparin Sodium (Lovenox) 40 mg SC DAILY [facility] Last Admin: 07/12/18 10:09 Dose: 40 mg Guaifenesin/Dextromethorphan (Robitussin Dm) 5 ml PO Q4H PRN PRN Reason: Cough Last Admin: 07/03/18 19:27 Dose: 5 ml Trimethoprim/Sulfamethoxazole (240 mg/ Dextrose) 250 mls @ 250 mls/hr IVPB Q6H [facility]; Protocol Last Admin: 07/12/18 17:24 Dose: 250 mls/hr Ceftriaxone Sodium 2 gm/ (Sodium Chloride) 100 mls @ 100 mls/hr IVPB Q24H [facility]; Protocol Last Admin: 07/12/18 16:13 Dose: 100 mls/hr Olanzapine (Zyprexa) 10 mg PO QPM [facility] Last Admin: 07/12/18 17:23 Dose: 10 mg Pantoprazole Sodium (Protonix Ec Tab) 40 mg PO DAILY [facility] Last Admin: 07/12/18 10:09 Dose: 40 mg Paroxetine HCl (Paxil) 10 mg PO DAILY [facility] Last Admin: 07/12/18 10:09 Dose: 10 mg Ritonavir (Norvir) 100 mg PO BIDBS [facility]; Protocol Last Admin: 07/12/18 16:13 Dose: 100 mg Trazodone HCl (Desyrel) 50 mg PO HS [facility] Last Admin: 07/11/18 22:09 Dose: 50 mg Valacyclovir HCl (Valtrex) 1,000 mg PO TID [facility]; Protocol Last Admin: 07/12/18 18:03 Dose: 1,000 mg Vitamin A (Vitamin A & D Oint Ud Foilpak) 1 ea TOP DAILY [facility] Last Admin: 07/12/18 10:10 Dose: 1 ea - Labs Labs: 07/12/18 11:41 07/12/18 08:58 PT 10.7 SECONDS (9.7-12.2) 07/10/18 06:28 INR 1.0 07/10/18 06:28 APTT 22 SECONDS (21-34) 07/10/18 06:28 - Constitutional Appears: Well - Head Exam Head Exam: ATRAUMATIC, NORMAL INSPECTION, NORMOCEPHALIC - Eye Exam Eye Exam: EOMI, Normal appearance, PERRL Pupil Exam: NORMAL ACCOMODATION, PERRL - ENT Exam ENT Exam: Mucous Membranes Moist, Normal Exam - Neck Exam Neck Exam: Full ROM, Normal Inspection. absent: Lymphadenopathy - Respiratory Exam Respiratory Exam: Decreased Breath Sounds - Cardiovascular Exam Cardiovascular Exam: REGULAR RHYTHM, +S1, +S2 - GI/Abdominal Exam GI & Abdominal Exam: Soft, Diminished Bowel Sounds - Rectal Exam Rectal Exam: Deferred Assessment and Plan - Assessment and Plan (Free Text) Plan: For possible discharge Continue budesonide Continue Rocephin Continue anti-HIV medicine Continue GI and DVT prophylaxis Status post EP study
[2018-07-12] MEDS: guaiFENesin DM 100 mg-10 mg/5 ml UD PO PRN (22:09)
--- NOTE | 2018-07-12 22:39 | CP.PCM.PN ---
Subjective - Date & Time of Evaluation Date of Evaluation: 07/12/18 Time of Evaluation: 15:30 - Subjective Subjective: Patient seen and examined at bedside. Patient denied chest pain, palpitations, or shortness of breath. Objective - Vital Signs/Intake and Output Vital Signs (last 24 hours): Temp Pulse Resp BP Pulse Ox 98.1 F 99 H 20 114/72 98 07/11/18 15:00 07/11/18 15:00 07/11/18 15:00 07/11/18 15:00 07/11/18 15:00 Intake and Output: 07/11/18 07/11/18 06:59 18:59 Intake Total 900 Output Total 500 Balance 400 - Medications Medications: Current Medications Darunavir (Prezista) 600 mg PO BID [facility]; Protocol Last Admin: 07/11/18 10:14 Dose: 600 mg Diltiazem HCl (Cardizem) 30 mg PO Q8H [facility] Last Admin: 07/11/18 13:21 Dose: 30 mg Emtricitabine/Tenofovir (Truvada 200 Mg-300 Mg) 1 tab PO Q24H [facility]; Protocol Last Admin: 07/10/18 22:09 Dose: Not Given Enoxaparin Sodium (Lovenox) 40 mg SC DAILY [facility] Last Admin: 07/11/18 10:13 Dose: Not Given Guaifenesin/Dextromethorphan (Robitussin Dm) 5 ml PO Q4H PRN PRN Reason: Cough Last Admin: 07/03/18 19:27 Dose: 5 ml Trimethoprim/Sulfamethoxazole (240 mg/ Dextrose) 250 mls @ 250 mls/hr IVPB Q6H [facility]; Protocol Last Admin: 07/11/18 11:03 Dose: 250 mls/hr Ceftriaxone Sodium 2 gm/ (Sodium Chloride) 100 mls @ 100 mls/hr IVPB Q24H [facility]; Protocol Last Admin: 07/10/18 22:09 Dose: Not Given Olanzapine (Zyprexa) 10 mg PO QPM [facility] Last Admin: 07/10/18 22:08 Dose: Not Given Pantoprazole Sodium (Protonix Ec Tab) 40 mg PO DAILY [facility] Last Admin: 07/11/18 10:14 Dose: 40 mg Paroxetine HCl (Paxil) 10 mg PO DAILY [facility] Last Admin: 07/11/18 10:20 Dose: 10 mg Ritonavir (Norvir) 100 mg PO BIDBS [facility]; Protocol Last Admin: 07/11/18 08:29 Dose: 100 mg Trazodone HCl (Desyrel) 50 mg PO HS [facility] Last Admin: 07/10/18 22:12 Dose: Not Given Vitamin A (Vitamin A & D Oint Ud Foilpak) 1 ea TOP DAILY [facility] Last Admin: 07/11/18 10:14 Dose: 1 ea - Labs Labs: 07/10/18 06:28 07/10/18 06:28 PT 10.7 SECONDS (9.7-12.2) 07/10/18 06:28 INR 1.0 07/10/18 06:28 APTT 22 SECONDS (21-34) 07/10/18 06:28 - Additional Findings Additional findings: - Constitutional Appears: No Acute Distress - Head Exam Head Exam: NORMAL INSPECTION, NORMOCEPHALIC - Eye Exam Eye Exam: Normal appearance Pupil Exam: NORMAL ACCOMODATION - ENT Exam ENT Exam: Mucous Membranes Moist - Respiratory Exam Respiratory Exam: Decreased Breath Sounds - Cardiovascular Exam Cardiovascular Exam: +S1, +S2. absent: Tachycardia - GI/Abdominal Exam GI & Abdominal Exam: Soft, Normal Bowel Sounds - Extremities Exam Extremities Exam: Normal Inspection. absent: Pedal Edema, Tenderness - Neurological Exam Neurological Exam: Alert, Awake, Oriented x3 - Psychiatric Exam Psychiatric exam: Normal Affect, Normal Mood - Skin Skin Exam: Dry, Intact, Normal Color, Warm Assessment and Plan - Assessment and Plan (Free Text) Plan: SVTs Imaging: - EKG 06/24/18: noted SVTs at rate of 206 bpm - Repeat EKG 06/26/18: NSR at 84 BPM Management: - EP consulted, most likely outpatient follow up with Dr. Faust - Patient has known history of cocaine use - Beta bia was changed to Cardizem, due to cocaine history Objective - Vital Signs/Intake and Output Vital Signs (last 24 hours): Temp Pulse Resp BP Pulse Ox 98.4 F 101 H 20 99/61 L 97 07/12/18 15:00 07/12/18 17:46 07/12/18 15:00 07/12/18 15:00 07/12/18 15:00 Intake and Output: 07/12/18 07/13/18 18:59 06:59 Intake Total 850 Balance 850 - Medications Medications: Current Medications Darunavir (Prezista) 600 mg PO BID [facility]; Protocol Last Admin: 07/12/18 17:24 Dose: 600 mg Diltiazem HCl (Cardizem) 30 mg PO Q8H [facility] Last Admin: 07/12/18 22:11 Dose: Not Given Emtricitabine/Tenofovir (Truvada 200 Mg-300 Mg) 1 tab PO Q24H [facility]; Protocol Last Admin: 07/12/18 16:13 Dose: 1 tab Enoxaparin Sodium (Lovenox) 40 mg SC DAILY [facility] Last Admin: 07/12/18 10:09 Dose: 40 mg Guaifenesin/Dextromethorphan (Robitussin Dm) 5 ml PO Q4H PRN PRN Reason: Cough Last Admin: 07/12/18 22:09 Dose: 5 ml Trimethoprim/Sulfamethoxazole (240 mg/ Dextrose) 250 mls @ 250 mls/hr IVPB Q6H [facility]; Protocol Last Admin: 07/12/18 22:30 Dose: 250 mls/hr Ceftriaxone Sodium 2 gm/ (Sodium Chloride) 100 mls @ 100 mls/hr IVPB Q24H [facility]; Protocol Last Admin: 07/12/18 16:13 Dose: 100 mls/hr Olanzapine (Zyprexa) 10 mg PO QPM [facility] Last Admin: 07/12/18 17:23 Dose: 10 mg Pantoprazole Sodium (Protonix Ec Tab) 40 mg PO DAILY [facility] Last Admin: 07/12/18 10:09 Dose: 40 mg Paroxetine HCl (Paxil) 10 mg PO DAILY [facility] Last Admin: 07/12/18 10:09 Dose: 10 mg Ritonavir (Norvir) 100 mg PO BIDBS [facility]; Protocol Last Admin: 07/12/18 16:13 Dose: 100 mg Trazodone HCl (Desyrel) 50 mg PO HS [facility] Last Admin: 07/12/18 22:09 Dose: 50 mg Valacyclovir HCl (Valtrex) 1,000 mg PO TID [facility]; Protocol Last Admin: 07/12/18 18:03 Dose: 1,000 mg Vitamin A (Vitamin A & D Oint Ud Foilpak) 1 ea TOP DAILY [facility] Last Admin: 07/12/18 10:10 Dose: 1 ea - Labs Labs: 07/12/18 11:41 07/12/18 08:58 PT 10.7 SECONDS (9.7-12.2) 07/10/18 06:28 INR 1.0 07/10/18 06:28 APTT 22 SECONDS (21-34) 07/10/18 06:28
[2018-07-13] MEDS: Sulfamethoxazole/Trimethoprim 240 MG in Dextrose 5% In Water 250 ML IVPB SCH ×4 (03:07→21:57)
[2018-07-13 08:18] VITALS: RESP 20
[2018-07-13] MEDS: Vitamins A & D Oint UD Foilpak TOP SCH (09:53)
[2018-07-13] MEDS: Enoxaparin 40 mg Syringe SC SCH (09:53)
[2018-07-13] MEDS: Pantoprazole 40 mg EC Tab PO SCH (09:54)
--- NOTE | 2018-07-13 10:28 | CP.PCM.PN ---
<Sharmin Live - Last Filed: 07/13/18 10:25> Subjective - Date & Time of Evaluation Date of Evaluation: 07/13/18 Time of Evaluation: 10:25 - Subjective Subjective: Cardiology Follow Up Note Patient seen and examined at bedside. Patient denied chest pain, palpitations, or shortness of breath. Objective - Vital Signs/Intake and Output Vital Signs (last 24 hours): Temp Pulse Resp BP Pulse Ox 98.4 F 96 H 20 100/66 95 07/13/18 08:17 07/13/18 08:17 07/13/18 08:17 07/13/18 08:17 07/13/18 08:17 Intake and Output: 07/13/18 07/13/18 06:59 18:59 Intake Total 1000 Balance 1000 - Medications Medications: Current Medications Darunavir (Prezista) 600 mg PO BID [facility]; Protocol Last Admin: 07/13/18 09:54 Dose: 600 mg Diltiazem HCl (Cardizem) 30 mg PO Q8H [facility] Last Admin: 07/13/18 05:31 Dose: 30 mg Emtricitabine/Tenofovir (Truvada 200 Mg-300 Mg) 1 tab PO Q24H [facility]; Protocol Last Admin: 07/12/18 16:13 Dose: 1 tab Enoxaparin Sodium (Lovenox) 40 mg SC DAILY [facility] Last Admin: 07/13/18 09:53 Dose: 40 mg Guaifenesin/Dextromethorphan (Robitussin Dm) 5 ml PO Q4H PRN PRN Reason: Cough Last Admin: 07/12/18 22:09 Dose: 5 ml Trimethoprim/Sulfamethoxazole (240 mg/ Dextrose) 250 mls @ 250 mls/hr IVPB Q6H [facility]; Protocol Last Admin: 07/13/18 09:52 Dose: 250 mls/hr Ceftriaxone Sodium 2 gm/ (Sodium Chloride) 100 mls @ 100 mls/hr IVPB Q24H [facility]; Protocol Last Admin: 07/12/18 16:13 Dose: 100 mls/hr Olanzapine (Zyprexa) 10 mg PO QPM [facility] Last Admin: 07/12/18 17:23 Dose: 10 mg Pantoprazole Sodium (Protonix Ec Tab) 40 mg PO DAILY [facility] Last Admin: 07/13/18 09:54 Dose: 40 mg Paroxetine HCl (Paxil) 10 mg PO DAILY [facility] Last Admin: 07/13/18 09:54 Dose: 10 mg Ritonavir (Norvir) 100 mg PO BIDBS [facility]; Protocol Last Admin: 07/13/18 08:30 Dose: 100 mg Trazodone HCl (Desyrel) 50 mg PO HS [facility] Last Admin: 07/12/18 22:09 Dose: 50 mg Valacyclovir HCl (Valtrex) 1,000 mg PO TID [facility]; Protocol Last Admin: 07/13/18 09:54 Dose: 1,000 mg Vitamin A (Vitamin A & D Oint Ud Foilpak) 1 ea TOP DAILY [facility] Last Admin: 07/13/18 09:53 Dose: 1 ea - Labs Labs: 07/12/18 11:41 07/12/18 08:58 PT 10.7 SECONDS (9.7-12.2) 07/10/18 06:28 INR 1.0 07/10/18 06:28 APTT 22 SECONDS (21-34) 07/10/18 06:28 - Additional Findings Additional findings: - Constitutional Appears: No Acute Distress - Head Exam Head Exam: NORMAL INSPECTION, NORMOCEPHALIC - Eye Exam Eye Exam: Normal appearance Pupil Exam: NORMAL ACCOMODATION - ENT Exam ENT Exam: Mucous Membranes Moist - Respiratory Exam Respiratory Exam: Decreased Breath Sounds - Cardiovascular Exam Cardiovascular Exam: +S1, +S2. absent: Tachycardia - GI/Abdominal Exam GI & Abdominal Exam: Soft, Normal Bowel Sounds - Extremities Exam Extremities Exam: Normal Inspection. absent: Pedal Edema, Tenderness - Neurological Exam Neurological Exam: Alert, Awake, Oriented x3 - Psychiatric Exam Psychiatric exam: Normal Affect, Normal Mood - Skin Skin Exam: Dry, Intact, Normal Color, Warm Assessment and Plan - Assessment and Plan (Free Text) Plan: SVTs Imaging: - EKG 06/24/18: noted SVTs at rate of 206 bpm - Repeat EKG 06/26/18: NSR at 84 BPM Management: - EP consulted, most likely outpatient follow up with Dr. Faust - Patient has known history of cocaine use - Beta bia was changed to Cardizem, due to cocaine history Case discussed with Sharmin Alvares DO, PGY2 <Wong Abrams - Last Filed: 07/14/18 08:33> Objective - Vital Signs/Intake and Output Vital Signs (last 24 hours): Temp Pulse Resp BP Pulse Ox 98.3 F 86 20 100/64 97 07/14/18 07:00 07/14/18 07:00 07/14/18 07:00 07/14/18 07:00 07/14/18 07:00 Intake and Output: 07/14/18 07/14/18 06:59 18:59 Intake Total 950 Balance 950 - Medications Medications: Current Medications Darunavir (Prezista) 600 mg PO BID [facility]; Protocol Last Admin: 07/13/18 17:40 Dose: 600 mg Diltiazem HCl (Cardizem) 30 mg PO Q8H [facility] Last Admin: 07/14/18 06:01 Dose: 30 mg Emtricitabine/Tenofovir (Truvada 200 Mg-300 Mg) 1 tab PO Q24H [facility]; Protocol Last Admin: 07/13/18 16:04 Dose: 1 tab Enoxaparin Sodium (Lovenox) 40 mg SC DAILY [facility] Last Admin: 07/13/18 09:53 Dose: 40 mg Guaifenesin/Dextromethorphan (Robitussin Dm) 5 ml PO Q4H PRN PRN Reason: Cough Last Admin: 07/13/18 16:05 Dose: 5 ml Trimethoprim/Sulfamethoxazole (240 mg/ Dextrose) 250 mls @ 250 mls/hr IVPB Q6H [facility]; Protocol Last Admin: 07/14/18 04:09 Dose: 250 mls/hr Ceftriaxone Sodium 2 gm/ (Sodium Chloride) 100 mls @ 100 mls/hr IVPB Q24H [facility]; Protocol Last Admin: 07/13/18 16:05 Dose: 100 mls/hr Olanzapine (Zyprexa) 10 mg PO QPM [facility] Last Admin: 07/13/18 17:40 Dose: 10 mg Pantoprazole Sodium (Protonix Ec Tab) 40 mg PO DAILY [facility] Last Admin: 07/13/18 09:54 Dose: 40 mg Paroxetine HCl (Paxil) 10 mg PO DAILY [facility] Last Admin: 07/13/18 09:54 Dose: 10 mg Ritonavir (Norvir) 100 mg PO BIDBS [facility]; Protocol Last Admin: 07/14/18 08:25 Dose: 100 mg Trazodone HCl (Desyrel) 50 mg PO HS [facility] Last Admin: 07/13/18 21:57 Dose: 50 mg Valacyclovir HCl (Valtrex) 1,000 mg PO TID [facility]; Protocol Last Admin: 07/13/18 17:39 Dose: 1,000 mg Vitamin A (Vitamin A & D Oint Ud Foilpak) 1 ea TOP DAILY [facility] Last Admin: 07/13/18 09:53 Dose: 1 ea - Labs Labs: 07/12/18 11:41 07/12/18 08:58 PT 10.7 SECONDS (9.7-12.2) 07/10/18 06:28 INR 1.0 07/10/18 06:28 APTT 22 SECONDS (21-34) 07/10/18 06:28 Assessment and Plan - Assessment and Plan (Free Text) Plan: Patient seen and evaluated personally by me Plan of care d/w the resident and as documented
[2018-07-13] MEDS: Emtricitabine-Tenofovir 200 mg-300 mg Tab PO SCH (16:04)
[2018-07-13] MEDS: cefTRIAXone 2 GM in Sodium Chloride 0.9% 100 ML IVPB SCH (16:05)
[2018-07-13] MEDS: guaiFENesin DM 100 mg-10 mg/5 ml UD PO PRN (16:05)
--- NOTE | 2018-07-13 16:23 | CP.PCM.PN ---
Subjective - Date & Time of Evaluation Date of Evaluation: 07/13/18 Time of Evaluation: 16:23 Objective - Vital Signs/Intake and Output Vital Signs (last 24 hours): Temp Pulse Resp BP Pulse Ox 97.9 F 120 H 20 112/61 96 07/13/18 15:00 07/13/18 15:00 07/13/18 15:00 07/13/18 15:00 07/13/18 15:00 Intake and Output: 07/13/18 07/13/18 06:59 18:59 Intake Total 1000 750 Balance 1000 750 - Medications Medications: Current Medications Darunavir (Prezista) 600 mg PO BID [facility]; Protocol Last Admin: 07/13/18 09:54 Dose: 600 mg Diltiazem HCl (Cardizem) 30 mg PO Q8H [facility] Last Admin: 07/13/18 13:17 Dose: 30 mg Emtricitabine/Tenofovir (Truvada 200 Mg-300 Mg) 1 tab PO Q24H [facility]; Protocol Last Admin: 07/12/18 16:13 Dose: 1 tab Enoxaparin Sodium (Lovenox) 40 mg SC DAILY [facility] Last Admin: 07/13/18 09:53 Dose: 40 mg Guaifenesin/Dextromethorphan (Robitussin Dm) 5 ml PO Q4H PRN PRN Reason: Cough Last Admin: 07/13/18 16:05 Dose: 5 ml Trimethoprim/Sulfamethoxazole (240 mg/ Dextrose) 250 mls @ 250 mls/hr IVPB Q6H [facility]; Protocol Last Admin: 07/13/18 09:52 Dose: 250 mls/hr Ceftriaxone Sodium 2 gm/ (Sodium Chloride) 100 mls @ 100 mls/hr IVPB Q24H [facility]; Protocol Last Admin: 07/13/18 16:05 Dose: 100 mls/hr Olanzapine (Zyprexa) 10 mg PO QPM [facility] Last Admin: 07/12/18 17:23 Dose: 10 mg Pantoprazole Sodium (Protonix Ec Tab) 40 mg PO DAILY [facility] Last Admin: 07/13/18 09:54 Dose: 40 mg Paroxetine HCl (Paxil) 10 mg PO DAILY [facility] Last Admin: 07/13/18 09:54 Dose: 10 mg Ritonavir (Norvir) 100 mg PO BIDBS [facility]; Protocol Last Admin: 07/13/18 16:04 Dose: 100 mg Trazodone HCl (Desyrel) 50 mg PO HS [facility] Last Admin: 07/12/18 22:09 Dose: 50 mg Valacyclovir HCl (Valtrex) 1,000 mg PO TID [facility]; Protocol Last Admin: 07/13/18 13:17 Dose: 1,000 mg Vitamin A (Vitamin A & D Oint Ud Foilpak) 1 ea TOP DAILY [facility] Last Admin: 07/13/18 09:53 Dose: 1 ea - Labs Labs: 07/12/18 11:41 07/12/18 08:58 PT 10.7 SECONDS (9.7-12.2) 07/10/18 06:28 INR 1.0 07/10/18 06:28 APTT 22 SECONDS (21-34) 07/10/18 06:28 Assessment and Plan - Assessment and Plan (Free Text) Assessment: PLEASE ADMIT PATIENT UNDER DR. Barbra WINSLOW SERVICE , PLEASE CALL DR. Barbra WINSLOW UPON PATIENT ARRIVAL TO THE FACILITY PLEASE CONTINUE ANTIBIOTICS ROCEPHIN X 7 DAYS AND BACTRIM IV X 10 DAYS PLEASE CONT VALTREX PO C25PBKS PLEASE DO CBC, BMP Q 3 DAYS AND THEN PER DR[address] Barbra WINSLOW
--- NOTE | 2018-07-13 18:12 | CP.PCM.PN ---
Subjective - Date & Time of Evaluation Date of Evaluation: 07/13/18 Time of Evaluation: 08:00 - Subjective Subjective: + new VZV lesions rx in progress Objective - Vital Signs/Intake and Output Vital Signs (last 24 hours): Temp Pulse Resp BP Pulse Ox 97.9 F 118 H 20 112/61 96 07/13/18 15:00 07/13/18 16:35 07/13/18 15:00 07/13/18 15:00 07/13/18 15:00 Intake and Output: 07/13/18 07/13/18 06:59 18:59 Intake Total 1000 750 Balance 1000 750 - Medications Medications: Current Medications Darunavir (Prezista) 600 mg PO BID [facility]; Protocol Last Admin: 07/13/18 17:40 Dose: 600 mg Diltiazem HCl (Cardizem) 30 mg PO Q8H [facility] Last Admin: 07/13/18 13:17 Dose: 30 mg Emtricitabine/Tenofovir (Truvada 200 Mg-300 Mg) 1 tab PO Q24H [facility]; Protocol Last Admin: 07/13/18 16:04 Dose: 1 tab Enoxaparin Sodium (Lovenox) 40 mg SC DAILY [facility] Last Admin: 07/13/18 09:53 Dose: 40 mg Guaifenesin/Dextromethorphan (Robitussin Dm) 5 ml PO Q4H PRN PRN Reason: Cough Last Admin: 07/13/18 16:05 Dose: 5 ml Trimethoprim/Sulfamethoxazole (240 mg/ Dextrose) 250 mls @ 250 mls/hr IVPB Q6H [facility]; Protocol Last Admin: 07/13/18 17:39 Dose: 250 mls/hr Ceftriaxone Sodium 2 gm/ (Sodium Chloride) 100 mls @ 100 mls/hr IVPB Q24H [facility]; Protocol Last Admin: 07/13/18 16:05 Dose: 100 mls/hr Olanzapine (Zyprexa) 10 mg PO QPM [facility] Last Admin: 07/13/18 17:40 Dose: 10 mg Pantoprazole Sodium (Protonix Ec Tab) 40 mg PO DAILY [facility] Last Admin: 07/13/18 09:54 Dose: 40 mg Paroxetine HCl (Paxil) 10 mg PO DAILY [facility] Last Admin: 07/13/18 09:54 Dose: 10 mg Ritonavir (Norvir) 100 mg PO BIDBS [facility]; Protocol Last Admin: 07/13/18 16:04 Dose: 100 mg Trazodone HCl (Desyrel) 50 mg PO HS [facility] Last Admin: 07/12/18 22:09 Dose: 50 mg Valacyclovir HCl (Valtrex) 1,000 mg PO TID [facility]; Protocol Last Admin: 07/13/18 17:39 Dose: 1,000 mg Vitamin A (Vitamin A & D Oint Ud Foilpak) 1 ea TOP DAILY [facility] Last Admin: 07/13/18 09:53 Dose: 1 ea - Labs Labs: 07/12/18 11:41 07/12/18 08:58 PT 10.7 SECONDS (9.7-12.2) 07/10/18 06:28 INR 1.0 07/10/18 06:28 APTT 22 SECONDS (21-34) 07/10/18 06:28 - Constitutional Appears: Non-toxic, Cachectic, Chronically Ill - Head Exam Head Exam: NORMOCEPHALIC - Eye Exam Eye Exam: absent: Scleral icterus - ENT Exam ENT Exam: Mucous Membranes Dry - Neck Exam Neck Exam: absent: Lymphadenopathy - Respiratory Exam Respiratory Exam: Decreased Breath Sounds - Cardiovascular Exam Cardiovascular Exam: REGULAR RHYTHM - GI/Abdominal Exam GI & Abdominal Exam: Distended, Soft - Rectal Exam Rectal Exam: Deferred - Exam Exam: NORMAL INSPECTION Assessment and Plan (1) Altered mental state Status: Acute (2) CHF (congestive heart failure) Status: Acute (3) Cocaine abuse Status: Acute (4) HIV (human immunodeficiency virus infection) Status: Acute (5) Pneumonia Status: Acute (6) SVT (supraventricular tachycardia) Status: Acute (7) Schizophrenia Status: Acute
--- NOTE | 2018-07-13 20:14 | CP.PCM.PN ---
Subjective - Date & Time of Evaluation Date of Evaluation: 07/13/18 Time of Evaluation: 08:15 - Subjective Subjective: clinically same Objective - Vital Signs/Intake and Output Vital Signs (last 24 hours): Temp Pulse Resp BP Pulse Ox 97.9 F 118 H 20 112/61 96 07/13/18 15:00 07/13/18 16:35 07/13/18 15:00 07/13/18 15:00 07/13/18 15:00 Intake and Output: 07/13/18 07/14/18 18:59 06:59 Intake Total 750 Balance 750 - Medications Medications: Current Medications Darunavir (Prezista) 600 mg PO BID [facility]; Protocol Last Admin: 07/13/18 17:40 Dose: 600 mg Diltiazem HCl (Cardizem) 30 mg PO Q8H [facility] Last Admin: 07/13/18 13:17 Dose: 30 mg Emtricitabine/Tenofovir (Truvada 200 Mg-300 Mg) 1 tab PO Q24H [facility]; Protocol Last Admin: 07/13/18 16:04 Dose: 1 tab Enoxaparin Sodium (Lovenox) 40 mg SC DAILY [facility] Last Admin: 07/13/18 09:53 Dose: 40 mg Guaifenesin/Dextromethorphan (Robitussin Dm) 5 ml PO Q4H PRN PRN Reason: Cough Last Admin: 07/13/18 16:05 Dose: 5 ml Trimethoprim/Sulfamethoxazole (240 mg/ Dextrose) 250 mls @ 250 mls/hr IVPB Q6H [facility]; Protocol Last Admin: 07/13/18 17:39 Dose: 250 mls/hr Ceftriaxone Sodium 2 gm/ (Sodium Chloride) 100 mls @ 100 mls/hr IVPB Q24H [facility]; Protocol Last Admin: 07/13/18 16:05 Dose: 100 mls/hr Olanzapine (Zyprexa) 10 mg PO QPM [facility] Last Admin: 07/13/18 17:40 Dose: 10 mg Pantoprazole Sodium (Protonix Ec Tab) 40 mg PO DAILY [facility] Last Admin: 07/13/18 09:54 Dose: 40 mg Paroxetine HCl (Paxil) 10 mg PO DAILY [facility] Last Admin: 07/13/18 09:54 Dose: 10 mg Ritonavir (Norvir) 100 mg PO BIDBS [facility]; Protocol Last Admin: 07/13/18 16:04 Dose: 100 mg Trazodone HCl (Desyrel) 50 mg PO HS [facility] Last Admin: 07/12/18 22:09 Dose: 50 mg Valacyclovir HCl (Valtrex) 1,000 mg PO TID [facility]; Protocol Last Admin: 07/13/18 17:39 Dose: 1,000 mg Vitamin A (Vitamin A & D Oint Ud Foilpak) 1 ea TOP DAILY [facility] Last Admin: 07/13/18 09:53 Dose: 1 ea - Labs Labs: 07/12/18 11:41 07/12/18 08:58 PT 10.7 SECONDS (9.7-12.2) 07/10/18 06:28 INR 1.0 07/10/18 06:28 APTT 22 SECONDS (21-34) 07/10/18 06:28 - Constitutional Appears: Well - Head Exam Head Exam: ATRAUMATIC, NORMAL INSPECTION, NORMOCEPHALIC - Eye Exam Eye Exam: EOMI, Normal appearance, PERRL Pupil Exam: NORMAL ACCOMODATION, PERRL - ENT Exam ENT Exam: Mucous Membranes Moist, Normal Exam - Neck Exam Neck Exam: Full ROM, Normal Inspection. absent: Lymphadenopathy - Respiratory Exam Respiratory Exam: Decreased Breath Sounds - Cardiovascular Exam Cardiovascular Exam: REGULAR RHYTHM, +S1, +S2 - GI/Abdominal Exam GI & Abdominal Exam: Soft, Diminished Bowel Sounds - Rectal Exam Rectal Exam: Deferred
[2018-07-14] MEDS: Sulfamethoxazole/Trimethoprim 240 MG in Dextrose 5% In Water 250 ML IVPB SCH ×2 (04:09→09:41)
[2018-07-14 07:36] VITALS: O2SAT 97
[2018-07-14] MEDS: Enoxaparin 40 mg Syringe SC SCH (09:49)
[2018-07-14] MEDS: Vitamins A & D Oint UD Foilpak TOP SCH (09:49)
[2018-07-14] MEDS: Pantoprazole 40 mg EC Tab PO SCH (09:49)
[2018-07-14 12:42] VITALS: BP 100/59; PULSE 100; TEMP 98.6
== END 2018-07-14 13:20 | DRG 974 ==
LOC: C.ER 20:54 → C.9E 23:35 → C.9I 06-25 05:16 → C.5S 07-02 14:09
PROVIDERS: ADMIT Internal Medicine Nephrology; ATTEND Internal Medicine Nephrology
PROC: 3E033XZ Introduction of Vasopressor into Peripheral Vein, Percutaneous Approach (ICD-10-PCS; 2018-06-25)
PROC: 5A09357 Assistance with Respiratory Ventilation, Less than 24 Consecutive Hours, Continuous Positive Airway Pressure (ICD-10-PCS; 2018-06-25)
PROC: 30233N1 Transfusion of Nonautologous Red Blood Cells into Peripheral Vein, Percutaneous Approach (ICD-10-PCS; 2018-06-26)
PROC: 02HV33Z Insertion of Infusion Device into Superior Vena Cava, Percutaneous Approach (ICD-10-PCS; 2018-06-27)
PROC: 02HV33Z Insertion of Infusion Device into Superior Vena Cava, Percutaneous Approach (ICD-10-PCS; principal; 2018-07-06)
DX: B20 Human immunodeficiency virus [HIV] disease (principal); A41.9 Sepsis, unspecified organism; J96.00 Acute respiratory failure, unspecified whether with hypoxia or hypercapnia; G93.41 Metabolic encephalopathy; B59 Pneumocystosis; R65.20 Severe sepsis without septic shock; I47.1 Supraventricular tachycardia; N17.9 Acute kidney failure, unspecified; F14.10 Cocaine abuse, uncomplicated; F20.9 Schizophrenia, unspecified; F17.210 Nicotine dependence, cigarettes, uncomplicated; F41.9 Anxiety disorder, unspecified; Z91.19 Patient's noncompliance with other medical treatment and regimen; E86.0 Dehydration; I50.9 Heart failure, unspecified

== ENCOUNTER 2018-12-31 23:27 | Emergency (ER) | payer MEDICARE, MEDICAID ==
[2018-12-31 23:27] VITALS: PULSE 90; BMI 21.1
[2018-12-31 23:50] VITALS: RESP 20
--- NOTE | 2019-01-01 00:16 | C.PDOC ---
History Of Present Illness Patient states that she has a cough, and lost her medications and has not slept in a while. Not hearing voices, denies any suicidal or homicidal ideation. Speaking in complete sentences Time Seen by Provider: 01/01/19 00:15 Chief Complaint (Nursing): Cough, Cold, Congestion History Per: Patient History/Exam Limitations: no limitations Onset/Duration Of Symptoms: Days Current Symptoms Are (Timing): Still Present Severity: Mild Pain Scale Rating Of: 1 Reports Recently: Seen In ED Recent travel outside of the [place]: No Additional History Per: Patient Past Medical History Reviewed: Historical Data, Nursing Documentation, Vital Signs Vital Signs: Last Vital Signs Temp 101.5 F H 12/31/18 23:42 Pulse 97 H 12/31/18 23:42 Resp 20 12/31/18 23:42 BP 99/65 L 12/31/18 23:42 Pulse Ox 96 12/31/18 23:42 Primary Care Provider: FAMILY PROVIDER,NO - Medical History PMH: Anxiety, Bipolar Disorder, CHF, HIV, HTN, Paranoia, Schizophrenia Denies: Diabetes, Hepatitis, Chronic Kidney Disease, Seizures, Sexually Transmitted Disease - [facility] Procedures ASSISTANCE WITH RESPIRATORY VENTILATION, <24 HRS, CPAP (06/24/18) GROUP PSYCHOTHERAPY (10/17/17) INDIVIDUAL PSYCHOTHERAPY, SUPPORTIVE (10/17/17) INSERTION OF INFUSION DEV INTO SUP VENA CAVA, PERC APPROACH (06/24/18) INTRODUCTION OF VASOPRESSOR INTO PERIPH VEIN, PERC APPROACH (06/24/18) MEDICATION MANAGEMENT (10/17/17) MEDS MGMT FOR SUBSTANCE ABUSE TREATMENT, OTH REPL MED (10/17/17) TRANSFUSE NONAUT RED BLOOD CELLS IN PERIPH VEIN, PERC (06/24/18) Family History: States: Unknown Family Hx - Social History Hx Tobacco Use: Yes Hx Alcohol Use: No Hx Substance Use: Yes (cocaine) - Immunization History Hx Tetanus Toxoid Vaccination: No Hx Influenza Vaccination: No Hx Pneumococcal Vaccination: No Review Of Systems Constitutional: Negative for: Fever, Chills ENT: Negative for: Throat Pain Cardiovascular: Negative for: Chest Pain Respiratory: Negative for: Shortness of Breath Gastrointestinal: Negative for: Abdominal Pain Genitourinary: Negative for: Dysuria Neurological: Negative for: Confusion Psych: Positive for: Anxiety Physical Exam - Physical Exam Appears: Non-toxic, No Acute Distress Skin: Warm, Dry Oral Mucosa: Moist Throat: No Erythema Neck: Supple Chest: Symmetrical Cardiovascular: Rhythm Regular Respiratory: No Rales, Rhonchi, No Wheezing Gastrointestinal/Abdominal: Soft, No Tenderness, No Distention Back: No CVA Tenderness Neurological/Psych: Oriented x3 Gait: Steady ED Course And Treatment O2 Sat by Pulse Oximetry: 96 Pulse Ox Interpretation: Normal - Radiology CXR: Interpreted by Me, Viewed By Me CXR Interpretation: Yes: Infiltrates (? rll ). No: Fracture, Pnemothorax Reevaluation Time: 04:05 Reassessment Condition: Improved Medical Decision Making Medical Decision Making: Upon provider reevaluation patient is feeling better, is medically stable, and requires no further treatment in the ED at this time. Patient will be discharged home with Rx for z pack, skelaxin. Counseling was provided and all questions were answered regarding diagnosis and need for follow up with the referred clinic. There is agreement to discharge plan. Return if symptoms persist or worsen. Disposition Counseled Patient/Family Regarding: Studies Performed, Diagnosis, Need For Followup - Disposition Referrals: [facility] [Outside] Disposition: HOME/ ROUTINE Disposition Time: 00:16 Condition: FAIR Prescriptions: Azithromycin [Zithromax Tri-Nacho] 500 mg PO DAILY #3 tablet Metaxalone [Skelaxin] 800 mg PO TID PRN #15 tablet PRN Reason: Muscle Spasm Instructions: Low Back Pain (DC), Upper Respiratory Infection (ED) Forms: [employer] (Spanish) - Clinical Impression Clinical Impression: URI (upper respiratory infection), Back pain
[2019-01-01 04:05] VITALS: O2SAT 96
[2019-01-01 04:45] VITALS: BP 117/80; PULSE 88; TEMP 98.9
--- NOTE | 2019-01-01 13:35 | RAD ---
Date of service: 01/01/2019 HISTORY: cough COMPARISON: 07/06/2018 TECHNIQUE: Chest PA and lateral views FINDINGS: LUNGS: An interval right lower lobe airspace opacity compatible with within infiltrate is suggested. Currently no left basal infiltrate is suggested. PLEURA: No significant pleural effusion identified. No pneumothorax apparent. CARDIOVASCULAR: No aortic atherosclerotic calcification present. Normal cardiac size. No pulmonary vascular congestion. OSSEOUS STRUCTURES: No significant abnormalities. VISUALIZED UPPER ABDOMEN: Normal. OTHER FINDINGS: None. IMPRESSION: Right basal infiltrate compatible with pneumonia. No left basal current infiltrate. Comments: Study marked for PA review . Comments: No preliminary ER impression at this time.
== END 2019-01-01 05:27 | disposition home or self-care (01) ==
LOC: C.ER 23:27
DX: J06.9 Acute upper respiratory infection, unspecified (principal); M54.9 Dorsalgia, unspecified

== ENCOUNTER 2019-01-05 03:49 | Observation (INO) | payer MEDICARE, MEDICAID ==
[2019-01-05 03:50] VITALS: PULSE 90; BMI 21.1
--- NOTE | 2019-01-05 03:58 | C.PDOC ---
History Of Present Illness 58 y/o female is brought in via ALS for palpitations since 3am. ALS found patient with SVT of 220 bpm. Patient given 6 mg of adenosine. Heart rate returned to normal sinus of 80-90 bpm. Denies any chest pain, diaphoresis, dizziness, or vomiting. Patient is speaking complete sentences. Time Seen by Provider: 01/05/19 03:57 Chief Complaint (Nursing): Palpitations History Per: EMS History/Exam Limitations: no limitations Onset/Duration Of Symptoms: Hrs Current Symptoms Are (Timing): Still Present Severity: Moderate Pain Scale Rating Of: 4 Reports Recently: Seen In ED, Treated By A Physician, Hospitalized Recent travel outside of the [place]: No Additional History Per: EMS Past Medical History Reviewed: Historical Data, Nursing Documentation, Vital Signs - Medical History PMH: Anxiety, Bipolar Disorder, CHF, HIV, Paranoia, Schizophrenia Denies: Diabetes, Hepatitis, HTN, Chronic Kidney Disease, Seizures, Sexually Transmitted Disease - [facility] Procedures ASSISTANCE WITH RESPIRATORY VENTILATION, <24 HRS, CPAP (06/24/18) GROUP PSYCHOTHERAPY (10/17/17) INDIVIDUAL PSYCHOTHERAPY, SUPPORTIVE (10/17/17) INSERTION OF INFUSION DEV INTO SUP VENA CAVA, PERC APPROACH (06/24/18) INTRODUCTION OF VASOPRESSOR INTO PERIPH VEIN, PERC APPROACH (06/24/18) MEDICATION MANAGEMENT (10/17/17) MEDS MGMT FOR SUBSTANCE ABUSE TREATMENT, OTH REPL MED (10/17/17) TRANSFUSE NONAUT RED BLOOD CELLS IN PERIPH VEIN, PERC (06/24/18) Family History: States: No Known Family Hx - Social History Hx Tobacco Use: Yes Hx Alcohol Use: No Hx Substance Use: Yes (cocaine) - Immunization History Hx Tetanus Toxoid Vaccination: No Hx Influenza Vaccination: No Hx Pneumococcal Vaccination: No Review Of Systems Constitutional: Negative for: Fever, Chills ENT: Negative for: Throat Pain Cardiovascular: Positive for: Palpitations. Negative for: Chest Pain Respiratory: Negative for: Cough, Shortness of Breath Gastrointestinal: Negative for: Nausea, Vomiting Genitourinary: Negative for: Dysuria Musculoskeletal: Negative for: Back Pain Skin: Negative for: Rash Neurological: Negative for: Weakness, Numbness, Dizziness Psych: Negative for: Anxiety Physical Exam - Physical Exam Appears: Non-toxic Skin: Warm, Dry Head: Normacephalic Eye(s): bilateral: Normal Inspection Oral Mucosa: Moist Neck: Trachea Midline, Supple Chest: Symmetrical, No Tenderness Cardiovascular: Rhythm Regular Respiratory: No Rales, No Rhonchi, No Wheezing Gastrointestinal/Abdominal: Soft, No Tenderness, No Distention Back: No CVA Tenderness Extremity: No Tenderness Extremity: Bilateral: Atraumatic, Normal Color And Temperature Pulses: Left Dorsalis Pedis: Normal, Right Dorsalis Pedis: Normal Neurological/Psych: Oriented x3 Gait: Unable To Assess ED Course And Treatment - Laboratory Results Result Diagrams: 01/05/19 04:17 01/05/19 04:17 ECG: Interpreted By Me, Viewed By Me ECG Rhythm: Sinus Rhythm (93), Nonspecific Changes O2 Sat by Pulse Oximetry: 100 (RA) Pulse Ox Interpretation: Normal - Radiology CXR: Interpreted by Me, Viewed By Me CXR Interpretation: No: Infiltrates, Fracture, Pnemothorax Progress Note: no asa given as pt allergic to nsaids Medical Decision Making Medical Decision Making: Plan: --EKG --Labs --Chest XR --UA Disposition Discussed With Dr.: Isiah Tapia Comment: acceptd the pt on his service and took over the care at 4:57AM Counseled Patient/Family Regarding: Studies Performed, Diagnosis - Disposition Disposition: HOSPITALIZED Disposition Time: 03:58 Condition: FAIR - Clinical Impression Clinical Impression: Palpitations, SVT (supraventricular tachycardia) - Scribe Statement The provider has reviewed the documentation as recorded by the Jose Miguel Garrido Provider Attestation: All medical record entries made by the Brendaibe were at my direction and personally dictated by me. I have reviewed the chart and agree that the record accurately reflects my personal performance of the history, physical exam, medical decision making, and the department course for this patient. I have also personally directed, reviewed, and agree with the discharge instructions and disposition. Decision To Admit - Pt Status Changed To: Hospital Disposition Of: Observation - . Bed Request Type: Telemetry Admitting Physician: Isiah Tapia Patient Diagnosis: Palpitations, SVT (supraventricular tachycardia)
[2019-01-05 04:23] LABS: BASO % 0.5 % (0.0-2.0); EOS # 0.1 K/uL (0.0-0.7); EOS % 1.9 % (0.0-4.0); HEMOGLOBIN 10.7 g/dL (11.0-16.0); LYMPH # 1.4 K/uL (1.0-4.3); LYMPH % 32.2 % (20.0-40.0); MEAN CELL VOLUME 83.2 fL (81.0-99.0); MEAN CORPUSCULAR HEMOGLOBIN 27.7 pg (27.0-31.0); MEAN CORPUSCULAR HGB CONC 33.3 g/dL (33.0-37.0); MEAN PLATELET VOLUME 7.8 fL (7.2-11.7); MONO # 0.7 K/uL (0.0-0.8); MONO % 16.3 % (0.0-10.0); NEUT # 2.2 K/uL (1.8-7.0); NEUT % 49.1 % (50.0-75.0); RBC 3.86 Mil/uL (3.80-5.20); WHITE BLOOD COUNT 4.4 K/uL (4.8-10.8)
[2019-01-05 04:31] LABS: INR 1.3; PARTIAL THROMBOPLASTIN TIME 28.4 SECONDS (21-34); PROTHROMBIN TIME 14.6 SECONDS (9.7-12.2)
[2019-01-05 04:35] LABS: ALB/GLOB RATIO 0.7 (1.0-2.1); ALBUMIN 3.4 g/dL (3.5-5.0); ALT/SGPT 9 U/L (9-52); AST/SGOT 19 U/L (14-36); BLOOD UREA NITROGEN 19 mg/dL (7-17); CALCIUM 9.2 mg/dl (8.6-10.4); GFR NON-AFRICAN AMERICAN > 60
[2019-01-05] MEDS ORDERED: Permethrin 1% Kit 59 ML BOTTLE TOP ONE (09:00)
[2019-01-05] MEDS: Emtricitabine-Tenofovir 200 mg-300 mg Tab PO SCH (10:57)
--- NOTE | 2019-01-05 19:29 | RAD ---
Date of service: 01/05/2019 PROCEDURE: CHEST RADIOGRAPH, 1 VIEW HISTORY: Palpations COMPARISON: 01/01/2019 FINDINGS: LUNGS: Interval improvement in the previously seen right lower lobe infiltrate. Otherwise no significant interval changes. PLEURA: No pneumothorax or pleural fluid seen. CARDIOVASCULAR: No aortic atherosclerotic calcification present. Normal. OSSEOUS STRUCTURES: No significant abnormalities. VISUALIZED UPPER ABDOMEN: Normal. OTHER FINDINGS: None. IMPRESSION: Interval improvement in the left lower lobe infiltrate.
[2019-01-05 19:34] LABS: CK-MB 0.39 ng/mL (0.0-3.38)
--- NOTE | 2019-01-05 20:44 | CP.PCM.HP ---
Past Patient History - Infectious Disease Hx of Infectious Diseases: None - Tetanus Immunizations Tetanus Immunization: Unknown - Past Medical History & Family History Past Medical History?: Yes - Past Social History Smoking Status: Heavy Smoker > 10 Cigarettes Daily - CARDIAC Hx Congestive Heart Failure: Yes Hx Hypertension: No - PULMONARY Hx Respiratory Disorders: No Hx Tuberculosis: No - NEUROLOGICAL Hx Seizures: No - HEENT Hx HEENT Problems: No - RENAL Hx Chronic Kidney Disease: No - ENDOCRINE/METABOLIC Hx Endocrine Disorders: No - HEMATOLOGICAL/ONCOLOGICAL Hx Human Immunodeficiency Virus (HIV): Yes - INTEGUMENTARY Hx Dermatological Problems: No - MUSCULOSKELETAL/RHEUMATOLOGICAL Hx Musculoskeletal Disorders: Yes Hx Arthritis: Yes - GASTROINTESTINAL Hx Gastrointestinal Disorders: No - GENITOURINARY/GYNECOLOGICAL Hx Sexually Transmitted Disorders: No - PSYCHIATRIC Hx Anxiety: Yes Hx Bipolar Disorder: Yes Hx Paranoia: Yes Hx Schizophrenia: Yes Hx Substance Use: Yes (cocaine) - SURGICAL HISTORY Hx Amputation: Yes (R Big Toe) - ANESTHESIA Hx Anesthesia: Yes Hx Anesthesia Reactions: No Meds Allergies/Adverse Reactions: Allergies Allergy/AdvReac Type Severity Reaction Status Date / Time ibuprofen Allergy ANAPHYLAXIS Verified 01/05/19 03:59 Physical Exam - Constitutional Appears: Well - Head Exam Head Exam: ATRAUMATIC, NORMAL INSPECTION, NORMOCEPHALIC - Eye Exam Eye Exam: EOMI, Normal appearance, PERRL Pupil Exam: NORMAL ACCOMODATION, PERRL - ENT Exam ENT Exam: Mucous Membranes Moist, Normal Exam - Neck Exam Neck exam: Positive for: Normal Inspection - Respiratory Exam Respiratory Exam: Decreased Breath Sounds - Cardiovascular Exam Cardiovascular Exam: REGULAR RHYTHM, +S1, +S2 - GI/Abdominal Exam GI & Abdominal Exam: Diminished Bowel Sounds, Soft - Rectal Exam Rectal Exam: Deferred - Neurological Exam Neurological exam: Oriented x3 Results - Vital Signs Recent Vital Signs: Last Vital Signs Temp 97.9 F 01/05/19 15:00 Pulse 73 01/05/19 15:00 Resp 20 01/05/19 15:00 BP 83/53 L 01/05/19 15:00 Pulse Ox 98 01/05/19 15:00 - Labs Result Diagrams: 01/05/19 04:17 01/05/19 04:17 Labs: Laboratory Results - last 24 hr 01/05/19 01/05/19 01/05/19 04:17 04:17 04:17 WBC 4.4 L RBC 3.86 Hgb 10.7 L Hct 32.1 L MCV 83.2 D MCH 27.7 MCHC 33.3 RDW 13.0 Plt Count 340 D MPV 7.8 Neut % (Auto) 49.1 L Lymph % (Auto) 32.2 [place] % (Auto) 16.3 H Eos % (Auto) 1.9 Baso % (Auto) 0.5 Neut # (Auto) 2.2 Lymph # (Auto) 1.4 [place] # (Auto) 0.7 Eos # (Auto) 0.1 Baso # (Auto) 0.0 PT 14.6 H INR 1.3 APTT 28.4 Sodium 138 Potassium 3.8 Chloride 106 Carbon Dioxide 24 Anion Gap 12 BUN 19 H Creatinine 0.8 Est GFR ( Amer) > 60 Est GFR (Non-Af Amer) > 60 Random Glucose 92 Calcium 9.2 Total Bilirubin 0.2 AST 19 ALT 9 D Alkaline Phosphatase 80 Total Creatine Kinase CK-MB (Mass) Troponin I < 0.0120 Total Protein 8.4 H Albumin 3.4 L D Globulin 5.0 H Albumin/Globulin Ratio 0.7 L TSH 3rd Generation 2.23 01/05/19 01/05/19 14:02 19:08 WBC RBC Hgb Hct MCV MCH MCHC RDW Plt Count MPV Neut % (Auto) Lymph % (Auto) [place] % (Auto) Eos % (Auto) Baso % (Auto) Neut # (Auto) Lymph # (Auto) [place] # (Auto) Eos # (Auto) Baso # (Auto) PT INR APTT Sodium Potassium Chloride Carbon Dioxide Anion Gap BUN Creatinine Est GFR ( Amer) Est GFR (Non-Af Amer) Random Glucose Calcium Total Bilirubin AST ALT Alkaline Phosphatase Total Creatine Kinase 51 38 CK-MB (Mass) 0.70 0.39 Troponin I < 0.0120 < 0.0120 Total Protein Albumin Globulin Albumin/Globulin Ratio TSH 3rd Generation
--- NOTE | 2019-01-05 22:09 | CP.PCM.CON ---
History of Present Illness - History of Present Illness History of Present Illness: Reason For Consultation: SVT 58 F with h/o schizophrenia, h/o svt, HIV/AIDS, non compliance with the treatment, tobacco, cocaine abuse, as per information available in the chart as patient was sob and had difficulty in speaking due to dry mouth, she was found in grocery store, sob and EMS called. In ER patient's HR in mid 200s, she was treated with adenosine and initially responded to sinus rhythm but then reverted back and would not respond. She was found to be dehydrated, hypotensive, b/l PNA on the CXR, increased RR, OSVALDO, urine showing cocaine +. PMH as above Family history not contributory Allergies reviewed Meds unknown at time of exam Social tobacco abuse, cocaine abuse Review of Systems - Review of Systems All systems: reviewed and no additional remarkable complaints except (HPI) Physical Exam - Additional Findings Additional findings: * HEENT NAILA, no thrush * Neck Supple * Chest b/l some rattling noise in lower lobes, no wheezing, RR in 40's * CVS sinus vs MAT * PA soft, nt bs present * Ext no edema * Skin dry, reduced turgor * [employer] awake oriented x3 no fnd * Assessment & Plan - Assessment and Plan (Free Text) Assessment: * HIV/AIDS, noncompliance * SVT, MAT * OSVALDO * Dehydration * Cocaine abuse * Schizopherenia * Immunochrompomised. Plan: * Cardizem/IVF * CD4 panel * IVF aggressive * GI/DVT prophylaxis Past Patient History - Infectious Disease Hx of Infectious Diseases: None - Tetanus Immunizations Tetanus Immunization: Unknown - Past Medical History & Family History Past Medical History?: Yes - Past Social History Smoking Status: Heavy Smoker > 10 Cigarettes Daily - CARDIAC Hx Congestive Heart Failure: Yes Hx Hypertension: No - PULMONARY Hx Respiratory Disorders: No Hx Tuberculosis: No - NEUROLOGICAL Hx Seizures: No - HEENT Hx HEENT Problems: No - RENAL Hx Chronic Kidney Disease: No - ENDOCRINE/METABOLIC Hx Endocrine Disorders: No - HEMATOLOGICAL/ONCOLOGICAL Hx Human Immunodeficiency Virus (HIV): Yes - INTEGUMENTARY Hx Dermatological Problems: No - MUSCULOSKELETAL/RHEUMATOLOGICAL Hx Musculoskeletal Disorders: Yes Hx Arthritis: Yes - GASTROINTESTINAL Hx Gastrointestinal Disorders: No - GENITOURINARY/GYNECOLOGICAL Hx Sexually Transmitted Disorders: No - PSYCHIATRIC Hx Anxiety: Yes Hx Bipolar Disorder: Yes Hx Paranoia: Yes Hx Schizophrenia: Yes Hx Substance Use: Yes (cocaine) - SURGICAL HISTORY Hx Amputation: Yes (R Big Toe) - ANESTHESIA Hx Anesthesia: Yes Hx Anesthesia Reactions: No Meds Allergies/Adverse Reactions: Allergies Allergy/AdvReac Type Severity Reaction Status Date / Time ibuprofen Allergy ANAPHYLAXIS Verified 01/05/19 03:59 - Medications Medications: Current Medications Darunavir (Prezista) 600 mg PO BID [facility]; Protocol Last Admin: 01/05/19 18:08 Dose: 600 mg Diltiazem HCl (Cardizem) 30 mg PO Q8 [facility] Last Admin: 01/05/19 13:20 Dose: 30 mg Emtricitabine/Tenofovir (Truvada 200 Mg-300 Mg) 1 tab PO DAILY [facility]; Protocol Last Admin: 01/05/19 10:57 Dose: 1 tab Olanzapine (Zyprexa) 20 mg PO DAILY [facility] Last Admin: 01/05/19 10:56 Dose: 20 mg Oxybutynin Chloride (Ditropan Xl) 15 mg PO DAILY [facility] Last Admin: 01/05/19 13:20 Dose: 15 mg Paroxetine HCl (Paxil) 10 mg PO DAILY [facility] Last Admin: 01/05/19 10:55 Dose: 10 mg Ritonavir (Norvir) 100 mg PO BIDBS [facility]; Protocol Last Admin: 01/05/19 18:08 Dose: 100 mg Trazodone HCl (Desyrel) 50 mg PO HS [facility] Results - Vital Signs Recent Vital Signs: Last Vital Signs Temp 98.0 F 01/05/19 21:40 Pulse 76 01/05/19 21:40 Resp 20 01/05/19 15:00 BP 106/69 01/05/19 21:40 Pulse Ox 98 01/05/19 15:00 - Labs Result Diagrams: 01/05/19 04:17 01/05/19 04:17 Labs: Laboratory Results - last 24 hr 01/05/19 01/05/19 01/05/19 04:17 04:17 04:17 WBC 4.4 L RBC 3.86 Hgb 10.7 L Hct 32.1 L MCV 83.2 D MCH 27.7 MCHC 33.3 RDW 13.0 Plt Count 340 D MPV 7.8 Neut % (Auto) 49.1 L Lymph % (Auto) 32.2 [place] % (Auto) 16.3 H Eos % (Auto) 1.9 Baso % (Auto) 0.5 Neut # (Auto) 2.2 Lymph # (Auto) 1.4 [place] # (Auto) 0.7 Eos # (Auto) 0.1 Baso # (Auto) 0.0 PT 14.6 H INR 1.3 APTT 28.4 Sodium 138 Potassium 3.8 Chloride 106 Carbon Dioxide 24 Anion Gap 12 BUN 19 H Creatinine 0.8 Est GFR ( Amer) > 60 Est GFR (Non-Af Amer) > 60 Random Glucose 92 Calcium 9.2 Total Bilirubin 0.2 AST 19 ALT 9 D Alkaline Phosphatase 80 Total Creatine Kinase CK-MB (Mass) Troponin I < 0.0120 Total Protein 8.4 H Albumin 3.4 L D Globulin 5.0 H Albumin/Globulin Ratio 0.7 L TSH 3rd Generation 2.23 01/05/19 01/05/19 14:02 19:08 WBC RBC Hgb Hct MCV MCH MCHC RDW Plt Count MPV Neut % (Auto) Lymph % (Auto) [place] % (Auto) Eos % (Auto) Baso % (Auto) Neut # (Auto) Lymph # (Auto) [place] # (Auto) Eos # (Auto) Baso # (Auto) PT INR APTT Sodium Potassium Chloride Carbon Dioxide Anion Gap BUN Creatinine Est GFR ( Amer) Est GFR (Non-Af Amer) Random Glucose Calcium Total Bilirubin AST ALT Alkaline Phosphatase Total Creatine Kinase 51 38 CK-MB (Mass) 0.70 0.39 Troponin I < 0.0120 < 0.0120 Total Protein Albumin Globulin Albumin/Globulin Ratio TSH 3rd Generation
[2019-01-05] MEDS ORDERED: Vancomycin 1 gm/NS 200 ml 1 GM/200 ML BAG IVPB STA (22:45)
[2019-01-05] MEDS: Cefepime IV 2 gm in Dextrose 2 GM/100 ML BAG IVPB SCH (23:50)
[2019-01-06 08:07] LABS: BASO % 0.8 % (0.0-2.0); EOS # 0.1 K/uL (0.0-0.7); EOS % 2.2 % (0.0-4.0); HEMOGLOBIN 11.3 g/dL (11.0-16.0); LYMPH % 18.9 % (20.0-40.0); MEAN CELL VOLUME 82.7 fL (81.0-99.0); MEAN CORPUSCULAR HEMOGLOBIN 27.6 pg (27.0-31.0); MEAN CORPUSCULAR HGB CONC 33.4 g/dL (33.0-37.0); MEAN PLATELET VOLUME 7.6 fL (7.2-11.7); MONO # 0.6 K/uL (0.0-0.8); MONO % 11.2 % (0.0-10.0); NEUT # 3.6 K/uL (1.8-7.0); NEUT % 66.9 % (50.0-75.0); RBC 4.1 Mil/uL (3.80-5.20); RED CELL DISTRIBUTION WIDTH 13.4 % (11.5-14.5); WHITE BLOOD COUNT 5.4 K/uL (4.8-10.8)
[2019-01-06 08:30] LABS: ALB/GLOB RATIO 0.8 (1.0-2.1); ALBUMIN 3.7 g/dL (3.5-5.0); ALT/SGPT 11 U/L (9-52); AST/SGOT 27 U/L (14-36); BLOOD UREA NITROGEN 21 mg/dL (7-17); CALCIUM 9.3 mg/dl (8.6-10.4); GFR NON-AFRICAN AMERICAN > 60
[2019-01-06] MEDS: Emtricitabine-Tenofovir 200 mg-300 mg Tab PO SCH (09:24)
[2019-01-06] MEDS: Cefepime IV 2 gm in Dextrose 2 GM/100 ML BAG IVPB SCH ×2 (10:41→22:38)
--- NOTE | 2019-01-06 17:00 | CP.PCM.PN ---
Subjective - Date & Time of Evaluation Date of Evaluation: 01/06/19 Time of Evaluation: 08:00 - Subjective Subjective: patient seen today no dizziness, no diarrhea, no fever, no nausea, no vomiting no shortness of breath Objective - Vital Signs/Intake and Output Vital Signs (last 24 hours): Temp Pulse Resp BP Pulse Ox 99.1 F 76 20 104/69 94 L 01/06/19 16:00 01/06/19 16:00 01/06/19 16:00 01/06/19 16:00 01/06/19 16:00 - Medications Medications: Current Medications Darunavir (Prezista) 600 mg PO BID [facility]; Protocol Last Admin: 01/06/19 09:25 Dose: 600 mg Diltiazem HCl (Cardizem) 30 mg PO Q8 [facility] Last Admin: 01/06/19 13:41 Dose: 30 mg Emtricitabine/Tenofovir (Truvada 200 Mg-300 Mg) 1 tab PO DAILY [facility]; Protocol Last Admin: 01/06/19 09:24 Dose: 1 tab Cefepime HCl (Maxipime Iv 2 Gm Premix) 2 gm in 100 mls @ 100 mls/hr IVPB Q12H [facility]; Protocol Stop: 01/10/19 22:46 Last Admin: 01/06/19 10:41 Dose: 100 mls/hr Olanzapine (Zyprexa) 20 mg PO DAILY [facility] Last Admin: 01/06/19 09:24 Dose: 20 mg Oxybutynin Chloride (Ditropan Xl) 15 mg PO DAILY [facility] Last Admin: 01/06/19 09:25 Dose: 15 mg Paroxetine HCl (Paxil) 10 mg PO DAILY [facility] Last Admin: 01/06/19 09:25 Dose: 10 mg Ritonavir (Norvir) 100 mg PO BIDBS [facility]; Protocol Last Admin: 01/06/19 16:21 Dose: 100 mg Trazodone HCl (Desyrel) 50 mg PO HS [facility] Last Admin: 01/05/19 22:24 Dose: Not Given - Labs Labs: 01/06/19 08:00 01/06/19 08:00 PT 14.6 SECONDS (9.7-12.2) H 01/05/19 04:17 INR 1.3 01/05/19 04:17 APTT 28.4 SECONDS (21-34) 01/05/19 04:17 - Constitutional Appears: Well - Head Exam Head Exam: ATRAUMATIC, NORMAL INSPECTION, NORMOCEPHALIC - Eye Exam Eye Exam: EOMI, Normal appearance, PERRL Pupil Exam: NORMAL ACCOMODATION, PERRL - ENT Exam ENT Exam: Mucous Membranes Moist, Normal Exam - Neck Exam Neck Exam: Full ROM, Normal Inspection. absent: Lymphadenopathy - Respiratory Exam Respiratory Exam: Decreased Breath Sounds - Cardiovascular Exam Cardiovascular Exam: REGULAR RHYTHM, +S1, +S2 - GI/Abdominal Exam GI & Abdominal Exam: Soft, Diminished Bowel Sounds - Rectal Exam Rectal Exam: Deferred - Neurological Exam Neurological Exam: Oriented x3 Assessment and Plan - Assessment and Plan (Free Text) Plan: plan discussed with patient moderate complexity of care medications reviewed labs reviewed vitals reviewed bactrim ds cardizem desyrel ditropan xl lovenox maxipime IV norvir paxil pepcid prezista sodium chloride truvada zyprexa
[2019-01-06 22:24] LABS: SQUAMOUS EPITHIAL 1 /hpf (0-5); URINE BILIRUBIN NEGATIVE (NEGATIVE); URINE BLOOD 1+ (NEGATIVE); URINE CLARITY Clear (Clear); URINE COLOR Yellow (YELLOW); URINE GLUCOSE (UA) NORMAL (Normal); URINE LEUKOCYTE ESTERASE NEG Leu/uL (Negative); URINE PROTEIN NEGATIVE (NEGATIVE); URINE UROBILINOGEN NORMAL mg/dL (0.2-1.0)
[2019-01-07] MEDS: Tmp-Smz 800 mg-160 mg DS Tab PO SCH ×3 (00:29→23:52)
--- NOTE | 2019-01-07 07:21 | CP.PCM.PN ---
Subjective - Date & Time of Evaluation Date of Evaluation: 01/06/19 Time of Evaluation: 19:20 - Subjective Subjective: Patient seen and evaluated Denies chest pain and dyspnea No additional cardiac events noted Review of Systems - Review of Systems All systems: reviewed and no additional remarkable complaints except (HPI) Physical Exam - Additional Findings Additional findings: * HEENT NAILA, no thrush * Neck Supple * Chest b/l some rattling noise in lower lobes, no wheezing, RR in 40's * CVS sinus vs MAT * PA soft, nt bs present * Ext no edema * Skin dry, reduced turgor * [employer] awake oriented x3 no fnd * Assessment & Plan - Assessment and Plan (Free Text) Assessment: * HIV/AIDS, noncompliance * s/p SVT, MAT * OSVALDO * Dehydration * Cocaine abuse * Schizopherenia * Immunochrompomised. Plan: * Cardizem/IVF * CD4 panel * IVF aggressive * GI/DVT prophylaxis * Check ECHO * DVT/GI prophylaxis Objective - Vital Signs/Intake and Output Vital Signs (last 24 hours): Temp Pulse Resp BP Pulse Ox 97.2 F L 74 20 97/66 L 98 01/06/19 23:00 01/06/19 23:00 01/06/19 23:00 01/06/19 23:00 01/07/19 04:00 Intake and Output: 01/07/19 01/07/19 06:59 18:59 Intake Total 340 Balance 340 - Medications Medications: Current Medications Darunavir (Prezista) 600 mg PO BID [facility]; Protocol Last Admin: 01/06/19 17:53 Dose: 600 mg Diltiazem HCl (Cardizem) 30 mg PO Q8 [facility] Last Admin: 01/07/19 05:15 Dose: 30 mg Emtricitabine/Tenofovir (Truvada 200 Mg-300 Mg) 1 tab PO DAILY [facility]; Protocol Last Admin: 01/06/19 09:24 Dose: 1 tab Enoxaparin Sodium (Lovenox) 40 mg SC DAILY [facility] Famotidine (Pepcid) 20 mg PO DAILY [facility] Cefepime HCl (Maxipime Iv 2 Gm Premix) 2 gm in 100 mls @ 100 mls/hr IVPB Q12H [facility]; Protocol Stop: 01/10/19 22:46 Last Admin: 01/06/19 22:38 Dose: 100 mls/hr Sodium Chloride (Sodium Chloride 0.9%) 1,000 mls @ 70 mls/hr IV .[id number] [facility] Olanzapine (Zyprexa) 20 mg PO DAILY [facility] Last Admin: 01/06/19 09:24 Dose: 20 mg Oxybutynin Chloride (Ditropan Xl) 15 mg PO DAILY [facility] Last Admin: 01/06/19 09:25 Dose: 15 mg Paroxetine HCl (Paxil) 10 mg PO DAILY [facility] Last Admin: 01/06/19 09:25 Dose: 10 mg Ritonavir (Norvir) 100 mg PO BIDBS [facility]; Protocol Last Admin: 01/06/19 16:21 Dose: 100 mg Trazodone HCl (Desyrel) 50 mg PO HS [facility] Last Admin: 01/06/19 21:13 Dose: 50 mg Trimethoprim/Sulfamethoxazole (Bactrim Ds Tab) 1 tab PO Q12H [facility]; Protocol Last Admin: 01/07/19 00:29 Dose: 1 tab - Labs Labs: 01/06/19 08:00 01/06/19 08:00 PT 14.6 SECONDS (9.7-12.2) H 01/05/19 04:17 INR 1.3 01/05/19 04:17 APTT 28.4 SECONDS (21-34) 01/05/19 04:17
[2019-01-07] MEDS: Sodium Chloride 0.9% 1,000 ML IV SCH ×2 (08:27→22:07)
[2019-01-07] MEDS: Emtricitabine-Tenofovir 200 mg-300 mg Tab PO SCH (10:11)
[2019-01-07] MEDS: Cefepime IV 2 gm in Dextrose 2 GM/100 ML BAG IVPB SCH ×2 (10:12→22:38)
[2019-01-07] MEDS: Enoxaparin 40 mg Syringe SC SCH (10:12)
--- NOTE | 2019-01-07 16:50 | CP.PCM.PN ---
Subjective - Date & Time of Evaluation Date of Evaluation: 01/07/19 Time of Evaluation: 09:50 - Subjective Subjective: patient seen today no nausea no vomiting no dizziness no diarrhea no fever no shortness of breath Objective - Vital Signs/Intake and Output Vital Signs (last 24 hours): Temp Pulse Resp BP Pulse Ox 97.3 F L 70 20 93/57 L 97 01/07/19 15:00 01/07/19 15:00 01/07/19 15:00 01/07/19 15:00 01/07/19 15:00 Intake and Output: 01/07/19 01/07/19 06:59 18:59 Intake Total 340 400 Balance 340 400 - Medications Medications: Current Medications Darunavir (Prezista) 600 mg PO BID [facility]; Protocol Last Admin: 01/07/19 10:11 Dose: 600 mg Diltiazem HCl (Cardizem) 30 mg PO Q8 [facility] Last Admin: 01/07/19 13:05 Dose: 30 mg Emtricitabine/Tenofovir (Truvada 200 Mg-300 Mg) 1 tab PO DAILY [facility]; Protocol Last Admin: 01/07/19 10:11 Dose: 1 tab Enoxaparin Sodium (Lovenox) 40 mg SC DAILY [facility] Last Admin: 01/07/19 10:12 Dose: 40 mg Famotidine (Pepcid) 20 mg PO DAILY [facility] Last Admin: 01/07/19 10:11 Dose: 20 mg Cefepime HCl (Maxipime Iv 2 Gm Premix) 2 gm in 100 mls @ 100 mls/hr IVPB Q12H [facility]; Protocol Stop: 01/10/19 22:46 Last Admin: 01/07/19 10:12 Dose: 100 mls/hr Sodium Chloride (Sodium Chloride 0.9%) 1,000 mls @ 70 mls/hr IV .[id number] [facility] Last Admin: 01/07/19 08:27 Dose: 70 mls/hr Olanzapine (Zyprexa) 20 mg PO DAILY [facility] Last Admin: 01/07/19 10:11 Dose: 20 mg Oxybutynin Chloride (Ditropan Xl) 15 mg PO DAILY [facility] Last Admin: 01/07/19 10:18 Dose: 15 mg Paroxetine HCl (Paxil) 10 mg PO DAILY [facility] Last Admin: 01/07/19 10:11 Dose: 10 mg Ritonavir (Norvir) 100 mg PO BIDBS [facility]; Protocol Last Admin: 01/07/19 16:29 Dose: 100 mg Trazodone HCl (Desyrel) 50 mg PO HS [facility] Last Admin: 01/06/19 21:13 Dose: 50 mg Trimethoprim/Sulfamethoxazole (Bactrim Ds Tab) 1 tab PO Q12H [facility]; Protocol Last Admin: 01/07/19 12:02 Dose: 1 tab - Labs Labs: 01/06/19 08:00 01/06/19 08:00 PT 14.6 SECONDS (9.7-12.2) H 01/05/19 04:17 INR 1.3 01/05/19 04:17 APTT 28.4 SECONDS (21-34) 01/05/19 04:17 - Constitutional Appears: Well - Head Exam Head Exam: ATRAUMATIC, NORMAL INSPECTION, NORMOCEPHALIC - Eye Exam Eye Exam: EOMI, Normal appearance, PERRL Pupil Exam: NORMAL ACCOMODATION, PERRL - ENT Exam ENT Exam: Mucous Membranes Moist, Normal Exam - Neck Exam Neck Exam: Full ROM, Normal Inspection. absent: Lymphadenopathy - Respiratory Exam Respiratory Exam: Decreased Breath Sounds - Cardiovascular Exam Cardiovascular Exam: REGULAR RHYTHM, +S1, +S2 - GI/Abdominal Exam GI & Abdominal Exam: Soft, Diminished Bowel Sounds - Rectal Exam Rectal Exam: Deferred - Neurological Exam Neurological Exam: Oriented x3 Assessment and Plan - Assessment and Plan (Free Text) Plan: plan discussed with patient and family moderate to severe complexity of care medications reviewed labs reviewed vitals reviewed bactrim ds cardizem desyrel ditropan xl lovenox maxipime IV norvir paxil pepcid prezista sodium chloride truvada zyprexa
[2019-01-08 01:19] VITALS: RESP 20
[2019-01-08] MEDS: Enoxaparin 40 mg Syringe SC SCH (10:47)
[2019-01-08] MEDS: Emtricitabine-Tenofovir 200 mg-300 mg Tab PO SCH (10:47)
[2019-01-08] MEDS: Cefepime IV 2 gm in Dextrose 2 GM/100 ML BAG IVPB SCH (10:49)
--- NOTE | 2019-01-08 12:15 | CP.PCM.PN ---
Subjective - Date & Time of Evaluation Date of Evaluation: 01/08/19 Time of Evaluation: 08:00 - Subjective Subjective: afebrile in nad Objective - Vital Signs/Intake and Output Vital Signs (last 24 hours): Temp Pulse Resp BP Pulse Ox 97.9 F 73 20 94/63 L 97 01/08/19 07:14 01/08/19 07:14 01/08/19 07:14 01/08/19 07:14 01/08/19 07:14 Intake and Output: 01/08/19 01/08/19 06:59 18:59 Intake Total 1290 Output Total 1300 Balance -10 - Medications Medications: Current Medications Darunavir (Prezista) 600 mg PO BID [facility]; Protocol Last Admin: 01/08/19 10:47 Dose: 600 mg Diltiazem HCl (Cardizem) 30 mg PO Q8 [facility] Last Admin: 01/08/19 06:01 Dose: 30 mg Emtricitabine/Tenofovir (Truvada 200 Mg-300 Mg) 1 tab PO DAILY [facility]; Protocol Last Admin: 01/08/19 10:47 Dose: 1 tab Enoxaparin Sodium (Lovenox) 40 mg SC DAILY [facility] Last Admin: 01/08/19 10:47 Dose: 40 mg Famotidine (Pepcid) 20 mg PO DAILY [facility] Last Admin: 01/08/19 10:47 Dose: 20 mg Cefepime HCl (Maxipime Iv 2 Gm Premix) 2 gm in 100 mls @ 100 mls/hr IVPB Q12H [facility]; Protocol Stop: 01/10/19 22:46 Last Admin: 01/08/19 10:49 Dose: 100 mls/hr Sodium Chloride (Sodium Chloride 0.9%) 1,000 mls @ 70 mls/hr IV .[id number] [facility] Last Admin: 01/07/19 22:07 Dose: 70 mls/hr Olanzapine (Zyprexa) 20 mg PO DAILY [facility] Last Admin: 01/08/19 10:47 Dose: 20 mg Oxybutynin Chloride (Ditropan Xl) 15 mg PO DAILY [facility] Last Admin: 01/08/19 10:48 Dose: 15 mg Paroxetine HCl (Paxil) 10 mg PO DAILY [facility] Last Admin: 01/08/19 10:48 Dose: 10 mg Ritonavir (Norvir) 100 mg PO BIDBS [facility]; Protocol Last Admin: 01/08/19 08:30 Dose: 100 mg Trazodone HCl (Desyrel) 50 mg PO [facility] Last Admin: 01/07/19 21:35 Dose: 50 mg - Labs Labs: 01/06/19 08:00 01/06/19 08:00 PT 14.6 SECONDS (9.7-12.2) H 01/05/19 04:17 INR 1.3 01/05/19 04:17 APTT 28.4 SECONDS (21-34) 01/05/19 04:17 - Constitutional Appears: Non-toxic, No Acute Distress, Chronically Ill - Head Exam Head Exam: ATRAUMATIC, NORMAL INSPECTION, NORMOCEPHALIC - Eye Exam Eye Exam: EOMI, Normal appearance, PERRL Pupil Exam: NORMAL ACCOMODATION, PERRL - ENT Exam ENT Exam: Mucous Membranes Moist, Normal Exam - Neck Exam Neck Exam: Full ROM, Normal Inspection. absent: Lymphadenopathy - Respiratory Exam Respiratory Exam: Clear to Ausculation Bilateral, NORMAL BREATHING PATTERN - Cardiovascular Exam Cardiovascular Exam: REGULAR RHYTHM, +S1, +S2. absent: Murmur - GI/Abdominal Exam GI & Abdominal Exam: Soft, Normal Bowel Sounds. absent: Tenderness - Rectal Exam Rectal Exam: Deferred - Extremities Exam Extremities Exam: Full ROM, Normal Capillary Refill, Normal Inspection. absent: Joint Swelling, Pedal Edema - Back Exam Back Exam: NORMAL INSPECTION - Neurological Exam Neurological Exam: Alert, Awake, CN II-XII Intact, Normal Gait, Oriented x3 - Psychiatric Exam Psychiatric exam: Normal Affect, Normal Mood - Skin Skin Exam: Dry, Intact, Normal Color, Warm Assessment and Plan (1) SVT (supraventricular tachycardia) Status: Acute (2) ARF (acute renal failure) Status: Acute (3) Altered mental state Status: Acute (4) CHF (congestive heart failure) Status: Acute (5) Cocaine abuse Status: Acute (6) Cocaine use disorder, severe, dependence Status: Acute (7) HIV (human immunodeficiency virus infection) Status: Acute (8) Human immunodeficiency virus Status: Acute (9) Manic bipolar I disorder Status: Acute - Assessment and Plan (Free Text) Assessment: d/c home on PO rx folllow up with PMD and clinic
--- NOTE | 2019-01-08 12:51 | CP.PCM.PN ---
Subjective - Date & Time of Evaluation Date of Evaluation: 01/08/19 Time of Evaluation: 07:40 - Subjective Subjective: patient examined today no nausea no vomiting no diarrhea no dizziness no fever no shortness of breath Objective - Vital Signs/Intake and Output Vital Signs (last 24 hours): Temp Pulse Resp BP Pulse Ox 97.9 F 73 20 94/63 L 97 01/08/19 07:14 01/08/19 07:14 01/08/19 07:14 01/08/19 07:14 01/08/19 07:14 Intake and Output: 01/08/19 01/08/19 06:59 18:59 Intake Total 1290 Output Total 1300 Balance -10 - Medications Medications: Current Medications Darunavir (Prezista) 600 mg PO BID [facility]; Protocol Last Admin: 01/08/19 10:47 Dose: 600 mg Diltiazem HCl (Cardizem) 30 mg PO Q8 [facility] Last Admin: 01/08/19 06:01 Dose: 30 mg Emtricitabine/Tenofovir (Truvada 200 Mg-300 Mg) 1 tab PO DAILY [facility]; Protocol Last Admin: 01/08/19 10:47 Dose: 1 tab Enoxaparin Sodium (Lovenox) 40 mg SC DAILY [facility] Last Admin: 01/08/19 10:47 Dose: 40 mg Famotidine (Pepcid) 20 mg PO DAILY [facility] Last Admin: 01/08/19 10:47 Dose: 20 mg Cefepime HCl (Maxipime Iv 2 Gm Premix) 2 gm in 100 mls @ 100 mls/hr IVPB Q12H [facility]; Protocol Stop: 01/10/19 22:46 Last Admin: 01/08/19 10:49 Dose: 100 mls/hr Sodium Chloride (Sodium Chloride 0.9%) 1,000 mls @ 70 mls/hr IV .[id number] [facility] Last Admin: 01/07/19 22:07 Dose: 70 mls/hr Olanzapine (Zyprexa) 20 mg PO DAILY [facility] Last Admin: 01/08/19 10:47 Dose: 20 mg Oxybutynin Chloride (Ditropan Xl) 15 mg PO DAILY [facility] Last Admin: 01/08/19 10:48 Dose: 15 mg Paroxetine HCl (Paxil) 10 mg PO DAILY [facility] Last Admin: 01/08/19 10:48 Dose: 10 mg Ritonavir (Norvir) 100 mg PO BIDBS [facility]; Protocol Last Admin: 01/08/19 08:30 Dose: 100 mg Trazodone HCl (Desyrel) [address] [facility] Last Admin: 01/07/19 21:35 Dose: 50 mg - Labs Labs: 01/06/19 08:00 01/06/19 08:00 PT 14.6 SECONDS (9.7-12.2) H 01/05/19 04:17 INR 1.3 01/05/19 04:17 APTT 28.4 SECONDS (21-34) 01/05/19 04:17 - Constitutional Appears: Well - Head Exam Head Exam: ATRAUMATIC, NORMAL INSPECTION, NORMOCEPHALIC - Eye Exam Eye Exam: EOMI, Normal appearance, PERRL Pupil Exam: NORMAL ACCOMODATION, PERRL - ENT Exam ENT Exam: Mucous Membranes Moist, Normal Exam - Neck Exam Neck Exam: Full ROM, Normal Inspection. absent: Lymphadenopathy - Respiratory Exam Respiratory Exam: Decreased Breath Sounds - Cardiovascular Exam Cardiovascular Exam: REGULAR RHYTHM, +S1, +S2 - GI/Abdominal Exam GI & Abdominal Exam: Soft, Diminished Bowel Sounds - Rectal Exam Rectal Exam: Deferred - Neurological Exam Neurological Exam: Oriented x3 Assessment and Plan (1) ARF (acute renal failure) Status: Acute (2) Acute psychosis Status: Acute (3) Altered mental state Status: Acute (4) Anemia Status: Acute (5) Ankle pain, chronic Status: Acute (6) Aortic regurgitation Status: Acute (7) Back pain Status: Acute (8) Bizarre behavior Status: Acute (9) CHF (congestive heart failure) Status: Acute (10) Chest pain Status: Acute (11) Cocaine abuse Status: Acute (12) Cocaine use disorder, severe, dependence Status: Acute (13) Dental caries Status: Acute (14) Fever Status: Acute (15) Foot pain Status: Acute (16) Foreign body Status: Acute (17) HIV (human immunodeficiency virus infection) Status: Acute (18) Human immunodeficiency virus Status: Acute (19) Manic bipolar I disorder Status: Acute (20) Mitral regurgitation Status: Acute (21) Palpitations Status: Acute (22) Pneumonia Status: Acute (23) Pneumonia Status: Acute (24) Psychoses Status: Acute (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 (26) Puncture wound of foot Status: Acute (27) Respiratory failure Status: Acute (28) SVT (supraventricular tachycardia) Status: Acute (29) Schizoaffective disorder Status: Acute (30) Schizophrenia Status: Acute (31) Schizophrenia Status: Acute (32) Sprain of elbow Status: Acute (33) URI (upper respiratory infection) Status: Acute (34) Vaginal sore Status: Acute - Assessment and Plan (Free Text) Plan: plan discussed with patient moderate complexity of care cardizem desyrel ditropan xl lovenox maximpime norvir paxil pepcid prezista sodium chloride truvada zyprexa medications reviewed labs reviewed vitals reviewed
[2019-01-08] MEDS: Sodium Chloride 0.9% 1,000 ML IV SCH (13:00)
[2019-01-08 15:17] VITALS: PULSE 88
[2019-01-08 15:37] VITALS: BP 99/61; TEMP 98.6; O2SAT 97
--- NOTE | 2019-01-08 17:38 | CP.PCM.PN ---
Subjective - Date & Time of Evaluation Date of Evaluation: 01/08/19 (n) Time of Evaluation: 17:37 - Subjective Subjective: 58 F with h/o schizophrenia, h/o svt, HIV/AIDS, non compliance with the treatment, tobacco, cocaine abuse, as per information available in the chart as patient was sob and had difficulty in speaking due to dry mouth, she was found in grocery store, sob and EMS called. In ER patient's HR in mid 200s, she was treated with adenosine. Pt seen and examined. Pt alert and oriented, lying comfortably in bed with no complaints at this time. Pt denied and chest pain, palpitations or SOB. Objective - Vital Signs/Intake and Output Vital Signs (last 24 hours): Temp Pulse Resp BP Pulse Ox 98.6 F 88 20 99/61 L 97 01/08/19 15:00 01/08/19 15:06 01/08/19 15:00 01/08/19 15:00 01/08/19 15:00 Intake and Output: 01/08/19 01/08/19 06:59 18:59 Intake Total 1290 Output Total 1300 Balance -10 - Medications Medications: Current Medications Darunavir (Prezista) 600 mg PO BID [facility]; Protocol Last Admin: 01/08/19 17:14 Dose: 600 mg Diltiazem HCl (Cardizem) 30 mg PO Q8 [facility] Last Admin: 01/08/19 13:15 Dose: 30 mg Emtricitabine/Tenofovir (Truvada 200 Mg-300 Mg) 1 tab PO DAILY [facility]; Protocol Last Admin: 01/08/19 10:47 Dose: 1 tab Enoxaparin Sodium (Lovenox) 40 mg SC DAILY [facility] Last Admin: 01/08/19 10:47 Dose: 40 mg Famotidine (Pepcid) 20 mg PO DAILY [facility] Last Admin: 01/08/19 10:47 Dose: 20 mg Cefepime HCl (Maxipime Iv 2 Gm Premix) 2 gm in 100 mls @ 100 mls/hr IVPB Q12H [facility]; Protocol Stop: 01/10/19 22:46 Last Admin: 01/08/19 10:49 Dose: 100 mls/hr Sodium Chloride (Sodium Chloride 0.9%) 1,000 mls @ 70 mls/hr IV .[id number] [facility] Last Admin: 01/08/19 13:00 Dose: Not Given Olanzapine (Zyprexa) 20 mg PO DAILY [facility] Last Admin: 01/08/19 10:47 Dose: 20 mg Oxybutynin Chloride (Ditropan Xl) 15 mg PO DAILY [facility] Last Admin: 01/08/19 10:48 Dose: 15 mg Paroxetine HCl (Paxil) 10 mg PO DAILY [facility] Last Admin: 01/08/19 10:48 Dose: 10 mg Ritonavir (Norvir) 100 mg PO BIDBS [facility]; Protocol Last Admin: 01/08/19 17:14 Dose: 100 mg Trazodone HCl (Desyrel) 50 mg PO HS [facility] Last Admin: 01/07/19 21:35 Dose: 50 mg - Labs Labs: 01/06/19 08:00 01/06/19 08:00 PT 14.6 SECONDS (9.7-12.2) H 01/05/19 04:17 INR 1.3 01/05/19 04:17 APTT 28.4 SECONDS (21-34) 01/05/19 04:17 Assessment and Plan - Assessment and Plan (Free Text) Assessment: pt alert and oriented x3. VSS, Labs reviewed. Resp even and unlabored. Abdomen soft nontender. As per Dr. Cotter, Dr. Abrams cleared pt to be discharged. Dr. Rosenbaum cleared pt. Discharge discussed with pt, family and Dr. Barbra Tapia. Plan: Follow up with Dr. Barbra Tapia in 1 week Follow up with Dr. Rosenbaum in 2-3 weeks Follow up with Dr. Abrams in 1 week for echo results Resume all home medications Activity as tolerated Call Dr. Barbra Tapia or go to the emergancy room if symptoms return or worsen Discuss with patient at the bedside who agreed and verbalized understanding
--- NOTE | 2019-01-08 19:56 | CARD ---
APPROVED REPORT Date of service: 01/08/2019 EXAM: Two-dimensional and M-mode echocardiogram with Doppler and color Doppler. Other Information Quality : GoodRhythm : INDICATION Dyspnea Chest Pain HIV RISK FACTORS Smoking 2D DIMENSIONS IVSd0.8 (0.7-1.1cm)LVDd4.2 (3.9-5.9cm) PWd0.8 (0.7-1.1cm)LA [id number] (18-58mL) LVDs2.4 (2.5-4.0cm)FS (%) 42.4 % LVEF (%)73.8 (>50%)LVEF ([place]'s)68.64 % M-Mode DIMENSIONS Left Atrium (MM)3.30 (2.5-4.0cm)IVSd1.14 (0.7-1.1cm) Aortic Root3.19 (2.2-3.7cm)LVDd4.10 (4.0-5.6cm) Aortic Cusp Exc.2.22 (1.5-2.0cm)PWd0.87 (0.7-1.1cm) FS (%) 43 %LVDs2.35 (2.0-3.8cm) LVEF (%)74 (>50%) Aortic Valve AI P 1/2 [id number] Mitral Valve MV E Pnadyznc20.3cm/sMV A Cvvkypud51.0cm/sE/A ratio1.0 TDI Lateral E' Peak V11.26cm/sMedial E' Peak V7.38cm/sE/Lateral E'6.3 E/Medial E'9.7 Tricuspid Valve TR Peak [id number]/sTR Peak [id number] LEFT VENTRICLE The left ventricle is normal size. There is normal left ventricular wall thickness. The left ventricular function is normal. The left ventricular ejection fraction is within the normal range. There is normal LV segmental wall motion. Transmitral Doppler flow pattern is Grade I-abnormal relaxation pattern. RIGHT VENTRICLE The right ventricle is normal size. There is normal right ventricular wall thickness. The right ventricular systolic function is normal. ATRIA The left atrium size is normal. The right atrium size is normal. AORTIC VALVE The aortic valve is normal in structure. There is mild aortic regurgitation. There is no aortic valvular stenosis. MITRAL VALVE The mitral valve is normal in structure. There is no mitral valve stenosis. Mitral regurgitation is trace. TRICUSPID VALVE There is mild tricuspid regurgitation. There is mild pulmonary hypertension. GREAT VESSELS The aortic root is normal in size. The IVC is normal in size and collapses >50% with inspiration. <Conclusion> There is normal left ventricular wall thickness. The left ventricular function is normal. The left ventricular ejection fraction is within the normal range. There is normal LV segmental wall motion. There is mild aortic regurgitation. Mitral regurgitation is trace. There is mild tricuspid regurgitation. There is mild pulmonary hypertension.
--- NOTE | 2019-01-08 20:28 | CP.PCM.DIS ---
Provider - Provider Date of Admission: 01/05/19 04:54 Attending physician: Guerita Tapia MD Consults: 01/05/19 04:55 Cardiology Consult Routine Comment: svt Consulting Provider: Wong Abrams Consulting Physician: Wong Abrams Reason for Consult: svt 01/05/19 21:28 Physician Consult Routine Comment: Consulting Provider: Hesham Rosenbaum Consulting Physician: Hesham Rosenbaum Reason for Consult: sepsis Time Spent in preparation of Discharge (in minutes): 30 Hospital Course - Lab Results Lab Results: Micro Results 01/06/19 22:15 Urine,Clean Catch Urine Culture - Final No Growth (<1,000 CFU/ML) 01/06/19 06:55 Blood-Venous Blood Culture - Preliminary NO GROWTH AFTER 48 HOURS 01/06/19 08:00 Blood-Venous Blood Culture - Preliminary NO GROWTH AFTER 48 HOURS Most Recent Lab Values WBC 5.4 K/uL (4.8-10.8) 01/06/19 08:00 RBC 4.10 Mil/uL (3.80-5.20) 01/06/19 08:00 Hgb 11.3 g/dL (11.0-16.0) 01/06/19 08:00 Hct 33.9 % (34.0-47.0) L 01/06/19 08:00 MCV 82.7 fL (81.0-99.0) 01/06/19 08:00 MCH 27.6 pg (27.0-31.0) 01/06/19 08:00 MCHC 33.4 g/dL (33.0-37.0) 01/06/19 08:00 RDW 13.4 % (11.5-14.5) 01/06/19 08:00 Plt Count 361 K/uL (130-400) 01/06/19 08:00 MPV 7.6 fL (7.2-11.7) 01/06/19 08:00 Neut % (Auto) 66.9 % (50.0-75.0) 01/06/19 08:00 Lymph % (Auto) 18.9 % (20.0-40.0) L 01/06/19 08:00 Granite % (Auto) 11.2 % (0.0-10.0) H 01/06/19 08:00 Eos % (Auto) 2.2 % (0.0-4.0) 01/06/19 08:00 Baso % (Auto) 0.8 % (0.0-2.0) 01/06/19 08:00 Neut # (Auto) 3.6 K/uL (1.8-7.0) 01/06/19 08:00 Lymph # (Auto) 1.0 K/uL (1.0-4.3) 01/06/19 08:00 Granite # (Auto) 0.6 K/uL (0.0-0.8) 01/06/19 08:00 Eos # (Auto) 0.1 K/uL (0.0-0.7) 01/06/19 08:00 Baso # (Auto) 0.0 K/uL (0.0-0.2) 01/06/19 08:00 PT 14.6 SECONDS (9.7-12.2) H 01/05/19 04:17 INR 1.3 01/05/19 04:17 APTT 28.4 SECONDS (21-34) 01/05/19 04:17 Sodium 141 mmol/L (132-148) 01/06/19 08:00 Potassium 3.9 mmol/L (3.6-5.2) 01/06/19 08:00 Chloride 108 mmol/L (98-107) H 01/06/19 08:00 Carbon Dioxide 24 mmol/L (22-30) 01/06/19 08:00 Anion Gap 13 (10-20) 01/06/19 08:00 BUN 21 mg/dL (7-17) H 01/06/19 08:00 Creatinine 0.9 mg/dL (0.7-1.2) 01/06/19 08:00 Est GFR ( Amer) > 60 01/06/19 08:00 Est GFR (Non-Af Amer) > 60 01/06/19 08:00 Random Glucose 92 mg/dL (65-105) 01/06/19 08:00 Calcium 9.3 mg/dl (8.6-10.4) 01/06/19 08:00 Total Bilirubin 0.4 mg/dL (0.2-1.3) 01/06/19 08:00 AST 27 U/L (14-36) 01/06/19 08:00 ALT 11 U/L (9-52) 01/06/19 08:00 Alkaline Phosphatase 86 U/L (38-126) 01/06/19 08:00 Total Creatine Kinase 38 U/L (30-135) 01/05/19 19:08 CK-MB (Mass) 0.39 ng/mL (0.0-3.38) 01/05/19 19:08 Troponin I < 0.0120 ng/mL (0.00-0.120) 01/05/19 19:08 Total Protein 8.6 g/dL (6.3-8.3) H 01/06/19 08:00 Albumin 3.7 g/dL (3.5-5.0) 01/06/19 08:00 Globulin 4.8 gm/dL (2.2-3.9) H 01/06/19 08:00 Albumin/Globulin Ratio 0.8 (1.0-2.1) L 01/06/19 08:00 TSH 3rd Generation 2.23 mIU/L (0.46-4.68) 01/05/19 04:17 Urine Color Yellow (YELLOW) 01/06/19 22:15 Urine Clarity Clear (Clear) 01/06/19 22:15 Urine pH 5.0 (5.0-8.0) 01/06/19 22:15 Ur Specific [place] 1.016 (1.003-1.030) 01/06/19 22:15 Urine Protein Negative mg/dL (NEGATIVE) 01/06/19 22:15 Urine Glucose (UA) Normal mg/dL (Normal) 01/06/19 22:15 Urine Ketones Negative mg/dL (NEGATIVE) 01/06/19 22:15 Urine Blood 1+ (NEGATIVE) H 01/06/19 22:15 Urine Nitrate Negative (NEGATIVE) 01/06/19 22:15 Urine Bilirubin Negative (NEGATIVE) 01/06/19 22:15 Urine Urobilinogen Normal mg/dL (0.2-1.0) 01/06/19 22:15 Ur Leukocyte Esterase Neg Lisa/uL (Negative) 01/06/19 22:15 Urine WBC (Auto) 2 /hpf (0-5) 01/06/19 22:15 Urine RBC (Auto) 4 /hpf (0-3) H 01/06/19 22:15 Ur Squamous Epith Cells 1 /hpf (0-5) 01/06/19 22:15 - Hospital Course Hospital Course: 58-year-old female with history of schizophrenia and history of HIV AIDS noncompliance with the follow-up with the treatment with history of hypertension came in because of SVT which patient has a has a history of drug abuse especially cocaine patient came in because [place] received adenosine Moderate to high complexity of care. Plan of care discussed with patient &/or family & staff. Medications reviewed and reconciled. Labs reviewed. Vitals reviewed. plan discussed with patient moderate complexity of care cardizem desyrel ditropan xl lovenox maximpime norvir paxil pepcid prezista sodium chloride truvada zyprexa medications reviewed labs reviewed vitals reviewed Discharge Exam - Head Exam Head Exam: ATRAUMATIC, NORMAL INSPECTION, NORMOCEPHALIC - Eye Exam Eye Exam: EOMI, Normal appearance, PERRL Pupil Exam: NORMAL ACCOMODATION, PERRL - Neck Exam Neck exam: Full Rom - Respiratory Exam Respiratory Exam: Decreased Breath Sounds - Cardiovascular Exam Cardiovascular Exam: REGULAR RHYTHM, +S1, +S2 - GI/Abdominal Exam GI & Abdominal Exam: Diminished Bowel Sounds, Firm, Soft - Rectal Exam Rectal Exam: Deferred - Neurological Exam Neurological exam: Oriented x3 - Skin Skin Exam: Intact Discharge Plan - Follow Up Plan Condition: FAIR Disposition: HOME/ ROUTINE Instructions: Heart Failure, Adult (DC), Chest Pain (DC), Supraventricular Tachycardia (SVT), Palpitations (DC) Additional Instructions: Follow up with Dr. Barbra Tapia in 1 week Follow up with Dr. Rosenbaum in 2-3 weeks Follow up with Dr. Abrams in 1 week for echo results Resume all home medications Activity as tolerated Call Dr. Barbra Tapia or go to the emergancy room if symptoms return or worsen Discuss with patient at the bedside who agreed and verbalized understanding Referrals: Wong Abrams MD [Staff Provider] - Hesham Rosenbaum MD [Staff Provider] - Isiah Tapia MD [Staff Provider] -
--- NOTE | 2019-01-09 00:09 | CARD ---
APPROVED REPORT Date of service: 01/05/2019 EKG Measurement Heart [id number] <Conclusion> Normal sinus rhythm Possible Left atrial enlargement Borderline ECG
[2019-01-09 11:10] LABS: % CD4 (T HELPER CELL) 4 Percent (30-61); % CD8 (SUPPRESSOR T CELL) 80 Percent (12-42); ABSOLUTE CD4 CELLS 48 Cells/mcL (490-1740); ABSOLUTE CD8 CELLS 906 Cells/mcL (180-1170); ABSOLUTE LYMPHOCYTES 1139 Cells/mcL (850-3900); HELPER/SUPPRESSOR RATIO 0.05 Ratio (0.86-5.00)
== END 2019-01-08 18:47 | disposition home or self-care (01) ==
LOC: C.ER 03:49 → C.5S 04:54
PROVIDERS: ADMIT Internal Medicine Nephrology; ATTEND Internal Medicine Nephrology
DX: I47.1 Supraventricular tachycardia (principal); I50.9 Heart failure, unspecified; J06.9 Acute upper respiratory infection, unspecified; J18.9 Pneumonia, unspecified organism; E86.0 Dehydration; F17.210 Nicotine dependence, cigarettes, uncomplicated; N17.9 Acute kidney failure, unspecified; Z91.19 Patient's noncompliance with other medical treatment and regimen; F41.9 Anxiety disorder, unspecified; I95.9 Hypotension, unspecified; B20 Human immunodeficiency virus [HIV] disease; D64.9 Anemia, unspecified; F14.20 Cocaine dependence, uncomplicated; F25.9 Schizoaffective disorder, unspecified; F31.9 Bipolar disorder, unspecified; I11.0 Hypertensive heart disease with heart failure
CPT/HCPCS: 36415; 71045; 80053; 81001; 84443; 84484; 85025; 85610; 85730; 86360; 87040; 87086; 87536; 93005; 93306; 96361; 96365; 96366; 96367; 96372; 99283; G0378; J0692; J1650; J3370; J7030